=== PATIENT | male | born 1970 ===

== ENCOUNTER 2020-11-05 10:08 | Outpatient (REF) | payer MEDICAID, SELFPAY ==
[2020-11-05 11:34] LABS: MANUAL DIFF FLAG NO
[2020-11-05 11:52] LABS: Basophils Percent Auto 0.2 % (0-2); Eosinophils Absolute Auto 0.1 X10*3/uL (0.0-0.4); Eosinophils Percent Auto 1.2 % (0-4); Hematocrit 40.6 % (42-52); Hemoglobin 12.7 g/dl (14.0-18.0); Imm Gran Abs Auto 0.01 X10*3/uL (0.00-0.03); Imm Gran Pct Auto 0.2 % (0.0-0.4); Lymphocytes Absolute Auto 1.5 X10*3/uL (1.2-4.9); Lymphocytes Percent Auto 25.8 % (20-40); Mean Corpuscular HGB Conc 31.3 g/dl (31.0-36.0); Mean Corpuscular Hemoglobin 26.2 pg (27.0-33.0); Mean Corpuscular Volume 83.9 fL (80-98); Mean Platelet Volume 11.8 fL (9.4-12.4); Monocytes Absolute Auto 0.6 X10*3/uL (0.1-1.2); Monocytes Percent Auto 10.1 % (2-11); Neutrophils Absolute Auto 3.5 X10*3/uL (2.0-8.3); Neutrophils Percent Auto 62.5 % (45-73); Platelet Count 177 X10*3/uL (160-400); Red Blood Count 4.84 X10*6/uL (4.60-5.80); Red Cell Distribution Width 14.4 % (11.0-16.0); White Blood Count 5.6 X10*3/uL (4.8-10.8)
[2020-11-05 12:19] LABS: Alanine Aminotransferase 18 U/L (0-40); Albumin Level 4.4 g/dL (3.5-5.0); Alkaline Phosphatase 95 U/L (39-117); Anion Gap 13 (12-20); Aspartate Amino Transferase 16 U/L (5-37); Bilirubin Total 0.5 mg/dL (0.0-1.0); Blood Urea Nitrogen 9 mg/dL (9-16); Calcium 8.5 mg/dL (8.4-10.2); Carbon Dioxide 29 mmol/L (22-29); Chloride 104 mmol/L (96-108); Cholesterol 182 mg/dL; Estimated Glomerular Filt Rate > 60; Glucose Random 104 mg/dL (60-115); HDL Cholesterol 36 mg/dL; LDL Cholesterol Calculated 117 mg/dl; Potassium 4.5 mmol/l (3.3-5.1); Sodium 141 mmol/L (135-145); Total Protein 7.1 g/dL (6.5-8.0); Triglycerides 148 mg/dL
[2020-11-05 12:24] LABS: Estimated Average Glucose 120 mg/dL; Hemoglobin A1c % 5.8 %
== END 2020-11-05 10:09 | disposition home or self-care (01) ==
LOC: HO.LAB 10:08
PROVIDERS: PCP Internal Medicine; Visit Provider Internal Medicine
DX: Z00.00 Encounter for general adult medical examination without abnormal findings (principal); I10 Essential (primary) hypertension; E78.2 Mixed hyperlipidemia; G40.89 Other seizures; J45.909 Unspecified asthma, uncomplicated
CPT/HCPCS: 36415; 80053; 80061; 83036; 85025

== ENCOUNTER 2021-10-17 13:44 | Outpatient (REF) | payer MEDICAID, SELFPAY ==
--- NOTE | 2021-10-19 14:19 | MHC.AU.ANO ---
Adult Audiological Evaluation Date of Visit: 10/17/21 Reason for Appointment: Patient has been experiencing increased hearing difficulty. He has been placing the volume on the television at a louder volume than others around him can tolerate. He finds himself asking for repetition more frequently. He also has started to experience constant tinnitus, which he describes as a buzzing sound. Ear History: Recent Ear Drainage: None Reported Recent Ear Pain: None Reported Family History of Hearing Loss?: Recent Ear Infections: None Reported Bothersome Tinnitus/Ringing/Noises in Ears: Both Ears Medical History: Medical History: History of Pulmonary Embolism (on anticoagulants), Seizure Disorder, Hypertension Otoscopy: Right Ear: Unremarkable Left Ear: Unremarkable Tympanometry: Tympanometry performed due to: To assess integrity of the middle ear system Right Ear: Normal Middle Ear System (Type A) Left Ear: Reduced Middle Ear Compliance (Type As) Hearing Evaluation: Transducer(s) Used: Insert Earphones Method: Conventional Audiometry Stimuli Used: Pure Tones Right Ear: Description of Hearing: Mild to moderate/moderately-severe sensorineural hearing loss Left Ear: Description of Hearing: Mild to moderate/moderately-severe sensorineural hearing loss Speech Recognition Threshold (SRT): Method Used: Recorded Lists Stimuli Used: Swiss Trisyllable Words (Sign Shop Supervisor was not needed for today's appointment, as patient speaks Malay, but testing performed in Swiss as it is patient's primary language) Right Ear: 50 dBHL Left Ear: 50 dBHL Word Discrimination: Method: Recorded Lists Word Lists Used: Lista Bisil?bica (Swiss) Right Ear: 100% at 80 dBHL Left Ear: 92% at 80 dBHL Recommendations: Audiological re-evaluation in one year. Trial with amplification is recommended. See Hearing Aid Evaluation report for more information. Diagnosis: Primary Diagnosis: H90.3 Bilateral Sensorineural Hearing Loss Secondary Diagnosis: H93.13 Tinnitus, Bilateral Signature: Provider: Valerie Ledbetter, [facility]
--- NOTE | 2021-10-19 14:21 | MHC.AU.MED ---
Medical Clearance for Hearing Instrumentation Date: 10/19/21 Patient Name: Reynaldo Frey Date of : 1970 Referring Provider: Gretchen Schwab MD We have seen your patient on 10/17/21 and have determined that they are a candidate for amplification (See accompanying report). Specifically, they would benefit from: Hearing aid use in both ears There is a statute that addresses Medical Evaluation Requirements prior to fitting a patient with a hearing aid. According to [place] statute 265 CMR:6.03(1), (a) General. Except as provided in 265 CMR 6.03(1)(b), a hearing therapy teacher shall not sell a hearing aid unless the prospective user has presented to the hearing therapy teacher a written statement signed by a licensed physician that states that the patient's hearing loss has been medically evaluated and the patient may be considered a candidate for a hearing aid. The medical evaluation must have taken place within the preceding six months. Please note: Due to the [place] Statute referenced above, we cannot accept a signature other than that of a licensed physician. IN HOME TUTOR and PA signatures cannot be accepted. I am in agreement with the above recommendation. There is no medical contraindication for hearing instrumentation. Physician Signature Date Physician Name (Printed)
--- NOTE | 2021-10-19 14:22 | MHC.AU.HAS ---
Hearing Aid Evaluation Date of Visit: 10/17/21 Historical Information: Description of Hearing: Mild to moderate/moderately-severe sensorineural hearing loss Summary: Patient was seen for audiological evaluation (see separate report for details). Patient has not previously worn amplification. Hearing aid options were discussed. Hearing Aid Prescription: Based on the individual?s shared listening needs, communication environments, dexterity, desire for connectivity, and personal preferences, the following prescription for amplification has been made: Right ear: Communications Director: Phonak Model: Audeo P70-R Battery Size: Rechargeable Color: Silver Business Analyst Sales Operations: 0M Left ear: Communications Director: Phonak Model: Audeo P70-R Battery Size: Rechargeable Color: Silver Business Analyst Sales Operations: 0M Action Taken/Action Needed: Medical Clearance to be requested from PCP/ENT Hearing Instrument Fitting to be scheduled when materials arrive Primary Diagnosis: H90.3 Bilateral Sensorineural Hearing Loss Secondary Diagnosis: H93.13 Tinnitus, Bilateral Signature: Provider: Valerie Ledbetter, [facility]
--- NOTE | 2021-10-19 14:30 | MHC.AU.MED ---
Medical Clearance for Hearing Instrumentation Date: 10/19/21 Patient Name: Reynaldo Frey Date of : 1970 Referring Provider: Dr. Campbell We have seen your patient on 10/17/21 and have determined that they are a candidate for amplification (See accompanying report). Specifically, they would benefit from: Hearing aid use in both ears There is a statute that addresses Medical Evaluation Requirements prior to fitting a patient with a hearing aid. According to [place] statute [facility] CMR:6.03(1), (a) General. Except as provided in 265 CMR 6.03(1)(b), a hearing healthcare practitioner shall not sell a hearing aid unless the prospective user has presented to the hearing healthcare practitioner a written statement signed by a licensed physician that states that the patient's hearing loss has been medically evaluated and the patient may be considered a candidate for a hearing aid. The medical evaluation must have taken place within the preceding six months. Please note: Due to the [place] Statute referenced above, we cannot accept a signature other than that of a licensed physician. SLURRY MIXER and PA signatures cannot be accepted. I am in agreement with the above recommendation. There is no medical contraindication for hearing instrumentation. Physician Signature Date Physician Name (Printed)
== END 2021-10-17 13:45 | disposition home or self-care (01) ==
LOC: HO.SH 13:44
PROVIDERS: Visit Provider Internal Medicine
DX: Z46.1 Encounter for fitting and adjustment of hearing aid (principal); H90.3 Sensorineural hearing loss, bilateral; H93.13 Tinnitus, bilateral
CPT/HCPCS: 92557; 92567; 92591

== ENCOUNTER 2021-11-02 09:09 | Outpatient (REF) | payer MEDICAID, SELFPAY ==
--- NOTE | ~2021-11-02 | US_ITS ---
EXAMINATION: US ABDOMEN COMPLETE CLINICAL INFORMATION: Right upper quadrant pain. COMPARISON: CT abdomen and pelvis 03/28/2019. Ultrasound abdomen complete 08/30/2016 and 02/16/2014. TECHNIQUE: Real-time imaging of the abdominal viscera. FINDINGS: PANCREAS: Visualized portions unremarkable. ABDOMINAL AORTA: Visualized portions unremarkable. INFERIOR VENA CAVA: Visualized portions unremarkable. LIVER: Unremarkable. GALLBLADDER: Unremarkable. COMMON BILE DUCT: Normal in caliber measuring 0.2 cm in diameter. RIGHT KIDNEY: 11.3 cm. Unremarkable. LEFT KIDNEY: 11.0 cm. Small left peripelvic cysts. No nephrolithiasis. SPLEEN: 8.9 cm. Unremarkable. FREE FLUID: None. US/US abdomen complete IMPRESSION: 1. No significant right upper quadrant abnormality. 2. Small left peripelvic renal cysts demonstrate similar appearance to the previous CT scan.
== END 2021-11-02 09:10 | disposition home or self-care (01) ==
LOC: HO.US 09:09
PROVIDERS: PCP Internal Medicine; Visit Provider Internal Medicine
DX: R10.11 Right upper quadrant pain (principal)
CPT/HCPCS: 76700

== ENCOUNTER 2021-11-17 10:35 | Outpatient (REF) | payer MEDICAID, SELFPAY ==
--- NOTE | 2021-11-17 15:15 | MHC.AU.HFA ---
Hearing Instrument Fitting- Adult- Binaural Date of Visit: 11/17/21 Hearing Instruments Dispensed: Right Ear: Audit Practice Intern: Phonak Model: Audeo P70-R Serial Number: [id number] Repair Warranty: 02/06/2025 Loss and Damage Warranty: 02/06/2025 Service Plan: 11/17/2022 Battery Size: Rechargeable Color: Silver Prevention Specialist: 0M Type of Dome: Small Vented Type of Wax Guard: CeruShield Left Ear: Audit Practice Intern: Phonak Model: Audeo P70-R Serial Number: [id number] Repair Warranty: 02/06/2025 Loss and Damage Warranty: 02/06/2025 Service Plan: 11/17/2022 Battery Size: Rechargeable Color: Silver Prevention Specialist: 0M Type of Dome: Small Vented Type of Wax Guard: CeruShield Summary of Fitting: Feedback appraisal manager run. Verifit performed and levels adjusted to better reach targets. Patient initially felt the sound was too loud. Lowered target gain until patient felt it was comfortable- at 80%. Patient was pleased with the sound of the hearing aids. Hearing aid care and use were discussed and demonstrated. He did not want the hearing aids paired to his phone at this time. Recommendations: Recommendations: A hearing instrument follow-up was scheduled. Signature: Provider: Valerie Ledbetter CCC-A
== END 2021-11-17 10:36 | disposition home or self-care (01) ==
LOC: HO.HAP 10:35
PROVIDERS: Visit Provider Internal Medicine
DX: Z46.1 Encounter for fitting and adjustment of hearing aid (principal); H90.3 Sensorineural hearing loss, bilateral; H93.13 Tinnitus, bilateral
CPT/HCPCS: V5011; V5020; V5160; V5261

== ENCOUNTER 2022-01-05 08:32 | Outpatient (REF) | payer MEDICAID, SELFPAY ==
--- NOTE | ~2022-01-05 | CT_ITS ---
EXAMINATION: CT ABDOMEN AND PELVIS WITH CONTRAST CLINICAL INFORMATION: Right upper quadrant pain COMPARISON: CT abdomen pelvis 03/28/2019 TECHNIQUE: Multidetector volumetric images were obtained from the superior aspect of the liver through the pubic symphysis following administration 85 mL of Omnipaque 350 intravenous contrast. Sagittal and coronal reformatted images were obtained on the technologist's workstation. Oral contrast: No This CT examination was performed using dose optimization techniques as appropriate, variously including the following: *Automated exposure control *Adjustment of mA and/or kV according to patient size (this includes techniques or standardized protocols for targeted exams where dose is matched to indication/reason for exam; i.e. extremities or head) *Use of iterative reconstruction technique DLP: 475 mGy-cm FINDINGS: LUNG BASES: Unremarkable. ABDOMINAL AND PELVIC WALL: Small fat-containing umbilical hernia. LIVER AND BILIARY TREE: Unremarkable. GALLBLADDER: Unremarkable. PANCREAS: Unremarkable. SPLEEN: Unremarkable. ADRENAL GLANDS: Unremarkable. KIDNEYS AND URETERS: Benign-appearing left peripelvic renal cysts, no imaging follow-up recommended. GASTROINTESTINAL TRACT: Small hiatal hernia. Colonic diverticulosis without evidence of diverticulitis. Normal appendix. VASCULAR: Unremarkable. LYMPH NODES/PERITONEUM: No lymphadenopathy. FREE FLUID: None. BLADDER: Unremarkable. PELVIC VISCERA: Unremarkable. OSSEOUS STRUCTURES: Stable sclerotic lesions in the right femoral head which may reflect bone islands. CT/CT abdomen pelvis w con IMPRESSION: No acute findings to plain symptoms of abdominal pain. Colonic diverticulosis without evidence of diverticulitis.
[2022-01-05 09:44] LABS: Anion Gap 14 (12-20); Blood Urea Nitrogen 16 mg/dL (9-16); Calcium 10.1 mg/dL (8.4-10.2); Carbon Dioxide 30 mmol/L (22-29); Chloride 103 mmol/L (96-108); Estimated Glomerular Filt Rate > 60; Glucose Random 109 mg/dL (60-115); Lipase 28 U/L (8-78); Potassium 4.8 mmol/L (3.3-5.1); Sodium 142 mmol/L (135-145)
[2022-01-05] MEDS: iohexoL 350 MG/ML 100 ML INFUS..BTL 85 ML IV (11:56)
== END 2022-01-05 08:33 | disposition home or self-care (01) ==
LOC: HO.CT 08:32
PROVIDERS: PCP Internal Medicine; Visit Provider Internal Medicine
DX: R10.11 Right upper quadrant pain (principal); K42.9 Umbilical hernia without obstruction or gangrene
CPT/HCPCS: 36415; 74177; 80048; 83690; Q9967

== ENCOUNTER → 2022-01-20 09:40 | Outpatient (BNVA) | payer MEDICAID, SELFPAY | PROVIDERS: PCP Internal Medicine; Visit Provider Surgery | DX: K44.9 Diaphragmatic hernia without obstruction or gangrene (principal) | CPT/HCPCS: 99212 ==

== ENCOUNTER → 2022-02-10 08:56 | Outpatient (BNVA) | payer MEDICAID, SELFPAY | PROVIDERS: PCP Internal Medicine; Visit Provider Surgery | DX: K44.9 Diaphragmatic hernia without obstruction or gangrene (principal) | CPT/HCPCS: 99202 ==

== ENCOUNTER 2022-04-13 08:34 | Outpatient (REF) | payer MEDICAID, SELFPAY ==
--- NOTE | ~2022-04-13 | XR_ITS ---
EXAMINATION: XR FOOT, RIGHT XR FOOT, LEFT CLINICAL INFORMATION: Pain COMPARISON: None TECHNIQUE: 3 views of the right foot 3 views of the left foot FINDINGS: RIGHT: No acute visible fracture or dislocation. Mild multi joint degenerative changes. Plantar calcaneal heel spur. Joint spaces and alignment are maintained. Soft tissues are unremarkable. LEFT: No acute visible fracture or dislocation. Mild multi joint degenerative changes. Small plantar calcaneal heel spur. Joint spaces and alignment are maintained. Soft tissues are unremarkable. XR/XR foot LT min 3V IMPRESSION: 1. No acute visible fracture or dislocation. 2. Bilateral mild multi joint degenerative changes with bilateral plantar calcaneal heel spurs.
--- NOTE | ~2022-04-13 | XR_ITS ---
EXAMINATION: XR FOOT, RIGHT XR FOOT, LEFT CLINICAL INFORMATION: Pain COMPARISON: None TECHNIQUE: 3 views of the right foot 3 views of the left foot FINDINGS: RIGHT: No acute visible fracture or dislocation. Mild multi joint degenerative changes. Plantar calcaneal heel spur. Joint spaces and alignment are maintained. Soft tissues are unremarkable. LEFT: No acute visible fracture or dislocation. Mild multi joint degenerative changes. Small plantar calcaneal heel spur. Joint spaces and alignment are maintained. Soft tissues are unremarkable. XR/XR foot RT min 3V IMPRESSION: 1. No acute visible fracture or dislocation. 2. Bilateral mild multi joint degenerative changes with bilateral plantar calcaneal heel spurs.
== END 2022-04-13 08:35 | disposition home or self-care (01) ==
LOC: HO.XRAY 08:34
PROVIDERS: Absent Provider Internal Medicine; PCP Internal Medicine; Visit Provider Emergency Medicine
DX: M79.671 Pain in right foot (principal); M79.672 Pain in left foot
CPT/HCPCS: 73630

== ENCOUNTER → 2022-07-19 14:12 | Outpatient (BNVA) | payer MEDICAID, SELFPAY | PROVIDERS: PCP Internal Medicine; Visit Provider Urology | DX: N40.1 Benign prostatic hyperplasia with lower urinary tract symptoms (principal); N13.8 Other obstructive and reflux uropathy | CPT/HCPCS: 51798; 99202 ==

== ENCOUNTER 2022-09-18 18:56 | Emergency (ER) | payer MEDICAID, SELFPAY ==
[2022-09-18 19:23] VITALS: BP 139/79; PULSE 96; RESP 18; TEMP 36.7; O2SAT 98; BMI 34.9
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
== END 2022-09-18 20:34 | disposition left against medical advice (07) ==
PROVIDERS: Emergency Provider Emergency Medicine
DX: R10.9 Unspecified abdominal pain (principal); I10 Essential (primary) hypertension; E78.5 Hyperlipidemia, unspecified; Z86.711 Personal history of pulmonary embolism; Z79.01 Long term (current) use of anticoagulants; Z79.02 Long term (current) use of antithrombotics/antiplatelets; Z79.899 Other long term (current) drug therapy
CPT/HCPCS: 99281

== ENCOUNTER 2022-12-29 08:24 | Day surgery (SDC) | payer MEDICAID, SELFPAY ==
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
[2022-12-29 09:19] VITALS: BMI 35.9
[2022-12-29] MEDS: Lactated Ringers 1,000 ML 100 ML IVCONT (09:23)
[2022-12-29 09:39] VITALS: BP 152/80; PULSE 82; RESP 18; TEMP 36.7; O2SAT 98
--- NOTE | 2022-12-29 09:59 | PC.NURSE ---
IV attempt by author. Insertion by jack liu rn
--- NOTE | 2022-12-29 10:44 | MHC.SHP ---
Pre-Procedural Eval Section A Date of Service: 12/29/22 Section B Chief Complaint: Diverticulitis of large intestine without perforat Details of Present Illness: see H*P no changes Relevant Family History (Specify if Yes): No Relevant Social History: None Present Medications: see Short Stay Collaborative assessment Medical History: No relevant PMH History of Previous Operations: No relevant previous surgery Allergies: Allergies Allergy/AdvReac Type Severity Reaction Status Date / Time peanut [PEANUT] Allergy Mild HIVES Verified 09/18/22 19:30 penicillin V Allergy Unknown rash Verified 09/18/22 19:30 Penicillins Allergy Unknown HIVES Verified 09/18/22 19:30 FRUIT Allergy Severe ANAPHYLAXIS Uncoded 09/18/22 19:30 Review of Systems Sugical H&P ROS: Negative: Constitution, Cardiovascular, Respiratory, Neurological, Psychiatric, Hem-Onc, Allergic/Immunologic, Gastrointestinal, Genitourinary, Musculoskeletal, Integumentary, Endocrine and Eyes/Ears/Nose/Throat Exam Surgical H&P Exam: Normal: HEENT, Normal: Heart, Normal: Lungs, Normal: Extremities, Normal: Abdomen, Normal: Skin and Normal: Neurological Plan Diagnosis/Plan: Unchanged I have reviewed the history and physical and performed a pertinent physical examination on my patient. No changes have occurred unless specified. Time Spent With Patient Time: Total time managing care of this patient today ____ minutes.
[2022-12-29 11:14] VITALS: BP 117/62; PULSE 85; RESP 20; TEMP 36.7; O2SAT 96
--- NOTE | 2022-12-29 11:18 | P.BOP_ITS ---
Brief Operative Note Date of Service: 12/29/22 Pre-op diagnosis: diverticulitis Post-op diagnosis: same Procedure: colonosocpy Surgeon: Raphael Powell Anesthesia: MAC Was an Android Platform Developer used for this Procedure?: No Estimated blood loss (mL): 0 Pathology: none sent Condition: stable Disposition: PACU
[2022-12-29 11:29] VITALS: BP 136/81; PULSE 80; RESP 18; TEMP 36.9; O2SAT 98
--- NOTE | 2022-12-29 12:07 | OP_ITS ---
SURGEON: Raphael Powell MD INDICATIONS: Diverticulitis. PREOPERATIVE DIAGNOSIS: POSTOPERATIVE DIAGNOSIS: PROCEDURE PERFORMED: Colonoscopy to the terminal ileum. ESTIMATED BLOOD LOSS: COMPLICATIONS: ANESTHESIA: Monitored anesthesia care. ASSISTANTS: SPECIMENS: DESCRIPTION OF PROCEDURE: A history and physical was performed. The procedure was performed on 12/29/2022. Risks and benefits of the procedure were explained to the patient, and informed consent was obtained. The patient was placed in the left lateral decubitus position. A digital rectal exam was performed and was found to be normal. The Olympus pediatric video colonoscope was introduced into the rectum and advanced to the cecum with difficulty. The cecum was identified by transillumination, palpation, and identification of the ileocecal valve. Examination was performed. The scope was removed. He tolerated the procedure well and was returned to the recovery area in stable condition. FINDINGS: The terminal ileum was examined and appeared normal. The visualized colonic mucosa was normal. The quality of the prep was good. No polyps were identified. There was moderate diverticulosis in the sigmoid, extending from 20 cm to about 40 cm. There was no evidence of diverticulitis. There was no luminal narrowing. Retroflexed examination showed some small internal hemorrhoids. IMPRESSION: Diverticulosis. RECOMMENDATION: 1. Follow up as needed. 2. Repeat colonoscopy is recommended in 10 years for average risk individuals. MD BHUPINDER Jones/NOBLE / [id number]
== END 2022-12-29 12:43 | disposition home or self-care (01) ==
PROVIDERS: Visit Provider Internal Medicine Gastroenterology
PROC: 0DJD8ZZ Inspection of Lower Intestinal Tract, Via Natural or Artificial Opening Endoscopic (ICD-10-PCS; CPT 45378; principal; 2022-12-29 10:20)
DX: K57.30 Diverticulosis of large intestine without perforation or abscess without bleeding (principal); R14.0 Abdominal distension (gaseous); K64.8 Other hemorrhoids; K92.89 Other specified diseases of the digestive system; G40.909 Epilepsy, unspecified, not intractable, without status epilepticus; M81.0 Age-related osteoporosis without current pathological fracture; I10 Essential (primary) hypertension; E78.00 Pure hypercholesterolemia, unspecified; J45.909 Unspecified asthma, uncomplicated; F43.10 Post-traumatic stress disorder, unspecified; Z86.718 Personal history of other venous thrombosis and embolism; Z79.01 Long term (current) use of anticoagulants; Z79.899 Other long term (current) drug therapy; Z87.828 Personal history of other (healed) physical injury and trauma; Z98.890 Other specified postprocedural states; Z88.0 Allergy status to penicillin
CPT/HCPCS: 45378

== ENCOUNTER → 2023-01-12 15:08 | Outpatient (BNVA) | payer MEDICAID, SELFPAY | PROVIDERS: Visit Provider Urology | DX: N40.1 Benign prostatic hyperplasia with lower urinary tract symptoms (principal); N13.8 Other obstructive and reflux uropathy; Z79.01 Long term (current) use of anticoagulants | CPT/HCPCS: 51798; 99212 ==

== ENCOUNTER 2023-04-27 09:22 | Outpatient (REF) | payer MEDICAID, SELFPAY ==
[2023-04-27 11:28] LABS: Anion Gap 13 (12-20); Blood Urea Nitrogen 14 mg/dL (9-16); Calcium 9.7 mg/dL (8.4-10.2); Carbon Dioxide 28 mmol/L (22-29); Chloride 101 mmol/L (96-108); Estimated Glomerular Filt Rate > 60; Glucose Random 127 mg/dL (60-115); Potassium 3.4 mmol/L (3.3-5.1); Sodium 139 mmol/L (135-145)
== END 2023-04-27 09:23 | disposition home or self-care (01) ==
LOC: HO.LAB 09:22
PROVIDERS: PCP Registered Nurse; Visit Provider Registered Nurse
DX: R10.9 Unspecified abdominal pain (principal)
CPT/HCPCS: 36415; 80048

== ENCOUNTER 2023-05-17 06:10 | Outpatient (REF) | payer MEDICAID, SELFPAY ==
--- NOTE | ~2023-05-17 | CT_ITS ---
EXAMINATION: CT ABDOMEN AND PELVIS WITH CONTRAST CLINICAL INFORMATION: Right lower quadrant abdominal pain. COMPARISON: None available. TECHNIQUE: Multidetector volumetric images were obtained from the superior aspect of the liver through the pubic symphysis following administration 85 mL of Omnipaque 350 intravenous contrast. Sagittal and coronal reformatted images were obtained on the technologist's workstation. Oral contrast: No This CT examination was performed using dose optimization techniques as appropriate, variously including the following: *Automated exposure control *Adjustment of mA and/or kV according to patient size (this includes techniques or standardized protocols for targeted exams where dose is matched to indication/reason for exam; i.e. extremities or head) *Use of iterative reconstruction technique DLP: 522 mGy-cm. FINDINGS: LUNG BASES: The visualized lung bases are unremarkable. LIVER, GALLBLADDER, AND BILIARY TREE: The liver is normal in size, shape, and attenuation. There are punctate hypodensities in the right hepatic lobe, probable tiny cyst. The gallbladder is unremarkable with no evidence of radiopaque gallstones, gallbladder wall thickening, or obvious pericholecystic inflammatory changes. PANCREAS: Unremarkable. SPLEEN: Unremarkable. ADRENAL GLANDS: Unremarkable. KIDNEYS AND URETERS: The kidneys are normal in size, shape, and attenuation. No hydronephrosis, hydroureter, or calculi seen. No perinephric stranding. BLADDER: Unremarkable. GASTROINTESTINAL TRACT: There is scattered stool, oral contrast in the colon without distention. Few scattered diverticuli are seen in the sigmoid and descending colon without diverticulitis. The small bowel loops are normal caliber. The appendix is normal caliber. The stomach is nondistended and unremarkable. ABDOMINAL WALL: No significant hernia is appreciated. There is a linear scar in the right para midline abdomen, axial image 62/3, not seen previously. LYMPH NODES: Normal. VASCULAR: Unremarkable. PELVIC VISCERA: Unremarkable. OSSEOUS STRUCTURES: Mild degenerative disc changes L5-S1 disc levels with ventral and posterior spondylosis. No aggressive lytic or sclerotic process seen. CT/CT abdomen pelvis w IV con IMPRESSION: 1. No acute intra-abdominal process seen. 2. Scattered sigmoid and descending colon diverticulosis without diverticulitis. Normal appendix. 3. No radiopaque urolith or hydroureteronephrosis. Fleischner guidelines were followed.
[2023-05-17] MEDS: iohexoL 350 MG/ML 100 ML INFUS..BTL 85 ML IV (09:00)
[2023-05-17] MEDS: Barium Sulfate Oral (Vanilla) 450 ML ORAL.SUSP 900 ML PO (09:04)
== END 2023-05-17 06:11 | disposition home or self-care (01) ==
LOC: HO.CT 06:10
PROVIDERS: PCP Registered Nurse; Visit Provider Registered Nurse
DX: R10.31 Right lower quadrant pain (principal)
CPT/HCPCS: 74177; Q9967

== ENCOUNTER 2023-05-18 14:05 | Outpatient (REF) | payer MEDICAID, SELFPAY ==
[2023-05-18 17:15] LABS: Prostate Specific Antigen 0.76 ng/mL (<0.05-4.0)
== END 2023-05-18 14:06 | disposition home or self-care (01) ==
LOC: HO.HHCL 14:05
PROVIDERS: Visit Provider Registered Nurse
DX: Z12.5 Encounter for screening for malignant neoplasm of prostate (principal); N40.1 Benign prostatic hyperplasia with lower urinary tract symptoms; R39.14 Feeling of incomplete bladder emptying
CPT/HCPCS: 36415; 84153

== ENCOUNTER 2023-06-03 11:32 | Emergency (ER) | payer MEDICAID, SELFPAY ==
--- NOTE | ~2023-06-03 | CT_ITS ---
EXAMINATION: CT ANGIOGRAM OF THE CHEST WITH AND WITHOUT CONTRAST (CT PULMONARY ANGIOGRAM FOR PE) CLINICAL INFORMATION: Reason for Exam Pleuritic chest pain x3 days H/O PE, on Eliquis COMPARISON: None available. TECHNIQUE: Prior to contrast administration, noncontrast localization images were obtained. Subsequently, multidetector volumetric imaging was performed from the thoracic inlet to below the diaphragms following the administration of 80 mL Omnipaque 350 intravenous contrast. No contrast reaction reported Sagittal, coronal, and MIP oblique sagittal reformatted images were obtained on the CT workstation, uploaded to PACS, and reviewed. This CT examination was performed using dose optimization techniques as appropriate, variously including the following: *Automated exposure control *Adjustment of mA and/or kV according to patient size (this includes techniques or standardized protocols for targeted exams where dose is matched to indication/reason for exam; i.e. extremities or head) *Use of iterative reconstruction technique Total exam dose-length product 355 mGy-cm FINDINGS: QUALITY OF STUDY/CONTRAST BOLUS: Satisfactory. PULMONARY ARTERIES: No pulmonary emboli. THORACIC AORTA: No aneurysm. LUNG: The lungs are well-expanded and clear of acute pneumonic process. No pulmonary nodules, mass or consolidation seen. No groundglass density noted. PLEURA: No pleural effusion or pneumothorax. MEDIASTINUM: The thyroid lobes are symmetrical and normal. The central trachea and the bronchi widely patent. Heart size and the great vessels are normal caliber. No pericardial effusion seen. No evidence of septal bowing or right heart strain. CORONARY ARTERY CALCIFICATION: None visualized on this study. CHEST WALL/AXILLA: No axillary or internal mammary lymphadenopathy. OSSEOUS STRUCTURES: No aggressive lytic or sclerotic process seen. UPPER ABDOMEN: Scattered colonic diverticuli. Liver, spleen, gallbladder and adrenal glands are unremarkable. No reflux of contrast into the hepatic veins to suggest elevated right heart pressures. CT/CT angio chest PE protocol IMPRESSION: No evidence of PE. No evidence of aortic aneurysm or dissection. Clear lungs. VTE: negative
--- NOTE | ~2023-06-03 | XR_ITS ---
EXAMINATION: XR CHEST CLINICAL INFORMATION: Chest pain COMPARISON: Previous chest x-ray from 2018 TECHNIQUE: Frontal view of the chest was obtained. FINDINGS: No significant abnormality is noted involving the heart, lungs, mediastinum, bony thorax or soft tissues. Mild degenerative changes of the spine. XR/XR chest 1V IMPRESSION: Unremarkable examination.
--- NOTE | 2023-06-03 11:34 | ECG_ITS ---
Test Reason : Chest Pain Blood Pressure : / mmHG Vent. Rate : 081 BPM Atrial Rate : 081 BPM P-R Int : 180 ms QRS Dur : 090 ms QT Int : 354 ms P-R-T Axes : 038 014 018 degrees QTc Int : 411 ms Normal sinus rhythm Normal ECG When compared to the previous EKG of No significant changes seen Referred By: Alex Porter Electronically Signed By:GUILLERMO DALLAS MD
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
[2023-06-03 11:52] LABS: MANUAL DIFF FLAG NO
[2023-06-03 11:54] LABS: Basophils Percent Auto 0.3 % (0-2); Eosinophils Absolute Auto 0.1 X10*3/uL (0.0-0.4); Eosinophils Percent Auto 1.8 % (0-4); Hemoglobin 12.3 g/dl (14.0-18.0); Imm Gran Abs Auto 0.01 X10*3/uL (0.00-0.03); Imm Gran Pct Auto 0.2 % (0.0-0.4); Lymphocytes Absolute Auto 2.1 X10*3/uL (1.2-4.9); Lymphocytes Percent Auto 32.5 % (20-40); Mean Corpuscular HGB Conc 31.5 g/dl (31.0-36.0); Mean Corpuscular Hemoglobin 25.8 pg (27.0-33.0); Mean Corpuscular Volume 81.9 fL (80.0-98.0); Mean Platelet Volume 11.2 fL (9.4-12.4); Monocytes Absolute Auto 0.5 X10*3/uL (0.1-1.2); Monocytes Percent Auto 8.2 % (2-11); Neutrophils Absolute Auto 3.7 x10*3/uL (2.0-8.3); Platelet Count 230 X10*3/uL (160-400); Red Blood Count 4.76 X10*6/uL (4.60-5.80); Red Cell Distribution Width 13.7 % (11.0-16.0); White Blood Count 6.5 X10*3/uL (4.8-10.8)
[2023-06-03 12:01] VITALS: BP 116/70; PULSE 73; RESP 18; TEMP 36.7; O2SAT 97; BMI 32.9
[2023-06-03 12:01] LABS: INTERNATIONAL NORM RATIO 1.2 (0.9-1.1)
[2023-06-03 12:04] LABS: Partial Thromboplastin Time 44.1 SEC (26.0-36.4)
[2023-06-03 12:07] LABS: D Dimer High Sensitivity < 150 NG/ML
[2023-06-03 12:20] LABS: Alanine Aminotransferase 30 U/L (0-40); Albumin Level 4.3 g/dL (3.5-5.0); Alkaline Phosphatase 96 U/L (39-117); Anion Gap 13 (12-20); Aspartate Amino Transferase 20 U/L (5-37); Bilirubin Total 0.5 mg/dL (0.0-1.0); Blood Urea Nitrogen 10 mg/dL (9-16); Calcium 9.8 mg/dL (8.4-10.2); Carbon Dioxide 29 mmol/L (22-29); Chloride 103 mmol/L (96-108); Creatinine Clr Calc Pharmacy 122.2; Estimated Glomerular Filt Rate > 60; Glucose Random 103 mg/dL (60-115); Potassium 3.9 mmol/L (3.3-5.1); Sodium 141 mmol/L (135-145); Total Protein 7.5 g/dL (6.5-8.0)
[2023-06-03 12:32] VITALS: BP 122/74; PULSE 76; RESP 18; TEMP 37.1; O2SAT 96
[2023-06-03 12:33] LABS: B Type Natriuretic Peptide 14 pg/mL (<100)
--- NOTE | 2023-06-03 12:39 | PC.NURSE ---
Alert and oriented, reports left sided chest pain that extends to left side and shoulder. States pain sob, and headache started 3 days ago. Denies sick contact, states hx of colon surgery a few months ago. nsr on monitor, vss.
[2023-06-03 12:56] LABS: Troponin-I High Sensitivity < 2.7 ng/L (<3.5-35.0)
[2023-06-03] MEDS: 0.9 % Sodium Chloride 1,000 ML 999 ML IV (14:23)
[2023-06-03] MEDS: Morphine Sulfate 4 MG/ML CARTRIDGE IVPUSH ×2 (14:26→16:18)
[2023-06-03 14:31] VITALS: BP 133/76; PULSE 71; RESP 17; O2SAT 98
[2023-06-03] MEDS: iohexoL 350 MG/ML 100 ML INFUS..BTL 65 ML IV (15:12)
--- NOTE | 2023-06-03 17:12 | PC.NURSE ---
Discharge instructions reviewed with patient who verbalized understanding, patient reports pain is much improved.
== END 2023-06-03 17:13 | disposition home or self-care (01) ==
PROVIDERS: Physician Assistant; Emergency Provider Emergency Medicine Emergency Medical Services; PCP Registered Nurse
DX: R07.89 Other chest pain (principal); R07.81 Pleurodynia; R06.02 Shortness of breath; R51.9 Headache, unspecified; M25.512 Pain in left shoulder; Z79.899 Other long term (current) drug therapy
CPT/HCPCS: 36415; 71045; 71275; 80053; 83880; 84484; 85025; 85379; 85610; 85730; 93005; 96361; 96374; 96376; 99284; 99285; J2270; Q9967

== ENCOUNTER → 2023-06-03 11:34 | Outpatient (BNV) | payer MEDICAID, SELFPAY | PROVIDERS: Emergency Provider Emergency Medicine Emergency Medical Services; PCP Registered Nurse; Visit Provider Internal Medicine Cardiovascular Disease | DX: R07.9 Chest pain, unspecified (principal) | CPT/HCPCS: 93010 ==

== ENCOUNTER 2023-07-06 10:54 | Outpatient (REF) | payer MEDICAID, SELFPAY ==
--- NOTE | ~2023-07-06 | XR_ITS ---
EXAMINATION: XR SHOULDER, LEFT CLINICAL INFORMATION: Acute pain left shoulder COMPARISON: Left clavicle 01/14/2015 TECHNIQUE: AP external rotation, Grashey, scapular Y, and axillary views of the left shoulder. FINDINGS: The bones are intact. No fracture. Glenohumeral and acromioclavicular alignment is anatomic with normal glenohumeral joint space. Mild degenerative change of the acromioclavicular joint. No abnormal soft tissue calcifications. XR/XR shoulder LT min 2V IMPRESSION: 1. No acute bony abnormality. 2. Mild degenerative change of the acromioclavicular joint.
== END 2023-07-06 10:55 | disposition home or self-care (01) ==
LOC: HO.XRAY 10:54
PROVIDERS: Visit Provider Internal Medicine
DX: M25.512 Pain in left shoulder (principal)
CPT/HCPCS: 73030

== ENCOUNTER 2023-07-18 13:36 | Outpatient (AMB) | payer MEDICAID, SELFPAY ==
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
== END 2023-07-18 14:43 | disposition home or self-care (01) ==
PROVIDERS: PCP Registered Nurse; Visit Provider Urology
DX: N40.1 Benign prostatic hyperplasia with lower urinary tract symptoms (principal); N13.8 Other obstructive and reflux uropathy; N52.9 Male erectile dysfunction, unspecified; Z13.9 Encounter for screening, unspecified
CPT/HCPCS: 99214

== ENCOUNTER → 2023-07-18 13:36 | Outpatient (BNVA) | payer MEDICAID, SELFPAY | PROVIDERS: Visit Provider Urology | DX: N40.1 Benign prostatic hyperplasia with lower urinary tract symptoms (principal); N13.8 Other obstructive and reflux uropathy; N52.9 Male erectile dysfunction, unspecified | CPT/HCPCS: 51798; 81003; 99212 ==

== ENCOUNTER 2023-09-11 14:58 | Outpatient (AMB) | payer MEDICAID, SELFPAY ==
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
== END 2023-09-11 15:24 | disposition home or self-care (01) ==
LOC: HO.HUSH 14:58
PROVIDERS: PCP Registered Nurse; Visit Provider Urology
DX: N40.1 Benign prostatic hyperplasia with lower urinary tract symptoms (principal); N13.8 Other obstructive and reflux uropathy; N52.03 Combined arterial insufficiency and corporo-venous occlusive erectile dysfunction
CPT/HCPCS: 99213

== ENCOUNTER → 2023-09-11 14:58 | Outpatient (BNVA) | payer MEDICAID, SELFPAY | PROVIDERS: PCP Registered Nurse; Visit Provider Urology ==

== ENCOUNTER 2023-10-03 13:07 | Outpatient (AMB) | payer MEDICAID, SELFPAY ==
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
== END 2023-10-03 13:39 | disposition home or self-care (01) ==
PROVIDERS: PCP Registered Nurse; Visit Provider Orthopaedic Surgery
DX: M25.512 Pain in left shoulder (principal)
CPT/HCPCS: 99202

== ENCOUNTER → 2023-10-03 13:07 | Outpatient (BNVA) | payer MEDICAID, SELFPAY | PROVIDERS: PCP Registered Nurse; Visit Provider Orthopaedic Surgery | DX: M25.512 Pain in left shoulder (principal) | CPT/HCPCS: 99202 ==

== ENCOUNTER 2023-11-15 10:07 | Outpatient (REF) | payer MEDICAID, SELFPAY ==
[2023-11-16 09:39] LABS: Adenovirus F 40/41 Not Detected (Not Detect.); Astrovirus Not Detected (Not Detect.); Campylobacter Not Detected (Not Detect.); Cryptosporidium Not Detected (Not Detect.); Cyclospora cayetanensis Not Detected (Not Detect.); E. coli EAEC Not Detected (Not Detect.); E. coli EPEC Not Detected (Not Detect.); E. coli ETEC Not Detected (Not Detect.); E. coli STEC Not Detected (Not Detect.); Entamoeba histolytica Not Detected (Not Detect.); Giardia lamblia Not Detected (Not Detect.); Norovirus GI/GII Not Detected (Not Detect.); Plesiomonas shigelloides Not Detected (Not Detect.); Rotavirus A Not Detected (Not Detect.); Salmonella Not Detected (Not Detect.); Sapovirus Not Detected (Not Detect.); Shigella sp./EIEC Not Detected (Not Detect.); Vibrio Not Detected (Not Detect.); Vibrio Cholerae Not Detected (Not Detect.); Yersinia enterocolitica Not Detected (Not Detect.)
== END 2023-11-15 10:08 | disposition home or self-care (01) ==
LOC: HO.HHCLNP 10:07
PROVIDERS: Visit Provider Emergency Medicine
DX: R19.5 Other fecal abnormalities (principal)
CPT/HCPCS: 82274; 87338; 87507

== ENCOUNTER 2023-11-19 16:43 | Outpatient (REF) | payer MEDICAID, SELFPAY ==
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
== END 2023-11-19 16:44 | disposition home or self-care (01) ==
LOC: HO.XRAY 16:43
PROVIDERS: Visit Provider Internal Medicine
DX: Z13.89 Encounter for screening for other disorder (principal)

== ENCOUNTER 2023-11-22 10:28 | Outpatient (REF) | payer MEDICAID, SELFPAY ==
[2023-11-22 15:01] LABS: OBS Int Ctl Valid YES; OBS1 NEGATIVE (NEGATIVE)
[2023-11-22 15:02] LABS: OBS Lot 50322
== END 2023-11-22 10:29 | disposition home or self-care (01) ==
LOC: HO.HHCL 10:28
PROVIDERS: Visit Provider Emergency Medicine
DX: R19.5 Other fecal abnormalities (principal)
CPT/HCPCS: 82272

== ENCOUNTER 2023-11-26 19:09 | Outpatient (REF) | payer MEDICAID, SELFPAY ==
--- NOTE | ~2023-11-26 | MR_ITS ---
EXAMINATION: MR SHOULDER WITHOUT CONTRAST, LEFT CLINICAL INFORMATION: Left shoulder pain with limited range of motion. COMPARISON: Left shoulder radiographs dated 07/06/2023. TECHNIQUE: MRI of the shoulder without contrast was performed on a high-field scanner. FINDINGS: ROTATOR CUFF: Mild supraspinatus tendinosis. Moderate subscapularis tendinosis with articular surface partial tearing measuring up to 2.9 cm in ML dimension. No muscle atrophy or fatty infiltration. BICEPS: Trace fluid within the proximal long head biceps tendon sheath, consistent with minimal tenosynovitis. No transverse tendon tear or tendon retraction. 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 The undersurface of the acromion is curved with no subacromial spur. Mild acromioclavicular osteoarthritis. LABRUM/CAPSULE: No displaced labral tear. Intact joint capsule. GLENOHUMERAL JOINT/MARROW: Inferior glenoid full-thickness articular cartilage fissuring with underlying subchondral cystic change. Tiny marginal osteophytes. MR/MR shoulder LT wo con IMPRESSION: 1. Moderate subscapularis tendinosis with articular surface partial tearing measuring 2.9 cm in ML dimension. Mild supraspinatus tendinosis. 2. Minimal proximal long head biceps tenosynovitis without a measurable tendon tear. 3. 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 Mild acromioclavicular osteoarthritis. 4. Mild glenohumeral osteoarthritis.
== END 2023-11-26 19:10 | disposition home or self-care (01) ==
LOC: HO.MRI 19:09
PROVIDERS: PCP Registered Nurse; Visit Provider Orthopaedic Surgery
DX: M25.512 Pain in left shoulder (principal)
CPT/HCPCS: 73221

== ENCOUNTER 2023-12-05 14:29 | Outpatient (AMB) | payer MEDICAID, SELFPAY ==
[2023-12-05 14:41] VITALS: BMI 32.9
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
== END 2023-12-05 15:18 | disposition home or self-care (01) ==
PROVIDERS: PCP Registered Nurse; Visit Provider Orthopaedic Surgery
DX: M54.2 Cervicalgia (principal); M25.512 Pain in left shoulder
CPT/HCPCS: 99213

== ENCOUNTER → 2023-12-05 14:29 | Outpatient (BNVA) | payer MEDICAID, SELFPAY | PROVIDERS: PCP Registered Nurse; Visit Provider Orthopaedic Surgery | DX: M54.2 Cervicalgia (principal); M25.512 Pain in left shoulder | CPT/HCPCS: 99212 ==

== ENCOUNTER 2023-12-17 19:05 | Outpatient (REF) | payer MEDICAID, SELFPAY ==
--- NOTE | ~2023-12-17 | MR_ITS ---
EXAMINATION: MR CERVICAL SPINE WITHOUT CONTRAST CLINICAL INFORMATION: Cervicalgia. COMPARISON: Cervical radiographs 01/14/2015. TECHNIQUE: MRI of the cervical spine was obtained using routine sequences without contrast. FINDINGS: Straightening with slight reversal of normal cervical lordosis. No significant spondylolisthesis. Multilevel chronic degenerative endplate height loss with multilevel mixed Modic type I and II degenerative endplate changes. The cervical spinal cord is normal in signal. C2-C3: No significant spinal canal or neural foraminal stenosis. C3-C4: Disc osteophyte complex indents the ventral thecal sac with mild spinal canal stenosis. Uncovertebral spurring with mild narrowing of the neural foramen. C4-C5: Disc osteophyte complex indents the ventral thecal sac with iteq-zj-jxasvnlg canal stenosis. Uncovertebral and facet arthropathy with sdey-vx-milvbczg narrowing of the neural foramen. C5-C6: Eccentric right disc osteophyte complex with moderate canal stenosis and asymmetric narrowing of the right ventral thecal sac. There is severe right and moderate left neural foraminal stenosis. C6-C7: Disc osteophyte complex with jvte-xx-bgiyavqt spinal canal stenosis. Uncovertebral and facet arthropathy with virenluv-zo-sllito narrowing of the bilateral neural foramen. C7-T1: Disc osteophyte complex without significant spinal canal stenosis. Uncovertebral and facet arthropathy with severe left and moderate right neural foraminal stenosis. MR/MR cervical spine wo con IMPRESSION: Multilevel degenerative changes of the cervical spine with up to moderate spinal canal stenosis at C5-C6. Multilevel severe neural foraminal stenoses as described above.
== END 2023-12-17 19:06 | disposition home or self-care (01) ==
LOC: HO.MRI 19:05
PROVIDERS: PCP Registered Nurse; Visit Provider Orthopaedic Surgery
DX: M54.2 Cervicalgia (principal)
CPT/HCPCS: 72141

== ENCOUNTER 2024-01-01 13:00 | Outpatient (AMB) | payer MEDICAID, SELFPAY ==
[2024-01-01 13:08] VITALS: BMI 32.9
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
== END 2024-01-01 13:37 | disposition home or self-care (01) ==
PROVIDERS: PCP Registered Nurse; Visit Provider Orthopaedic Surgery
DX: M48.02 Spinal stenosis, cervical region (principal)
CPT/HCPCS: 99213

== ENCOUNTER → 2024-01-01 13:00 | Outpatient (BNVA) | payer MEDICAID, SELFPAY | PROVIDERS: PCP Registered Nurse; Visit Provider Orthopaedic Surgery | DX: M48.02 Spinal stenosis, cervical region (principal) | CPT/HCPCS: 99212 ==

== ENCOUNTER 2024-01-10 12:41 | Outpatient (AMB) | payer MEDICAID, SELFPAY ==
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
== END 2024-01-10 13:27 | disposition home or self-care (01) ==
PROVIDERS: PCP Registered Nurse; Referring Provider Orthopaedic Surgery; Visit Provider Physician Assistant
DX: M48.02 Spinal stenosis, cervical region (principal)
CPT/HCPCS: 99204

== ENCOUNTER → 2024-01-10 12:41 | Outpatient (BNVA) | payer MEDICAID, SELFPAY | PROVIDERS: PCP Registered Nurse; Visit Provider Physician Assistant | DX: M48.02 Spinal stenosis, cervical region (principal) | CPT/HCPCS: 99212 ==

== ENCOUNTER 2024-01-22 08:34 | Outpatient (REF) | payer MEDICAID, SELFPAY ==
--- NOTE | ~2024-01-22 | CT_ITS ---
EXAMINATION: CT CERVICAL SPINE WITHOUT CONTRAST CLINICAL INFORMATION: Cervical spinal stenosis. COMPARISON: Cervical spine MRI from 12/17/2023. TECHNIQUE: Multidetector helical imaging of the cervical spine was obtained without intravenous contrast. Multiple axial reformats and coronal/sagittal reconstructions were created the technologist workstation for review. This CT examination was performed using dose optimization techniques as appropriate, variously including the following: *Automated exposure control. *Adjustment of mA and/or kV according to patient size (this includes techniques or standardized protocols for targeted exams where dose is matched to indication/reason for exam; i.e. extremities or head). *Use of iterative reconstruction technique. DLP: 500 mGy-cm FINDINGS: The atlantooccipital and atlantoaxial articulations remain well aligned. Mild reversal the normal cervical lordosis centered on C4. Otherwise, there is anatomic alignment of the vertebral bodies and posterior elements. No evidence of acute fracture or subluxation. The vertebral body heights are maintained. Advanced degenerative disc disease from C4-T1. Moderate degenerative disc disease from C2-C4. There is no prevertebral soft tissue swelling. The thyroid gland and remaining cervical soft tissues are within normal limits. The lung apices demonstrate no abnormalities. SPINAL LEVELS: C2-C3: Mild disc-osteophyte complex. There is mild right and no left uncovertebral joint arthropathy. There is no facet joint arthropathy. There is no neural foraminal stenosis. There is no demonstrated spinal canal stenosis. C3-C4: Moderate disc-osteophyte complex. There is moderate right and mild left uncovertebral joint arthropathy. There is mild bilateral facet joint arthropathy. There is mild right and no left neural foraminal stenosis. There appears to be minimal narrowing of the spinal canal. C4-C5: Moderate disc-osteophyte complex. There is moderate bilateral uncovertebral joint arthropathy. There is mild to moderate bilateral facet joint arthropathy. There is moderate right worse than left neural foraminal stenosis. There appears to be mild spinal canal stenosis. C5-C6: Moderate disc-osteophyte complex. There is severe right and moderate to severe left uncovertebral joint arthropathy. There is mild to moderate bilateral facet joint arthropathy. There is severe right and moderate left neural foraminal stenosis. There appears to mild to moderate spinal canal stenosis. C6-C7: Mild disc-osteophyte complex. There is moderate to severe bilateral uncovertebral joint arthropathy. There is moderate bilateral facet joint arthropathy. There is severe left worse than right neural foraminal stenosis. There appears to be minimal narrowing of the spinal canal. C7-T1: Mild disc-osteophyte complex. There is severe left and moderate right uncovertebral joint arthropathy. There is moderate bilateral facet joint arthropathy. There is severe left and moderate right neural foraminal stenosis. There is no demonstrated spinal canal stenosis. CT/CT cervical spine wo IV con IMPRESSION: 1. No evidence of acute fracture or traumatic subluxation of the cervical spine. 2. 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 Most notably on this limited exam without intrathecal contrast, there appears to be mild to moderate spinal canal stenoses from C4-C7. Moderate to severe neural foraminal stenoses from C4-T1.
== END 2024-01-22 08:35 | disposition home or self-care (01) ==
LOC: HO.CT 08:34
PROVIDERS: PCP Registered Nurse; Visit Provider Physician Assistant
DX: M48.02 Spinal stenosis, cervical region (principal)
CPT/HCPCS: 72125

== ENCOUNTER 2024-02-08 11:32 | Outpatient (AMB) | payer MEDICAID, SELFPAY ==
--- NOTE | 2024-02-08 11:49 | A.SPINEOV_ITS ---
Intake Visit Reasons: Discuss CT Intake Note: Mr. Abrams is here today to Discuss CT/C Clinical Documentation Nurse Required: Yes Clinical Documentation Nurse Name: Tablet Allergies peanut [PEANUT] Allergy (Mild, Verified 02/08/24 11:50) HIVES penicillin V Allergy (Unknown, Verified 02/08/24 11:50) rash Penicillins Allergy (Unknown, Verified 02/08/24 11:50) HIVES FRUIT Allergy (Severe, Uncoded 09/11/23 15:03) ANAPHYLAXIS Assessment & Plan Assessment & Plan (1) Cervical stenosis of spinal canal: Code(s): M48.02 - Spinal stenosis, cervical region Category: Medical Plan Mr Jose Alberto Frey is following up in the office today. We had discussed his neck pain issues he has been having for years. He has been through numerous rounds of conservative treatment he had multilevel degenerative disc disease and it looked like things were particularly bad at C5-6. I obtained a CT scan because I was suspicious he may have auto fuse this area already. He reports that he still continues to have the neck pain on and off. He takes gabapentin help with it. He can not take anti-inflammatories because of the fact that he is on Eliquis for history of pulmonary emboli. The CT scan done at [facility] was reviewed again with the MRI with the help with the clipper and turner and this shows multilevel degenerative disc disease throughout the whole cervical spine. There is not 1 particular area seen on the CT which is worse than another with the exception of C5-6 on the right where there is a large disc osteophyte compressing the right C6 nerve root. He does have a component of arm pain but really the neck pain is the reason he is here. 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 We talked about the fact that radiculopathy can be a symptom of degenerative disc disease and if his arm pain gets significantly worse that I think C5-6 could be a target. He is going to monitor things and continue taking his gabapentin and let us know if things change down the road. Total amount of time spent in this visit was 20 minutes in discussion of symptoms, cervical CT and MRI imaging results and subsequent plan of care Abrahan Aguilar MD,PhD [facility]
== END 2024-02-08 12:48 | disposition home or self-care (01) ==
PROVIDERS: PCP Registered Nurse; Visit Provider Physician Assistant
DX: M48.02 Spinal stenosis, cervical region (principal)
CPT/HCPCS: 99213

== ENCOUNTER → 2024-02-08 11:32 | Outpatient (BNVA) | payer MEDICAID, SELFPAY | PROVIDERS: PCP Registered Nurse; Visit Provider Physician Assistant | DX: M48.02 Spinal stenosis, cervical region (principal) | CPT/HCPCS: 99212 ==

== ENCOUNTER 2024-02-18 08:04 | Outpatient (AMB) | payer MEDICAID, SELFPAY ==
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
[2024-02-18 08:42] VITALS: BP 115/60; PULSE 66; O2SAT 97; BMI 37.4
== END 2024-02-18 09:05 | disposition home or self-care (01) ==
PROVIDERS: PCP Nurse Practitioner Family; Visit Provider Nurse Practitioner Family
DX: Z86.69 Personal history of other diseases of the nervous system and sense organs (principal); R06.83 Snoring; R40.0 Somnolence
CPT/HCPCS: 99203

== ENCOUNTER → 2024-02-18 08:04 | Outpatient (BNVA) | payer MEDICAID, SELFPAY | PROVIDERS: PCP Nurse Practitioner Family; Visit Provider Nurse Practitioner Family | DX: R40.0 Somnolence (principal); R06.83 Snoring; Z86.69 Personal history of other diseases of the nervous system and sense organs | CPT/HCPCS: 99212 ==

== ENCOUNTER 2024-03-20 13:14 | Outpatient (AMB) | payer MEDICAID, SELFPAY ==
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
[2024-03-20 13:25] VITALS: BP 116/72; PULSE 75; O2SAT 97; BMI 32.9
== END 2024-03-20 14:28 | disposition home or self-care (01) ==
PROVIDERS: PCP Registered Nurse; Visit Provider Nurse Practitioner Family
DX: Z12.11 Encounter for screening for malignant neoplasm of colon (principal); K92.1 Melena; K62.5 Hemorrhage of anus and rectum; Z01.818 Encounter for other preprocedural examination
CPT/HCPCS: 99203

== ENCOUNTER → 2024-03-20 13:14 | Outpatient (BNVA) | payer MEDICAID, SELFPAY | PROVIDERS: PCP Registered Nurse; Visit Provider Nurse Practitioner Family | DX: K92.1 Melena (principal); Z12.11 Encounter for screening for malignant neoplasm of colon | CPT/HCPCS: 99202; 99212 ==

== ENCOUNTER 2024-04-10 19:39 | Emergency (ER) | payer MEDICAID, SELFPAY ==
[2024-04-10 19:47] VITALS: BP 131/73; PULSE 84; RESP 18; TEMP 37.1; O2SAT 98; BMI 36.6
--- NOTE | 2024-04-10 19:57 | ECG_ITS ---
Test Reason : DIZZINESS Blood Pressure : / mmHG Vent. Rate : 073 BPM Atrial Rate : 073 BPM P-R Int : 176 ms QRS Dur : 092 ms QT Int : 392 ms P-R-T Axes : 035 011 015 degrees QTc Int : 431 ms Normal sinus rhythm Normal ECG When compared with ECG of 03-JUN-2023 11:38, No significant change was found Referred By: Generic ED Physician Electronically Signed By:Sebastian Cabrera
[2024-04-10 20:25] LABS: MANUAL DIFF FLAG NO
[2024-04-10 20:26] LABS: Basophils Percent Auto 0.3 % (0-2); Eosinophils Absolute Auto 0.1 X10*3/uL (0.0-0.4); Eosinophils Percent Auto 1.3 % (0-4); Hemoglobin 12.3 g/dl (14.0-18.0); Imm Gran Abs Auto 0.02 X10*3/uL (0.00-0.03); Imm Gran Pct Auto 0.2 % (0.0-0.4); Lymphocytes Absolute Auto 3.1 X10*3/uL (1.2-4.9); Lymphocytes Percent Auto 28.8 % (20-40); Mean Corpuscular HGB Conc 33.2 g/dl (31.0-36.0); Mean Corpuscular Hemoglobin 26.1 pg (27.0-33.0); Mean Corpuscular Volume 78.6 fL (80.0-98.0); Mean Platelet Volume 11.1 fL (9.4-12.4); Monocytes Absolute Auto 0.8 X10*3/uL (0.1-1.2); Monocytes Percent Auto 7.9 % (2-11); Neutrophils Absolute Auto 6.6 x10*3/uL (2.0-8.3); Neutrophils Percent Auto 61.5 % (45-73); Platelet Count 232 X10*3/uL (160-400); Red Blood Count 4.71 X10*6/uL (4.60-5.80); White Blood Count 10.7 X10*3/uL (4.8-10.8)
[2024-04-10 20:37] LABS: Anion Gap 12 (12-20); Blood Urea Nitrogen 12 mg/dL (9-16); Calcium 9.7 mg/dL (8.4-10.2); Carbon Dioxide 27 mmol/L (22-29); Chloride 105 mmol/L (96-108); Creatinine Clr Calc Pharmacy 77.5; Estimated Glomerular Filt Rate > 60; Glucose Random 122 mg/dL (60-115); Potassium 3.3 mmol/L (3.3-5.1); Sodium 141 mmol/L (135-145)
[2024-04-10 22:28] VITALS: BP 112/71; PULSE 71; RESP 20; TEMP 36.6; O2SAT 99
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
[2024-04-10] MEDS: oxyCODONE HCl Immed Release 5 MG TABLET 10 MG PO (23:41)
[2024-04-11 00:30] VITALS: BP 120/64; PULSE 72; RESP 18; TEMP 36.8; O2SAT 99
[2024-04-11 00:36] VITALS: BP 120/64; PULSE 72; RESP 18; TEMP 36.8; O2SAT 99
== END 2024-04-10 23:44 | disposition home or self-care (01) ==
PROVIDERS: Emergency Provider Internal Medicine; PCP Nurse Practitioner Family
DX: M47.812 Spondylosis without myelopathy or radiculopathy, cervical region (principal); R42 Dizziness and giddiness
CPT/HCPCS: 36415; 80048; 85025; 93005; 99283; 99285

== ENCOUNTER → 2024-04-10 19:57 | Outpatient (BNV) | payer MEDICAID, SELFPAY | PROVIDERS: Emergency Provider Internal Medicine; PCP Nurse Practitioner Family; Visit Provider Internal Medicine Cardiovascular Disease | DX: R42 Dizziness and giddiness (principal) | CPT/HCPCS: 93010 ==

== ENCOUNTER 2024-04-14 10:31 | Outpatient (AMB) | payer MEDICAID, SELFPAY ==
--- NOTE | 2024-04-14 10:47 | A.SPINEOV_ITS ---
Intake Visit Reasons: Neck Pain Intake Note: Mr. Jose Alberto Frey is here today c/o severe neck pain. Nuclear Officer Required: Yes Nuclear Officer Name: Tablet Allergies peanut [PEANUT] Allergy (Mild, Verified 04/10/24 19:49) HIVES penicillin V Allergy (Unknown, Verified 04/10/24 19:49) rash Penicillins Allergy (Unknown, Verified 04/10/24 19:49) HIVES FRUIT Allergy (Severe, Uncoded 09/11/23 15:03) ANAPHYLAXIS Assessment & Plan Assessment & Plan (1) Cervicalgia: Code(s): M54.2 - Cervicalgia Category: Medical Plan Reynaldo is a pleasant 54-year-old male who comes in today with a chief complaint of continued neck pain. He reports being started on gabapentin in the past for pain control, and feels this was effective at controlling his pain during the day. Unfortunately he continues to have nocturnal symptoms, and is now stating that he is having some reactions with the medication. It seems that Sandra De Jesus, a nurse practioner has been prescribing this for him. He was encouraged to follow up with her regarding the reactions to this medication. In addition to this, we discussed the previous conversation he had had with MERT Mott in our clinic. His complaint continues to be neck pain which is intermittently well controlled with medication. He denies any new radicular symptoms, and reports no numbness/tingling/weakness. MRI completed in November of this year shows moderate C5-6 right-sided foraminal stenosis due to osteophyte growth over this area. CT scan cervical spine shows diffuse spondylosis, and notable uncovertebral joint arthropathy from C5-7 largely due to the degenerative disc disease seen these levels. As MERT Mott had previously recommended I encouraged him to see conservative treatments for his neck pain as there is not an obvious surgical site that we could target which would relieve this pain. He has no signfiicant R sided radiculopathy so targeting C5-6 would likely not provide the desired results. His pain is likely due to the degeneration in his cervical spine as a result of years of wear and tear on his body. During clinic today we were working with our colleagues in pain management, therefore I was able to have the patient scheduled to see Dr. Pérez next week on Sunday04/23/24 to discuss pain c ontrol options/conservative interventions. The patient understands and agrees to this. Logan Aguilar MD,PhD [facility] Coding Level of Care Code Est Pt Level 3 (83494) Diagnoses Cervicalgia M54.2
== END 2024-04-14 11:50 | disposition home or self-care (01) ==
PROVIDERS: PCP Nurse Practitioner Family; Visit Provider Physician Assistant
DX: M54.2 Cervicalgia (principal)
CPT/HCPCS: 99213

== ENCOUNTER → 2024-04-14 10:31 | Outpatient (BNVA) | payer MEDICAID, SELFPAY | PROVIDERS: PCP Nurse Practitioner Family; Visit Provider Physician Assistant | DX: M48.02 Spinal stenosis, cervical region (principal); M47.812 Spondylosis without myelopathy or radiculopathy, cervical region; M50.320 Other cervical disc degeneration, mid-cervical region, unspecified level | CPT/HCPCS: 99212 ==

== ENCOUNTER 2024-04-23 08:53 | Outpatient (AMB) | payer MEDICAID, SELFPAY ==
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
[2024-04-23 09:08] VITALS: BP 126/60; PULSE 76; RESP 14; O2SAT 98; BMI 36.6
== END 2024-04-23 09:24 | disposition home or self-care (01) ==
PROVIDERS: PCP Nurse Practitioner Family; Referring Provider Nurse Practitioner Family; Visit Provider Internal Medicine
DX: M79.2 Neuralgia and neuritis, unspecified (principal)
CPT/HCPCS: 99204

== ENCOUNTER → 2024-04-23 08:53 | Outpatient (BNVA) | payer MEDICAID, SELFPAY | PROVIDERS: PCP Nurse Practitioner Family; Visit Provider Internal Medicine | DX: M79.2 Neuralgia and neuritis, unspecified (principal) | CPT/HCPCS: 99202 ==

== ENCOUNTER 2024-05-01 10:27 | Outpatient (AMB) | payer MEDICAID, SELFPAY ==
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
== END 2024-05-01 10:41 | disposition home or self-care (01) ==
PROVIDERS: PCP Registered Nurse; Visit Provider Orthopaedic Surgery
DX: M25.511 Pain in right shoulder (principal); M25.512 Pain in left shoulder
CPT/HCPCS: 99213

== ENCOUNTER → 2024-05-01 10:27 | Outpatient (BNVA) | payer MEDICAID, SELFPAY | PROVIDERS: PCP Registered Nurse; Visit Provider Orthopaedic Surgery | DX: M25.511 Pain in right shoulder (principal); M25.512 Pain in left shoulder | CPT/HCPCS: 99212 ==

== ENCOUNTER 2024-05-29 06:09 | Outpatient (REF) | payer MEDICAID, SELFPAY ==
--- NOTE | ~2024-05-29 | FL_ITS ---
EXAMINATION: XR FLUOROSCOPY WITH IMAGES CLINICAL INFORMATION: Neuralgia and neuritis, unspecified COMPARISON: MR cervical 12/17/2023. CT cervical 01/22/2024. TECHNIQUE: Fluoroscopy provided to: Dr. Pérez Fluoroscopy time: 0.3 minutes DAP: [id number] mGycm2 Images: 3 FINDINGS: PA and lateral coned-down images of the cervical spine during neurostimulator placement. Refer to full operative report for details. FL/FL guidance in treatment room IMPRESSION: Fluoroscopic guidance. Please refer to the full operative report for details. Electronically signed by: Esequiel Harris MD 07/25/2024 03:22 PM EDT
== END 2024-05-29 06:10 | disposition home or self-care (01) ==
LOC: CF 06:09
PROVIDERS: Visit Provider Internal Medicine
DX: M79.2 Neuralgia and neuritis, unspecified (principal); M54.2 Cervicalgia
CPT/HCPCS: 64555; C1778

== ENCOUNTER 2024-05-29 07:52 | Outpatient (AMB) | payer MEDICAID, SELFPAY ==
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
[2024-05-29 10:01] VITALS: BP 124/68; RESP 17; O2SAT 99
[2024-05-29 10:02] VITALS: BP 140/71; PULSE 66; RESP 18; O2SAT 98
== END 2024-05-29 09:49 | disposition home or self-care (01) ==
LOC: HO.PMCPRC 07:52
PROVIDERS: PCP Registered Nurse; Visit Provider Internal Medicine
DX: M54.2 Cervicalgia (principal); M79.2 Neuralgia and neuritis, unspecified
CPT/HCPCS: 64555

== ENCOUNTER 2024-06-06 08:56 | Outpatient (AMB) | payer MEDICAID, SELFPAY ==
[2024-06-06 09:06] VITALS: BP 131/63; PULSE 71; RESP 14; O2SAT 98; BMI 36.6
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
== END 2024-06-06 09:33 | disposition home or self-care (01) ==
PROVIDERS: PCP Registered Nurse; Visit Provider Internal Medicine
DX: M79.2 Neuralgia and neuritis, unspecified (principal); M54.2 Cervicalgia
CPT/HCPCS: 99024

== ENCOUNTER → 2024-06-06 08:56 | Outpatient (BNVA) | payer MEDICAID, SELFPAY | PROVIDERS: PCP Registered Nurse; Visit Provider Internal Medicine | DX: M79.2 Neuralgia and neuritis, unspecified (principal); M54.2 Cervicalgia; Z96.82 Presence of neurostimulator | CPT/HCPCS: 99212 ==

== ENCOUNTER → 2024-06-10 12:50 | Outpatient (BNVA) | payer MEDICAID, SELFPAY | PROVIDERS: PCP Registered Nurse; Visit Provider Internal Medicine ==

== ENCOUNTER 2024-07-28 08:44 | Outpatient (REF) | payer MEDICAID, SELFPAY ==
--- NOTE | ~2024-07-28 | XR_ITS ---
EXAMINATION: XR LUMBAR SPINE XR BILATERAL HANDS XR BILATERAL KNEES CLINICAL INFORMATION: Atraumatic pain across lower lumbar area, bilateral hand joint pain in the joint pain, right-sided back pain. COMPARISON: None available. TECHNIQUE: 4 views right knee, 4 views left knee, 3 views lumbar spine, 3 views of each hand. RIGHT KNEE: No significant joint effusion.. Small calcifications seen along the medial aspect of the patellofemoral joint on the sunrise view, possibly representing loose bodies. Minimal narrowing of the medial compartment. LEFT KNEE: Small joint effusion. Mild narrowing of the medial compartment. Tiny medial marginal and patellar osteophytes. LUMBAR SPINE: Minimal levoscoliosis of the lumbar spine. Facet arthritis lower lumbar spine. Moderate multilevel lumbar spondylosis with loss of disc space height at L5-S1 grade 1 anterolisthesis of L5 on S1. RIGHT HAND: Bone mineralization is normal. Minimal degenerative changes IP joints. Ulnar minus variance. Minimal narrowing of the radiocarpal space. Mild degenerative changes in the first carpometacarpal joint with joint space narrowing and hypertrophic change. LEFT HAND: Ulnar minus variance. Minimal narrowing of the radiocarpal space. Mild degenerative changes in the first carpometacarpal joint with joint space and hypertrophic change. Minimal degenerative changes are seen in MCP and IP joints, particularly notable in the second metacarpophalangeal joint as well as the fourth digit PIP and DIP joints. There is deformity of the left fourth digit distal tuft, possibly related to trauma of indeterminate age. Tiny ossific/ossific densities in the soft tissues adjacent to the fourth digit distal tuft. Correlation with the clinical exam and history is recommended to determine further management. XR/XR knee RT 4V IMPRESSION: 1. Mild degenerative changes in the bilateral knees. 2. Moderate multilevel lumbar spondylosis with loss of disc space height at L5-S1 grade 1 anterolisthesis of L5 on S1. 3. Mild degenerative changes bilateral first carpometacarpal joints. 4. Deformity of the left fourth digit distal tuft, possibly related to trauma of indeterminate age. Tiny ossific/ossific densities in the soft tissues adjacent to the fourth digit distal tuft. Correlation with the clinical exam and history is recommended to determine further management. Electronically signed by: Tiff Crabtree MD 08/13/2024 08:26 AM EDT
--- NOTE | ~2024-07-28 | XR_ITS ---
EXAMINATION: XR LUMBAR SPINE XR BILATERAL HANDS XR BILATERAL KNEES CLINICAL INFORMATION: Atraumatic pain across lower lumbar area, bilateral hand joint pain in the joint pain, right-sided back pain. COMPARISON: None available. TECHNIQUE: 4 views right knee, 4 views left knee, 3 views lumbar spine, 3 views of each hand. RIGHT KNEE: No significant joint effusion.. Small calcifications seen along the medial aspect of the patellofemoral joint on the sunrise view, possibly representing loose bodies. Minimal narrowing of the medial compartment. LEFT KNEE: Small joint effusion. Mild narrowing of the medial compartment. Tiny medial marginal and patellar osteophytes. LUMBAR SPINE: Minimal levoscoliosis of the lumbar spine. Facet arthritis lower lumbar spine. Moderate multilevel lumbar spondylosis with loss of disc space height at L5-S1 grade 1 anterolisthesis of L5 on S1. RIGHT HAND: Bone mineralization is normal. Minimal degenerative changes IP joints. Ulnar minus variance. Minimal narrowing of the radiocarpal space. Mild degenerative changes in the first carpometacarpal joint with joint space narrowing and hypertrophic change. LEFT HAND: Ulnar minus variance. Minimal narrowing of the radiocarpal space. Mild degenerative changes in the first carpometacarpal joint with joint space and hypertrophic change. Minimal degenerative changes are seen in MCP and IP joints, particularly notable in the second metacarpophalangeal joint as well as the fourth digit PIP and DIP joints. There is deformity of the left fourth digit distal tuft, possibly related to trauma of indeterminate age. Tiny ossific/ossific densities in the soft tissues adjacent to the fourth digit distal tuft. Correlation with the clinical exam and history is recommended to determine further management. XR/XR hand RT min 3V IMPRESSION: 1. Mild degenerative changes in the bilateral knees. 2. Moderate multilevel lumbar spondylosis with loss of disc space height at L5-S1 grade 1 anterolisthesis of L5 on S1. 3. Mild degenerative changes bilateral first carpometacarpal joints. 4. Deformity of the left fourth digit distal tuft, possibly related to trauma of indeterminate age. Tiny ossific/ossific densities in the soft tissues adjacent to the fourth digit distal tuft. Correlation with the clinical exam and history is recommended to determine further management. Electronically signed by: Tiff Crabtree MD 08/13/2024 08:26 AM EDT
== END 2024-07-28 08:45 | disposition home or self-care (01) ==
LOC: HO.XRAY 08:44
PROVIDERS: PCP Family Medicine; Visit Provider Family Medicine
DX: M25.50 Pain in unspecified joint (principal)
CPT/HCPCS: 73130; 73564

== ENCOUNTER 2024-07-28 10:13 | Outpatient (REF) | payer MEDICAID, SELFPAY ==
[2024-07-28 11:32] LABS: Hemoglobin 11.8 g/dl (14.0-18.0); Mean Corpuscular HGB Conc 31.9 g/dl (31.0-36.0); Mean Corpuscular Hemoglobin 25.8 pg (27.0-33.0); Mean Corpuscular Volume 80.8 fL (80.0-98.0); Mean Platelet Volume 11.3 fL (9.4-12.4); Platelet Count 240 X10*3/uL (160-400); Red Blood Count 4.58 X10*6/uL (4.60-5.80); Red Cell Distribution Width 15.2 % (11.0-16.0); White Blood Count 6.1 X10*3/uL (4.8-10.8)
[2024-07-28 11:50] LABS: Estimated Average Glucose 134 mg/dL; Hemoglobin A1C 135.6093 umol/L; Hemoglobin A1c % 6.3 % (<6.0); Total Hemoglobin (HGBA1C) 2972.7879 umol/L
[2024-07-28 11:51] LABS: Alanine Aminotransferase 28 U/L (0-40); Albumin Level 4.3 g/dL (3.5-5.0); Alkaline Phosphatase 100 U/L (39-117); Anion Gap 12 (12-20); Aspartate Amino Transferase 19 U/L (5-37); Bilirubin Direct 0.2 mg/dL (0.0-0.5); Bilirubin Total 0.4 mg/dL (0.0-1.0); Blood Urea Nitrogen 10 mg/dL (9-16); Calcium 9.8 mg/dL (8.4-10.2); Carbon Dioxide 29 mmol/L (22-29); Chloride 105 mmol/L (96-108); Cholesterol 127 mg/dL (<200); Estimated Glomerular Filt Rate > 60; Glucose Random 115 mg/dL (60-115); HDL Cholesterol 37 mg/dL (>40); Iron 54 mcg/dL (45-160); LDL Cholesterol Calculated 67 mg/dL (<100); Percent Iron Saturation 20 % (15-50); Sodium 142 mmol/L (135-145); Total Iron Binding Capacity 270 mcg/dL (228-428); Total Protein 7.5 g/dL (6.5-8.0); Triglycerides 116 mg/dL (<150); Unsaturated Iron Binding 216 ug/dL
[2024-07-28 11:54] LABS: Creatinine Urine 102.76 mg/dL; Microalbumin Urine < 5.0 mg/L
[2024-07-28 12:08] LABS: Hepatitis A Antibody IgG REACTIVE (Nonreactive); ~Hepatitis A Antibody IgG 11.72 S/CO (0.00-0.99)
[2024-07-28 12:13] LABS: HBS Num1 4.98 mIU/mL (0-7.99); HBsAGNum1 0.36 S/CO (0.00-0.99); HIV AB/AG Nonreactive (Nonreactive); HIV Num 1 0.07 S/CO (0.00-0.99); Hepatitis B Core Antibody Nonreactive (Nonreactive); Hepatitis B Surface Antigen Negative (Negative); ~HepC Num1 0.13 S/CO (0.00-0.79); ~Hepatitis B Surface Antibody NONREACTIVE (Nonreactive); ~Hepatitis C Antibody Nonreactive (Nonreactive)
[2024-07-28 12:15] LABS: Ferritin 108 ng/mL (20-250); Free T4 (Free Thyroxine) 0.78 ng/dL (0.71-1.85); Thyroid Stimulating Hormone 0.89 uIU/mL (0.32-4.0); Vitamin D 25-OH Total 43.3 ng/mL (>30)
[2024-07-28 12:28] LABS: Rheumatoid Factor < 13.0 IU/mL (<15.0)
[2024-07-28 12:32] LABS: Folate 9.3 ng/mL (> or = 4.0); Vitamin B12 463 pg/mL (200-900)
[2024-07-29 13:33] LABS: RPR Rapid Plasma Reagin NON-REACTIVE (NON-REACTIVE)
[2024-07-29 19:33] LABS: Lyme Abs Screen <0.90 index
[2024-07-30 11:14] LABS: Anti Nuclear Antibody Screen NEGATIVE (NEGATIVE)
== END 2024-07-28 10:14 | disposition home or self-care (01) ==
LOC: HO.HHCL 10:13
PROVIDERS: Visit Provider Family Medicine
DX: Z00.00 Encounter for general adult medical examination without abnormal findings (principal); I10 Essential (primary) hypertension; E78.49 Other hyperlipidemia; R73.03 Prediabetes; F33.9 Major depressive disorder, recurrent, unspecified; G40.909 Epilepsy, unspecified, not intractable, without status epilepticus; D68.9 Coagulation defect, unspecified; M25.50 Pain in unspecified joint; R10.9 Unspecified abdominal pain; G89.29 Other chronic pain; G47.33 Obstructive sleep apnea (adult) (pediatric); Z68.36 Body mass index [BMI] 36.0-36.9, adult
CPT/HCPCS: 36415; 80048; 80061; 80076; 82043; 82306; 82570; 82607; 82728; 82746; 83036; 83540; 84439; 84443; 85027; 86038; 86431; 86592; 86617; 86618; 86704; 86706; 86708; 86803; 87340; 87389

== ENCOUNTER → 2024-07-29 15:52 | Outpatient (REF) | payer MEDICAID, SELFPAY | LOC: HO.SL 15:52 | PROVIDERS: PCP Family Medicine; Visit Provider Family Medicine | DX: G47.33 Obstructive sleep apnea (adult) (pediatric) (principal); Z86.69 Personal history of other diseases of the nervous system and sense organs; R06.83 Snoring; R40.0 Somnolence | CPT/HCPCS: 95806 ==

== ENCOUNTER → 2024-07-29 16:06 | Outpatient (BNV) | payer MEDICAID, SELFPAY | PROVIDERS: PCP Family Medicine; Visit Provider Internal Medicine | DX: G47.33 Obstructive sleep apnea (adult) (pediatric) (principal) | CPT/HCPCS: 95806 ==

== ENCOUNTER 2024-08-08 08:57 | Outpatient (REF) | payer MEDICAID, SELFPAY ==
--- NOTE | ~2024-08-08 | XR_ITS ---
EXAMINATION: XR LUMBAR SPINE XR BILATERAL HANDS XR BILATERAL KNEES CLINICAL INFORMATION: Atraumatic pain across lower lumbar area, bilateral hand joint pain in the joint pain, right-sided back pain. COMPARISON: None available. TECHNIQUE: 4 views right knee, 4 views left knee, 3 views lumbar spine, 3 views of each hand. RIGHT KNEE: No significant joint effusion.. Small calcifications seen along the medial aspect of the patellofemoral joint on the sunrise view, possibly representing loose bodies. Minimal narrowing of the medial compartment. LEFT KNEE: Small joint effusion. Mild narrowing of the medial compartment. Tiny medial marginal and patellar osteophytes. LUMBAR SPINE: Minimal levoscoliosis of the lumbar spine. Facet arthritis lower lumbar spine. Moderate multilevel lumbar spondylosis with loss of disc space height at L5-S1 grade 1 anterolisthesis of L5 on S1. RIGHT HAND: Bone mineralization is normal. Minimal degenerative changes IP joints. Ulnar minus variance. Minimal narrowing of the radiocarpal space. Mild degenerative changes in the first carpometacarpal joint with joint space narrowing and hypertrophic change. LEFT HAND: Ulnar minus variance. Minimal narrowing of the radiocarpal space. Mild degenerative changes in the first carpometacarpal joint with joint space and hypertrophic change. Minimal degenerative changes are seen in MCP and IP joints, particularly notable in the second metacarpophalangeal joint as well as the fourth digit PIP and DIP joints. There is deformity of the left fourth digit distal tuft, possibly related to trauma of indeterminate age. Tiny ossific/ossific densities in the soft tissues adjacent to the fourth digit distal tuft. Correlation with the clinical exam and history is recommended to determine further management. XR/XR lumbar spine 2-3V IMPRESSION: 1. Mild degenerative changes in the bilateral knees. 2. Moderate multilevel lumbar spondylosis with loss of disc space height at L5-S1 grade 1 anterolisthesis of L5 on S1. 3. Mild degenerative changes bilateral first carpometacarpal joints. 4. Deformity of the left fourth digit distal tuft, possibly related to trauma of indeterminate age. Tiny ossific/ossific densities in the soft tissues adjacent to the fourth digit distal tuft. Correlation with the clinical exam and history is recommended to determine further management. Electronically signed by: Tiff Crabtree MD 08/13/2024 08:26 AM EDT
== END 2024-08-08 08:58 | disposition home or self-care (01) ==
LOC: HO.XRAY 08:57
PROVIDERS: PCP General Practice; Visit Provider Emergency Medicine
DX: M54.50 Low back pain, unspecified (principal)
CPT/HCPCS: 72100

== ENCOUNTER 2024-09-01 11:09 | Outpatient (AMB) | payer MEDICAID, SELFPAY ==
[2024-09-01 11:34] VITALS: BP 126/80; PULSE 76; RESP 15; O2SAT 97; BMI 36.6
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
== END 2024-09-01 12:22 | disposition home or self-care (01) ==
PROVIDERS: PCP General Practice; Visit Provider Internal Medicine
DX: M48.02 Spinal stenosis, cervical region (principal); M54.2 Cervicalgia
CPT/HCPCS: 99213

== ENCOUNTER → 2024-09-01 11:09 | Outpatient (BNVA) | payer MEDICAID, SELFPAY | PROVIDERS: PCP General Practice; Visit Provider Internal Medicine | DX: M54.50 Low back pain, unspecified (principal); M48.02 Spinal stenosis, cervical region | CPT/HCPCS: 99212 ==

== ENCOUNTER 2024-10-14 11:03 | Outpatient (AMB) | payer MEDICAID, SELFPAY ==
[2024-10-14 11:09] VITALS: BMI 36.6
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
== END 2024-10-14 11:35 | disposition home or self-care (01) ==
PROVIDERS: PCP General Practice; Visit Provider Orthopaedic Surgery
DX: M54.50 Low back pain, unspecified (principal); M79.604 Pain in right leg; M79.605 Pain in left leg
CPT/HCPCS: 99213

== ENCOUNTER → 2024-10-14 11:03 | Outpatient (BNVA) | payer MEDICAID, SELFPAY | PROVIDERS: PCP General Practice; Visit Provider Orthopaedic Surgery | DX: M54.50 Low back pain, unspecified (principal); M79.604 Pain in right leg; M79.605 Pain in left leg | CPT/HCPCS: 99212 ==

== ENCOUNTER → 2024-10-17 18:48 | Outpatient (BNV) | payer MEDICAID, SELFPAY | PROVIDERS: PCP Family Medicine; Visit Provider Radiology Diagnostic Radiology | DX: M47.896 Other spondylosis, lumbar region (principal); M99.63 Osseous and subluxation stenosis of intervertebral foramina of lumbar region | CPT/HCPCS: 72148 ==

== ENCOUNTER 2024-10-17 18:51 | Outpatient (REF) | payer MEDICAID, SELFPAY | END 2024-10-17 18:52 | disposition home or self-care (01) | LOC: HO.MRI 18:51 | PROVIDERS: PCP Family Medicine; Visit Provider Orthopaedic Surgery | DX: M54.50 Low back pain, unspecified (principal); M79.604 Pain in right leg; M79.605 Pain in left leg | CPT/HCPCS: 72148 ==

== ENCOUNTER 2024-11-12 10:37 | Outpatient (AMB) | payer MEDICAID, SELFPAY ==
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
[2024-11-12 10:43] VITALS: BMI 36.6
--- OUTSIDE RECORDS SUMMARY | 2024-11-12 11:50 | XMS_ITS ---
Author Organization [facility] Address [address] [place] [address] Care Team Providers Care Flame Gouger Name Role Phone Fátima Bridges N.P Primary Care Provider Unavail Raphael Heath Jr Unavailable REASON FOR VISIT Pt no show Encounters Encounter Location Date Provider Diagnosis [facility] [address] [place] [address] 07/21/2024 Raphael Powell Jr PLAN OF TREATMENT Next Appt Details Provider Name:Raphael yi Jr, 05/13/2025 10:40:00 AM, [address], [address], [place], [address],
--- OUTSIDE RECORDS SUMMARY | 2024-11-12 11:50 | XMS_ITS ---
Author Organization [facility] Address [address] [place] [address] Care Team Providers Care Judicial Administrative Assistant Name Role Phone Fátima Bridges N.P Primary Care Provider Unavail able Raphael Powell Jr Unavailable [phone] ALLERGIES Allergen (clinical drug ingredient) Drug/Non Drug Allergy documented on EMR Reaction Allergy Type Onset Date Status Penicillin Unknown Drug Allergy Active REASON FOR VISIT Patient presents today for diverticulitis MEDICATIONS Medication SIG (Take, Route, Frequency, Duration) Notes Start Date End Date Status Eliquis 5 MG 1 tablet Orally Twice a day for 30 day(s) Active Fenofibrate 54 MG 1 tablet with food Orally Once a day Active Fish Oil 1000 MG 1 capsule Orally Once a day Active Atorvastatin Calcium 40 MG 1 tablet Oral ly Once a day Active cloNIDine HCl 0.2 MG 1 tablet Orally Once a day Active traMADol HCl 50 MG TAKE 1 TABLET BY MOUTH EVERY 6 HOURS NEEDED FOR SEVERE PAIN Oral for 8 M5090,Unavail able Active Losartan Potassium 50 MG 1 tablet Orally Once a day Active Meloxicam 7.5 MG 1 tablet Orally Once a day Active MiraLax (colon prep) 17 GM/SCOOP mixed with Gatorade or Crystal Light Orally begin at 5:00 p.m. the day before the procedure for 1 day 11/22/2022 Active Omeprazole 20 MG 1 capsule 1/2 to 1 hour before morning meal Orally Once a day for 30 day(s) 11/12/2024 Active QUEtiapine Fumarate 100 MG 1 tablet Oral ly Once a day Active Sertraline HCl 100 MG 1 tablet Orally Once a day Active hydroCHLOROthiazide 12.5 MG 1 capsule in the morning Orally Once a day Active OXcarbazepine 300 MG 1 tablet Orally Twice a day Active SOCIAL HISTORY Tobacco Use: Social History Observation Description Date Details (start date - stop date) Never Smoker NA - NA Sex Assigned At : Social History Observation Description Sex Assigned At Unknown Tobacco Use/Smoking Question Answer Notes Patient is a nonsmoker Alcohol Screen Question Answer Notes Did you have a drink containing alcohol in the p ast year? No Points 0 Interpretation Negative VITAL SIGNS BMI 37.29 kg/m2 11/12/2024 Blood pressure systolic 000 mm Hg 11/12/19 25 Blood pressure diastolic 00 mm Hg 025 Height 65 in 11/12/2024 Temperature 98.7 degrees Fahrenheit 11/12/19 25 Weight 224 lb 2 oz lbs 11/12/2024 Encounters Encounter Location Date Provider Diagnosis [facility] [address] [place] [address] 11/12/2024 Raphael Powell Jr Generalized abdominal pain R10.84 ASSESSMENTS Encounter Date Diagnosis Assessment Notes Treatment Notes Treatment Clinical Notes 11/12/2024 Generalized abdominal pain (ICD-10 - R10.84) PLAN OF TREATMENT Medication Medication Name Sig Start Date Stop Date Notes Omeprazole 20 MG 1 capsule 1/2 to 1 h our before morning meal Orally Once a day for 30 day(s) 11/12/2024 Pending Test Test Name Order Date BUN 11/12/2024 CREATININE 11/12/2024 LIVER PROFILE 11/12/2024 LIPASE 11/12/2024 CBC w/o DIFF 11/12/2024 CT ABD & PELVIS WITH CONTRAST 11/12/2024 Next Appt Details Provider Name:Raphael yi Jr, 05/13/2025 10:40:00 AM, [address], [address], [place], [address],
--- OUTSIDE RECORDS SUMMARY | 2024-11-12 11:51 | XMS_ITS ---
Author Organization [facility] Address [address] [place] [address] Care Team Providers Care Counter Installer Name Role Phone Fátima Bridges N.P Primary Care Provider Unavail lety Powell Jr, Raphael Unavailable [phone] REASON FOR VISIT Patient presents today for diverticulitis Encounters Encounter Location Date Provider Diagnosis [facility] [address] [place] [address] 07/21/2024 Raphael Powell Jr PLAN OF TREATMENT Next Appt Details Provider Name:Raphael yi Jr, 05/13/2025 10:40:00 AM, [address], [address], [place], [address],
--- OUTSIDE RECORDS SUMMARY | 2024-11-12 11:51 | XMS_ITS | Encounter Summary ---
Author Organization [employer] Address [address] [place] [address] Care Team Providers Care Anesthesiologist Attending Name Role Phone Milana Mata DO Primary Care Provider + [phone] Reason for Visit * Reason Comments Med Refill Encounter Details Date Type Department Care Team ([facility] st Contact Info) Description 11/11/2024 Refill [facility] [address] [place], [place] [id number] Milana Mtaa DO [address] [place] [address] Cervical neck pain with evidence of disc disease Social History Tobacco Use Types Packs/Day Years Used Date Smoking Tobacco: Never Passive Smoke Exposure: Never Smokeless Tobacco: Never Alcohol Use Standard Drinks/Week Comments Not Currently 0 (1 standard drink = 0.6 oz pur e alcohol) Depression Answer Date Recorded Patient Health Questionnaire-9 Score 8 11/15/2023 Patient Health Questionnaire-9 Score 8 11/15/2023 Last PHQ-9: Questionnaire Data Not on file 0 11/15/2023 Housing Stability Answer Date Recorded What is your housing situation today? I have [facility] [place] 04/18/[address] you li ve. Do you have problems with any of the following? None of the above 04/18/2024 Food Insecurity Answer Date Recorded Within the past 12 months, y ou worried that your food would run out before you got money to buy more: Never True 04/18/2024 Within the past 12 months,th e food you bought just didn't last and you didn't have enough money to get more: Never True Transportation Answer Date Recorded In the past 12 months, has l ack of transportation kept you from medical appts, meetings, work or from getting things needed for daily living? No 04/25/2024 Utilities Answer Date Recorded In the past 12 months, has t he electric, gas, oil or water company threatened to shut off services in your home? No 04/25/2024 Depression Answer Date Recorded Patient Health Questionnaire-2 Score 2 11/15/2023 Internet Access Answer Date Recorded Internet Access Q1 Yes 06/23/2024 Internet Access Q2 Not on file 06/23/2024 Sex and Gender Information Value Date Recorded Sex Assigned at Male 08/21/2022 10:16 AM EDT Legal Sex Male 10:16 AM EDT Gender Identity Male 08/21/2022 10:16 AM EDT Sexual Orientation Choose not to disclose 2021 10:16 AM EDT documented as of this encounter Plan of Treatment Not on file documented as of this encounter Visit Diagnoses Diagnosis Cervical neck pain with evidence of disc disease Other and unspecified disc disorder of cervical region documented in this encounter Additional Health Concerns Assessment Noted Time PHQ-9 Depression Total Score: 8 11/15/19 9:20 AM EST documented as of this encounter Care Teams Anesthesiologist Attending Relationship Specialty Start Date End Date Milana Mata DO [address] [place] [id number] PCP - General Family Medicine 07/02/24 documented as of this encounter
--- OUTSIDE RECORDS SUMMARY | 2024-11-12 11:51 | XMS_ITS | Encounter Summary ---
Author Organization [employer] Address [address] [place] [address] Care Team Providers Care Blood Donor Recruiter Supervisor Name Role Phone Sandra DeJ esus Primary Care Provider + Jimi, Daniel العراقي Primary Care Provider [phone] Milana Mata DO Primary Care Provider + Reason for Visit * Reason Comments Med Refill Encounter Details Date Type Department Care Team ([facility] st Contact Info) Description 08/01/2023 Refill [facility] [address] [place] [address] Ryan Nation MD [address] [place] [address] Social History Tobacco Use Types Packs/Day Years Used Date Smoking Tobacco: Never Passive Smoke Exposure: Never Smokeless Tobacco: Never Alcohol Use Standard Drinks/Week Comments Never 0 (1 standard drink = 0.6 oz pur e alcohol) Depression Answer Date Recorded Patient Health Questionnaire-9 Score 12 03/02/2023 Housing Stability Answer Date Recorded What is your housing situation today? I have [facility] 07/30/[address] you li ve. Do you have problems with any of the following? None of the above 07/30/2023 Food Insecurity Answer Date Recorded Within the past 12 months, y ou worried that your food would run out before you got money to buy more: Never True 07/30/2023 Within the past 12 months,th e food you bought just didn't last and you didn't have enough money to get more: Never True 06/2023 Transportation Answer Date Recorded In the past 12 months, has l ack of transportation kept you from medical appts, meetings, work or from getting things needed for daily living? No 07/30/2023 Utilities Answer Date Recorded In the past 12 months, has t he electric, gas, oil or water company threatened to shut off services in your home? No 07/30/2023 Depression Answer Date Recorded Patient Health Questionnaire-2 Score 2 03/02/2023 Sex and Gender Information Value Date Recorded Sex Assigned at Male 08/21/2022 10:16 AM EDT Legal Sex Male 10:16 AM EDT Gender Identity Male 08/21/2022 10:16 AM EDT Sexual Orientation Choose not to disclose 2021 10:16 AM EDT documented as of this encounter Miscellaneous Notes * Telephone Encounter - Sandra De Jesus CNP - 08/01/2023 4:20 PM EDT On eliquis, should take tylenol vs nsaids documented in this encounter Plan of Treatment Not on file documented as of this encounter Visit Diagnoses Not on filedocumented in this encounter Additional Health Concerns Assessment Noted Time PHQ-9 Depression Total Score: 12 023 2:23 PM EDT documented as of this encounter Care Teams Blood Donor Recruiter Supervisor Relationship Specialty Start Date End Date Sandra De Jesus FNP [address] [place] [address] PCP - General Family Medicine 07/06/23 06/23/24 Daniel Krause MD [address] [place] [address] PCP - General Internal Medicine 06/24/24 07/01/24 Milana Mata DO [address] [place] [id number] PCP - General Family Medicine 07/02/24 documented as of this encounter
--- OUTSIDE RECORDS SUMMARY | 2024-11-12 11:51 | XMS_ITS | Encounter Summary ---
Author Organization [employer] Address [address] [facility] [address] [place] [address] Care Team Providers Care Sweeper Operator Highways Name Role Phone Sandra De Jesus Primary Care Provider [phone] Name, Daniel العراقي Primary Care Provider [phone] Milana Mata DO Primary Care Provider + [phone] Encounter Details Date Type Department Care Team (Late st Contact Info) Description 02/05/2024 Telephone [facility] MEDICINE [address] [place] [address] Sandra De Jesus FNP [address] [place] [address] Social History Tobacco Use Types Packs/Day Years [...] your housing situation today? I have [place] alsotn 08/21/[address] you li ve. Do you have problems with any of the following? None of the above 08/21/2023 Food Insecurity Answer Date Recorded Within the past 12 months, y ou worried that your food would run out before you got money to buy more: Never True 08/21/2023 Within the past 12 months,th e food you bought just didn't last and you didn't have enough money to get more: Never True Transportation Answer Date Recorded In the past 12 months, has l ack of transportation kept you from medical appts, meetings, work or from getting things needed for daily living? No 08/21/2023 Utilities Answer Date Recorded In the past 12 months, has t he electric, gas, oil or water company threatened to shut off services in your home? No 08/21/2023 Depression Answer Date Recorded Patient Health Questionnaire-2 Score 2 11/15/2023 Sex and Gender Information Value Date Recorded [...] documented as of this encounter Care Teams Sweeper Operator Highways Relationship Specialty Start Date End Date Sandra De Jesus FNP [address] [place] [address] PCP - General Family Medicine 07/06/23 06/23/24 Daniel Krause MD [address] [place] [address] PCP - General Internal Medicine 06/24/24 07/01/24 Milana Mata DO [address] [place] [address] PCP - General Family Medicine 07/02/24 documented as of this encounter
--- OUTSIDE RECORDS SUMMARY | 2024-11-12 11:51 | XMS_ITS | Encounter Summary ---
Author Organization [employer] Address [address] [facility] 7t [place] [address] Care Team Providers Care Applied Technologist Name Role Phone Sandra De Jesus Primary Care Provider [phone] Name, Daniel العراقي Primary Care Provider [phone] Milana Mata DO Primary Care Provider + [phone] Reason for Visit * Reason Onset Date Comments ER Follow-up 04/14/2024 Encounter Details Date Type Department Care Team ([facility] st Contact Info) Description 04/14/2024 Telephone [facility] MEDICINE [address] [place], [place] [phone] Sandra De Jesus FNP [address] [place], [place] [phone] ER Follow-up Social History Tobacco Use Types Packs/Day Years [...] encounter Miscellaneous Notes * Telephone Encounter - Alexys Orozco RN - 04/14/2024 2:04 PM EDT T/C to pt. For below message. Pt. Schedule for ED follow up on 04/18. CHARMAINE english is in pt.'s chart.Pt. Also advised to go to nearest ED in case of any new or worsening symptoms. [facility] hours are reviewed. * Telephone Encounter - Humberto Arauz - 04/14/2024 1:06 PM EDT Patient calling to report ED visit on : Date: 04/10/24 Hospital: [facility] Seen for: reaction to medication (gabapentin (Neurontin) 100 MG capsule ) - body aches, headaches. Patient advised will forward to team nurse for follow up. Please contact at [phone] Hungarian documented in this encounter Plan of Treatment Not on file documented as of this encounter Visit Diagnoses Not on filedocumented in this encounter Additional Health Concerns Assessment Noted Time PHQ-9 Depression Total Score: 8 11/15/19 24 9:20 AM EST documented as of this encounter Care Teams Applied Technologist Relationship Specialty Start Date End Date Sandra De Jesus FNP [address] [place] [address] PCP - General Family Medicine 07/06/23 06/23/24 Name, MD Daniel [address] [place] [address] PCP - General Internal Medicine 06/24/24 07/01/24 Milana Mata DO [address] [place] [address] PCP - General Family Medicine 07/02/24 documented as of this encounter
--- OUTSIDE RECORDS SUMMARY | 2024-11-12 11:51 | XMS_ITS | Encounter Summary ---
Author Organization [employer] Address [address] [facility] [address] [facility] [address] [place] [address] Care Team Providers Care Meat Lugger Name Role Phone Sandra De Jesus Primary Care Provider + Name, Daniel العراقي Primary Care Provider [phone] Milana Mata DO Primary Care Provider [phone] Encounter Details Date Type Department Care Team (Late st Contact Info) Description 05/23/2024 Orders Only [facility] [address] [place] [address] Sandra De Jesus FNP [address] [place] [address] Cervical neck pain with evidence of disc disease (Primary Dx) Social History Tobacco Use Types Packs/Day Years [...] Cervical neck pain with evidence of disc disease- Primary Other and unspecified disc disorder of cervical region documented in this encounter Additional Health Concerns Assessment Noted Time PHQ-9 Depression Total Score: 8 11/15/19 9:20 AM EST documented as of this encounter Care Teams Meat Lugger Relationship Specialty Start Date End Date Sandra De Jesus FNP [address] [place] [address] PCP - General Family Medicine 07/06/23 06/23/24 [place] [address] PCP - General Internal Medicine 06/24/24 07/01/24 Milana Mata DO [address] [place] [address] PCP - General Family Medicine 07/02/24 documented as of this encounter
--- OUTSIDE RECORDS SUMMARY | 2024-11-12 11:51 | XMS_ITS | Encounter Summary ---
Author Organization [employer] Address [address] [facility] [address] [place] [address] Care Team Providers Care Fashion Buying Internship Name Role Phone Sandra De Jesus Primary Care Provider + Name, Daniel العراقي Primary Care Provider [phone] Milana Mata DO Primary Care Provider [phone] Reason for Visit * Reason Comments Med Refill Encounter Details Date Type Department Care Team ([facility] st Contact Info) Description 10/21/2023 Refill [facility] MEDICINE [address] [place], [place] [phone] Sandra De Jesus FNP [address] [place], [place] [phone] Social History Tobacco Use Types Packs/Day Years Used Date Smoking Tobacco: Never Passive Smoke Exposure: Never Smokeless Tobacco: Never Alcohol Use Standard Drinks/Week Comments Not Currently 0 (1 standard drink = 0.6 oz pur e alcohol) Depression Answer Date Recorded Patient Health Questionnaire-9 Score 12 03/02/2023 Housing Stability Answer Date Recorded What is your housing situation today? I have [place]ston 08/21/[address] you li [...] documented as of this encounter Care Teams Fashion Buying Internship Relationship Specialty Start Date End Date Sandra De Jesus FNP [address] [place] [address] PCP - General Family Medicine 07/06/23 06/23/24 Daniel Krause MD [address] [place] [address] PCP - General Internal Medicine 06/24/24 07/01/24 Milana Mata DO [address] [place] [address] PCP - General Family Medicine 07/02/24 documented as of this encounter
--- OUTSIDE RECORDS SUMMARY | 2024-11-12 11:51 | XMS_ITS | Encounter Summary ---
Author Organization [employer] Address [address] [facility] [address] [place] [address] Care Team Providers Care Planer Stone Name Role Phone AdolfoMilana Primary Care Provider [phone] Encounter Details Date Type Department Care Team ([facility] st Contact Info) Description 10/17/2024 Orders Only [place] [facility] External Provider, [facility] Social History Tobacco Use Types Packs/Day Years [...] on file documented as of this encounter Procedures Procedure Name Priority Date/Time Associated Diagnosis Comments MR LUMBAR SPINE WO CONTRAST Routine 10/17/2024 7:10 PM EST documented in this encounter Results * MR Lumbar Spine w/o Contrast (10/17/2024 7:10 PM EST) Anatomical Region Laterality Modality Spine, L-spine Magnetic Resonan ce 10/17/2024 7:10 PM EST Narrative 10/28/2024 3:13 PM EST ? [facility] ?[address] ?[place] [address] ? Magnetic Resonance Report ? Signed ? Patient: Reynaldo Osuna ?MR#: [id number] ?? [id number] ? : 1970 ?Acct:[id number] ? Age/Sex: 54 / M ?ADM Date: 10/17/24 ? Loc: HO.MRI ? Attending Dr: Vladimir Tao MD ? Ordering Physician: Vladimir Tao MD ?? Date of Service: 10/17/24 ?? Procedure(s): MR lumbar spine wo con ?? Accession Number(s): [id number] ? cc: Milana Mata DO; Vladimir aTo MD ? EXAMINATION: ?? MR LUMBAR SPINE WITHOUT CONTRAST ? CLINICAL INFORMATION: ?? Low back pain, unspecified. ? COMPARISON: ?? No prior MRI. ?? Correlated to x-ray dated August 08, 2024. ? TECHNIQUE: ?? MRI of the lumbar spine was obtained using routine sequences without ?? contrast. ? FINDINGS: ?? Submitted for interpretation on October 28, 2024. ? Last rib-bearing vertebra labeled T12. ?? No bone marrow STIR signal abnormality. ?? Multilevel disc desiccation, L1-2 to L5-S1. ?? Subtle grade 1 retrolisthesis L2-3 and L4-5. ?? Conus medullaris ends at pedicle of L1 with normal signal. ? T12-L1: ?? No disc herniation. No neuroforamina stenosis. ? L1-2: ?? No disc herniation. No neuroforamina stenosis. ? L2-3: ?? Broad-based disc bulging. Facet joint hypertrophy. Bilateral ?? neuroforamina narrowing on a degenerative basis. No central spinal ?? canal stenosis. ? L3-4: ?? Broad-based disc bulging. Bilateral facet joint hypertrophy. Bilateral ?? neuroforamina narrowing. No central spinal canal stenosis. ? L4-5: ?? Broad-based disc bulging. Facet joint and ligamentum flavum ?? hypertrophy. Bilateral neuroforamina stenosis encroaching the exiting ?? nerve roots. No gross central spinal canal stenosis. ? L5-S1: ?? Broad-based disc bulging. Bilateral neuroforamina stenosis left greater ?? than the right likely encroaching the left L5 and S1 nerve roots. Facet ?? joint hypertrophy bilaterally. ? No prevertebral compartment hematoma, mass or fluid collection. ?? Probable parapelvic cyst, left kidney. ? MR/MR lumbar spine wo con ?? IMPRESSION: ?? Multilevel lumbar spondylosis resulting in bilateral neuroforamina ?? stenosis L4-5 and L5-S1 encroaching the exiting nerve roots. ? Electronically signed by: ??Saurabh Dejesus MD ??10/28/2024 03:10 PM ?? EST RP ? Dictated By: ?Saurabh Pena MD ? Signed By: ?<Electronically signed by Saurabh Jiménez MD in OV> ? 10/28/24 1510 ? DD/ ? TD/TT: 10/17/24 1935 ? Ice Cream Freezer Assistant: ? Procedure Note Sheldon Sellers - 10/28/[address] [address] Magnetic Resonance Report Signed Patient: Patrick Osuna#: [id number] : 1970Acct:[id number] Age/Sex: 54 / MADM Date: 10/17/24 Loc: HO.MRI Attending Dr: Vladimir Tao MD Ordering Physician: Vladimir Tao MD Date of Service: 10/17/24 Procedure(s): MR lumbar spine wo con Accession Number(s): [id number] cc: Milana Mata DO; Vladimir Tao MD EXAMINATION: MR LUMBAR SPINE WITHOUT CONTRAST CLINICAL INFORMATION: Low back pain, unspecified. COMPARISON: No prior MRI. Correlated to x-ray dated August 08, 2024. TECHNIQUE: MRI of the lumbar spine was obtained using routine sequences without contrast. FINDINGS: Submitted for interpretation on October 28, 2024. Last rib-bearing vertebra labeled T12. No bone marrow STIR signal abnormality. Multilevel disc desiccation, L1-2 to L5-S1. Subtle grade 1 retrolisthesis L2-3 and L4-5. Conus medullaris ends at pedicle of L1 with normal signal. T12-L1: No disc herniation. No neuroforamina stenosis. L1-2: No disc herniation. No neuroforamina stenosis. L2-3: Broad-based disc bulging. Facet joint hypertrophy. Bilateral neuroforamina narrowing on a degenerative basis. No central spinal canal stenosis. L3-4: Broad-based disc bulging. Bilateral facet joint hypertrophy. Bilateral neuroforamina narrowing. No central spinal canal stenosis. L4-5: Broad-based disc bulging. Facet joint and ligamentum flavum hypertrophy. Bilateral neuroforamina stenosis encroaching the exiting nerve roots. No gross central spinal canal stenosis. L5-S1: Broad-based disc bulging. Bilateral neuroforamina stenosis left greater than the right likely encroaching the left L5 and S1 nerve roots. Facet joint hypertrophy bilaterally. No prevertebral compartment hematoma, mass or fluid collection. Probable parapelvic cyst, left kidney. MR/MR lumbar spine wo con IMPRESSION: Multilevel lumbar spondylosis resulting in bilateral neuroforamina stenosis L4-5 and L5-S1 encroaching the exiting nerve roots. Electronically signed by: Saurabh Dejesus MD 10/28/2024 03:10 PM EST RP Dictated By: Saurabh Pena MD Signed By: <Electronically signed by Saurabh Jiménez MDin OV> 10/28/24 1510 DD/ TD/TT: 10/17/241934 Ice Cream Freezer Assistant: [facility] External Provider IMG MRI PROCEDURES Final Result documented in this encounter Visit Diagnoses Not on filedocumented in this encounter Additional Health Concerns Assessment Noted Time PHQ-9 Depression Total Score: 8 11/15/19 24 9:20 AM EST documented as of this encounter Care Teams Planer Stone Relationship Specialty Start Date End Date Milana Mata DO [address] [place] [address] PCP - General Family Medicine 07/02/24 documented as of this encounter
--- OUTSIDE RECORDS SUMMARY | 2024-11-12 11:51 | XMS_ITS | Clinical Summary ---
Author Organization [employer] Address [address] [place] [address] Care Team Providers Care Cigarette Book Maker Name Role Phone AdolfoMilana Primary Care Provider Allergies Active Allergy Reactions Criticality Noted Date Comments [place]-Containing Products Anaphylaxis High 04/20/2023 Fruit Extracts 10/10/2023 Pt states he is allergic to any fruit that has seeds Penicillins Rash High 10/12/2010 Baxter Oil 08/21/2024 Medications cloNIDine (Catapres) 0.2 MG tablet Take 1 tablet by mouth. 07/27/20 15 Active OXcarbazepine (Trileptal) 300 MG tablet Take 1 tablet by mouth in the morning and at bedtime. 08/26/20 12 Active QUEtiapine (SEROquel) 50 MG tablet Take 1 tablet by mouth 1 (one) time each day. Active sertraline (Zoloft) 50 MG tablet Take 1 tablet by mouth in the morning. Active albuterol 108 (90 Base) MCG/ACT inhaler Inhale 2 puffs every 4 (four) hours if needed for shortness of breath or wheezing. 18 g 1 08/22/20 23 Active alfuzosin ER (Uroxatral) 10 MG 24 hr tablet Take 10 mg by mouth at bedtime. 09/11/20 23 Active EPINEPHrine (Epipen) 0.3 MG/0.3ML injection syringe Inject 0.3 mg into the shoulder, thigh, or buttocks. 2 each 1 10/09/20 23 Active amLODIPine (Norvasc) 5 MG tablet TAKE 1 TABLET BY MOUTH EVERY MORNING 90 tablet 5 12/11/19 24 Active hydrocortisone (Anusol-HC) 25 MG suppository Insert 25 mg into the rectum in the morning. 12/26/19 24 Active cholecalciferol (Vitamin D-3) 50 MCG (1999 UT) tabletIndications :Anxiety state TAKE 1 TABLET BY MOUTH EVERY MORNING 90 tablet 3 12/31/19 24 Active losartan-hydroCHL OROthiazide (Hyzaar) 100-25 MG tablet TAKE 1 TABLET BY MOUTH EVERY MORNING 90 tablet 3 12/31/19 24 Active gabapentin (Neurontin) 100 MG capsule Take 1 capsule (100 mg) by mouth every 8 (eight) hours. 90 capsule 11 01/02/20 24 2024 Active fluticasone (Flonase) 50 MCG/ACT nasal sprayIndications: Allergic rhinitis due to other allergic trigger, unspecified seasonality INSTILL 2 SPRAYS IN EACH NOSTRIL ONCE DAILY NEEDED 48 g 1 04/01/20 24 Active omeprazole (PriLOSEC) [address] capsuleIndication s:Gastroesophagea l reflux disease, unspecified whether esophagitis present Take 1 capsule (20 mg) by mouth before breakfast and before evening meal. 180 capsule 3 07/24/20 24 2024 Active polycarbophil (FiberCon) 625 MG tablet Take 1 tablet (625 mg) by mouth 2 times daily. 180 tablet 3 07/24/20 24 2024 Active Saccharomyces boulardii (probiotic) 250 MG capsule Take 1 capsule (250 mg) by mouth Once per day. 90 capsule 3 07/24/20 24 2024 Active baclofen (Lioresal) 10 MG tablet Take 1 tablet (10 mg) by mouth 2 times daily. 60 tablet 08/11/20 24 Active rosuvastatin (Crestor) 40 MG tabletIndications :Hyperlipidemia, unspecified hyperlipidemia type TAKE 1 TABLET BY MOUTH AT BEDTIME 90 tablet 09/05/20 24 Active cetirizine (ZyrTEC) 10 MG tabletIndications :Allergic rhinitis, unspecified seasonality, unspecified trigger TAKE 1 TABLET BY MOUTH ONCE DAILY 90 tablet 1 09/24/20 24 Active apixaban (Eliquis) 5 MG tablet TAKE 1 TABLET BY MOUTH TWICE DAILY IN THE MORNING AND IN THE EVENING 60 tablet 5 09/25/20 24 Active traMADol (Ultram) 50 MG tabletIndications :Cervical neck pain with evidence of disc disease Take 1 tablet (50 mg) by mouth every 6 (six) hours if needed for severe pain for up to 7 days. 28 tablet 11/11/19 25 2024 Active traMADol (Ultram) 50 MG tabletIndications :Cervical neck pain with evidence of disc disease TAKE 1 TABLET BY MOUTH EVERY 6 HOURS NEEDED FOR SEVERE PAIN FOR UP TO 8 DAYS 30 tablet 10/07/20 24 2024 Discontinued(R eorder (will not trigger notification to Pharmacy)) Active Problems Problem Noted Date Diagnosed Date Acute bilateral low back pain without sciatica 1 Clotting disorder 07/24/2024 History of pulmonary embolism 07/24/2024 Degenerative disc disease, cervical 07/24/2024 Cervical spinal stenosis 07/24/2024 Chronic pain of both shoulders 07/24/2024 Erectile dysfunction 07/24/2024 Obstructive sleep apnea 07/24/2024 Chronic neck pain 04/18/2024 Assessment & Plan (04/18/2024 12:13 PM EDT): -reviewed results of CT from 02/08 as noted above with patient -considered neurosurgery referral however, he has already been seen by the team and is not a surgical candidate at this time -encouraged to meet with pain management as scheduled and -follow-up with neurosurgery afterwards -encouraged non-pharm interventions with ice, rest, gentle stretching and healthy diet -follow-up with PCP after conferring with both pain management and neurosurgery BMI 36.0-36.9,adult 04/19/2023 Anemia 03/01/2023 Assessment & Plan (03/02/2023 3:40 PM EDT): H&H trending upward over last 5 months. CBC ordered to monitor. Also doing an anemia workup to diagnose type. Ref Range & Units 5 mo ago WBC 4.00 - 11.00 K/uL 9.28 RBC 4.23 - 5.82 M/uL 4.07??Low?? HGB 13.4 - 17.5 g/dL 10.8??Low?? HCT 37.0 - 51.0 % 33.5??Low?? Ref Range & Units 2 wk ago WBC 4.00 - 11.00 K/uL 14.96??High?? RBC 4.23 - 5.82 M/uL 4.25 HGB 13.4 - 17.5 g/dL 11.1??Low?? HCT 37.0 - 51.0 % 34.5??Low?? S/P laparoscopic-assisted sigmoidectomy 02/21/20 Assessment & Plan (03/02/2023 2:45 PM EDT): Scars appear to be healing well. Patients pain is managed. Diverticulosis 02/13/2023 Benign prostatic hyperplasia 09/20/2022 Assessment & Plan (05/18/2023 1:50 PM EDT): Patient reports an increase in symptoms. PSA ordered Increasing tamsulosin from 0.4 mg daily to 0.8 mg daily. Patient to follow up in one months. Possibly start finasteride or referral to urology. Chronic gastroesophageal reflux disease 09/20/20 Overview (03/01/2023): Last Assessment & Plan: Asymptomatic. Osteoarthritis of foot joint 04/20/2022 Hyperlipidemia 11/03/2013 Overview (03/01/2023): Last Assessment & Plan: Continue rosuvastatin. Essential hypertension 07/29/2013 Overview (03/01/2023): Last Assessment & Plan: Hydrochlorothiazide on hold as patient is receiving IV fluids with only clear liquid intake. Blood pressures well controlled with losartan, clonidine and amlodipine. Assessment & Plan (04/20/2023 5:31 PM EDT): BP 110/86, home readings are acceptable, I will not change his medications today. He is to continue monitoring his BP Counseled low-salt diet, advised increase in exercise to 30 min/ day most days, weight loss if applicable. Call clinic for high BP >170/90 or low <90/60. Prediabetes 08/21/2012 Allergic rhinitis 10/22/1959 Anxiety 10/22/1959 Mild intermittent asthma 10/22/1959 Major depression, recurrent, chronic 10/22/1959 Seizure disorder 10/22/1959 Resolved Problems Problem Noted Date Diagnosed Date Resolved Date Routine adult health maintenance 04/20/2023 07/24/2024 Assessment & Plan (04/20/2023 5:25 PM EDT): PHQ: 12 Substance use: Denies ever using tobacco. Denies drug use. Social drinker Lipids: labs ordered Colonoscopy: 12/18/18, no mention of when to repeat, mild sigmoid diverticulosis, no polyps identified; but there was some liquid stool making it difficult to see if there were small polyps. 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 not wear glasses. Dental home: upcoming appointment next month at [facility]. Allergies 04/20/2023 07/24/2024 Assessment & Plan (04/20/2023 5:34 PM EDT): Patients listed allergy is penicillin. When I asked him today if he had any other allergies he reported multiple allergies including fruit and nuts, corn on the cob but not the corn (he can eat corn just no on the cob or he goes into anaphylaxis and needs to use his epipen). I felt it was prudent to send him to an building code administrator to get a comprehensive and accurate list of exactly what he is and is not allergic to. He reports having multiple non- epipens at home. Hospital discharge follow-up 03/02/2023 07/24/2024 Assessment & Plan (03/02/2023 2:45 PM EDT): Patient states that he woke up in perfuse sweets twice since the surgery. He checked his temperature and said it was normal but I believe this warrants a new cbc to RO infection. F/up with GI on the . Ed precautions advised. Abdominal pain 03/01/2023 07/24/2024 Assessment & Plan (05/18/2023 2:02 PM EDT): Patient had elective sigmoidectomy on 02/13/23, after recurrent bouts of diverticulitis. States feels better now since last visit. Denies abdominal symptoms today. Appears he is healing well. He had the abdominal/pelvis CT I ordered done yesterday but it has not been read yet. Has current referral to GI Assessment & Plan (04/30/2023 9:13 AM EDT): Patient states the abdominal pain is residual from his surgery. DDx: possible abscess or other post-surgical complication, with appendicitis possible but less likely. Ordered stat CT Gas bloat syndrome 03/01/2023 Assessment & Plan (03/02/2023 3:45 PM EDT): Simethicone (Gas-x) 80 mg for 5 days. His GI F/up is in 5 days. I told him to address the issue with GI during his F/up with them. Diverticulitis of large intestine 09/20/2022 07/24/2024 Diverticulitis of large inte winnie with abscess 09/20/2022 07/24/2024 Overview (03/01/2023): Last Assessment & Plan: Patient presented with abdominal pain of 3 weeks duration. History of 3 episodes of diverticulitis in the past. CT abdomen suggestive of sigmoid diverticulitis with 16mm the pericolonic phlegmon/developing abscess. No pneumoperitoneum. ?? Patient admitted on ceftriaxone and metronidazole day #3. Patient continues to be febrile with T-max of 38.1 overnight. Contacted surgery and patient seen by Dr. Pollock. Consult is appreciated. Some concern for development of phlegmon however patient has had interval improvement in his pain and resolution of his leukocytosis. - As per surgery will monitor overnight to see if patient is defervesces. If recurrent fevers may need repeat CT. -We will follow with surgery. -Continue ceftriaxone and metronidazole. -Continue clear liquid diet. - Continue gentle IV fluids and opiates for pain control. ?? Epilepsy 09/20/2022 07/24/2024 Overview (03/01/2023): Last Assessment & Plan: Seizure-free regimen of Trileptal. Calcaneal spur of both feet 04/20/2022 07/24/2024 Low back pain 05/14/2012 07/24/2024 Hypercoagulable state 10/22/19592023 Hypertriglyceridemia 10/22/1960 024 Encounters Date Type Department Care Team Description 11/11/2024 Refill [facility] [address] [place] [address] Milana Mata, Cervical neck pain with evidence of disc disease 11/11/2024 Refill [facility] [address] [place] [address] Milana Mata, Cervical neck pain with evidence of disc disease 10/17/2024 Orders Only [facility] External Provider, [facility] 10/06/2024 Refill [facility] [address] [place] [address] Milana Mata, Cervical neck pain with evidence of disc disease 09/26/2024 2:30 PM EST Office Visit [facility] [address] [place] [address] Jerry Steinberg DDEstela 09/25/2024 Refill [facility] [address] [place] [address] Sandra De Jesus FNP 09/24/2024 Refill [facility] [address] [place] [phone] Sandra De Jesus FNP Allergic rhinitis, unspecified seasonality, unspecified trigger 09/11/2024 Refill [facility] [address] [place] [address] Milana Mata DO Cervical neck pain with evidence of disc disease 09/05/2024 Refill [facility] [address] [place] [address] Name, MD Daniel Hyperlipidemia, unspecified hyperlipidemia type 09/04/2024 Refill [facility] [address] [place] [address] Sandra De Jesus FNP Allergic rhinitis due to other allergic trigger, unspecified seasonality 09/02/2024 Orders Only [facility] [address] [place] [phone] Milana Mata DO Chronic pain of both knees (Primary Dx); Pain in both hands 09/01/2024 Telephone [facility] [address] [place] [address] Norma Cleary, RN Results 08/21/2024 11:30 AM EDT Office Visit [facility] [address] [place] [address] Nora West, DDS Symptomatic periapical periodontitis (Primary Dx) 08/21/2024 Telephone [facility] [address] [place] [phone] Milana Mata DO Nurse Triage 08/18/2024 Refill [facility] [address] [place], [place] [phone] Milana Mata DO Cervical neck pain with evidence of disc disease 08/13/2024 Telephone [facility] [address], [place] [phone] Justyn Mondragon MD from Last 3 Months Immunizations Name Administration Dates Next Due Hep B, adult 12/05/2011,05/30/2011,01/17/2011 Influenza Injectable Quadriv alant Preservative Free IIV4 MDCK 09/29/2022 Influenza injectable quadriv alent preservative free 10/10/2023 Influenza, IIV3, injectable 09/05/2022, 8 Influenza, Split (incl. josue fied surface antigen) 07/29/2013 Influenza, seasonal, injecta ble, preservative free 07/24/2024 Moderna Covid-19 Vaccine 12+ 10/11/2021,02/03/20 21,01/02/2021 Pfizer Covid-19 Vaccine 12+ 07/24/2024 Pneumococcal Conjugate PCV 20 10/10/2023 Tdap 12/01/2022,09/09/2012,01/06/2011 Zoster, Recombinant 12/01/2022,09/29/2022 Family History Medical History Relation Name Comments Clotting disorder Brother Diabetes Brother Hypertension Brother Stroke Brother Clotting disorder Father Diabetes Father Heart disease Father Hypertension Father Stroke Father Throat cancer Father Arthritis Mother Diabetes Mother Hypertension Mother Colon cancer Mother's Brother Colon cancer Mother's Sister Breast cancer Sister Clotting disorder Sister Relation Name Status Comments Brother Father Mother Alive Mother's Brother Mother's Sister Sister Social History Tobacco Use Types Packs/Day Years Used Date Smoking Tobacco: Never Passive Smoke Exposure: Never Smokeless Tobacco: Never Tobacco Cessation:Counseling Given: Not Answered Alcohol Use Standard Drinks/Week Comments Not Currently [...] not to disclose 2021 10:16 AM EDT Last Filed Vital Signs Vital Sign Reading Time Taken Comments Blood Pressure 124/84 08/11/2024 1:15 PM EDT Pulse 112 08/11/2024 1:15 PM EDT Temperature 36.8 ??C (98.3 ??F) 08/11/2024 1:15 PM ED T Respiratory Rate 20 08/11/2024 1:15 PM EDT Oxygen Saturation 97% 08/11/2024 1:15 PM EDT Inhaled Oxygen Concentration - - Weight 100 kg (221 lb) 08/11/2024 1:15 PM EDT Height 165.1 cm (5' 5 ) 08/11/2024 1:15 PM EDT Body Mass Index 36.78 08/11/2024 1:15 PM EDT Plan of Treatment Health Maintenance Due Date Last Done Comments CT Colonography 1969 Dental Oral Exam 1969 Dental Prophylaxis 1969 Dental X-Ray: Full Mouth 1969 FIT DNA/Cologuard 1969 Sigmoidoscopy 1969 Alcohol/Substance Use Screening 1981 Depression Screening 11/15/2024 11/15/2023, 11/15/19 24 FIT 11/15/2024 11/15/2023 FOBT 11/15/2024 11/15/2023 SDOH Screening 04/25/2025 04/25/2024 Diabetes: Hemoglobin A1C 07/28/2025 024, 04/18/2024, 04/20/2023, Additional history exists Dental X-Ray: Bitewings 08/22/2025 08/21/2024 Tobacco Screening 09/26/2025 09/26/2024 Colonoscopy 04/19/2028 04/19/2023 Colorectal Cancer Screening 04/19/2028 Lipid Panel 07/28/2029 07/28/2024, 03/24, 08/30/2022, Additional history exists DTaP/Tdap/Td Vaccines (4 - Td or Tdap) 12/01/2032 12/01/2022, 09/09/2012, 01/06/2011 RSV Patients and Patients Aged 60 years or older (1 - 1-dose 75+ series) 02/05/2044 Hepatitis B Vaccines Completed 12/05/2011, 05/30/2011, 01/17/2011 Zoster Vaccines Completed 12/01/2022, 09/29/2022 Pneumococcal Vaccine: Pediatrics (0 to 5 Years) and At-Risk Patients (6 to 64 Years) Completed 10/10/2023 COVID-19 Vaccine Completed 07/24/2024, , 02/02/2021, Additional history exists Influenza Vaccine Completed 07/24/2024, , 09/29/2022, Additional history exists HIV Screening Completed 07/28/2024, 09/20/2021 Hepatitis C Screening Completed 07/28/2024, 023 HIB Vaccines Aged Out No longer eligi ble based on patient's age to complete this topic HPV Vaccines Aged Out No longer eligi ble based on patient's age to complete this topic Hepatitis A Vaccines Aged Out No long er eligible based on patient's age to complete this topic IPV Vaccines Aged Out No longer eligi ble based on patient's age to complete this topic Meningococcal Vaccine Aged Out No gareth elsa eligible based on patient's age to complete this topic RSV under 20 months Aged Out No longe r eligible based on patient's age to complete this topic Rotavirus Vaccines Aged Out No longer eligible based on patient's age to complete this topic Procedures Procedure Name Priority Date/Time Associated Diagnosis Comments MR LUMBAR SPINE WO CONTRAST Routine 10/17/2024 7:10 PM EST NO CHARGE VISIT Routine 09/26/2024 2:30 PM EST ADJUNCTIVE GENERAL SERVICES - PROFESSIONAL VISITS - CASE PRESENTATION, SUBSEQUENT TO DETAILED AND EXTENSIVE TREATMENT PLANNING Routine 08/21/2024 11:30 AM EDT Symptomatic periapical periodontitis BITEWING - SINGLE RADIOGRAPHIC IMAGE Routine 08/21/2024 11:30 AM EDT Symptomatic periapical periodontitis INTRAORAL - PERIAPICAL IMAGE - CONVERSION Routine 08/21/2024 11:30 AM EDT Symptomatic periapical periodontitis ADJUNCTIVE GENERAL SERVICES - UNCLASSIFIED TREATMENT - PALLIATIVE TREATMENT OF DENTAL PAIN - PER VISIT Routine 08/21/2024 11:30 AM EDT Symptomatic periapical periodontitis 30 EXTRACTION Routine 08/21/2024 12:00 AM EDT HEPATITIS C AB W/REFL TO HCV RNA, QN, PCR Routine 07/28/2024 10:21 AM EDT Routine history and physical examination of adult Essential hypertension Other hyperlipidemia Prediabetes Major depression, recurrent, chronic (CMS/HCC) Seizure disorder (CMS/HCC) Clotting disorder (CMS/HCC) Polyarthralgia Chronic abdominal pain Obstructive sleep apnea BMI 36.0-36.9,adult Encounter for immunization HIV 1/2 ANTIGEN/ANTIBODY, FOURTH GENERATION W/RFL Routine 07/28/2024 10:21 AM EDT Routine history and physical examination of adult Essential hypertension Other hyperlipidemia Prediabetes Major depression, recurrent, chronic (CMS/HCC) Seizure disorder (CMS/HCC) Clotting disorder (CMS/HCC) Polyarthralgia Chronic abdominal pain Obstructive sleep apnea BMI 36.0-36.9,adult Encounter for immunization HEMOGLOBIN A1C Routine 07/28/2024 10:21 AM EDT Routine history and physical examination of adult Essential hypertension Other hyperlipidemia Prediabetes Major depression, recurrent, chronic (CMS/HCC) Seizure disorder (CMS/HCC) Clotting disorder (CMS/HCC) Polyarthralgia Chronic abdominal pain Obstructive sleep apnea BMI 36.0-36.9,adult Encounter for immunization LIPID PANEL, STANDARD Routine 07/28/2024 10:21 AM EDT Routine history and physical examination of adult Essential hypertension Other hyperlipidemia Prediabetes Major depression, recurrent, chronic (CMS/HCC) Seizure disorder (CMS/HCC) Clotting disorder (CMS/HCC) Polyarthralgia Chronic abdominal pain Obstructive sleep apnea BMI 36.0-36.9,adult Encounter for immunization FECAL GLOBIN BY IMMUNOCHEMISTRY Routine 11/15/2023 9:03 AM EST Dark stools HM COLONOSCOPY Routine 04/19/2023 2:32 PM EDT from Last 3 Months or Most Recently Relevant to Health Maintenance Results * MR Lumbar Spine w/o Contrast (10/17/2024 7:10 PM EST) Anatomical Region Laterality Modality Spine, L-spine Magnetic Resonan ce 10/17/2024 7:10 PM EST Narrative 10/28/2024 3:13 PM EST ? [facility] ?[address] ?[place] [address] ? Magnetic Resonance Report ? Signed ? Patient: Jose Alberto Frey,Reynaldo ?MR#: [id number] ?? [id number] ? : 1970 ?Acct:[id number] ? Age/Sex: 54 / M ?ADM Date: 10/17/24 ? Loc: HO.MRI ? Attending Dr: Vladimir Tao MD ? Ordering Physician: Vladimir Tao MD ?? Date of Service: 10/17/24 ?? Procedure(s): MR lumbar spine wo con ?? Accession Number(s): [id number] ? cc: Milana Mata DO; Vladimir Tao MD ? EXAMINATION: ?? MR LUMBAR SPINE [...] by Saurabh Jiménez MD in OV> ? 10/28/240 ? DD/ 1910 ? TD/TT: 10/17/24 193 ? 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 Procedure Note Verito, Image - 10/28/2024 [place] [id number] Magnetic Resonance Report Signed Patient: Patrick Osuna#: [id number] : 1970Acct:[id number] Age/Sex: 54 / MADM Date: 10/17/24 Loc: HO.MRI Attending Dr: Vladimir Tao MD Ordering Physician: Vladimir Tao MD Date of Service: 10/17/24 Procedure(s): MR lumbar spine wo con Accession Number(s): [id number] cc: Milana Mata DO; Vladimir Tao MD [...] by: Saurabh Dejesus MD 10/28/2024 03:10 PM [facility] Dictated By: Saurabh Pena MD Signed By: <Electronically signed by Saurabh Jiménez MDin OV> 10/28/24 1510 DD/ 1910 TD/TT: 10/17/24 193 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 Blood Venous blood specimen / Unknown 07/28/2024 10:21 AM EDT 07/28/2024 11:15 AM EDT Milana Mata DO LAB BLOOD ORDERABLES Final R esult [facility] [address] [place] [phone] * HIV-1/2 Antigen and Antibodies, Fourth Generation, with Reflexes (07/28/2024 10:21 AM EDT) HIV AB/AG Nonreactive Nonreactive [facility] Comment:HIV-1 p24 Ag and/or HIV-1/HIV-2 Ab not detected.A test result that is nonreactive does not exclude thepossibility of exposure to or infection with HIV-1 and/orHIV-2. Nonreactive results in this assay for individualswith prior exposure to HIV-1 and/or HIV-2 may be due toantigen and antibody levels that are below the limit ofdetection of this assay.The [employer] HIV Ag/Ab Combo assay result andsupplemental assay results should be interpreted inconjunction with the patient's clinical presentation,history and other laboratory results. If the results areinconsistent with clinical evidence, additional testing issuggested to confirm the result. Blood Venous blood specimen / Unknown 07/28/2024 10:21 AM EDT 07/28/2024 11:15 AM EDT us Milana Mata DO LAB BLOOD ORDERABLES Final R esult [facility] [address] [place] [phone] * (ABNORMAL) Hemoglobin A1c (07/28/2024 10:21 AM EDT) Hemoglobin A1c 6.3(H) <6.0 % [facility] Comment:Hemoglobin A1C Refer ence Range Adults: 4.8 - 6.0 % Non diabetic: < 6.0 % Goal: < 7.0 %Additional Action Suggested: > 8.0 %Note: Hemoglobin A1c results are invalid for patients with abnormal amounts of HbF. Blood transfusions may impact the HbA1c concentration in the patient sample. Estimated Average Glucose 134 mg/dL [facility] Comment:eAG = Estimated ave rage glucose which is %A1C expressed asaverage glucose, using the formula of the J5F-NufvgebVutjisn Glucose study (ADAG), Diabetes Care, Vol.31,#8,May. 2007 Blood Venous blood specimen / Unknown 07/28/2024 10:21 AM EDT 07/28/2024 11:15 AM EDT Milana Mata DO LAB BLOOD ORDERABLES Final R esult Performing Organization Address [facility] Co de Phone Number [facility] [address] [place] [phone] * (ABNORMAL) Lipid Panel, Standard (07/28/2024 10:21 AM EDT) Triglycerides 116 <150 mg/dL [facility] Comment:Desirable Triglyceri de: less than 150 mg/dLBorderline High Triglyceride 150-199 mg/dLHigh Triglyceride: 200-499 mg/dLVery High Triglyceride: greater than or equal to 5OO mg/dL Cholesterol 127 <200 mg/dL [facility] Comment:Desirable Cholestero l: less than 200 mg/dLBorderline High Cholesterol: 200-239 mg/dLHigh Cholesterol: greater than 239 mg/dL LDL Cholesterol Calculated 67 <100 mg/dL [facility] Comment:Desirable LDL: less than 100 mg/dLNear Optimal/Above Optimal LDL: 110- 129 mg/dLBorderline High LDL: 130-159 mg/dLHigh LDL: 160-189 mg/dLVery High LDL: greater than or equal to 190 mg/dL HDL Cholesterol 37(L) >40 mg/dL [facility] Comment:Desirable HDL: great er than 40 mg/dL Note: This HDL assay may give artificially low results in patients with liver disease. Blood Venous blood specimen / Unknown 07/28/2024 10:21 AM EDT 07/28/2024 10:55 AM EDT Milana Mata DO LAB BLOOD ORDERABLES Final R esult Performing Organization Address City/[facility]/ZIP Co de Phone Number [facility] [address] [place] [address] [phone] * (ABNORMAL) Fecal Globin by Immunochemistry (11/15/2023 9:03 AM EST) Fecal Globin By Immunochemistry SEE NOTE(A) [facility] Comment:FECAL GLOBIN BY IMMU NOCHEMISTRY Micro Number: [id number] Test Status: Final Specimen Source: Not given Specimen Quality: Adequate Fecal Globin: DetectedTHIS TEST WAS PERFORMED AT:[facility] [place] [id number] VILLALPANDO MD Stool Rectal contents / Unknown 11/15/2023 9:03 AM EST 11/15/2023 12:27 PM EST Fátima Bridges HOME HEALTH BILLING SPECIALIST LAB BODY FLUIDS AND STOOLS ORD ERABLES Final Result [facility] [address] [place] [address] [phone] * Colonoscopy (04/19/2023 2:32 PM EDT) Colonoscopy Normal Normal Comment:Repeat in 5 years Historical Provider HEALTH MAINTENANCE Final Result from Last 3 Months or Most Recently Relevant to Health Maintenance Insurance [facility] STAND ADULT Care Teams Cigarette Book Maker Relationship Specialty Start Date End Date Milana Mata DO [address] [place] [id number] PCP - General Family Medicine 07/02/24
--- OUTSIDE RECORDS SUMMARY | 2024-11-12 11:51 | XMS_ITS | Encounter Summary ---
Author Organization [employer] Address [address] [facility] 7t [place] [address] Care Team Providers Care Farm Management Teacher Name Role Phone AdolfoMilana Primary Care Provider + [phone] Reason for Visit * Reason Comments Med Refill Encounter Details Date Type Department Care Team ([facility] st Contact Info) Description 09/04/2024 Refill [facility] [address] [place], [place] [phone] Sandra De Jesus FNP [address] [place] [address] Allergic rhinitis due to other allergic trigger, unspecified seasonality Social History Tobacco Use Types Packs/Day Years [...] as of this encounter Visit Diagnoses Diagnosis Allergic rhinitis due to other allergic trigger, unspecified seasonality documented in this encounter Additional Health Concerns Assessment Noted Time PHQ-9 Depression Total Score: 8 11/15/19 24 9:20 AM EST documented as of this encounter Care Teams Farm Management Teacher Relationship Specialty Start Date End Date Milana Mata DO [address] [place] [address] PCP - General Family Medicine 07/02/24 documented as of this encounter
--- OUTSIDE RECORDS SUMMARY | 2024-11-12 11:51 | XMS_ITS | Encounter Summary ---
Author Organization [employer] Address [address] [place] [address] 7t [place] [address] Care Team Providers Care Pediatrics Hospitalist Name Role Phone Jose M Campbell VERNOICA Primary Care Provider Unavail Sandra MercadoP Primary Care Provider [phone] NameDaniel MD Primary Care Provider [phone] Milana Mata DO Primary Care Provider + [phone] Reason for Visit * Reason Comments Med Refill Encounter Details Date Type Department Care Team (Late st Contact Info) Description 07/04/2023 Refill [facility] [address] [place], [place] [phone] Name, MD Daniel [address] [place] [address] Social History Tobacco Use Types Packs/Day Years Used Date Smoking Tobacco: Never Passive Smoke Exposure: Never Smokeless Tobacco: Never Alcohol Use Standard Drinks/Week Comments Never 0 (1 standard drink = 0.6 oz pur e alcohol) Depression Answer Date Recorded Patient Health Questionnaire-9 Score 12 03/02/2023 Depression Answer Date Recorded Patient Health Questionnaire-2 [...] documented as of this encounter Care Teams Pediatrics Hospitalist Relationship Specialty Start Date End Date Campbell Salguero AGNP PCP - General Family Medicine 09/25/22 07/05/23 Sandra De Jesus FNP [address] [place] [address] PCP - General Family Medicine 07/06/23 06/23/24 Daniel Krause MD [address] [place] [address] PCP - General Internal Medicine 06/24/24 07/01/24 Milana Mata DO [address] [place] [address] PCP - General Family Medicine 07/02/24 documented as of this encounter
--- OUTSIDE RECORDS SUMMARY | 2024-11-12 11:51 | XMS_ITS | Encounter Summary ---
Author Organization [employer] Address [address] [facility] [address] 7t [place] [address] Care Team Providers Care Psychotherapist Social Worker Name Role Phone Sandra De Jesus Primary Care Provider + Name, Daniel العراقي Primary Care Provider [phone] Milana Mata DO Primary Care Provider [phone] Encounter Details Date Type Department Care Team (Late st Contact Info) Description 09/03/2023 Abstract [facility] [address] [place] [address] Iram Resendiz Social History Tobacco Use Types Packs/Day Years [...] documented as of this encounter Care Teams Psychotherapist Social Worker Relationship Specialty Start Date End Date Sandra De Jesus FNP [address] [place] [address] PCP - General Family Medicine 07/06/23 06/23/24 Daniel Krause MD [address] [place] [address] PCP - General Internal Medicine 06/24/24 07/01/24 Milana Mata DO [address] [place] [address] PCP - General Family Medicine 07/02/24 documented as of this encounter
--- OUTSIDE RECORDS SUMMARY | 2024-11-12 11:51 | XMS_ITS | Encounter Summary ---
Author Organization [employer] Address [address] [facility] 7t [place] [address] Care Team Providers Care Medical Assistant Secretary Name Role Phone Milana Mata DO Primary Care Provider Reason for Visit * Reason Onset Date Comments refill 11/11/2024 Med Refill 11/11/2024 Encounter Details Date Type Department Care Team (Late st Contact Info) Description 11/11/2024 Refill [facility] [address] [place] [address] Milana Mata DO [address] [place] [address] Cervical neck pain with evidence of disc [...] as of this encounter Miscellaneous Notes * Addendum Note - Pauline Mcfarland RN - 11/11/2024 11:46 AM ESTAddended by: PAULINE MCFARLAND on: 11/11/2024 11:46 AM Modules accepted: Orders * Telephone Encounter - Rosalinda Weller - 11/11/2024 11:34 AM EST Pt walked in requesting refill for Tramadol 50 mg documented in this encounter Plan of Treatment Not on file documented as of this encounter Visit Diagnoses Diagnosis Cervical neck pain with evidence of disc disease Other and unspecified disc disorder of cervical region documented in this encounter Additional Health Concerns Assessment Noted Time PHQ-9 Depression Total Score: 8 11/15/19 9:20 AM EST documented as of this encounter Care Teams Medical Assistant Secretary Relationship Specialty Start Date End Date Milana Mata DO [address] [place] [address] PCP - General Family Medicine 07/02/24 documented as of this encounter
--- OUTSIDE RECORDS SUMMARY | 2024-11-12 11:51 | XMS_ITS | Encounter Summary ---
Author Organization [employer] Address [address] [facility] 7t [place] [address] Care Team Providers Care Charter Bus Driver Name Role Phone Sandra De Jesus Primary Care Provider [phone] Jimi, Daniel العراقي Primary Care Provider [phone] Milana Mata DO Primary Care Provider + [phone] Reason for Visit * Reason Onset Date Comments [employer] Reevaluation 05/06/2024 Encounter Details Date Type Department Care Team (Late st Contact Info) Description 05/06/2024 Telephone [facility] MEDICINE [address] [place], [place] [phone] Sandra De Jesus FNP [address] [place], [place] [phone] [employer] Reevaluation Social History Tobacco Use Types Packs/Day Years [...] Telephone Encounter - Alexys Orozco RN - 05/13/2024 9:28 AM EDT Return call from Jamal[place], explain that client want to re-start foster care program, Isidra advised to fax form to [facility], provider will review it and will contact agency if needed anything. Isidra verbally greed and understood. * Telephone Encounter - Alexys Orozco RN - 05/13/2024 9:09 AM EDT T/C x 2 am to [phone] for isidra for below message, No answer. Janitor sent message to call back on [phone]. T/C to lissett to inform that [facility] is trying to call [employer] company for below message , but not able to contact them. LVM to call back on [phone]. Lissett states she is going to call them, Lissett also informed if [employer] company / [employer] is missing any sign please fax documents on [phone] to get sign from PCP. Lissett states she is going to call to company. * Telephone Encounter - Lorena Waldrop - 05/12/2024 4:06 PM EDT Tc from pt spouse regarding message below. * Telephone Encounter - Alexys Orozco RN - 05/12/2024 10:05 AM EDT T/C to [phone] for isidra for below message, No answer. Janitor sent message to call back on [phone]. * Telephone Encounter - Humberto Arauz - 05/12/2024 9:52 AM EDT Tc from [facility] requesting a status on PCP order form. Please see notes. Please contact at [phone] ( ask for isidra ) * Telephone Encounter - Brenda Gifford - 05/09/2024 12:35 PM EDT Tc from pt and Lissett requesting a call back in regards below message. Please contact at [phone] * Telephone Encounter - Alexys Orozco RN - 05/06/2024 4:21 PM EDT T/C to pt. For below message, pt. States his [employer] company called him and states PCP discontinue the service for [employer]WORKING [employer] services, pt. States he is having upcoming surgery and needs [employer] services. RN cannotsee any notes that says to discontinue service. RN will send this message to PCP for review. Pleasereview and advise. * Telephone Encounter - Angelique Madrid - 05/06/2024 12:42 PM EDT Tc from [facility] calling to inform pt was seen with pcp on 05/02/24 and an order for [facility] for pt to continue with services . States they called facility and was inform services was discontinued by pcp . Please call to clarify . documented in this encounter Plan of Treatment Not on file documented as of this encounter Visit Diagnoses Not on filedocumented in this encounter Additional Health Concerns Assessment Noted Time PHQ-9 Depression Total Score: 8 11/15/19 24 9:20 AM EST documented as of this encounter Care Teams Charter Bus Driver Relationship Specialty Start Date End Date Sandra De Jesus FNP [address] [place] [address] PCP - General Family Medicine 07/06/23 06/23/24 Name, MD Daniel [address] [place] [address] PCP - General Internal Medicine 06/24/24 07/01/24 Milana Mata DO [address] [place] [address] PCP - General Family Medicine 07/02/24 documented as of this encounter
--- OUTSIDE RECORDS SUMMARY | 2024-11-12 11:51 | XMS_ITS | Encounter Summary ---
Author Organization [employer] Address [address] [facility] 7t [place] [address] Care Team Providers Care Livestock Nutrition Territory Manager Name Role Phone Sandra De Jesus Primary Care Provider + Jimi, Daniel العراقي Primary Care Provider [phone] Milana Mata DO Primary Care Provider [phone] Reason for Visit * Reason Comments Med Refill Encounter Details Date Type Department Care Team (Late st Contact Info) Description 09/30/2023 Refill [facility] [address] [place] [address] Campbell Salguero AGNP Social History Tobacco Use Types Packs/Day Years [...] documented as of this encounter Care Teams Livestock Nutrition Territory Manager Relationship Specialty Start Date End Date Sandra De Jesus FNP [address] [place] [address] PCP - General Family Medicine 07/06/23 06/23/24 Daniel Krause MD [address] [place] [address] PCP - General Internal Medicine 06/24/24 07/01/24 Milana Mata DO [address] [place] [address] PCP - General Family Medicine 07/02/24 documented as of this encounter
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
--- OUTSIDE RECORDS SUMMARY | 2024-11-12 11:52 | XMS_ITS | Encounter Summary ---
Author Organization [employer] Address [address] [facility] 7t [place] [address] Care Team Providers Care Top Inventory Control Executive Name Role Phone Salguero Campbell VERONICA Primary Care Provider Unavail Sandra Mercado Primary Care Provider + Daniel Krause MD Primary Care Provider [phone] Milana Mata DO Primary Care Provider +[phone] Reason for Visit * Reason Comments Med Refill Encounter Details Date Type Department Care Team ([facility] st Contact Info) Description 04/05/2023 Refill [facility] [address] [place], [place] [phone] Evie Francisco MD [address] [place] [address] Allergic rhinitis, unspecified seasonality, unspecified trigger Social History Tobacco Use Types Packs/Day Years [...] not to disclose 2021 10:16 AM EDT COVID-19 Exposure Response Date Recorded In the last 10 days, have yo u been in contact with someone who was confirmed or suspected to have Coronavirus/COVID-19? No / Unsure 04/04/2023 8:41 AM EDT documented as of this encounter Plan of Treatment Not on file documented as of this encounter Visit Diagnoses Diagnosis Allergic rhinitis, unspecified seasonality, unspecified trigger documented in this encounter Additional Health Concerns Assessment Noted Time PHQ-9 Depression Total Score: 12 023 2:23 PM EDT documented as of this encounter Care Teams Top Inventory Control Executive Relationship Specialty Start Date End Date Campbell Salguero AGNP PCP - General Family Medicine 09/25/22 07/05/23 Sandra De Jesus FNP [address] [place] [address] PCP - General Family Medicine 07/06/23 06/23/24 Daniel Krause MD [address] [place] [address] PCP - General Internal Medicine 06/24/24 07/01/24 Milana Mata DO [address] [place] [address] PCP - General Family Medicine 07/02/24 documented as of this encounter
--- OUTSIDE RECORDS SUMMARY | 2024-11-12 11:52 | XMS_ITS | Encounter Summary ---
Author Organization [employer] Address [address] [facility] 7t [place] [address] Care Team Providers Care Replenishment Merchandising Associate Name Role Phone Campbell Salguero Primary Care Provider Unavail Sandra Mercado Primary Care Provider + Daniel Krause MD Primary Care Provider [phone] Milana Mata DO Primary Care Provider +[phone] Encounter Details Date Type Department Care Team (Late st Contact Info) Description 04/25/2023 Telephone [facility] MEDICINE [address] [place] [address] Earlene Lange LPN Social History Tobacco Use Types Packs/Day Years [...] suspected to have Coronavirus/COVID-19? No / Unsure 04/20/2023 8:57 AM EDT documented as of this encounter Plan of Treatment Not on file documented as of this encounter Visit Diagnoses Not on filedocumented in this encounter Additional Health Concerns Assessment Noted Time PHQ-9 Depression Total Score: 12 023 2:23 PM EDT documented as of this encounter Care Teams Replenishment Merchandising Associate Relationship Specialty Start Date End Date Campbell Salguero AGNP PCP - General Family Medicine 09/25/22 07/05/23 Sandra De Jesus FNP [address] [place] [address] PCP - General Family Medicine 07/06/23 06/23/24 Daniel Krause MD [address] [place] [address] PCP - General Internal Medicine 06/24/24 07/01/24 Milana Mata DO [address] [place] [address] PCP - General Family Medicine 07/02/24 documented as of this encounter
--- OUTSIDE RECORDS SUMMARY | 2024-11-12 11:52 | XMS_ITS | Encounter Summary ---
Author Organization [employer] Address [address] [facility] 7t [place] [address] Care Team Providers Care Him Manager Name Role Phone Campbell Salguero Primary Care Provider Unavail Sandra Mercado Primary Care Provider + NameDaniel MD Primary Care Provider [phone] Milana Mata DO Primary Care Provider [phone] Reason for Visit * Reason Onset Date Comments Nurse Triage 05/28/2023 Encounter Details Date Type Department Care Team (Late st Contact Info) Description 05/28/2023 Telephone [facility] [address] [place] [address] Campbell Salguero AGNP Nurse Triage Social History Tobacco Use Types Packs/Day Years [...] encounter Miscellaneous Notes * Telephone Encounter - Yasmine Esparza RN - 05/30/2023 9:23 AM EDT Call to Pt with [employer] Lead [place] [id number] Pt is given message from EVIN Salguero, reduce tamulosin to 0.4mg daily or only one capsule daily. A referral has been given for urology . Pt verbalized under standing no further questions. Protocol Used: Information Only Call - No Triage (Adult) Protocol-Based Disposition: Home Care Positive Triage Question: * Information only question and nurse able to answer * All higher-acuity triage questions were negative Care Advice Discussed: * Reasons To Call Back - New symptoms develop - You become worse * Telephone Encounter - GLENYS Landry - 05/30/2023 8:52 AM EDT Please contact patient and inform them to reduce their tamsulosin use back to the previous 0.4 mg dose. Also inform them that I will be placing a referral to urology. * Telephone Encounter - Yasmine Esparza RN - 05/28/2023 10:33 AM EDT Triage call Pt gives permission for WALLPAPER INSTALLER, Lissett, to speak for Pt. PT was seen in office 05/18/23 and medication dosage changed. Tamulosin 0.4mg was increased to 0.8mg. Pt reports a feeling of spasm with urination and having difficulty with ejaculation . Advised will send to PCP and nursing team forfollow up and Pt agreed with this disposition. Protocol Used: Medication Question Call (Adult) Protocol-Based Disposition: Callback or Video Visit by PCP Today Video visit not offered Positive Triage Question: * Caller has NON-URGENT medicine question about med that PCP or specialist prescribed and triager unable to answer question * All higher-acuity triage questions were negative Care Advice Discussed: * Reasons To Call Back - You have any more questions - You become worse * Telephone Encounter - Bharti Franks - 05/28/2023 10:13 AM EDT Symptom: Medication Reaction Outcome: Schedule an urgent appointment (within 1 hour) or talk to a nurse or provider soon Reason: tingling sensation in lower abdomin, side effects The caller accepted this outcome Please contact lissett at [phone] documented in this encounter Plan of Treatment Not on file documented as of this encounter Visit Diagnoses Diagnosis Benign prostatic hyperplasia with incomplete bladder emptying- Primary documented in this encounter Additional Health Concerns Assessment Noted Time PHQ-9 Depression Total Score: 12 023 2:23 PM EDT documented as of this encounter Care Teams Him Manager Relationship Specialty Start Date End Date Campbell Salguero AGNP PCP - General Family Medicine 09/25/22 07/05/23 Sandra De Jesus FNP [address] [place] [address] PCP - General Family Medicine 07/06/23 06/23/24 Name, MD Daniel [address] [place] [address] PCP - General Internal Medicine 06/24/24 07/01/24 Milana Mata DO [address] [place] [address] PCP - General Family Medicine 07/02/24 documented as of this encounter
== END 2024-11-12 11:07 | disposition home or self-care (01) ==
LOC: HO.HOS 10:37
PROVIDERS: PCP Family Medicine; Visit Provider Orthopaedic Surgery
DX: M54.50 Low back pain, unspecified (principal); M79.604 Pain in right leg; M79.605 Pain in left leg
CPT/HCPCS: 99213

== ENCOUNTER → 2024-11-12 10:37 | Outpatient (BNVA) | payer MEDICAID, SELFPAY | PROVIDERS: PCP Family Medicine; Visit Provider Orthopaedic Surgery | DX: M54.50 Low back pain, unspecified (principal); M79.604 Pain in right leg; M79.605 Pain in left leg | CPT/HCPCS: 99212 ==

== ENCOUNTER 2024-11-19 09:54 | Outpatient (AMB) | payer MEDICAID, SELFPAY ==
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
[2024-11-19 09:56] VITALS: BP 134/72; PULSE 95; RESP 16; O2SAT 95; BMI 37.1
--- OUTSIDE RECORDS SUMMARY | 2024-11-19 11:40 | XMS_ITS ---
Author Organization [facility] Address [address] [place] [address] Care Team Providers Care Cnc Machine Setter Name Role Phone Milana Mata M.D. Primary Care Provider Fabiola vailable Raphael Powell Jr Unavailable REASON FOR VISIT Pt no show Encounters Encounter Location Date Provider Diagnosis [facility] [address] [place] [address] 07/21/2024 Raphael Powell Jr PLAN OF TREATMENT Next Appt Details Provider Name:Raphael yi Jr, 05/13/2025 10:40:00 AM, [address], [address], [place], [address],
--- OUTSIDE RECORDS SUMMARY | 2024-11-19 11:40 | XMS_ITS | Encounter Summary ---
Author Organization [employer] Address [address] [facility] 7t [place] [address] Care Team Providers Care Bureau Director Name Role Phone VinMilana dwyer Primary Care Provider [phone] Reason for Visit * Reason Onset Date Comments Recall Appt. 11/17/2024 Encounter Details Date Type Department Care Team ([facility] st Contact Info) Description 11/17/2024 Telephone [facility] [address] [place], [place] [phone] Hortencia Blackmon MA Recall Appt. Social History Tobacco Use Types Packs/Day Years [...] encounter Miscellaneous Notes * Telephone Encounter - Hortencia Blackmon MA - 11/17/2024 3:31 PM EST Spoke with patient schedule [facility] 12/31/24 at 10:45am. Mailed appt. Letter. documented in this encounter Plan of Treatment Upcoming Encounters Date Type Department Care Team (Late st Contact Info) Description 12/31/2024 10:45 AM EDT Office Visit [facility] [address] [place] [address] Milana Mata DO [address] [place] [address] documented as of this encounter Visit Diagnoses Not on filedocumented in this encounter Additional Health Concerns Assessment Noted Time PHQ-9 Depression Total Score: 8 11/15/19 9:20 AM EST documented as of this encounter Care Teams Bureau Director Relationship Specialty Start Date End Date Milana Mata DO [address] [place] [address] PCP - General Family Medicine 07/02/24 documented as of this encounter
--- OUTSIDE RECORDS SUMMARY | 2024-11-19 11:40 | XMS_ITS | Encounter Summary ---
Author Organization [employer] Address [address] [facility] 7t [place] [address] Care Team Providers Care Landfill Attendant Name Role Phone Sandra De Jesus Primary Care Provider [phone] Jimi, Daniel العراقي Primary Care Provider [phone] Milana Mata DO Primary Care Provider + [phone] Reason for Visit * Reason Onset Date Comments [employer]IST Reevaluation 05/06/2024 Encounter Details Date Type Department Care Team (Late st Contact Info) Description 05/06/2024 Telephone [facility] [address] [place], [place] [phone] Sandra De Jesus FNP [address] [place], [place] [phone] BIO[employer]YIST Reevaluation Social History Tobacco Use Types Packs/Day [...] 05/13/2024 9:28 AM EDT Return call from [employer], explain that client want to re-start foster care program, Isidra advised to fax form to [facility], provider will review it and will contact agency if needed anything. Isidra verbally greed and understood. * Telephone Encounter - Alexys Orozco RN - 05/13/2024 9:09 AM EDT T/C x 2 am to [phone] for isidra for below message, No answer. Drip Pumper sent message to call back on [phone]. T/C to lissett to inform that [facility] is trying to call [employer] / [employer] company for below message , but not able to contact them. LVM to call back on [phone]. Lissett states she is going to call them, Lissett also informed if [employer] company / [employer] is missing any sign please fax documents on [phone] to get sign from PCP. Lissett states she is going to call to company. * Telephone Encounter - Lorena Waldrop - 05/12/2024 4:06 PM EDT Tc from pt spouse regarding message below. * Telephone Encounter - Alexys Orozco RN - 05/12/2024 10:05 AM EDT T/C to [phone] for isidra for below message, No answer. Drip Pumper sent message to call back on [phone]. * Telephone Encounter - Humberto Arauz - 05/12/2024 9:52 AM EDT Tc from [facility] requesting a status on PCP order form. Please see notes. Please contact at [phone] ( ask for isidra ) * Telephone Encounter - Brenda Gifford - 05/09/2024 12:35 PM EDT Tc from pt and Lissett requesting a call back in regards below message. Please contact at [phone] * Telephone Encounter - Alexys Orozco RN - 05/06/2024 4:21 PM EDT T/C to pt. For below message, pt. States his [employer]IO[employer]SAYIST company called him and states PCP discontinue the service for BIOASSAYIST services, pt. States he is having upcoming surgery and needs BIOASSAYIST services. RN cannotsee any notes that says [...] Description 12/31/2024 10:45 AM EDT Office Visit [facility] [address] [place] [address] Milana Mata DO [address] [place] [address] documented as of this encounter Visit Diagnoses Not on filedocumented in this encounter Additional Health Concerns Assessment Noted Time PHQ-9 Depression Total Score: 8 11/15/19 24 9:20 AM EST documented as of this encounter Care Teams Landfill Attendant Relationship Specialty Start Date End Date Sandra De Jesus FNP [address] [place] [address] PCP - General Family Medicine 07/06/23 06/23/24 Name, MD Daniel [address] [place] [address] PCP - General Internal Medicine 06/24/24 07/01/24 Milana Mata DO [address] [place] [address] PCP - General Family Medicine 07/02/24 documented as of this encounter
--- OUTSIDE RECORDS SUMMARY | 2024-11-19 11:40 | XMS_ITS | Encounter Summary ---
Author Organization [employer] Address [address] [facility] [address] [facility] [address] 7t [place] [address] Care Team Providers Care Research Aide Name Role Phone Milana Mata DO Primary Care Provider + [phone] Reason for Visit * Reason Comments Med Refill Encounter Details Date Type Department Care Team ([facility] st Contact Info) Description 11/11/2024 Refill [facility] [address] [place], [place] [phone] Milana Mata DO [address] [facility] [place] [address] Cervical neck pain with evidence of disc [...] as of this encounter Plan of Treatment Upcoming Encounters Date Type Department Care Team (Late st Contact Info) Description 12/31/2024 10:45 AM EDT Office Visit [facility]INE [address] [place] [address] Milana Mata DO [address] [place] [address] documented as of this encounter Visit Diagnoses Diagnosis Cervical neck pain with evidence of disc disease Other and unspecified disc disorder of cervical region documented in this encounter Additional Health Concerns Assessment Noted Time PHQ-9 Depression Total Score: 8 11/15/19 24 9:20 AM EST documented as of this encounter Care Teams Research Aide Relationship Specialty Start Date End Date Milana Mata DO [address] [place] [address] PCP - General Family Medicine 07/02/24 documented as of this encounter
--- OUTSIDE RECORDS SUMMARY | 2024-11-19 11:40 | XMS_ITS ---
Author Organization [facility] Address [address] [place] [address] Care Team Providers Care Assistant District Attorney Name Role Phone Milana Mata M.D. Primary Care Provider Raphael Cortes Jr Unavailable ALLERGIES Allergen (clinical drug ingredient) [...] 11/12/2024 Encounters Encounter Location Date Provider Diagnosis [facility] [address] [place] [address] 11/12/2024 Raphael Powell Jr Generalized abdominal pain [...] Name:Raphael yi Jr, 05/13/2025 10:40:00 AM, [address], [address], [place], [address],
--- OUTSIDE RECORDS SUMMARY | 2024-11-19 11:40 | XMS_ITS | Encounter Summary ---
Author Organization [employer] Address [address] [facility] 7t [place] [address] Care Team Providers Care Reading Interventionist Name Role Phone Sandra De Jesus Primary Care Provider [phone] Name, Daniel العراقي Primary Care Provider [phone] Milana Mata DO Primary Care Provider + [phone] Reason for Visit * Reason Onset Date Comments ER Follow-up 04/14/2024 Encounter Details Date Type Department Care Team ([facility] st Contact Info) Description 04/14/2024 Telephone [facility] [address] [place], [place] [phone] Sandra De Jesus FNP [address] [place], [place] [phone] ER Follow-up Social History Tobacco Use Types [...] Miscellaneous Notes * Telephone Encounter - Alexys Orzoco RN - 04/14/2024 2:04 PM EDT T/C to pt. For below message. Pt. Schedule for ED follow up on 04/18. CHARMAINE english is in pt.'s chart.Pt. Also advised to go to nearest ED in case of any new or worsening symptoms. [facility] hours are reviewed. * Telephone Encounter - Humberto Arauz - 04/14/2024 1:06 PM EDT Patient calling to report ED visit on : Date: 04/10/24 Hospital: [facility] Seen for: reaction to medication (gabapentin (Neurontin) 100 MG capsule ) - body aches, headaches. Patient advised will forward to team nurse for follow up. Please contact at [phone] Danish documented in this encounter Plan of Treatment Upcoming Encounters Date Type Department Care Team (Late st Contact Info) Description 12/31/2024 10:45 AM EDT Office Visit [facility] [address] [place] [address] Milana Mata DO [address] [place] [address] documented as of this encounter Visit Diagnoses Not on filedocumented in this encounter Additional Health Concerns Assessment Noted Time PHQ-9 Depression Total Score: 8 11/15/19 9:20 AM EST documented as of this encounter Care Teams Reading Interventionist Relationship Specialty Start Date End Date Sandra De Jesus FNP [address] [place] [address] PCP - General Family Medicine 07/06/23 06/23/24 Name, MD [place] [address] PCP - General Internal Medicine 06/24/24 07/01/24 Mil[place] [address] PCP - General Family Medicine 07/02/24 documented as of this encounter
--- OUTSIDE RECORDS SUMMARY | 2024-11-19 11:40 | XMS_ITS | Encounter Summary ---
Author Organization [employer] Address [address] [facility] 7[address] [place] [address] Care Team Providers Care Mainframe Systems Programmer Name Role Phone Sandra De Jesus Primary Care Provider + Name, Daniel العراقي Primary Care Provider [phone] Milana Mata DO Primary Care Provider [phone] Encounter Details Date Type Department Care Team (Late st Contact Info) Description 09/03/2023 Abstract [facility] [address] [place] [address] Iram Resendiz Social History Tobacco Use Types [...] Description 12/31/2024 10:45 AM EDT Office Visit [facility] [address] [place] [address] Milana Mata DO [address] [place] [address] documented as of this encounter Visit Diagnoses Not on filedocumented in this encounter Additional Health Concerns Assessment Noted Time PHQ-9 Depression Total Score: 12 023 2:23 PM EDT documented as of this encounter Care Teams Mainframe Systems Programmer Relationship Specialty Start Date End Date Sandra De Jesus FNP [address] [place] [address] PCP - General Family Medicine 07/06/23 06/23/24 NameDaniel MD [address] [place] [address] PCP - General Internal Medicine 06/24/24 07/01/24 Milana Mata DO [address] [place] [id number] PCP - General Family Medicine 07/02/24 documented as of this encounter
--- OUTSIDE RECORDS SUMMARY | 2024-11-19 11:40 | XMS_ITS | Encounter Summary ---
Author Organization [employer] Address [address] [facility] [address] 7[address] [place] [address] Care Team Providers Care Alley Cleaner Name Role Phone AdolfoMilana Primary Care Provider [phone] Encounter Details Date Type Department Care Team ([facility] st Contact Info) Description 10/17/2024 Orders Only [facility] External Provider, [facility] Social History Tobacco Use Types Packs/Day Years [...] Description 12/31/2024 10:45 AM EDT Office Visit [facility] MEDICINE 230 [facility] [address] Milana Mata DO [address] [place] [address] documented as of this encounter Procedures Procedure Name Priority Date/Time Associated Diagnosis Comments MR LUMBAR SPINE WO CONTRAST Routine 10/17/2024 7:10 PM EST documented in this encounter Results * MR Lumbar Spine w/o Contrast (10/17/2024 7:10 PM EST) Anatomical Region Laterality Modality Spine, L-spine Magnetic Resonan ce 10/17/2024 7:10 PM EST Narrative 10/28/2024 3:13 PM EST ? [facility] ?[address] ?[place] [address] ? Magnetic Resonance Report ? Signed ? Patient: Jose Alberto Frey,Reynaldo ?MR#: [id number] ?? [id number] ? : 1970 ?Acct:[id number] ? Age/Sex: 54 / M ?ADM Date: 12/27/24 ? Loc: HO.MRI ? Attending Dorothy Tao MD ? Ordering Physician: Vladimir Tao MD ?? Date of Service: 10/17/24 ?? Procedure(s): MR lumbar spine wo con ?? Accession Number(s): [id number] ? cc: Milana Mata DO; Vladimir Tao [...] in OV> ? 10/28/24 1510 ? DD/ 09 ? TD/TT: 10/17/24 1935 ? Electron Beam Welding Machine Operator: ? Procedure Note Donotuseinterpreter, Image - 10/28/[address] [address] Magnetic Resonance Report Signed Patient: Patrick Osuna#: [id number] : 1970Acct:[id number] Age/Sex: 54 / MADM Date: 10/17/24 Loc: HO.MRI Attending Dr: Vladimir Tao MD Ordering Physician: Vladimir Tao MD Date of Service: 10/17/24 Procedure(s): MR lumbar spine wo con Accession Number(s): [id number] cc: Milana Mata DO; Vladimir Tao MD [...] Jiménez MDin OV> 10/28/24 1510 DD/ TD/TT: 10/17/24 193 Electron Beam Welding Machine Operator: [facility] External Provider IMG MRI PROCEDURES Final Result documented in this encounter Visit Diagnoses Not on filedocumented in this encounter Additional Health Concerns Assessment Noted Time PHQ-9 Depression Total Score: 8 11/15/19 24 9:20 AM EST documented as of this encounter Care Teams Alley Cleaner Relationship Specialty Start Date End Date Milana Mata DO 230 [place] [address] PCP - General Family Medicine 07/02/24 documented as of this encounter
--- OUTSIDE RECORDS SUMMARY | 2024-11-19 11:40 | XMS_ITS | Encounter Summary ---
Author Organization [employer] Address 75 [facility] 7t [place] [address] Care Team Providers Care Embedded Nurse Name Role Phone Milana Mata DO Primary Care Provider Reason for Visit * Reason Onset Date Comments refill 11/11/2024 Med Refill 11/11/2024 Encounter Details Date Type Department Care Team (Late st Contact Info) Description 11/11/2024 Refill [facility] MEDICINE [address] [place] [address] Milana Mata DO 230 [place] [address] Cervical neck pain with evidence of disc [...] Description 12/31/2024 10:45 AM EDT Office Visit [facility] MEDICINE [address] [place] [address] Milana Mata DO 230 [place] [address] documented as of this encounter Visit Diagnoses Diagnosis Cervical neck pain with evidence of disc disease Other and unspecified disc disorder of cervical region documented in this encounter Additional Health Concerns Assessment Noted Time PHQ-9 Depression Total Score: 8 11/15/19 24 9:20 AM EST documented as of this encounter Care Teams Embedded Nurse Relationship Specialty Start Date End Date Milana Mata DO [address] [place] [address] PCP - General Family Medicine 07/02/24 documented as of this encounter
--- OUTSIDE RECORDS SUMMARY | 2024-11-19 11:40 | XMS_ITS | Encounter Summary ---
Author Organization [employer] Address [address] [facility] [address] 7t [place] [address] Care Team Providers Care Manager Of Manufacturing Name Role Phone Sandra De Jesus Primary Care Provider + Name, aDniel العراقي Primary Care Provider [phone] Milana Mata DO Primary Care Provider [phone] Encounter Details Date Type Department Care Team (Late st Contact Info) Description 05/23/2024 Orders Only [facility] [address] [place] [address] Sandra De Jesus FNP [address] [place] [address] Cervical neck pain with evidence of disc [...] Description 12/31/2024 10:45 AM EDT Office Visit [facility] MED[facility] [address] [place] [address] Milana Mata DO [address] [place] [address] documented as of this encounter Visit Diagnoses Diagnosis Cervical neck pain with evidence of disc disease- Primary Other and unspecified disc disorder of cervical region documented in this encounter Additional Health Concerns Assessment Noted Time PHQ-9 Depression Total Score: 8 11/15/19 9:20 AM EST documented as of this encounter Care Teams Manager Of Manufacturing Relationship Specialty Start Date End Date Sandra De Jesus FNP [address] [place] [address] PCP - General Family Medicine 07/06/23 06/23/24 Daniel Krause MD [address] [place] [address] PCP - General Internal Medicine 06/24/24 07/01/24 Milana Mata DO [address] [place] [address], [place] [address] PCP - General Family Medicine 07/02/24 documented as of this encounter
--- OUTSIDE RECORDS SUMMARY | 2024-11-19 11:40 | XMS_ITS | Clinical Summary ---
Author Organization [employer] Address 75 [facility] 7t [place] [address] Care Team Providers Care Storage Consultant Name Role Phone AdolfoMilana Primary Care Provider Allergies Active Allergy Reactions Criticality Noted Date Comments [place]-Containing Products Anaphylaxis High 04/20/2023 Fruit Extracts 10/10/2023 Pt states he is allergic to any fruit that has seeds Penicillins Rash High 10/12/2010 [place] Oil 08/21/2024 Medications cloNIDine (Catapres) 0.2 MG [...] eorder (will not trigger notification to Pharmacy)) traMADol (Ultram) 50 MG tabletIndications :Cervical neck pain with evidence of disc disease Take 1 tablet (50 mg) by mouth every 6 (six) hours if needed for severe pain for up to 7 days. 28 tablet 11/11/19 25 2024 Active Problems Problem Noted Date Diagnosed Date [...] there were small polyps. 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 Does not wear glasses. Dental home: upcoming appointment next month at [facility]. Allergies 04/20/2023 07/24/2024 Assessment & Plan (04/20/2023 [...] was prudent to send him to an pets and pet supplies salesperson to get a comprehensive and accurate list [...] Encounters Date Type Department Care Team Description 11/17/2024 Telephone [facility] MEDICINE [address] [place] [address] Hortencia Blackmon [place] Recall Appt. 11/17/2024 Travel 11/11/2024 Refill [facility] [address] [place] [address] Milana Mata, Cervical neck pain with evidence of disc disease 11/11/2024 Refill [facility] [address] [place] [address] Milana Mata, Cervical neck pain with evidence of disc disease 10/17/2024 Orders Only [facility] External Provider, [facility] 10/06/2024 Refill [facility] 505 [place] [address] Milana Mata, Cervical neck pain with evidence of disc disease 09/26/2024 2:30 PM EST Office Visit [facility] [address] [place] [address] Jerry Steinberg DDS 09/25/2024 Refill [facility] [address] [place] [address] Sandra De Jesus FNP 09/24/2024 Refill [facility] [address] [place] [address] Sandra De Jesus FNP Allergic rhinitis, unspecified seasonality, unspecified trigger 09/11/2024 Refill [facility] [address] [place] [address] Milana Mata, DO Cervical neck pain with evidence of disc disease 09/05/2024 Refill [facility] [address] [place] [address] Name, MD Daniel Hyperlipidemia, unspecified hyperlipidemia type 09/04/2024 Refill [facility] [address] [place] [address] Sandra De Jesus, JASPREET Allergic rhinitis due to other allergic trigger, unspecified seasonality 09/02/2024 Orders Only [facility] [address] [place] [address] Milana Mata DO Chronic pain of both knees (Primary Dx); Pain in both hands 09/01/2024 Telephone [facility] [address] [place] [address] Norma Cleary, RN Results 08/21/2024 11:30 AM EDT Office Visit [facility] [address] [place] [address] Nora West DDS Symptomatic periapical periodontitis (Primary Dx) 08/21/2024 Telephone [facility] [address] [place] [address] Milana Mata DO Nurse Triage from Last 3 Months Immunizations Name Administration [...] 08/11/2024 1:15 PM EDT Plan of Treatment Upcoming Encounters Date Type Department Care Team (Late st Contact Info) Description 12/31/2024 10:45 AM EDT Office Visit [facility] MEDICINE [address] [place] [address] Milana Mata DO [address] [place] [address] Health Maintenance Due Date Last Done Comments [...] 5 Years) and At-Risk Patients (6 to 49) Years) Completed 10/10/2023 COVID-19 Vaccine Completed 07/24/2024, [...] EST Narrative 10/28/2024 3:13 PM EST ? [facility] ?[address] ?[place] [address] ? Magnetic Resonance Report ? Signed ? Patient: Jose Alberto Frey,Reynaldo ?MR#: [id number] ?? [id number] ? : 1970 ?Acct:[id number] ? Age/Sex: 54 / M ?ADM Date: 10/17/24 ? Loc: HO.MRI ? Attending Dr: Vladimir Tao MD ? Ordering Physician: Vladimir Tao MD ?? Date of Service: 10/17/24 ?? Procedure(s): MR lumbar spine wo con ?? Accession Number(s): [id number] ? cc: Milana Mata DO; Vladimir Tao [...] in OV> ? 10/28/24 1510 ? DD/ 1910 ? TD/TT: 10/17/241934 ? Enrober: ? Procedure Note Verito, Image - 10/28/2024 [place] [address] Magnetic Resonance Report Signed Patient: Patrick Osuna#: [id number] : 1970Acct:[id number] Age/Sex: 54 / MADM Date: 10/17/24 Loc: HO.MRI Attending Dr: Vladimir Tao MD Ordering Physician: Vladimir Tao MD Date of Service: 10/17/24 Procedure(s): MR lumbar spine wo con Accession Number(s): [id number] cc: Milana Mata DO; Vladimir Tao MD [...] by: Saurabh Dejesus MD 10/28/2024 03:10 PM [facility] Dictated By: Saurabh Pena MD Signed By: <Electronically signed by Saurabh Jiménez MDin OV> 10/28/24 1510 DD/ 09 TD/TT: 10/17/241934 Enrober: [facility] External Provider IMG MRI PROCEDURES Final Result * Hepatitis C Antibody with Reflex to HCV, RNA, Quantitative, Real-Time PCR (07/28/2024 10:21 AM EDT) Hepatitis C Antibody Nonreactive Nonreactive [facility] Comment:Antibodies to HCV no t detected; does not exclude early acuteHCV infection. Blood Venous blood specimen / Unknown 07/28/2024 10:21 AM EDT 07/28/2024 11:15 AM EDT Milana Mata DO LAB BLOOD ORDERABLES Final R esult [facility] [address] [place] [address] [phone] * HIV-1/2 Antigen and Antibodies, Fourth Generation, with Reflexes (07/28/2024 10:21 AM EDT) HIV AB/AG Nonreactive Nonreactive [facility] Comment:HIV-1 p24 Ag and/or HIV-1/HIV-2 Ab not detected.A test result that is nonreactive does not exclude thepossibility of exposure to or infection with HIV-1 and/orHIV-2. Nonreactive results in this assay for individualswith prior exposure to HIV-1 and/or HIV-2 may be due toantigen and antibody levels that are below the limit ofdetection of this assay.The [employer] HIV Ag/Ab Combo assay result andsupplemental assay results should be interpreted inconjunction with the patient's clinical presentation,history and other laboratory results. If the results areinconsistent with clinical evidence, additional testing issuggested to confirm the result. Blood Venous blood specimen / Unknown 07/28/2024 10:21 AM EDT 07/28/2024 11:15 AM EDT Milana Mata DO LAB BLOOD ORDERABLES Final R esult Performing Organization Address [facility]/ZIP Co de Phone Number [facility] [address] [place] [phone] [phone] * (ABNORMAL) Hemoglobin A1c (07/28/2024 10:21 AM EDT) Hemoglobin A1c 6.3(H) <6.0 % [facility] Comment:Hemoglobin A1C Refer ence Range Adults: 4.8 - 6.0 % Non diabetic: < 6.0 % Goal: < 7.0 %Additional Action Suggested: > 8.0 %Note: Hemoglobin A1c results are invalid for patients with abnormal amounts of HbF. Blood transfusions may impact the HbA1c concentration in the patient sample. Estimated Average Glucose 134 mg/dL [facility] Comment:eAG = Estimated ave rage glucose which is %A1C expressed asaverage glucose, using the formula of the O7D-WcmkydrXgkxnnu Glucose study (ADAG), Diabetes Care, Vol.31,#8,May. 2007 Blood Venous blood specimen / Unknown 07/28/2024 10:21 AM EDT 07/28/2024 11:15 AM EDT Milana Mata DO LAB BLOOD ORDERABLES Final R esult Performing Organization Address [facility] Co de Phone Number [facility] [address] [place] [phone] * (ABNORMAL) Lipid Panel, Standard (07/28/2024 10:21 AM EDT) Triglycerides 116 <150 mg/dL [facility] Comment:Desirable Triglyceri de: less than 150 mg/dLBorderline High Triglyceride 150-199 mg/dLHigh Triglyceride: 200-499 mg/dLVery High Triglyceride: greater than or equal to 5OO mg/dL Cholesterol 127 <200 mg/dL [facility] Comment:Desirable Cholestero l: less than 200 mg/dLBorderline High Cholesterol: 200-239 mg/dLHigh Cholesterol: greater than 239 mg/dL LDL Cholesterol Calculated 67 <100 mg/dL [facility] Comment:Desirable LDL: less than 100 mg/dLNear Optimal/Above Optimal LDL: 110- 129 mg/dLBorderline High LDL: 130-159 mg/dLHigh LDL: 160-189 mg/dLVery High LDL: greater than or equal to 190 mg/dL HDL Cholesterol 37(L) >40 mg/dL [facility] Comment:Desirable HDL: great er than 40 mg/dL Note: This HDL assay may give artificially low results in patients with liver disease. Blood Venous blood specimen / Unknown 07/28/2024 10:21 AM EDT 07/28/2024 10:55 AM EDT Milana Mata DO LAB BLOOD ORDERABLES Final R esult Performing Organization Address City/[facility] Co de Phone Number [facility] [address] [place] [address] [phone] * (ABNORMAL) Fecal Globin by Immunochemistry (11/15/2023 9:03 AM EST) Fecal Globin By Immunochemistry SEE NOTE(A) [facility] Comment:FECAL GLOBIN BY IMMU NOCHEMISTRY Micro Number: [id number] Test Status: Final Specimen Source: Not given Specimen Quality: Adequate Fecal Globin: DetectedTHIS TEST WAS PERFORMED AT:[id number] [place] [id number] VILLALPANDO MD Stool Rectal contents / Unknown 11/15/2023 9:03 AM EST 11/15/2023 12:27 PM EST Fátima Bridges ADMIN SECRETARY LAB BODY FLUIDS AND STOOLS ORD ERABLES Final Result [facility] [address] [place] [phone] * Hm Colonoscopy (04/19/2023 2:32 PM EDT) Colonoscopy Normal Normal Comment:Repeat in 5 years Historical Provider HEALTH MAINTENANCE Final Result from Last 3 Months or Most Recently Relevant to Health Maintenance Insurance [facility] C[place] AD[place] Care Teams Storage Consultant Relationship Specialty Start Date End Date Milana Mata DO [address] [place] [id number] PCP - General Family Medicine 07/02/24
--- OUTSIDE RECORDS SUMMARY | 2024-11-19 11:40 | XMS_ITS | Encounter Summary ---
Author Organization [employer] Address [address] [facility] 7t [place] [address] Care Team Providers Care Regional Loss Prevention Manager Name Role Phone Sandra De Jesus Primary Care Provider + Jimi, Daniel العراقي Primary Care Provider [phone] Milana Mata DO Primary Care Provider [phone] Reason for Visit * Reason Comments Med Refill Encounter Details Date Type Department Care Team (Late st Contact Info) Description 09/30/2023 Refill [facility] MEDICINE [address] [place] [address] Campbell Salguero AGNP Social History Tobacco Use [...] Description 12/31/2024 10:45 AM EDT Office Visit [facility] MEDICINE 230 [place] [address] Milana Mata DO [address] [place] [address] documented as of this encounter Visit Diagnoses Not on filedocumented in this encounter Additional Health Concerns Assessment Noted Time PHQ-9 Depression Total Score: 12 023 2:23 PM EDT documented as of this encounter Care Teams Regional Loss Prevention Manager Relationship Specialty Start Date End Date Sandra De Jesus FNP [address] [place] [address] PCP - General Family Medicine 07/06/23 06/23/24 Name, MD Daniel [address] [place] [address] PCP - General Internal Medicine 06/24/24 07/01/24 Milana Mata DO [address] [place] [phone] PCP - General Family Medicine 07/02/24 documented as of this encounter
--- OUTSIDE RECORDS SUMMARY | 2024-11-19 11:40 | XMS_ITS | Encounter Summary ---
Author Organization [email or web address] Address 75 [facility] 7t [place] [address] Care Team Providers Care Schedule Announcer Name Role Phone Sandra De Jesus Primary Care Provider [phone] Name, Daniel العراقي Primary Care Provider [phone] Milana Mata DO Primary Care Provider + [phone] Encounter Details Date Type Department Care Team (Late st Contact Info) Description 02/05/2024 Telephone [facility] MEDICINE [address] [place] [address] Sandra De Jesus FNP [address] [place] [address] Social History Tobacco Use Types Packs/Day Years [...] your housing situation today? I have [place] laston 08/21/[address] you li [...] Description 12/31/2024 10:45 AM EDT Office Visit [facility] MEDICINE [address] [place] [address] Milana Mata DO [address] [place] [address] documented as of this encounter Visit Diagnoses Not on filedocumented in this encounter Additional Health Concerns Assessment Noted Time PHQ-9 Depression Total Score: 8 11/15/19 24 9:20 AM EST documented as of this encounter Care Teams Schedule Announcer Relationship Specialty Start Date End Date Sandra De Jesus FNP [address] [place] [address] PCP - General Family Medicine 07/06/23 06/23/24 Daniel Krause MD [address] [place] [address] PCP - General Internal Medicine 06/24/24 07/01/24 Milana Mata DO [address] [place] [address] PCP - General Family Medicine 07/02/24 documented as of this encounter
--- OUTSIDE RECORDS SUMMARY | 2024-11-19 11:40 | XMS_ITS | Encounter Summary ---
Author Organization [employer] Address 75 [facility] 7t [place] [address] Care Team Providers Care Mortgage Underwriter Name Role Phone Milana Mata Primary Care Provider Encounter Details Date Type Department Care Team (Latest Contact Info) Description 11/17/2024 Travel Social History Tobacco Use Types Packs/Day Years [...] Description 12/31/2024 10:45 AM EDT Office Visit [facility] MEDICINE [address] [place] [address] Milana Mata DO [address] [place] [address] documented as of this encounter Visit Diagnoses Not on filedocumented in this encounter Additional Health Concerns Assessment Noted Time PHQ-9 Depression Total Score: 8 11/15/19 24 9:20 AM EST documented as of this encounter Care Teams Mortgage Underwriter Relationship Specialty Start Date End Date Milana Mata DO [address] [place] [address] PCP - General Family Medicine 07/02/24 documented as of this encounter
--- OUTSIDE RECORDS SUMMARY | 2024-11-19 11:41 | XMS_ITS | Encounter Summary ---
Author Organization [employer] Address 75 [facility] 7t [place] [address] Care Team Providers Care Insurance And Financial Services Agent Name Role Phone Campbell aSlguero Primary Care Provider Unavail Sandra Mercado Primary Care Provider + Daniel Krause MD Primary Care Provider [phone] Milana Mata DO Primary Care Provider [phone] Encounter Details Date Type Department Care Team ([facility] Contact Info) Description 04/25/2023 Telephone [facility] MEDICINE [address] [place] [address] Earlene Lange LPN Social History Tobacco Use [...] Upcoming Encounters Date Type Department Care Team ([facility] Contact Info) Description 12/31/2024 10:45 AM EDT Office Visit [facility] MEDICINE [address] [place] [address] Milana Mata DO [address] [place] [address] documented as of this encounter Visit Diagnoses Not on filedocumented in this encounter Additional Health Concerns Assessment Noted Time PHQ-9 Depression Total Score: 12 023 2:23 PM EDT documented as of this encounter Care Teams Insurance And Financial Services Agent Relationship Specialty Start Date End Date Campbell Salguero AGNP PCP - General Family Medicine 09/25/22 07/05/23 Sandra [place] [address] PCP - General Family Medicine 07/06/23 06/23/24 [place] [address] PCP - General Internal Medicine 06/24/24 07/01/24 Milana Mata DO [address] [place] [address] PCP - General Family Medicine 07/02/24 documented as of this encounter
--- OUTSIDE RECORDS SUMMARY | 2024-11-19 11:41 | XMS_ITS | Encounter Summary ---
Author Organization [employer] [facility] Address [address] [place] [address] 7t [place] [address] Care Team Providers Care Volleyball Coach Name Role Phone Jose M Campbell VERONICA Primary Care Provider Unavail Sandra MercadoP Primary Care Provider [phone] NameDaniel MD Primary Care Provider [phone] Milana Mata DO Primary Care Provider + [phone] Reason for Visit * Reason Comments Med Refill Encounter Details Date Type Department Care Team (Late Contact Info) Description 07/04/2023 Refill [facility] MEDICINE [address] [place] [address] Name, MD Daniel [address] [place] [address] Social History Tobacco Use Types Packs/Day Years [...] Encounters Date Type Department Care Team (Late Contact Info) Description 12/31/2024 10:45 AM EDT Office Visit [facility] MEDICINE [address] [place] [address] Milana Mata DO [address] [place] [address] documented as of this encounter Visit Diagnoses Not on filedocumented in this encounter Additional Health Concerns Assessment Noted Time PHQ-9 Depression Total Score: 12 023 2:23 PM EDT documented as of this encounter Care Teams Volleyball Coach Relationship Specialty Start Date End Date Campbell Salguero AGNP PCP - General Family Medicine 09/25/22 07/05/23 Sandra De Jesus FNP [address] [place] [address] PCP - General Family Medicine 07/06/23 06/23/24 Name, MD Daniel [address] [place] [address] PCP - General Internal Medicine 06/24/24 07/01/24 Milana Mata DO [address] [place] [address] PCP - General Family Medicine 07/02/24 documented as of this encounter
--- OUTSIDE RECORDS SUMMARY | 2024-11-19 11:41 | XMS_ITS | Encounter Summary ---
Author Organization [employer] Address 75 [facility] 7t [place] [address] Care Team Providers Care Supervisor Finishing Department Name Role Phone Salguero Campbell VERONICA Primary Care Provider Unavail Sandra Mercado Primary Care Provider + Daniel Krause MD Primary Care Provider [phone] Milana Mata DO Primary Care Provider [phone] Reason for Visit * Reason Comments Med Refill Encounter Details Date Type Department Care Team ([facility] st Contact Info) Description 04/05/2023 Refill [facility] [address] [place], [place] [phone] Evie Francisco MD [address] [place] [address] Allergic rhinitis, unspecified seasonality, unspecified trigger Social [...] Description 12/31/2024 10:45 AM EDT Office Visit [facility] [address] [facility] [place] [address] Milana Mata DO [address] [place] [address] documented as of this encounter Visit Diagnoses Diagnosis Allergic rhinitis, unspecified seasonality, unspecified trigger documented in this encounter Additional Health Concerns Assessment Noted Time PHQ-9 Depression Total Score: 12 023 2:23 PM EDT documented as of this encounter Care Teams Supervisor Finishing Department Relationship Specialty Start Date End Date Campbell Salguero AGNP PCP - General Family Medicine 09/25/22 07/05/23 [place] [address] PCP - General Family Medicine 07/06/23 06/23/24 Jimi, [place] [address] PCP - General Internal Medicine 06/24/24 07/01/24 [place] [address] PCP - General Family Medicine 07/02/24 documented as of this encounter
--- OUTSIDE RECORDS SUMMARY | 2024-11-19 11:41 | XMS_ITS ---
Author Organization [facility] Address [address] [place] [address] Care Team Providers Care Children'S Choir Director Name Role Phone Milana Mata M.D. Primary Care Provider Fabiola vailable Raphael Powell Jr Unavailable [phone] REASON FOR VISIT Patient presents today for diverticulitis Encounters Encounter Location Date Provider Diagnosis [facility] [address] [place] [address] 07/21/2024 Raphael Powell Jr PLAN OF TREATMENT Next Appt Details Provider Name:Raphael yi Jr, 05/13/2025 10:40:00 AM, [address], [address], [place], [address],
--- OUTSIDE RECORDS SUMMARY | 2024-11-19 11:41 | XMS_ITS | Encounter Summary ---
Author Organization [employer] Address 75 [facility] 7t [place] [address] Care Team Providers Care Lead Care Manager Name Role Phone AdolfoMilana Primary Care Provider + [phone] Reason for Visit * Reason Comments Med Refill Encounter Details Date Type Department Care Team ([facility] st Contact Info) Description 09/04/2024 Refill [facility] [address] [place], [place] [phone] Sandra De Jesus FNP [address] [place] [address] Allergic rhinitis due to other allergic trigger, [...] Description 12/31/2024 10:45 AM EDT Office Visit [facility] [address] [place] [address] Milana Mata DO [address] [place] [address] documented as of this encounter Visit Diagnoses Diagnosis Allergic rhinitis due to other allergic trigger, unspecified seasonality documented in this encounter Additional Health Concerns Assessment Noted Time PHQ-9 Depression Total Score: 8 11/15/19 24 9:20 AM EST documented as of this encounter Care Teams Lead Care Manager Relationship Specialty Start Date End Date Milana Mata DO 230 [place] [address] PCP - General Family Medicine 07/02/24 documented as of this encounter
--- OUTSIDE RECORDS SUMMARY | 2024-11-19 11:41 | XMS_ITS | Encounter Summary ---
Author Organization [employer] Address [address] [facility] 7t [place] [address] Care Team Providers Care Mortgage Manager Name Role Phone Campbell Salguero Primary Care Provider Unavail Sandra Mercado Primary Care Provider + NameDaniel MD Primary Care Provider [phone] Milana Mata DO Primary Care Provider + [phone] Reason for Visit * Reason Onset Date Comments Nurse Triage 05/28/2023 Encounter Details Date Type Department Care Team (Late st Contact Info) Description 05/28/2023 Telephone [facility] [address] [place] [address] Campbell Salguero AGNP Nurse Triage Social History [...] 9:23 AM EDT Call to Pt with [place] Supervisor [place] [id number] Pt is given message from EVIN Salguero, [...] EDT Triage call Pt gives permission for ASPHALT TAMPING MACHINE OPERATOR, Lissett, to speak for Pt. PT was [...] accepted this outcome Please contact lissett at [phone] documented in this encounter Plan of Treatment Upcoming Encounters Date Type Department Care Team (Late st Contact Info) Description 12/31/2024 10:45 AM EDT Office Visit [facility] [address] [place] [address] Milana Mata DO [address] [place] [address] documented as of this encounter Visit Diagnoses Diagnosis Benign prostatic hyperplasia with incomplete bladder emptying- Primary documented in this encounter Additional Health Concerns Assessment Noted Time PHQ-9 Depression Total Score: 12 023 2:23 PM EDT documented as of this encounter Care Teams Mortgage Manager Relationship Specialty Start Date End Date Campbell Salguero AGNP PCP - General Family Medicine 09/25/22 07/05/23 Sandra De Jesus FNP [address] [place] [address] PCP - General Family Medicine 07/06/23 06/23/24 Daniel Krause MD [address] [place] [address] PCP - General Internal Medicine 06/24/24 07/01/24 Milana Mata DO [address] [place] [address] PCP - General Family Medicine 07/02/24 documented as of this encounter
--- OUTSIDE RECORDS SUMMARY | 2024-11-19 11:41 | XMS_ITS | Encounter Summary ---
Author Organization [employer] Address [address] [facility] 7t [place] [address] Care Team Providers Care Math Specialist Name Role Phone Sandra De Jesus Primary Care Provider +[phone] Name, Daniel العراقي Primary Care Provider [phone] Milana Mata DO Primary Care Provider + [phone] Reason for Visit * Reason Comments Med Refill Encounter Details Date Type Department Care Team ([facility] st Contact Info) Description 10/21/2023 Refill [facility] [address] [place], [place] [phone] Sandra De Jesus FNP [address] [place], [place] [phone] Social History Tobacco Use Types Packs/Day Years [...] Description 12/31/2024 10:45 AM EDT Office Visit [facility] [address] [place] [address] Milana Mata DO [address] [place] [address] documented as of this encounter Visit Diagnoses Not on filedocumented in this encounter Additional Health Concerns Assessment Noted Time PHQ-9 Depression Total Score: 12 023 2:23 PM EDT documented as of this encounter Care Teams Math Specialist Relationship Specialty Start Date End Date Sandra De Jesus FNP [address] [place] [address] PCP - General Family Medicine 07/06/23 06/23/24 Daniel Krause MD [address] [place] [address] PCP - General Internal Medicine 06/24/24 07/01/24 Milana Mata DO [address] [place] [address] PCP - General Family Medicine 07/02/24 documented as of this encounter
--- OUTSIDE RECORDS SUMMARY | 2024-11-19 11:41 | XMS_ITS | Patient Health Record ---
Author Organization [facility] Address [address] [place] [address] Care Team Providers Care Fuel Distribution System Operator Name Role Phone Milana Mata M.D. Primary Care Provider Raphael Cortes Jr Unavailable ALLERGIES Allergen (clinical drug ingredient) Drug/Non Drug Allergy documented on EMR Reaction Allergy Type Onset Date Status Penicillin Unknown Drug Allergy Active REASON FOR REFERRAL Referring Provider First Name Fátima Referring Provider Last Name Yuliana Referred Organization [facility] Referred Provider Raphael Powell Jr Referred Address [address] [facility],[address],[place], [place],[address],[place] Referred Provider Specialty Gastroentero logy General Notes Kathreine Kraus 024 07:59:40 AM EDT > requested a [facility] referral from [facility] for office visit with Dr. Powell on [phone] screening colon Referral Priority Routine MEDICATIONS Medication [...] Problem Hypertension, unspecified type (I10) Active confirmed 15604257 Problem Acute diverticulitis (K57.92) Active confirmed 594880525 Problem Family history of colon cancer (Z80.0) Active confirmed 058250544 Problem Diverticulitis (K57.92) Active confirmed 594509865 Problem Diverticulitis of large intestine without perforation or abscess without bleeding (K57.32) Active confirmed 3356099 Problem Gas bloat syndrome (K92.89) Active confirmed 412627033 VITAL SIGNS Temperature 98.7 degrees Fahrenheit 11/12/2024 Blood pressure diastolic 00 mm Hg 11/12/2024 Height 65 in 11/12/2024 Blood pressure systolic 000 mm Hg 11/12/2024 Weight 224 lb 2 oz lbs 11/12/2024 BMI 37.29 kg/m2 11/12/2024 Encounters Encounter Location Date Provider Diagnosis [facility] [address] [place] [address] 04/14/2024 Raphael Powell Jr [facility] [address] [place] [address] 07/21/2024 Raphael Powell Jr [facility] [address] [place] [address] 11/12/2024 Raphael Powell Jr Generalized abdominal pain R10.84 [facility] [address] [place] [address] 04/11/2024 Raphael Powell Jr [facility] [address] [place] [address] 07/21/2024 Raphael Powell Jr ASSESSMENTS Encounter Date [...] Name:Raphael yi Jr, 05/13/2025 10:40:00 AM, [address] [facility], [address], [place], [address], Insurance Providers Payer Name Payer Address Payer Phone Subscriber Number Group Number Insured Name Patient Relationship to Insured Coverage Start Date Coverage End Date MED[place] [address] [place] [id number] ORAL SOARES Self - patient is the [...]
--- OUTSIDE RECORDS SUMMARY | 2024-11-19 11:41 | XMS_ITS | Encounter Summary ---
Author Organization [employer] Address [address] [facility] 7t [place] [address] Care Team Providers Care Clerical Adjudicator Name Role Phone Sandra De Jesus Primary Care Provider + Jimi, Daniel العراقي Primary Care Provider [phone] Milana Mata DO Primary Care Provider + Reason for Visit * Reason Comments Med Refill Encounter Details Date Type Department Care Team ([facility] st Contact Info) Description 08/01/2023 Refill [facility] [address] [place] [address] Ryan Nation MD [address] [place] [address] Social History Tobacco Use Types Packs/Day Years [...] Visit [facility] [address] [place], [place] [phone] Milana Mata DO [address] [place] [address] documented as of this encounter Visit Diagnoses Not on filedocumented in this encounter Additional Health Concerns Assessment Noted Time PHQ-9 Depression Total Score: 12 023 2:23 PM EDT documented as of this encounter Care Teams Clerical Adjudicator Relationship Specialty Start Date End Date Sandra De Jesus FNP [address] [place], [place] [phone] PCP - General Family Medicine 07/06/23 06/23/24 Daniel Krause MD [address] [place] [phone] PCP - General Internal Medicine 06/24/24 07/01/24 Milana Mata DO [address] [place] [address] PCP - General Family Medicine 07/02/24 documented as of this encounter
== END 2024-11-19 10:32 | disposition home or self-care (01) ==
PROVIDERS: PCP Family Medicine; Referring Provider Orthopaedic Surgery; Visit Provider Internal Medicine
DX: M54.16 Radiculopathy, lumbar region (principal); M54.51 Vertebrogenic low back pain
CPT/HCPCS: 99213

== ENCOUNTER → 2024-11-19 09:54 | Outpatient (BNVA) | payer MEDICAID, SELFPAY | PROVIDERS: PCP Family Medicine; Referring Provider Orthopaedic Surgery; Visit Provider Internal Medicine | DX: M54.16 Radiculopathy, lumbar region (principal); M54.51 Vertebrogenic low back pain | CPT/HCPCS: 99212 ==

== ENCOUNTER 2024-12-04 07:36 | Outpatient (REF) | payer MEDICAID, SELFPAY ==
--- OUTSIDE RECORDS SUMMARY | 2024-12-04 07:37 | XMS_ITS | Encounter Summary ---
Author Organization [employer] Address [address] [facility] 7t [place] [address] Care Team Providers Care Hand Fretted Instrument Maker Name Role Phone Sandra De Jesus Primary Care Provider [phone] Jimi, Daniel العراقي Primary Care Provider [phone] Milana Mata DO Primary Care Provider + [phone] Reason for Visit * Reason Onset Date Comments WELDER FABRICATOR Reevaluation 05/06/2024 Encounter Details Date Type Department Care Team (Late st Contact Info) Description 05/06/2024 Telephone [facility] MEDICINE [address] [place], [place] [phone] Sandra De Jesus FNP [address] [place], [place] [phone] WELDER FABRICATOR Reevaluation Social History Tobacco Use Types Packs/Day [...] 05/13/2024 9:28 AM EDT Return call from [employer], explain that client want to re-start foster care program, Isidra advised to fax form to [facility], provider will review it and will contact agency if needed anything. Isidra verbally greed and understood. * Telephone Encounter - Alexys Orozco RN - 05/13/2024 9:09 AM EDT T/C x 2 am to [phone] for isidra for below message, No answer. Teletype Operator sent message to call back on [phone]. T/C to lissett to inform that [facility] is trying to call [employer] / [employer]ELDER [employer]ABRIC[employer] company for below message , but not able to contact them. LVM to call back on [phone]. Lissett states she is going to call them, Lissett also informed if WELDER FABRICATOR company / [employer] is missing any sign please fax documents on [phone] to get sign from PCP. Lissett states she is going to call to company. * Telephone Encounter - Lorena Waldrop - 05/12/2024 4:06 PM EDT Tc from pt spouse regarding message below. * Telephone Encounter - Alexys Orozco RN - 05/12/2024 10:05 AM EDT T/C to [phone] for isidra for below message, No answer. Teletype Operator sent message to call back on [phone]. * Telephone Encounter - Humberto Arauz - 05/12/2024 9:52 AM EDT Tc from [facility] requesting a status on PCP order form. Please see notes. Please contact at [phone] ( ask for isidra ) * Telephone Encounter - Brenda Gifford - 05/09/2024 12:35 PM EDT Tc from pt and Lissett requesting a call back in regards below message. Please contact at [phone] * Telephone Encounter - Alexys Orozco RN - 05/06/2024 4:21 PM EDT T/C to pt. For below message, pt. States his WELDER FABRICATOR company called him and states PCP discontinue the service for WELDER FABRICATOR services, pt. States he is having upcoming surgery and needs WELDER FABRICATOR services. RN cannotsee any notes that says [...] Description 12/31/2024 10:45 AM EDT Office Visit [facility] MEDICINE [address] [place] [address] Milana Mata DO [address] [place] [address] documented as of this encounter Visit Diagnoses Not on filedocumented in this encounter Additional Health Concerns Assessment Noted Time PHQ-9 Depression Total Score: 8 11/15/19 24 9:20 AM EST documented as of this encounter Care Teams Hand Fretted Instrument Maker Relationship Specialty Start Date End Date Sandra De Jesus FNP [address] [place] [address] PCP - General Family Medicine 07/06/23 06/23/24 Name, MD Daniel [address] [place] [address] PCP - General Internal Medicine 06/24/24 07/01/24 Milana Mata DO [address] [place] [address] PCP - General Family Medicine 07/02/24 documented as of this encounter
--- OUTSIDE RECORDS SUMMARY | 2024-12-04 07:37 | XMS_ITS | Encounter Summary ---
Author Organization [employer] Address 75 [facility] 7t [place] [address] Care Team Providers Care Funeral Car Chauffeur Name Role Phone VinMilana dwyer Primary Care Provider [phone] Reason for Visit * Reason Onset Date Comments Recall Appt. 11/17/2024 Encounter Details Date Type Department Care Team ([facility] st Contact Info) Description 11/17/[address] [facility] MEDICINE [address] [place], [place] [phone] Hortencia Blackmon [place] Recall Appt. Social History [...] Description 12/31/2024 10:45 AM EDT Office Visit [facility] [address] [place] [address] Milana Mata DO [address] [place] [address] documented as of this encounter Visit Diagnoses Not on filedocumented in this encounter Additional Health Concerns Assessment Noted Time PHQ-9 Depression Total Score: 8 11/15/19 9:20 AM EST documented as of this encounter Care Teams Funeral Car Chauffeur Relationship Specialty Start Date End Date Milana Mata DO [address] [place] [address] PCP - General Family Medicine 07/02/24 documented as of this encounter
--- OUTSIDE RECORDS SUMMARY | 2024-12-04 07:37 | XMS_ITS | Encounter Summary ---
Author Organization [employer] Address 75 [facility] 7t [place] [address] Care Team Providers Care Advertising Assistant Name Role Phone Sandra De Jesus Primary Care Provider [phone] Name, Daniel العراقي Primary Care Provider [phone] Milana Mata DO Primary Care Provider + [phone] Encounter Details Date Type Department Care Team (Late st Contact Info) Description 02/05/2024 Telephone [facility] [address] [place] [address] Sandra De Jesus FNP [address] [place] [address] Social History Tobacco Use Types Packs/Day Years [...] Description 12/31/2024 10:45 AM EDT Office Visit [facility] [address] [place] [address] Milana Mata DO [address] [place] [address] documented as of this encounter Visit Diagnoses Not on filedocumented in this encounter Additional Health Concerns Assessment Noted Time PHQ-9 Depression Total Score: 8 11/15/19 24 9:20 AM EST documented as of this encounter Care Teams Advertising Assistant Relationship Specialty Start Date End Date Sandra De Jesus FNP [address] [place] [address] PCP - General Family Medicine 07/06/23 06/23/24 Daniel Krause MD [address] [place] [address] PCP - General Internal Medicine 06/24/24 07/01/24 Milana Mata DO [address] [place] [address] PCP - General Family Medicine 07/02/24 documented as of this encounter
--- OUTSIDE RECORDS SUMMARY | 2024-12-04 07:37 | XMS_ITS | Encounter Summary ---
Author Organization [employer] Address 75 [facility] 7t [place] [address] Care Team Providers Care Call Or Contact Centre Coach Name Role Phone Milana Mata DO Primary Care Provider + [phone] Encounter Details Date Type Department Care Team ([facility] st Contact Info) Description 12/02/2024 Refill [facility] [address] [place] [address] Milana Mata DO [address] [place], [place] [phone] Hyperlipidemia, unspecified hyperlipidemia type Social History Tobacco Use Types Packs/Day Years [...] Description 12/31/2024 10:45 AM EDT Office Visit [facility] MEDICINE [address] [place] [address] Milana Mata DO [address] [place] [address] documented as of this encounter Visit Diagnoses Diagnosis Hyperlipidemia, unspecified hyperlipidemia type documented in this encounter Additional Health Concerns Assessment Noted Time PHQ-9 Depression Total Score: 8 11/15/19 24 9:20 AM EST documented as of this encounter Care Teams Call Or Contact Centre Coach Relationship Specialty Start Date End Date Milana Mata DO [address] [place] [address] PCP - General Family Medicine 07/02/24 documented as of this encounter
--- OUTSIDE RECORDS SUMMARY | 2024-12-04 07:37 | XMS_ITS | Encounter Summary ---
Author Organization [employer] Address 75 [facility] 7t [place] [address] Care Team Providers Care High School Math Teacher Name Role Phone Milana Mata Primary Care [...] Description 12/31/2024 10:45 AM EDT Office Visit [facility] MED[facility] [address] [place] [address] Milana Mata DO [address] [place] [address] documented as of this encounter Visit Diagnoses Not on filedocumented in this encounter Additional Health Concerns Assessment Noted Time PHQ-9 Depression Total Score: 8 11/15/19 24 9:20 AM EST documented as of this encounter Care Teams High School Math Teacher Relationship Specialty Start Date End Date Milana Mata DO [address] [place] [address] PCP - General Family Medicine 07/02/24 documented as of this encounter
--- OUTSIDE RECORDS SUMMARY | 2024-12-04 07:38 | XMS_ITS | Encounter Summary ---
Author Organization [employer] Address [address] [facility] [address] 7t [place] [address] Care Team Providers Care Petroleum Analyst Name Role Phone Sandra De Jesus Primary Care Provider + Name, Daniel العراقي Primary Care Provider [phone] Milana Mata DO Primary Care Provider [phone] Encounter Details Date Type Department Care Team (Late st Contact Info) Description 05/23/2024 Orders Only [facility] MED & PEDS [address] [place] [address] Sandra De Jesus FNP [address] [place] [address] Cervical neck pain with evidence of disc [...] Office Visit [facility] MEDICINE [address] [place] [address] Milana Mata DO [address] [place] [address] documented as of this encounter Visit Diagnoses Diagnosis Cervical neck pain with evidence of disc disease- Primary Other and unspecified disc disorder of cervical region documented in this encounter Additional Health Concerns Assessment Noted Time PHQ-9 Depression Total Score: 8 11/15/19 9:20 AM EST documented as of this encounter Care Teams Petroleum Analyst Relationship Specialty Start Date End Date Sandra De Jesus FNP [address] [place] [address] PCP - General Family Medicine 07/06/23 06/23/24 Daniel Krause MD [address] [place] [address] PCP - General Internal Medicine 06/24/24 07/01/24 Milana Mata DO [address] [place] [address], [place] [address] PCP - General Family Medicine 07/02/24 documented as of this encounter
--- OUTSIDE RECORDS SUMMARY | 2024-12-04 07:38 | XMS_ITS | Clinical Summary ---
Author Organization [employer] Address [address] [facility] 7t [place] [address] Care Team Providers Care Senior Financial Reporting Analyst Name Role Phone AdolfoMilana Primary Care Provider Allergies Active Allergy Reactions Criticality Noted Date Comments [place]-Containing Products Anaphylaxis High 04/20/2023 Fruit Extracts 10/10/2023 Pt states he is allergic to any fruit that has seeds Penicillins Rash High 10/12/2010 [place] Oil 08/21/2024 Medications cloNIDine (Catapres) 0.2 MG [...] times daily. 60 tablet 08/11/20 24 Active cetirizine (ZyrTEC) 10 MG tabletIndications :Allergic rhinitis, unspecified seasonality, unspecified trigger TAKE 1 TABLET BY MOUTH ONCE DAILY 90 tablet 1 09/24/20 24 Active apixaban (Eliquis) 5 MG tablet TAKE 1 TABLET BY MOUTH TWICE DAILY IN THE MORNING AND IN THE EVENING 60 tablet 5 09/25/20 24 Active rosuvastatin (Crestor) 40 MG tabletIndications :Hyperlipidemia, unspecified hyperlipidemia type TAKE 1 TABLET BY MOUTH AT BEDTIME 90 tablet 12/03/19 25 Active rosuvastatin (Crestor) 40 MG tabletIndications :Hyperlipidemia, unspecified hyperlipidemia type Take 1 tablet (40 mg) by mouth at bedtime. 90 tablet 12/03/19 25 Active rosuvastatin (Crestor) 40 MG tabletIndications :Hyperlipidemia, unspecified hyperlipidemia type TAKE 1 TABLET BY MOUTH AT BEDTIME 90 tablet 09/05/20 24 2024 Discontinued(R eorder (will not trigger [...] to urology. Chronic gastroesophageal reflux disease 09/20/20 22 Overview (03/01/2023): Last Assessment & Plan: Asymptomatic. [...] there were small polyps. [place] exam[place] cocoa bean [place] [facility] [place]. [place] [facility] [place] Allergies 04/20/2023 07/24/2024 Assessment & Plan (04/20/2023 [...] was prudent to send him to an log washer to get a comprehensive and accurate list [...] Encounters Date Type Department Care Team Description 12/02/2024 Refill [facility] MEDICINE [address] [place] [address] Milana Mata, DO Hyperlipidemia, unspecified hyperlipidemia type 12/01/2024 Refill [facility] MEDICINE [address] [place] [address] Milana Mata, Hyperlipidemia, unspecified hyperlipidemia type 11/17/2024 Telephone [facility] MEDICINE [address] [place] [address] Hortencia Blackmon [place] Recall Appt. 11/17/2024 Travel 11/11/2024 Refill [facility] MEDICINE [address] [place] [address] Milana Mata, DO Cervical neck pain with evidence of disc disease 11/11/2024 Refill [facility]ED[facility] [address] [place] [address] Milana Mtaa, DO Cervical neck pain with evidence of disc disease 10/17/2024 Orders Only [facility] External Provider, [facility] 10/06/2024 Refill [facility]EDS [address] [place] [address] Milana Mata, DO Cervical neck pain with evidence of disc disease 09/26/2024 2:30 PM EST Office Visit [facility] ADULT DENTAL [address] [place] [address] Jerry Steinberg DDS 09/25/2024 Refill [facility] [address] [place] [address] Sandra De Jesus FNP 09/24/2024 Refill [facility] [address] [place] [address] Sandra De Jesus FNP Allergic rhinitis, unspecified seasonality, unspecified trigger 09/11/2024 Refill [facility] MED & PEDS [address] [place] [address] Milana Mata DO Cervical neck pain with evidence of disc disease 09/05/2024 Refill [facility] MEDICINE [address] [place] [address] Name, MD Daniel Hyperlipidemia, unspecified hyperlipidemia type 09/04/2024 Refill [facility] [address] [place] [address] Sandra De Jesus, COMMUTATOR V RING ASSEMBLER Allergic rhinitis due to other allergic trigger, unspecified seasonality from Last 3 Months Immunizations Name Administration [...] 12/31/2024 10:45 AM EDT Office Visit [facility] MEDICINE [address] [place] [address] Milana Mata DO [address] [place] [address] Health Maintenance Due Date Last Done Comments [...] Zoster Vaccines Completed 12/01/2022, 09/29/2022 Pneumococcal Vaccine: 50+ Years Completed 10/10/2023 COVID-19 Vaccine Completed 07/24/2024, , [...] CHARGE VISIT Routine 09/26/2024 2:30 PM EST BITEWING - SINGLE RADIOGRAPHIC IMAGE Routine 08/21/2024 11:30 AM EDT Symptomatic periapical periodontitis HEPATITIS C AB W/REFL TO HCV RNA, [...] EST Narrative 10/28/2024 3:13 PM EST ? [facility] ?[address] [facility] [address] ?[place] [address] ? Magnetic Resonance Report ? Signed ? Patient: Jose Alberto Frey,Reynaldo ?MR#: [id number] ?? [id number] ? : 1970 ?Acct:[id number] ? Age/Sex: 54 / M ?ADM Date: 12/27/24 ? Loc: HO.MRI ? Attending Dr: Vladimir Tao MD ? Ordering Physician: Vladimir Tao MD ?? Date of Service: 10/17/24 ?? Procedure(s): MR lumbar spine wo con ?? Accession Number(s): [id number] ? cc: Milana Mata DO; Vladimir Tao [...] by Saurabh Jiménez MD in OV> ? 10/28/241509 ? DD/ 09 ? TD/TT: 10/17/241934 ? Assistant Women'S Rowing Coach: ? Procedure Note Donotuseinterpreter, Image - 10/28/2024 [place] [address] Magnetic Resonance Report Signed Patient: Patrick Osuna#: [id number] : 1970Acct:[id number] Age/Sex: 54 / MADM Date: 10/17/24 Loc: HO.MRI Attending Dr: Vladimir Tao MD Ordering Physician: Vladimir Tao MD Date of Service: 10/17/24 Procedure(s): MR lumbar spine wo con Accession Number(s): [id number] cc: Milana Mata DO; Vladimir Tao MD [...] Saurabh Dejesus MD 10/28/2024 03:10 PM EST Dictated By: Saurabh Pena MD Signed By: <Electronically signed by Saurabh Jiménez MDin OV> 10/28/24 1510 DD/ 09 TD/TT: 10/17/241934 Assistant Women'S Rowing Coach: [facility] External Provider IMG MRI PROCEDURES Final Result * Hepatitis C Antibody with Reflex to HCV, RNA, Quantitative, Real-Time PCR (07/28/2024 10:21 AM EDT) Hepatitis C Antibody Nonreactive Nonreactive [facility] Comment:Antibodies to HCV no t detected; does not exclude early acuteHCV infection. Blood Venous blood specimen / Unknown 07/28/2024 10:21 AM EDT 07/28/2024 11:15 AM EDT Milana Mata DO LAB BLOOD ORDERABLES Final R esult [facility] [address] [place] [address] [phone] * HIV-1/2 Antigen and Antibodies, Fourth Generation, with Reflexes (07/28/2024 10:21 AM EDT) HIV AB/AG Nonreactive Nonreactive [facility] Comment:HIV-1 p24 Ag and/or HIV-1/HIV-2 Ab not detected.A test result that is nonreactive does not exclude thepossibility of exposure to or infection with HIV-1 and/orHIV-2. Nonreactive results in this assay for individualswith prior exposure to HIV-1 and/or HIV-2 may be due toantigen and antibody levels that are below the limit ofdetection of this assay.The [employer] HIV Ag/Ab Combo assay result andsupplemental assay results should be interpreted inconjunction with the patient's clinical presentation,history and other laboratory results. If the results areinconsistent with clinical evidence, additional testing issuggested to confirm the result. Blood Venous blood specimen / Unknown 07/28/2024 10:21 AM EDT 07/28/2024 11:15 AM EDT Milana Mata DO LAB BLOOD ORDERABLES Final R esult Performing Organization Address City/[facility] Co de Phone Number [facility] [address] [place] [phone] * (ABNORMAL) Hemoglobin A1c (07/28/2024 10:21 AM EDT) Hemoglobin A1c 6.3(H) <6.0 % [facility] Comment:Hemoglobin A1C Refer ence Range Adults: 4.8 - 6.0 % Non diabetic: < 6.0 % Goal: < 7.0 %Additional Action Suggested: > 8.0 %Note: Hemoglobin A1c results are invalid for patients with abnormal amounts of HbF. Blood transfusions may impact the HbA1c concentration in the patient sample. Estimated Average Glucose 134 mg/dL [facility] Comment:eAG = Estimated ave rage glucose which is %A1C expressed asaverage glucose, using the formula of the N3S-TulzsmqDbfopcs Glucose study (ADAG), Diabetes Care, Vol.31,#8,May. 2007 Blood Venous blood specimen / Unknown 07/28/2024 10:21 AM EDT 07/28/2024 11:15 AM EDT Milana Mata DO LAB BLOOD ORDERABLES Final R esult Performing Organization Address City/[facility] Co de Phone Number [facility] [address] [place] [address] [phone] * (ABNORMAL) Lipid Panel, Standard (07/28/2024 10:21 AM EDT) Triglycerides 116 <150 mg/dL [facility] Comment:Desirable Triglyceri de: less than 150 mg/dLBorderline High Triglyceride 150-199 mg/dLHigh Triglyceride: 200-499 mg/dLVery High Triglyceride: greater than or equal to 5OO mg/dL Cholesterol 127 <200 mg/dL [facility] Comment:Desirable Cholestero l: less than 200 mg/dLBorderline High Cholesterol: 200-239 mg/dLHigh Cholesterol: greater than 239 mg/dL LDL Cholesterol Calculated 67 <100 mg/dL [facility] Comment:Desirable LDL: less than 100 mg/dLNear Optimal/Above Optimal LDL: 110- 129 mg/dLBorderline High LDL: 130-159 mg/dLHigh LDL: 160-189 mg/dLVery High LDL: greater than or equal to 190 mg/dL HDL Cholesterol 37(L) >40 mg/dL [facility] Comment:Desirable HDL: great er than 40 mg/dL Note: This HDL assay may give artificially low results in patients with liver disease. Blood Venous blood specimen / Unknown 07/28/2024 10:21 AM EDT 07/28/2024 10:55 AM EDT Milana Mata DO LAB BLOOD ORDERABLES Final R esult [facility] [address] [place] [address] [phone] * (ABNORMAL) Fecal Globin by Immunochemistry (11/15/2023 9:03 AM EST) Fecal Globin By Immunochemistry SEE NOTE(A) [facility] Comment:FECAL GLOBIN BY IMMU NOCHEMISTRY Micro Number: [id number] Test Status: Final Specimen Source: Not given Specimen Quality: Adequate Fecal Globin: DetectedTHIS TEST WAS PERFORMED AT:[employer] [place] [phone] VILLALPANDO MD Stool Rectal contents / Unknown 11/15/2023 9:03 AM EST 11/15/2023 12:27 PM EST Fátima Bridges COMMUTATOR V RING ASSEMBLER LAB BODY FLUIDS AND STOOLS ORD ERABLES Final Result [facility] [address] [place] [phone] [phone] * Colonoscopy (04/19/2023 2:32 PM EDT) Colonoscopy Normal Normal Comment:Repeat in 5 years Historical Provider HEALTH MAINTENANCE Final Result from Last 3 Months or Most Recently Relevant to Health Maintenance Insurance [facility] AD[facility] Care Teams Senior Financial Reporting Analyst Relationship Specialty Start Date End Date Milana Mata DO [address] [place] [phone] PCP - General Family Medicine 07/02/24
--- OUTSIDE RECORDS SUMMARY | 2024-12-04 07:38 | XMS_ITS | Encounter Summary ---
Author Organization [employer] Address [address] [facility] 7t [place] [address] Care Team Providers Care Forgeman Helper Name Role Phone Milana Mata DO Primary Care Provider + [phone] Reason for Visit * Reason Comments Med Refill Encounter Details Date Type Department Care Team ([facility] st Contact Info) Description 12/01/2024 Refill [facility] [address] [place] [address] Milana Mata DO [address] [place] [address] Hyperlipidemia, unspecified hyperlipidemia type Social History Tobacco [...] 10:45 AM EDT Office Visit [facility] MED[facility] [address] [place] [address] Milana Mata DO [address] [place] [address] documented as of this encounter Visit Diagnoses Diagnosis Hyperlipidemia, unspecified hyperlipidemia type documented in this encounter Additional Health Concerns Assessment Noted Time PHQ-9 Depression Total Score: 8 11/15/19 24 9:20 AM EST documented as of this encounter Care Teams Forgeman Helper Relationship Specialty Start Date End Date Milana Mata DO [address] [place] [address] PCP - General Family Medicine 07/02/24 documented as of this encounter
--- OUTSIDE RECORDS SUMMARY | 2024-12-04 07:38 | XMS_ITS | Encounter Summary ---
Author Organization [email or web address] [facility] Address [address] [place] [address] 7t [place] [address] Care Team Providers Care Industrial Diamond Polisher Name Role Phone Jose M Campbell VERONICA Primary Care Provider Unavail Sandra MercadoP Primary Care Provider [phone] NameDaniel MD Primary Care Provider [phone] Milana aMta DO Primary Care Provider + [phone] Reason for Visit * Reason Comments Med Refill Encounter Details Date Type Department Care Team (Late Contact Info) Description 07/04/2023 Refill [facility] MEDICINE [address] [place] [address] Name, MD Daniel [address] [place] [address] Social History Tobacco Use Types Packs/Day Years [...] Visit [facility] MEDICINE [address] [place] [address] Milana Mata DO [address] [place] [address] documented as of this encounter Visit Diagnoses Not on filedocumented in this encounter Additional Health Concerns Assessment Noted Time PHQ-9 Depression Total Score: 12 023 2:23 PM EDT documented as of this encounter Care Teams Industrial Diamond Polisher Relationship Specialty Start Date End Date Campbell Salguero AGNP PCP - General Family Medicine 09/25/22 07/05/23 Sandra De Jesus FNP [address] [place] [address] PCP - General Family Medicine 07/06/23 06/23/24 Name, MD Daniel [address] [place] [address] PCP - General Internal Medicine 06/24/24 07/01/24 Milana Mata DO [address] [place] [address] PCP - General Family Medicine 07/02/24 documented as of this encounter
--- OUTSIDE RECORDS SUMMARY | 2024-12-04 07:38 | XMS_ITS | Encounter Summary ---
Author Organization [employer] Address [address] 7t [place] [address] Care Team Providers Care Manager Budget Name Role Phone Sandra De Jesus Primary Care Provider + Name, Daniel العراقي Primary Care Provider [phone] Milana Mata DO Primary Care Provider [phone] Encounter Details Date Type Department Care Team (Late st Contact Info) Description 09/03/2023 Abstract [facility] MEDICINE [address] [place], [place] [phone] Iram Resendiz Social History Tobacco Use Types [...] Description 12/31/2024 10:45 AM EDT Office Visit [facility] MEDICINE [address] [place] [address] Milana Mata DO [address] [place] [address] documented as of this encounter Visit Diagnoses Not on filedocumented in this encounter Additional Health Concerns Assessment Noted Time PHQ-9 Depression Total Score: 12 023 2:23 PM EDT documented as of this encounter Care Teams Manager Budget Relationship Specialty Start Date End Date Sandra De Jesus FNP [address] [place] [address] PCP - General Family Medicine 07/06/23 06/23/24 NameDaniel MD [address] [place] [phone] PCP - General Internal Medicine 06/24/24 07/01/24 Milana Mata DO [address] [place] [phone] PCP - General Family Medicine 07/02/24 documented as of this encounter
--- OUTSIDE RECORDS SUMMARY | 2024-12-04 07:38 | XMS_ITS | Encounter Summary ---
Author Organization [employer] Address [address] [facility] 7t [place] [address] Care Team Providers Care Color Laboratory Technician Name Role Phone Sandra De Jesus Primary Care Provider + Jimi, Daniel العراقي Primary Care Provider [phone] Milana Mata DO Primary Care Provider + Reason for Visit * Reason Comments Med Refill Encounter Details Date Type Department Care Team (Late st Contact Info) Description 09/30/[address] [facility] MEDICINE [address] [place] [address] Campbell Salguero AGNP Social History Tobacco Use [...] 12/31/2024 10:45 AM EDT Office Visit [facility] MEDICINE [address] [place] [address] Milana Maat DO [address] [place] [address] documented as of this encounter Visit Diagnoses Not on filedocumented in this encounter Additional Health Concerns Assessment Noted Time PHQ-9 Depression Total Score: 12 023 2:23 PM EDT documented as of this encounter Care Teams Color Laboratory Technician Relationship Specialty Start Date End Date Sandra De Jesus FNP [address] [place] [address] PCP - General Family Medicine 07/06/23 06/23/24 Name, MD Daniel [address] [place] [address] PCP - General Internal Medicine 06/24/24 07/01/24 Milana Mata DO [address] [place] [address] PCP - General Family Medicine 07/02/24 documented as of this encounter
--- OUTSIDE RECORDS SUMMARY | 2024-12-04 07:38 | XMS_ITS ---
Author Organization [facility] Address [address] [place] [address] Care Team Providers Care Registered Dental Assistant Rda Name Role Phone Milana Mata M.D. Primary Care Provider Fabiola vailable Raphael Powell Jr Unavailable REASON FOR VISIT Patient presents today for diverticulitis Encounters Encounter Location Date Provider Diagnosis [facility] [address] [place] [address] 07/21/2024 Raphael Powell Jr PLAN OF TREATMENT Next Appt Details Provider Name:Raphael yi Jr, 05/13/2025 10:40:00 AM, [address], [address], [place], [address],
--- OUTSIDE RECORDS SUMMARY | 2024-12-04 07:38 | XMS_ITS | Encounter Summary ---
Author Organization [employer] Address [address] [facility] 7t [place] [address] Care Team Providers Care Vehicle Refinisher Name Role Phone Salguero Campbell VERONICA Primary Care Provider Unavail Sandra Mercado Primary Care Provider + Daniel Krause MD Primary Care Provider [phone] Milana Mata DO Primary Care Provider [phone] Reason for Visit * Reason Comments Med Refill Encounter Details Date Type Department Care Team ([facility] st Contact Info) Description 04/05/2023 Refill [facility] MED & PEDS [address] [place], [place] [phone] Evie Francisco MD [address] [place] [address] Allergic rhinitis, unspecified seasonality, unspecified trigger Social [...] Description 12/31/2024 10:45 AM EDT Office Visit [facility] [address] [facility] [place] [address] Milana Mata DO [address] [place] [address] documented as of this encounter Visit Diagnoses Diagnosis Allergic rhinitis, unspecified seasonality, unspecified trigger documented in this encounter Additional Health Concerns Assessment Noted Time PHQ-9 Depression Total Score: 12 023 2:23 PM EDT documented as of this encounter Care Teams Vehicle Refinisher Relationship Specialty Start Date End Date Campbell Salguero AGNP PCP - General Family Medicine 09/25/22 07/05/23 [place] [address] PCP - General Family Medicine 07/06/23 06/23/24 Jimi, [place] [address] PCP - General Internal Medicine 06/24/24 07/01/24 [place] [address] PCP - General Family Medicine 07/02/24 documented as of this encounter
--- OUTSIDE RECORDS SUMMARY | 2024-12-04 07:38 | XMS_ITS | Encounter Summary ---
Author Organization [employer] Address [address] [facility] 7t [place] [address] Care Team Providers Care Allergy Specialist Name Role Phone Milana Mata DO Primary Care Provider Reason for Visit * Reason Onset Date Comments refill 11/11/2024 Med Refill 11/11/2024 Encounter Details Date Type Department Care Team (Late st Contact Info) Description 11/11/2024 Refill [facility] MEDICINE [address] [place] [address] Milana Mata DO [address] [place] [address] Cervical neck pain with evidence of disc [...] Office Visit [facility] MEDICINE [address] [place] [address] Milana Mata DO [address] [place] [address] documented as of this encounter Visit Diagnoses Diagnosis Cervical neck pain with evidence of disc disease Other and unspecified disc disorder of cervical region documented in this encounter Additional Health Concerns Assessment Noted Time PHQ-9 Depression Total Score: 8 11/15/19 24 9:20 AM EST documented as of this encounter Care Teams Allergy Specialist Relationship Specialty Start Date End Date Milana Mata DO [address] [place] [address] PCP - General Family Medicine 07/02/24 documented as of this encounter
--- OUTSIDE RECORDS SUMMARY | 2024-12-04 07:38 | XMS_ITS ---
Author Organization [facility] Address [address] [place] [address] Care Team Providers Care Pathology Secretary/Transcriptionist Name Role Phone Milana Mata M.D. Primary Care Provider Fabiola vailable Raphael Powell Jr Unavailable REASON FOR VISIT Pt no show Encounters Encounter Location Date Provider Diagnosis [facility] [address] [place] [address] 07/21/2024 Raphael Powell Jr PLAN OF TREATMENT Next Appt Details Provider Name:Raphael yi Jr, 05/13/2025 10:40:00 AM, [address], [address], [place], [address],
--- OUTSIDE RECORDS SUMMARY | 2024-12-04 07:38 | XMS_ITS | Encounter Summary ---
Author Organization [employer] Address [address] [facility] 7t [place] [address] Care Team Providers Care Inventory And Pricing Associate Name Role Phone Sandra De Jesus Primary Care Provider + Jimi, Daniel العراقي Primary Care Provider [phone] Milana Mata DO Primary Care Provider [phone] Reason for Visit * Reason Comments Med Refill Encounter Details Date Type Department Care Team ([facility] st Contact Info) Description 08/01/2023 Refill [facility] 230 [place] [address] Ryan Nation MD [address] [place] [address] Social History Tobacco Use Types Packs/Day Years [...] Description 12/31/2024 10:45 AM EDT Office Visit [facility] MEDICINE [address] [place], [place] [phone] Milana Mata DO [address] [place] [address] documented as of this encounter Visit Diagnoses Not on filedocumented in this encounter Additional Health Concerns Assessment Noted Time PHQ-9 Depression Total Score: 12 023 2:23 PM EDT documented as of this encounter Care Teams Inventory And Pricing Associate Relationship Specialty Start Date End Date Sandra De Jesus FNP [address] [place], [place] [phone] PCP - General Family Medicine 07/06/23 06/23/24 Daniel Krause MD [address] [place] [phone] PCP - General Internal Medicine 06/24/24 07/01/24 Milana Mata DO [address] [place] [address] PCP - General Family Medicine 07/02/24 documented as of this encounter
--- OUTSIDE RECORDS SUMMARY | 2024-12-04 07:38 | XMS_ITS | Encounter Summary ---
Author Organization [email or web address] Address [address] [facility] 7t [place] [address] Care Team Providers Care Drier Tender Name Role Phone Campbell Salguero Primary Care Provider Unavail Sandra Mercado Primary Care Provider + NameDaniel MD Primary Care Provider [phone] Milana Mata DO Primary Care Provider [phone] Reason for Visit * Reason Onset Date Comments Nurse Triage 05/28/2023 Encounter Details Date Type Department Care Team (Late st Contact Info) Description 05/28/2023 Telephone [facility] [address] [place] [address] Campbell Salguero AGNP Nurse Triage Social History [...] 9:23 AM EDT Call to Pt with [place] Infection Control Rn ID [id number] Pt is given message from EVIN Salguero, [...] EDT Triage call Pt gives permission for CARAMEL CANDY MAKER, Lissett, to speak for Pt. PT was [...] accepted this outcome Please contact lissett at [phone] documented in this encounter Plan of Treatment Upcoming Encounters Date Type Department Care Team (Late st Contact Info) Description 12/31/2024 10:45 AM EDT Office Visit [facility] [address] [place] [address] Milana Mata DO [address] [place] [address] documented as of this encounter Visit Diagnoses Diagnosis Benign prostatic hyperplasia with incomplete bladder emptying- Primary documented in this encounter Additional Health Concerns Assessment Noted Time PHQ-9 Depression Total Score: 12 023 2:23 PM EDT documented as of this encounter Care Teams Drier Tender Relationship Specialty Start Date End Date Campbell Salguero AGNP PCP - General Family Medicine 09/25/22 07/05/23 Sandra De Jesus FNP [address] [place] [address] PCP - General Family Medicine 07/06/23 06/23/24 Daniel Krause MD [address] [place] [address] PCP - General Internal Medicine 06/24/24 07/01/24 Milana Mata DO [address] [place] [address] PCP - General Family Medicine 07/02/24 documented as of this encounter
--- OUTSIDE RECORDS SUMMARY | 2024-12-04 07:38 | XMS_ITS | Encounter Summary ---
Author Organization [employer] Address [address] [facility] 7t [place] [address] Care Team Providers Care Skinner Pelts Name Role Phone Sandra De Jesus Primary Care Provider + Name, Daniel العراقي Primary Care Provider [phone] Milana Mata DO Primary Care Provider + [phone] Reason for Visit * Reason Comments Med Refill Encounter Details Date Type Department Care Team ([facility] st Contact Info) Description 10/21/2023 Refill [facility] [address] [place], [place] [phone] Sandra De Jesus FNP [address] [place], [place] [phone] Social History Tobacco Use Types Packs/Day Years [...] Description 12/31/2024 10:45 AM EDT Office Visit [facility] [address] [place] [address] Milana Mata DO [address] [place] [address] documented as of this encounter Visit Diagnoses Not on filedocumented in this encounter Additional Health Concerns Assessment Noted Time PHQ-9 Depression Total Score: 12 023 2:23 PM EDT documented as of this encounter Care Teams Skinner Pelts Relationship Specialty Start Date End Date Sandra De Jesus FNP [address] [place] [address] PCP - General Family Medicine 07/06/23 06/23/24 Daniel Krause MD [address] [place] [address] PCP - General Internal Medicine 06/24/24 07/01/24 Milana Mata DO [address] [place] [address] PCP - General Family Medicine 07/02/24 documented as of this encounter
--- OUTSIDE RECORDS SUMMARY | 2024-12-04 07:38 | XMS_ITS ---
Author Organization [facility] Address [address] [place] [address] Care Team Providers Care Guide Travel Name Role Phone Milana Mata M.D. Primary [...] 11/12/2024 Encounters Encounter Location Date Provider Diagnosis [facility] [address] [place] [address] 11/12/2024 Raphael Powell Jr Generalized abdominal pain [...] Name:Raphael yi Jr, 05/13/2025 10:40:00 AM, [address], [address], [place], [address],
--- OUTSIDE RECORDS SUMMARY | 2024-12-04 07:38 | XMS_ITS | Encounter Summary ---
Author Organization [employer] Address [address] [facility] 7t [place] [address] Care Team Providers Care Water Registrar Name Role Phone Campbell Salguero Primary Care Provider Unavail Sandra Mercado Primary Care Provider + Daniel Krause MD Primary Care Provider [phone] Milana Mata DO Primary Care Provider [phone] Encounter Details Date Type Department Care Team ([facility] Contact Info) Description 04/25/2023 Telephone [facility] [address] [place] [address] Earlene Lange LPN Social History Tobacco Use [...] Upcoming Encounters Date Type Department Care Team ([facility] Contact Info) Description 12/31/2024 10:45 AM EDT Office Visit [facility] [address] [place] [address] Milana Mata DO [address] [place] [address] documented as of this encounter Visit Diagnoses Not on filedocumented in this encounter Additional Health Concerns Assessment Noted Time PHQ-9 Depression Total Score: 12 023 2:23 PM EDT documented as of this encounter Care Teams Water Registrar Relationship Specialty Start Date End Date Campbell Salguero AGNP PCP - General Family Medicine 09/25/22 07/05/23 [place] [address] PCP - General Family Medicine 07/06/23 06/23/24 [place] [address] PCP - General Internal Medicine 06/24/24 07/01/24 Milana Mata DO [address] [place] [address] PCP - General Family Medicine 07/02/24 documented as of this encounter
--- OUTSIDE RECORDS SUMMARY | 2024-12-04 07:38 | XMS_ITS | Patient Health Record ---
Author Organization [facility] Address [address] [place] [address] Care Team Providers Care Potato Bucker Name Role Phone Milana Mata M.D. Primary Care Provider Raphale Cortes Jr Unavailable [phone] ALLERGIES Allergen (clinical drug ingredient) Drug/Non Drug Allergy documented on EMR Reaction Allergy Type Onset Date Status Penicillin Unknown Drug Allergy Active REASON FOR REFERRAL Referring Provider First Name Fátima Referring Provider Last Name Yuliana Referred Organization [facility] Referred Provider Raphael Powell Jr Referred Address [address] [facility],[address],[place], [place],[address],[place] Referred Provider Specialty Gastroentero logy General Notes Katherine Kraus 024 07:59:40 AM EDT > requested a [facility] referral from [facility] for office visit with Dr. Powell on [phone] screening colon Referral Priority Routine MEDICATIONS Medication [...] Problem Hypertension, unspecified type (I10) Active confirmed 16674845 Problem Acute diverticulitis (K57.92) Active confirmed 028012816 Problem Family history of colon cancer (Z80.0) Active confirmed 602784769 Problem Diverticulitis (K57.92) Active confirmed 383510646 Problem Diverticulitis of large intestine without perforation or abscess without bleeding (K57.32) Active confirmed 4966839 Problem Gas bloat syndrome (K92.89) Active confirmed 185320674 VITAL SIGNS Temperature 98.7 degrees Fahrenheit 11/12/2024 Blood pressure diastolic 00 mm Hg 11/12/2024 Height 65 in 11/12/2024 Blood pressure systolic 000 mm Hg 11/12/2024 Weight 224 lb 2 oz lbs 11/12/2024 BMI 37.29 kg/m2 11/12/2024 Encounters Encounter Location Date Provider Diagnosis [facility] [address] [place] [address] 04/14/2024 Raphael Powell Jr [facility] [address] [place] [phone] 07/21/2024 Raphael Powell Jr [facility] [address] [place] [address] 11/12/2024 Raphael Powell Jr Generalized abdominal pain R10.84 [facility] [address] [place] [address] 04/11/2024 Raphael Powell Jr [facility] [address] [place] [address] 07/21/2024 Raphael Powell Jr ASSESSMENTS Encounter Date [...] Name:Raphael yi Jr, 05/13/2025 10:40:00 AM, [address] [facility], [address], [place], [address], Insurance Providers Payer Name Payer Address Payer Phone Subscriber Number Group Number Insured Name Patient Relationship to Insured Coverage Start Date Coverage End Date [place] [id number] [address] [place] [id number] ORAL SOARES Self - patient is the [...]
--- OUTSIDE RECORDS SUMMARY | 2024-12-04 07:38 | XMS_ITS | Encounter Summary ---
Author Organization [employer] Address [address] 7t [place] [address] Care Team Providers Care Cover Assembler Name Role Phone Milana Mata DO Primary Care Provider + [phone] Reason for Visit * Reason Comments Med Refill Encounter Details Date Type Department Care Team ([facility] st Contact Info) Description 11/11/2024 Refill [facility] [address] [place], [place] [phone] Milana Mata DO [address] [facility] [place] [address] Cervical neck pain with evidence of disc [...] Description 12/31/2024 10:45 AM EDT Office Visit [facility] [address] [place] [address] Milana Mata DO [address] [place] [address] documented as of this encounter Visit Diagnoses Diagnosis Cervical neck pain with evidence of disc disease Other and unspecified disc disorder of cervical region documented in this encounter Additional Health Concerns Assessment Noted Time PHQ-9 Depression Total Score: 8 11/15/19 24 9:20 AM EST documented as of this encounter Care Teams Cover Assembler Relationship Specialty Start Date End Date Milana Mata DO [address] [place] [address] PCP - General Family Medicine 07/02/24 documented as of this encounter
--- OUTSIDE RECORDS SUMMARY | 2024-12-04 07:38 | XMS_ITS | Encounter Summary ---
Author Organization [employer] Address [address] [facility] 7t [place] [address] Care Team Providers Care Environmental Scientist Name Role Phone AdolfoMilana Primary Care Provider + [phone] Reason for Visit * Reason Comments Med Refill Encounter Details Date Type Department Care Team ([facility] st Contact Info) Description 09/04/2024 Refill [facility] [address] [place], [place] [phone] Sandra De Jesus FNP [address] [place] [address] Allergic rhinitis due to other allergic trigger, [...] Description 12/31/2024 10:45 AM EDT Office Visit [facility] [address] [place] [address] Milana Mata DO [address] [place] [address] documented as of this encounter Visit Diagnoses Diagnosis Allergic rhinitis due to other allergic trigger, unspecified seasonality documented in this encounter Additional Health Concerns Assessment Noted Time PHQ-9 Depression Total Score: 8 11/15/19 24 9:20 AM EST documented as of this encounter Care Teams Environmental Scientist Relationship Specialty Start Date End Date Milana Mata DO [address] [place] [address] PCP - General Family Medicine 07/02/24 documented as of this encounter
== END 2024-12-04 07:37 | disposition home or self-care (01) ==
LOC: CF 07:36
PROVIDERS: Visit Provider Internal Medicine
DX: Z13.89 Encounter for screening for other disorder (principal)

== ENCOUNTER 2024-12-18 21:51 | Emergency (ER) | payer MEDICAID, SELFPAY ==
--- NOTE | ~2024-12-18 | US_ITS ---
CLINICAL HISTORY: pain, GB, CBD US abdomen limited Comparison: None Findings: The common duct is 3 mm in diameter. The gallbladder is normal. There is positive sonographic Nuno sign, nonspecific considering negative appearance of the gallbladder. Nonspecific pericholecystic fluid. IMPRESSION: No cholelithiasis or evidence of cholecystitis. Nonspecific pericholecystic fluid. This document has been electronically signed by: Onofre Ross MD on 12/19/2024 02:48:26
[2024-12-18 21:55] VITALS: BP 133/76; PULSE 93; RESP 17; TEMP 36.7; O2SAT 97; BMI 36.7
[2024-12-18 22:13] LABS: MANUAL DIFF FLAG NO
[2024-12-18 22:14] LABS: Basophils Percent Auto 0.3 % (0-2); Eosinophils Absolute Auto 0.1 X10*3/uL (0.0-0.4); Eosinophils Percent Auto 1.1 % (0-4); Hematocrit 38.1 % (42.0-52.0); Hemoglobin 12.5 g/dl (14.0-18.0); Imm Gran Abs Auto 0.02 X10*3/uL (0.00-0.03); Imm Gran Pct Auto 0.2 % (0.0-0.4); Lymphocytes Absolute Auto 2.9 X10*3/uL (1.2-4.9); Lymphocytes Percent Auto 28.8 % (20-40); Mean Corpuscular HGB Conc 32.8 g/dl (31.0-36.0); Mean Corpuscular Hemoglobin 25.8 pg (27.0-33.0); Mean Corpuscular Volume 78.6 fL (80.0-98.0); Mean Platelet Volume 10.8 fL (9.4-12.4); Monocytes Absolute Auto 0.7 X10*3/uL (0.1-1.2); Monocytes Percent Auto 7.3 % (2-11); Neutrophils Absolute Auto 6.3 x10*3/uL (2.0-8.3); Neutrophils Percent Auto 62.3 % (45-73); Platelet Count 239 X10*3/uL (160-400); Red Blood Count 4.85 X10*6/uL (4.60-5.80); Red Cell Distribution Width 14.9 % (11.0-16.0); White Blood Count 10.1 X10*3/uL (4.8-10.8)
[2024-12-18 22:25] LABS: Anion Gap 14 (12-20); Blood Urea Nitrogen 12 mg/dL (9-16); Calcium 9.8 mg/dL (8.4-10.2); Carbon Dioxide 27 mmol/L (22-29); Chloride 103 mmol/L (96-108); Creatinine Clr Calc Pharmacy 114.9; Estimated Glomerular Filt Rate > 60; Glucose Random 110 mg/dL (60-115); Lipase 17 U/L (8-78); Potassium 3.7 mmol/L (3.3-5.1); Sodium 140 mmol/L (135-145)
[2024-12-19] MEDS: Morphine Sulfate 4 MG/ML CARTRIDGE IVPUSH (01:40)
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
[2024-12-19] MEDS: Sucralfate Oral Suspension 1 GM/10 ML ORAL.SUSP PO (04:30)
[2024-12-19 04:31] VITALS: BP 127/77; PULSE 80; RESP 16; TEMP 36.3; O2SAT 95
[2024-12-19 04:35] LABS: Alanine Aminotransferase 24 U/L (0-40); Albumin Level 4.5 g/dL (3.5-5.0); Alkaline Phosphatase 102 U/L (39-117); Aspartate Amino Transferase 24 U/L (5-37); Bilirubin Direct 0.2 mg/dL (0.0-0.5); Bilirubin Total 0.6 mg/dL (0.0-1.0); Total Protein 8.3 g/dL (6.5-8.0)
--- NOTE | 2024-12-19 05:18 | PC.NURSE ---
iv removed at discharge pt verbalized understanding of discharge plan pt ambulatory at discharge
[2024-12-19 05:20] VITALS: BP 127/77; PULSE 80; RESP 16; TEMP 36.3; O2SAT 95
== END 2024-12-19 05:21 | disposition home or self-care (01) ==
PROVIDERS: Physician Assistant Medical; Emergency Provider Emergency Medicine
DX: K21.9 Gastro-esophageal reflux disease without esophagitis (principal); R10.2 Pelvic and perineal pain; I10 Essential (primary) hypertension; Z79.899 Other long term (current) drug therapy
CPT/HCPCS: 36415; 76705; 80048; 80076; 83690; 85025; 96374; 99284; J2270

== ENCOUNTER → 2024-12-19 01:04 | Outpatient (BNV) | payer MEDICAID, SELFPAY | PROVIDERS: Emergency Provider Emergency Medicine; Visit Provider Radiology Diagnostic Radiology | DX: K82.8 Other specified diseases of gallbladder (principal) | CPT/HCPCS: 76705 ==

== ENCOUNTER 2024-12-31 12:20 | Outpatient (REF) | payer MEDICAID, SELFPAY ==
[2024-12-31 14:10] LABS: Estimated Average Glucose 140 mg/dL; Hemoglobin A1c % 6.5 % (<6.0)
--- OUTSIDE RECORDS SUMMARY | 2024-12-31 14:23 | XMS_ITS | Encounter Summary ---
Author Organization [employer] Address [address] [facility] 7t [place] [address] Care Team Providers Care Speech Writer Name Role Phone Sandra De Jesus Primary Care Provider [phone] Jimi, Daniel العراقي Primary Care Provider [phone] Milana Mata DO Primary Care Provider + [phone] Reason for Visit * Reason Onset Date Comments EEG TECHNICIAN Reevaluation 05/06/2024 Encounter Details Date Type Department Care Team (Late st Contact Info) Description 05/06/[address] [facility] MEDICINE [address] [place], [place] [phone] Sandra De Jesus FNP [address], [place] [phone] EEG TECHNICIAN Reevaluation Social History Tobacco Use Types Packs/Day [...] 05/13/2024 9:28 AM EDT Return call from [email or web address], explain that client want to re-start foster care program, Isidra advised to fax form to [facility], provider will review it and will contact agency if needed anything. Isidra verbally greed and understood. * Telephone Encounter - Alexys Orozco RN - 05/13/2024 9:09 AM EDT T/C x 2 am to [phone] for isidra for below message, No answer. District Attorney sent message to call back on [phone]. T/C to lissett to inform that [facility] is trying to call [employer] / EEG TECHNICIAN company for below message , but not able to contact them. LVM to call back on [phone]. Lissett states she is going to call them, Lissett also informed if EEG TECHNICIAN company / [employer] is missing any sign please fax documents on [phone] to get sign from PCP. Lissett states she is going to call to company. * Telephone Encounter - Lorena Waldrop - 05/12/2024 4:06 PM EDT Tc from pt spouse regarding message below. * Telephone Encounter - Alexys Orozco RN - 05/12/2024 10:05 AM EDT T/C to [phone] for isidra for below message, No answer. District Attorney sent message to call back on [phone]. * Telephone Encounter - Humberto Arauz - 05/12/2024 9:52 AM EDT Tc from [facility] requesting a status on PCP order form. Please see notes. Please contact at [phone] ( ask for siidra ) * Telephone Encounter - Brenda Gifford - 05/09/2024 12:35 PM EDT Tc from pt and Lissett requesting a call back in regards below message. Please contact at [phone] * Telephone Encounter - Alexys Orozco RN - 05/06/2024 4:21 PM EDT T/C to pt. For below message, pt. States his EEG TECHNICIAN company called him and states PCP discontinue the service for EEG TECHNICIAN services, pt. States he is having upcoming surgery and needs EEG TECHNICIAN services. RN cannotsee any notes that says [...] documented as of this encounter Care Teams Speech Writer Relationship Specialty Start Date End Date Sandra De Jesus FNP [address] [place] [address] PCP - General Family Medicine 07/06/23 06/23/24 Name, MD Daniel [address] [place] [address] PCP - General Internal Medicine 06/24/24 07/01/24 Milana Mata DO [address] [place] [address] PCP - General Family Medicine 07/02/24 documented as of this encounter
--- OUTSIDE RECORDS SUMMARY | 2024-12-31 14:23 | XMS_ITS | Encounter Summary ---
Author Organization [employer] Address [address] [facility] 7t [place] [address] Care Team Providers Care Talent Associate Name Role Phone Milana Mata DO Primary Care Provider + [phone] Encounter Details Date Type Department Care Team ([facility] st Contact Info) Description 12/02/2024 Refill [facility] MEDICINE [address] [place] [address] Milana Mata DO [address] [place], [place] [phone] Hyperlipidemia, unspecified hyperlipidemia type Social History Tobacco [...] documented as of this encounter Care Teams Talent Associate Relationship Specialty Start Date End Date Milana Mata DO [address] [place] [address] PCP - General Family Medicine 07/02/24 documented as of this encounter
--- OUTSIDE RECORDS SUMMARY | 2024-12-31 14:23 | XMS_ITS | Encounter Summary ---
Author Organization [employer] Address [address] 7t [place] [address] Care Team Providers Care Sales And Marketing Agent Name Role Phone Sandra De Jesus Primary Care Provider + Name, Daniel العراقي Primary Care Provider [phone] Milana Mata DO Primary Care Provider [phone] Encounter Details Date Type Department Care Team (Late st Contact Info) Description 05/23/2024 Orders Only [facility] MED & PEDS [address] [place] [address] Sandra De Jesus FNP [address] [place] [address] Cervical neck pain with evidence of disc [...] documented as of this encounter Care Teams Sales And Marketing Agent Relationship Specialty Start Date End Date Sandra De Jesus FNP [address] [place] [address] PCP - General Family Medicine 07/06/23 06/23/24 [place] [address] PCP - General Internal Medicine 06/24/24 07/01/24 Milana Mata DO [address] [place] [address] PCP - General Family Medicine 07/02/24 documented as of this encounter
--- OUTSIDE RECORDS SUMMARY | 2024-12-31 14:23 | XMS_ITS | Encounter Summary ---
Author Organization [employer] Address [address] [facility] 7t [place] [address] Care Team Providers Care Certified Pesticide Applicator Name Role Phone Sandra De Jesus Primary Care Provider +[phone] Name, Daniel العراقي Primary Care Provider [phone] Milana Mata DO Primary Care Provider + [phone] Encounter Details Date Type Department Care Team (Late st Contact Info) Description 02/05/[address] [facility] MEDICINE [address] [place] [address] Sandra De Jesus FNP [address] [place] [address] Social History Tobacco Use Types Packs/Day Years [...] documented as of this encounter Care Teams Certified Pesticide Applicator Relationship Specialty Start Date End Date Sandra De Jesus FNP [address] [place] [address] PCP - General Family Medicine 07/06/23 06/23/24 Daniel Krause MD [address] [place] [address] PCP - General Internal Medicine 06/24/24 07/01/24 Milana Mata DO [address] [place] [address] PCP - General Family Medicine 07/02/24 documented as of this encounter
--- OUTSIDE RECORDS SUMMARY | 2024-12-31 14:24 | XMS_ITS | Encounter Summary ---
Author Organization [employer] Address [address] [facility] 7t [place] [address] Care Team Providers Care Base Loader Name Role Phone Campbell Salguero Primary Care Provider Unavail Sandra Mercado Primary Care Provider + NameDaniel MD Primary Care Provider [phone] Milana Mata DO Primary Care Provider [phone] Reason for Visit * Reason Onset Date Comments Nurse Triage 05/28/2023 Encounter Details Date Type Department Care Team (Late st Contact Info) Description 05/28/2023 Telephone [facility] MEDICINE [address] [place] [address] Campbell Salguero AGNP Nurse Triage Social History [...] 9:23 AM EDT Call to Pt with [place] [employer] [place] [id number] Pt is given message from EVIN Salguero, [...] EDT Triage call Pt gives permission for DOPE SPRAYER, Lissett, to speak for Pt. PT was [...] accepted this outcome Please contact lissett at [phone] documented in this encounter Plan of Treatment Not on file documented as of this encounter Visit Diagnoses Diagnosis Benign prostatic hyperplasia with incomplete bladder emptying- Primary documented in this encounter Additional Health Concerns Assessment Noted Time PHQ-9 Depression Total Score: 12 023 2:23 PM EDT documented as of this encounter Care Teams Base Loader Relationship Specialty Start Date End Date Campbell Salguero AGNP PCP - General Family Medicine 09/25/22 07/05/23 Sandra De Jesus FNP [address] [place] [address] PCP - General Family Medicine 07/06/23 06/23/24 Name, MD Daniel [address] [place] [address] PCP - General Internal Medicine 06/24/24 07/01/24 Milana Mata DO [address] [place] [address] PCP - General Family Medicine 07/02/24 documented as of this encounter
--- OUTSIDE RECORDS SUMMARY | 2024-12-31 14:24 | XMS_ITS ---
Author Organization [facility] Address [address] [place] [address] Care Team Providers Care Bottom Hoop Driver Name Role Phone Adolfo Vivar, Milana Primary Care Provider Fabiola vailaRaphael Esparza Jr Unavailable REASON FOR VISIT Patient presents today for diverticulitis Encounters Encounter Location Date Provider Diagnosis [facility] [address] [place] [address] 07/21/2024 Raphael Powell Jr Plan Of Treatment Next Appt Details Provider Name:Raphael yi Jr, 05/13/2025 10:40:00 AM, [address], [address], [place], [address], Progress Notes * ORAL SOARESDOB:1970 (54 yo M)Acc No.[id number]:07/21/2024 Progress Notes Patient:?ORAL SOARES Provider:?Raphael Powell MD :1970???Age:54 Y???Sex:Male Gagan e:07/21/2024 Address:[address] [place] [address], [place], [place] Pcp:Milana Mata M.D. Subjective: * Chief Complaints: * ???1. Patient presents today for diverticulitis. * Medical History:? Objective: * Vitals:? Assessment: Plan: * Treatment: * * The named appointment provid er may or may not be the originator of this progress note, and it is not deemed complete until electronically signed by the appointment provider. Sign off status: Pending * Provider:?Raphael Powell MD Date:?0 07/21/2024 Generated for Phil walter/Filippo/Paolo on:?12/31/2024 02:24 PM EDT
--- OUTSIDE RECORDS SUMMARY | 2024-12-31 14:24 | XMS_ITS | Encounter Summary ---
Author Organization [employer] Address [address] [facility] 7t [place] [address] Care Team Providers Care Fruit Thinner Machine Operator Name Role Phone AdolfoMilana Primary Care Provider + [phone] Reason for Visit * Reason Comments Med Refill Encounter Details Date Type Department Care Team ([facility] st Contact Info) Description 12/24/2024 Refill [facility] MED[facility]INE [address] [place] [address] Sandra De Jesus FNP [address] [place] [address] Anxiety state Social History Tobacco Use Types Packs/Day Years [...] as of this encounter Visit Diagnoses Diagnosis Anxiety state Anxiety state, unspecified documented in this encounter Additional Health Concerns Assessment Noted Time PHQ-9 Depression Total Score: 8 11/15/19 9:20 AM EST documented as of this encounter Care Teams Fruit Thinner Machine Operator Relationship Specialty Start Date End Date Milana Mata DO [address] [place] [address] PCP - General Family Medicine 07/02/24 documented as of this encounter
--- OUTSIDE RECORDS SUMMARY | 2024-12-31 14:24 | XMS_ITS | Encounter Summary ---
Author Organization [employer] Address [address] [facility] 7t [place] [address] Care Team Providers Care First Line Production Supervisor Name Role Phone Sandra De Jesus Primary Care Provider + Jimi, Daniel العراقي Primary Care Provider [phone] Milana Mata DO Primary Care Provider [phone] Reason for Visit * Reason Comments Med Refill Encounter Details Date Type Department Care Team (Late st Contact Info) Description 09/30/2023 Refill [facility] MEDICINE [address] [place] [address] Campbell Salguero AGNP Social History Tobacco Use [...] documented as of this encounter Care Teams First Line Production Supervisor Relationship Specialty Start Date End Date Sandra De Jesus FNP [address] [place] [address] PCP - General Family Medicine 07/06/23 06/23/24 Daniel Krause MD [address] [place] [address] PCP - General Internal Medicine 06/24/24 07/01/24 Milana Mata DO [address] [place] [address] PCP - General Family Medicine 07/02/24 documented as of this encounter
--- OUTSIDE RECORDS SUMMARY | 2024-12-31 14:24 | XMS_ITS ---
Author Organization [facility] Address [address] [place] [address] Care Team Providers Care Plant Guide Name Role Phone Milana Mata M.D. Primary Care Provider Fabiola vailaRaphael Esparza Jr Unavailable [phone] REASON FOR VISIT Pt no show Encounters Encounter Location Date Provider Diagnosis [facility] [address] [place] [address] 07/21/2024 Raphael Powell Jr Plan Of Treatment Next Appt Details Provider Name:Raphael yi Jr, 05/13/2025 10:40:00 AM, [address], [address], [place], [address], Progress Notes * ORAL SOARESDOB:1970 (54 yo M)Acc No.[id number]:07/21/2024 Patient:?ORAL SOARES :1970???Age:54 Y???Sex:Male Address:[address] [place] [address], [place], [address] * true * Date:? Generated for Print[employer] jose angel/Filippo/eTransmitting on:?12/31/2024 08:47 AM EDT
--- OUTSIDE RECORDS SUMMARY | 2024-12-31 14:24 | XMS_ITS | Encounter Summary ---
Author Organization [employer] Address [address] [facility] [address] 7[address] [place] [address] Care Team Providers Care Manager Applied Name Role Phone Sandra De Jesus Primary Care Provider + Name, Daniel العراقي Primary Care Provider [phone] Milana Mata DO Primary Care Provider [phone] Encounter Details Date Type Department Care Team (Late st Contact Info) Description 09/03/2023 Abstract [facility] MEDICINE [address] [place] [address] Iram Resendiz Social History Tobacco Use Types [...] as of this encounter Care Teams Manager Applied Relationship Specialty Start Date End Date Sandra De Jesus FNP [address] [place] [address] PCP - General Family Medicine 07/06/23 06/23/24 Daniel Krause MD [address] [place] [address] PCP - General Internal Medicine 06/24/24 07/01/24 Milana Mata DO [address] [place] [address] PCP - General Family Medicine 07/02/24 documented as of this encounter
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
--- OUTSIDE RECORDS SUMMARY | 2024-12-31 14:24 | XMS_ITS | Encounter Summary ---
Author Organization [employer] Address [address] [facility] 7t [place] [address] Care Team Providers Care Senior It Recruiter Name Role Phone Campbell Salguero Primary Care Provider Unavail Sandra Mercado Primary Care Provider + Daniel Krause MD Primary Care Provider [phone] Milana Mata DO Primary Care Provider +[phone] Encounter Details Date Type Department Care Team (Late st Contact Info) Description 04/25/2023 Telephone [facility] MEDICINE [address] [place] [address] Earlene Lange LPN Social History Tobacco Use [...] documented as of this encounter Care Teams Senior It Recruiter Relationship Specialty Start Date End Date Campbell Salguero AGNP PCP - General Family Medicine 09/25/22 07/05/23 Sandra De Jesus FNP [address] [place] [address] PCP - General Family Medicine 07/06/23 06/23/24 Daniel Krause MD [address] [place] [address] PCP - General Internal Medicine 06/24/24 07/01/24 Milana Mata DO [address] [place] [address] PCP - General Family Medicine 07/02/24 documented as of this encounter
--- OUTSIDE RECORDS SUMMARY | 2024-12-31 14:24 | XMS_ITS | Encounter Summary ---
Author Organization [employer] Address [address] [facility] 7t [place] [address] Care Team Providers Care Technologies Division Chair Name Role Phone Sandra De Jesus Primary Care Provider + Jimi, Daniel العراقي Primary Care Provider [phone] Milana Mata DO Primary Care Provider [phone] Reason for Visit * Reason Comments Med Refill Encounter Details Date Type Department Care Team ([facility] st Contact Info) Description 08/01/2023 Refill [facility] [address] [place] [address] Ryan Nation MD [address] [place] [address] Social History Tobacco Use Types Packs/Day Years [...] documented as of this encounter Care Teams Technologies Division Chair Relationship Specialty Start Date End Date Sandra De Jesus FNP [address] [place] [address] PCP - General Family Medicine 07/06/23 06/23/24 Daniel Krause MD [address] [place] [address] PCP - General Internal Medicine 06/24/24 07/01/24 Milana Mata DO [address] [place] [address] PCP - General Family Medicine 07/02/24 documented as of this encounter
--- OUTSIDE RECORDS SUMMARY | 2024-12-31 14:24 | XMS_ITS | Encounter Summary ---
Author Organization [employer] Address [address] [facility] 7t [place] [address] Care Team Providers Care Supplier Engineer Name Role Phone Milana Mata DO Primary Care Provider + [phone] Reason for Visit * Reason Comments Med Refill Encounter Details Date Type Department Care Team ([facility] st Contact Info) Description 12/10/2024 Refill [facility] [address] [place] [address] Milana Mata DO [address] [place] [address] Cervical neck pain with evidence of disc [...] documented as of this encounter Care Teams Supplier Engineer Relationship Specialty Start Date End Date Milana Mata DO [address] [place] [address] PCP - General Family Medicine 07/02/24 documented as of this encounter
--- OUTSIDE RECORDS SUMMARY | 2024-12-31 14:24 | XMS_ITS | Encounter Summary ---
Author Organization [employer] Address [address] [facility] 7t [place] [address] Care Team Providers Care Restrictive Preparation Operator Name Role Phone Milana Mata Primary Care Provider [phone] Encounter Details Date Type Department Care Team (Latest Contact Info) Description 12/31/2024 Travel Social History Tobacco Use Types Packs/Day Years Used Date Smoking Tobacco: Never Passive Smoke Exposure: Never Smokeless Tobacco: Never Alcohol Use Standard Drinks/Week Comments Not Currently 0 (1 standard drink = 0.6 oz pur e alcohol) Depression Answer Date Recorded Patient Health Questionnaire-9 Score 0 12/31/2024 Patient Health Questionnaire-9 Score 0 12/31/2024 Last PHQ-9: Questionnaire Data Not on file 0 12/31/2024 Housing Stability Answer Date Recorded What is [...] Answer Date Recorded Patient Health Questionnaire-2 Score 0 12/31/2024 Internet Access Answer Date Recorded Internet Access [...] Assessment Noted Time PHQ-9 Depression Total Score: 0 01/01/20 25 10:51 AM EDT documented as of this encounter Care Teams Restrictive Preparation Operator Relationship Specialty Start Date End Date Milana Mata DO [address] [place] [address] PCP - General Family Medicine 07/02/24 documented as of this encounter
--- OUTSIDE RECORDS SUMMARY | 2024-12-31 14:24 | XMS_ITS | Encounter Summary ---
Author Organization [employer] Address [address] [place] [address] 7t [place] [address] Care Team Providers Care Pomology Teacher Name Role Phone Jose M Campbell VERONICA Primary Care Provider Unavail Sandra MercadoP Primary Care Provider [phone] NameDaniel MD Primary Care Provider [phone] Milana Mata DO Primary Care Provider + [phone] Reason for Visit * Reason Comments Med Refill Encounter Details Date Type Department Care Team (Late st Contact Info) Description 07/04/2023 Refill [facility] [address] [place], [place] [phone] Name, MD Daniel [address] [place] [address] Social History Tobacco Use Types Packs/Day Years [...] documented as of this encounter Care Teams Pomology Teacher Relationship Specialty Start Date End Date Campbell Salguero AGNP PCP - General Family Medicine 09/25/22 07/05/23 Sandra De Jesus FNP [address] [place] [address] PCP - General Family Medicine 07/06/23 06/23/24 Daniel Krause MD [address] [place] [address] PCP - General Internal Medicine 06/24/24 07/01/24 Milana Mata DO [address] [place] [address] PCP - General Family Medicine 07/02/24 documented as of this encounter
--- OUTSIDE RECORDS SUMMARY | 2024-12-31 14:24 | XMS_ITS | Encounter Summary ---
Author Organization [employer] Address [address] [facility] 7t [place] [address] Care Team Providers Care Snow Maker Name Role Phone AdolfoMilana Primary Care Provider + [phone] Reason for Visit * Reason Comments Med Refill Encounter Details Date Type Department Care Team ([facility] st Contact Info) Description 09/04/2024 Refill [facility] [address] [place], [place] [phone] Sandra De Jesus FNP [address] [place] [address] Allergic rhinitis due to other allergic trigger, [...] documented as of this encounter Care Teams Snow Maker Relationship Specialty Start Date End Date Milana Mata DO [address] [place] [address] PCP - General Family Medicine 07/02/24 documented as of this encounter
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
--- OUTSIDE RECORDS SUMMARY | 2024-12-31 14:24 | XMS_ITS | Encounter Summary ---
Author Organization [employer] Address [address] [facility] 7t [place] [address] Care Team Providers Care Intermediate Teacher Name Role Phone Sandra De Jesus Primary Care Provider + Name, Daniel العراقي Primary Care Provider [phone] Milana Mata DO Primary Care Provider + [phone] Reason for Visit * Reason Comments Med Refill Encounter Details Date Type Department Care Team ([facility] st Contact Info) Description 10/21/2023 Refill [facility] [address] [place], [place] [phone] Sandra De Jesus FNP [address] [place], [place] [phone] Social History Tobacco Use Types Packs/Day Years [...] documented as of this encounter Care Teams Intermediate Teacher Relationship Specialty Start Date End Date Sandra De Jesus FNP [address] [place] [address] PCP - General Family Medicine 07/06/23 06/23/24 Daniel Krause MD [address] [place] [address] PCP - General Internal Medicine 06/24/24 07/01/24 Milana Mata DO [address] [place] [address] PCP - General Family Medicine 07/02/24 documented as of this encounter
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
--- OUTSIDE RECORDS SUMMARY | 2024-12-31 14:24 | XMS_ITS | Encounter Summary ---
Author Organization [employer] Address [address] [facility] 7t [place] [address] Care Team Providers Care Storage Consultant Name Role Phone Milana Mata DO Primary Care Provider + [phone] Reason for Visit * Reason Comments Med Refill Encounter Details Date Type Department Care Team ([facility] st Contact Info) Description 12/01/2024 Refill [facility] [address] [place] [address] Milana Mata DO [address] [place] [address] Hyperlipidemia, unspecified hyperlipidemia type Social History Tobacco [...] documented as of this encounter Care Teams Storage Consultant Relationship Specialty Start Date End Date Milana Mata DO [address] [place] [address] PCP - General Family Medicine 07/02/24 documented as of this encounter
--- OUTSIDE RECORDS SUMMARY | 2024-12-31 14:24 | XMS_ITS | Encounter Summary ---
Author Organization [employer] Address [address] [facility] 7t [place] [address] Care Team Providers Care Fish Roe Processor Name Role Phone Salguero Campbell VERONICA Primary Care Provider Unavail Sandra Mercado Primary Care Provider + Daniel Krause MD Primary Care Provider [phone] Milana Mata DO Primary Care Provider [phone] Reason for Visit * Reason Comments Med Refill Encounter Details Date Type Department Care Team ([facility] st Contact Info) Description 04/05/2023 Refill [facility] [address] [place], [place] [phone] Evie Francisco MD [address] [place] [address] Allergic rhinitis, unspecified seasonality, unspecified trigger Social [...] documented as of this encounter Care Teams Fish Roe Processor Relationship Specialty Start Date End Date Campbell Salguero AGNP PCP - General Family Medicine 09/25/22 07/05/23 Sandra De Jesus FNP [address] [place] [address] PCP - General Family Medicine 07/06/23 06/23/24 Daniel Krause MD [address] [place] [address] PCP - General Internal Medicine 06/24/24 07/01/24 Milana Mata DO [address] [place] [address] PCP - General Family Medicine 07/02/24 documented as of this encounter
--- OUTSIDE RECORDS SUMMARY | 2024-12-31 14:24 | XMS_ITS | Clinical Summary ---
Author Organization [employer] Address [address] [facility] [address] [place] [address] Care Team Providers Care Trench Pipe Layer Helper Name Role Phone AdolfoMilana Primary Care Provider [phone] Allergies Active Allergy Reactions Criticality Noted Date Comments Pablo-Containing Products Anaphylaxis High 04/20/2023 Fruit Extracts 10/10/2023 Pt states he is allergic to any fruit that has seeds Penicillins Rash High 10/12/2010 [place] Oil 08/21/2024 Medications OXcarbazepine (Trileptal) 300 MG tablet Take 1 tablet by mouth in the morning and at bedtime. 012 Active QUEtiapine (SEROquel) 50 MG tablet Take 1 tablet by mouth 1 (one) time each day. Active sertraline (Zoloft) 50 MG tablet Take 1 tablet by mouth in the morning. Active alfuzosin ER (Uroxatral) 10 MG 24 hr tablet Take 10 mg by mouth at bedtime. 023 Active EPINEPHrine (Epipen) 0.3 MG/0.3ML injection syringe Inject 0.3 mg into the shoulder, thigh, or buttocks. 2 each 1 023 Active amLODIPine (Norvasc) 5 MG tablet TAKE 1 TABLET BY MOUTH EVERY MORNING 90 tablet 5 024 Active hydrocortisone (Anusol-HC) 25 MG suppository Insert 25 mg into the rectum in the morning. 024 Active gabapentin (Neurontin) 100 MG capsule Take 1 capsule (100 mg) by mouth every 8 (eight) hours. 90 capsule 11 024 2024 Active omeprazole (PriLOSEC) [address] capsuleIndication s:Gastroesophagea l reflux disease, unspecified whether esophagitis present Take 1 capsule (20 mg) by mouth before breakfast and before evening meal. 180 capsule 3 024 2024 Active polycarbophil (FiberCon) 625 MG tablet Take 1 tablet (625 mg) by mouth 2 times daily. 180 tablet 3 024 2024 Active Saccharomyces boulardii (probiotic) 250 MG capsule Take 1 capsule (250 mg) by mouth Once per day. 90 capsule 3 024 2024 Active apixaban (Eliquis) 5 MG tablet TAKE 1 TABLET BY MOUTH TWICE DAILY IN THE MORNING AND IN THE EVENING 60 tablet 5 024 Active rosuvastatin (Crestor) 40 MG tabletIndications :Hyperlipidemia, unspecified hyperlipidemia type Take 1 tablet (40 mg) by mouth at bedtime. 90 tablet Active losartan-hydroCHL OROthiazide (Hyzaar) 100-25 MG tablet TAKE 1 TABLET BY MOUTH EVERY MORNING 90 tablet 3 Active cholecalciferol VITAMIN D (Vitamin D-3) 50 MCG (1999 UT) tabletIndications :Anxiety state TAKE 1 TABLET BY MOUTH EVERY MORNING 90 tablet 3 Active sucralfate (Carafate) 1 GM/10ML suspension SWISH AND SWALLOW 10 ML FOUR TIMES DAILY NEEDED FOR HEARTBURN USE AFTER FOOD OR DRINK Active cetirizine (ZyrTEC) 10 MG tabletIndications :Seasonal allergic rhinitis, unspecified trigger TAKE 1 TABLET BY MOUTH ONCE DAILY 90 tablet 1 Active baclofen (Lioresal) 10 MG tablet Take 1 tablet (10 mg) by mouth if needed in the morning, at noon, and at bedtime for muscle spasms. 60 tablet 3 025 2025 Active acetaminophen (Tylenol 8 Hour) 650 MG ER tablet Take 1 tablet (650 mg) by mouth every 8 (eight) hours if needed for mild pain. Do not crush, chew, or split. 60 tablet 1 025 2024 Active traMADol (Ultram) 50 MG tabletIndications :Chronic neck and back pain Take 1 tablet (50 mg) by mouth if needed in the morning and at bedtime for severe pain. 56 tablet 025 Active Diclofenac Sodium 1 % gel Apply 2 g topically if needed in the morning, at noon, in the evening, and at bedtime (pain). 150 g 3 025 Active albuterol 108 (90 Base) MCG/ACT inhaler Inhale 2 puffs every 4 (four) hours if needed for shortness of breath or wheezing. 18 g 1 025 Active fluticasone (Flonase) 50 MCG/ACT nasal spray Administer 2 sprays into each nostril Once per day. 48 g 3 025 Active Ketotifen Fumarate (Alaway) 0.035 % solution Administer 1 drop into affected eye(s) if needed in the morning and at bedtime (allergies/it linwood). 10 mL 1 025 Active cloNIDine (Catapres) 0.2 MG tablet Take 1 tablet by mouth. 015 2024 Discontinued albuterol 108 (90 Base) MCG/ACT inhaler Inhale 2 puffs every 4 (four) hours if needed for shortness of breath or wheezing. 18 g 1 023 2024 Discontinued(R eorder (will not trigger notification to Pharmacy)) cholecalciferol (Vitamin D-3) 50 MCG (1999 UT) tabletIndications :Anxiety state TAKE 1 TABLET BY MOUTH EVERY MORNING 90 tablet 3 024 2024 Discontinued losartan-hydroCHL OROthiazide (Hyzaar) 100-25 MG tablet TAKE 1 TABLET BY MOUTH EVERY MORNING 90 tablet 3 024 2024 Discontinued fluticasone (Flonase) 50 MCG/ACT nasal sprayIndications: Allergic rhinitis due to other allergic trigger, unspecified seasonality INSTILL 2 SPRAYS IN EACH NOSTRIL ONCE DAILY NEEDED 48 g 1 024 2024 Discontinued(R eorder (will not trigger notification to Pharmacy)) baclofen (Lioresal) 10 MG tablet Take 1 tablet (10 mg) by mouth 2 times daily. 60 tablet 024 2024 Discontinued(R eorder (will not trigger notification to Pharmacy)) rosuvastatin (Crestor) 40 MG tabletIndications :Hyperlipidemia, unspecified hyperlipidemia type TAKE 1 TABLET BY MOUTH AT BEDTIME 90 tablet 024 2024 Discontinued(R eorder (will not trigger notification to Pharmacy)) cetirizine (ZyrTEC) 10 MG tabletIndications :Allergic rhinitis, unspecified seasonality, unspecified trigger TAKE 1 TABLET BY MOUTH ONCE DAILY 90 tablet 1 024 2024 Discontinued(R eorder (will not trigger notification to Pharmacy)) traMADol (Ultram) 50 MG tabletIndications :Cervical neck pain with evidence of disc disease Take 1 tablet (50 mg) by mouth every 6 (six) hours if needed for severe pain for up to 7 days. 28 tablet 025 2024 Discontinued rosuvastatin (Crestor) 40 MG tabletIndications :Hyperlipidemia, unspecified hyperlipidemia type TAKE 1 TABLET BY MOUTH AT BEDTIME 90 tablet 025 2024 Discontinued(M ed list cleanup (will not trigger notification to Pharmacy)) traMADol (Ultram) 50 MG tabletIndications :Cervical neck pain with evidence of disc disease TAKE 1 TABLET BY MOUTH EVERY 6 HOURS NEEDED FOR SEVERE PAIN FOR UP TO 7 DAYS 28 tablet 025 2024 Discontinued(R eorder (will not trigger notification [...] there were small polyps. Eye exam: Saw assistant art director 8 months ago, [facility]. Does not wear glasses. Dental home: upcoming appointment next month at [facility]. Allergies 04/20/2023 07/24/2024 Assessment & Plan (04/20/2023 [...] was prudent to send him to an public health policy analyst to get a comprehensive and accurate list [...] Encounters Date Type Department Care Team Description 12/31/2024 10:45 AM EDT Office Visit [facility] [address] [place] [address] Milana Mata DO Essential hypertension (Primary Dx); Other hyperlipidemia; Prediabetes; Major depression, recurrent, chronic (CMS/HCC); Seizure disorder (CMS/HCC); Clotting disorder (CMS/HCC); Polyarthralgia; Chronic abdominal pain; Obstructive sleep apnea; Seasonal allergic rhinitis, unspecified trigger; Chronic neck and back pain; Healthcare maintenance 12/31/2024 Travel 12/24/2024 Refill [facility] [address] [place], [place] [phone] Sandra De Jesus FNP Anxiety state 12/10/2024 Refill [facility] [address] [place] [address] Milana Mata DO Cervical neck pain with evidence of disc disease 12/02/2024 Refill [facility] [address] [place], [place] [phone] Milana Mata DO Hyperlipidemia, unspecified hyperlipidemia type 12/01/2024 Refill [facility] [address] [place] [address] Milana Mata DO Hyperlipidemia, unspecified hyperlipidemia type 11/17/2024 Telephone [facility] [address] [place] [address] Lorri HortenciaGERALD carbajal Recall Appt. 11/17/2024 Travel 11/11/2024 Refill [facility] [address] [place] [address] Milana Mata DO Cervical neck pain with evidence of disc disease 11/11/2024 Refill [facility] [address] [place], [place] [phone] Milana Mata DO Cervical neck pain with evidence of disc disease 10/17/2024 Orders Only [facility] External Provider, [facility] 10/06/2024 Refill [facility] [address] [place], [place] [phone] Milana Mata DO Cervical neck pain with evidence of disc disease from Last 3 Months Immunizations Name Administration Dates Next Due Hep B, adult 12/31/2024, 2,05/30/2011,2010 Influenza Injectable Quadriv alant Preservative Free IIV4 [...] Mass Index 38.27 12/31/2024 10:48 AM EDT Plan of Treatment Health Maintenance Due Date Last Done Comments CT Colonography 1969 Dental Oral Exam 1969 Dental Prophylaxis 1969 Dental X-Ray: Full Mouth 1969 FIT DNA/Cologuard 1969 Sigmoidoscopy 1969 FIT 11/15/2024 11/15/2023 FOBT 11/15/2024 11/15/2023 SDOH Screening 04/25/2025 04/25/2024 Dental X-Ray: Bitewings 08/22/2025 08/21/2024 Alcohol/Substance Use Screening 12/31/2025 12/31/2024 Depression Screening 12/31/2025 12/31/2024, 01/01/20 Diabetes: Hemoglobin A1C 12/31/2025 025, 07/28/2024, 04/18/2024, Additional history exists Tobacco Screening 12/31/2025 12/31/2024 Colonoscopy 04/19/2028 04/19/2023 Colorectal Cancer Screening 04/19/2028 Lipid Panel 07/28/2029 07/28/2024, 06/3 , 08/30/2022, Additional history exists DTaP/Tdap/Td Vaccines (4 - Td or Tdap) 12/01/2032 12/01/2022, 09/09/2012, 01/06/2011 RSV Patients and Patients Aged 60 years or older (1 - 1-dose 75+ series) 02/05/2044 Zoster Vaccines Completed 12/01/2022, 09/29/2022 Pneumococcal Vaccine: 50+ Years Completed 10/10/2023 COVID-19 Vaccine Completed 07/24/2024, , 02/02/2021, Additional history exists Influenza Vaccine Completed 07/24/2024, , 09/29/2022, Additional history exists HIV Screening Completed 07/28/2024, 09/20/2021 Hepatitis C Screening Completed 07/28/2024, 023 Hepatitis B Vaccines Completed 12/31/2024, 12/05/2011, 05/30/2011, Additional history exists HIB Vaccines Aged Out No longer eligi [...] A1C Routine 12/31/2024 12:22 PM EDT Prediabetes MR LUMBAR SPINE WO CONTRAST Routine 10/17/2024 7:10 PM EST BITEWING - SINGLE RADIOGRAPHIC IMAGE [...] Recently Relevant to Health Maintenance Results * (ABNORMAL) Hemoglobin A1c (12/31/2024 12:22 PM EDT) Hemoglobin A1c 6.5(H) <6.0 % [facility] Comment:Hemoglobin A1C Refer ence Range Adults: 4.8 - 6.0 % Non diabetic: < 6.0 % Goal: < 7.0 %Additional Action Suggested: > 8.0 %Note: Hemoglobin A1c results are invalid for patients with abnormal amounts of HbF. Blood transfusions may impact the HbA1c concentration in the patient sample. Estimated Average Glucose 140 mg/dL [facility] Comment:eAG = Estimated ave rage glucose which is %A1C expressed asaverage glucose, using the formula of the J8M-UujkdbzIktzmso Glucose study (ADAG), Diabetes Care, Vol.31,#8,May. 2007 Blood Venous blood specimen / Unknown 12/31/2024 12:22 PM EDT 12/31/2024 1:49 PM EDT us Milana Mata DO LAB BLOOD ORDERABLES Final R esult [facility] [address] [place] [address] [phone] * MR Lumbar Spine w/o Contrast (10/17/2024 7:10 PM EST) Anatomical Region Laterality Modality Spine, L-spine Magnetic Resonan ce 10/17/2024 7:10 PM EST Narrative 10/28/2024 3:13 PM EST ? [facility] ?[address] ?[place] [address] ? Magnetic Resonance Report ? Signed ? Patient: Jose Alberto Frey,Reynaldo ?MR#: [id number] ?? [id number] ? : 1970 ?Acct:[id number] ? Age/Sex: 54 / M ?ADM Date: 10/17/24 ? Loc: HO.MRI ? Attending Dr: Vladimir Tao MD ? Ordering Physician: Vladimir Tao MD ?? Date of Service: 10/17/24 ?? Procedure(s): MR lumbar spine wo con ?? Accession Number(s): [id number] ? cc: Milana Mata DO; Vladimir Tao [...] Dejesus MD ??10/28/2024 03:10 PM ?? EST ? Dictated By: ?Saurabh Pean MD ? Signed By: ?<Electronically signed by Saurabh Jiménez MD in OV> ? 10/28/24 1510 ? DD/ 1910 ? TD/TT: 10/17/24 1935 ? Campground Cleaning Attendant: ? Procedure Note Sheldon Sellers - 10/28/2024 [place] [phone] Magnetic Resonance Report Signed Patient: Patrick Osuna#: [id number] : 1970Acct:[id number] Age/Sex: 54 / MADM Date: 10/17/24 Loc: HO.MRI Attending Dr: Vladimir Tao MD Ordering Physician: Vladimir Tao MD Date of Service: 10/17/24 Procedure(s): MR lumbar spine wo con Accession Number(s): [id number] cc: Milana Mata DO; Vladimir Tao MD [...] by: Saurabh Dejesus MD 10/28/2024 03:10 PM [facility] Dictated By: Saurabh Pena MD Signed By: <Electronically signed by Saurabh Jiménez MDin OV> 10/28/24 1510 DD/ 09 TD/TT: 10/17/241934 Campground Cleaning Attendant: [facility] External Provider IM MRI PROCEDURES Final Result * Hepatitis C Antibody with Reflex to HCV, RNA, Quantitative, Real-Time PCR (07/28/2024 10:21 AM EDT) Hepatitis C Antibody Nonreactive Nonreactive [facility] Comment:Antibodies to HCV no t detected; does not exclude early acuteHCV infection. Blood Venous blood specimen / Unknown 07/28/2024 10:21 AM EDT 07/28/2024 11:15 AM EDT Milana Mata DO LAB BLOOD ORDERABLES Final R esult Performing Organization Address City/[facility]/ZIP Co de Phone Number [facility] [address] [place] [phone] * HIV-1/2 Antigen and Antibodies, Fourth Generation, with Reflexes (07/28/2024 10:21 AM EDT) HIV AB/AG Nonreactive Nonreactive [facility] Comment:HIV-1 p24 Ag and/or HIV-1/HIV-2 Ab not detected.A test result that is nonreactive does not exclude thepossibility of exposure to or infection with HIV-1 and/orHIV-2. Nonreactive results in this assay for individualswith prior exposure to HIV-1 and/or HIV-2 may be due toantigen and antibody levels that are below the limit ofdetection of this assay.The artandseek HIV Ag/Ab Combo assay result andsupplemental assay results should be interpreted inconjunction with the patient's clinical presentation,history and other laboratory results. If the results areinconsistent with clinical evidence, additional testing issuggested to confirm the result. Blood Venous blood specimen / Unknown 07/28/2024 10:21 AM EDT 07/28/2024 11:15 AM EDT Milana Mata LAB BLOOD ORDERABLES Final R esult Performing Organization Address City/[facility]/ZIP Co de Phone Number [facility] [address] [place] [address] [phone] * (ABNORMAL) Lipid Panel, Standard (07/28/2024 10:21 AM EDT) Triglycerides 116 <150 mg/dL [facility] Comment:Desirable Triglyceri de: less than 150 mg/dLBorderline High Triglyceride 150-199 mg/dLHigh Triglyceride: 200-499 mg/dLVery High Triglyceride: greater than or equal to 5OO mg/dL Cholesterol 127 <200 mg/dL [facility] Comment:Desirable Cholestero l: less than 200 mg/dLBorderline High Cholesterol: 200-239 mg/dLHigh Cholesterol: greater than 239 mg/dL LDL Cholesterol Calculated 67 <100 mg/dL [facility] Comment:Desirable LDL: less than 100 mg/dLNear Optimal/Above Optimal LDL: 110- 129 mg/dLBorderline High LDL: 130-159 mg/dLHigh LDL: 160-189 mg/dLVery High LDL: greater than or equal to 190 mg/dL HDL Cholesterol 37(L) >40 mg/dL [facility] Comment:Desirable HDL: great er than 40 mg/dL Note: This HDL assay may give artificially low results in patients with liver disease. Blood Venous blood specimen / Unknown 07/28/2024 10:21 AM EDT 07/28/2024 10:55 AM EDT us Milana Mata DO LAB BLOOD ORDERABLES Final R esult Performing Organization Address [facility] Co de Phone Number [facility] [address] [place] [phone] * (ABNORMAL) Fecal Globin by Immunochemistry (11/15/2023 9:03 AM EST) Fecal Globin By Immunochemistry SEE NOTE(A) [facility] Comment:FECAL GLOBIN BY IMMU NOCHEMISTRY Micro Number: [id number] Test Status: Final Specimen Source: Not given Specimen Quality: Adequate Fecal Globin: DetectedTHIS TEST WAS PERFORMED AT:[employer] [address] [phone] VILLALPANDO MD Stool Rectal contents / Unknown 11/15/2023 9:03 AM EST 11/15/2023 12:27 PM EST us Fátima Bridges WINDOWS LAPTOP TECHNICIAN LAB BODY FLUIDS AND STOOLS ORD ERABLES Final Result Performing Organization Address City/[facility] Co de Phone Number [facility] [address] [place] [address] [phone] * Colonoscopy (04/19/2023 2:32 PM EDT) Colonoscopy Normal Normal Comment:Repeat in 5 years us Historical Provider MD HEALTH MAINTENANCE Final Result from Last 3 Months or Most Recently Relevant to Health Maintenance Insurance [place] [facility] [facility] [place]ICAID STAND [place] [id number] Care Teams Trench Pipe Layer Helper Relationship Specialty Start Date End Date Milana Mata DO [address] [facility] [place] [address] PCP - General Family Medicine 07/02/24
== END 2024-12-31 12:21 | disposition home or self-care (01) ==
LOC: HO.HHCL 12:20
PROVIDERS: Visit Provider Family Medicine
DX: R73.03 Prediabetes (principal)
CPT/HCPCS: 36415; 83036

== ENCOUNTER 2025-01-02 11:11 | Outpatient (REF) | payer MEDICAID, SELFPAY ==
--- OUTSIDE RECORDS SUMMARY | 2025-01-02 12:56 | XMS_ITS | Encounter Summary ---
Author Organization [employer] Address [address] [facility] [address] [place] [address] Care Team Providers Care Is Support Analyst Name Role Phone Sandra D eJesus Primary Care Provider [phone] Name, Daniel العراقي Primary Care Provider [phone] Milana Mata DO Primary Care Provider [phone] Encounter Details Date Type Department Care Team (Late st Contact Info) Description 02/05/2024 Telephone [facility] [address] [place] [address] Sandra De Jesus FNP [address] [place] [address] Social History Tobacco Use Types Packs/Day Years [...] Care Team (Late st Contact Info) Description 01/06/2025 12:00 PM EDT Office Visit [facility] [address] [place] [address] Milana Mata DO [address] [place] [address] documented as of this encounter Visit Diagnoses Not on filedocumented in this encounter Additional Health Concerns Assessment Noted Time PHQ-9 Depression Total Score: 8 11/15/19 24 9:20 AM EST documented as of this encounter Care Teams Is Support Analyst Relationship Specialty Start Date End Date Sandra De Jesus FNP [address] [place] [address] PCP - General Family Medicine 07/06/23 06/23/24 Daniel Krause MD [address] [place] [address] PCP - General Internal Medicine 06/24/24 07/01/24 Milana Mata DO [address] [place] [address] PCP - General Family Medicine 07/02/24 documented as of this encounter
--- OUTSIDE RECORDS SUMMARY | 2025-01-02 12:56 | XMS_ITS | Encounter Summary ---
Author Organization [employer] Address [address] [place] [address] Care Team Providers Care First Press Operator Name Role Phone Sandra De Jesus Primary Care Provider + Name, Daniel العراقي Primary Care Provider [phone] Milana Mata DO Primary Care Provider [phone] Encounter Details Date Type Department Care Team (Late st Contact Info) Description 05/23/2024 Orders Only [facility] [address] [place] [address] Sandra De Jesus FNP [address] [place] [address] Cervical neck pain with evidence of disc [...] Description 01/06/2025 12:00 PM EDT Office Visit [facility] [address] [place] [phone] Milana Mata DO [address] [place] [address] documented as of this encounter Visit Diagnoses Diagnosis Cervical neck pain with evidence of disc disease- Primary Other and unspecified disc disorder of cervical region documented in this encounter Additional Health Concerns Assessment Noted Time PHQ-9 Depression Total Score: 8 11/15/19 9:20 AM EST documented as of this encounter Care Teams First Press Operator Relationship Specialty Start Date End Date Sandra De Jesus FNP [address] [place] [phone] PCP - General Family Medicine 07/06/23 06/23/24 Daniel Krause MD [address] [place] [address] PCP - General Internal Medicine 06/24/24 07/01/24 Milana Mata DO [address] [place] [address], [place] [address] PCP - General Family Medicine 07/02/24 documented as of this encounter
--- OUTSIDE RECORDS SUMMARY | 2025-01-02 12:56 | XMS_ITS | Encounter Summary ---
Author Organization [employer] Address [address] [facility] [address]t [place] [address] Care Team Providers Care Coal Inspector Name Role Phone Sandra De Jesus Primary Care Provider [phone] Jimi, Daniel العراقي Primary Care Provider [phone] Milana Mata DO Primary Care Provider + [phone] Reason for Visit * Reason Onset Date Comments HAND SCREEN PRINTER Reevaluation 05/06/2024 Encounter Details Date Type Department Care Team (Late st Contact Info) Description 05/06/2024 Telephone [facility] [address] [place], [place] [phone] Sandra De Jesus FNP [address], [place] [phone] HAND SCREEN PRINTER Reevaluation Social History Tobacco Use Types Packs/Day [...] 05/13/2024 9:28 AM EDT Return call from [employer], explain that client want to re-start foster care program, Isidra advised to fax form to [facility], provider will review it and will contact agency if needed anything. Isidra verbally greed and understood. * Telephone Encounter - Alexys Orozco RN - 05/13/2024 9:09 AM EDT T/C x 2 am to [phone] for isidra for below message, No answer. [employer] Supervisor sent message to call back on [phone]. T/C to lissett to inform that [facility] is trying to call [employer] / HAND SCREEN PRINTER company for below message , but not able to contact them. LVM to call back on [phone]. Lissett states she is going to call them, Lissett also informed if HAND SCREEN PRINTER company / [employer] is missing any sign please fax documents on [phone] to get sign from PCP. Lissett states she is going to call to company. * Telephone Encounter - Lorena Waldrop - 05/12/2024 4:06 PM EDT Tc from pt spouse regarding message below. * Telephone Encounter - Alexys Orozco RN - 05/12/2024 10:05 AM EDT T/C to [phone] for isidra for below message, No answer. Wastewater Treatment Plant Supervisor sent message to call back on [phone]. * Telephone Encounter - Humberto Arauz - 05/12/2024 9:52 AM EDT Tc from [facility] requesting a status on PCP order form. Please see notes. Please contact at [phone] ( ask for isidra ) * Telephone Encounter - Brenda Gifford - 05/09/2024 12:35 PM EDT Tc from pt and Lissett requesting a call back in regards below message. Please contact at [phone] * Telephone Encounter - Alexys Orozco RN - 05/06/2024 4:21 PM EDT T/C to pt. For below message, pt. States his HAND SCREEN PRINTER company called him and states PCP discontinue the service for HAND SCREEN PRINTER services, pt. States he is having upcoming surgery and needs HAND SCREEN PRINTER services. RN cannotsee any notes that says [...] Description 01/06/2025 12:00 PM EDT Office Visit [facility] [address] [place] [address] Milana Mata DO [address] [place] [address] documented as of this encounter Visit Diagnoses Not on filedocumented in this encounter Additional Health Concerns Assessment Noted Time PHQ-9 Depression Total Score: 8 11/15/19 24 9:20 AM EST documented as of this encounter Care Teams Coal Inspector Relationship Specialty Start Date End Date Sandra De Jesus FNP [address] [place] [address] PCP - General Family Medicine 07/06/23 06/23/24 Name, MD Daniel [address] [place] [address] PCP - General Internal Medicine 06/24/24 07/01/24 Milana Mata DO [address] [place] [address] PCP - General Family Medicine 07/02/24 documented as of this encounter
--- OUTSIDE RECORDS SUMMARY | 2025-01-02 12:56 | XMS_ITS | Encounter Summary ---
Author Organization [employer] Address [address] [facility] 7t [place] [address] Care Team Providers Care Pneumatic Systems Operator Name Role Phone Milana Mata DO Primary Care Provider + [phone] Reason for Visit * Reason Comments Med Refill Encounter Details Date Type Department Care Team ([facility] st Contact Info) Description 12/01/2024 Refill [facility] [address] [place] [address] Milana Mata DO 230 [place] [address] Hyperlipidemia, unspecified hyperlipidemia type Social History Tobacco [...] Description 01/06/2025 12:00 PM EDT Office Visit [facility] [address] [place] [address] Milana Mata DO 230 [place] [address] documented as of this encounter Visit Diagnoses Diagnosis Hyperlipidemia, unspecified hyperlipidemia type documented in this encounter Additional Health Concerns Assessment Noted Time PHQ-9 Depression Total Score: 8 11/15/19 24 9:20 AM EST documented as of this encounter Care Teams Pneumatic Systems Operator Relationship Specialty Start Date End Date Milana Mata DO 230 [place] [address] PCP - General Family Medicine 07/02/24 documented as of this encounter
--- OUTSIDE RECORDS SUMMARY | 2025-01-02 12:56 | XMS_ITS ---
Author Organization [facility] Address [address] [place] [address] Care Team Providers Care Dolphin Trainer Name Role Phone Milana Mata M.D. Primary Care Provider Fabiola vailaRaphael Esparza Jr Unavailable REASON FOR VISIT Pt no show Encounters Encounter Location Date Provider Diagnosis [facility] [address] [place] [address] 07/21/2024 Raphael Powell Jr Plan Of Treatment Next Appt Details Provider Name:Raphael yi Jr, 05/13/2025 10:40:00 AM, [address], [address], [place], [address], Progress Notes * ORAL OSARESDOB:1970 (54 yo M)Acc No.[id number]:07/21/2024 Patient:?ORAL SOARES :1970???Age:54 Y???Sex:Male Address:[address] [place] [address] [address], [place], [address] * true * Date:? Generated for Printi jose angel/Filippo/eTransmitting on:?01/02/2025 12:56 PM EDT
--- OUTSIDE RECORDS SUMMARY | 2025-01-02 12:56 | XMS_ITS | Clinical Summary ---
Author Organization [employer] Address 75 [facility] 7t [place] [address] Care Team Providers Care Sizing Sprayer Name Role Phone AdolfoMilana Primary Care Provider Allergies Active Allergy Reactions Criticality Noted Date Comments Foster-Containing Products Anaphylaxis High 04/20/2023 Fruit Extracts 10/10/2023 Pt states he is allergic to any fruit that has seeds Penicillins Rash High 10/12/2010 [employer] 08/21/2024 Medications OXcarbazepine (Trileptal) 300 MG [...] 8 (eight) hours. 90 capsule 11 024 Active omeprazole (PriLOSEC) [address] capsuleIndication [...] AND IN THE EVENING 60 tablet 5 Active rosuvastatin (Crestor) 40 MG tabletIndications :Hyperlipidemia, unspecified hyperlipidemia type Take 1 tablet (40 mg) by mouth at bedtime. 90 tablet Active losartan-hydroCHL OROthiazide (Hyzaar) 100-25 MG tablet TAKE 1 TABLET BY MOUTH EVERY MORNING 90 tablet 3 Active cholecalciferol VITAMIN D (Vitamin D-3) 50 MCG (1999) tabletIndications :Anxiety state TAKE 1 TABLET BY [...] (allergies/it linwood). 10 mL 1 025 Active lidocaine (Lidoderm) 5 % patch Apply 1-2 patches topically if needed each day for mild pain. Remove & discard patch within 12 hours or as directed by MD. 60 patch 3 025 Active cloNIDine (Catapres) 0.2 MG tablet Take 1 tablet by mouth. 015 2024 Discontinued albuterol 108 (90 Base) MCG/ACT inhaler Inhale 2 puffs every 4 (four) hours if needed for shortness of breath or wheezing. 18 g 1 023 2024 Discontinued(R eorder (will not trigger notification to Pharmacy)) cholecalciferol (Vitamin D-3) 50 MCG (2000 UT) tabletIndications :Anxiety state TAKE 1 TABLET [...] 51.0 % 34.5??Low?? S/P laparoscopic-assisted sigmoidectomy 02/21/20 23 Assessment & Plan (03/02/2023 2:45 PM EDT): [...] there were small polyps. 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 Does not wear glasses. Dental home: upcoming appointment next month at [facility]. Allergies 04/20/2023 07/24/2024 Assessment & Plan (04/20/2023 [...] was prudent to send him to an flanger to get a comprehensive and accurate list [...] Encounters Date Type Department Care Team Description 01/02/2025 Population Health Risk Score [facility] (C3) Department [address] [id number] Provider, Population Health Generic 01/01/2025 Telephone [facility] [address] [place] [address] Cristine Savage RN Results 12/31/2024 10:45 AM EDT Office Visit [facility] [address] [place] [address] Milana Mata DO Essential hypertension (Primary Dx); Other hyperlipidemia; Prediabetes; Major depression, recurrent, chronic (CMS/HCC); Seizure disorder (CMS/HCC); Clotting disorder (CMS/HCC); Polyarthralgia; Chronic abdominal pain; Obstructive sleep apnea; Seasonal allergic rhinitis, unspecified trigger; Chronic neck and back pain; Healthcare maintenance 12/31/2024 Telephone [facility] [address] [place] [address] Milana Mata DO 12/31/2024 Travel 12/24/2024 Refill [facility] [address] [place] [address] Sandra De Jesus FNP Anxiety state 12/10/2024 Refill [facility] [address] [place] [address] Milana Mata DO Cervical neck pain with evidence of disc disease 12/02/2024 Refill [facility] [address] [place] [address] Milana Mata, Hyperlipidemia, unspecified hyperlipidemia type 12/01/2024 Refill [facility] [address] [place] [address] Milana Mata, DO Hyperlipidemia, unspecified hyperlipidemia type 11/17/2024 Telephone [facility] [address] [place] [address] Hortencia Blackmon MA Recall Appt. 11/17/2024 Travel 11/11/2024 Refill [facility] [address] [place] [address] Milana Mata DO Cervical neck pain with evidence of disc disease 11/11/2024 Refill [facility] [address] [place], [place] [phone] Milana Mata DO Cervical neck pain with evidence of disc disease 10/17/2024 Orders Only [facility] External Provider, [facility] 10/06/2024 Refill [facility] [address] [place] [address] Milana Mata DO Cervical neck pain with [...] 12/31/2024 10:48 AM EDT Plan of Treatment Upcoming Encounters Date Type Department Care Team (Late st Contact Info) Description 01/06/2025 12:00 PM EDT Office Visit [facility] [address] [place] [address] Milana Mata DO [address] [place] [address] Health Maintenance Due Date Last Done Comments [...] PM EDT) Hemoglobin A1c 6.5(H) <6.0 % [facility] Comment:Hemoglobin A1C Refer ence Range Adults: 4.8 - 6.0 % Non diabetic: < 6.0 % Goal: < 7.0 %Additional Action Suggested: > 8.0 %Note: Hemoglobin A1c results are invalid for patients with abnormal amounts of HbF. Blood transfusions may impact the HbA1c concentration in the patient sample. Estimated Average Glucose 140 mg/dL [facility] Comment:eAG = Estimated ave rage glucose which is %A1C expressed asaverage glucose, using the formula of the C6H-GacaigbSrfwnzo Glucose study (ADAG), Diabetes Care, Vol.31,#8,May. 2007 Blood Venous blood specimen / Unknown 12/31/2024 12:22 PM EDT 12/31/2024 1:49 PM EDT us Milana Mata DO LAB BLOOD ORDERABLES Final R esult [facility] [address] [place] [address] [phone] * MR Lumbar Spine w/o Contrast (10/17/2024 7:10 PM EST) Anatomical Region Laterality Modality Spine, L-spine Magnetic Resonan ce 10/17/2024 7:10 PM EST Narrative 10/28/2024 3:13 PM EST ? [facility] ?[address] ?[place] [address] ? Magnetic Resonance Report ? Signed ? Patient: Reynaldo Osuna ?MR#: [id number] ?? [id number] ? : 1970 ?Acct:[id number] ? Age/Sex: 54 / M ?ADM Date: 10/17/24 ? Loc: HO.MRI ? Attending Dr: Vladimir Tao MD ? Ordering Physician: Vladimir Tao MD ?? Date of Service: 10/17/24 ?? Procedure(s): MR lumbar spine wo con ?? Accession Number(s): [id number] ? cc: Milana Mata DO; Vladimir Tao [...] ? 10/28/24 1510 ? DD/ ? TD/TT: 10/17/241934 ? Hospice Entrance Attendant: ? Procedure Note Verito, Sheldon - 10/28/[address] [place] [address] Magnetic Resonance Report Signed Patient: Reynaldo OsunaMR#: [id number] : 1970Acct:[id number] Age/Sex: 54 / MADM Date: 10/17/24 Loc: HO.MRI Attending Dr: Vladimir Tao MD Ordering Physician: Vladimir Tao MD Date of Service: 10/17/24 Procedure(s): MR lumbar spine wo con Accession Number(s): [id number] cc: Milana Mata DO; Vladimir Tao MD [...] MD Signed By: <Electronically signed by Saurabh Jmiénez MDin OV> 10/28/24 1510 DD/ 09 TD/TT: 10/17/241934 Hospice Entrance Attendant: [facility] External Provider IMG MRI PROCEDURES Final Result * Hepatitis C Antibody with Reflex to HCV, RNA, Quantitative, Real-Time PCR (07/28/2024 10:21 AM EDT) Hepatitis C Antibody Nonreactive Nonreactive [facility] Comment:Antibodies to HCV no t detected; does not exclude early acuteHCV infection. Blood Venous blood specimen / Unknown 07/28/2024 10:21 AM EDT 07/28/2024 11:15 AM EDT Milana Mata DO LAB BLOOD ORDERABLES Final R esult [facility] [address] [place] [phone] * HIV-1/2 Antigen and Antibodies, Fourth Generation, with Reflexes (07/28/2024 10:21 AM EDT) HIV AB/AG Nonreactive Nonreactive [facility] Comment:HIV-1 p24 Ag and/or HIV-1/HIV-2 Ab not detected.A test result that is nonreactive does not exclude thepossibility of exposure to or infection with HIV-1 and/orHIV-2. Nonreactive results in this assay for individualswith prior exposure to HIV-1 and/or HIV-2 may be due toantigen and antibody levels that are below the limit ofdetection of this assay.The [employer] HIV Ag/Ab Combo assay result andsupplemental assay results should be interpreted inconjunction with the patient's clinical presentation,history and other laboratory results. If the results areinconsistent with clinical evidence, additional testing issuggested to confirm the result. Blood Venous blood specimen / Unknown 07/28/2024 10:21 AM EDT 07/28/2024 11:15 AM EDT Milana Mata LAB BLOOD ORDERABLES Final R esult Performing Organization Address [facility] Co de Phone Number [facility] [address] [place] [phone] [phone] * (ABNORMAL) Lipid Panel, Standard (07/28/2024 10:21 AM EDT) Triglycerides 116 <150 mg/dL [facility] Comment:Desirable Triglyceri de: less than 150 mg/dLBorderline High Triglyceride 150-199 mg/dLHigh Triglyceride: 200-499 mg/dLVery High Triglyceride: greater than or equal to 5OO mg/dL Cholesterol 127 <200 mg/dL [facility] Comment:Desirable Cholestero l: less than 200 mg/dLBorderline High Cholesterol: 200-239 mg/dLHigh Cholesterol: greater than 239 mg/dL LDL Cholesterol Calculated 67 <100 mg/dL [facility] Comment:Desirable LDL: less than 100 mg/dLNear Optimal/Above Optimal LDL: 110- 129 mg/dLBorderline High LDL: 130-159 mg/dLHigh LDL: 160-189 mg/dLVery High LDL: greater than or equal to 190 mg/dL HDL Cholesterol 37(L) >40 mg/dL [facility] Comment:Desirable HDL: great er than 40 mg/dL Note: This HDL assay may give artificially low results in patients with liver disease. Blood Venous blood specimen / Unknown 07/28/2024 10:21 AM EDT 07/28/2024 10:55 AM EDT Milana Mata DO LAB BLOOD ORDERABLES Final R esult Performing Organization Address City/[facility]/ZIP Co de Phone Number [facility] [address] [place] [phone] [phone] * (ABNORMAL) Fecal Globin by Immunochemistry (11/15/2023 9:03 AM EST) Fecal Globin By Immunochemistry SEE NOTE(A) [facility] Comment:FECAL GLOBIN BY IMMU NOCHEMISTRY Micro Number: [id number] Test Status: Final Specimen Source: Not given Specimen Quality: Adequate Fecal Globin: DetectedTHIS TEST WAS PERFORMED AT:[facility] [place] [phone] VILLALPANDO MD Stool Rectal contents / Unknown 11/15/2023 9:03 AM EST 11/15/2023 12:27 PM EST Fátima Bridges INTERIOR SPECIALIST LAB BODY FLUIDS AND STOOLS ORD ERABLES Final Result [facility] [address] [place] [phone] [phone] * Colonoscopy (04/19/2023 2:32 PM EDT) Colonoscopy Normal Normal Comment:Repeat in 5 years Historical Provider HEALTH MAINTENANCE Final Result from Last 3 Months or Most Recently Relevant to Health Maintenance Insurance [facility] C3 DENTAL-[facility] MEDICAID STAND ADULT Care Teams Sizing Sprayer Relationship Specialty Start Date End Date Milana Mata DO [address] [place] [address] PCP - General Family Medicine 07/02/24
--- OUTSIDE RECORDS SUMMARY | 2025-01-02 12:56 | XMS_ITS ---
Author Organization [facility] Address [address] [place] [address] Care Team Providers Care Site Medical Director Name Role Phone Milana Mata M.D. [...] Problem Status W/U Status Risk Notes Problem [id number] Generalized abdominal pain (R10.84) Active confirmed Vital Signs Temperature 98.7 degrees Fahrenheit 11/12/19 25 Blood pressure systolic 000 mm Hg 11/12/19 25 Blood pressure diastolic 00 mm Hg 025 Height 65 in 11/12/2024 Weight 224 lb 2 oz lbs 11/12/2024 BMI 37.29 kg/m2 11/12/2024 Encounters Encounter Location Date Provider Diagnosis [facility] [address] [place] [address] 11/12/2024 Raphael Powell Jr Generalized abdominal pain [...] and we will get his records from [facility] where he had sigmoid resection. Plan [...] 10:40:00 AM, [address], [address], [place], [address], Progress Notes * REYNALDO SOARESDOB:1970 (54 yo M)Acc No.[id number]:11/12/2024 Progress Notes Patient:?REYNALDO SOARES Provider:?Raphael Powlel MD :1970???Age:54 Y???Sex:Male Gagan e:11/12/2024 Address:[address] [place] [address] Pcp:Milana Mata M.D. Subjective: * Chief Complaints: [...] and we will get his records from [facility] where he had sigmoid resection. Plan: [...] MD Date:?0 11/12/2024 Generated for Phil walter/Filippo/eTransmitting on:?01/02/2025 12:56 PM EDT History and Physical Notes * HPI [...]
--- OUTSIDE RECORDS SUMMARY | 2025-01-02 12:56 | XMS_ITS | Encounter Summary ---
Author Organization [employer] Address [address] [facility] [address] 7t [place] [address] Care Team Providers Care Digital Advisor Name Role Phone Sandra De Jesus Primary Care Provider + Name, Daniel العراقي Primary Care Provider [phone] Milana Mata DO Primary Care Provider [phone] Encounter Details Date Type Department Care Team (Late st Contact Info) Description 09/03/2023 Abstract [facility] [address] [place] [address] Iram Resendiz Social History Tobacco Use Types [...] Description 01/06/2025 12:00 PM EDT Office Visit [facility] [address] [place] [address] Milana Mata DO [address] [place] [address] documented as of this encounter Visit Diagnoses Not on filedocumented in this encounter Additional Health Concerns Assessment Noted Time PHQ-9 Depression Total Score: 12 023 2:23 PM EDT documented as of this encounter Care Teams Digital Advisor Relationship Specialty Start Date End Date Sandra De Jesus FNP [address] [place] [address] PCP - General Family Medicine 07/06/23 06/23/24 NameDaniel MD [address] [place] [address] PCP - General Internal Medicine 06/24/24 07/01/24 Milana Mata DO [address] [place], [place] [phone] PCP - General Family Medicine 07/02/24 documented as of this encounter
--- OUTSIDE RECORDS SUMMARY | 2025-01-02 12:56 | XMS_ITS | Encounter Summary ---
Author Organization [employer] Address [address] [facility] 7t [place] [address] Care Team Providers Care Lace Winder Name Role Phone Milana Mata DO Primary Care Provider + [phone] Encounter Details Date Type Department Care Team ([facility] st Contact Info) Description 12/02/2024 Refill [facility] [address] [place] [address] Milana Mata DO [address] [place], [place] [phone] Hyperlipidemia, unspecified hyperlipidemia type Social History Tobacco [...] Description 01/06/2025 12:00 PM EDT Office Visit [facility] [address] [place] [address] Milana Mata DO [address] [place] [address] documented as of this encounter Visit Diagnoses Diagnosis Hyperlipidemia, unspecified hyperlipidemia type documented in this encounter Additional Health Concerns Assessment Noted Time PHQ-9 Depression Total Score: 8 11/15/19 24 9:20 AM EST documented as of this encounter Care Teams Lace Winder Relationship Specialty Start Date End Date Milana Mata DO [address] [place] [address] PCP - General Family Medicine 07/02/24 documented as of this encounter
--- OUTSIDE RECORDS SUMMARY | 2025-01-02 12:56 | XMS_ITS | Encounter Summary ---
Author Organization [employer] Address 75 [facility] 7t [place] [address] Care Team Providers Care Production Checker Name Role Phone Sandra De Jesus Primary Care Provider + Jimi, Daniel العراقي Primary Care Provider [phone] Milana Mata DO Primary Care Provider [phone] Reason for Visit * Reason Comments Med Refill Encounter Details Date Type Department Care Team (Late st Contact Info) Description 09/30/2023 Refill [facility] [address] [place] [address] Campbell Salguero AGNP Social History Tobacco Use [...] Description 01/06/2025 12:00 PM EDT Office Visit [facility] [address] [place] [address] Milana Mata DO [address] [place] [address] documented as of this encounter Visit Diagnoses Not on filedocumented in this encounter Additional Health Concerns Assessment Noted Time PHQ-9 Depression Total Score: 12 023 2:23 PM EDT documented as of this encounter Care Teams Production Checker Relationship Specialty Start Date End Date Sandra De Jesus FNP [address] [place] [address] PCP - General Family Medicine 07/06/23 06/23/24 NameDaniel MD [address] [place] [address] PCP - General Internal Medicine 06/24/24 07/01/24 Milana Mata DO [address] [place] [address] PCP - General Family Medicine 07/02/24 documented as of this encounter
--- OUTSIDE RECORDS SUMMARY | 2025-01-02 12:57 | XMS_ITS | Encounter Summary ---
Author Organization [employer] Address [address] [facility] 7t [place] [address] Care Team Providers Care Certified Wellness Program Manager Name Role Phone AdolfoMilana Primary Care Provider + [phone] Reason for Visit * Reason Comments Med Refill Encounter Details Date Type Department Care Team ([facility] st Contact Info) Description 09/04/2024 Refill [facility] [address] [place], [place] [phone] Sandra De Jesus FNP [address] [place] [address] Allergic rhinitis due to other allergic trigger, [...] Description 01/06/2025 12:00 PM EDT Office Visit [facility] [address] [place] [address] Milana Mata DO [address] [place] [address] documented as of this encounter Visit Diagnoses Diagnosis Allergic rhinitis due to other allergic trigger, unspecified seasonality documented in this encounter Additional Health Concerns Assessment Noted Time PHQ-9 Depression Total Score: 8 11/15/19 24 9:20 AM EST documented as of this encounter Care Teams Certified Wellness Program Manager Relationship Specialty Start Date End Date Milana Mata DO [address] [place] [address] PCP - General Family Medicine 07/02/24 documented as of this encounter
--- OUTSIDE RECORDS SUMMARY | 2025-01-02 12:57 | XMS_ITS | Patient Health Record ---
Author Organization [facility] Address [address] [place] [address] Care Team Providers Care Writer Editor Name Role Phone Milana Mata M.D. Primary Care Provider Raphael Cortes Jr Unavailable Allergies Allergen (clinical drug ingredient) Drug/Non Drug Allergy documented on EMR Reaction Allergy Type Onset Date Status Penicillin Unknown Drug Allergy Active Reason For Referral Referring Provider First Name Fátima Referring Provider Last Name Yuliana Referred Organization [facility] Referred Provider Raphael Powell Jr Referred Address [address],[place], [place],[address],[place] Referred Provider Specialty Gastroentero logy General Notes Katherine Kraus 024 07:59:40 AM EDT > requested a [facility] referral from [facility] for office visit with Dr. Powell on [phone] screening colon Referral Priority Routine Medications Medication [...] Problem Status W/U Status Risk Notes Problem [id number] Diverticulitis o f large intestine without perforation or abscess without bleeding (K57.32) Active confirmed Problem 808709072 Generalized abdominal pain (R10.84) Active confirmed Problem 829802515 Diverticulitis (K57.92) Active confirmed Problem 853452927 Family history o f colon cancer (Z80.0) Active confirmed Problem 895728773 Acute diverticulitis (K57.92) Active confirmed Problem 78410443 Hypertension, unspecified type (I10) Active confirmed Problem 195754611 Gas bloat syndro me (K92.89) Active confirmed Vital Signs Temperature 98.7 degrees Fahrenheit 11/12/2024 Blood pressure diastolic 00 mm Hg 11/12/2024 Height 65 in 11/12/2024 Blood pressure systolic 000 mm Hg 11/12/2024 Weight 224 lb 2 oz lbs 11/12/2024 BMI 37.29 kg/m2 11/12/2024 Encounters Encounter Location Date Provider Diagnosis [facility] [address] [place] [address] 11/12/2024 Raphael Powell Jr Generalized abdominal pain R10.84 [facility] [address] [place] [address] 04/11/2024 Raphael Powell Jr [facility] [address] [place] [address] 07/21/2024 Raphael Powell Jr Assessments Encounter Date [...] and we will get his records from [facility] where he had sigmoid resection. Plan [...] Name:Raphael yi , 05/13/2025 10:40:00 AM, [address] [facility], [address], [place], [address], Insurance Providers Payer Name Payer Address Payer Phone Subscriber Number Group Number Insured Name Patient Relationship to Insured Coverage Start Date Coverage End Date MEDICAID OF [employer] [address] [facility] [id number] ORAL SOARES Self - patient is the [...]
--- OUTSIDE RECORDS SUMMARY | 2025-01-02 12:57 | XMS_ITS ---
Author Organization [facility] Address [address] [place] [address] Care Team Providers Care Dimension Warehouse Supervisor Name Role Phone Adolfo Vivar, Milana Primary Care Provider Fabiola vailaRaphael Esparza Jr Unavailable REASON FOR VISIT Patient presents today for diverticulitis Encounters Encounter Location Date Provider Diagnosis [facility] [address] [place] [address] 07/21/2024 Raphael Powell Jr Plan Of Treatment Next Appt Details Provider Name:Raphael yi Jr, 05/13/2025 10:40:00 AM, [address], [address], [place], [address], Progress Notes * ORAL SOARESDOB:1970 (54 yo M)Acc No.[id number]:07/21/2024 Progress Notes Patient:?ORAL SOARES Provider:?Raphael Powell MD :1970???Age:54 Y???Sex:Male Gagan e:07/21/2024 Address:[address] [place] [address], [place], [place] Pcp:Milana Mata M.D. Subjective: * Chief Complaints: [...] Powell MD Date:?0 07/21/2024 Generated for Phil walter/Filippo/Ygitting on:?01/02/2025 12:57 PM EDT
--- OUTSIDE RECORDS SUMMARY | 2025-01-02 12:57 | XMS_ITS | Encounter Summary ---
Author Organization [employer] Address 75 [facility] 7t [place] [address] Care Team Providers Care Geosciences Associate Professor Name Role Phone Sandra De Jesus Primary Care Provider + Name, Daniel العراقي Primary Care Provider [phone] Milana Mata DO Primary Care Provider + [phone] Reason for Visit * Reason Comments Med Refill Encounter Details Date Type Department Care Team ([facility] st Contact Info) Description 10/21/2023 Refill [facility] [address] [place], [place] [phone] Sandra De Jesus FNP [address] [place], [place] [phone] Social History Tobacco Use Types Packs/Day Years [...] 12:00 PM EDT Office Visit [facility] [address] [place] [address] Milana Mata DO [address] [place] [address] documented as of this encounter Visit Diagnoses Not on filedocumented in this encounter Additional Health Concerns Assessment Noted Time PHQ-9 Depression Total Score: 12 023 2:23 PM EDT documented as of this encounter Care Teams Geosciences Associate Professor Relationship Specialty Start Date End Date Sandra De Jesus FNP [address] [place] [address] PCP - General Family Medicine 07/06/23 06/23/24 Daniel Krause MD [address] [place] [address] PCP - General Internal Medicine 06/24/24 07/01/24 Milana Mata DO [address] [place] [address] PCP - General Family Medicine 07/02/24 documented as of this encounter
--- OUTSIDE RECORDS SUMMARY | 2025-01-02 12:57 | XMS_ITS | Encounter Summary ---
Author Organization [employer] Address 75 [facility] 7t [place] [address] Care Team Providers Care Child Care Centre Director Name Role Phone AdolfoMilana Primary Care Provider + [phone] Reason for Visit * Reason Comments Med Refill Encounter Details Date Type Department Care Team ([facility] st Contact Info) Description 12/24/2024 Refill [facility] 230 [place] [address] Sandra De Jesus FNP 230 [place] [address] Anxiety state Social History Tobacco Use Types [...] Description 01/06/2025 12:00 PM EDT Office Visit [facility] 230 [place] [address] Milana Mata DO 230 [place] [address] documented as of this encounter Visit Diagnoses Diagnosis Anxiety state Anxiety state, unspecified documented in this encounter Additional Health Concerns Assessment Noted Time PHQ-9 Depression Total Score: 8 11/15/19 24 9:20 AM EST documented as of this encounter Care Teams Child Care Centre Director Relationship Specialty Start Date End Date Milana Mata DO 230 [place] [address] PCP - General Family Medicine 07/02/24 documented as of this encounter
--- OUTSIDE RECORDS SUMMARY | 2025-01-02 12:57 | XMS_ITS | Encounter Summary ---
Author Organization [employer] Address 75 [facility] 7t [place] [address] Care Team Providers Care Feed Mixer Name Role Phone Milana Mata DO Primary Care Provider + [phone] Reason for Visit * Reason Comments Med Refill Encounter Details Date Type Department Care Team ([facility] st Contact Info) Description 12/10/2024 Refill [facility] 230 [place] [address] Milana Mata DO 230 [place] [address] Cervical neck pain with evidence of disc [...] Description 01/06/2025 12:00 PM EDT Office Visit [facility] 230 [place] [address] Milana Mata DO 230 [place] [address] documented as of this encounter Visit Diagnoses Diagnosis Cervical neck pain with evidence of disc disease Other and unspecified disc disorder of cervical region documented in this encounter Additional Health Concerns Assessment Noted Time PHQ-9 Depression Total Score: 8 11/15/19 24 9:20 AM EST documented as of this encounter Care Teams Feed Mixer Relationship Specialty Start Date End Date Milana Mata DO [address] [place] [address] PCP - General Family Medicine 07/02/24 documented as of this encounter
--- OUTSIDE RECORDS SUMMARY | 2025-01-02 12:57 | XMS_ITS | Encounter Summary ---
Author Organization [employer] Address 75 [facility] 7t [place] [address] Care Team Providers Care Choir Teacher Name Role Phone Salguero Campbell VERONICA Primary Care Provider Unavail Sandra Mercado Primary Care Provider + Daniel Krause MD Primary Care Provider [phone] Milana Mata DO Primary Care Provider [phone] Reason for Visit * Reason Comments Med Refill Encounter Details Date Type Department Care Team ([facility] st Contact Info) Description 04/05/2023 Refill [facility] [address] [place], [place] [phone] Evie Francisco MD [address] [place] [address] Allergic rhinitis, unspecified seasonality, unspecified trigger Social [...] Description 01/06/2025 12:00 PM EDT Office Visit [facility] [address] [facility] [place] [address] Milana Mata DO 230 [place] [address] documented as of this encounter Visit Diagnoses Diagnosis Allergic rhinitis, unspecified seasonality, unspecified trigger documented in this encounter Additional Health Concerns Assessment Noted Time PHQ-9 Depression Total Score: 12 023 2:23 PM EDT documented as of this encounter Care Teams Choir Teacher Relationship Specialty Start Date End Date Campbell Salguero AGNP PCP - General Family Medicine 09/25/22 07/05/23 [place] [address] PCP - General Family Medicine 07/06/23 06/23/24 Jimi, [place] [address] PCP - General Internal Medicine 06/24/24 07/01/24 [place] [address] PCP - General Family Medicine 07/02/24 documented as of this encounter
--- OUTSIDE RECORDS SUMMARY | 2025-01-02 12:57 | XMS_ITS | Encounter Summary ---
Author Organization [employer] Address 75 [facility] 7t [place] [address] Care Team Providers Care Public Health Sanitarian Technician Name Role Phone Milana Mata Primary Care Provider [phone] Encounter Details Date Type Department Care Team [...] 12:00 PM EDT Office Visit [facility] [address] [place] [address] Milana Mata DO 230 [place] [address] documented as of this encounter Visit Diagnoses Not on filedocumented in this encounter Additional Health Concerns Assessment Noted Time PHQ-9 Depression Total Score: 0 01/01/20 25 10:51 AM EDT documented as of this encounter Care Teams Public Health Sanitarian Technician Relationship Specialty Start Date End Date Milana Mata DO 230 [place] [address] PCP - General Family Medicine 07/02/24 documented as of this encounter
--- OUTSIDE RECORDS SUMMARY | 2025-01-02 12:57 | XMS_ITS | Encounter Summary ---
Author Organization [employer] Address 75 [facility] 7t [place] [address] Care Team Providers Care Filter Washer And Presser Name Role Phone Campbell Salguero Primary Care Provider Unavail Sandra Mercado Primary Care Provider + Daniel Krause MD Primary Care Provider [phone] Milana Mata DO Primary Care Provider [phone] Encounter Details Date Type Department Care Team ([facility] Contact Info) Description 04/25/2023 Telephone [facility] 230 [place] [address] Earlene Lange LPN Social History Tobacco Use [...] Upcoming Encounters Date Type Department Care Team ([facility] Contact Info) Description 01/06/2025 12:00 PM EDT Office Visit [facility] 230 [place] [address] Milana Mata DO 230 [place] [address] documented as of this encounter Visit Diagnoses Not on filedocumented in this encounter Additional Health Concerns Assessment Noted Time PHQ-9 Depression Total Score: 12 023 2:23 PM EDT documented as of this encounter Care Teams Filter Washer And Presser Relationship Specialty Start Date End Date Campbell Salguero AGNP PCP - General Family Medicine 09/25/22 07/05/23 Sandra [place] [address] PCP - General Family Medicine 07/06/23 06/23/24 Daniel Krause MD [address] [place] [address] PCP - General Internal Medicine 06/24/24 07/01/24 Milana Mata DO [address] [place] [address] PCP - General Family Medicine 07/02/24 documented as of this encounter
--- OUTSIDE RECORDS SUMMARY | 2025-01-02 12:57 | XMS_ITS | Encounter Summary ---
Author Organization [employer] Address 75 [facility] 7t [place] [address] Care Team Providers Care Receiving Manager Name Role Phone AdolfoMilana Primary Care Provider + [phone] Reason for Visit * Reason Onset Date Comments Results 01/01/2025 Encounter Details Date Type Department Care Team ([facility] st Contact Info) Description 01/01/2025 Telephone [facility] [address] [place], [place] [phone] Cristine Savage RN [address] [place], [place] [phone] Results Social History Tobacco Use Types Packs/Day Years [...] encounter Miscellaneous Notes * Telephone Encounter - Cristine Savage RN - 01/02/2025 10:15 AM EDT TC returned to pt., informed pt. Bloodwork from 01/01/25 came back showing A1c of 6.5, indicating pt. 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 Pt. Agrees to follow up appt. 01/06/25 at 12pm with PCP to discuss blood sugar testing regimen/ medication as needed. * Telephone Encounter - Maia Forde - 01/02/2025 9:43 AM EDT Tc from pt returning phone call. [place] * Telephone Encounter - Cristine Savage RN - 01/01/2025 4:15 PM EDT TC placed to pt. To advise of bloodwork results from yesterday 12/31/24, no answer, left VM requesting call back to Red Team RN upon receipt of message. Will reattempt tomorrow if no c/b documented in this encounter Plan of Treatment Upcoming Encounters Date Type Department Care Team (Late st Contact Info) Description 01/06/2025 12:00 PM EDT Office Visit [facility] [address] [place] [address] Milana Mata DO 230 [place] [address] documented as of this encounter Visit Diagnoses Not on filedocumented in this encounter Additional Health Concerns Assessment Noted Time PHQ-9 Depression Total Score: 0 01/01/20 25 10:51 AM EDT documented as of this encounter Care Teams Receiving Manager Relationship Specialty Start Date End Date Milana Mata DO 230 [place] [address] PCP - General Family Medicine 07/02/24 documented as of this encounter
--- OUTSIDE RECORDS SUMMARY | 2025-01-02 12:57 | XMS_ITS | Encounter Summary ---
Author Organization [employer] Address [address] [facility] [address] 7t [place] [address] Care Team Providers Care Safety Belt Installer Name Role Phone Milana Mata DO Primary Care Provider [phone] Encounter Details Date Type Department Care Team ([facility] st Contact Info) Description 12/31/2024 Telephone [facility] 230 [place] [address] Milana Mata DO 230 [place] [address] Social History Tobacco Use Types Packs/Day Years [...] encounter Miscellaneous Notes * Telephone Encounter - Milana Mata DO - 12/31/2024 2:47 PM EDT Pt with mild GENE. Please initiate rx for autoCPAP. Thank you. documented in this encounter Plan of Treatment Upcoming Encounters Date Type Department Care Team (Late st Contact Info) Description 01/06/2025 12:00 PM EDT Office Visit [facility] 230 [place] [address] Milana Mata DO 230 [place] [address] documented as of this encounter Visit Diagnoses Not on filedocumented in this encounter Additional Health Concerns Assessment Noted Time PHQ-9 Depression Total Score: 0 01/01/20 25 10:51 AM EDT documented as of this encounter Care Teams Safety Belt Installer Relationship Specialty Start Date End Date Milana Mata DO 230 [place] [address] PCP - General Family Medicine 07/02/24 documented as of this encounter
--- OUTSIDE RECORDS SUMMARY | 2025-01-02 12:57 | XMS_ITS | Encounter Summary ---
Author Organization [employer] Address 75 [facility] 7t [place] [address] Care Team Providers Care Aircraft Maintenance Instructor Name Role Phone Sandra De Jesus Primary Care Provider + Jimi, Daniel العراقي Primary Care Provider [phone] Milana Mata DO Primary Care Provider + Reason for Visit * Reason Comments Med Refill Encounter Details Date Type Department Care Team ([facility] st Contact Info) Description 08/01/2023 Refill [facility] 230 [place] [address] Ryan Nation MD [address] [place] [address] Social History Tobacco Use Types Packs/Day Years [...] 12:00 PM EDT Office Visit [facility] [address] [place], [place] [phone] Milana Mata DO 230 [place] [address] documented as of this encounter Visit Diagnoses Not on filedocumented in this encounter Additional Health Concerns Assessment Noted Time PHQ-9 Depression Total Score: 12 023 2:23 PM EDT documented as of this encounter Care Teams Aircraft Maintenance Instructor Relationship Specialty Start Date End Date Sandra De Jesus FNP [address] [place], [place] [phone] PCP - General Family Medicine 07/06/23 06/23/24 Daniel Krause MD [address] [place] [address] [id number] PCP - General Internal Medicine 06/24/24 07/01/24 Milana Mata DO [address] [place] [address] PCP - General Family Medicine 07/02/24 documented as of this encounter
--- OUTSIDE RECORDS SUMMARY | 2025-01-02 12:57 | XMS_ITS | Encounter Summary ---
Author Organization [facility] Address [address] [place] [address] 7t [place] [address] Care Team Providers Care Integrated Logistics Support Manager Name Role Phone Jose M Campbell VERONICA Primary Care Provider Unavail Sandra MercadoP Primary Care Provider [phone] NameDaniel MD Primary Care Provider [phone] Milana Mata DO Primary Care Provider + [phone] Reason for Visit * Reason Comments Med Refill Encounter Details Date Type Department Care Team (Late Contact Info) Description 07/04/2023 Refill [facility] 230 [place] [address] Name, MD Daniel 230 [place] [address] Social History Tobacco Use Types Packs/Day Years [...] Department Care Team (Late Contact Info) Description 01/06/2025 12:00 PM EDT Office Visit [facility] [address] [place] [address] Mialna Mata DO 230 [place] [address] documented as of this encounter Visit Diagnoses Not on filedocumented in this encounter Additional Health Concerns Assessment Noted Time PHQ-9 Depression Total Score: 12 023 2:23 PM EDT documented as of this encounter Care Teams Integrated Logistics Support Manager Relationship Specialty Start Date End Date Campbell Salguero AGNP PCP - General Family Medicine 09/25/22 07/05/23 Snadra De Jesus FNP 230 [place] [address] PCP - General Family Medicine 07/06/23 06/23/24 Name, MD Daniel [address] [place] [address] PCP - General Internal Medicine 06/24/24 07/01/24 Milana Mata DO [address] [place] [address] PCP - General Family Medicine 07/02/24 documented as of this encounter
--- OUTSIDE RECORDS SUMMARY | 2025-01-02 12:57 | XMS_ITS | Encounter Summary ---
Author Organization [employer] Address 75 [facility] 7t [place] [address] Care Team Providers Care Permit Coordinator Name Role Phone Campbell Salguero Primary Care Provider Unavail Sandra Mercado Primary Care Provider + NameDaniel MD Primary Care Provider [phone] Milana Mata DO Primary Care Provider [phone] Reason for Visit * Reason Onset Date Comments Nurse Triage 05/28/2023 Encounter Details Date Type Department Care Team (Late st Contact Info) Description 05/28/2023 Telephone [facility] 230 [place] [address] Campbell Salguero AGNP Nurse Triage Social History [...] 9:23 AM EDT Call to Pt with [employer] [place] [id number] Pt is given message from EVIN Salguero, [...] EDT Triage call Pt gives permission for MARKETING RESEARCH INTERN, Lissett, to speak for Pt. PT was [...] accepted this outcome Please contact lissett at [phone] documented in this encounter Plan of Treatment Upcoming Encounters Date Type Department Care Team (Late st Contact Info) Description 01/06/2025 12:00 PM EDT Office Visit [facility] [address] [place] [address] Milana Mata DO 230 [place] [address] documented as of this encounter Visit Diagnoses Diagnosis Benign prostatic hyperplasia with incomplete bladder emptying- Primary documented in this encounter Additional Health Concerns Assessment Noted Time PHQ-9 Depression Total Score: 12 023 2:23 PM EDT documented as of this encounter Care Teams Permit Coordinator Relationship Specialty Start Date End Date Campbell Salguero AGNP PCP - General Family Medicine 09/25/22 07/05/23 Sandra De Jesus FNP [address] [place] [address] PCP - General Family Medicine 07/06/23 06/23/24 Daniel Krause MD [address] [place] [address] PCP - General Internal Medicine 06/24/24 07/01/24 Milana Mata DO [address] [place] [address] PCP - General Family Medicine 07/02/24 documented as of this encounter
--- OUTSIDE RECORDS SUMMARY | 2025-01-02 12:57 | XMS_ITS | Encounter Summary ---
Author Organization [employer] Address 75 [facility] 7t [place] [address] Care Team Providers Care Quantitative Research Analyst Name Role Phone Milana Mata DO Primary Care Provider [phone] Encounter Details Date Type Department Care Team ([facility] st Contact Info) Description 12/31/2024 10:45 AM EDT Office Visit [facility] 230 [place], [place] [phone] Milana Mata DO 230 [place], [place] [phone] Essential hypertension (Primary Dx); Other hyperlipidemia; Prediabetes; [...] the past 12 months, has t he [employer], gas, oil or water company threatened to [...] Description 01/06/2025 12:00 PM EDT Office Visit [facility] 230 [place] [address] Milana Mata DO [address] [place], [place] [phone] documented as of this encounter Procedures Procedure Name Priority Date/Time Associated Diagnosis Comments HEMOGLOBIN A1C Routine 12/31/2024 12:22 PM EDT Prediabetes documented in this encounter Results * (ABNORMAL) Hemoglobin A1c (12/31/2024 12:22 PM EDT) Hemoglobin A1c 6.5(H) <6.0 % [facility] Comment:Hemoglobin A1C Refer ence Range Adults: 4.8 - 6.0 % Non diabetic: < 6.0 % Goal: < 7.0 %Additional Action Suggested: > 8.0 %Note: Hemoglobin A1c results are invalid for patients with abnormal amounts of HbF. Blood transfusions may impact the HbA1c concentration in the patient sample. Estimated Average Glucose 140 mg/dL [facility] Comment:eAG = Estimated ave rage glucose which is %A1C expressed asaverage glucose, using the formula of the P0Q-VegaviaVzeqgdv Glucose study (ADAG), Diabetes Care, Vol.31,#8,May. 2007 Blood Venous blood specimen / Unknown 12/31/2024 12:22 PM EDT 12/31/2024 1:49 PM EDT us Milana Mata DO LAB BLOOD ORDERABLES Final R esult [facility] [address] [place] [address] [phone] documented in this encounter Visit Diagnoses [...] documented as of this encounter Care Teams Quantitative Research Analyst Relationship Specialty Start Date End Date Milana Mata DO 230 [place] [address] PCP - General Family Medicine 07/02/24 documented as of this encounter
--- OUTSIDE RECORDS SUMMARY | 2025-01-02 12:57 | XMS_ITS | Encounter Summary ---
Author Organization [employer] Address 75 [facility] 7t [place] [address] Care Team Providers Care Pizza Driver Name Role Phone Adolfo Milana Primary Care Provider [phone] Encounter Details Date Type Department Care Team ([facility] st Contact Info) Description 01/02/2025 Population Health Risk Score [facility] (C3) Department 75 [facility] 7 [place] [phone] Provider, Population Health Generic Social History Tobacco Use Types Packs/Day Years [...] Office Visit [facility] MEDICINE 230 [place] [address] Milana Mata DO [address] [place] [address] documented as of this encounter Visit Diagnoses Not on filedocumented in this encounter Additional Health Concerns Assessment Noted Time PHQ-9 Depression Total Score: 0 01/01/20 25 10:51 AM EDT documented as of this encounter Care Teams Pizza Driver Relationship Specialty Start Date End Date Milana Mata DO [address] [place] [address] PCP - General Family Medicine 07/02/24 documented as of this encounter
[2025-01-02 13:57] LABS: Hematocrit 37.2 % (42.0-52.0); Hemoglobin 12.3 g/dl (14.0-18.0); Mean Corpuscular HGB Conc 33.1 g/dl (31.0-36.0); Mean Corpuscular Hemoglobin 25.9 pg (27.0-33.0); Mean Corpuscular Volume 78.3 fL (80.0-98.0); Mean Platelet Volume 11.6 fL (9.4-12.4); Platelet Count 292 X10*3/uL (160-400); Red Blood Count 4.75 X10*6/uL (4.60-5.80); Red Cell Distribution Width 14.6 % (11.0-16.0); White Blood Count 6.3 X10*3/uL (4.8-10.8)
[2025-01-02 14:29] LABS: Alanine Aminotransferase 20 U/L (0-40); Albumin Level 4.3 g/dL (3.5-5.0); Alkaline Phosphatase 99 U/L (39-117); Aspartate Amino Transferase 24 U/L (5-37); Bilirubin Direct 0.1 mg/dL (0.0-0.5); Bilirubin Total 0.3 mg/dL (0.0-1.0); Blood Urea Nitrogen 13 mg/dL (9-16); Estimated Glomerular Filt Rate > 60; Lipase 20 U/L (8-78); Total Protein 8.1 g/dL (6.5-8.0)
== END 2025-01-02 11:12 | disposition home or self-care (01) ==
LOC: HO.HHCL 11:11
PROVIDERS: Visit Provider Internal Medicine Gastroenterology
DX: R10.84 Generalized abdominal pain (principal)
CPT/HCPCS: 36415; 80076; 82565; 83690; 84520; 85027

== ENCOUNTER 2025-01-06 07:55 | Outpatient (REF) | payer MEDICAID, SELFPAY ==
--- NOTE | ~2025-01-06 | CT_ITS ---
EXAMINATION: CT ABDOMEN PELVIS WITH IV CONTRAST HISTORY: ABD PAIN COMPARISON: Comparison is made with the prior examination dated 05/17/2023. TECHNIQUE: CT scan of the abdomen and pelvis was performed following administration of 85 mL Omnipaque 350 using standard departmental protocol. Coronal and sagittal reformatted images were generated and reviewed. The patient received oral contrast material. This CT exam was performed with one or more of the following dose reduction techniques: automated exposure control, adjustment of the mA and/or kV according to patient size, use of iterative reconstruction technique. DLP: 565 mGy-cm FINDINGS: LOWER CHEST: The visualized lung bases are clear. There is no pleural effusion. CARDIOVASCULATURE: The heart is normal in size. There is no pericardial effusion. LIVER: The liver is normal in size and contour. Again seen are tiny subcentimeter hypodense foci in the liver which likely represent cysts but are too small to accurately characterize. These are unchanged from the prior study. The hepatic and portal veins are patent. GALLBLADDER / BILE DUCTS: The gallbladder is unremarkable. There is no intra or extrahepatic biliary ductal dilatation. SPLEEN: The spleen is normal in size. No focal splenic lesion is identified. PANCREAS: The pancreas is unremarkable in appearance. ADRENAL GLANDS: Within normal limits. KIDNEYS/RETROPERITONEUM: No renal calculi are identified. There is no hydronephrosis. No renal masses are identified. LYMPH NODES: No abdominal or pelvic lymphadenopathy. VASCULATURE: The abdominal aorta is normal in caliber. MESENTERY/PERITONEUM: No free fluid. No masses. There is no free intraperitoneal gas. STOMACH: The stomach is collapsed, limiting evaluation. SMALL BOWEL: The small bowel is normal in caliber. COLON: There are scattered diverticuli of the descending and sigmoid colon, without evidence of diverticulitis. A sigmoid anastomosis is again noted. APPENDIX: Normal. URINARY BLADDER/PELVIC ORGANS: The urinary bladder is collapsed, limiting evaluation. The prostate is normal in size. BONES / SOFT TISSUES: No suspicious bony or soft tissue abnormalities. CT/CT abdomen pelvis w IV con IMPRESSION: No acute abnormality is identified. Incidental findings as discussed above. Electronically signed by: Anil Sanchez MD 01/06/2025 11:34 AM EDT
--- OUTSIDE RECORDS SUMMARY | 2025-01-06 07:59 | XMS_ITS | Encounter Summary ---
Author Organization [employer] Address 75 [facility] 7t [place] [address] Care Team Providers Care Telehealth Nurse Educator Name Role Phone Milana Mata DO Primary Care Provider + [phone] Reason for Visit * Reason Comments Med Refill Encounter Details Date Type Department Care Team ([facility] st Contact Info) Description 12/10/2024 Refill [facility] 230 [place] [address] Milana Mata DO [address] [place] [address] Cervical neck pain with evidence of disc [...] documented as of this encounter Care Teams Telehealth Nurse Educator Relationship Specialty Start Date End Date Milana Mata DO [address] [place] [address] PCP - General Family Medicine 07/02/24 documented as of this encounter
--- OUTSIDE RECORDS SUMMARY | 2025-01-06 07:59 | XMS_ITS | Encounter Summary ---
Author Organization [employer] Address [address] [facility] 7t [place] [address] Care Team Providers Care Museum Archivist Name Role Phone Sandra De Jesus Primary Care Provider [phone] Name, Daniel العراقي Primary Care Provider [phone] Milana Mata DO Primary Care Provider [phone] Reason for Visit * Reason Comments Med Refill Encounter Details Date Type Department Care Team ([facility] st Contact Info) Description 10/21/2023 Refill [facility] MEDICINE 230 [place], [place] [phone] Sandra De Jesus FNP 230 [place], [place] [phone] Social History Tobacco Use Types Packs/Day Years [...] documented as of this encounter Care Teams Museum Archivist Relationship Specialty Start Date End Date Sandra De Jesus FNP [address] [place] [address] PCP - General Family Medicine 07/06/23 06/23/24 Daniel Krause MD [address] [place] [address] PCP - General Internal Medicine 06/24/24 07/01/24 Milana Mata DO [address] [place] [address] PCP - General Family Medicine 07/02/24 documented as of this encounter
--- OUTSIDE RECORDS SUMMARY | 2025-01-06 07:59 | XMS_ITS ---
Author Organization [facility] Address [address] [place] [address] Care Team Providers Care Molding Machine Tender Name Role Phone Milana Mata M.D. Primary Care Provider Fabiola vailaRaphael Esparza Jr Unavailable [phone] REASON FOR VISIT Pt no show Encounters Encounter Location Date Provider Diagnosis [facility] [address] [place] [address] 07/21/2024 Raphael Powell Jr Plan Of Treatment Next Appt Details Provider Name:Raphael yi Jr, 05/13/2025 10:40:00 AM, [address], [address], [place], [address], Progress Notes * ORAL SOARESDOB:1970 (54 yo M)Acc No.[id number]:07/21/2024 Patient:?ORAL SOARES :1970???Age:54 Y???Sex:Male Address:[address] [place] [address] [address], [place], [address] * true * Date:? Generated for Printi jose angel/Filippo/eTransmitting on:?01/06/2025 07:59 AM EDT
--- OUTSIDE RECORDS SUMMARY | 2025-01-06 07:59 | XMS_ITS ---
Author Organization [facility] Address [address] [place] [address] Care Team Providers Care Medical Claims Assistant Name Role Phone Milana Mata M.D. Primary [...] Problem Status W/U Status Risk Notes Problem [id number] Generalized abdominal pain (R10.84) Active confirmed Vital Signs Temperature 98.7 degrees Fahrenheit 11/12/19 25 Blood pressure systolic 000 mm Hg 11/12/19 25 Blood pressure diastolic 00 mm Hg 025 Height 65 in 11/12/2024 Weight 224 lb 2 oz lbs 11/12/2024 BMI 37.29 kg/m2 11/12/2024 Encounters Encounter Location Date Provider Diagnosis [facility] [address] [place] [address] 11/12/2024 Raphael Powell Jr Generalized abdominal pain [...] and we will get his records from [facility] where he had sigmoid resection. Plan [...] 10:40:00 AM, [address], [address], [place], [address], Progress Notes * REYNALDO SOARESDOB:1970 (54 yo M)Acc No.[id number]:11/12/2024 Progress Notes Patient:?REYNALDO SOARES Provider:?Raphael Powell MD :1970???Age:54 Y???Sex:Male Gagan e:11/12/2024 Address:[address] [place] [address], [facility] Pcp:Milana Mata M.D. Subjective: * Chief Complaints: [...] and we will get his records from [facility] where he had sigmoid resection. Plan: [...] MD Date:?0 11/12/2024 Generated for Phil walter/Filippo/eTransmitting on:?01/06/2025 07:59 AM EDT History and Physical Notes * [...]
--- OUTSIDE RECORDS SUMMARY | 2025-01-06 07:59 | XMS_ITS | Clinical Summary ---
Author Organization [employer] Address [address] [facility] 7t [place] [address] Care Team Providers Care Boring Inspector Name Role Phone AdolfoMilana Primary Care Provider Allergies Active Allergy Reactions Criticality Noted Date Comments [place]-Containing Products Anaphylaxis High 04/20/2023 Fruit Extracts 10/10/2023 Pt states he is allergic to any fruit that has seeds Penicillins Rash High 10/12/2010 Cardwell Oil 08/21/2024 Medications OXcarbazepine (Trileptal) 300 MG [...] at bedtime for severe pain. 56 tablet Active Diclofenac Sodium 1 % gel Apply 2 g topically if needed in the morning, at noon, in the evening, and at bedtime (pain). 150 g 3 Active albuterol 108 (90 Base) MCG/ACT inhaler Inhale 2 puffs every 4 (four) hours if needed for shortness of breath or wheezing. 18 g 1 025 Active fluticasone (Flonase) 50 MCG/ACT nasal spray Administer 2 sprays into each nostril Once per day. 48 g 3 Active Ketotifen Fumarate (Alaway) 0.035 % solution Administer 1 drop into affected eye(s) if needed in the morning and at bedtime (allergies/it linwood). 10 mL 1 Active lidocaine (Lidoderm) 5 % patch Apply 1-2 patches topically if needed each day for mild pain. Remove & discard patch within 12 hours or as directed by MD. 60 patch 3 Active FREESTYLE LITE test strip Use to test blood sugar 2 times daily 100 each 11 025 2025 Active Lancets misc Use to test blood sugar 2 times daily 100 each 11 Active Alcohol Swabs 70 % pads Use to test blood sugar 2 times daily 100 each 3 Active Blood Glucose Monitoring Suppl (FreeStyle Sparkill Lite) w/Device kit Use to test blood sugar 2 times daily 1 kit Active Dulaglutide (Trulicity) 0.75 MG/0.5ML solution auto-injector Inject 0.75 mg under the skin 1 (one) time per week. 2 mL 3 025 Active cloNIDine (Catapres) 0.2 MG [...] MOUTH AT BEDTIME 90 tablet 025 2024 Discontinued( ed list cleanup (will not trigger notification [...] there were small polyps. [place] exam[place] fl[place] 8 [place] [facility] [place]. [place] home[place] [facility] [place] Allergies [...] was prudent to send him to an basin cleaner to get a comprehensive and accurate list [...] Encounters Date Type Department Care Team Description 01/05/2025 11:30 AM EDT Office Visit [facility] [address] [place] [address] Milana Mata DO New onset type 2 diabetes mellitus (CMS/HCC) (Primary Dx) 01/05/2025 Travel 01/02/2025 Population Health Risk Score [facility] (C3) Department [address] [place] [phone] Provider, Population Health Generic 01/01/2025 Telephone [facility] [address] [place] [address] Cristine Savage RN Results 12/31/2024 10:45 AM EDT Office Visit [facility] [address] [place] [address] Milana Mata DO Essential hypertension (Primary Dx); Other hyperlipidemia; Prediabetes; Major depression, recurrent, chronic (CMS/HCC); Seizure disorder (CMS/HCC); Clotting disorder (CMS/HCC); Polyarthralgia; Chronic abdominal pain; Obstructive sleep apnea; Seasonal allergic rhinitis, unspecified trigger; Chronic neck and back pain; Healthcare maintenance 12/31/2024 Telephone [facility] [address] [place] [address] Milana Mata DO 12/31/2024 Travel 12/24/2024 Refill [facility] [address] [place] [address] Sandra De Jesus FNP Anxiety state 12/10/2024 Refill [facility] [address] [place] [address] Milana Mata DO Cervical neck pain with evidence of disc disease 12/02/2024 Refill [facility] [address] [place] [address] Milana Mata DO Hyperlipidemia, unspecified hyperlipidemia type 12/01/2024 Refill [facility] [address] [place] [address] Milana Mata DO Hyperlipidemia, unspecified hyperlipidemia type 11/17/2024 Telephone [facility] [address] [place] [address] Hortencia Blackmon MA Recall Appt. 11/17/2024 Travel 11/11/2024 Refill [facility] [address] [place] [address] Milana Mata DO Cervical neck pain with evidence of disc disease 11/11/2024 Refill [facility] [address] [place], [place] [phone] Milana Mata DO Cervical neck pain with evidence of disc disease 10/17/2024 Orders Only [facility] External Provider, [facility] from Last 3 Months Immunizations Name Administration Dates Next Due Hep B, adult 12/31/2024, 2,05/30/2011,2010 Influenza Injectable Quadriv alant Preservative Free IIV4 MDCK 09/29/2022 Influenza injectable quadriv alent preservative free 10/10/2023 Influenza, IIV3, injectable 09/05/2022, 8 Influenza, Split (incl. josue fied surface antigen) 07/29/2013 Influenza, seasonal, injecta ble, preservative free 07/24/2024 Moderna Covid-19 Vaccine 12+ 10/11/2021,02/03/20,01/02/2021 Pfizer Covid-19 Vaccine 12+ 07/24/2024 Pneumococcal Conjugate [...] the past 12 months, has t he [employer], gas, oil or water company threatened to [...] Sign Reading Time Taken Comments Blood Pressure 138/80 01/05/2025 12:22 PM EDT Pulse 94 01/05/2025 12:22 PM EDT Temperature 36.8 ??C (98.3 ??F) 01/05/2025 12:22 PM E DT Respiratory Rate 19 01/05/2025 12:22 PM EDT Oxygen Saturation 98% 01/05/2025 12:22 PM EDT Inhaled Oxygen Concentration - - Weight 102 kg (225 lb 4 oz) 01/05/2025 12:22 PM EDT Height 165.1 cm (5' 5 ) 01/05/2025 12:22 PM EDT Body Mass Index 37.48 01/05/2025 12:22 PM EDT Plan of Treatment Health Maintenance Due Date Last Done Comments CT Colonography 1969 Dental Oral Exam 1969 Dental Prophylaxis 1969 Dental X-Ray: Full Mouth 1969 FIT DNA/Cologuard 1969 Sigmoidoscopy 1969 Diabetes: Foot Exam 1979 FIT 11/15/2024 11/15/2023 FOBT 11/15/2024 11/15/2023 SDOH Screening 04/25/2025 04/25/2024 Diabetes: Hemoglobin A1C 07/08/2025 025, 12/31/2024, 07/28/2024, Additional history exists Diabetes: Urine Protein Screening 07/28/2025 07/28/2024, 09/20/2021 Lipid Panel 07/28/2025 07/28/2024, 03/24, 08/30/2022, Additional history exists Dental X-Ray: Bitewings 08/22/2025 08/21/2024 Eye Exam 11/26/2025 11/26/2023, 02/2024, 11/26/2023, Additional history exists Alcohol/Substance Use Screening 12/31/2025 12/31/2024 Depression Screening 12/31/2025 12/31/2024, 01/01/20 Tobacco Screening 12/31/2025 12/31/2024 Colonoscopy 04/19/2028 04/19/2023 Colorectal Cancer Screening 04/19/2028 DTaP/Tdap/Td Vaccines (4 - Td or Tdap) [...] Procedure Name Priority Date/Time Associated Diagnosis Comments POCT GLYCATED HEMOGLOBIN, TOTAL Routine 01/05/2025 12:26 PM EDT New onset type 2 diabetes mellitus (CMS/HCC) POCT GLUCOSE Routine 01/05/2025 12:25 PM EDT New onset type 2 diabetes mellitus (CMS/HCC) HEMOGLOBIN A1C Routine 12/31/2024 12:22 PM EDT [...] sleep apnea BMI 36.0-36.9,adult Encounter for immunization ALBUMIN, RANDOM URINE W/CREATININE Routine 07/28/2024 10:13 AM EDT Routine history and physical examination [...] Relevant to Health Maintenance Results * (ABNORMAL) POCT HGB A1C (01/05/2025 12:26 PM EDT) Hemoglobin A1C 6.4(A) 4.0 - 6.0 % QC Media Lot # [id number] Lot# Expiration Date Blood 01/05/2025 12:2 6 PM EDT Milana Mata DO POINT OF CARE TEST ENTER/MITZI T ORDERABLES Final Result * POCT Glucose (01/05/2025 12:25 PM EDT) Glucose Blood, POC 124 60 - 200 mg/dL QC [place] Lot # [id number] Lot# Expiration Date 242,069 Blood Capillary blood specimen / Unknown 01/05/2025 12:25 PM EDT Milana Mata DO POINT OF CARE TEST ENTER/MITZI T ORDERABLES Final Result * (ABNORMAL) Hemoglobin A1c (12/31/2024 12:22 PM EDT) Hemoglobin A1c 6.5(H) <6.0 % [facility] Comment:Hemoglobin A1C Refer ence Range Adults: 4.8 - 6.0 % Non diabetic: < 6.0 % Goal: < 7.0 %Additional Action Suggested: > 8.0 %Note: Hemoglobin A1c results are invalid for patients with abnormal amounts of HbF. Blood transfusions may impact the HbA1c concentration in the patient sample. Estimated Average Glucose 140 mg/dL [facility] Comment:eAG = Estimated ave rage glucose which is %A1C expressed asaverage glucose, using the formula of the W8Q-PpljrcbCcuffpv Glucose study (ADAG), Diabetes Care, Vol.31,#8,May. 2007 Blood Venous blood specimen / Unknown 12/31/2024 12:22 PM EDT 12/31/2024 1:49 PM EDT Milana Mata DO LAB BLOOD ORDERABLES Final R esult [facility] [address] [place] [address] [phone] * MR Lumbar Spine w/o Contrast (10/17/2024 7:10 PM EST) Anatomical Region Laterality Modality Spine, L-spine Magnetic Resonan ce 10/17/2024 7:10 PM EST Narrative 10/28/2024 3:13 PM EST ? [facility] ?[address] ?[place] [address] ? Magnetic Resonance Report ? Signed ? Patient: Jose Alberto Frey,Reynaldo ?MR#: [id number] ?? [id number] ? : 1970 ?Acct:[id number] ? Age/Sex: 54 / M ?ADM Date: 12/27/24 ? Loc: HO.MRI ? Attending Dr: Vladimir Tao MD ? Ordering Physician: Vladimir Tao MD ?? Date of Service: 10/17/24 ?? Procedure(s): MR lumbar spine wo con ?? Accession Number(s): [id number] ? cc: Milana Mata DO; Vladimir Tao [...] DD/ 09 ? TD/TT: 10/17/24 1935 ? Safety Director: ? Procedure Note Donotuseinterpreter, Image - 10/28/2024 [place] [id number] Magnetic Resonance Report Signed Patient: Patrick Osuna#: [id number] : 1970Acct:[id number] Age/Sex: 54 / MADM Date: 10/17/24 Loc: HO.MRI Attending Dr: Vladimir Tao MD Ordering Physician: Vladimir Tao MD Date of Service: 10/17/24 Procedure(s): MR lumbar spine wo con Accession Number(s): [id number] cc: Milana Mata DO; Vladimir Tao MD [...] OV> 10/28/24 1510 DD/ 09 TD/TT: 10/17/241934 Safety Director: [facility] External Provider IMG MRI PROCEDURES Final Result * Hepatitis C Antibody with Reflex to HCV, RNA, Quantitative, Real-Time PCR (07/28/2024 10:21 AM EDT) Hepatitis C Antibody Nonreactive Nonreactive [facility] Comment:Antibodies to HCV no t detected; does not exclude early acuteHCV infection. Blood Venous blood specimen / Unknown 07/28/2024 10:21 AM EDT 07/28/2024 11:15 AM EDT Milana Mata DO LAB BLOOD ORDERABLES Final R esult [facility] [place], [place] [phone] * HIV-1/2 Antigen and Antibodies, Fourth [...] below the limit ofdetection of this assay.The [place] HIV Ag/Ab Combo assay result andsupplemental assay results should be interpreted inconjunction with the patient's clinical presentation,history and other laboratory results. If the results areinconsistent with clinical evidence, additional testing issuggested to confirm the result. Blood Venous blood specimen / Unknown 07/28/2024 10:21 AM EDT 07/28/2024 11:15 AM EDT us Milana Mata DO LAB BLOOD ORDERABLES Final R esult [facility] [address] [place] [phone] * (ABNORMAL) Lipid Panel, Standard (07/28/2024 10:21 AM EDT) Triglycerides 116 <150 mg/dL [facility] Comment:Desirable Triglyceri de: less than 150 mg/dLBorderline High Triglyceride 150-199 mg/dLHigh Triglyceride: 200-499 mg/dLVery High Triglyceride: greater than or equal to 5OO mg/dL Cholesterol 127 <200 mg/dL [facility] Comment:Desirable Cholestero l: less than 200 mg/dLBorderline High Cholesterol: 200-239 mg/dLHigh Cholesterol: greater than 239 mg/dL LDL Cholesterol Calculated 67 <100 mg/dL [facility] Comment:Desirable LDL: less than 100 mg/dLNear Optimal/Above Optimal LDL: 110- 129 mg/dLBorderline High LDL: 130-159 mg/dLHigh LDL: 160-189 mg/dLVery High LDL: greater than or equal to 190 mg/dL HDL Cholesterol 37(L) >40 mg/dL [facility] Comment:Desirable HDL: great er than 40 mg/dL Note: This HDL assay may give artificially low results in patients with liver disease. Blood Venous blood specimen / Unknown 07/28/2024 10:21 AM EDT 07/28/2024 10:55 AM EDT us Milana Adolfo DO LAB BLOOD ORDERABLES Final R esult Performing Organization Address [facility]/ZIP Co de Phone Number [facility] [address] [place] [phone] * Albumin, Random Urine W/Creatinine (07/28/2024 10:13 AM EDT) Creatinine, Urine 102.76 mg/dL [facility] Microalbumin Urine <5.0 mg/L [facility] Microalbum Creatinine Ratio Ur TNP <30 ug/mg cr [facility] Comment:Unable to calculate albumin/creatinine ratio due to lowmicroalbumin or creatinine result. Urine (Urine, Random) 07/28/2024 10:13 AM EDT 07/28/2024 10:55 AM EDT us Milana Mata DO LAB URINE ORDERABLES Final R esult Performing Organization Address [facility] Co de Phone Number [facility] [address] [place] [phone] * (ABNORMAL) Fecal Globin by Immunochemistry (11/15/2023 9:03 AM EST) Fecal Globin By Immunochemistry SEE NOTE(A) [facility] Comment:FECAL GLOBIN BY IMMU NOCHEMISTRY Micro Number: [id number] Test Status: Final Specimen Source: Not given Specimen Quality: Adequate Fecal Globin: DetectedTHIS TEST WAS PERFORMED AT:[employer] [place] [phone] VILLALPANDO MD Stool Rectal contents / Unknown 11/15/2023 9:03 AM EST 11/15/2023 12:27 PM EST us Fátima MONGEP LAB BODY FLUIDS AND STOOLS ORD ERABLES Final Result Performing Organization Address [facility] Co de Phone Number [facility] [address] [place] [phone] * Colonoscopy (04/19/2023 2:32 PM EDT) Colonoscopy Normal Normal Comment:Repeat in 5 years us Historical Provider MD HEALTH MAINTENANCE Final Result from Last 3 Months or Most Recently Relevant to Health Maintenance Insurance [facility] MEDICAID STAND ADULT Care Teams Boring Inspector Relationship Specialty Start Date End Date Milana Mata DO [address] [place] [phone] PCP - General Family Medicine 07/02/24
--- OUTSIDE RECORDS SUMMARY | 2025-01-06 07:59 | XMS_ITS | Encounter Summary ---
Author Organization [employer] Address [address] [facility] [facility] [address] 7t [place] [address] Care Team Providers Care Hairspring Truing Inspector Name Role Phone Milana Mata DO Primary Care Provider [phone] Encounter Details Date Type Department Care Team ([facility] st Contact Info) Description 12/31/2024 Telephone [facility] [address] [place] [address] Milana Mata DO [address] [place] [address] Social History Tobacco Use Types Packs/Day Years [...] documented as of this encounter Care Teams Hairspring Truing Inspector Relationship Specialty Start Date End Date Milana Mata DO [address] [place] [address] PCP - General Family Medicine 07/02/24 documented as of this encounter
--- OUTSIDE RECORDS SUMMARY | 2025-01-06 07:59 | XMS_ITS | Encounter Summary ---
Author Organization [employer] Address [address] [facility] [facility] [address] [place] [address] Care Team Providers Care Fish Cake Maker Name Role Phone Sandra De Jesus Primary Care Provider + Name, Daniel العراقي Primary Care Provider [phone] Milana Mata DO Primary Care Provider [phone] Encounter Details Date Type Department Care Team (Late st Contact Info) Description 09/03/2023 Abstract [facility] [address] [place], [place] [phone] Iram Resendiz Social History Tobacco Use Types [...] as of this encounter Care Teams Fish Cake Maker Relationship Specialty Start Date End Date Sandra De Jesus FNP [address] [place] [address] PCP - General Family Medicine 07/06/23 06/23/24 Daniel Krause MD [address] [place] [address] PCP - General Internal Medicine 06/24/24 07/01/24 Milana Mata DO [address] [place] [address] PCP - General Family Medicine 07/02/24 documented as of this encounter
--- OUTSIDE RECORDS SUMMARY | 2025-01-06 07:59 | XMS_ITS | Encounter Summary ---
Author Organization [employer] Address [address] [facility] 7t [place] [address] Care Team Providers Care Dragline Engineer Name Role Phone Sandra De Jesus Primary Care Provider [phone] Name, Daniel العراقي Primary Care Provider [phone] Milana Mata DO Primary Care Provider [phone] Encounter Details Date Type Department Care Team (Late st Contact Info) Description 02/05/2024 Telephone [facility] [address] [place] [address] Sandra De Jesus FNP [address] [place] [address] Social History Tobacco Use Types Packs/Day Years [...] documented as of this encounter Care Teams Dragline Engineer Relationship Specialty Start Date End Date Sandra De Jesus FNP [address] [place] [address] PCP - General Family Medicine 07/06/23 06/23/24 Daniel Krause MD [address] [place] [address] PCP - General Internal Medicine 06/24/24 07/01/24 Milana Mata DO [address] [place] [address] PCP - General Family Medicine 07/02/24 documented as of this encounter
--- OUTSIDE RECORDS SUMMARY | 2025-01-06 07:59 | XMS_ITS | Encounter Summary ---
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 Isidra verbally greed and understood. * Telephone Encounter - Alexys Orozco RN - 05/13/2024 9:09 AM EDT T/C x 2 am to [phone] for isidra for below message, No answer. Facility Administrator sent message to call back on [phone]. T/C to lissett to inform that [facility] is trying to call [employer]LECT[employer]IC IN[employer]UMENT [employer]ES [employer] company for below message , but not able to contact them. LVM to call back on [phone]. Lissett states she is going to call them, Lissett also informed if [employer]LECTRONIC INSTRUMENT TRADES WORK[employer] company / [employer] is missing any sign please fax documents on [phone] to get sign from PCP. Lissett states she is going to call to company. * Telephone Encounter - Lorena Waldrop - 05/12/2024 4:06 PM EDT Tc from pt spouse regarding message below. * Telephone Encounter - Alexys Orozco RN - 05/12/2024 10:05 AM EDT T/C to [phone] for isidra for below message, No answer. Facility Administrator sent message to call back on [phone]. * Telephone Encounter - Humberto Arauz - 05/12/2024 9:52 AM EDT Tc from [facility] requesting a status on PCP order form. Please see notes. Please contact at [phone] ( ask for isidra ) * Telephone Encounter - Brenda Gifford - 05/09/2024 12:35 PM EDT Tc from pt and Liss[employer] requesting a call back in regards below message. Please contact at [phone] * Telephone Encounter - Alexys Orozco RN - 05/06/2024 4:21 PM EDT T/C to pt. For below message, pt. States his [employer]LECTRONIC INSTRUMENT TRADES WORK[employer] company called him and states PCP discontinue the service for ELECTRONIC INSTRUMENT TRADES WORKER services, pt. States he is having upcoming surgery and needs ELECTRONIC INSTRUMENT TRADES WORKER services. RN cannotsee any notes that says [...] documented as of this encounter Care Teams Division Controller Relationship Specialty Start Date End Date Sandra De Jesus FNP [address] [place] [address] PCP - General Family Medicine 07/06/23 06/23/24 Name, MD Daniel [address] [place] [address] PCP - General Internal Medicine 06/24/24 07/01/24 Milana Mata DO [address] [place] [address] PCP - General Family Medicine 07/02/24 documented as of this encounter
--- OUTSIDE RECORDS SUMMARY | 2025-01-06 07:59 | XMS_ITS | Encounter Summary ---
Author Organization [employer] Address [address] [facility] 7t [place] [address] Care Team Providers Care Home Stager Name Role Phone Milana Mata Primary Care Provider [phone] Encounter Details Date Type Department Care Team (Latest Contact Info) Description 01/05/2025 Travel Social History Tobacco Use Types Packs/Day [...] documented as of this encounter Care Teams Home Stager Relationship Specialty Start Date End Date Milana Mata DO [address] [place] [address] PCP - General Family Medicine 07/02/24 documented as of this encounter
--- OUTSIDE RECORDS SUMMARY | 2025-01-06 07:59 | XMS_ITS | Encounter Summary ---
Author Organization [employer] Address [address] [facility] 7t [place] [address] Care Team Providers Care Japanese Professor Name Role Phone Campbell Salguero Primary Care Provider Unavail Sandra Mercado Primary Care Provider + Daniel Krause MD Primary Care Provider [phone] Milana Mata DO Primary Care Provider [phone] Encounter Details Date Type Department Care Team (Late st Contact Info) Description 04/25/2023 Telephone [facility]INE [address] [place] [address] Earlene Lange LPN Social History Tobacco Use [...] documented as of this encounter Care Teams Japanese Professor Relationship Specialty Start Date End Date Campbell Salguero AGNP PCP - General Family Medicine 09/25/22 07/05/23 Sandra De Jesus FNP [address] [place] [address] PCP - General Family Medicine 07/06/23 06/23/24 Daniel Krause MD [address] [place] [address] PCP - General Internal Medicine 06/24/24 07/01/24 Milana Mata DO [address] [place] [address] PCP - General Family Medicine 07/02/24 documented as of this encounter
--- OUTSIDE RECORDS SUMMARY | 2025-01-06 07:59 | XMS_ITS | Encounter Summary ---
Author Organization [employer] Address 75 [facility] 7t [place] [address] Care Team Providers Care Payroll Administrative Assistant Name Role Phone Adolfo Milana Primary Care Provider [phone] Encounter Details Date Type Department Care Team ([facility] st Contact Info) Description 01/02/2025 Population Health Risk Score [facility] (C3) Department [address] [facility] 7 [place] [id number] Provider, Population Health Generic Social History Tobacco [...] documented as of this encounter Care Teams Payroll Administrative Assistant Relationship Specialty Start Date End Date Milana Mata DO [address] [place] [address] PCP - General Family Medicine 07/02/24 documented as of this encounter
--- OUTSIDE RECORDS SUMMARY | 2025-01-06 07:59 | XMS_ITS | Encounter Summary ---
Author Organization [employer] Address 75 [facility] 7t [place] [address] Care Team Providers Care Pellet Machine Operator Name Role Phone Sandra De Jesus Primary Care Provider + Jimi, Daniel العراقي Primary Care Provider [phone] Milana Mata DO Primary Care Provider [phone] Reason for Visit * Reason Comments Med Refill Encounter Details Date Type Department Care Team (Late st Contact Info) Description 09/30/2023 Refill [facility] [address] [place] [address] Campbell Salguero AGNP Social History Tobacco Use [...] documented as of this encounter Care Teams Pellet Machine Operator Relationship Specialty Start Date End Date Sandra De Jesus FNP [address] [place] [address] PCP - General Family Medicine 07/06/23 06/23/24 Daniel Krause MD 230 [place] [address] PCP - General Internal Medicine 06/24/24 07/01/24 Milana Mata DO [address] [place] [address] PCP - General Family Medicine 07/02/24 documented as of this encounter
--- OUTSIDE RECORDS SUMMARY | 2025-01-06 07:59 | XMS_ITS | Encounter Summary ---
Author Organization [employer] Address [address] [place] [address] 7t [place] [address] Care Team Providers Care Biodiesel Plant Operations Engineer Name Role Phone Jose M Campbell VERONICA Primary Care Provider Unavail Sandra MercadoP Primary Care Provider [phone] NameDaniel MD Primary Care Provider [phone] Milana Mata DO Primary Care Provider + [phone] Reason for Visit * Reason Comments Med Refill Encounter Details Date Type Department Care Team (Late st Contact Info) Description 07/04/2023 Refill [facility] 230 [place], [place] [phone] Name, MD Daniel [address] [place] [address] Social History Tobacco Use Types Packs/Day Years [...] documented as of this encounter Care Teams Biodiesel Plant Operations Engineer Relationship Specialty Start Date End Date Campbell Salguero AGNP PCP - General Family Medicine 09/25/22 07/05/23 Sandra De Jesus FNP 230 [place] [address] PCP - General Family Medicine 07/06/23 06/23/24 Daniel Krause MD [address] [place] [address] PCP - General Internal Medicine 06/24/24 07/01/24 Milana Mata DO 230 [place] [address] PCP - General Family Medicine 07/02/24 documented as of this encounter
--- OUTSIDE RECORDS SUMMARY | 2025-01-06 07:59 | XMS_ITS | Encounter Summary ---
Author Organization [employer] Address 75 [facility] 7t [place] [address] Care Team Providers Care Sewing Department Supervisor Name Role Phone Salguero Campbell VERONICA Primary Care Provider Unavail Sandra Mercado Primary Care Provider + Daniel Krause MD Primary Care Provider [phone] Milana Mata DO Primary Care Provider [phone] Reason for Visit * Reason Comments Med Refill Encounter Details Date Type Department Care Team ([facility] st Contact Info) Description 04/05/2023 Refill [facility] [address] [place], [place] [phone] Evie Francisco MD [address] [place] [address] Allergic rhinitis, unspecified seasonality, unspecified trigger Social [...] documented as of this encounter Care Teams Sewing Department Supervisor Relationship Specialty Start Date End Date Campbell Salguero AGNP PCP - General Family Medicine 09/25/22 07/05/23 Sandra De Jesus FNP 230 [place] [address] PCP - General Family Medicine 07/06/23 06/23/24 Daniel Krause MD 230 [place] [address] PCP - General Internal Medicine 06/24/24 07/01/24 Milana Mata DO 230 [place] [address] PCP - General Family Medicine 07/02/24 documented as of this encounter
--- OUTSIDE RECORDS SUMMARY | 2025-01-06 07:59 | XMS_ITS | Encounter Summary ---
Author Organization [employer] Address 75 [facility] 7t [place] [address] Care Team Providers Care House Worker Name Role Phone Sandra De Jesus Primary Care Provider + Jimi, Daniel العراقي Primary Care Provider [phone] Milana Mata DO Primary Care Provider + Reason for Visit * Reason Comments Med Refill Encounter Details Date Type Department Care Team ([facility] st Contact Info) Description 08/01/2023 Refill [facility] 230 [place] [address] Ryan Nation MD [address] [place] [address] Social History Tobacco Use Types Packs/Day Years [...] documented as of this encounter Care Teams House Worker Relationship Specialty Start Date End Date Sandra De Jesus FNP 230 [place] [address] PCP - General Family Medicine 07/06/23 06/23/24 Daniel Krause MD 230 [place] [address] PCP - General Internal Medicine 06/24/24 07/01/24 Milana Mata DO [address] [place] [address] PCP - General Family Medicine 07/02/24 documented as of this encounter
--- OUTSIDE RECORDS SUMMARY | 2025-01-06 07:59 | XMS_ITS | Encounter Summary ---
Author Organization [employer] Address 75 [facility] 7t [place] [address] Care Team Providers Care Media Specialist Name Role Phone Milana Mata DO Primary Care Provider [phone] Encounter Details Date Type Department Care Team ([facility] st Contact Info) Description 01/05/2025 11:30 AM EDT Office Visit [facility] 230 [place], [place] [phone] Milana Mata DO 230 [place], [place] [phone] New onset type 2 diabetes mellitus (CMS/HCC) (Primary Dx) Social History Tobacco Use Types [...] Mass Index 37.48 01/05/2025 12:22 PM EDT documented in this encounter Plan of Treatment Not on file documented as of this encounter Procedures Procedure Name Priority Date/Time Associated Diagnosis Comments POCT GLYCATED HEMOGLOBIN, TOTAL Routine 01/05/2025 12:26 PM EDT New onset type 2 diabetes mellitus (CMS/HCC) POCT GLUCOSE Routine 01/05/2025 12:25 PM EDT New onset type 2 diabetes mellitus (CMS/HCC) documented in this encounter Results * (ABNORMAL) POCT HGB A1C (01/05/2025 12:26 PM EDT) Hemoglobin A1C 6.4(A) 4.0 - 6.0 % QC Media Lot # [id number] Lot# Expiration Date Blood 01/05/2025 12:2 6 PM EDT Milana Mata DO POINT OF CARE TEST ENTER/MITZI T ORDERABLES Final Result * POCT Glucose (01/05/2025 12:25 PM EDT) Glucose Blood, POC 124 60 - 200 mg/dL QC Media Lot # [id number] Lot# Expiration Date Blood Capillary blood specimen / Unknown 01/05/2025 12:25 PM EDT Result [facility] Milana Mata DO POINT OF CARE TEST ENTER/MITZI T ORDERABLES Final Result documented in this encounter Visit Diagnoses Diagnosis New onset type 2 diabetes mellitus (CMS/HCC)- Primary documented in this encounter Additional Health Concerns Assessment Noted Time PHQ-9 Depression Total Score: 0 01/01/20 25 10:51 AM EDT documented as of this encounter Care Teams Media Specialist Relationship Specialty Start Date End Date Milana Mata DO 230 [place] [address] PCP - General Family Medicine 07/02/24 documented as of this encounter
--- OUTSIDE RECORDS SUMMARY | 2025-01-06 07:59 | XMS_ITS | Encounter Summary ---
Author Organization [employer] Address 75 [facility] 7t [place] [address] Care Team Providers Care Head Sugar Reprocess Operator Name Role Phone AdolfoMilana Primary Care Provider + [phone] Reason for Visit * Reason Onset Date Comments Results 01/01/2025 Encounter Details Date Type Department Care Team ([facility] st Contact Info) Description 01/01/2025 Telephone [facility] MED[facility]INE 230 [place], [place] [phone] Cristine Savage RN [address] [place], [place] [phone] Results Social History Tobacco Use Types Packs/Day [...] EDT Tc from pt returning phone call. Kyrgyz * Telephone Encounter - Cristine Savage RN [...] documented as of this encounter Care Teams Head Sugar Reprocess Operator Relationship Specialty Start Date End Date Milana Mata DO 230 [place] [address] PCP - General Family Medicine 07/02/24 documented as of this encounter
--- OUTSIDE RECORDS SUMMARY | 2025-01-06 07:59 | XMS_ITS | Encounter Summary ---
Author Organization [employer] Address 75 [facility] 7t [place] [address] Care Team Providers Care Privacy Attorney Name Role Phone Campbell Salguero Primary Care Provider Unavail Sandra Mrecado Primary Care Provider + NameDaniel MD Primary Care Provider [phone] Milana Mata DO Primary Care Provider + [phone] Reason for Visit * Reason Onset Date Comments Nurse Triage 05/28/2023 Encounter Details Date Type Department Care Team (Late st Contact Info) Description 05/28/2023 Telephone [facility] 230 [place] [address] Campbell Salguero AGNP Nurse Triage Social History [...] 9:23 AM EDT Call to Pt with [employer] Counter Clerk ID [id number] Pt is given message from EVIN Salguero, [...] EDT Triage call Pt gives permission for STRADDLE TRUCK DRIVER, Lissett, to speak for Pt. PT was [...] accepted this outcome Please contact lissett at [phone] documented in this encounter Plan of Treatment Not on file documented as of this encounter Visit Diagnoses Diagnosis Benign prostatic hyperplasia with incomplete bladder emptying- Primary documented in this encounter Additional Health Concerns Assessment Noted Time PHQ-9 Depression Total Score: 12 023 2:23 PM EDT documented as of this encounter Care Teams Privacy Attorney Relationship Specialty Start Date End Date Campbell Salguero AGNP PCP - General Family Medicine 09/25/22 07/05/23 Sandra De Jesus FNP 230 [place] [address] PCP - General Family Medicine 07/06/23 06/23/24 Name, MD Daniel 230 [place] [address] PCP - General Internal Medicine 06/24/24 07/01/24 Milana Mata DO 230 [place] [address] PCP - General Family Medicine 07/02/24 documented as of this encounter
--- OUTSIDE RECORDS SUMMARY | 2025-01-06 07:59 | XMS_ITS | Encounter Summary ---
Author Organization [employer] Address [address] [facility] [address] 7t [place] [address] Care Team Providers Care Pump Machine Operator Name Role Phone Sandra De Jesus Primary Care Provider + Name, Daniel العراقي Primary Care Provider [phone] Milana Mata DO Primary Care Provider [phone] Encounter Details Date Type Department Care Team (Late st Contact Info) Description 05/23/2024 Orders Only [facility]S [address] [place] [address] Sandra De Jesus FNP [address] [place] [address] Cervical neck pain with evidence of disc [...] documented as of this encounter Care Teams Pump Machine Operator Relationship Specialty Start Date End Date Sandra De Jesus FNP 230 [place] [address] PCP - General Family Medicine 07/06/23 06/23/24 [place] [address] PCP - General Internal Medicine 06/24/24 07/01/24 Milana Mata DO 230 [place] [address] PCP - General Family Medicine 07/02/24 documented as of this encounter
--- OUTSIDE RECORDS SUMMARY | 2025-01-06 08:00 | XMS_ITS | Encounter Summary ---
Author Organization [employer] Address 75 [facility] 7t [place] [address] Care Team Providers Care Survey Technician Name Role Phone AdolfoMilana Primary Care Provider + [phone] Reason for Visit * Reason Comments Med Refill Encounter Details Date Type Department Care Team ([facility] st Contact Info) Description 12/24/2024 Refill [facility] MED[facility]INE 230 [place] [address] Sandra De Jesus FNP 230 [place] [address] Anxiety state Social History Tobacco Use Types [...] documented as of this encounter Care Teams Survey Technician Relationship Specialty Start Date End Date Milana Mata DO 230 [place] [address] PCP - General Family Medicine 07/02/24 documented as of this encounter
--- OUTSIDE RECORDS SUMMARY | 2025-01-06 08:00 | XMS_ITS | Encounter Summary ---
Author Organization [employer] Address 75 [facility] 7t [place] [address] Care Team Providers Care Airline Captain Name Role Phone Milana Mata Primary Care Provider [phone] Encounter Details Date Type Department Care Team [...] documented as of this encounter Care Teams Airline Captain Relationship Specialty Start Date End Date Milana Mata DO 230 [place] [address] PCP - General Family Medicine 07/02/24 documented as of this encounter
--- OUTSIDE RECORDS SUMMARY | 2025-01-06 08:00 | XMS_ITS | Encounter Summary ---
Author Organization [employer] Address 75 [facility] 7t [place] [address] Care Team Providers Care Pipe Caulker Name Role Phone Milana Mata DO Primary Care Provider [phone] Encounter Details Date Type Department Care Team ([facility] st Contact Info) Description 12/31/2024 10:45 AM EDT Office Visit [facility]INE 230 [place], [place] [phone] Milana Mata DO [address] [place], [place] [phone] Essential hypertension (Primary Dx); Other hyperlipidemia; Prediabetes; [...] the past 12 months, has t he [employer], gas, oil or water company threatened to [...] PM EDT) Hemoglobin A1c 6.5(H) <6.0 % [facility] Comment:Hemoglobin A1C Refer ence Range Adults: 4.8 - 6.0 % Non diabetic: < 6.0 % Goal: < 7.0 %Additional Action Suggested: > 8.0 %Note: Hemoglobin A1c results are invalid for patients with abnormal amounts of HbF. Blood transfusions may impact the HbA1c concentration in the patient sample. Estimated Average Glucose 140 mg/dL [facility] Comment:eAG = Estimated ave rage glucose which is %A1C expressed asaverage glucose, using the formula of the E0B-VvjzxgdChsuknw Glucose study (ADAG), Diabetes Care, Vol.31,#8,2007 Blood Venous blood specimen / Unknown 12/31/2024 12:22 PM EDT 12/31/2024 1:49 PM EDT Milana Mata DO LAB BLOOD ORDERABLES Final R esult [facility] [address] [place] [address] [phone] documented in this encounter Visit Diagnoses [...] documented as of this encounter Care Teams Pipe Caulker Relationship Specialty Start Date End Date Milana Mata DO [address] [place] [address] PCP - General Family Medicine 07/02/24 documented as of this encounter
--- OUTSIDE RECORDS SUMMARY | 2025-01-06 08:00 | XMS_ITS | Encounter Summary ---
Author Organization [employer] Address 75 [facility] 7t [place] [address] Care Team Providers Care Newspaper Vendor Name Role Phone AdolfoMilana Primary Care Provider + [phone] Reason for Visit * Reason Comments Med Refill Encounter Details Date Type Department Care Team ([facility] st Contact Info) Description 09/04/2024 Refill [facility] 230 [place], [place] [phone] Sandra De Jesus FNP [address] [place] [address] Allergic rhinitis due to other allergic trigger, [...] documented as of this encounter Care Teams Newspaper Vendor Relationship Specialty Start Date End Date Milana Mata DO [address] [place] [address] PCP - General Family Medicine 07/02/24 documented as of this encounter
--- OUTSIDE RECORDS SUMMARY | 2025-01-06 08:00 | XMS_ITS | Patient Health Record ---
Author Organization [facility] Address [address] [place] [address] Care Team Providers Care Cloth Sponger Name Role Phone Milana Mata M.D. Primary Care Provider Raphael Cortes Jr Unavailable Allergies Allergen (clinical drug ingredient) Drug/Non Drug Allergy documented on EMR Reaction Allergy Type Onset Date Status Penicillin Unknown Drug Allergy Active Results Component Value Reference Range Notes Complete Blood Count no Diff (Not yet reviewed by provider) Interpretation: Performing Lab:[facility], [address] [place] [phone] Notes/Report: White Blood Count 6.3 4.8-10.8 X10*3/uL Red Blood Count 4.75 4.60-5.80 X10*6/uL Hemoglobin 12.3 14.0-18.0 g/dl Hematocrit 37.2 42.0-52.0 % Mean Corpuscular Volume 78.3 80.0-98.0 fL Mean Corpuscular Hemoglobin 25.9 27.0-33.0 pg Mean Corpuscular HGB Conc 33.1 31.0-36.0 g/dl Red Cell Distribution Width 14.6 11.0-16.0 % Platelet Count 292 160-400 X10*3/uL Mean Platelet Volume 11.6 9.4-12.4 fL NRBC Pct Auto 0.0 0.0-0.2 /100WBC NRBC Abs Auto 0.000 0.0-0.012 X10*3/uL Liver Panel (Not yet review ed by provider) Interpretation: Performing Lab:[facility], [address] [place] [phone] Notes/Report: Bilirubin Total 0.3 0.0-1.0 mg/dL Bilirubin Direct 0.1 0.0-0.5 mg/dL Aspartate Amino Transferase 24 5-37 U/L Alanine Aminotransferase 20 0-40 U/L Total Protein 8.1 6.5-8.0 g/dL Albumin Level 4.3 3.5-5.0 g/dL Alkaline Phosphatase 99 39-117 U/L Blood Urea Nitrogen (Not yet reviewed by provider) Interpretation: Performing Lab:[address] [phone] Notes/Report: Blood Urea Nitrogen 13 9-16 mg/dL Creatinine (Not yet reviewed by provider) Interpretation: Performing Lab:[address] [phone] Notes/Report: Creatinine 0.78 0.5-1.4 mg/dL Estimated Glomerular Filt Rate > 60 Chronic Kidney Disease: Estimated GFR < 60 mL/min/1.73m2 Severe Kidney Disease: Estimated GFR < 15 mL/min/1.73m2 Lipase (Not yet reviewed by provider) Interpretation: Performing Lab:[address] [address] Notes/Report: Lipase 20 8-78 U/L Reason For Referral Referring Provider First Name Fátima Referring Provider [facility]erred Organization [facility] Referred Provider Raphael Powell Jr Referred Address [address] [place] [phone], Referred Provider Specialty Gastroentero logy General Notes Katherine Kraus 024 07:59:40 AM EDT > requested a [facility] referral from [facility] for office visit with Dr. Powell on [phone] screening colon Referral Priority Routine Medications Medication [...] Problem Status W/U Status Risk Notes Problem 9209738 Diverticulitis o f large intestine without perforation or abscess without bleeding (K57.32) Active confirmed Problem 327592502 Generalized abdominal pain (R10.84) Active confirmed Problem 502740379 Diverticulitis (K57.92) Active confirmed Problem 155748501 Family history o f colon cancer (Z80.0) Active confirmed Problem 705069750 Acute diverticulitis (K57.92) Active confirmed Problem 60007245 Hypertension, unspecified type (I10) Active confirmed Problem 429820917 Gas bloat syndro me (K92.89) Active confirmed Vital Signs Temperature 98.7 degrees Fahrenheit 11/12/2024 Blood pressure diastolic 00 mm Hg 11/12/2024 Height 65 in 11/12/2024 Blood pressure systolic 000 mm Hg 11/12/2024 Weight 224 lb 2 oz lbs 11/12/2024 BMI 37.29 kg/m2 11/12/2024 Encounters Encounter Location Date Provider Diagnosis [facility] [address] [place] [phone] 11/12/2024 Raphael Powell Jr Generalized abdominal pain R10.84 [facility] [address] [place] [phone] 04/11/2024 Raphael Powell Jr [facility] [address] [place] [address] 07/21/2024 Raphael Powell Jr Assessments Encounter Date [...] and we will get his records from [facility] where he had sigmoid resection. Plan Of Treatment Pending Test Test Name Order Date BUN 09/25/2018 BUN 11/12/2024 CREATININE 11/12/2024 CREATININE 09/25/2018 LIVER PROFILE 11/12/2024 LIPASE 11/12/2024 CBC w DIFF 09/25/2018 CBC w/o DIFF 11/12/2024 CT ABD & PELVIS WITH CONTRAST 11/12/2024 Complete Blood Count no Diff 01/02/2025 Liver Panel 01/02/2025 Blood Urea Nitrogen 01/02/2025 Creatinine 01/02/2025 Lipase 01/02/2025 Future Test Test Name Order Date COLONOSCOPY 09/25/2018 COLONOSCOPY 11/22/2022 Next Appt Details Provider Name:Raphael yi Jr, 05/13/2025 10:40:00 AM, [address], [address], [place], [address], Insurance Providers Payer Name Payer Address Payer Phone Subscriber Number Group Number Insured Name Patient Relationship to Insured Coverage Start Date Coverage End Date MEDICA[employer] OF [employer] [address] [place] [phone] [id number] ORAL SOARES Self - patient is the [...]
[2025-01-06] MEDS: Barium Sulfate Oral (Mocha) 450 ML ORAL.SUSP PO ×2 (10:37)
[2025-01-06] MEDS: iohexoL 350 MG/ML 100 ML INFUS..BTL IV (10:38)
== END 2025-01-06 07:56 | disposition home or self-care (01) ==
LOC: HO.CT 07:55
PROVIDERS: PCP Family Medicine; Visit Provider Internal Medicine Gastroenterology
DX: R10.84 Generalized abdominal pain (principal)
CPT/HCPCS: 74177; Q9967

== ENCOUNTER → 2025-01-06 07:57 | Outpatient (BNV) | payer MEDICAID, SELFPAY | PROVIDERS: PCP Family Medicine; Visit Provider Radiology Diagnostic Radiology | DX: R10.9 Unspecified abdominal pain (principal) | CPT/HCPCS: 74177 ==

== ENCOUNTER 2025-02-20 13:35 | Outpatient (REF) | payer MEDICAID, SELFPAY ==
--- OUTSIDE RECORDS SUMMARY | 2025-02-20 13:50 | XMS_ITS | Encounter Summary ---
Author Organization [employer] Address [address] [facility] 7t [place] [address] Care Team Providers Care Pipe Fitter Helper Name Role Phone Sandra De Jesus Primary Care Provider [phone] Jimi, Daniel العراقي Primary Care Provider [phone] Milana Mata DO Primary Care Provider + [phone] Reason for Visit * Reason Onset Date Comments [employer] Reevaluation 05/06/2024 Encounter Details Date Type Department Care Team (Late st Contact Info) Description 05/06/2024 Telephone [facility] MEDICINE [address] [place], [place] [phone] Sandra De Jesus FNP [address] [place], [place] [phone] [employer] Reevaluation Social History Tobacco Use Types Packs/Day [...] 05/13/2024 9:28 AM EDT Return call from [employer], explain that client want to re-start foster care program, Isidra advised to fax form to [facility], provider will review it and will contact agency if needed anything. Isidra verbally greed and understood. * Telephone Encounter - Alexys Orozco RN - 05/13/2024 9:09 AM EDT T/C x 2 am to [phone] for isidra for below message, No answer. Rn Critical Care sent message to call back on [phone]. T/C to lissett to inform that [facility] is trying to call [employer] company for below message , but not able to contact them. LVM to call back on [phone]. Lissett states she is going to call them, Lissett also informed if [employer] company / [employer] is missing any sign please fax documents on [phone] to get sign from PCP. Lissett states she is going to call to company. * Telephone Encounter - Lorena Waldrop - 05/12/2024 4:06 PM EDT Tc from pt spouse regarding message below. * Telephone Encounter - Alexys Orozco RN - 05/12/2024 10:05 AM EDT T/C to [phone] for isidra for below message, No answer. Rn Critical Care sent message to call back on [phone]. * Telephone Encounter - Humberto Arauz - 05/12/2024 9:52 AM EDT Tc from [facility] requesting a status on PCP order form. Please see notes. Please contact at [phone] ( ask for isidra ) * Telephone Encounter - Brenda Gifford - 05/09/2024 12:35 PM EDT Tc from pt and Lissett requesting a call back in regards below message. Please contact at [phone] * Telephone Encounter - Alexys Orozco RN - 05/06/2024 4:21 PM EDT T/C to pt. For below message, pt. States his [employer] company called him and states PCP discontinue the service for TEACHER [employer] services, pt. States he is having upcoming surgery and needs TEACHER [employer] services. RN cannotsee any notes that says [...] Care Team (Late st Contact Info) Description 03/20/2025 10:00 AM EDT Telemedicine [facility] MEDICINE [address] [place] [address] Milana Mata DO [address] [place] [address] documented as of this encounter Visit Diagnoses Not on filedocumented in this encounter Additional Health Concerns Assessment Noted Time PHQ-9 Depression Total Score: 8 11/15/19 24 9:20 AM EST documented as of this encounter Care Teams Pipe Fitter Helper Relationship Specialty Start Date End Date Sandra De Jesus FNP [address] [place] [address] PCP - General Family Medicine 07/06/23 06/23/24 Name, MD Daniel [address] [place] [address] PCP - General Internal Medicine 06/24/24 07/01/24 Milana Mata DO [address] [place] [address] PCP - General Family Medicine 07/02/24 documented as of this encounter
--- OUTSIDE RECORDS SUMMARY | 2025-02-20 13:50 | XMS_ITS | Encounter Summary ---
Author Organization [employer] Address 75 [facility] 7t [place] [address] Care Team Providers Care Neurology Teacher Name Role Phone Sandra De Jesus Primary Care Provider [phone] Name, Daniel العراقي Primary Care Provider [phone] Milana Mata DO Primary Care Provider + [phone] Encounter Details Date Type Department Care Team (Late st Contact Info) Description 02/05/2024 Telephone [facility] MEDICINE [address] [place] [address] Sandra De Jesus FNP [address] [place] [address] Social History Tobacco Use Types Packs/Day Years [...] Info) Description 03/20/2025 10:00 AM EDT Telemedicine [facility] MEDICINE [address] [place] [address] Milana Mata DO 230 [place] [address] documented as of this encounter Visit Diagnoses Not on filedocumented in this encounter Additional Health Concerns Assessment Noted Time PHQ-9 Depression Total Score: 8 11/15/19 24 9:20 AM EST documented as of this encounter Care Teams Neurology Teacher Relationship Specialty Start Date End Date Sandra De Jesus FNP [address] [place] [address] PCP - General Family Medicine 07/06/23 06/23/24 Daniel Krause MD [address] [place] [address] PCP - General Internal Medicine 06/24/24 07/01/24 Milana Mata DO [address] [place] [address] PCP - General Family Medicine 07/02/24 documented as of this encounter
--- OUTSIDE RECORDS SUMMARY | 2025-02-20 13:50 | XMS_ITS ---
Author Organization [facility] Address [address] [place] [address] Care Team Providers Care Pension Examiner Name Role Phone Milana Mata M.D. Primary Care Provider Fabiola vailaRaphael Esparza Jr Unavailable REASON FOR VISIT Pt no show Encounters Encounter Location Date Provider Diagnosis [facility] [address] [place] [address] 07/21/2024 Raphael Powell Jr Plan Of Treatment Next Appt Details Provider Name:Raphael yi Jr, 05/13/2025 10:40:00 AM, [address], [address], [place], [address], Progress Notes * ORLA SOARESDOB:1970 (54 yo M)Acc No.[id number]:07/21/2024 Patient:?ORAL SOARES :1970???Age:54 Y???Sex:Male Address:[address] [place] [address] [address], [place], [address] * true * Date:? Generated for Print[employer] jose angel/Filippo/eTransmitting on:?02/20/2025 12:27 PM EDT
--- OUTSIDE RECORDS SUMMARY | 2025-02-20 13:50 | XMS_ITS | Encounter Summary ---
Author Organization [employer] Address [address] [facility] 7t [place] [address] Care Team Providers Care Mammal Control Agent Name Role Phone Sandra De Jesus Primary Care Provider + Jimi, Daniel العراقي Primary Care Provider [phone] Mialna Mata DO Primary Care Provider + Reason for Visit * Reason Comments Med Refill Encounter Details Date Type Department Care Team (Late st Contact Info) Description 09/30/2023 Refill [facility] MEDICINE [address] [place] [address] Campbell Salguero AGNP Social History Tobacco Use [...] Info) Description 03/20/2025 10:00 AM EDT Telemedicine [facility] MEDICINE 230 [place] [address] Milana Mata DO 230 [place] [address] documented as of this encounter Visit Diagnoses Not on filedocumented in this encounter Additional Health Concerns Assessment Noted Time PHQ-9 Depression Total Score: 12 023 2:23 PM EDT documented as of this encounter Care Teams Mammal Control Agent Relationship Specialty Start Date End Date Sandra De Jesus FNP [address] [place] [address] PCP - General Family Medicine 07/06/23 06/23/24 Name, MD Daniel [address] [place] [address] PCP - General Internal Medicine 06/24/24 07/01/24 Milana Mata DO [address] [place] [address] [phone] PCP - General Family Medicine 07/02/24 documented as of this encounter
--- OUTSIDE RECORDS SUMMARY | 2025-02-20 13:50 | XMS_ITS | Encounter Summary ---
Author Organization [employer] Address 75 [facility] 7t [place] [address] Care Team Providers Care Workday Senior Associate Name Role Phone Sandra De Jesus Primary Care Provider + Name, Daniel العراقي Primary Care Provider [phone] Milana Mata DO Primary Care Provider + [phone] Reason for Visit * Reason Comments Med Refill Encounter Details Date Type Department Care Team ([facility] st Contact Info) Description 10/21/2023 Refill [facility] MEDICINE [address] [place], [place] [phone] Sandra De Jesus FNP [address] [place], [place] [phone] Social History Tobacco Use Types Packs/Day Years [...] Info) Description 03/20/2025 10:00 AM EDT Telemedicine [facility] MEDICINE [address] [place] [address] Milana Mata DO 230 [place] [address] documented as of this encounter Visit Diagnoses Not on filedocumented in this encounter Additional Health Concerns Assessment Noted Time PHQ-9 Depression Total Score: 12 023 2:23 PM EDT documented as of this encounter Care Teams Workday Senior Associate Relationship Specialty Start Date End Date Sandra De Jesus FNP [address] [place] [address] PCP - General Family Medicine 07/06/23 06/23/24 Daniel Krause MD [address] [place] [address] PCP - General Internal Medicine 06/24/24 07/01/24 Milana Mata DO [address] [place] [address] PCP - General Family Medicine 07/02/24 documented as of this encounter
--- OUTSIDE RECORDS SUMMARY | 2025-02-20 13:50 | XMS_ITS | Encounter Summary ---
Author Organization [employer] Address [address] [facility] [address] 7t [place] [address] Care Team Providers Care Head Rigger Name Role Phone Sandra De Jesus Primary Care Provider + Name, Daniel العراقي Primary Care Provider [phone] Milana Mata DO Primary Care Provider [phone] Encounter Details Date Type Department Care Team (Late st Contact Info) Description 05/23/2024 Orders Only [facility]S [address] [place] [address] Sandra De Jesus FNP [address] [place] [address] Cervical neck pain with evidence of disc [...] Info) Description 03/20/2025 10:00 AM EDT Telemedicine [facility] MEDICINE [address] [place] [address] Milana Mata DO 230 [place] [address] documented as of this encounter Visit Diagnoses Diagnosis Cervical neck pain with evidence of disc disease- Primary Other and unspecified disc disorder of cervical region documented in this encounter Additional Health Concerns Assessment Noted Time PHQ-9 Depression Total Score: 8 11/15/19 9:20 AM EST documented as of this encounter Care Teams Head Rigger Relationship Specialty Start Date End Date Sandra De Jesus FNP [address] [place] [address] PCP - General Family Medicine 07/06/23 06/23/24 Daniel Krause MD [address] [place] [address] PCP - General Internal Medicine 06/24/24 07/01/24 Milana Mata DO [address] [place] [address] PCP - General Family Medicine 07/02/24 documented as of this encounter
--- OUTSIDE RECORDS SUMMARY | 2025-02-20 13:50 | XMS_ITS | Encounter Summary ---
Author Organization [employer] Address [address] [facility] 7t [place] [address] Care Team Providers Care Merchandise Coordinator Name Role Phone Sandra De Jesus Primary Care Provider + Jimi, Daniel العراقي Primary Care Provider [phone] Milana Mata DO Primary Care Provider [phone] Reason for Visit * Reason Comments Med Refill Encounter Details Date Type Department Care Team ([facility] st Contact Info) Description 08/01/2023 Refill [facility] [address] [place] [address] Ryan Nation MD [address] [place] [address] Social History Tobacco Use Types Packs/Day Years [...] Info) Description 03/20/2025 10:00 AM EDT Telemedicine [facility] MEDICINE [address] [place], [place] [phone] Milana Mata DO 230 [place] [address] documented as of this encounter Visit Diagnoses Not on filedocumented in this encounter Additional Health Concerns Assessment Noted Time PHQ-9 Depression Total Score: 12 023 2:23 PM EDT documented as of this encounter Care Teams Merchandise Coordinator Relationship Specialty Start Date End Date Sandra De Jesus FNP [address] [place], [place] [phone] PCP - General Family Medicine 07/06/23 06/23/24 Daniel Krause MD [address] [place] [address] [phone] PCP - General Internal Medicine 06/24/24 07/01/24 Milana Mata DO 230 [place] [address] PCP - General Family Medicine 07/02/24 documented as of this encounter
--- OUTSIDE RECORDS SUMMARY | 2025-02-20 13:50 | XMS_ITS | Encounter Summary ---
Author Organization [employer] Address [address] [facility] [address] 7t [place] [address] Care Team Providers Care Cell Biologist Name Role Phone Sandra De Jesus Primary Care Provider + Name, Daniel العراقي Primary Care Provider [phone] Milana Mata DO Primary Care Provider [phone] Encounter Details Date Type Department Care Team (Late st Contact Info) Description 09/03/2023 Abstract [facility]INE [address] [place] [address] Iram Resendiz Social History Tobacco Use Types [...] Info) Description 03/20/2025 10:00 AM EDT Telemedicine [facility] [address] [place] [address] Milana Mata DO 230 [place] [address] documented as of this encounter Visit Diagnoses Not on filedocumented in this encounter Additional Health Concerns Assessment Noted Time PHQ-9 Depression Total Score: 12 023 2:23 PM EDT documented as of this encounter Care Teams Cell Biologist Relationship Specialty Start Date End Date Sandra De Jesus FNP 230 [place] [address] PCP - General Family Medicine 07/06/23 06/23/24 NameDaniel MD [address] [place] [address] PCP - General Internal Medicine 06/24/24 07/01/24 Milana Mata DO 230 [place], [place] [phone] PCP - General Family Medicine 07/02/24 documented as of this encounter
--- OUTSIDE RECORDS SUMMARY | 2025-02-20 13:50 | XMS_ITS | Encounter Summary ---
Author Organization [employer] Address [address] [facility] 7t [place] [address] Care Team Providers Care Natural Resources Manager Name Role Phone AdolfoMilana Primary Care Provider + [phone] Reason for Visit * Reason Comments Med Refill Encounter Details Date Type Department Care Team ([facility] st Contact Info) Description 09/04/2024 Refill [facility] [address] [place], [place] [phone] Sandra De Jesus FNP 230 [place] [address] Allergic rhinitis due to other allergic trigger, [...] Info) Description 03/20/2025 10:00 AM EDT Telemedicine [facility] MEDICINE 230 [place] [address] Milana Mata DO 230 [place] [address] documented as of this encounter Visit Diagnoses Diagnosis Allergic rhinitis due to other allergic trigger, unspecified seasonality documented in this encounter Additional Health Concerns Assessment Noted Time PHQ-9 Depression Total Score: 8 11/15/19 24 9:20 AM EST documented as of this encounter Care Teams Natural Resources Manager Relationship Specialty Start Date End Date Milana Mata DO 230 [place] [address] PCP - General Family Medicine 07/02/24 documented as of this encounter
--- OUTSIDE RECORDS SUMMARY | 2025-02-20 13:50 | XMS_ITS ---
Author Organization [facility] Address [address] [place] [address] Care Team Providers Care Shoe Cementer Name Role Phone Milana Mata M.D. Primary [...] Problem Status W/U Status Risk Notes Problem [id number] Generalized abdominal pain (R10.84) Active confirmed Vital Signs Temperature 98.7 degrees Fahrenheit 11/12/19 25 Blood pressure systolic 000 mm Hg 11/12/19 25 Blood pressure diastolic 00 mm Hg 025 Height 65 in 11/12/2024 Weight 224 lb 2 oz lbs 11/12/2024 BMI 37.29 kg/m2 11/12/2024 Encounters Encounter Location Date Provider Diagnosis [facility] [address] [place] [address] 11/12/2024 Raphael Powell Jr Generalized abdominal pain [...] and we will get his records from [facility] where he had sigmoid resection. Plan [...] 10:40:00 AM, [address], [address], [place], [address], Progress Notes * REYNALDO SOARESDOB:1970 (54 yo M)Acc No.[id number]:11/12/2024 Progress Notes Patient:?REYNALDO SOARES Provider:?Raphael Powell MD :1970???Age:54 Y???Sex:Male Gagan e:11/12/2024 Address:[address] [place] [address], [facility] Pcp:Milana Mata M.D. Subjective: * Chief Complaints: [...] and we will get his records from [facility] where he had sigmoid resection. Plan: [...] MD Date:?0 11/12/2024 Generated for Phil walter/Filippo/eTransmitting on:?02/20/2025 12:27 PM EDT History and Physical Notes * [...]
--- OUTSIDE RECORDS SUMMARY | 2025-02-20 13:51 | XMS_ITS | Encounter Summary ---
Author Organization [employer] Address [address] [place] [address] 7t [place] [address] Care Team Providers Care Maintainer Central Office Name Role Phone Jose M Campbell VERONICA Primary Care Provider Unavail Sandra MercadoP Primary Care Provider [phone] NameDaniel MD Primary Care Provider [phone] Milana Mata DO Primary Care Provider + [phone] Reason for Visit * Reason Comments Med Refill Encounter Details Date Type Department Care Team (Late Contact Info) Description 07/04/2023 Refill [facility] MEDICINE 230 [place] [address] Name, MD Daniel [address] [place] [address] Social History Tobacco Use Types Packs/Day Years [...] Department Care Team (Late Contact Info) Description 03/20/2025 10:00 AM EDT Telemedicine [facility] [address] [place] [address] [place] [address] Milana Mata DO 230 [place] [address] documented as of this encounter Visit Diagnoses Not on filedocumented in this encounter Additional Health Concerns Assessment Noted Time PHQ-9 Depression Total Score: 12 023 2:23 PM EDT documented as of this encounter Care Teams Maintainer Central Office Relationship Specialty Start Date End Date Campbell Salguero AGNP PCP - General Family Medicine 09/25/22 07/05/23 Sandra De Jesus FNP 230 [place] [address] PCP - General Family Medicine 07/06/23 06/23/24 Name, [place] [address] PCP - General Internal Medicine 06/24/24 07/01/24 Milana Mata DO [address] [place] [address] PCP - General Family Medicine 07/02/24 documented as of this encounter
--- OUTSIDE RECORDS SUMMARY | 2025-02-20 13:51 | XMS_ITS | Encounter Summary ---
Author Organization [email or web address] Address [address] [facility] 7t [place] [address] Care Team Providers Care Trim Operator Name Role Phone Campbell Salguero Primary Care Provider Unavail Sandra Mercado Primary Care Provider + Daniel Krause MD Primary Care Provider [phone] Milana Mata DO Primary Care Provider [phone] Encounter Details Date Type Department Care Team ([facility] Contact Info) Description 04/25/2023 Telephone [facility] MEDICINE 230 [place] [address] Earlene Lange LPN Social History Tobacco Use [...] Upcoming Encounters Date Type Department Care Team ([facility] Contact Info) Description 03/20/2025 10:00 AM EDT Telemedicine [facility] MEDICINE 230 [place] [address] Milana Mata DO 230 [place] [address] documented as of this encounter Visit Diagnoses Not on filedocumented in this encounter Additional Health Concerns Assessment Noted Time PHQ-9 Depression Total Score: 12 023 2:23 PM EDT documented as of this encounter Care Teams Trim Operator Relationship Specialty Start Date End Date Campbell Salguero AGNP PCP - General Family Medicine 09/25/22 07/05/23 Sandra [place] [address] PCP - General Family Medicine 07/06/23 06/23/24 Jimi, MD Daniel [address] [place] [address] PCP - General Internal Medicine 06/24/24 07/01/24 Milana Mata DO [address] [place] [address] PCP - General Family Medicine 07/02/24 documented as of this encounter
--- OUTSIDE RECORDS SUMMARY | 2025-02-20 13:51 | XMS_ITS | Clinical Summary ---
Author Organization [employer] Address [address] [facility] [address] [place] [address] Care Team Providers Care Borough Coordinator Name Role Phone AdolfoMilana Primary Care Provider Allergies Active Allergy Reactions Criticality Noted Date Comments [place]-Containing Products Anaphylaxis High 04/20/2023 Fruit Extracts 10/10/2023 Pt states he is allergic to any fruit that has seeds Penicillins Rash High 10/12/2010 [place] Oil 08/21/2024 Medications OXcarbazepine (Trileptal) 300 MG [...] spasms. 60 tablet 3 025 2025 Active Diclofenac Sodium 1 % gel Apply [...] 3 Active Blood Glucose Monitoring Suppl (FreeStyle [place] Lite) w/Device kit Use to test blood sugar 2 times daily 1 kit Active Dulaglutide (Trulicity) 0.75 MG/0.5ML solution auto-injector Inject 0.75 mg under the skin 1 (one) time per week. 2 mL 3 Active traMADol (Ultram) 50 MG tabletIndications :Chronic neck and back pain Take 1 tablet (50 mg) by mouth if needed in the morning and at bedtime for severe pain. 56 tablet Active Polyethyl Glycol-Propyl Glycol (Lubricant Eye Drops) 0.4-0.3 % solutionIndicatio ns:Pruritus of both eyes Administer 1 drop into both eyes if needed in the morning, at noon, and at bedtime (irritation). 5 mL 025 Active acetaminophen (Tylenol 8 Hour) 650 MG ER tablet Take 1 tablet (650 mg) by mouth every 8 (eight) hours if needed for mild pain. Do not crush, chew, or split. 60 tablet 1 025 2024 traMADol (Ultram) 50 MG tabletIndications :Chronic neck and back pain Take 1 tablet (50 mg) by mouth if needed in the morning and at bedtime for severe pain. 56 tablet 025 2024 Discontinued(R eorder (will not [...] there were small polyps. 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 Does not wear glasses. Dental home: upcoming appointment next month at [facility]. Allergies 04/20/2023 07/24/2024 Assessment & Plan (04/20/2023 [...] was prudent to send him to an juvenile court liaison to get a comprehensive and accurate list [...] Encounters Date Type Department Care Team Description 02/20/2025 1:00 PM EDT Office Visit [facility] [address] [place] [address] Pruritus of both eyes (Primary Dx); Palpitations 01/29/2025 Refill [facility] [address] [place] [address] Milana Mata DO Chronic neck and back pain 01/06/2025 Orders Only [facility] External Provider, [facility] 01/05/2025 11:30 AM EDT Office Visit [facility] [address] [place] [address] Milana Mata DO New onset type 2 diabetes mellitus (CMS/HCC) (Primary Dx) 01/05/2025 Travel 01/02/2025 Population Health Risk Score [facility] () [address] [phone] Provider, Population Health Generic 01/01/2025 Telephone [facility] [address] [place] [address] Cristine Savage RN Results 12/31/2024 10:45 AM EDT Office Visit [facility] [address] [place] [address] Milana Mata DO Essential hypertension (Primary Dx); Other hyperlipidemia; Prediabetes; Major depression, recurrent, chronic (CMS/HCC); Seizure disorder (CMS/HCC); Clotting disorder (CMS/HCC); Polyarthralgia; Chronic abdominal pain; Obstructive sleep apnea; Seasonal allergic rhinitis, unspecified trigger; Chronic neck and back pain; Healthcare maintenance 12/31/2024 Telephone [facility] [address] [place] [address] Milana Mata DO Durable Medical Equipment (DME Order: CPAP) 12/31/2024 Travel 12/24/2024 Refill [facility] [address] [place] [phone] Sandra De Jesus FNP Anxiety state 12/10/2024 Refill [facility] [address] [place] [address] Milana aMta DO Cervical neck pain with evidence of disc disease 12/02/2024 Refill [facility] [address] [place] [address] [place] [address] Milana Mata, Hyperlipidemia, unspecified hyperlipidemia type 12/01/2024 Refill [facility] [address] [place] [address] VinbrysonburtMilana, Hyperlipidemia, unspecified hyperlipidemia type from Last 3 Months Immunizations Name Administration [...] Sign Reading Time Taken Comments Blood Pressure 123/85 02/20/2025 12:55 PM EDT Pulse 84 02/20/2025 12:55 PM EDT Temperature 36.8 ??C (98.3 ??F) 02/20/2025 12:55 PM E DT Respiratory Rate 21 02/20/2025 12:55 PM EDT Oxygen Saturation 99% 02/20/2025 12:55 PM EDT Inhaled Oxygen Concentration - - Weight 98.9 kg (218 lb) 02/20/2025 12:55 PM EDT Height 165.1 cm (5' 5 ) 02/20/2025 12:55 PM EDT Body Mass Index 36.28 02/20/2025 12:55 PM EDT Plan of Treatment Upcoming Encounters Date Type Department Care Team (Late st Contact Info) Description 03/20/2025 10:00 AM EDT Telemedicine [facility] [address] [place] [address] AdolfoMilana, [address] [place] [address] Health Maintenance Due Date Last Done Comments CT Colonography 1969 Dental Oral Exam 1969 Dental Prophylaxis 1969 Dental X-Ray: Full Mouth 1969 FIT DNA/Cologuard 1969 Sigmoidoscopy 1969 Diabetes: Foot Exam 1979 FIT 11/15/2024 11/15/2023 FOBT 11/15/2024 11/15/2023 SDOH Screening 04/25/2025 04/25/2024 Diabetes: Hemoglobin A1C 07/08/2025 025, 12/31/2024, 07/28/2024, Additional history exists Diabetes: Urine Protein Screening 07/28/2025 07/28/2024, 09/20/2021 Lipid Panel 07/28/2025 07/28/2024, 06/3 , 08/30/2022, Additional history exists Dental X-Ray: Bitewings [...] Procedure Name Priority Date/Time Associated Diagnosis Comments CT ABDOMEN PELVIS W CONTRAST Routine 01/06/2025 10:04 AM EDT POCT GLYCATED HEMOGLOBIN, TOTAL Routine 01/05/2025 12:26 PM EDT New onset type 2 diabetes mellitus (CMS/HCC) POCT GLUCOSE Routine 01/05/2025 12:25 PM EDT New onset type 2 diabetes mellitus (CMS/HCC) HEMOGLOBIN A1C Routine 12/31/2024 12:22 PM EDT Prediabetes BITEWING - SINGLE RADIOGRAPHIC IMAGE Routine 08/21/2024 [...] Recently Relevant to Health Maintenance Results * CT Abdomen Pelvis w/ Contrast (01/06/2025 10:04 AM EDT) Anatomical Region Laterality Modality Body, Pelvis, Abdomen Computed T omography 01/06/2025 10:0 4 AM EDT Narrative 01/06/2025 11:38 AM EDT ? [facility] ?[address] ?[place] [address] ? CT Scan Report ? Signed ? Patient: Jose Alberto Frey,Reynaldo ?MR#: [id number] ?? [id number] ? : 1970 ?Acct:[id number] ? Age/Sex: 54 / M ?ADM Date: 03/18/25 ? Loc: HO.CT ? Attending Dr: Raphael Powell MD ? Ordering Physician: Raphael Powell MD ?? Date of Service: 01/06/25 ?? Procedure(s): CT abdomen pelvis w IV con ?? Accession Number(s): [id number] ? cc: Raphael Powell MD; Milana Mata DO ? Report Number: ?? [id number]: Total DLP = ??565.00 mGy-cm ?? EXAMINATION: ??CT ABDOMEN PELVIS WITH IV CONTRAST ? HISTORY: ABD PAIN ? COMPARISON: Comparison is made with the prior examination dated ?? 05/17/2023. ? TECHNIQUE: CT scan of the abdomen and pelvis was performed following ?? administration of 85 mL Omnipaque 350 using standard departmental ?? protocol. ?? Coronal and sagittal reformatted images were generated and ?? reviewed. ??The patient received oral contrast material. ? This CT exam was performed with one or more of the following dose ?? reduction techniques: automated exposure control, adjustment of the mA ?? and/or kV according to patient size, use of iterative reconstruction ?? technique. ? DLP: 565 mGy-cm ? FINDINGS: ? LOWER CHEST: The visualized lung bases are clear. There is no pleural ?? effusion. ? CARDIOVASCULATURE: The heart is normal in size. ??There is no ?? pericardial effusion. ? LIVER: ??The liver is normal in size and contour. ??Again seen are tiny ?? subcentimeter hypodense foci in the liver which likely represent cysts ?? but are too small to accurately characterize. These are unchanged from ?? the prior study. ??The hepatic and portal veins are patent. ? GALLBLADDER / BILE DUCTS: ??The gallbladder is unremarkable. There is no ?? intra or extrahepatic biliary ductal dilatation. ? SPLEEN: The spleen is normal in size. No focal splenic lesion is ?? identified. ? PANCREAS: The pancreas is unremarkable in appearance. ? ADRENAL GLANDS: Within normal limits. ? KIDNEYS/RETROPERITONEUM: No renal calculi are identified. There is no ?? hydronephrosis. ??No renal masses are identified. ? LYMPH NODES: ??No abdominal or pelvic lymphadenopathy. ? VASCULATURE: ??The abdominal aorta is normal in caliber. ? MESENTERY/PERITONEUM: No free fluid. No masses. ??There is no free ?? intraperitoneal gas. ? STOMACH: ??The stomach is collapsed, limiting evaluation. ? SMALL BOWEL: ?? The small bowel is normal in caliber. ? COLON: ??There are scattered diverticuli of the descending and sigmoid ?? colon, without evidence of diverticulitis. A sigmoid anastomosis is ?? again noted. ? APPENDIX: ??Normal. ? URINARY BLADDER/PELVIC ORGANS: The urinary bladder is collapsed, ?? limiting evaluation. ??The prostate is normal in size. ? BONES / SOFT TISSUES: ??No suspicious bony or soft tissue abnormalities. ? CT/CT abdomen pelvis w IV con ?? IMPRESSION: ?? No acute abnormality is identified. Incidental findings as discussed ?? above. ? Electronically signed by: ??Anil Sanchez MD ??01/06/2025 11:34 AM EDT ?? RP ? Dictated By: ?Anil Sanchez MD ? Signed By: ?<Electronically signed by Anil Sanchez MD in OV> ?01/06/25 1134 ? DD/ 1004 ? TD/TT: 01/06/25 1035 ? : ? Procedure Note Sheldon Sellers - 01/06/[address] [address] [address] Scan Report Signed Patient: Patrick Osuna#: [id number] : 1970Acct:[id number] Age/Sex: 54 / MADM Date: 01/06/25 Loc: HO.CT Attending Dr: Raphael Powell MD Ordering Physician: Raphael Powell MD Date of Service: 01/06/25 Procedure(s): CT abdomen pelvis w IV con Accession Number(s): [id number] cc: Raphael Powell MD; Milana Mata DO Report Number: [id number]: Total DLP = 565.00 mGy-cm EXAMINATION: CT ABDOMEN PELVIS WITH IV CONTRAST HISTORY: ABD PAIN COMPARISON: Comparison is made with the prior examination dated 05/17/2023. TECHNIQUE: CT scan of the abdomen and pelvis was performed following administration of 85 mL Omnipaque 350 using standard departmental protocol. Coronal and sagittal reformatted images were generated and reviewed. The patient received oral contrast material. This CT exam was performed with one or more of the following dose reduction techniques: automated exposure control, adjustment of the mA and/or kV according to patient size, use of iterative reconstruction technique. DLP: 565 mGy-cm FINDINGS: LOWER CHEST: The visualized lung bases are clear. There is no pleural effusion. CARDIOVASCULATURE: The heart is normal in size. There is no pericardial effusion. LIVER: The liver is normal in size and contour. Again seen are tiny subcentimeter hypodense foci in the liver which likely represent cysts but are too small to accurately characterize. These are unchanged from the prior study. The hepatic and portal veins are patent. GALLBLADDER / BILE DUCTS: The gallbladder is unremarkable. There is no intra or extrahepatic biliary ductal dilatation. SPLEEN: The spleen is normal in size. No focal splenic lesion is identified. PANCREAS: The pancreas is unremarkable in appearance. ADRENAL GLANDS: Within normal limits. KIDNEYS/RETROPERITONEUM: No renal calculi are identified. There is no hydronephrosis. No renal masses are identified. LYMPH NODES: No abdominal or pelvic lymphadenopathy. VASCULATURE: The abdominal aorta is normal in caliber. MESENTERY/PERITONEUM: No free fluid. No masses. There is no free intraperitoneal gas. STOMACH: The stomach is collapsed, limiting evaluation. SMALL BOWEL: The small bowel is normal in caliber. COLON: There are scattered diverticuli of the descending and sigmoid colon, without evidence of diverticulitis. A sigmoid anastomosis is again noted. APPENDIX: Normal. URINARY BLADDER/PELVIC ORGANS: The urinary bladder is collapsed, limiting evaluation. The prostate is normal in size. BONES / SOFT TISSUES: No suspicious bony or soft tissue abnormalities. CT/CT abdomen pelvis w IV con IMPRESSION: No acute abnormality is identified. Incidental findings as discussed above. Electronically signed by: Anil Sanchez MD 01/06/2025 11:34 AM EDT Dictated By: Anil Sanchez MD Signed By: <Electronically signed by Anil Sanchez MD in OV> 01/06/25 1134 DD/ 1004 TD/TT: 01/06/25 1035 : [facility] External Provider IMG CT PROCEDURES Final Result * (ABNORMAL) POCT HGB A1C (01/05/2025 12:26 [...] Media Lot # [id number] Lot# Expiration Date ,785,191 Blood Capillary blood specimen / Unknown 01/05/2025 12:25 PM EDT Milana Maat DO POINT OF CARE TEST ENTER/MITZI T ORDERABLES Final Result * (ABNORMAL) Hemoglobin A1c (12/31/2024 12:22 PM EDT) Hemoglobin A1c 6.5(H) <6.0 % [facility] Comment:Hemoglobin A1C Refer ence Range Adults: 4.8 - 6.0 % Non diabetic: < 6.0 % Goal: < 7.0 %Additional Action Suggested: > 8.0 %Note: Hemoglobin A1c results are invalid for patients with abnormal amounts of HbF. Blood transfusions may impact the HbA1c concentration in the patient sample. Estimated Average Glucose 140 mg/dL [facility] Comment:eAG = Estimated ave rage glucose which is %A1C expressed asaverage glucose, using the formula of the S1Q-NdcwcjcGflwkhg Glucose study (ADAG), Diabetes Care, Vol.31,#8,2007 Blood Venous blood specimen / Unknown 12/31/2024 12:22 PM EDT 12/31/2024 1:49 PM EDT Milana Adolfo DO LAB BLOOD ORDERABLES Final R esult Performing Organization Address [facility]/ZIP Co de Phone Number [facility] [address] [place] [phone] * Hepatitis C Antibody with Reflex to HCV, RNA, Quantitative, Real-Time PCR (07/28/2024 10:21 AM EDT) Hepatitis C Antibody Nonreactive Nonreactive [facility] Comment:Antibodies to HCV no t detected; does not exclude early acuteHCV infection. Blood Venous blood specimen / Unknown 07/28/2024 10:21 AM EDT 07/28/2024 11:15 AM EDT us Milana Adolfo LAB BLOOD ORDERABLES Final R esult Performing Organization Address City/[facility]/ZIP Co de Phone Number [facility] [address] [place] [phone] * HIV-1/2 Antigen and Antibodies, Fourth Generation, with Reflexes (07/28/2024 10:21 AM EDT) HIV AB/AG Nonreactive Nonreactive [facility] Comment:HIV-1 p24 Ag and/or HIV-1/HIV-2 Ab not detected.A test result that is nonreactive does not exclude thepossibility of exposure to or infection with HIV-1 and/orHIV-2. Nonreactive results in this assay for individualswith prior exposure to HIV-1 and/or HIV-2 may be due toantigen and antibody levels that are below the limit ofdetection of this assay.The [employer] HIV Ag/Ab Combo assay result andsupplemental assay results should be interpreted inconjunction with the patient's clinical presentation,history and other laboratory results. If the results areinconsistent with clinical evidence, additional testing issuggested to confirm the result. Blood Venous blood specimen / Unknown 07/28/2024 10:21 AM EDT 07/28/2024 11:15 AM EDT us Milana Mata DO LAB BLOOD ORDERABLES Final R esult [facility] [address] [place] [phone] * (ABNORMAL) Lipid Panel, Standard (07/28/2024 10:21 AM EDT) Triglycerides 116 <150 mg/dL [facility] Comment:Desirable Triglyceri de: less than 150 mg/dLBorderline High Triglyceride 150-199 mg/dLHigh Triglyceride: 200-499 mg/dLVery High Triglyceride: greater than or equal to 5OO mg/dL Cholesterol 127 <200 mg/dL [facility] Comment:Desirable Cholestero l: less than 200 mg/dLBorderline High Cholesterol: 200-239 mg/dLHigh Cholesterol: greater than 239 mg/dL LDL Cholesterol Calculated 67 <100 mg/dL [facility] Comment:Desirable LDL: less than 100 mg/dLNear Optimal/Above Optimal LDL: 110- 129 mg/dLBorderline High LDL: 130-159 mg/dLHigh LDL: 160-189 mg/dLVery High LDL: greater than or equal to 190 mg/dL HDL Cholesterol 37(L) >40 mg/dL [facility] Comment:Desirable HDL: great er than 40 mg/dL Note: This HDL assay may give artificially low results in patients with liver disease. Blood Venous blood specimen / Unknown 07/28/2024 10:21 AM EDT 07/28/2024 10:55 AM EDT Milana Adolfo DO LAB BLOOD ORDERABLES Final R esult Performing Organization Address [facility] Co de Phone Number [facility] [address] [place] [phone] * Albumin, Random Urine W/Creatinine (07/28/2024 10:13 AM EDT) Creatinine, Urine 102.76 mg/dL [facility] Microalbumin Urine <5.0 mg/L [facility] Microalbum Creatinine Ratio Ur TNP <30 ug/mg cr [facility] Comment:Unable to calculate albumin/creatinine ratio due to lowmicroalbumin or creatinine result. Urine (Urine, Random) 07/28/2024 10:13 AM EDT 07/28/2024 10:55 AM EDT Milana Adolfo DO LAB URINE ORDERABLES Final R esult Performing Organization Address [facility] Co de Phone Number [facility] [address] [place] [phone] * (ABNORMAL) Fecal Globin by Immunochemistry (11/15/2023 9:03 AM EST) Fecal Globin By Immunochemistry SEE NOTE(A) [facility] Comment:FECAL GLOBIN BY IMMU NOCHEMISTRY Micro Number: [id number] Test Status: Final Specimen Source: Not given Specimen Quality: Adequate Fecal Globin: DetectedTHIS TEST WAS PERFORMED AT:[employer] [address] [phone] VILLALPANDO MD Stool Rectal contents / Unknown 11/15/2023 9:03 AM EST 11/15/2023 12:27 PM EST Fátima MONGEP LAB BODY FLUIDS AND STOOLS ORD ERABLES Final Result Performing Organization Address [facility] Co de Phone Number [facility] [address] [place] [phone] * Hm Colonoscopy (04/19/2023 2:32 PM EDT) Colonoscopy Normal Normal Comment:Repeat in 5 years us Historical Provider MD HEALTH MAINTENANCE Final Result from Last 3 Months or Most Recently Relevant to Health Maintenance Insurance [facility] C3 DENTAL-[facility] MEDICAID STAND ADULT Care Teams Borough Coordinator Relationship Specialty Start Date End Date Milana Mata DO [address] [place] [address] PCP - General Family Medicine 07/02/24
--- OUTSIDE RECORDS SUMMARY | 2025-02-20 13:51 | XMS_ITS | Encounter Summary ---
Author Organization [employer] Address [address] [place] [address] Care Team Providers Care Highway Maintenance Crew Worker Name Role Phone AdolfoMilana Primary Care Provider [phone] Reason for Visit * Reason Comments Allergies Encounter Details Date Type Department Care Team (Late st Contact Info) Description 02/20/2025 1:00 PM EDT Office Visit [facility] [address] [place], [place] [phone] Pruritus of both eyes (Primary Dx); Palpitations Social History Tobacco Use Types Packs/Day Years [...] Mass Index 36.28 02/20/2025 12:55 PM EDT documented in this encounter Plan of Treatment Upcoming Encounters Date Type Department Care Team (Late st Contact Info) Description 03/20/2025 10:00 AM EDT Telemedicine [facility] [address] [place] [address] Milana Mata DO [address] [place] [address] Scheduled Orders Name Type Priority Associated Diagnoses Orde r Schedule TSH W/Reflex to FT4 Lab Routine Palpitations Expected: 02/20/2025 (Approximate), Expires: 02/20/2026 CBC auto differential Lab Routine Palpitations Expected: 02/20/2025 (Approximate), Expires: 02/20/2026 Basic Metabolic Panel Lab Routine Palpitations Expected: 02/20/2025 (Approximate), Expires: 02/20/2026 documented as of this encounter Visit Diagnoses Diagnosis Pruritus of both eyes- Primary Palpitations documented in this encounter Additional Health Concerns Assessment Noted Time PHQ-9 Depression Total Score: 0 01/01/20 25 10:51 AM EDT documented as of this encounter Care Teams Highway Maintenance Crew Worker Relationship Specialty Start Date End Date Milana Mata DO [address] [place] [address] PCP - General Family Medicine 07/02/24 documented as of this encounter
--- OUTSIDE RECORDS SUMMARY | 2025-02-20 13:51 | XMS_ITS ---
Author Organization [facility] Address [address] [place] [address] Care Team Providers Care Wrapper Stemmer Hand Name Role Phone Milana Mata M.D. Primary Care Provider Fabiola vailable Raphael Powell Jr Unavailable [phone] REASON FOR VISIT Results Encounters Encounter Location Date Provider Diagnosis [facility] [address] [place] [address] 01/06/2025 Raphael Powell Jr Plan Of Treatment Next Appt Details Provider Name:Raphael yi Jr, 05/13/2025 10:40:00 AM, [address], [address], [place], [address], Progress Notes * ORAL SOARESDOB:1970 (54 yo M)Acc No.[id number]:01/06/2025 Patient:?ORAL SOARES :1970???Age:54 Y???Sex:Male Address:[address] [place] [address] [address], [place], [address] * true * Date:? Generated for Printi jose angel/Filippo/eTransmitting on:?02/20/2025 12:27 PM EDT
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
--- OUTSIDE RECORDS SUMMARY | 2025-02-20 13:51 | XMS_ITS | Encounter Summary ---
Author Organization [employer] Address [address] [facility] [address] [place] [address] Care Team Providers Care Tile Power Shear Operator Name Role Phone Campbell Salguero Primary Care Provider Unavail Sandra Mercado Primary Care Provider + NameDaniel MD Primary Care Provider [phone] - Milana Mata DO Primary Care Provider [phone] Reason for Visit * Reason Onset Date Comments Nurse Triage 05/28/2023 Encounter Details Date Type Department Care Team (Late st Contact Info) Description 05/28/2023 Telephone [facility] [address] [place] [address] Campbell Salguero AGNP Nurse Triage Social History [...] 9:23 AM EDT Call to Pt with S[employer]y Burrer Marker [place]le ID [id number] Pt is given message from EVIN Salguero, [...] You become worse * Telephone Encounter - GLNEYS Landry - 05/30/2023 8:52 AM EDT Please contact patient and inform them to reduce their tamsulosin use back to the previous 0.4 mg dose. Also inform them that I will be placing a referral to urology. * Telephone Encounter - Yasmine Esparza RN - 05/28/2023 10:33 AM EDT Triage call Pt gives permission for DRYWALL HANGER FRAMER, Lissett, to speak for Pt. PT was [...] accepted this outcome Please contact lissett at [phone] documented in this encounter Plan of Treatment Upcoming Encounters Date Type Department Care Team (Late st Contact Info) Description 03/20/2025 10:00 AM EDT Telemedicine [facility] [address] [place] [address] Milana Mata DO [address] [place] [address] documented as of this encounter Visit Diagnoses Diagnosis Benign prostatic hyperplasia with incomplete bladder emptying- Primary documented in this encounter Additional Health Concerns Assessment Noted Time PHQ-9 Depression Total Score: 12 023 2:23 PM EDT documented as of this encounter Care Teams Tile Power Shear Operator Relationship Specialty Start Date End Date Campbell Salguero AGNP PCP - General Family Medicine 09/25/22 07/05/23 Sandra De Jesus FNP [address] [place] [address] PCP - General Family Medicine 07/06/23 06/23/24 Daniel Krause MD [address] [place] [address] PCP - General Internal Medicine 06/24/24 07/01/24 Milana Mata DO [address] [place] [address] PCP - General Family Medicine 07/02/24 documented as of this encounter
--- OUTSIDE RECORDS SUMMARY | 2025-02-20 13:51 | XMS_ITS | Encounter Summary ---
Author Organization [employer] Address [address] [facility] [address] [place] [address] Care Team Providers Care Swinging Cut Off Saw Operator Name Role Phone Salguero Campbell VERONICA Primary Care Provider Unavail Sandra Mercado Primary Care Provider + Daniel Krause MD Primary Care Provider [phone] Milana Mata DO Primary Care Provider [phone] Reason for Visit * Reason Comments Med Refill Encounter Details Date Type Department Care Team ([facility] st Contact Info) Description 04/05/2023 Refill [facility] [address] [place], [place] [phone] Evie Francisco MD [address] [place] [address] Allergic rhinitis, unspecified seasonality, unspecified trigger Social [...] Info) Description 03/20/2025 10:00 AM EDT Telemedicine [facility] [address] [facility] [place] [address] Milana Mata DO [address] [place] [address] documented as of this encounter Visit Diagnoses Diagnosis Allergic rhinitis, unspecified seasonality, unspecified trigger documented in this encounter Additional Health Concerns Assessment Noted Time PHQ-9 Depression Total Score: 12 023 2:23 PM EDT documented as of this encounter Care Teams Swinging Cut Off Saw Operator Relationship Specialty Start Date End Date Campbell Salguero AGNP PCP - General Family Medicine 09/25/22 07/05/23 [place] [address] PCP - General Family Medicine 07/06/23 06/23/24 Name, [place] [address] PCP - General Internal Medicine 06/24/24 07/01/24 [place] [address] PCP - General Family Medicine 07/02/24 documented as of this encounter
[2025-02-20 16:09] LABS: MANUAL DIFF FLAG NO
[2025-02-20 16:19] LABS: Basophils Percent Auto 0.4 % (0-2); Eosinophils Absolute Auto 0.3 X10*3/uL (0.0-0.4); Eosinophils Percent Auto 3.5 % (0-4); Hematocrit 38.8 % (42.0-52.0); Hemoglobin 12.2 g/dl (14.0-18.0); Imm Gran Abs Auto 0.02 X10*3/uL (0.00-0.03); Imm Gran Pct Auto 0.3 % (0.0-0.4); Lymphocytes Absolute Auto 2.1 X10*3/uL (1.2-4.9); Lymphocytes Percent Auto 26.8 % (20-40); Mean Corpuscular HGB Conc 31.4 g/dl (31.0-36.0); Mean Corpuscular Hemoglobin 25.7 pg (27.0-33.0); Mean Corpuscular Volume 81.9 fL (80.0-98.0); Mean Platelet Volume 11.7 fL (9.4-12.4); Monocytes Absolute Auto 0.4 X10*3/uL (0.1-1.2); Monocytes Percent Auto 5.4 % (2-11); Neutrophils Percent Auto 63.6 % (45-73); Platelet Count 265 X10*3/uL (160-400); Red Blood Count 4.74 X10*6/uL (4.60-5.80); Red Cell Distribution Width 14.6 % (11.0-16.0); White Blood Count 7.8 X10*3/uL (4.8-10.8)
[2025-02-20 16:39] LABS: Anion Gap 11 (12-20); Blood Urea Nitrogen 14 mg/dL (9-16); Calcium 9.3 mg/dL (8.4-10.2); Carbon Dioxide 30 mmol/L (22-29); Chloride 103 mmol/L (96-108); Estimated Glomerular Filt Rate > 60; Glucose Random 90 mg/dL (60-115); Potassium 3.9 mmol/L (3.3-5.1); Sodium 140 mmol/L (135-145)
== END 2025-02-20 13:36 | disposition home or self-care (01) ==
LOC: HO.HHCL 13:35
PROVIDERS: Visit Provider Nurse Practitioner
DX: R00.2 Palpitations (principal)
CPT/HCPCS: 36415; 80048; 84443; 85025

== ENCOUNTER 2025-02-28 18:09 | Emergency (ER) | payer MEDICAID, SELFPAY ==
--- NOTE | ~2025-02-28 | XR_ITS ---
CLINICAL HISTORY: chest pain 2 view chest x-ray Comparison: CT/REG/SR - CT ANGIO CHEST PE PROTOCOL - 06/03/23 14:51 EDT Findings: No large consolidation. Artifact versus a 8.7 mm nodular density of the right lower lung. Heart size is normal. No acute fracture. IMPRESSION: No consolidation. Questionable nodular density of the right lower lung. Further evaluation by nonemergent CT of the chest can be considered as indicated. This document has been electronically signed by: Berry Castorena MD on 02/28/2025 19:44:27
[2025-02-28 18:14] VITALS: BP 111/71; PULSE 97; RESP 16; TEMP 36.7; O2SAT 98; BMI 35.9
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
--- NOTE | 2025-02-28 18:15 | ECG_ITS ---
Test Reason : abd pain Blood Pressure : */* mmHG Vent. Rate : 96 BPM Atrial Rate : 96 BPM P-R Int : 168 ms QRS Dur : 90 ms QT Int : 362 ms P-R-T Axes : 38 16 20 degrees QTcB Int : 457 ms Normal sinus rhythm Normal ECG When compared with ECG of 10-Apr-2024 20:07, No significant change was found Referred By: Cristy Alamo Electronically Signed By: SEBASTIEN HARDIN
[2025-02-28 18:52] LABS: MANUAL DIFF FLAG NO
[2025-02-28 18:53] LABS: Basophils Percent Auto 0.3 % (0-2); Eosinophils Absolute Auto 0.1 X10*3/uL (0.0-0.4); Eosinophils Percent Auto 1.3 % (0-4); Hematocrit 36.9 % (42.0-52.0); Hemoglobin 12.1 g/dl (14.0-18.0); Imm Gran Abs Auto 0.02 X10*3/uL (0.00-0.03); Imm Gran Pct Auto 0.2 % (0.0-0.4); Lymphocytes Absolute Auto 2.3 X10*3/uL (1.2-4.9); Lymphocytes Percent Auto 23.5 % (20-40); Mean Corpuscular HGB Conc 32.8 g/dl (31.0-36.0); Mean Corpuscular Hemoglobin 26.1 pg (27.0-33.0); Mean Corpuscular Volume 79.7 fL (80.0-98.0); Mean Platelet Volume 11.1 fL (9.4-12.4); Monocytes Absolute Auto 0.6 X10*3/uL (0.1-1.2); Monocytes Percent Auto 6.3 % (2-11); Neutrophils Absolute Auto 6.8 x10*3/uL (2.0-8.3); Neutrophils Percent Auto 68.4 % (45-73); Platelet Count 228 X10*3/uL (160-400); Red Blood Count 4.63 X10*6/uL (4.60-5.80); Red Cell Distribution Width 14.6 % (11.0-16.0); White Blood Count 9.9 X10*3/uL (4.8-10.8)
[2025-02-28 18:58] LABS: INTERNATIONAL NORM RATIO 1.2 (0.9-1.1); Prothrombin Time 13.8 SEC (10.9-12.4)
[2025-02-28 19:15] VITALS: BP 120/74; PULSE 87; RESP 20; TEMP 36.6; O2SAT 97
[2025-02-28 19:15] LABS: Alanine Aminotransferase 20 U/L (0-40); Albumin Level 4.3 g/dL (3.5-5.0); Alkaline Phosphatase 93 U/L (39-117); Anion Gap 15 (12-20); Aspartate Amino Transferase 21 U/L (5-37); Bilirubin Total 0.3 mg/dL (0.0-1.0); Blood Urea Nitrogen 12 mg/dL (9-16); Calcium 9.2 mg/dL (8.4-10.2); Carbon Dioxide 28 mmol/L (22-29); Chloride 104 mmol/L (96-108); Creatinine Clr Calc Pharmacy 113.7; Estimated Glomerular Filt Rate > 60; Glucose Random 97 mg/dL (60-115); Magnesium 1.8 mg/dL (1.6-2.6); Potassium 3.6 mmol/L (3.3-5.1); Sodium 143 mmol/L (135-145); Total Protein 7.5 g/dL (6.5-8.0)
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
[2025-02-28 19:17] LABS: B Type Natriuretic Peptide < 10 pg/mL (<100)
[2025-02-28 19:24] LABS: Troponin-I High Sensitivity < 2.7 ng/L (<3.5-35.0)
[2025-02-28 19:33] LABS: Influenza A PCR NEGATIVE (Negative); Influenza B PCR NEGATIVE (Negative); Resp Syncy Virus RNA Qual PCR NEGATIVE (Negative); SARS COV2 PCR INHOUSE NEGATIVE (Negative)
[2025-02-28 20:21] VITALS: BP 112/63; PULSE 85; RESP 16; TEMP 36.9; O2SAT 99
[2025-02-28 22:42] VITALS: BP 112/63; PULSE 85; RESP 16; TEMP 36.9; O2SAT 99
== END 2025-02-28 22:11 | disposition home or self-care (01) ==
PROVIDERS: Physician Assistant Medical; Emergency Provider Internal Medicine; PCP Family Medicine
DX: R07.89 Other chest pain (principal); R06.02 Shortness of breath; R10.2 Pelvic and perineal pain; Z03.818 Encounter for observation for suspected exposure to other biological agents ruled out; Z79.899 Other long term (current) drug therapy
CPT/HCPCS: 0241U; 71046; 80053; 83735; 83880; 84484; 85025; 85610; 93005; 99283; 99285

== ENCOUNTER → 2025-02-28 18:15 | Outpatient (BNV) | payer MEDICAID, SELFPAY | PROVIDERS: Emergency Provider Internal Medicine; PCP Family Medicine; Visit Provider Internal Medicine | DX: R10.9 Unspecified abdominal pain (principal) | CPT/HCPCS: 93010 ==

== ENCOUNTER → 2025-02-28 18:15 | Outpatient (BNV) | payer MEDICAID, SELFPAY | PROVIDERS: PCP Family Medicine; Visit Provider Nuclear Medicine | DX: R07.9 Chest pain, unspecified (principal) | CPT/HCPCS: 71046 ==

== ENCOUNTER 2025-03-05 13:41 | Outpatient (AMB) | payer MEDICAID, SELFPAY ==
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
[2025-03-05 13:54] VITALS: BP 120/78; PULSE 80; O2SAT 97; BMI 35.1
--- OUTSIDE RECORDS SUMMARY | 2025-03-05 14:16 | XMS_ITS | Encounter Summary ---
Author Organization [employer] Address [address] [place] [address] Care Team Providers Care Tent Finisher Name Role Phone Sandra De Jesus Primary Care Provider + Jimi, Daniel العراقي Primary Care Provider [phone] Milana Mata DO Primary Care Provider [phone] Encounter Details Date Type Department Care Team (Late st Contact Info) Description 09/03/[address] [facility] [address] [place], [place] [phone] Iram Resendiz Social History Tobacco Use Types [...] Info) Description 03/20/2025 10:[address] [facility] [address] [place] [address] Milana Mata DO [address] [place] [address] documented as of this encounter Visit Diagnoses Not on filedocumented in this encounter Additional Health Concerns Assessment Noted Time PHQ-9 Depression Total Score: 12 023 2:23 PM EDT documented as of this encounter Care Teams Tent Finisher Relationship Specialty Start Date End Date Sandra De Jesus FNP [address] [place] [address] PCP - General Family Medicine 07/06/23 06/23/24 NameDaniel MD [address] [place] [id number] PCP - General Internal Medicine 06/24/24 07/01/24 Milana Mata DO [address] [place] [address] [id number] PCP - General Family Medicine 07/02/24 documented as of this encounter
--- OUTSIDE RECORDS SUMMARY | 2025-03-05 14:16 | XMS_ITS | Encounter Summary ---
Author Organization [employer] Address [address] [place] [address] Care Team Providers Care [employer] Social Worker Name Role Phone Sandra De Jesus Primary Care Provider [phone] Name, Daniel العراقي Primary Care Provider [phone] Milana Mata DO Primary Care Provider + [phone] Encounter Details Date Type Department Care Team (Late st Contact Info) Description 02/05/2024 Telephone [facility] [address] [place] [address] Sandra De Jesus FNP [address] [place] [address] Social History Tobacco Use Types Packs/Day Years [...] Info) Description 03/20/2025 10:00 AM EDT Telemedicine [facility] [address] [place] [address] Milana Mata DO [address] [place] [address] documented as of this encounter Visit Diagnoses Not on filedocumented in this encounter Additional Health Concerns Assessment Noted Time PHQ-9 Depression Total Score: 8 11/15/19 24 9:20 AM EST documented as of this encounter Care Teams [employer] Social Worker Relationship Specialty Start Date End Date Sandra De Jesus FNP [address] [place] [address] PCP - General Family Medicine 07/06/23 06/23/24 Daniel Krause MD [address] [place] [address] [id number] PCP - General Internal Medicine 06/24/24 07/01/24 Milana Mata DO [address] [place] [address] [id number] PCP - General Family Medicine 07/02/24 documented as of this encounter
--- OUTSIDE RECORDS SUMMARY | 2025-03-05 14:16 | XMS_ITS | Encounter Summary ---
Author Organization [employer] Address [address] [facility] 7t [place] [address] Care Team Providers Care Plywood Matcher Name Role Phone Sandra De Jesus Primary Care Provider + Daniel Krause MD Primary Care Provider [phone] Milana Mata DO Primary Care Provider [phone] Reason for Visit * Reason Comments Med Refill Encounter Details Date Type Department Care Team (Late st Contact Info) Description 08/01/2023 Refill [facility] [address] [place] [address] Ryan Nation MD [address] [place] [address] Social History Tobacco Use Types Packs/Day Years Used Date Smoking Tobacco: Never Passive Smoke Exposure: Never Smokeless Tobacco: Never Alcohol Use Standard Drinks/Week Comments Never 0 (1 standard drink = 0.6 oz pur e alcohol) Depression Answer Date Recorded Patient Health Questionnaire-9 Score 12 03/02/2023 Housing Stability Answer Date Recorded What is your housing situation today? I have genevadarcie alston 07/30/[address] you [...] 03/20/2025 10:00 AM EDT Telemedicine [facility] [address] [place], [place] [phone] Milana Mata DO [address] [place] [address] documented as of this encounter Visit Diagnoses Not on filedocumented in this encounter Additional Health Concerns Assessment Noted Time PHQ-9 Depression Total Score: 12 023 2:23 PM EDT documented as of this encounter Care Teams Plywood Matcher Relationship Specialty Start Date End Date Sandra De Jesus FNP [address] [place], [place] [phone] PCP - General Family Medicine 07/06/23 06/23/24 Daniel Krause MD [address] [place], [place] [phone] PCP - General Internal Medicine 06/24/24 07/01/24 Milana Mata DO [address] [place] [address] PCP - General Family Medicine 07/02/24 documented as of this encounter
--- OUTSIDE RECORDS SUMMARY | 2025-03-05 14:16 | XMS_ITS | Encounter Summary ---
Author Organization [employer] Address [address] [place] [address] Care Team Providers Care Piecer Name Role Phone GenetMilana dallas Primary Care Provider + [phone] Reason for Visit * Reason Comments Med Refill Encounter Details Date Type Department Care Team ([facility] st Contact Info) Description 09/04/2024 Refill [facility] [address] [place] [address] Sandra De Jesus FNP [address] [place] [address] Allergic rhinitis due to other allergic trigger, [...] Info) Description 03/20/2025 10:00 AM EDT Telemedicine [facility] [address] [place] [address] Milana Mata DO [address] [place] [address] documented as of this encounter Visit Diagnoses Diagnosis Allergic rhinitis due to other allergic trigger, unspecified seasonality documented in this encounter Additional Health Concerns Assessment Noted Time PHQ-9 Depression Total Score: 8 11/15/19 24 9:20 AM EST documented as of this encounter Care Teams Piecer Relationship Specialty Start Date End Date Milana Mata DO [address] [place] [address] PCP - General Family Medicine 07/02/24 documented as of this encounter
--- OUTSIDE RECORDS SUMMARY | 2025-03-05 14:16 | XMS_ITS ---
Author Organization [facility] Address [address] [place] [address] Care Team Providers Care Leather Production Machine Operator Name Role Phone Milana Mata M.D. Primary Care Provider Fabiola vailaRaphael Esparza Jr Unavailable REASON FOR VISIT Pt no show Encounters Encounter Location Date Provider Diagnosis [facility] [address] [place] [address] 07/21/2024 Raphael Powell Jr Plan Of Treatment Next Appt Details Provider Name:Raphael yi Jr, 05/13/2025 10:40:00 AM, [address], [address], [place], [address], Progress Notes * ORAL SOARESDOB:1970 (54 yo M)Acc No.[id number]:07/21/2024 Patient:?ORAL SOARES :1970???Age:54 Y???Sex:Male Address:[address] [place] [address] [address], [place], [address] * true * Date:? Generated for Printi jose angel/Filippo/eTransmitting on:?03/05/2025 02:16 PM EDT
--- OUTSIDE RECORDS SUMMARY | 2025-03-05 14:16 | XMS_ITS | Encounter Summary ---
Author Organization [employer] Address [address] [place] [address] Care Team Providers Care Chemical Research Technician Name Role Phone Sandra De Jesus Primary Care Provider +- Name, Daniel العراقي Primary Care Provider [phone] Milana Mata DO Primary Care Provider [phone] Encounter Details Date Type Department Care Team (Late st Contact Info) Description 05/23/2024 Orders Only [facility] [address] [place] [address] aSndra De Jesus FNP [address] [place] [address] Cervical neck pain with evidence of disc [...] Info) Description 03/20/2025 10:00 AM EDT Telemedicine [facility] [address] [place] [address] Milana Mata DO [address] [place] [address] documented as of this encounter Visit Diagnoses Diagnosis Cervical neck pain with evidence of disc disease- Primary Other and unspecified disc disorder of cervical region documented in this encounter Additional Health Concerns Assessment Noted Time PHQ-9 Depression Total Score: 8 11/15/19 9:20 AM EST documented as of this encounter Care Teams Chemical Research Technician Relationship Specialty Start Date End Date Sandra De Jesus FNP [address] [place] [phone] PCP - General Family Medicine 07/06/23 06/23/24 Daniel Krause MD [address] [place] [id number] PCP - General Internal Medicine 06/24/24 07/01/24 Milana Mata DO [address] [place] [id number] PCP - General Family Medicine 07/02/24 documented as of this encounter
--- OUTSIDE RECORDS SUMMARY | 2025-03-05 14:16 | XMS_ITS | Encounter Summary ---
Author Organization [employer] Address [address] [facility] [address] [place] [address] Care Team Providers Care Rn Rehabilitation Name Role Phone VinMilana dwyer Primary Care Provider + [phone] Encounter Details Date Type Department Care Team ([facility] st Contact Info) Description 02/28/2025 Orders Only GENERIC EXTERNAL DATA DEPARTMENT Provider, Generic External Data Social History Tobacco Use Types Packs/Day Years [...] Info) Description 03/20/2025 10:00 AM EDT Telemedicine [facility] [address] [place], [place] [phone] Milana Mata DO [address] [place] [address] documented as of this encounter Procedures Procedure Name Priority Date/Time Associated Diagnosis Comments XR CHEST 2 VIEWS Routine 02/28/2025 7:44 PM EDT HIGH SENSITIVITY TROPONIN I Routine 02/28/2025 6:47 PM EDT SARS COV2/INFLUENZA A/B AND RSV RNA QL NAAT Routine 02/28/2025 6:47 PM EDT CBC WITH AUTO DIFFERENTIAL Routine 02/28/2025 6:47 PM EDT PROTHROMBIN TIME-INR Routine 02/28/2025 6:47 PM EDT B TYPE NATRIURETIC PEPTIDE (BNP) Routine 02/28/2025 6:47 PM EDT MAGNESIUM Routine 02/28/2025 6:47 PM EDT COMPREHENSIVE METABOLIC PANEL Routine 02/28/2025 6:47 PM EDT documented in this encounter Results * XR Chest 2 Views (02/28/2025 7:44 PM EDT) Anatomical Region Laterality Modality Chest Radiographic Marybel ging 02/28/2025 7:44 PM EDT Narrative 02/28/2025 7:45 PM EDT ? [facility] ?[address] ?[place] [address] ?XRay Report ? Signed ? Patient: Jose Alberto Cedilloron,Reynaldo ?MR#: [id number] ?? [id number] ? : 1970 ?Acct:[id number] ? Age/Sex: 55 / M ?ADM Date: 02/28/25 ? Loc: HO.ED ? Attending Dr: ? Ordering Physician: Cristy Alamo ?? Date of Service: 02/28/25 ?? Procedure(s): XR chest 2V ?? Accession Number(s): [id number] ? cc: Cristy Alamo; Milana Mata DO ? CLINICAL HISTORY: chest pain ? 2 view chest x-ray ? Comparison: CT/REG/SR - CT ANGIO CHEST PE PROTOCOL - 06/03/23 14:51 EDT ? Findings: ?? No large consolidation. Artifact versus a 8.7 mm nodular density of the ?? right lower lung. ?? Heart size is normal. ?? No acute fracture. ? IMPRESSION: ?? No consolidation. Questionable nodular density of the right lower lung. ?? Further evaluation by nonemergent CT of the chest can be considered as ?? indicated. ? This document has been electronically signed by: Berry Castorena MD on ?? 02/28/2025 19:44:27 ? Dictated By: ?Berry Castorena MD ? Signed By: ?<Electronically signed by Berry Castorena MD in OV> ? 02/28/251944 ? DD/ 43 ? TD/TT: 02/28/251943 ? 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 Procedure Note Sheldon Sellers - 02/28/[address] [address] XRay Report Signed Patient: Patrick Osuna#: [id number] : 1970Acct:[id number] Age/Sex: 55 / MADM Date: 02/28/25 Loc: HO.ED Attending Dr: Ordering Physician: Cristy Alamo Date of Service: 02/28/25 Procedure(s): XR chest 2V Accession Number(s): [id number] cc: Cristy Alamo; Milana Mata DO CLINICAL HISTORY: chest pain 2 view chest x-ray Comparison: CT/REG/SR - CT ANGIO CHEST PE PROTOCOL - 06/03/23 14:51 EDT Findings: No large consolidation. Artifact versus a 8.7 mm nodular density of the right lower lung. Heart size is normal. No acute fracture. IMPRESSION: No consolidation. Questionable nodular density of the right lower lung. Further evaluation by nonemergent CT of the chest can be considered as indicated. This document has been electronically signed by: Berry Castorena MD on 02/28/2025 19:44:27 Dictated By: Berry Castorena MD Signed By: <Electronically signed by Berry Castorena MD in OV> 02/28/251944 DD/ 43 TD/TT: 02/28/251943 Real Estate Investor: [facility] External Provider IMG XR PROCEDURES Edited Result - Final * SARS-CoV-2 RNA, Influenza A/B, and RSV RNA, Ql NAAT (02/28/2025 6:47 PM EDT) Influenza A PCR NEGATIVE Negative [facility] Influenza B PCR NEGATIVE Negative [facility] Resp Syncy Virus RNA Qual PCR NEGATIVE Negative [facility] SARS COV2 PCR NEGATIVE Negative [facility] Comment:All test results mus t be correlated with clinical findings.Negative results do not preclude SARS-CoV2, influenza Avirus, influenza B virus and/or RSV infectionand should not be used as the sole basis for treatment orother patient management decisions. Negative results must becombined with clinical observations, patient history, andepidemiological information.This test has not been evaluated for monitoring treatment ofinfection.This test has been authorized by the FDA under an EmergencyUse Authorization (EUA) for use by authorized laboratories.Testing performed on the [employer] GeneXpert utilizingreal-time RT-PCR.All SARS CoV2 and positive influenza A/B results arereported to [facility]. 02/28/2025 6:47 PM EDT 02/28/2025 6:50 PM EDT Generic External Data Provider LAB MICROBIOLOGY - GENERAL ORDERABLES Final Result Performing Organization Address [facility] Co de Phone Number [facility] [address] [place] [phone] * High Sensitivity Troponin I (02/28/2025 6:47 PM EDT) Pathologist [facility] TROPONIN I HIGH SENSITIVITY <2.7 <3.5 - 35.0 ng/L [facility] Comment:The Maier high sens itivity Troponin-I results should beused in conjunction with other diagnostic information suchas ECG, clinical observations and information, and patientsymptoms to aid in the diagnosis of VA. 02/28/2025 6:47 PM EDT 02/28/2025 6:50 PM EDT Generic External Data Provider LAB BLOOD ORDERAB LES Final Result Performing Organization Address [facility] Co de Phone Number [facility] [address] [place] [phone] * B Type Natriuretic Peptide (BNP) (02/28/2025 6:47 PM EDT) [facility] B Type Natriuretic Peptide <10 <100 pg/mL [facility] 02/28/2025 6:47 PM EDT 02/28/2025 6:50 PM EDT Generic External Data Provider LAB BLOOD ORDERAB LES Final Result Performing Organization Address [facility] Co de Phone Number [facility] [address] [place] [phone] * Magnesium (02/28/2025 6:47 PM EDT) Pathologist [facility] Magnesium 1.8 1.6 - 2.6 mg/dL [facility] 02/28/2025 6:47 PM EDT 02/28/2025 6:50 PM EDT us Generic External Data Provider LAB BLOOD ORDERAB LES Final Result [facility] [address] [place] [phone] * Comprehensive Metabolic Panel (02/28/2025 6:47 PM EDT) Sodium 143 135 - 145 mmol/L [facility] Potassium 3.6 3.3 - 5.1 mmol/L [facility] Chloride 104 96 - 108 mmol/L [facility] Carbon Dioxide 28 22 - 29 mmol/L [facility] Anion Gap 15 12 - 20 [facility] Urea Nitrogen (BUN) 12 9 - 16 mg/dL [facility] Creatinine, Serum 0.78 0.5 - 1.4 mg/dL [facility] Creatinine Clr Calc Pharmacy 113.7 [facility] Comment:eGFR (calculated fro m the MDRD study equation) and eCrCl(calculated from the Cockcroft-Gault equation) are based ondifferent parameters and may not yield comparable results.If eCrCl result is absurd, please check patient'sheight/weight. Estimated Glomerular Filt Rate >60 [facility] Comment:Chronic Kidney Disea se: Estimated GFR < 60 mL/min/1.30e2Idqdpl Kidney Disease: Estimated GFR < 15 mL/min/1.73m2 Glucose 97 60 - 115 mg/dL [facility] Calcium 9.2 8.4 - 10.2 mg/dL [facility] Bilirubin, Total 0.3 0.0 - 1.0 mg/dL [facility] Aspartate Amino Transferase 21 5 - 37 U/L [facility] Alanine Aminotransferase 20 0 - 40 U/L [facility] Total Protein 7.5 6.5 - 8.0 g/dL [facility] Albumin Level 4.3 3.5 - 5.0 g/dL [facility] Alkaline Phosphatase 93 39 - 117 U/L [facility] 02/28/2025 6:47 PM EDT 02/28/2025 6:50 PM EDT Generic External Data Provider LAB BLOOD ORDERAB LES Final Result Performing Organization Address [facility] Co de Phone Number [facility] [address] [place] [phone] * (ABNORMAL) Prothrombin Time-INR (02/28/2025 6:47 PM EDT) Prothrombin Time 13.8(H) 10.9 - 12.4 SEC [facility] INTERNATIONAL NORM RATIO 1.2(H) 0.9 - 1.1 [facility] Comment:INTERNATIONAL NORMAL IZED RATIO (INR) REFERENCE RANGES Reference RangeFor patients not on anticoagulant therapy: 0.9 - 1.1INR ranges for oral anticoagulanttherapy:For prevention and treatment of venous thrombosis and pulmonary embolism: 2.0 - 3.0For acute myocardial infarction with aspirin therapy: 2.0 - 3.0For acute myocardial infarction without aspirin therapy: 3.0 - 4.0For patients with mechanical prosthetic heart valves: 2.5 - 3.5 02/28/2025 6:47 PM EDT 02/28/2025 6:50 PM EDT us Generic External Data Provider LAB BLOOD ORDERAB LES Final Result Performing Organization Address [facility] Co de Phone Number [facility] [address] [place] [phone] * (ABNORMAL) CBC auto differential (02/28/2025 6:47 PM EDT) White Blood Count 9.9 4.8 - 10.8 X10*3/uL [facility] Red Blood Count 4.63 4.60 - 5.80 X10*6/uL [facility] Hemoglobin 12.1(L) 14.0 - 18.0 g/dl [facility] Hematocrit 36.9(L) 42.0 - 52.0 % [facility] Mean Corpuscular Volume 79.7(L) 80.0 - 98.0 fL [facility] Mean Corpuscular Hemoglobin 26.1(L) 27.0 - 33.0 pg [facility] Mean Corpuscular HGB Conc 32.8 31.0 - 36.0 g/dl [facility] Red Cell Distribution Width 14.6 11.0 - 16.0 % [facility] Platelet Count 228 160 - 400 X10*3/uL [facility] Mean Platelet Volume 11.1 9.4 - 12.4 fL [facility] Neutrophils Percent Auto 68.4 45 - 73 % [facility] Imm Gran Pct Auto 0.2 0.0 - 0.4 % [facility] Lymphocytes Percent Auto 23.5 20 - 40 % [facility] Monocytes Percent Auto 6.3 2 - 11 % [facility] Eosinophils Percent Auto 1.3 0 - 4 % [facility] Basophils Percent Auto 0.3 0 - 2 % [facility] NRBC Pct Auto 0.0 0.0 - 0.2 /100WBC [facility] Neutrophils Absolute Auto 6.8 2.0 - 8.3 x10*3/uL [facility] Imm Gran Abs Auto 0.02 0.00 - 0.03 X10*3/uL [facility] Lymphocytes Absolute Auto 2.3 1.2 - 4.9 X10*3/uL [facility] Monocytes Absolute Auto 0.6 0.1 - 1.2 X10*3/uL [facility] Eosinophils Absolute Auto 0.1 0.0 - 0.4 X10*3/uL [facility] Basophils Absolute Auto 0.0 0.0 - 0.2 X10*3/uL [facility] NRBC Abs Auto 0.000 0.0 - 0.012 X10*3/uL [facility] 02/28/2025 6:47 PM EDT 02/28/2025 6:50 PM EDT us Generic External Data Provider LAB BLOOD ORDERAB LES Final Result Performing Organization Address [facility]/State/ZIP Co de Phone Number [facility] [address] [place] [phone] documented in this encounter Visit Diagnoses Not on filedocumented in this encounter Additional Health Concerns Assessment Noted Time PHQ-9 Depression Total Score: 0 01/01/20 25 10:51 AM EDT documented as of this encounter Care Teams Rn Rehabilitation Relationship Specialty Start Date End Date Milana Mata DO [address] [place] [phone] PCP - General Family Medicine 07/02/24 documented as of this encounter
--- OUTSIDE RECORDS SUMMARY | 2025-03-05 14:16 | XMS_ITS | Clinical Summary ---
Author Organization [id number] Address [address] [facility] 7[address] [place] [address] Care Team Providers Care Railroad Conductor Name Role Phone VinMilana dwyer Primary Care Provider [phone] Allergies Active Allergy Reactions Criticality Noted Date Comments Jackson-Containing Products Anaphylaxis High 04/20/2023 Fruit Extracts 10/10/2023 Pt states he is allergic to any fruit that has seeds Penicillins Rash High 10/12/2010 Udall Oil 08/21/2024 Medications OXcarbazepine (Trileptal) 300 MG [...] rectum in the morning. 12/26/19 24 Active gabapentin (Neurontin) 100 MG capsule Take 1 capsule (100 mg) by mouth every 8 (eight) hours. 90 capsule 11 01/02/20 24 Active omeprazole (PriLOSEC) [address] [...] 90 capsule 3 07/24/20 24 2024 Active apixaban (Eliquis) 5 MG tablet TAKE 1 TABLET BY MOUTH TWICE DAILY IN THE MORNING AND IN THE EVENING 60 tablet 5 09/25/20 24 Active rosuvastatin (Crestor) 40 MG tabletIndications :Hyperlipidemia, unspecified hyperlipidemia type Take 1 tablet (40 mg) by mouth at bedtime. 90 tablet 12/03/19 25 Active losartan-hydroCHL OROthiazide (Hyzaar) 100-25 MG tablet TAKE 1 TABLET BY MOUTH EVERY MORNING 90 tablet 3 12/25/19 25 Active cholecalciferol VITAMIN D (Vitamin D-3) 50 MCG (1999 UT) tabletIndications :Anxiety state TAKE 1 TABLET BY MOUTH EVERY MORNING 90 tablet 3 12/25/19 25 Active sucralfate (Carafate) 1 GM/10ML suspension SWISH AND SWALLOW 10 ML FOUR TIMES DAILY NEEDED FOR HEARTBURN USE AFTER FOOD OR DRINK Active cetirizine (ZyrTEC) 10 MG tabletIndications :Seasonal allergic rhinitis, unspecified trigger TAKE 1 TABLET BY MOUTH ONCE DAILY 90 tablet 1 01/01/20 25 Active baclofen (Lioresal) 10 MG tablet Take 1 tablet (10 mg) by mouth if needed in the morning, at noon, and at bedtime for muscle spasms. 60 tablet 3 01/01/20 25 2025 Active Diclofenac Sodium 1 % gel Apply 2 g topically if needed in the morning, at noon, in the evening, and at bedtime (pain). 150 g 3 01/01/20 25 Active albuterol 108 (90 Base) MCG/ACT inhaler Inhale 2 puffs every 4 (four) hours if needed for shortness of breath or wheezing. 18 g 1 01/01/20 25 Active fluticasone (Flonase) 50 MCG/ACT nasal spray Administer 2 sprays into each nostril Once per day. 48 g 3 01/01/20 25 Active Ketotifen Fumarate (Alaway) 0.035 % solution Administer 1 drop into affected eye(s) if needed in the morning and at bedtime (allergies/it linwood). 10 mL 1 01/01/20 25 Active lidocaine (Lidoderm) 5 % patch Apply 1-2 patches topically if needed each day for mild pain. Remove & discard patch within 12 hours or as directed by MD. 60 patch 3 01/01/20 25 Active FREESTYLE LITE test strip Use to test blood sugar 2 times daily 100 each 11 01/06/20 25 2025 Active Lancets misc Use to test blood sugar 2 times daily 100 each 11 01/06/20 25 Active Alcohol Swabs 70 % pads Use to test blood sugar 2 times daily 100 each 3 01/06/20 25 Active Blood Glucose Monitoring Suppl (FreeStyle Garden Lite) w/Device kit Use to test blood sugar 2 times daily 1 kit 01/06/20 25 Active Dulaglutide (Trulicity) 0.75 MG/0.5ML solution auto-injector Inject 0.75 mg under the skin 1 (one) time per week. 2 mL 3 01/06/20 25 Active Polyethyl Glycol-Propyl Glycol (Lubricant Eye Drops) 0.4-0.3 % solutionIndicatio ns:Pruritus of both eyes Administer 1 drop into both eyes if needed in the morning, at noon, and at bedtime (irritation). 5 mL 02/21/20 25 Active traMADol (Ultram) 50 MG tabletIndications :Chronic neck and back pain TAKE 1 TABLET BY MOUTH TWICE DAILY IN THE MORNING AND AT BEDTIME NEEDED FOR SEVERE PAIN 56 tablet 03/02/20 25 Active traMADol (Ultram) 50 MG tabletIndications :Chronic neck and back pain Take 1 tablet (50 mg) by mouth if needed in the morning and at bedtime for severe pain. 56 tablet 01/30/20 25 2024 Discontinued Active Problems Problem Noted Date Diagnosed Date Palpitations 02/24/2025 Assessment & Plan (02/24/2025 11:41 AM EDT): 55 frederic old man with hypertension, dyslipidemia presents for second visit for Intermittent palpitations for a few months. No chest pain. -EKG today NSR 66 BPM -referral to cardiology for palpitations -ER precautions discussed Acute bilateral low back pain without sciatica [...] there were small polyps. Eye exam: Saw senior marketing associate 8 months ago, [facility]. Does not wear glasses. Dental home: upcoming appointment next month at [facility]. Allergies 04/20/2023 07/24/2024 Assessment & Plan (04/20/2023 [...] was prudent to send him to an college recruiter to get a comprehensive and accurate list [...] Encounters Date Type Department Care Team Description 03/05/2025 Refill [facility] [address] [place] [address] Sandra De Jesus FNP 02/28/2025 Orders Only GENERIC EXTERNAL DATA DEPARTMENT Provider, Generic External Data 02/27/2025 Refill [facility] [address] [place] [address] Milana Mata DO Chronic neck and back pain 02/24/2025 11:00 AM EDT Office Visit [facility] [address] [place] [phone] Zena Galo MD Palpitations (Primary Dx) 02/20/2025 1:00 PM EDT Office Visit [facility] [address] [address] Pruritus of both eyes (Primary Dx); Palpitations 01/29/2025 Refill [facility] [address] [place] [address] Milana Mata DO Chronic neck and back pain 01/06/2025 Orders Only [facility] External Provider, [facility] 01/05/2025 11:30 AM EDT Office Visit [facility] [address] [place] [phone] Milana Mata DO New onset type 2 diabetes mellitus (CMS/HCC) (Primary Dx) 01/05/2025 Travel 01/02/2025 Population Health Risk Score [facility] () Department [address] [place] [phone] Provider, Population Health Generic 01/01/2025 Telephone [facility] [address] [place] [phone] Cristine Savage, RN Results 12/31/2024 10:45 AM EDT Office Visit [facility] [address] [place] [phone] Milana Mata DO Essential hypertension (Primary Dx); Other hyperlipidemia; Prediabetes; Major depression, recurrent, chronic (CMS/HCC); Seizure disorder (CMS/HCC); Clotting disorder (CMS/HCC); Polyarthralgia; Chronic abdominal pain; Obstructive sleep apnea; Seasonal allergic rhinitis, unspecified trigger; Chronic neck and back pain; Healthcare maintenance 12/31/2024 Telephone [facility] [address] [place] [address] Milana Mata DO Durable Medical Equipment (DME Order: CPAP) 12/31/2024 Travel 12/24/2024 Refill [facility] [address] [place] [address] Sandra De Jesus FNP Anxiety state 12/10/2024 Refill [facility] [address] [place] [address] Milana Mata DO Cervical neck pain with evidence of disc disease from Last 3 Months Immunizations Immunization Administration Dates Next Due Hep B, adult [...] Sign Reading Time Taken Comments Blood Pressure 116/79 02/24/2025 11:08 AM EDT Pulse 78 02/24/2025 11:08 AM EDT Temperature 36.8 ??C (98.2 ??F) 02/24/2025 11:08 AM E DT Respiratory Rate 21 02/24/2025 11:08 AM EDT Oxygen Saturation 98% 02/24/2025 11:08 AM EDT Inhaled Oxygen Concentration - - Weight 97.5 kg (215 lb) 02/24/2025 11:08 AM EDT Height 165.1 cm (5' 5 ) 02/24/2025 11:08 AM EDT Body Mass Index 35.78 02/24/2025 11:08 AM EDT Plan of Treatment Upcoming Encounters Date Type Department Care Team (Late st Contact Info) Description 03/20/2025 10:00 AM EDT Telemedicine [facility] [address] [place] [address] Milana Mata DO [address] [place] [address] Health Maintenance Due Date Last Done Comments CT Colonography 1969 Dental Oral Exam 1969 Dental Prophylaxis 1969 Dental X-Ray: Full Mouth 1969 FIT DNA/Cologuard 1969 Sigmoidoscopy 1969 Diabetes: Foot Exam 1979 FIT 11/15/2024 11/15/2023 FOBT 11/15/2024 11/15/2023 SDOH Screening 04/25/2025 04/25/2024 Diabetes: Hemoglobin A1C 07/08/2025 025, 12/31/2024, 07/28/2024, Additional history exists Diabetes: Urine Protein Screening 07/28/2025 07/28/2024, 09/20/2021 Lipid Panel 07/28/2025 07/28/2024, 06/, 08/30/2022, Additional history exists Dental X-Ray: Bitewings 08/22/2025 08/21/2024 Eye Exam 11/26/2025 11/26/2023, 0202/2024, 11/26/2023, Additional history exists Alcohol/Substance Use Screening [...] patient's age to complete this topic Meningococcal B Vaccine Aged Out No l onger eligible based on patient's age to complete [...] TROPONIN I Routine 02/28/2025 6:47 PM EDT B TYPE NATRIURETIC PEPTIDE (BNP) Routine 02/28/2025 6:47 PM EDT MAGNESIUM Routine 02/28/2025 6:47 PM EDT COMPREHENSIVE METABOLIC PANEL Routine 02/28/2025 6:47 PM EDT PROTHROMBIN TIME-INR Routine 02/28/2025 6:47 PM EDT CBC WITH AUTO DIFFERENTIAL Routine 02/28/2025 6:47 PM EDT SARS COV2/INFLUENZA A/B AND RSV RNA QL NAAT Routine 02/28/2025 6:47 PM EDT ECG 12-LEAD Routine 02/24/2025 11:39 AM EDT Palpitations BASIC METABOLIC PANEL Routine 02/20/2025 1:37 PM EDT Palpitations CBC WITH AUTO DIFFERENTIAL Routine 02/20/2025 1:37 PM EDT Palpitations TSH W/REFLEX TO FT4 Routine 02/20/2025 1 :[address] ABDOMEN PELVIS W CONTRAST Routine 01/06/2025 [...] Recently Relevant to Health Maintenance Results * XR Chest 2 Views (02/28/2025 7:44 PM EDT) Anatomical Region Laterality Modality Chest Radiographic Marybel ging 02/28/2025 7:44 PM EDT Narrative 02/28/2025 7:45 PM EDT ? [facility] ?[address] ?[place] [address] ?XRay Report ? Signed ? Patient: Jose Alberto Frey,Reynaldo ?MR#: [id number] ?? [id number] ? : 1970 ?Acct:[id number] ? Age/Sex: 55 / M ?ADM Date: 05/10/25 ? Loc: HO.ED ? Attending Dr: ? Ordering Physician: Cristy Alamo ?? Date of Service: 02/28/25 ?? Procedure(s): XR chest 2V ?? Accession Number(s): [id number] ? cc: Cristy Alamo; Milana Mata DO [...] ? DD/ 43 ? TD/TT: 02/28/251943 ? Senior Principal Architect: ? Procedure Note Sheldon Sellers - 02/28/2025 [place] [address] XRay Report Signed Patient: Patrick Osuna#: [id number] : 1970Acct:[id number] Age/Sex: 55 / MADM Date: 02/28/25 Loc: HO.ED Attending Dr: Ordering Physician: Cristy Alamo Date of Service: 02/28/25 Procedure(s): XR chest 2V Accession Number(s): [id number] cc: Cristy Alamo; Milana Mata DO CLINICAL [...] in OV> 02/28/251944 DD/ 43 TD/TT: 02/28/251943 Senior Principal Architect: [facility] External Provider IMG XR PROCEDURES Edited Result - Final * High Sensitivity Troponin I (02/28/2025 6:47 PM EDT) TROPONIN I HIGH SENSITIVITY <2.7 <3.5 - 35.0 ng/L [facility] Comment:The Maier high sens itivity Troponin-I results should beused in conjunction with other diagnostic information suchas ECG, clinical observations and information, and patientsymptoms to aid in the diagnosis of SC. 02/28/2025 6:47 PM EDT 02/28/2025 6:50 PM EDT Generic External Data Provider LAB BLOOD ORDERAB LES Final Result [facility] [address] [place] [phone] * SARS-CoV-2 RNA, Influenza A/B, and RSV RNA, Ql NAAT (02/28/2025 6:47 PM EDT) Pathologist [facility] Influenza A PCR NEGATIVE Negative [facility] Influenza B PCR NEGATIVE Negative [facility] Resp Syncy Virus RNA Qual PCR NEGATIVE Negative [facility] SARS COV2 PCR NEGATIVE Negative [facility] Comment:All test results mus t be [...] use by authorized laboratories.Testing performed on the [employer] GeneXpert utilizingreal-time RT-PCR.All SARS CoV2 and positive influenza A/B results arereported to [facility]. 02/28/2025 6:47 PM EDT 02/28/2025 6:50 PM EDT us Generic External Data Provider LAB MICROBIOLOGY - GENERAL ORDERABLES Final Result [facility] [address] [place] [phone] [phone] * (ABNORMAL) CBC auto differential (02/28/2025 6:47 PM EDT) Only the most recent of2 resultswithin the time period is included. White Blood Count 9.9 4.8 - 10.8 X10*3/uL [facility] Red Blood Count 4.63 4.60 - 5.80 X10*6/uL [facility] Hemoglobin 12.1(L) 14.0 - 18.0 g/dl [facility] Hematocrit 36.9(L) 42.0 - 52.0 % [facility] Mean Corpuscular Volume 79.7(L) 80.0 - 98.0 fL [facility] Mean Corpuscular Hemoglobin 26.1(L) 27.0 - 33.0 pg [facility] Mean Corpuscular HGB Conc 32.8 31.0 - 36.0 g/dl [facility] Red Cell Distribution Width 14.6 11.0 - 16.0 % [facility] Platelet Count 228 160 - 400 X10*3/uL [facility] Mean Platelet Volume 11.1 9.4 - 12.4 fL [facility] Neutrophils Percent Auto 68.4 45 - 73 % [facility] Imm Gran Pct Auto 0.2 0.0 - 0.4 % [facility] Lymphocytes Percent Auto 23.5 20 - 40 % [facility] Monocytes Percent Auto 6.3 2 - 11 % [facility] Eosinophils Percent Auto 1.3 0 - 4 % [facility] Basophils Percent Auto 0.3 0 - 2 % [facility] NRBC Pct Auto 0.0 0.0 - 0.2 /100WBC [facility] Neutrophils Absolute Auto 6.8 2.0 - 8.3 x10*3/uL [facility] Imm Gran Abs Auto 0.02 0.00 - 0.03 X10*3/uL [facility] Lymphocytes Absolute Auto 2.3 1.2 - 4.9 X10*3/uL [facility] Monocytes Absolute Auto 0.6 0.1 - 1.2 X10*3/uL [facility] Eosinophils Absolute Auto 0.1 0.0 - 0.4 X10*3/uL [facility] Basophils Absolute Auto 0.0 0.0 - 0.2 X10*3/uL [facility] NRBC Abs Auto 0.000 0.0 - 0.012 X10*3/uL [facility] 02/28/2025 6:47 PM EDT 02/28/2025 6:50 PM EDT us Generic External Data Provider LAB BLOOD ORDERAB LES Final Result Performing Organization Address City/State/[facility] Co de Phone Number [facility] [address] [place] [phone] * (ABNORMAL) Prothrombin Time-INR (02/28/2025 6:47 PM EDT) Prothrombin Time 13.8(H) 10.9 - 12.4 SEC [facility] INTERNATIONAL NORM RATIO 1.2(H) 0.9 - 1.1 [facility] Comment:INTERNATIONAL NORMAL IZED RATIO [...] ORDERAB LES Final Result Performing Organization Address [facility] Co de Phone Number [facility] [address] [place] [phone] * B Type Natriuretic Peptide (BNP) (02/28/2025 6:47 PM EDT) Pathologist [facility] B Type Natriuretic Peptide <10 <100 pg/mL [facility] 02/28/2025 6:47 PM EDT 02/28/2025 6:50 PM EDT us Generic External Data Provider LAB BLOOD ORDERAB LES Final Result Performing Organization Address [facility] Co de Phone Number [facility] [address] [place] [phone] * Magnesium (02/28/2025 6:47 PM EDT) Pathologist [facility] Magnesium 1.8 1.6 - 2.6 mg/dL [facility] 02/28/2025 6:47 PM EDT 02/28/2025 6:50 PM EDT Generic External Data Provider LAB BLOOD ORDERAB LES Final Result Performing Organization Address [facility] de Phone Number [facility] [address] [place] [phone] * Comprehensive Metabolic Panel (02/28/2025 6:47 PM EDT) Pathologist [facility] Sodium 143 135 - 145 mmol/L [facility] Potassium 3.6 3.3 - 5.1 mmol/L [facility] Chloride 104 96 - 108 mmol/L [facility] Carbon Dioxide 28 22 - 29 mmol/L [facility] Anion Gap 15 12 - 20 [facility] Urea Nitrogen (BUN) 12 9 - 16 mg/dL [facility] Creatinine, Serum 0.78 0.5 - 1.4 mg/dL [facility] Creatinine Clr Calc Pharmacy 113.7 [facility] Comment:eGFR (calculated fro m the MDRD study equation) and eCrCl(calculated from the Cockcroft-Gault equation) are based ondifferent parameters and may not yield comparable results.If eCrCl result is absurd, please check patient'sheight/weight. Estimated Glomerular Filt Rate >60 [facility] Comment:Chronic Kidney Disea se: Estimated GFR < 60 mL/min/1.59x7Stfrfu Kidney Disease: Estimated GFR < 15 mL/min/1.73m2 Glucose 97 60 - 115 mg/dL [facility] Calcium 9.2 8.4 - 10.2 mg/dL [facility] Bilirubin, Total 0.3 0.0 - 1.0 mg/dL [facility] Aspartate Amino Transferase 21 5 - 37 U/L [facility] Alanine Aminotransferase 20 0 - 40 U/L [facility] Total Protein 7.5 6.5 - 8.0 g/dL [facility] Albumin Level 4.3 3.5 - 5.0 g/dL [facility] Alkaline Phosphatase 93 39 - 117 U/L [facility] 02/28/2025 6:47 PM EDT 02/28/2025 6:50 PM EDT us Generic External Data Provider LAB BLOOD ORDERAB LES Final Result [facility] [address] [place] [phone] * ECG 12 lead (02/24/2025 11:39 AM EDT) Narrative Zena Galo MD - 02/24/2025 11:39 AM EDT NSR 66 bpm us Zena Galo MD ECG ORDERABLES Final Resu lt * TSH W/Reflex to FT4 (02/20/2025 1:37 PM EDT) TSH reflex Free T4 0.60 0.32 - 4.0 uIU/mL [facility] Blood Venous blood specimen / Unknown 02/20/2025 1:37 PM EDT 02/20/2025 4:06 PM EDT us Kiara Cheng STAFFING AND SCHEDULING COORDINATOR LAB BLOOD ORDERABLES Final Resu lt Performing Organization Address [facility] Co de Phone Number [facility] [address] [place] [phone] [phone] * (ABNORMAL) Basic Metabolic Panel (02/20/2025 1:37 PM EDT) Pathologist [facility] Sodium 140 135 - 145 mmol/L [facility] Potassium 3.9 3.3 - 5.1 mmol/L [facility] Chloride 103 96 - 108 mmol/L [facility] Carbon Dioxide 30(H) 22 - 29 mmol/L [facility] Anion Gap 11(L) 12 - 20 [facility] Urea Nitrogen (BUN) 14 9 - 16 mg/dL [facility] Creatinine, Serum 0.75 0.5 - 1.4 mg/dL [facility] Estimated Glomerular Filt Rate >60 [facility] Comment:Chronic Kidney Disea se: Estimated GFR < 60 mL/min/1.52h3Bdzphm Kidney Disease: Estimated GFR < 15 mL/min/1.73m2 Glucose 90 60 - 115 mg/dL [facility] Calcium 9.3 8.4 - 10.2 mg/dL [facility] Blood Venous blood specimen / Unknown 02/20/2025 1:37 PM EDT 02/20/2025 4:06 PM EDT us Kiara Hoff STAFFING AND SCHEDULING COORDINATOR LAB BLOOD ORDERABLES Final Resu lt Performing Organization Address [facility]/ZIP Co de Phone Number [facility] [address] [place] [phone] [phone] * CT Abdomen Pelvis w/ Contrast (01/06/2025 10:04 AM EDT) Anatomical Region Laterality Modality Body, Pelvis, Abdomen Computed T omography 01/06/2025 10:0 4 AM EDT Narrative 01/06/2025 11:38 AM EDT ? [facility] ?[address] ?[place] [address] ? CT Scan Report ? Signed ? Patient: Jose Alberto Frey,Reynaldo ?MR#: [id number] ?? [id number] ? : 1970 ?Acct:[id number] ? Age/Sex: 54 / M ?ADM Date: 01/06/25 ? Loc: HO.CT ? Attending Dr: Raphael Powell MD ? Ordering Physician: Raphael Powell MD ?? Date of Service: 01/06/25 ?? Procedure(s): CT abdomen pelvis w IV con ?? Accession Number(s): [id number] ? cc: Raphael Powell MD; Milana Mata DO ? Report Number: ?? [id number]: Total DLP = ??565.00 mGy-cm ?? EXAMINATION: [...] DD/ 1004 ? TD/TT: 01/06/25 1035 ? Senior Principal Architect: ? Procedure Note Verito, Image - 01/06/[address] [address] [address] Scan Report Signed Patient: Patrick Osuna#: [id number] : 1970Acct:[id number] Age/Sex: 54 / MADM Date: 01/06/25 Loc: HO.CT Attending Dr: Raphael Powell MD Ordering Physician: Raphael Powell MD Date of Service: 01/06/25 Procedure(s): CT abdomen pelvis w IV con Accession Number(s): [id number] cc: Raphael Powell MD; Milana Mata DO Report Number: [id number]: Total DLP = 565.00 mGy-cm EXAMINATION: CT [...] 01/06/25 1134 DD/ 1004 TD/TT: 01/06/25 1035 Senior Principal Architect: [facility] External Provider IMG CT PROCEDURES Final Result * (ABNORMAL) POCT HGB A1C (01/05/2025 12:26 PM EDT) [facility] Hemoglobin A1C 6.4(A) 4.0 - 6.0 % QC Media Lot # [id number] Lot# Expiration Date ,026 Blood 01/05/2025 12:2 6 PM EDT Milana Mata DO POINT OF CARE TEST ENTER/MITZI T ORDERABLES Final Result * POCT Glucose (01/05/2025 12:25 PM EDT) Glucose Blood, POC 124 60 - 200 mg/dL QC Media Lot # [id number] Lot# Expiration Date [id number] Blood Capillary blood specimen / Unknown 01/05/2025 12:25 PM EDT Milana Mata DO POINT OF CARE TEST ENTER/MITZI T ORDERABLES Final Result * (ABNORMAL) Hemoglobin A1c (12/31/2024 12:22 PM EDT) Hemoglobin A1c 6.5(H) <6.0 % [facility] Comment:Hemoglobin A1C Refer ence Range Adults: 4.8 - 6.0 % Non diabetic: < 6.0 % Goal: < 7.0 %Additional Action Suggested: > 8.0 %Note: Hemoglobin A1c results are invalid for patients with abnormal amounts of HbF. Blood transfusions may impact the HbA1c concentration in the patient sample. Estimated Average Glucose 140 mg/dL [facility] Comment:eAG = Estimated ave rage glucose which is %A1C expressed asaverage glucose, using the formula of the [id number] Glucose study (ADAG), Diabetes Care, Vol.31,#8,2007 Blood Venous blood specimen / Unknown 12/31/2024 12:22 PM EDT 12/31/2024 1:49 PM EDT Milana Adolfo SALVADOR LAB BLOOD ORDERABLES Final R esult Performing Organization Address City/[facility]/ZIP Co de Phone Number [facility] [address] [place] [phone] * Hepatitis C Antibody with Reflex to HCV, RNA, Quantitative, Real-Time PCR (07/28/2024 10:21 AM EDT) Hepatitis C Antibody Nonreactive Nonreactive [facility] Comment:Antibodies to HCV no t detected; does not exclude early acuteHCV infection. Blood Venous blood specimen / Unknown 07/28/2024 10:21 AM EDT 07/28/2024 11:15 AM EDT Milana Adolfo LAB BLOOD ORDERABLES Final R esult Performing Organization Address [facility]/ZIP Co de Phone Number [facility] [address] [place] [phone] * HIV-1/2 Antigen and Antibodies, Fourth Generation, with Reflexes (07/28/2024 10:21 AM EDT) HIV AB/AG Nonreactive Nonreactive [facility] Comment:HIV-1 p24 Ag and/or HIV-1/HIV-2 Ab not detected.A test result that is nonreactive does not exclude thepossibility of exposure to or infection with HIV-1 and/orHIV-2. Nonreactive results in this assay for individualswith prior exposure to HIV-1 and/or HIV-2 may be due toantigen and antibody levels that are below the limit ofdetection of this assay.The [employer] HIV Ag/Ab Combo assay result andsupplemental assay results should be interpreted inconjunction with the patient's clinical presentation,history and other laboratory results. If the results areinconsistent with clinical evidence, additional testing issuggested to confirm the result. Blood Venous blood specimen / Unknown 07/28/2024 10:21 AM EDT 07/28/2024 11:15 AM EDT us Milana Mata DO LAB BLOOD ORDERABLES Final R esult [facility] [address] [place] [phone] * (ABNORMAL) Lipid Panel, Standard (07/28/2024 10:21 AM EDT) Triglycerides 116 <150 mg/dL [facility] Comment:Desirable Triglyceri de: less than 150 mg/dLBorderline High Triglyceride 150-199 mg/dLHigh Triglyceride: 200-499 mg/dLVery High Triglyceride: greater than or equal to 5OO mg/dL Cholesterol 127 <200 mg/dL [facility] Comment:Desirable Cholestero l: less than 200 mg/dLBorderline High Cholesterol: 200-239 mg/dLHigh Cholesterol: greater than 239 mg/dL LDL Cholesterol Calculated 67 <100 mg/dL [facility] Comment:Desirable LDL: less than 100 mg/dLNear Optimal/Above Optimal LDL: 110- 129 mg/dLBorderline High LDL: 130-159 mg/dLHigh LDL: 160-189 mg/dLVery High LDL: greater than or equal to 190 mg/dL HDL Cholesterol 37(L) >40 mg/dL [facility] Comment:Desirable HDL: great er than 40 mg/dL Note: This HDL assay may give artificially low results in patients with liver disease. Blood Venous blood specimen / Unknown 07/28/2024 10:21 AM EDT 07/28/2024 10:55 AM EDT us Milana Mata DO LAB BLOOD ORDERABLES Final R esult Performing Organization Address [facility] Co de Phone Number [facility] [address] [place] [phone] * Albumin, Random Urine W/Creatinine (07/28/2024 10:13 AM EDT) Creatinine, Urine 102.76 mg/dL [facility] Microalbumin Urine <5.0 mg/L [facility] Microalbum Creatinine Ratio Ur TNP <30 ug/mg cr [facility] Comment:Unable to calculate albumin/creatinine ratio due to lowmicroalbumin or creatinine result. Urine (Urine, Random) 07/28/2024 10:13 AM EDT 07/28/2024 10:55 AM EDT Milana Mata DO LAB URINE ORDERABLES Final R esult Performing Organization Address [facility] Co de Phone Number [facility] [address] [place] [phone] * (ABNORMAL) Fecal Globin by Immunochemistry (11/15/2023 9:03 AM EST) Fecal Globin By Immunochemistry SEE NOTE(A) [facility] Comment:FECAL GLOBIN BY IMMU NOCHEMISTRY Micro Number: [id number] Test Status: Final Specimen Source: Not given Specimen Quality: Adequate Fecal Globin: DetectedTHIS TEST WAS PERFORMED AT:[facility] [address] [id number] VLILALPANDO MD Stool Rectal contents / Unknown 11/15/2023 9:03 AM EST 11/15/2023 12:27 PM EST Fátima Bridges OPTICAL LABORATORY TECHNICIAN LAB BODY FLUIDS AND STOOLS ORD ERABLES Final Result [facility] [address] [place] [phone] * Colonoscopy (04/19/2023 2:32 PM EDT) Colonoscopy Normal Normal Comment:Repeat in 5 years Historical Provider HEALTH MAINTENANCE Final Result from Last 3 Months or Most Recently Relevant to Health Maintenance Insurance [facility] STAND ADULT Care Teams Railroad Conductor Relationship Specialty Start Date End Date Milana Mata DO [address] [place] [address] PCP - General Family Medicine 07/02/24
--- OUTSIDE RECORDS SUMMARY | 2025-03-05 14:16 | XMS_ITS | Encounter Summary ---
Author Organization [employer] Address [address] 7t [place] [address] Care Team Providers Care Train Caller Name Role Phone GenetMilana dallas Primary Care Provider + [phone] Reason for Visit * Reason Comments Med Refill Encounter Details Date Type Department Care Team ([facility] st Contact Info) Description 03/05/2025 Refill [facility] MED & PEDS [address] [place] [address] Sandra De Jesus FNP [address] [facility] [place] [address] Social History Tobacco Use Types Packs/Day Years [...] Info) Description 03/20/2025 10:00 AM EDT Telemedicine [facility] MEDICINE [address] [place] [address] Milana Mata DO [address] [place] [address] documented as of this encounter Visit Diagnoses Not on filedocumented in this encounter Additional Health Concerns Assessment Noted Time PHQ-9 Depression Total Score: 0 01/01/20 25 10:51 AM EDT documented as of this encounter Care Teams Train Caller Relationship Specialty Start Date End Date Milana Mata DO [address] [place] [address] PCP - General Family Medicine 07/02/24 documented as of this encounter
--- OUTSIDE RECORDS SUMMARY | 2025-03-05 14:16 | XMS_ITS | Encounter Summary ---
Author Organization [employer] Address [address] [facility] 7t [place] [address] Care Team Providers Care Air Defense Artillery Officer Name Role Phone Sandra De Jesus Primary Care Provider [phone] Jimi, Daniel العراقي Primary Care Provider [phone] Milana Mata DO Primary Care Provider + [phone] Reason for Visit * Reason Onset Date Comments CLOTH LAYER Reevaluation 05/06/2024 Encounter Details Date Type Department Care Team ([facility] st Contact Info) Description 05/06/2024 Telephone [facility] MEDICINE [address] [place], [place] [phone] Sandra De Jesus FNP [address] [place], [place] [phone] [employer]OTH [employer] Reevaluation Social History Tobacco Use Types Packs/Day [...] 05/13/2024 9:28 AM EDT Return call from Isidra, explain that client want to re-start foster care program, Isidra advised to fax form to [facility], provider will review it and will contact agency if needed anything. Isidra verbally greed and understood. * Telephone Encounter - Alexys Orozco RN - 05/13/2024 9:09 AM EDT T/C x 2 am to [phone] for isidra for below message, No answer. Deputy Chief Executive sent message to call back on [phone]. T/C to lissett to inform that [facility] is trying to call [employer] company for below message , but not able to contact them. LVM to call back on [phone]. Lissett states she is going to call them, Lissett also informed if [employer] company / [employer] is missing any sign please fax documents on [phone] to get sign from PCP. Lissett states she is going to call to company. * Telephone Encounter - Lorena Waldrop - 05/12/2024 4:06 PM EDT Tc from pt spouse regarding message below. * Telephone Encounter - Alexys Orozco RN - 05/12/2024 10:05 AM EDT T/C to [phone] for isidra for below message, No answer. Deputy Chief Executive sent message to call back on [phone]. * Telephone Encounter - Humberto Arauz - 05/12/2024 9:52 AM EDT Tc from [facility] requesting a status on PCP order form. Please see notes. Please contact at [phone] ( ask for isidra ) * Telephone Encounter - Brenda Gifford - 05/09/2024 12:35 PM EDT Tc from pt and Lissett requesting a call back in regards below message. Please contact at [phone] * Telephone Encounter - Alexys Orozco RN - 05/06/2024 4:21 PM EDT T/C to pt. For below message, pt. States his [employer] company called him and states PCP discontinue the service for CLOTH L[employer]ER services, pt. States he is having upcoming surgery and needs CLOTH LAYER services. RN cannotsee any notes that says [...] Info) Description 03/20/2025 10:00 AM EDT Telemedicine [facility] MEDICINE [address] [place] [address] Milana Mata DO [address] [place] [address] documented as of this encounter Visit Diagnoses Not on filedocumented in this encounter Additional Health Concerns Assessment Noted Time PHQ-9 Depression Total Score: 8 11/15/19 24 9:20 AM EST documented as of this encounter Care Teams Air Defense Artillery Officer Relationship Specialty Start Date End Date Sandra De Jesus FNP [address] [place] [address] PCP - General Family Medicine 07/06/23 06/23/24 Name, MD Daniel [address] [place] [address] PCP - General Internal Medicine 06/24/24 07/01/24 Milana Mata DO [address] [place] [address] PCP - General Family Medicine 07/02/24 documented as of this encounter
--- OUTSIDE RECORDS SUMMARY | 2025-03-05 14:16 | XMS_ITS | Encounter Summary ---
Author Organization [employer] Address [address] [facility] [address] 7t [place] [address] Care Team Providers Care Business Unit Controller Name Role Phone Milana Mata DO Primary Care Provider + [phone] Reason for Visit * Reason Comments Med Refill Encounter Details Date Type Department Care Team (Late st Contact Info) Description 02/27/2025 Refill [facility] CHC MED & PEDS [address] [place], [place] [phone] Milana Mata DO [address] [facility] [place] [address] Chronic neck and back pain Social History Tobacco Use Types Packs/Day Years [...] Telephone Encounter - Cristine Savage RN - 03/02/2025 8:54 AM EDT Cain reviewed again today, rx pended * Telephone Encounter - Cristine Savage RN - 02/27/2025 1:55 PM EDT Cain reviewed, pt. Last picked up 28 day supply 02/03/25, rx will be due 03/03/25. Will pend to PCP 03/02/25 documented in this encounter Plan of Treatment Upcoming Encounters Date Type Department Care Team (Late st Contact Info) Description 03/20/2025 10:00 AM EDT Telemedicine [facility] MEDICINE [address] [place] [address] Milana Mata DO [address] [place] [address] documented as of this encounter Visit Diagnoses Diagnosis Chronic neck and back pain documented in this encounter Additional Health Concerns Assessment Noted Time PHQ-9 Depression Total Score: 0 01/01/20 25 10:51 AM EDT documented as of this encounter Care Teams Business Unit Controller Relationship Specialty Start Date End Date Milana Mata DO [address] [place] [address] PCP - General Family Medicine 07/02/24 documented as of this encounter
--- OUTSIDE RECORDS SUMMARY | 2025-03-05 14:16 | XMS_ITS | Encounter Summary ---
Author Organization [employer] Address [address] [facility] [address] 7t [place] [address] Care Team Providers Care Photoengraving Proofer Apprentice Name Role Phone Sandra De Jesus Primary Care Provider + Daniel Krause MD Primary Care Provider [phone] Milana Mata DO Primary Care Provider + Reason for Visit * Reason Comments Med Refill Encounter Details Date Type Department Care Team (Late st Contact Info) Description 09/30/2023 Refill [facility] MEDICINE [address] [place] [address] Campbell Salguero AGNP Social History Tobacco Use [...] Info) Description 03/20/2025 10:00 AM EDT Telemedicine [facility] MEDICINE [address] [place] [address] Milana Mata DO 230 [place] [address] documented as of this encounter Visit Diagnoses Not on filedocumented in this encounter Additional Health Concerns Assessment Noted Time PHQ-9 Depression Total Score: 12 023 2:23 PM EDT documented as of this encounter Care Teams Photoengraving Proofer Apprentice Relationship Specialty Start Date End Date Sandra De Jesus FNP [address] [place] [address] PCP - General Family Medicine 07/06/23 06/23/24 Name, MD Daniel [address] [place] [address] PCP - General Internal Medicine 06/24/24 07/01/24 Milana Mata DO [address] [place] [phone] PCP - General Family Medicine 07/02/24 documented as of this encounter
--- OUTSIDE RECORDS SUMMARY | 2025-03-05 14:16 | XMS_ITS | Encounter Summary ---
Author Organization [employer] Address [address] [facility] 7t [place] [address] Care Team Providers Care Digital Media Buyer Name Role Phone Sandra De Jesus Primary Care Provider [phone] Jimi, Daniel العراقي Primary Care Provider [phone] Milana Mata DO Primary Care Provider [phone] Reason for Visit * Reason Comments Med Refill Encounter Details Date Type Department Care Team (Late st Contact Info) Description 10/21/2023 Refill [facility] MEDICINE [address] [place] [address] Sandra De Jesus FNP [address] [place], [place] [phone] Social History Tobacco Use Types Packs/Day Years [...] Info) Description 03/20/2025 10:00 AM EDT Telemedicine [facility] MEDICINE [address] [place] [address] Milana Mata DO [address] [place] [address] documented as of this encounter Visit Diagnoses Not on filedocumented in this encounter Additional Health Concerns Assessment Noted Time PHQ-9 Depression Total Score: 12 023 2:23 PM EDT documented as of this encounter Care Teams Digital Media Buyer Relationship Specialty Start Date End Date Sandra De Jesus FNP [address] [place] [address] PCP - General Family Medicine 07/06/23 06/23/24 Daniel Krause MD [address] [place] [address] PCP - General Internal Medicine 06/24/24 07/01/24 Milana Mata DO [address] [place] [address] PCP - General Family Medicine 07/02/24 documented as of this encounter
--- OUTSIDE RECORDS SUMMARY | 2025-03-05 14:16 | XMS_ITS ---
Author Organization [facility] Address [address] [place] [address] Care Team Providers Care Area Field Worker Name Role Phone Milana Mata M.D. Primary [...] Problem Status W/U Status Risk Notes Problem [id number] Generalized abdominal pain (R10.84) Active confirmed Vital Signs Temperature 98.7 degrees Fahrenheit 11/12/19 25 Blood pressure systolic 000 mm Hg 11/12/19 25 Blood pressure diastolic 00 mm Hg 025 Height 65 in 11/12/2024 Weight 224 lb 2 oz lbs 11/12/2024 BMI 37.29 kg/m2 11/12/2024 Encounters Encounter Location Date Provider Diagnosis [facility] [address] [place] [address] 11/12/2024 Raphael Powell Jr Generalized abdominal pain [...] and we will get his records from [facility] where he had sigmoid resection. Plan [...] 10:40:00 AM, [address], [address], [place], [address], Progress Notes * REYNALDO SOARESDOB:1970 (54 yo M)Acc No.[id number]:11/12/2024 Progress Notes Patient:?REYNALDO SOARES Provider:?Raphael Powell MD :1970???Age:54 Y???Sex:Male Gagan e:11/12/2024 Address:[address] [place] [address], [facility] Pcp:iMlana Mata M.D. Subjective: * Chief Complaints: * [...] and we will get his records from [facility] where he had sigmoid resection. Plan: * [...] MD Date:?0 11/12/2024 Generated for Phil walter/Filippo/eTransmitting on:?03/05/2025 02:16 PM EDT History and Physical Notes * [...]
--- OUTSIDE RECORDS SUMMARY | 2025-03-05 14:17 | XMS_ITS | Encounter Summary ---
Author Organization [employer] Address [address] [facility] [address] 7t [place] [address] Care Team Providers Care Production Broaching Machine Operator Name Role Phone Campbell Salguero Primary Care Provider Unavail Sandra Mercado Primary Care Provider + Daniel Krause MD Primary Care Provider [phone] Milana Mata DO Primary Care Provider [phone] Encounter Details Date Type Department Care Team ([facility] Contact Info) Description 04/25/2023 Telephone [facility] MEDICINE [address] [place] [address] Earlene Lange LPN Social History Tobacco Use [...] Upcoming Encounters Date Type Department Care Team ([facility] Contact Info) Description 03/20/2025 10:00 AM EDT Telemedicine [facility] MEDICINE [address] [place] [address] Milana Mata DO [address] [place] [address] documented as of this encounter Visit Diagnoses Not on filedocumented in this encounter Additional Health Concerns Assessment Noted Time PHQ-9 Depression Total Score: 023 2:23 PM EDT documented as of this encounter Care Teams Production Broaching Machine Operator Relationship Specialty Start Date End Date Campbell Salguero AGNP PCP - General Family Medicine 09/25/22 07/05/23 Sandra [place] [address] PCP - General Family Medicine 07/06/23 06/23/24 Jimi, MD Daniel [address] [place] [address] PCP - General Internal Medicine 06/24/24 07/01/24 Milana Mata DO [address] [place] [address] PCP - General Family Medicine 07/02/24 documented as of this encounter
--- OUTSIDE RECORDS SUMMARY | 2025-03-05 14:17 | XMS_ITS | Encounter Summary ---
Author Organization [employer] Address [address] [facility] 7t [place] [address] Care Team Providers Care Roller Stitcher Name Role Phone Jose M Campbell AGNAny Primary Care Provider Unavail Sandra MercadoP Primary Care Provider [phone] NameDaniel MD Primary Care Provider [phone] Milana Mata DO Primary Care Provider + [phone] Reason for Visit * Reason Comments Med Refill Encounter Details Date Type Department Care Team (Late Contact Info) Description 07/04/2023 Refill [facility] MEDICINE [address] [place] [address] Name, MD Daniel [address] [place], [place] [phone] Social History Tobacco Use Types Packs/Day Years [...] Info) Description 03/20/2025 10:00 AM EDT Telemedicine [facility] MEDICINE [address] [place] [address] Milana Mata DO [address] [place] [address] documented as of this encounter Visit Diagnoses Not on filedocumented in this encounter Additional Health Concerns Assessment Noted Time PHQ-9 Depression Total Score: 12 023 2:23 PM EDT documented as of this encounter Care Teams Roller Stitcher Relationship Specialty Start Date End Date Campbell Salguero AGNP PCP - General Family Medicine 09/25/22 07/05/23 Sandra De Jesus FNP [address] [place] [address] PCP - General Family Medicine 07/06/23 06/23/24 Jimi, MD Daniel [address] [place] [address] PCP - General Internal Medicine 06/24/24 07/01/24 Milana Mata DO [address] [place] [address] PCP - General Family Medicine 07/02/24 documented as of this encounter
--- OUTSIDE RECORDS SUMMARY | 2025-03-05 14:17 | XMS_ITS | Encounter Summary ---
Author Organization [employer] Address [address] [facility] 7t [place] [address] Care Team Providers Care Community Sports Coordinator Name Role Phone Jose M Campbell VERONICA Primary Care Provider Unavail Sandra MercadoP Primary Care Provider + Daniel Krause MD Primary Care Provider [phone] Milana Mata DO Primary Care Provider + Reason for Visit * Reason Comments Med Refill Encounter Details Date Type Department Care Team ([facility] st Contact Info) Description 04/05/[address] [facility] CHC MED & PEDS [address] [place], [place] [phone] Evie Francisco MD [address] [place] [address] Allergic rhinitis, unspecified seasonality, unspecified trigger Social [...] Description 03/20/2025 10:[address] [facility] MEDICINE 230 [place] [address] Milana Mata DO [address] [place] [address] documented as of this encounter Visit Diagnoses Diagnosis Allergic rhinitis, unspecified seasonality, unspecified trigger documented in this encounter Additional Health Concerns Assessment Noted Time PHQ-9 Depression Total Score: 12 023 2:23 PM EDT documented as of this encounter Care Teams Community Sports Coordinator Relationship Specialty Start Date End Date Campbell Salguero AGNP PCP - General Family Medicine 09/25/22 07/05/23 Sandra De Jesus FNP [address] [place] [address] PCP - General Family Medicine 07/06/23 06/23/24 Name, MD Daniel [address] [place] [address] PCP - General Internal Medicine 06/24/24 07/01/24 Milana Mata DO [address] [place] [address] PCP - General Family Medicine 07/02/24 documented as of this encounter
--- OUTSIDE RECORDS SUMMARY | 2025-03-05 14:17 | XMS_ITS | Encounter Summary ---
Author Organization [employer] Address [address] [facility] 7t [place] [address] Care Team Providers Care Rubber Production Machine Operator Name Role Phone Campbell Salguero Primary Care Provider Unavail Sandra Mercado Primary Care Provider [phone] NameDaniel MD Primary Care Provider [phone] Milana Mata DO Primary Care Provider + [phone] Reason for Visit * Reason Onset Date Comments Nurse Triage 05/28/2023 Encounter Details Date Type Department Care Team (Late st Contact Info) Description 05/28/[address] [facility] MEDICINE [address] [place] [address] Campbell Salguero AGNP Nurse Triage Social History [...] 9:23 AM EDT Call to Pt with [employer]es Garage Manager [place] [id number] Pt is given message from EVIN Salguero, [...] EDT Triage call Pt gives permission for RADIOLOGY EQUIPMENT SERVICER, Lissett, to speak for Pt. PT was [...] accepted this outcome Please contact lissett at [phone] documented in this encounter Plan of Treatment Upcoming Encounters Date Type Department Care Team (Late st Contact Info) Description 03/20/2025 10:00 AM EDT Telemedicine [facility] MEDICINE [address] [place] [address] Milana Mata DO [address] [place] [address] documented as of this encounter Visit Diagnoses Diagnosis Benign prostatic hyperplasia with incomplete bladder emptying- Primary documented in this encounter Additional Health Concerns Assessment Noted Time PHQ-9 Depression Total Score: 12 023 2:23 PM EDT documented as of this encounter Care Teams Rubber Production Machine Operator Relationship Specialty Start Date End Date Campbell Salguero AGNP PCP - General Family Medicine 09/25/22 07/05/23 [place] [address] PCP - General Family Medicine 07/06/23 06/23/24 [place] [address] PCP - General Internal Medicine 06/24/24 07/01/24 [place] [address] PCP - General Family Medicine 07/02/24 documented as of this encounter
--- OUTSIDE RECORDS SUMMARY | 2025-03-05 14:17 | XMS_ITS | Patient Health Record ---
Author Organization [facility] Address [address] [place] [address] Care Team Providers Care Qc Scientist Name Role Phone Milana Mata M.D. Primary Care Provider Raphael Cortes Jr Unavailable Allergies Allergen (clinical drug ingredient) Drug/Non Drug Allergy documented on EMR Reaction Allergy Type Onset Date Status Penicillin Unknown Drug Allergy Active Results Component Value Reference Range Notes Complete Blood Count no Diff Reviewed date:01/06/2025 01:45:38 PM Interpretation: Performing Lab:[address] [id number] Notes/Report: White Blood Count 6.3 4.8-10.8 X10*3/uL [...] Panel Reviewed date:01/06/2025 01:45:32 PM Interpretation: Performing Lab:[address] [address] Notes/Report: Bilirubin Total 0.3 0.0-1.0 mg/dL Bilirubin Direct 0.1 0.0-0.5 mg/dL Aspartate Amino Transferase 24 5-37 U/L Alanine Aminotransferase 20 0-40 U/L Total Protein 8.1 6.5-8.0 g/dL Albumin Level 4.3 3.5-5.0 g/dL Alkaline Phosphatase 99 39-117 U/L Blood Urea Nitrogen Reviewed date:01/06/2025 01:45:29 PM Interpretation: Performing Lab:[address] [id number] Notes/Report: Blood Urea Nitrogen 13 9-16 mg/dL Creatinine Reviewed date:01/06/2025 01:45:24 PM Interpretation: Performing Lab:[address] [address] Notes/Report: Creatinine 0.78 0.5-1.4 mg/dL Estimated Glomerular Filt Rate > 60 Chronic Kidney Disease: Estimated GFR < 60 mL/min/1.73m2 Severe Kidney Disease: Estimated GFR < 15 mL/min/1.73m2 Lipase Reviewed date:01/06/2025 01:45:19 PM Interpretation: Performing Lab:[address] [address] Notes/Report: Lipase 20 8-78 U/L CT abdomen pelvis w con Reviewed date:01/06/2025 01:45:13 PM Interpretation: Performing Lab: Notes/Report: [address] [address] [address] Scan Report Signed Patient: Reynaldo Osuna MR#: [id number] : 1970 Acct:[id number] Age/Sex: 54 / M ADM Date: 01/06/25 Loc: HO.CT Attending Dr: Raphael Powell MD Ordering Physician: Raphael Powell MD Date of Service: 01/06/25 Procedure(s): CT abdomen pelvis w IV con Accession Number(s): [id number] cc: Raphael Powell MD; Milana Mata DO Report Number: [id number]: Total DLP = 565.00 mGy-cm EXAMINATION: CT [...] 01/06/25 1134 DD/ 1004 TD/TT: 01/06/25 1035 Autocad Draftsman: [place] [id number] CT Scan Report Signed Patient: Reynaldo Osuna MR#: [id number] : 1970 Acct:[id number] Age/Sex: 54 / M ADM Date: 01/06/25 Loc: HO.CT Attending Dr: Patricia Powell MD Ordering Physician: Raphael Powell MD Date of Service: 01/06/25 Procedure(s): CT abd omen pelvis w IV con Accession Number(s): [id number] cc: Raphael Powell MD; Milana Mata DO Report Number: [id number]: Total DLP = 565.00 mGy-cm EXAMINATION: CT [...] 01/06/25 1134 DD/ 1004 TD/TT: 01/06/25 1035 Autocad Draftsman: Reason For Referral No Information Medications Medication SIG (Take, Route, Frequency, Duration) [...] Problem Status W/U Status Risk Notes Problem 5164103 Diverticulitis o f large intestine without perforation or abscess without bleeding (K57.32) Active confirmed Problem 151494740 Generalized abdominal pain (R10.84) Active confirmed Problem 377434022 Diverticulitis (K57.92) Active confirmed Problem 063916235 Family history o f colon cancer (Z80.0) Active confirmed Problem 721583190 Acute diverticulitis (K57.92) Active confirmed Problem 59698447 Hypertension, unspecified type (I10) Active confirmed Problem 831862274 Gas bloat syndro me (K92.89) Active confirmed Vital Signs Temperature 98.7 degrees Fahrenheit 11/12/2024 Blood pressure diastolic 00 mm Hg 11/12/2024 Height 65 in 11/12/2024 Blood pressure systolic 000 mm Hg 11/12/2024 Weight 224 lb 2 oz lbs 11/12/2024 BMI 37.29 kg/m2 11/12/2024 Encounters Encounter Location Date Provider Diagnosis [facility] [address] [place] [phone] 11/12/2024 Raphael Powell Jr Generalized abdominal pain R10.84 [facility] [address] [place] [phone] 04/11/2024 Raphael Powell Jr [facility] [address] [place] [phone] 07/21/2024 Raphael Powell Jr [facility] [address] [place] [phone] 01/06/2025 Raphael Powell Jr Assessments Encounter Date [...] we will get his records from [facility] where he had sigmoid resection. Plan [...] 10:40:00 AM, [address], [address], [place], [address], Insurance Providers Payer Name Payer Address Payer Phone Subscriber Number Group Number Insured Name Patient Relationship to Insured Coverage Start Date Coverage End Date MEDICAID OF [facility] [address] [place] [phone] [id number] REYNALDO SOARES Self - patient is the [...]
--- OUTSIDE RECORDS SUMMARY | 2025-03-05 14:17 | XMS_ITS ---
Author Organization [facility] Address [address] [place] [address] Care Team Providers Care Agricultural Chemist Name Role Phone Milana Mata M.D. Primary Care Provider Fabiola vailable Raphael Powell Jr Unavailable [phone] REASON FOR VISIT Results Encounters Encounter Location Date Provider Diagnosis [facility] [address] [place] [address] 01/06/2025 Raphael Powell Jr Plan Of Treatment Next Appt Details Provider Name:Raphael yi Jr, 05/13/2025 10:40:00 AM, [address], [address], [place], [address], Progress Notes * ORAL SOARESDOB:1970 (54 yo M)Acc No.[id number]:01/06/2025 Patient:?ORAL SOARES :1970???Age:54 Y???Sex:Male Address:[address] [place] [address] [address], [place], [address] * true * Date:? Generated for Printi jose angel/Filippo/eTransmitting on:?03/05/2025 02:16 PM EDT
== END 2025-03-05 14:28 | disposition home or self-care (01) ==
LOC: HO.HSMS 13:42
PROVIDERS: PCP Nurse Practitioner Family; Visit Provider Nurse Practitioner Family
DX: G47.33 Obstructive sleep apnea (adult) (pediatric) (principal); G47.34 Idiopathic sleep related nonobstructive alveolar hypoventilation; J45.909 Unspecified asthma, uncomplicated
CPT/HCPCS: 99213

== ENCOUNTER → 2025-03-05 13:41 | Outpatient (BNVA) | payer MEDICAID, SELFPAY | PROVIDERS: PCP Nurse Practitioner Family; Visit Provider Nurse Practitioner Family | DX: G47.33 Obstructive sleep apnea (adult) (pediatric) (principal); G47.34 Idiopathic sleep related nonobstructive alveolar hypoventilation; R91.1 Solitary pulmonary nodule; J45.909 Unspecified asthma, uncomplicated; Z86.711 Personal history of pulmonary embolism | CPT/HCPCS: 99212 ==

== ENCOUNTER 2025-05-12 08:38 | Outpatient (REF) | payer MEDICAID, SELFPAY ==
--- OUTSIDE RECORDS SUMMARY | 2024-07-21 05:40 | XMS_ITS ---
Author Organization [facility] Address [address] [place] [address] Care Team Providers Care Audio Narrator Name Role Phone Adolfo Vivar, Milana Primary Care Provider Fabiola Raphael Antonio Jr Unavailable [phone] REASON FOR VISIT Patient presents today for diverticulitis Encounters Encounter Location Date Provider Diagnosis [facility] [address] [place] [address] 07/21/2024 Raphael Powell Jr Plan Of Treatment Next Appt Details Provider Name:Raphael yi Jr, 05/13/2025 10:40:00 AM, [address], [address], [place], [address], Progress Notes * ORAL SOARESDOB:1970 (55 yo M)Acc No.[id number]:07/21/2024 Progress Notes Patient: ORAL VALDOVINOS Provider: Jaye Powell MD :1970 A ge:54 Y S ex:Male Date:07/21/2024 Address:[address] [place] [address] [address], [place], [place] Pcp:Milana Mata M.D. Subjective: * Chief Complaints: * 1 . Patient presents today for diverticulitis. * Medical History: Objective: * Vitals: Assessment: Plan: * Treatment: * * The named appointment provid er may or may not be the originator of this progress note, and it is not deemed complete until electronically signed by the appointment provider. Sign off status: Pending * Provider: Jaye Powell MD Date: 0 07/21/2024 Generated for Phil walter/Filippo/Paolo on: 0 05/12/2025 08:55 AM EDT
--- NOTE | ~2025-05-12 | CT_ITS ---
EXAMINATION: CT CHEST WITH CONTRAST CLINICAL INFORMATION: Questionable nodular density, right lung on a chest x-ray. COMPARISON: CT chest PE protocol dated June 03, 2023. Correlated to recent x-ray dated February 28, 2025. TECHNIQUE: Multidetector volumetric CT imaging of the chest was obtained after the administration of 65 mL of Omnipaque 350 intravenous contrast without immediate adverse reactions. Axial MIP volume rendering provided. Sagittal and coronal reformatted images were obtained. This CT examination was performed using dose optimization techniques as appropriate, variously including the following: *Automated exposure control *Adjustment of mA and/or kV according to patient size (this includes techniques or standardized protocols for targeted exams where dose is matched to indication/reason for exam; i.e. extremities or head) *Use of iterative reconstruction technique DLP: 197 mGy centimeter. FINDINGS: ACTUARIAL TRAINEE: No hyperinflation. Cardiomediastinal silhouette size is normal. Mild multilevel thoracolumbar spondylosis. Both upper extremities at the size of the head. LUNGS: There is a 1.4 mm noncalcified pulmonary nodule in the periphery of anterior segment right upper lung lobe. No gross consolidation. No bronchiectasis. No honeycombing. No gross emphysematous changes. Upper airway is patent. MEDIASTINUM: No lymphadenopathy. No aneurysm or dissection, thoracic aorta. No pericardial effusion. No pneumomediastinum. No hemopericardium. No pericardial effusion. The thyroid gland is not enlarged. PLEURA: No pleural effusion. No pneumothorax. No calcified pleural plaques. No hemothorax. AXILLA: Nonspecific prominent axillary lymph nodes. UPPER ABDOMEN: Abundant stool, transverse colon. Nondistended stomach with questionable wall thickening. Scattered diverticula throughout the transverse colon. Less than 5 mm hypodensities throughout the liver parenchyma, too small to be fully characterized. OSSEOUS STRUCTURES: Multilevel spondylosis. There is a superior endplate compression deformity representing 40% volume loss likely old at T9 vertebra, similar findings to a lesser extent at T11 and T12. No gross malalignment. No lytic or last effusions. Degenerative changes in the left glenohumeral joint. No acute rib fracture. Scapula and clavicles are grossly intact. CT/CT chest w IV con IMPRESSION: 1.4 mm noncalcified pulmonary nodule, right upper lung lobe. No acute airspace disease. Nonspecific subcentimeter hepatic hypodensities. Multilevel spondylosis and old superior endplate compression deformity, T9, T11 and T12. Diverticular disease, transverse colon. Fleischner guidelines were followed. Electronically signed by: Saurbah Dejesus MD 05/12/2025 09:53 AM EDT
--- OUTSIDE RECORDS SUMMARY | 2025-05-12 08:55 | XMS_ITS | Encounter Summary ---
Author Organization [facility] Address [address] [address] Phone Care Team Providers Care Biology Specimen Technician Name Role Phone Pcp, Unknown Primary Care Provider Christiana Amador MD Primary Care Provider Caroline magaña Encounter Details Date Type Department Care Team (Late st Contact Info) Description 09/19/2022 Procedure [facility], Ct Scan - [address] [address] Social History Tobacco Use Types Packs/Day Years Used Date Smoking Tobacco: Never Assessed Sex and Gender Information Value Date Recorded Sex Assigned at Not on file Legal Sex Male 7:17 PM EST Gender Identity Not on file Sexual Orientation Not on file documented as of this encounter Functional Status * Calculated C-SSRS Risk Score (Lifetime/Recent) Answer Date of Assessment Author No Risk Indicated 09/19/2022 7:36 PM Usman Trejo, RN * [place] Suicide Severity Rating Scale (Screener/Recent Self-Report) Question Answer Date of Assessment Author 1. Wish to be (Past 1 Month) No 022 7:36 PM Usman Trejo, RN 2. Non-Specific Active Suici [place] Thoughts (Past 1 Month) No 09/19/2022 7:36 PM Dalton Trejo, RN 6. Suicidal Behavior (Lifetime) No 7:36 PM Usman Trejo, RN documented as of this encounter Plan of Treatment Not on file documented as of this encounter Visit Diagnoses Not on filedocumented in this encounter Care Teams Biology Specimen Technician Relationship Specialty Start Date End Date Pcp, Unknown PCP - General 09/19/22 09/26/22 Christiana Campbell MD PCP - General Internal Medicine 09/27/22 documented as of this encounter Additional Source Comments The information contained in this document represents components of the legal health record. It is not the complete legal health record.[facility]
--- OUTSIDE RECORDS SUMMARY | 2025-05-12 08:55 | XMS_ITS | Encounter Summary ---
Author Organization [employer] Address [address] [facility] [address] [place] [address] Care Team Providers Care Shaping Machine Tender Name Role Phone Sandra De Jesus Primary Care Provider [phone] Name, Daniel العراقي Primary Care Provider [phone] Milana Mata DO Primary Care Provider + [phone] Encounter Details Date Type Department Care Team (Late st Contact Info) Description 02/05/2024 Telephone [facility] [address] [place] [address] Sandra De Jesus FNP [address] [place] [address] Social History Tobacco Use Types Packs/Day Years [...] Care Team (Late st Contact Info) Description 07/28/2025 10:00 AM EDT Clinical Support [facility] [address] [place] [address] Stacia Mcfarland, RAN documented as of this encounter Visit Diagnoses Not on filedocumented in this encounter Additional Health Concerns Assessment Noted Time PHQ-9 Depression Total Score: 8 11/15/19 24 9:20 AM EST documented as of this encounter Care Teams Shaping Machine Tender Relationship Specialty Start Date End Date Sandra De Jesus FNP [address] [place] [address] PCP - General Family Medicine 07/06/23 06/23/24 Daniel Krause MD [address] [place] [address] PCP - General Internal Medicine 06/24/24 07/01/24 Milana Mata DO [address] [place] [address] PCP - General Family Medicine 07/02/24 documented as of this encounter
[2025-05-12] MEDS: iohexoL 350 MG/ML 100 ML INFUS..BTL IV (09:36)
[2025-05-13 08:14] LABS: Creatinine POC 0.9 mg/dL (0.5-1.4); GFR POC > 60
== END 2025-05-12 08:39 | disposition home or self-care (01) ==
LOC: HO.CT 08:38
PROVIDERS: PCP Family Medicine; Visit Provider Family Medicine
DX: R93.89 Abnormal findings on diagnostic imaging of other specified body structures (principal); J45.20 Mild intermittent asthma, uncomplicated; R91.1 Solitary pulmonary nodule; G47.33 Obstructive sleep apnea (adult) (pediatric); R07.81 Pleurodynia
CPT/HCPCS: 71260; 82565; 99202; Q9967

== ENCOUNTER → 2025-05-12 08:40 | Outpatient (BNV) | payer MEDICAID, SELFPAY | PROVIDERS: PCP Family Medicine; Visit Provider Radiology Diagnostic Radiology | DX: R91.1 Solitary pulmonary nodule (principal) | CPT/HCPCS: 71260 ==

== ENCOUNTER 2025-05-12 13:15 | Outpatient (AMB) | payer MEDICAID, SELFPAY ==
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
[2025-05-12 13:23] VITALS: BP 90/56; PULSE 84; O2SAT 99; BMI 33.6
== END 2025-05-12 14:01 | disposition home or self-care (01) ==
LOC: HO.HPS 13:16
PROVIDERS: PCP Nurse Practitioner Family; Referring Provider Nurse Practitioner Family; Visit Provider Hospitalist
DX: J45.20 Mild intermittent asthma, uncomplicated (principal); R91.1 Solitary pulmonary nodule; G47.33 Obstructive sleep apnea (adult) (pediatric); T78.40XA Allergy, unspecified, initial encounter; R07.81 Pleurodynia
CPT/HCPCS: 99204

== ENCOUNTER 2025-05-12 13:58 | Outpatient (REF) | payer MEDICAID, SELFPAY | END 2025-05-12 13:59 | disposition home or self-care (01) | LOC: HO.LAB 13:58 | PROVIDERS: Visit Provider Hospitalist | DX: Z13.89 Encounter for screening for other disorder (principal) ==

== ENCOUNTER 2025-07-07 08:58 | Outpatient (REF) | payer MEDICAID, SELFPAY ==
--- OUTSIDE RECORDS SUMMARY | 2024-04-14 06:20 | XMS_ITS ---
Author Organization [facility] Address [address] [place] [address] Care Team Providers Care Geriatric Nurse Name Role Phone Adolfo Vivar, Milana Primary Care Provider Fabiola vailaRaphael Esparza Jr Unavailable [phone] REASON FOR VISIT Patient presents today for an OFFICE VISIT F/U HX OF DIVERTICULITIS Encounters Encounter Location Date Provider Diagnosis [facility] [address] [place] [address] 04/14/2024 Raphael Powell Jr Plan Of Treatment Next Appt Details Provider Name:Raphael yi Jr, 05/17/2026 09:20:00 AM, [address] [place] [address], [address], [place], [address], Progress Notes * FANY ORALDOB:1970 (55 yo M)Acc No.[id number]:04/14/2024 Progress Notes Patient: ORAL VALDOVINOS Provider: Jaye Powell MD :1970 A ge:54 Y S ex:Male Date:04/14/2024 Address:[address] [place] [address] [address], [id number] Pcp:Milana Mata M.D. Subjective: * Chief Complaints: [...] 04/14/2024 Generated for Phil walter/Filippo/Paolo on: 0 07/07/2025 11:09 AM EDT
--- OUTSIDE RECORDS SUMMARY | 2024-07-21 05:40 | XMS_ITS ---
Author Organization [facility] Address [address] [place] [address] Care Team Providers Care Bobbin Washer Name Role Phone Adolfo Vivar, Milana Primary Care Provider Fabiola Raphael Antonio Jr Unavailable REASON FOR VISIT Patient presents today for diverticulitis Encounters Encounter Location Date Provider Diagnosis [facility] [address] [place] [address] 07/21/2024 Raphael Powell Jr Plan Of Treatment Next Appt Details Provider Name:Raphael yi Jr, 05/17/2026 09:20:00 AM, [address], [address], [place], [address], Progress Notes * ORAL SOARESDOB:1970 (55 yo M)Acc No.[id number]:07/21/2024 Progress Notes Patient: ORAL VALDOVINOS Provider: Jaye Powell MD :1970 A ge:54 Y S ex:Male Date:07/21/2024 Address:[address] [place] [address] [address], [place], [place] Pcp:Milana Mata M.D. Subjective: * Chief Complaints: [...] 07/21/2024 Generated for Phil walter/Filippo/Paolo on: 0 07/07/2025 11:09 AM EDT
--- OUTSIDE RECORDS SUMMARY | 2025-07-06 19:40 | XMS_ITS | Encounter Summary ---
Author Organization [employer] Address [address] [facility] [address] [place] [address] Care Team Providers Care Property Management Assistant Name Role Phone AdolfoMilana Primary Care Provider + [phone] Encounter Details Date Type Department Care Team ([facility] st Contact Info) Description 07/06/2025 7:40 PM EDT Office Visit [facility] [address] [place] [address] Willy Rock MD [address] [place] [address] Mid back pain on right side (Primary [...] Chronic Kidney Disease: Estimated GFR < 60 mL/min/1.18u2Qvlkpo Kidney Disease: Estimated GFR < 15 mL/min/1.73m2 Diagnoses and all orders for this visit: Mid back pain on right side (Primary) - XR Chest 2 Views; Future - CBC auto differential; Future - Comprehensive Metabolic Panel; Future - Urinalysis Complete; Future Patient presents to [facility] with right-sided flank pain, not reproducible with [...] Description 07/28/2025 10:00 AM EDT Clinical Support [facility] [address] [place] [phone] Stacia Mcfarland, RN Scheduled Orders Name Type Priority Associated Diagnoses Orde r Schedule CBC auto differential Lab Routine Mid back pain on right side Expected: 07/06/2025 (Approximate), Expires: 07/06/2026 Comprehensive Metabolic Panel Lab Routine Mid back pain on right side Expected: 07/06/2025 (Approximate), Expires: 07/06/2026 Urinalysis Complete Lab Routine Mid back pain on right side Expected: 07/06/2025, Expires: 07/06/2026 documented as of this encounter Procedures Procedure Name Priority Date/Time Associated Diagnosis Comments XR CHEST 2 VIEWS Routine 07/07/2025 9:30 AM EDT Mid back pain on right side documented in this encounter Results * XR Chest 2 Views (07/07/2025 9:30 AM EDT) Anatomical Region Laterality Modality Chest Radiographic Marybel ging 07/07/2025 9:30 AM EDT Narrative 07/07/2025 9:39 AM EDT [address] [address] XRay Report Signed Patient: Reynaldo Osuna MR#: [id number] : 1970 Acct:[id number] Age/Sex: 55 / M ADM Date: 07/07/25 Loc: HO.HHCX Attending Dr: Chance Ortiz MD Ordering Physician: Willy Rock MD Date of Service: 07/07/25 Procedure(s): XR chest 2V Accession Number(s): [id number] cc: Milana Mata DO; Willy Rock MD [...] in OV> 07/07/25934 DD/ 9 TD/TT: 07/07/25930 Shark Biologist: Procedure Note Donotuseinterpreter, Image - 07/07/[address] [place] [address] XRay Report Signed Patient: Patrick Osuna#: [id number] : 1970Acct:[id number] Age/Sex: 55 / MADM Date: 07/07/25 Loc: HO.HHCX Attending Dr: Chance Ortiz MD Ordering Physician: Willy Rock MD Date of Service: 07/07/25 Procedure(s): XR chest 2V Accession Number(s): [id number] cc: Milana Mata DO; Willy Rock MD [...] MD in OV> 07/07/25934 DD/ 9 TD/TT: 07/07/2531 Shark Biologist: Willy Rock MD IMG XR PROCEDURES Edited Result - Final documented in this encounter Visit Diagnoses Diagnosis Mid back pain on right side- Primary documented in this encounter Additional Health Concerns Assessment Noted Time PHQ-9 Depression Total Score: 0 01/01/20 25 10:51 AM EDT documented as of this encounter Care Teams Property Management Assistant Relationship Specialty Start Date End Date Milana Mata DO [address] [place] [phone] PCP - General Family Medicine 07/02/24 documented as of this encounter
--- NOTE | ~2025-07-07 | XR_ITS ---
EXAMINATION: XR CHEST CLINICAL INFORMATION: Patient with right-sided posterior chest pain for 9 days COMPARISON: 02/28/2025. TECHNIQUE: 2 views of the chest were obtained. FINDINGS: The cardiac, hilar, and mediastinal contours are normal. The lungs are clear bilaterally. There is no pneumothorax or pleural effusion. There is no focal osseous or soft tissue abnormality. XR/XR chest 2V IMPRESSION: Normal chest. Electronically signed by: Esequiel Harris MD 07/07/2025 09:35 AM EDT
--- OUTSIDE RECORDS SUMMARY | 2025-07-07 11:09 | XMS_ITS | Encounter Summary ---
Author Organization [employer] Address [address] [facility] [address] [facility] [address] [place] [address] Care Team Providers Care Concrete Block Molder Name Role Phone Milana Mtaa DO Primary Care Provider + [phone] Encounter Details Date Type Department Care Team ([facility] st Contact Info) Description 05/20/2025 Orders Only [facility] [address] [place] [address] Milana Mata DO [address] [place] [address] Social History Tobacco Use Types Packs/Day Years [...] Description 07/28/2025 10:00 AM EDT Clinical Support [facility] [address] [place] [address] Stacia Mcfarland RN documented as of this encounter Visit Diagnoses Not on filedocumented in this encounter Additional Health Concerns Assessment Noted Time PHQ-9 Depression Total Score: 0 01/01/20 25 10:51 AM EDT documented as of this encounter Care Teams Concrete Block Molder Relationship Specialty Start Date End Date Milana Mata DO [address] [place] [phone] PCP - General Family Medicine 07/02/24 documented as of this encounter
--- OUTSIDE RECORDS SUMMARY | 2025-07-07 11:09 | XMS_ITS | Encounter Summary ---
Author Organization [employer] Address [address] [facility] [address] [place] [address] Care Team Providers Care Director Hospice Operations Name Role Phone Sandra De Jesus Primary Care Provider + Daniel Krause MD Primary Care Provider [phone] Milana Mata DO Primary Care Provider [phone] Reason for Visit * Reason Comments Med Refill Encounter Details Date Type Department Care Team (Late st Contact Info) Description 09/30/2023 Refill [facility] [address] [place] [address] Campbell Salguero AGNP Social History Tobacco Use [...] Description 07/28/2025 10:00 AM EDT Clinical Support [facility] [address] [place] [address] Stacia Mcfarland RN documented as of this encounter Visit Diagnoses Not on filedocumented in this encounter Additional Health Concerns Assessment Noted Time PHQ-9 Depression Total Score: 12 023 2:23 PM EDT documented as of this encounter Care Teams Director Hospice Operations Relationship Specialty Start Date End Date Sandra De Jesus FNP [address] [place] [address] PCP - General Family Medicine 07/06/23 06/23/24 Daniel Krause MD [address] [place] [phone] PCP - General Internal Medicine 06/24/24 07/01/24 Milana Mata DO [address] [place] [phone] PCP - General Family Medicine 07/02/24 documented as of this encounter
--- OUTSIDE RECORDS SUMMARY | 2025-07-07 11:09 | XMS_ITS | Encounter Summary ---
Author Organization [facility] Address [address] [address] Phone Care Team Providers Care Wing Coverer Name Role Phone Pcp, Unknown Primary Care Provider Christiana Amador MD Primary Care Provider Caroline magaña Encounter Details Date Type Department Care Team (Late st Contact Info) Description 09/19/2022 Procedure Pass [facility], Ct Scan - [address] [address] Social History Tobacco Use Types Packs/Day Years [...] 09/19/2022 7:36 PM Usman Trejo, RN * [place] Suicide Severity Rating Scale (Screener/Recent Self-Report) Question [...] on filedocumented in this encounter Care Teams Wing Coverer Relationship Specialty Start Date End Date Pcp, Unknown PCP - General 09/19/22 09/26/22 Christiana Campbell MD PCP - General Internal Medicine 09/27/22 documented as of this encounter Additional Source Comments The information contained in this document represents components of the legal health record. It is not the complete legal health record.[facility]
--- OUTSIDE RECORDS SUMMARY | 2025-07-07 11:09 | XMS_ITS | Encounter Summary ---
Author Organization [employer] Address [address] [facility] 7t [place] [address] Care Team Providers Care Compliance Professional Name Role Phone Sandra De Jesus Primary Care Provider + Jimi, Daniel العراقي Primary Care Provider [phone] Milana Mata DO Primary Care Provider [phone] Reason for Visit * Reason Comments Med Refill Encounter Details Date Type Department Care Team (Late st Contact Info) Description 10/21/2023 Refill [facility] [address] [place] [address] Sandra De Jesus FNP [address] [place], [place] [phone] Social History Tobacco Use Types Packs/Day Years [...] Description 07/28/2025 10:00 AM EDT Clinical Support [facility] [address] [place] [address] Stacia Mcfarland, RAN documented as of this encounter Visit Diagnoses Not on filedocumented in this encounter Additional Health Concerns Assessment Noted Time PHQ-9 Depression Total Score: 12 023 2:23 PM EDT documented as of this encounter Care Teams Compliance Professional Relationship Specialty Start Date End Date Sandra De Jesus FNP [address] [place] [address] PCP - General Family Medicine 07/06/23 06/23/24 Name, MD Daniel [address] [place] [address] PCP - General Internal Medicine 06/24/24 07/01/24 Milana Mata DO [address] [place] [phone] PCP - General Family Medicine 07/02/24 documented as of this encounter
--- OUTSIDE RECORDS SUMMARY | 2025-07-07 11:09 | XMS_ITS | Encounter Summary ---
Author Organization [employer] Address [address] [facility] [facility] [address] [place] [address] Care Team Providers Care Director Of Integrated Marketing Name Role Phone Sandra De Jesus Primary Care Provider + Jimi, Daniel العراقي Primary Care Provider [phone] - Milana Mata DO Primary Care Provider [phone] Encounter Details Date Type Department Care Team (Late st Contact Info) Description 09/03/2023 Abstract [facility] [address] [place] [address] Iram Resendiz Social History Tobacco Use Types [...] Description 07/28/2025 10:00 AM EDT Clinical Support [facility] [address] [place] [address] Stacia Mcfarland RN documented as of this encounter Visit Diagnoses Not on filedocumented in this encounter Additional Health Concerns Assessment Noted Time PHQ-9 Depression Total Score: 12 023 2:23 PM EDT documented as of this encounter Care Teams Director Of Integrated Marketing Relationship Specialty Start Date End Date Sandra De Jesus FNP [address] [place] [address] PCP - General Family Medicine 07/06/23 06/23/24 Daniel Krause MD [address] [place] [phone] PCP - General Internal Medicine 06/24/24 07/01/24 Milana Mata DO [address] [place] [address] PCP - General Family Medicine 07/02/24 documented as of this encounter
--- OUTSIDE RECORDS SUMMARY | 2025-07-07 11:09 | XMS_ITS | Encounter Summary ---
Author Organization [employer] Address [address] [facility] 7t [place] [address] Care Team Providers Care Excel Specialist Name Role Phone Sandra De Jesus Primary Care Provider + Daniel Krause MD Primary Care Provider [phone] Milana Mata DO Primary Care Provider [phone] Reason for Visit * Reason Comments Med Refill Encounter Details Date Type Department Care Team ([facility] st Contact Info) Description 08/01/2023 Refill [facility] [address] [place] [address] Ryan Nation MD [address] [place] [address] Social History Tobacco Use Types Packs/Day Years [...] Description 07/28/2025 10:00 AM EDT Clinical Support [facility] [address] [place] [address] Stacia Mcfarland RN documented as of this encounter Visit Diagnoses Not on filedocumented in this encounter Additional Health Concerns Assessment Noted Time PHQ-9 Depression Total Score: 12 023 2:23 PM EDT documented as of this encounter Care Teams Excel Specialist Relationship Specialty Start Date End Date Sandra De Jesus FNP [address] [place] [address] PCP - General Family Medicine 07/06/23 06/23/24 Daniel Krause MD [address] [place] [address] PCP - General Internal Medicine 06/24/24 07/01/24 Milana Mata DO [address] [place] [address] PCP - General Family Medicine 07/02/24 documented as of this encounter
--- OUTSIDE RECORDS SUMMARY | 2025-07-07 11:09 | XMS_ITS | Encounter Summary ---
Author Organization [employer] Address [address] [facility] 7t [place] [address] Care Team Providers Care Industrial Millwright Name Role Phone Sandra De Jesus Primary Care Provider [phone] Daniel Krause MD Primary Care Provider [phone] Milana Mata DO Primary Care Provider + [phone] Reason for Visit * Reason Onset Date Comments CROSSING W[employer]MAN Reevaluation 05/06/2024 Encounter Details Date Type Department Care Team ([facility] st Contact Info) Description 05/06/2024 Telephone [facility] [address] [place], [place] [phone] Sandra De Jesus FNP [address] [place], [place] [phone] CROSSING [employer] Reevaluation Social History Tobacco Use Types Packs/Day [...] 05/13/2024 9:28 AM EDT Return call from [employer], explain that client want to re-start foster care program, Isidra advised to fax form to [facility], provider will review it and will contact agency if needed anything. Isidra verbally greed and understood. * Telephone Encounter - Alexys Orozco RN - 05/13/2024 9:09 AM EDT T/C x 2 am to [phone] for isidra for below message, No answer. Owner/Photographer sent message to call back on [phone]. T/C to lissett to inform that [facility] is trying to call [employer] / [employer] company for below message , but not able to contact them. LVM to call back on [phone]. Lissett states she is going to call them, Lissett also informed if [employer]OSSING [employer] company / [employer] is missing any sign please fax documents on [phone] to get sign from PCP. Lissett states she is going to call to company. * Telephone Encounter - Lorena Waldrop - 05/12/2024 4:06 PM EDT Tc from pt spouse regarding message below. * Telephone Encounter - Alexys Orozco RN - 05/12/2024 10:05 AM EDT T/C to [phone] for isidra for below message, No answer. Owner/Photographer sent message to call back on [phone]. * Telephone Encounter - Humberto Arauz - 05/12/2024 9:52 AM EDT Tc from [facility] requesting a status on PCP order form. Please see notes. Please contact at [phone] ( ask for isidra ) * Telephone Encounter - Brenda Gifford - 05/09/2024 12:35 PM EDT Tc from pt and Lissett requesting a call back in regards below message. Please contact at [phone] * Telephone Encounter - [place]ys Orozco RN - 05/06/2024 4:21 PM EDT T/C to pt. For below message, pt. States his [employer]OSSING WATCH[employer] company called him and states PCP discontinue the service for CROSSING WATCHMAN services, pt. States he is having upcoming surgery and needs CROSSING WATCHMAN services. RN cannotsee any notes that says [...] Description 07/28/2025 10:00 AM EDT Clinical Support [facility] [address] [place] [address] Stacia Mcfarland RN documented as of this encounter Visit Diagnoses Not on filedocumented in this encounter Additional Health Concerns Assessment Noted Time PHQ-9 Depression Total Score: 8 11/15/19 24 9:20 AM EST documented as of this encounter Care Teams Industrial Millwright Relationship Specialty Start Date End Date Sandra De Jesus FNP [address] [place] [address] PCP - General Family Medicine 07/06/23 06/23/24 Daniel Krause MD [address] [place] [address] PCP - General Internal Medicine 06/24/24 07/01/24 Milana Mata DO [address] [place] [address] PCP - General Family Medicine 07/02/24 documented as of this encounter
--- OUTSIDE RECORDS SUMMARY | 2025-07-07 11:09 | XMS_ITS | Encounter Summary ---
Author Organization [employer] Address [address] [facility] 7t [place] [address] Care Team Providers Care Business Support Coordinator Name Role Phone Adolfo Milana Primary Care Provider + [phone] Reason for Visit * Reason Comments Med Refill Encounter Details Date Type Department Care Team ([facility] st Contact Info) Description 09/04/2024 Refill [facility] [address] [place] [address] Sandra De Jesus FNP [address] [place] [address] Allergic rhinitis due to other allergic trigger, [...] Description 07/28/2025 10:00 AM EDT Clinical Support [facility] [address] [place] [address] Stacia Mcfarland, RAN documented as of this encounter Visit Diagnoses Diagnosis Allergic rhinitis due to other allergic trigger, unspecified seasonality documented in this encounter Additional Health Concerns Assessment Noted Time PHQ-9 Depression Total Score: 8 11/15/19 24 9:20 AM EST documented as of this encounter Care Teams Business Support Coordinator Relationship Specialty Start Date End Date Milana Mata DO [address] [place] [address] PCP - General Family Medicine 07/02/24 documented as of this encounter
--- OUTSIDE RECORDS SUMMARY | 2025-07-07 11:09 | XMS_ITS | Encounter Summary ---
Author Organization [employer] Address [address] [facility] 7t [place] [address] Care Team Providers Care Operator Cavity Pump Name Role Phone Sandra De Jesus Primary Care Provider [phone] Name, Daniel العراقي Primary Care Provider [phone] Milana Mata DO Primary Care Provider + [phone] Encounter Details Date Type Department Care Team (Late st Contact Info) Description 02/05/2024 Telephone [facility] [address] [place] [address] Sandra De Jesus FNP [address] [place] [address] Social History Tobacco Use Types Packs/Day Years [...] Description 07/28/2025 10:00 AM EDT Clinical Support [facility] [address] [place] [address] Stacia Mcfarland, RAN documented as of this encounter Visit Diagnoses Not on filedocumented in this encounter Additional Health Concerns Assessment Noted Time PHQ-9 Depression Total Score: 8 11/15/19 24 9:20 AM EST documented as of this encounter Care Teams Operator Cavity Pump Relationship Specialty Start Date End Date Sandra De Jesus FNP [address] [place] [address] PCP - General Family Medicine 07/06/23 06/23/24 Daniel Krause MD [address] [place] [address] PCP - General Internal Medicine 06/24/24 07/01/24 Milana Mata DO [address] [place] [address] PCP - General Family Medicine 07/02/24 documented as of this encounter
--- OUTSIDE RECORDS SUMMARY | 2025-07-07 11:09 | XMS_ITS | Encounter Summary ---
Author Organization [facility] Address [address] [address] Phone Care Team Providers Care Green Building Design Specialist Name Role Phone Christiana Campbell MD Primary Care Provider Caroline magaña Encounter Details Date Type Department Care Team (Late st Contact Info) Description 02/13/2023 Procedure Pass OR Admitting Dept - [facility] Department [address] [place] [address] Social History Tobacco Use Types Packs/Day Years Used Date Smoking Tobacco: Never Smokeless Tobacco: Never Alcohol Use Standard Drinks/Week Comments Never 0 (1 standard drink = 0.6 oz pur e alcohol) Education Answer Date Recorded Are you interested in more education? Not on mansi e 02/15/2023 Are you concerned about learning? Not on file 02/15/2023 No 02/15/2023 No 02/15/2023 Intimate Partner Violence Answer Date R ecorded Are you denied basic needs s uch as food, clothing, or medical care? No 02/13/2023 In the past 12 months have y ou been in a relationship with a person who hurts, threatens, or tries to control you? No 02/13/2023 Are you denied basic needs s uch as food, clothing, or medical care? No 02/13/2023 In the past 12 months have y ou been in a relationship with a person who hurts, threatens, or tries to control you? No 02/13/2023 Sex and Gender Information Value Date Recorded Sex Assigned at Not on file Legal Sex Male 7:17 PM EST Gender Identity Not on file Sexual Orientation Not on file documented as of this encounter Functional Status * Calculated C-SSRS Risk Score (Lifetime/Recent) Answer Date of Assessment Author No Risk Indicated 02/13/2023 4:19 PM EDT Iliana Olguin RN * [place] Suicide Severity Rating Scale (Screener/Recent Self-Report) Question Answer Date of Assessment Author 1. Wish to be (Past 1 Month) No 023 4:19 PM EDT Iliana Olguin RN 2. Non-Specific Active Suici b[place] Thoughts (Past 1 Month) No 02/13/2023 4:19 PM EDT Melinda Olguin RN 6. Suicidal Behavior (Lifetime) No 3 4:19 PM EDT Iliana Olguin RN documented as of this encounter Plan of Treatment Not on file documented as of this encounter Visit Diagnoses Not on filedocumented in this encounter Care Teams Green Building Design Specialist Relationship Specialty Start Date End Date Christiana Campbell MD PCP - General Internal Medicine 09/27/22 documented as of this encounter Additional Source Comments The information contained in this document represents components of the legal health record. It is not the complete legal health record.[facility]
--- OUTSIDE RECORDS SUMMARY | 2025-07-07 11:09 | XMS_ITS | Encounter Summary ---
Author Organization [employer] Address [address] [facility] 7t [place] [address] Care Team Providers Care Double End Sewer Name Role Phone Sandra De Jesus Primary Care Provider +- Name, Daniel العراقي Primary Care Provider [phone] Milana Mata DO Primary Care Provider [phone] Encounter Details Date Type Department Care Team (Late st Contact Info) Description 05/23/2024 Orders Only [facility] [address] [place] [address] Sandra De Jesus FNP [address] [place] [address] Cervical neck pain with evidence of disc [...] 10:00 AM EDT Clinical Support [facility] MEDICINE [address] [place] [address] Stacia Mcfarland RN documented as of this encounter Visit Diagnoses Diagnosis Cervical neck pain with evidence of disc disease- Primary Other and unspecified disc disorder of cervical region documented in this encounter Additional Health Concerns Assessment Noted Time PHQ-9 Depression Total Score: 8 11/15/19 24 9:20 AM EST documented as of this encounter Care Teams Double End Sewer Relationship Specialty Start Date End Date Sandra De Jesus FNP [address] [place] [address] PCP - General Family Medicine 07/06/23 06/23/24 Daniel Krause MD [address] [place] [address] PCP - General Internal Medicine 06/24/24 07/01/24 Milana Mata DO [address] [place] [address] PCP - General Family Medicine 07/02/24 documented as of this encounter
--- OUTSIDE RECORDS SUMMARY | 2025-07-07 11:10 | XMS_ITS | Encounter Summary ---
Author Organization [employer] Address [address] [facility] [address] 7t [place] [address] Care Team Providers Care Warehouse Forklift Operator Name Role Phone Milana Mata DO Primary Care Provider + [phone] Reason for Visit * Reason Onset Date Comments Nurse Triage 07/06/2025 Encounter Details Date Type Department Care Team ([facility] st Contact Info) Description 07/06/2025 Telephone [facility] [address] [place], [place] [phone] Milana Mata DO [address] [place] [address] Nurse Triage Social History Tobacco Use Types [...] encounter Miscellaneous Notes * Telephone Encounter - Nya Knight RN - 07/06/2025 4:12 PM EDT Called pt. [employer] Data Entry Technician [id number] Jerry. Pt. States that he was getting injections for Diabetesand weight loss. He has lost some weight about 40lbs. Pt. Is looking for an increase in his weight loss injection Trulicity. Pt. States that his blood sugars have been going up x 160-175 over the past week and also his weight has plateau to about 180lbs. Pt is also stating that his upper right back has been hurting and continuing to worsen. Pt. Does not have cough and does not remember straining himself or lifting anything to hurt back. Advised pt. To go to [facility] at 630[facility] as walk in is full already until 630pm. I advised that I will forward request for increase in Trulicity to PCP. Protocol Used: Diabetes - High Blood Sugar (Adult) Protocol-Based Disposition: Home Care Positive Triage Question: * Blood glucose 70 - 240 mg/dL (3.9 -13.3 mmol/L) * All higher-acuity triage questions were negative * Telephone Encounter - Bharath Plasencia - 07/06/2025 4:10 PM EDT Symptom: Back Pain - Not From Injury Outcome: Schedule an appointment to be seen within 3 days Reason: Caller denied all higher acuity questions Mauritian speaking documented in this encounter Plan of Treatment Upcoming Encounters Date Type Department Care Team (Late st Contact Info) Description 07/28/2025 10:00 AM EDT Clinical Support [facility] [address] [place] [address] Stacia Mcfarland RN documented as of this encounter Visit Diagnoses Not on filedocumented in this encounter Additional Health Concerns Assessment Noted Time PHQ-9 Depression Total Score: 0 01/01/20 25 10:51 AM EDT documented as of this encounter Care Teams Warehouse Forklift Operator Relationship Specialty Start Date End Date Milana Mata DO [address] [place] [address] PCP - General Family Medicine 07/02/24 documented as of this encounter
--- OUTSIDE RECORDS SUMMARY | 2025-07-07 11:10 | XMS_ITS | Encounter Summary ---
Author Organization [employer] Address [address] [facility] 7t [place] [address] Care Team Providers Care Saw Handle Assembler Name Role Phone VinMilana dwyer Primary Care Provider [phone] Encounter Details Date Type Department Care Team (Latest Contact Info) Description 07/06/2025 Travel Social History Tobacco Use Types Packs/Day [...] Description 07/28/2025 10:00 AM EDT Clinical Support [facility] [address] [place] [address] Stacia Mcfarland RN documented as of this encounter Visit Diagnoses Not on filedocumented in this encounter Additional Health Concerns Assessment Noted Time PHQ-9 Depression Total Score: 0 01/01/20 25 10:51 AM EDT documented as of this encounter Care Teams Saw Handle Assembler Relationship Specialty Start Date End Date Milana Mata DO [address] [place] [address] PCP - General Family Medicine 07/02/24 documented as of this encounter
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
--- OUTSIDE RECORDS SUMMARY | 2025-07-07 11:10 | XMS_ITS | Encounter Summary ---
Author Organization [employer] Address [address] [facility] [address] [place] [address] Care Team Providers Care Foreign Language Teacher Name Role Phone Milana Mata DO Primary Care Provider + [phone] Reason for Visit * Reason Onset Date Comments Medication Question 07/06/2025 Encounter Details Date Type Department Care Team ([facility] st Contact Info) Description 07/06/2025 Refill [facility] [address] [place], [place] [phone] Milana Mata DO [address] [place] [address] Type 2 diabetes mellitus without complication, without long-term current use of insulin ([facility]) Social History Tobacco Use Types Packs/Day Years [...] Telephone Encounter - Cristine Savage RN - 07/07/2025 9:30 AM EDT 1.5mg dose pended if agreeable, looks like pt. Has been on 0.5mg dose since December * Telephone Encounter - Bharath Plasencia - 07/06/2025 4:08 PM EDT TC from pt requesting dosage increase on Trulicity 0.75 MG/0.5ML solution auto- injector . Pt reports this past week he has been gaining his appetite back documented in this encounter Plan of Treatment Upcoming Encounters Date Type Department Care Team (Late st Contact Info) Description 07/28/2025 10:00 AM EDT Clinical Support [facility]INE [address] [place] [id number] Stacia Mcfarland RN documented as of this encounter Visit Diagnoses Diagnosis Type 2 diabetes mellitus without complication, without long-term current use of insulin ([facility]) documented in this encounter Additional Health Concerns Assessment Noted Time PHQ-9 Depression Total Score: 0 01/01/20 25 10:51 AM EDT documented as of this encounter Care Teams Foreign Language Teacher Relationship Specialty Start Date End Date Milana Mata DO [address] [place] [address] PCP - General Family Medicine 07/02/24 documented as of this encounter
--- OUTSIDE RECORDS SUMMARY | 2025-07-07 11:10 | XMS_ITS | Encounter Summary ---
Author Organization [employer] Address [address] [facility] [address] [place] [address] Care Team Providers Care Industrial Methods Consultant Name Role Phone Campbell Salguero Primary Care Provider Unavail Sandra Mercado Primary Care Provider + Daniel Krause MD Primary Care Provider [phone] Milana Mata DO Primary Care Provider [phone] Encounter Details Date Type Department Care Team ([facility] Contact Info) Description 04/25/2023 Telephone [facility] MEDICINE [address] [place] [address] Earlene Lange LPN Social History Tobacco Use [...] Upcoming Encounters Date Type Department Care Team ([facility] Contact Info) Description 07/28/2025 10:00 AM EDT Clinical Support [facility] MEDICINE [address] [place] [address] Stacia Mcfarland, RAN documented as of this encounter Visit Diagnoses Not on filedocumented in this encounter Additional Health Concerns Assessment Noted Time PHQ-9 Depression Total Score: 12 023 2:23 PM EDT documented as of this encounter Care Teams Industrial Methods Consultant Relationship Specialty Start Date End Date Campbell Salguero AGNP PCP - General Family Medicine 09/25/22 07/05/23 Sandra De Jesus FNP [address] [place] [address] PCP - General Family Medicine 07/06/23 06/23/24 Daniel Krause MD [address] [place] [address] PCP - General Internal Medicine 06/24/24 07/01/24 Milana Mata DO [address] [place] [address] PCP - General Family Medicine 07/02/24 documented as of this encounter
--- OUTSIDE RECORDS SUMMARY | 2025-07-07 11:10 | XMS_ITS | Encounter Summary ---
Author Organization [employer] Address [address] [place] [address] [address] [place] [address] Care Team Providers Care Aircraft Instrument Engineer Name Role Phone Campbell Salguero Primary Care Provider Unavail Sandra Mercado Primary Care Provider [phone] NameDaniel MD Primary Care Provider [phone] Milana Mata DO Primary Care Provider [phone] Reason for Visit * Reason Onset Date Comments Nurse Triage 05/28/2023 Encounter Details Date Type Department Care Team (Late st Contact Info) Description 05/28/2023 Telephone [facility] MEDICINE [address] [place] [address] Campbell Salguero AGNP Nurse Triage Social History [...] 9:23 AM EDT Call to Pt with [place] Transfer Engineer ID [id number] Pt is given message from EVIN Salguero, [...] EDT Triage call Pt gives permission for [employer] OFFICE INSTRUCTOR, Lissett, to speak for Pt. PT was [...] accepted this outcome Please contact lissett at [phone] documented in this encounter Plan of Treatment Upcoming Encounters Date Type Department Care Team (Late st Contact Info) Description 07/28/2025 10:00 AM EDT Clinical Support [facility] [address] [place] [address] Stacia Mcfarland, RN documented as of this encounter Visit Diagnoses Diagnosis Benign prostatic hyperplasia with incomplete bladder emptying- Primary documented in this encounter Additional Health Concerns Assessment Noted Time PHQ-9 Depression Total Score: 12 023 2:23 PM EDT documented as of this encounter Care Teams Aircraft Instrument Engineer Relationship Specialty Start Date End Date Campbell Salguero AGNP PCP - General Family Medicine 09/25/22 07/05/23 Sandra De Jesus FNP [address] [place] [address] PCP - General Family Medicine 07/06/23 06/23/24 Daniel Krause MD [address] [place] [address] PCP - General Internal Medicine 06/24/24 07/01/24 Milana Mata DO [address] [place] [address] PCP - General Family Medicine 07/02/24 documented as of this encounter
--- OUTSIDE RECORDS SUMMARY | 2025-07-07 11:10 | XMS_ITS | Clinical Summary ---
Author Organization [employer] Address [address] [facility] [address] [place] [address] Care Team Providers Care Nickel Operator Name Role Phone AdolfoMilana Primary Care Provider [phone] Allergies Active Allergy Reactions Criticality Noted Date Comments [place]-Containing Products Anaphylaxis High 04/20/2023 Fruit Extracts 10/10/2023 Pt states he is allergic to any fruit that has seeds Penicillins Rash High 10/12/2010 [place] Oil 08/21/2024 Medications OXcarbazepine (Trileptal) 300 MG [...] or buttocks. 2 each 1 023 Active hydrocortisone (Anusol-HC) 25 MG suppository Insert [...] day. 90 capsule 3 024 2024 Active losartan-hydroCHL OROthiazide (Hyzaar) 100-25 MG tablet TAKE 1 TABLET BY MOUTH EVERY MORNING 90 tablet 3 Active cholecalciferol VITAMIN D (Vitamin D-3) 50 MCG (1999 UT) tabletIndications :Anxiety state TAKE 1 TABLET BY MOUTH EVERY MORNING 90 tablet 3 Active sucralfate (Carafate) 1 GM/10ML suspension SWISH AND SWALLOW 10 ML FOUR TIMES DAILY NEEDED FOR HEARTBURN USE AFTER FOOD OR DRINK Active fluticasone (Flonase) 50 MCG/ACT nasal spray Administer 2 sprays into each nostril Once per day. 48 g 3 Active lidocaine (Lidoderm) 5 % patch Apply [...] blood sugar 2 times daily 100 each Active Blood Glucose Monitoring Suppl (FreeStyle [place] Lite) w/Device kit Use to test blood sugar 2 times daily 1 kit Active Polyethyl Glycol-Propyl Glycol (Lubricant Eye Drops) 0.4-0.3 % solutionIndicatio ns:Pruritus of both eyes Administer 1 drop into both eyes if needed in the morning, at noon, and at bedtime (irritation). 5 mL Active amLODIPine (Norvasc) 5 MG tablet TAKE 1 TABLET BY MOUTH EVERY MORNING 90 tablet 3 Active Ventolin HFA 108 (90 Base) MCG/ACT inhaler INHALE 2 PUFFS BY MOUTH EVERY 4 HOURS NEEDED FOR WHEEZING OR SHORTNESS OF BREATH 18 g 1 025 Active acetaminophen (Tylenol 8 Hour) 650 MG ER tablet TAKE 1 TABLET BY MOUTH EVERY 8 HOURS NEEDED FOR MILD PAIN DO NOT BREAK, CRUSH, DISSOLVE OR CHEW 60 tablet 1 025 Active apixaban (Eliquis) 5 MG tablet TAKE 1 TABLET BY MOUTH TWICE DAILY IN THE MORNING AND IN THE EVENING 60 tablet 5 025 Active Eye Itch Relief 0.035 % solution INSTILL 1 DROP AFFECTED EYE(S) TWICE DAILY IN THE MORNING AND AT BEDTIME NEEDED FOR ALLERGIES OR FOR ITCHING 10 mL 1 025 Active Trulicity 0.75 MG/0.5ML solution auto-injector INJECT ONE PEN (=0.75MG) SUBCUTANEOUSLY ONCE A WEEK DIRECTED 2 mL 3 Active Diclofenac Sodium 1 % gel APPLY 2 GRAMS TOPICALLY TO AFFECTED AREA(S) 4 TIMES A DAY IN THE MORNING, AT NOON, IN THE EVENING, AND AT BEDTIME NEEDED FOR PAIN 200 g 2 025 Active naloxone (Narcan) 4 mg/0.1 mL nasal sprayIndications: Chronic neck and back pain Administer 1 spray (4 mg) into affected nostril(s) if needed for opioid reversal. May repeat every 2-3 minutes if needed, alternating nostrils, until medical assistance becomes available. 2 each 3 025 2025 Active baclofen (Lioresal) 10 MG tablet TAKE 1 TABLET BY MOUTH THREE TIMES DAILY IN THE MORNING, AT NOON, AND AT BEDTIME NEEDED FOR MUSCLE SPASMS 60 tablet Active rosuvastatin (Crestor) 40 MG tabletIndications :Hyperlipidemia, unspecified hyperlipidemia type TAKE 1 TABLET BY MOUTH AT BEDTIME 90 tablet 1 025 Active traMADol (Ultram) 50 MG tabletIndications :Chronic neck and back pain TAKE 1 TABLET BY MOUTH EVERY TWELVE HOURS NEEDED FOR SEVERE PAIN FOR UP TO 28 DAYS 56 tablet 025 2024 Active cetirizine (ZyrTEC) 10 MG tabletIndications :Seasonal allergic rhinitis, unspecified trigger TAKE 1 TABLET BY MOUTH EVERY MORNING 90 tablet 1 025 Active cetirizine (ZyrTEC) 10 MG tabletIndications :Seasonal allergic rhinitis, unspecified trigger TAKE 1 TABLET BY MOUTH ONCE DAILY 90 tablet 1 025 2024 Discontinued traMADol (Ultram) 50 MG tabletIndications :Chronic neck and back pain Take 1 tablet (50 mg) by mouth every 12 (twelve) hours if needed for severe pain for up to 28 days. Do not start before May 13, 2025. 56 tablet 025 2024 Discontinued Active Problems Problem Noted Date Diagnosed Date Long-term current use of opiate analgesic 2024 Palpitations 02/24/2025 Assessment & Plan (02/24/2025 11:41 [...] K/uL 9.28 RBC 4.23 - 5.82 M/uL 4.07 Low HGB 13.4 - 17.5 g/dL 10.8 Low HCT 37.0 - 51.0 % 33.5 Low Ref Range & Units 2 wk ago WBC 4.00 - 11.00 K/uL 14.96 High RBC 4.23 - 5.82 M/uL 4.25 HGB 13.4 - 17.5 g/dL 11.1 Low HCT 37.0 - 51.0 % 34.5 Low S/P laparoscopic-assisted sigmoidectomy 02/21/20 23 Assessment & [...] there were small polyps. Eye exam: Saw accreditation coordinator 8 months ago, [facility]. Does not wear glasses. Dental home: upcoming appointment next month at [facility]. Allergies 04/20/2023 07/24/2024 Assessment & Plan (04/20/2023 [...] was prudent to send him to an global professional to get a comprehensive and accurate list [...] 16mm the pericolonic phlegmon/developing abscess. No pneumoperitoneum. Patient admitted on ceftriaxone and metronidazole day [...] IV fluids and opiates for pain control. Epilepsy 09/20/2022 07/24/2024 Overview (03/01/2023): Last Assessment & Plan: Seizure-free regimen of Trileptal. Calcaneal spur of both feet 04/20/2022 07/24/2024 Low back pain 05/14/2012 07/24/2024 Hypercoagulable state 10/22/19592023 Hypertriglyceridemia 10/22/1959 024 Encounters Date Type Department Care Team Description 07/06/2025 7:40 PM EDT Office Visit [facility] [address] [place] [address] Willy Rock MD Mid back pain on right side (Primary Dx) 07/06/2025 Travel 07/06/2025 Telephone [facility] [address] [facility] [place] [address] Milana Mata DO Nurse Triage 07/06/2025 Refill [facility] [address] [facility] [place] [address] Milana Mata DO Type 2 diabetes mellitus without complication, without long-term current use of insulin ([facility]) 06/25/2025 Refill [facility] [address] [facility] [place] [place] [address] Milana Mata DO Seasonal allergic rhinitis, unspecified trigger 06/04/2025 Refill [facility] [address] [facility] [place] [address] Milana Mata DO Chronic neck and back pain 06/02/2025 Refill [facility] [address] [facility] [place] [address] Milana Mata DO Hyperlipidemia, unspecified hyperlipidemia type 05/27/2025 Refill [facility] [address] [facility] [place] [place] [address] Milana Mata DO 05/20/2025 Orders Only [facility] [address] [place] [address] Milana Mata DO 05/12/2025 Orders Only [facility] [address] [place] [address] Milana Mata DO 05/11/2025 11:00 AM EDT Office Visit [facility] [address] [place] [phone] Justyn Mondragon MD Acute intractable headache, unspecified headache type (Primary Dx); Neck pain; Right facial numbness 05/11/2025 9:00 AM EDT Clinical Support [facility] [address] [place] [address] Stacia Mcfarland, RN Long-term current use of opiate analgesic (Primary Dx) 05/11/2025 Refill [facility] [address] [place] [address] Stacia Mcfarland, body builder apprentice neck and back pain 05/11/2025 Travel 05/10/2025 Refill [facility] [address] [place] [address] Milana Mata DO 05/01/2025 Telephone [facility] [address] [place] [phone] Milana Mata DO Results 04/30/2025 Telephone [facility] [address] [place] [address] Stacia Mcfarland, RN MRI SPECIAL PROCEDURES TECHNOLOGIST Tier level 04/23/2025 Refill [facility] [address] [place] [address] Milana Mata DO 04/17/2025 Refill [facility] [address] [place] [address] Milana Mata DO 04/07/2025 Refill [facility] [address] [place] [address] Milana Mata DO Chronic neck and back pain from Last 3 Months Immunizations Immunization Administration [...] 18 07/06/2025 6:59 PM EDT Oxygen Saturation 96% 05/11/2025 11:25 AM EDT Inhaled Oxygen Concentration - - Weight 88.9 kg (196 lb) 07/06/2025 6:59 PM EDT Height 165.1 cm (5' 5 ) 07/06/2025 6:59 PM EDT Body Mass Index 32.62 07/06/2025 6:59 PM EDT Plan of Treatment Upcoming Encounters Date Type Department Care Team (Late st Contact Info) Description 07/28/2025 10:00 AM EDT Clinical Support [facility] [address] [place] [phone] Stacia Mcfarland, RN Health Maintenance Due Date Last Done Comments CT Colonography 1969 Dental Oral Exam 1969 Dental Prophylaxis 1969 Dental X-Ray: Full Mouth 1969 FIT DNA/Cologuard 1969 Sigmoidoscopy 1969 Diabetes: Foot Exam 1979 FIT 11/15/2024 11/15/2023 FOBT 11/15/2024 11/15/2023 SDOH Screening 04/25/2025 04/25/2024 Influenza Vaccine (#1) 2025 , 10/10/2023, 09/29/2022, Additional history exists Diabetes: Hemoglobin A1C 07/08/2025 025, 12/31/2024, 07/28/2024, Additional history exists Diabetes: Urine Protein Screening 07/28/2025 07/28/2024, 09/20/2021 Lipid Panel 07/28/2025 07/28/2024, 06, 08/30/2022, Additional history exists Dental X-Ray: Bitewings 08/22/2025 08/21/2024 Eye Exam 11/26/2025 11/26/2023, 02/2024, 11/26/2023, Additional history exists Alcohol/Substance Use Screening 12/31/2025 12/31/2024 Depression Screening 12/31/2025 12/31/2024, 01/01/20 25 Disability Screening 03/20/2026 03/20/2025 Tobacco Screening 05/11/2026 05/11/2025 Colonoscopy 04/19/2028 04/19/2023 Colorectal Cancer Screening 04/19/2028 DTaP/Tdap/Td Vaccines (4 - Td or Tdap) 12/01/2032 12/01/2022, 09/09/2012, 01/06/2011 RSV Patients and Patients Aged 60 years or older (1 - 1-dose 75+ series) 02/05/2044 Zoster Vaccines Completed 12/01/2022, 09/29/2022 Pneumococcal Vaccine: 50+ Years Completed 10/10/2023 COVID-19 Vaccine Completed 07/24/2024, , 02/02/2021, Additional history exists HIV Screening Completed 07/28/2024, [...] EDT Mid back pain on right side POCT CREATININE GFR Routine 05/12/2025 9 :[address] CHEST W CONTRAST Urgent 05/12/2025 9 :09 AM EDT Abnormal chest x-ray POCT ABILIO-14 URINE DRUG SCREEN Routine 05/11/2025 9:24 AM EDT Long-term current use of opiate analgesic POCT GLYCATED HEMOGLOBIN, TOTAL Routine 01/05/2025 12:26 PM EDT New onset type 2 diabetes mellitus (CMS/HCC) BITEWING - SINGLE RADIOGRAPHIC IMAGE Routine 08/21/2024 [...] Maintenance Results * XR Chest 2 Views (07/07/2025 9:30 AM EDT) Anatomical Region Laterality Modality Chest Radiographic Marybel ging 07/07/2025 9:30 AM EDT Narrative 07/07/2025 9:39 [place] [address] XRay Report Signed Patient: Reynaldo Osuna MR#: [id number] : 1970 Acct:[id number] Age/Sex: 55 / M ADM Date: 07/07/25 Loc: HO.HHCX Attending Dr: Chance Ortiz MD Ordering Physician: Willy Rock MD Date of Service: 07/07/25 Procedure(s): XR chest 2V Accession Number(s): [id number] cc: Milana Mata DO; Willy Rock MD [...] Esequiel Harris MD 07/07/2025 09:35 AM EDT RP Dictated By: Esequiel Harris MD Signed By: <Electronically signed by Esequiel Harris MD in OV> 07/07/25934 DD/ 9 TD/TT: 07/07/25930 Global Recruiter: Procedure Note Donotuseinterpreter, Image - 07/07/2025 [place] [address] XRay Report Signed Patient: Patrick Osuna#: [id number] : 1970Acct:[id number] Age/Sex: 55 / MADM Date: 07/07/25 Loc: HO.HHCX Attending Dr: Chance Ortiz MD Ordering Physician: Willy Rock MD Date of Service: 07/07/25 Procedure(s): XR chest 2V Accession Number(s): [id number] cc: Milana Mata DO; Willy Rock MD [...] Esequiel Harris MD 07/07/2025 09:35 AM EDT RP Dictated By: Esequiel Harris MD Signed By: <Electronically signed by Esequiel Harris MD in OV> 07/07/25934 DD/ 9 TD/TT: 07/07/25930 Global Recruiter: us Willy Rock MD IMG XR PROCEDURES Edited Result - Final * POCT Creatinine GFR (05/12/2025 9:10 AM EDT) POCT Creatinine 0.9 0.5 - 1.4 mg/dL [facility] GFR POC >60 [facility] Comment:Chronic Kidney Disea se: Estimated GFR < 60 mL/min/1.35d1Ykijuy Kidney Disease: Estimated GFR < 15 mL/min/1.73m2 05/12/2025 9:10 AM EDT 05/13/2025 8:13 AM EDT Narrative [facility] - 05/13/2025 8:14 AM EDT [id number] us Milana Mata DO LAB POINT OF CARE TEST DOCKE D DEVICE ORDERABLES Final Result Performing Organization Address City/State/RUST Co de Phone Number [facility] [address] [place] [address] [phone] * CT Chest w/ Contrast (05/12/2025 9:09 AM EDT) Anatomical Region Laterality Modality Body, Chest Computed Tomogra phy 05/12/2025 9:09 AM EDT Narrative 05/12/2025 9:56 AM EDT [place] [address] CT Scan Report Signed Patient: Reynaldo Osuna MR#: [id number] : 1970 Acct:[id number] Age/Sex: 55 / M ADM Date: 05/12/25 Loc: HO.CT Attending Dr: Milana Mata DO Ordering Physician: Milana Mata DO Date of Service: 05/12/25 Procedure(s): CT chest w IV con Accession Number(s): [id number] cc: Milana Mata Report Number: [id number]: Total DLP = 197.00 mGy-cm EXAMINATION: CT CHEST WITH CONTRAST CLINICAL INFORMATION: Questionable nodular density, right lung on a chest x-ray. COMPARISON: CT chest PE protocol dated June 03, 2023. Correlated to recent x-ray dated February 28, 2025. TECHNIQUE: Multidetector volumetric CT imaging of the chest was obtained after the administration of 65 mL of Omnipaque 350 intravenous contrast without immediate adverse reactions. Axial MIP volume rendering provided. Sagittal and coronal reformatted images were obtained. This CT examination was performed using dose optimization techniques as appropriate, variously including the following: *Automated exposure control *Adjustment of mA and/or kV according to patient size (this includes techniques or standardized protocols for targeted exams where dose is matched to indication/reason for exam; i.e. extremities or head) *Use of iterative reconstruction technique DLP: 197 mGy centimeter. FINDINGS: SHOE POLISHER: No hyperinflation. Cardiomediastinal silhouette size is normal. Mild multilevel thoracolumbar spondylosis. Both upper extremities at the size of the head. LUNGS: There is a 1.4 mm noncalcified pulmonary nodule in the periphery of anterior segment right upper lung lobe. No gross consolidation. No bronchiectasis. No honeycombing. No gross emphysematous changes. Upper airway is patent. MEDIASTINUM: No lymphadenopathy. No aneurysm or dissection, thoracic aorta. No pericardial effusion. No pneumomediastinum. No hemopericardium. No pericardial effusion. The thyroid gland is not enlarged. PLEURA: No pleural effusion. No pneumothorax. No calcified pleural plaques. No hemothorax. AXILLA: Nonspecific prominent axillary lymph nodes. UPPER ABDOMEN: Abundant stool, transverse colon. Nondistended stomach with questionable wall thickening. Scattered diverticula throughout the transverse colon. Less than 5 mm hypodensities throughout the liver parenchyma, too small to be fully characterized. OSSEOUS STRUCTURES: Multilevel spondylosis. There is a superior endplate compression deformity representing 40% volume loss likely old at T9 vertebra, similar findings to a lesser extent at T11 and T12. No gross malalignment. No lytic or last effusions. Degenerative changes in the left glenohumeral joint. No acute rib fracture. Scapula and clavicles are grossly intact. CT/CT chest w IV con IMPRESSION: 1.4 mm noncalcified pulmonary nodule, right upper lung lobe. No acute airspace disease. Nonspecific subcentimeter hepatic hypodensities. Multilevel spondylosis and old superior endplate compression deformity, T9, T11 and T12. Diverticular disease, transverse colon. Fleischner guidelines were followed. Electronically signed by: Saurabh Dejesus MD 05/12/2025 09:53 AM EDT RP Dictated By: Saurabh Pena MD Signed By: <Electronically signed by Saurabh Jiménez MD in OV> 05/12/25 0953 DD/ 8 TD/TT: 05/12/2535 Global Recruiter: Procedure Note Donotuseinterpreter, Image - 05/12/[address] [place] [address] [address] Scan Report Signed Patient: Patrick Osuna#: [id number] : 1970Acct:[id number] Age/Sex: 55 / MADM Date: 05/12/25 Loc: HO.CT Attending Dr: Milana Mata DO Ordering Physician: Milana Mata DO Date of Service: 05/12/25 Procedure(s): CT chest w IV con Accession Number(s): [id number] cc: Milana Mata DO Report Number: [id number]: Total DLP = 197.00 mGy-cm EXAMINATION: CT CHEST WITH CONTRAST CLINICAL INFORMATION: Questionable nodular density, right lung on a chest x-ray. COMPARISON: CT chest PE protocol dated June 03, 2023. Correlated to recent x-ray dated February 28, 2025. TECHNIQUE: Multidetector volumetric CT imaging of the chest was obtained after the administration of 65 mL of Omnipaque 350 intravenous contrast without immediate adverse reactions. Axial MIP volume rendering provided. Sagittal and coronal reformatted images were obtained. This CT examination was performed using dose optimization techniques as appropriate, variously including the following: *Automated exposure control *Adjustment of mA and/or kV according to patient size (this includes techniques or standardized protocols for targeted exams where dose is matched to indication/reason for exam; i.e. extremities or head) *Use of iterative reconstruction technique DLP: 197 mGy centimeter. FINDINGS: SHOE POLISHER: No hyperinflation. Cardiomediastinal silhouette size is normal. Mild multilevel thoracolumbar spondylosis. Both upper extremities at the size of the head. LUNGS: There is a 1.4 mm noncalcified pulmonary nodule in the periphery of anterior segment right upper lung lobe. No gross consolidation. No bronchiectasis. No honeycombing. No gross emphysematous changes. Upper airway is patent. MEDIASTINUM: No lymphadenopathy. No aneurysm or dissection, thoracic aorta. No pericardial effusion. No pneumomediastinum. No hemopericardium. No pericardial effusion. The thyroid gland is not enlarged. PLEURA: No pleural effusion. No pneumothorax. No calcified pleural plaques. No hemothorax. AXILLA: Nonspecific prominent axillary lymph nodes. UPPER ABDOMEN: Abundant stool, transverse colon. Nondistended stomach with questionable wall thickening. Scattered diverticula throughout the transverse colon. Less than 5 mm hypodensities throughout the liver parenchyma, too small to be fully characterized. OSSEOUS STRUCTURES: Multilevel spondylosis. There is a superior endplate compression deformity representing 40% volume loss likely old at T9 vertebra, similar findings to a lesser extent at T11 and T12. No gross malalignment. No lytic or last effusions. Degenerative changes in the left glenohumeral joint. No acute rib fracture. Scapula and clavicles are grossly intact. CT/CT chest w IV con IMPRESSION: 1.4 mm noncalcified pulmonary nodule, right upper lung lobe. No acute airspace disease. Nonspecific subcentimeter hepatic hypodensities. Multilevel spondylosis and old superior endplate compression deformity, T9, T11 and T12. Diverticular disease, transverse colon. Fleischner guidelines were followed. Electronically signed by: Saurabh Dejesus MD 05/12/2025 09:53 AM EDT RP Dictated By: Saurabh Pena MD Signed By: <Electronically signed by Saurabh Jiménez MDin OV> 05/12/2553 DD/ TD/TT: 05/12/25 0935 Global Recruiter: Milana Mata DO IMG CT PROCEDURES Final Resu lt * POCT ABILIO-14 Urine Drug Screen (05/11/2025 9:24 AM EDT) Pathologist [facility] THC Negative Negative Cocaine Screen, Urine Negative Negative Opiate Screen, Urine Negative Negative Methamphetamine Screen Urine Negative Negative Amphetamine Screen, Urine Negative Negative Benzodiazepines Screen, Urine Negative Negative Barbiturate Screen, Urine Negative Negative Methadone Screen, Urine Negative Negative Buprenophine Screen, Urine Negative Negative TCA, Urine Negative Negative MDMA Urine Negative Negative ng/mL Oxycodone Screen, Urine Negative Negative Phencyclidine (PCP), Urine Negative Negative Propoxyphene, Urine Negative Negative Fentanyl, Urine Negative Negative Urine Urine specimen obtained by clean catch procedure / Unknown 05/11/2025 9:24 AM EDT Narrative Stacia Mcfarland RN - 05/11/2025 9:24 AM EDT UTOX cup Lot#[id number] Exp. 07/28/26 Internal Pass Control Milana Mata DO POINT OF CARE TEST ENTER/MITZI T ORDERABLES Final Result * (ABNORMAL) POCT HGB A1C (01/05/2025 12:26 PM EDT) Pathologist [facility] Hemoglobin A1C 6.4(A) 4.0 - 6.0 % QC Media Lot # [id number] Lot# Expiration Date Blood 01/05/2025 12:2 6 PM EDT Milana Mata DO POINT OF CARE TEST ENTER/MITZI T ORDERABLES Final Result * Hepatitis C Antibody with Reflex to HCV, RNA, Quantitative, Real-Time PCR (07/28/2024 10:21 AM EDT) Pathologist [facility] Hepatitis C Antibody Nonreactive Nonreactive [facility] Comment:Antibodies to HCV no t detected; does not exclude early acuteHCV infection. Blood Venous blood specimen / Unknown 07/28/2024 10:21 AM EDT 07/28/2024 11:15 AM EDT Milana Mata DO LAB BLOOD ORDERABLES Final R esult Performing Organization Address City/[facility]/ZIP Co de Phone Number [facility] [address] [place] [address] [phone] * HIV-1/2 Antigen and Antibodies, Fourth Generation, with Reflexes (07/28/2024 10:21 AM EDT) HIV AB/AG Nonreactive Nonreactive [facility] Comment:HIV-1 p24 Ag and/or HIV-1/HIV-2 Ab not detected.A test result that is nonreactive does not exclude thepossibility of exposure to or infection with HIV-1 and/orHIV-2. Nonreactive results in this assay for individualswith prior exposure to HIV-1 and/or HIV-2 may be due toantigen and antibody levels that are below the limit ofdetection of this assay.The [employer] HIV Ag/Ab Combo assay result andsupplemental assay results should be interpreted inconjunction with the patient's clinical presentation,history and other laboratory results. If the results areinconsistent with clinical evidence, additional testing issuggested to confirm the result. Blood Venous blood specimen / Unknown 07/28/2024 10:21 AM EDT 07/28/2024 11:15 AM EDT Milana Adolfo DO LAB BLOOD ORDERABLES Final R esult Performing Organization Address City/[facility]/ZIP Co de Phone Number [facility] [address] [place] [address] [phone] * (ABNORMAL) Lipid Panel, Standard (07/28/2024 10:21 AM EDT) Triglycerides 116 <150 mg/dL [facility] Comment:Desirable Triglyceri de: less than 150 mg/dLBorderline High Triglyceride 150-199 mg/dLHigh Triglyceride: 200-499 mg/dLVery High Triglyceride: greater than or equal to 5OO mg/dL Cholesterol 127 <200 mg/dL [facility] Comment:Desirable Cholestero l: less than 200 mg/dLBorderline High Cholesterol: 200-239 mg/dLHigh Cholesterol: greater than 239 mg/dL LDL Cholesterol Calculated 67 <100 mg/dL [facility] Comment:Desirable LDL: less than 100 mg/dLNear Optimal/Above Optimal LDL: 110- 129 mg/dLBorderline High LDL: 130-159 mg/dLHigh LDL: 160-189 mg/dLVery High LDL: greater than or equal to 190 mg/dL HDL Cholesterol 37(L) >40 mg/dL [facility] Comment:Desirable HDL: great er than 40 mg/dL Note: This HDL assay may give artificially low results in patients with liver disease. Blood Venous blood specimen / Unknown 07/28/2024 10:21 AM EDT 07/28/2024 10:55 AM EDT Milana Mata DO LAB BLOOD ORDERABLES Final R esult Performing Organization Address [facility]/[place]UST Co de Phone Number [facility] [address] [place] [phone] * Albumin, Random Urine W/Creatinine (07/28/2024 10:13 AM EDT) Creatinine, Urine 102.76 mg/dL [facility] Microalbumin Urine <5.0 mg/L [facility] Microalbum Creatinine Ratio Ur TNP <30 ug/mg cr [facility] Comment:Unable to calculate albumin/creatinine ratio due to lowmicroalbumin or creatinine result. Urine (Urine, Random) 07/28/2024 10:13 AM EDT 07/28/2024 10:55 AM EDT Milana Mata [employer] LAB URINE ORDERABLES Final R esult Performing Organization Address [facility]/ZIP Co de Phone Number [facility] [address] [place] [phone] * (ABNORMAL) Fecal Globin by Immunochemistry (11/15/2023 9:03 AM EST) Fecal Globin By Immunochemistry SEE NOTE(A) [facility] Comment:FECAL GLOBIN BY IMMU NOCHEMISTRY Micro Number: [id number] Test Status: Final Specimen Source: Not given Specimen Quality: Adequate Fecal Globin: DetectedTHIS TEST WAS PERFORMED AT:[facility] [place] [id number] VILLALPANDO MD Stool Rectal contents / Unknown 11/15/2023 9:03 AM EST 11/15/2023 12:27 PM EST Fátima Bridges MANAGER [facility] LAB BODY FLUIDS AND STOOLS ORD ERABLES Final Result [facility] [address] [place] [address] [phone] * Hm Colonoscopy (04/19/2023 2:32 PM EDT) Colonoscopy Normal Normal Comment:Repeat in 5 years Historical Provider HEALTH MAINTENANCE Final Result from Last 3 Months or Most Recently Relevant to Health Maintenance Insurance [facility] ST[place] ADULT Care Teams Nickel Operator Relationship Specialty Start Date End Date Milana Mata DO [address] [place] [address] PCP - General Family Medicine 07/02/24
--- OUTSIDE RECORDS SUMMARY | 2025-07-07 11:10 | XMS_ITS | Encounter Summary ---
Author Organization [employer] Address [address] [place] [address] 7t [place] [address] Care Team Providers Care Bi Application Developer Name Role Phone Jose M Campbell VERONICA Primary Care Provider Unavail Sandra Mercado Primary Care Provider [phone] NameDaniel MD Primary Care Provider [phone] Milana Mata DO Primary Care Provider [phone] Reason for Visit * Reason Comments Med Refill Encounter Details Date Type Department Care Team (Late Contact Info) Description 07/04/2023 Refill [facility] [address] [place] [address] Name, MD Daniel [address] [place] [address] Social History Tobacco Use Types Packs/Day Years [...] Department Care Team (Late Contact Info) Description 07/28/2025 10:00 AM EDT Clinical Support [facility] [address] [place] [address] Stacia Mcfarland, RN documented as of this encounter Visit Diagnoses Not on filedocumented in this encounter Additional Health Concerns Assessment Noted Time PHQ-9 Depression Total Score: 12 023 2:23 PM EDT documented as of this encounter Care Teams Bi Application Developer Relationship Specialty Start Date End Date Campbell Salguero AGNP PCP - General Family Medicine 09/25/22 07/05/23 Sandra De Jesus FNP [address] [place] [address] PCP - General Family Medicine 07/06/23 06/23/24 Daniel Krause MD [address] [place] [address] PCP - General Internal Medicine 06/24/24 07/01/24 Milana Mata DO [address] [place] [address] PCP - General Family Medicine 07/02/24 documented as of this encounter
--- OUTSIDE RECORDS SUMMARY | 2025-07-07 11:10 | XMS_ITS | Clinical Summary ---
Author Organization [facility] Address [address] [place] [address] Phone Care Team Providers Care Dynamometer Tester Name Role Phone Christiana Campbell MD Primary Care Provider Caroline illety Allergies Active Allergy Reactions Criticality Noted Date Comments Penicillins 09/19/2022 Raw Fruit 09/22/2022 Pt can have canned fruit and cooked fruit Medications amLODIPine (NORVASC) 5 MG tablet Take 5 mg by mouth daily. 06/16/20 Active ELIQUIS 5 mg tablet Take 5 mg by mouth 2 (two) times a day. 08/16/20 Active cholecalciferol (VITAMIN D3) 2,000 unit tablet Take 2,000 Units by mouth daily. 08/16/20 Active cloNIDine HCL (CATAPRES) 0.2 MG tablet Take 0.2 mg by mouth nightly at bedtime. at bedtime. 08/16/20 Active losartan-hydroC HLOROthiazide (HYZAAR) 100-25 mg per tablet Take 1 tablet by mouth daily. 06/16/20 Active omeprazole (PRILOSEC) 20 MG capsule Take 20 mg by mouth daily. 08/16/20 Active QUEtiapine (SEROQUEL) 50 MG tablet Take 50 mg by mouth nightly at bedtime. at bedtime. 08/16/20 Active rosuvastatin (CRESTOR) 40 MG tablet Take 40 mg by mouth nightly at bedtime. at bedtime. 08/16/20 Active sertraline (ZOLOFT) 50 MG tablet Take 50 mg by mouth daily. 08/16/20 Active acetaminophen (TYLENOL) 325 mg tablet Take 2 tablets (650 mg total) by mouth every 6 (six) hours as needed. 0 09/23/20 Active Additional Information Patient not taking.Reported on 03/07/2023 tamsulosin (FLOMAX) 0.4 mg Cap take 1 capsule by oral route every day 1/2 hour following the same meal each day 08/11/20 Active fluticasone propionate (FLONASE) 50 mcg/actuation nasal spray 2 sprays by Nasal route daily as needed for allergies. Instill 2 sprays in each nostril once daily as needed 09/13/20 Active EPINEPHrine 0.3 mg/0.3 mL auto-injector Inject 0.3 mg into the muscle. 09/12/20 Active cetirizine (ZYRTEC) 10 MG tablet Take 10 mg by mouth daily. 09/13/20 Active OXcarbazepine (TRILEPTAL) 300 MG tablet Take 300 mg by mouth 2 (two) times a day. Active docusate sodium (COLACE) 100 MG capsule Take 1 capsule (100 mg total) by mouth 2 (two) times a day. 02/15/20 Active Medication-Free Text Medbox status Active VENTOLIN HFA 90 mcg/actuation inhaler inhale 2 puffs by mouth every 4 hours as needed for wheezing or shortness of breath Active alfuzosin (UROXATRAL) 10 mg 24 hr tablet 10 mg. 09/11/20 Active hydrocortisone acetate (ANUSOL-HC) [address] 1 suppository (25 mg total) rectally daily. 21 suppository 3 12/26/19 24 Active hydrocortisone (ANUSOL-HC) 2.5 % rectal cream Place rectally 2 (two) times a day. 30 g 01/01/20 24 Active Active Problems Problem Noted Date Diagnosed Date S/P colectomy 02/20/2023 Diverticulitis 02/13/2023 Diverticulitis of large intestine with abscess 1 11/20/2021 Assessment & Plan (09/22/2022 5:42 PM EST): Patient presented with abdominal pain of 3 [...] IV fluids and opiates for pain control. History of pulmonary embolism 09/20/2022 Assessment & Plan (09/22/2022 5:42 PM EST): Stable. No respiratory symptoms. Oxygenating well on room air. -On home Eliquis. - If surgery feels that intervention is necessary he will need to be placed on a heparin drip. BPH (benign prostatic hyperplasia) 09/20/2022 Epilepsy 09/20/2022 Assessment & Plan (09/21/2022 5:59 PM EST): Seizure-free regimen of Trileptal. Essential hypertension 09/20/2022 Assessment & Plan (09/22/2022 5:43 PM EST): Hydrochlorothiazide on hold as patient is receiving IV fluids with only clear liquid intake. Blood pressures well controlled with losartan, clonidine and amlodipine. GERD (gastroesophageal reflux disease) Assessment & Plan (09/21/2022 6:00 PM EST): Asymptomatic. Hyperlipidemia 09/20/2022 Assessment & Plan (09/20/2022 3:03 AM EST): Continue rosuvastatin. History of stroke 09/20/2022 Assessment & Plan (09/22/2022 5:43 PM EST): Remains on home regimen of Eliquis. Stable no neurologic symptoms. Diverticulitis of large inte winnie with abscess without bleeding 09/20/2022 Abdominal pain Immunizations Immunization Administration Dates Next Due COVID-19 (Pre-08/13) Moderna Vaccine, mRNA, PF 01/02/2021 Hepatitis B Adult 12/05/2011,05/30/2011,01/18/20 11 INFLUENZA, SPLIT VIRUS, TRIV ALENT W/ PRESERVATIVE IM 09/05/2022,07/10/2018 Influenza Quadrivalent MDCK Preservative Free IM 09/29/2022 Influenza Split (Incl. Purif ied Surface Antigen) 07/29/2013 Tdap 09/09/2012,01/06/2011 Zoster recombinant 12/01/2022,09/29/2022 Family History Medical History Relation Comments Hypertension Brother 1 Hypertension Brother 2 Hypertension Brother 3 Hypertension Brother 4 Hypertension Brother 5 Hypertension Brother 6 Hypertension Brother 7 Cancer Father Heart disease Father Hypertension Mother Relation Status Comments Brother 1 Alive Brother 2 Alive Brother 3 Alive Brother 4 Alive Brother 5 Alive Brother 6 Alive Brother 7 Alive Father Mother Alive Social History Tobacco Use Types Packs/Day Years Used Date Smoking Tobacco: Never Smokeless Tobacco: Never Tobacco Cessation:Counseling Given: Not Answered Alcohol Use Standard Drinks/Week Comments Never 0 (1 standard drink = 0.6 oz pur e alcohol) Education Answer Date Recorded Are you interested in more education? Not on mansi e 02/15/2023 Are you concerned about learning? Not on file 02/15/2023 No 02/15/2023 No 02/15/2023 Digital Access Answer Date Recorded No 03/13/2023 No 03/13/2023 Reliable internet access at home? Not on file 03/13/2023 Device with a working camera? Not on file Intimate Partner Violence Answer Date R ecorded [...] on file Sexual Orientation Not on file Last Filed Vital Signs Vital Sign Reading Time Taken Comments Blood Pressure 122/72 12/26/2023 11:32 AM EST Pulse 70 12/26/2023 11:32 AM EST Temperature 36.8 C (98.3 F) 12/26/2023 11:32 AM EST Respiratory Rate 18 02/14/2023 3:49 PM EDT Oxygen Saturation 96% 12/26/2023 11:32 AM EST Inhaled Oxygen Concentration - - Weight 95.3 kg (210 lb) 02/13/2023 4:16 PM EDT Height 165.1 cm (5' 5 ) 02/13/2023 4:16 PM EDT Body Mass Index 34.95 02/13/2023 4:16 PM EDT Plan of Treatment Health Maintenance Due Date Last Done Comments DEPRESSION SCREENING 1981 HEPATITIS C SCREENING 1987 HIV ONE-TIME SCREENING (18-65 YEARS) 1987 COLOGUARD 2014 COLONOSCOPY 2014 FIT TEST 2014 SIGMOIDOSCOPY 2014 VIRTUAL COLONOSCOPY 2014 PNEUMOCOCCAL VACCINES (50+ years) (1 of 1 - PCV) 2019 CREATININE LEVEL 02/15/2024 02/14/2023, 11/2021, 09/20/2022, Additional history exists POTASSIUM LEVEL 02/15/2024 02/14/2023, 12/11/2021, 09/20/2022, Additional history exists BLOOD PRESSURE 06/27/2024 12/26/2023 COLORECTAL CANCER SCREENING 11/15/2024 FOBT 11/15/2024 11/15/2023 INFLUENZA VACCINE (#1) 2025 , 09/05/2022, 07/10/2018, Additional history exists COVID-19 VACCINE ( - season) 2025 01/02/2021 SCREENING FOR DIABETES 02/13/2026 02/13/2023 LIPID PANEL 04/20/2028 04/20/2023 Adult Td,Tdap Booster 12/01/2032 12/01/2022 , 09/09/2012, 01/06/2011 ZOSTER VACCINES Completed 12/01/2022, 09/29/2022 SMOKING STATUS SCREENING (Once After 26 Yrs) Completed 12/26/2023 HEPATITIS A VACCINES Aged Out No long er eligible based on patient's age to complete this topic HIB VACCINES Aged Out No longer eligi ble based on patient's age to complete this topic MENINGOCOCCAL VACCINES (ACWY) Aged Out No longer eligible based on patient's age to complete this topic MENINGOCOCCAL VACCINES (B) Aged Out N o longer eligible based on patient's age to complete this topic Medical Devices Not on file Procedures Procedure Name Priority Date/Time Associated Diagnosis Comments BASIC METABOLIC PANEL Routine 02/14/2023 5:33 AM EDT from Last 3 Months or Most Recently Relevant to Health Maintenance Results * (ABNORMAL) Basic metabolic panel (02/14/2023 5:33 AM EDT) SODIUM 140 133 - 146 mmol/L [facility] CHLORIDE 102 96 - 108 mmol/L [facility] POTASSIUM 4.4 3.3 - 5.1 mmol/L [facility] CO2 25 21 - 35 mmol/L [facility] BUN 19 6 - 19 mg/dL [facility] CREATININE 1.00 0.5 - 1.5 mg/dL [facility] GLUCOSE 146(H) 70 - 99 mg/dL [facility] CALCIUM 8.9 8.4 - 10.3 mg/dL [facility] EGFR 89 >59 mL/min/1.7 3m2 [facility] Comment:Estimated glomerular filtration rate calculated using the CKD-EPI refit equation. ANION GAP 17 10 - 20 mmol/L [facility] Blood 02/14/2023 5:33 AM EDT 02/14/2023 5:52 AM EDT us Tierra Pollock MD LAB BLOOD ORDERABLES Final R esult [facility] [address] [place] [address] from Last 3 Months or Most Recently Relevant to Health Maintenance Insurance C3 ACO C3 ACO C3 ACO C[address] [place] [address] [address] [place] [address] C3 ACO Advance Directives For more information, please contact: [phone] (9AM - 5PM [facility] * Full Code (Latest Code Status on File) Date Activated Date Inactivated Comments 02/13/2023 3:44 PM Question Answer Comments Code Status Confirmed With: Patient * Full Code Date Activated Date Inactivated Comments 02/13/2023 8:55 AM 02/13/2023 3:44 PM Question Answer Comments Code Status Confirmed With: Patient * Full Code Date Activated Date Inactivated Comments 09/20/2022 3:15 AM 02/13/2023 8:55 AM Question Answer Comments Code Status Confirmed With: Patient Care Teams Dynamometer Tester Relationship Specialty Start Date End Date Christiana Campbell MD PCP - General Internal Medicine 09/27/22 Additional Source Comments The information contained in this document represents components of the legal health record. It is not the complete legal health record.[facility]
--- OUTSIDE RECORDS SUMMARY | 2025-07-07 11:10 | XMS_ITS | Encounter Summary ---
Author Organization [employer] Address [address] [place] [address] 7t [place] [address] Care Team Providers Care Band Straightener Name Role Phone Jose M Campbell VERONICA Primary Care Provider Unavail Sandra Mercado Primary Care Provider + Daniel Krause MD Primary Care Provider [phone] Milana Mata DO Primary Care Provider + Reason for Visit * Reason Comments Med Refill Encounter Details Date Type Department Care Team ([facility] st Contact Info) Description 04/05/2023 Refill [facility] [address] [place], [place] [phone] Evie Francisco MD [address] [place] [address] Allergic rhinitis, unspecified seasonality, unspecified trigger Social [...] Description 07/28/2025 10:00 AM EDT Clinical Support [facility] [address] [place] [address] Stacia Mcfarland, RN documented as of this encounter Visit Diagnoses Diagnosis Allergic rhinitis, unspecified seasonality, unspecified trigger documented in this encounter Additional Health Concerns Assessment Noted Time PHQ-9 Depression Total Score: 12 023 2:23 PM EDT documented as of this encounter Care Teams Band Straightener Relationship Specialty Start Date End Date Campbell Salguero AGNP PCP - General Family Medicine 09/25/22 07/05/23 Sandra De Jesus FNP [address] [place] [address] PCP - General Family Medicine 07/06/23 06/23/24 Daniel Krause MD [address] [place] [address] PCP - General Internal Medicine 06/24/24 07/01/24 Milana Mata DO [address] [place] [address] PCP - General Family Medicine 07/02/24 documented as of this encounter
[2025-07-07 11:21] LABS: MANUAL DIFF FLAG NO
[2025-07-07 11:37] LABS: Hematocrit 38.2 % (42.0-52.0); Hemoglobin 12.1 g/dl (14.0-18.0); Imm Gran Abs Auto 0.01 X10*3/uL (0.00-0.03); Imm Gran Pct Auto 0.2 % (0.0-0.4); Lymphocytes Absolute Auto 1.9 X10*3/uL (1.2-4.9); Mean Corpuscular HGB Conc 31.7 g/dl (31.0-36.0); Mean Corpuscular Hemoglobin 25.7 pg (27.0-33.0); Mean Corpuscular Volume 81.1 fL (80.0-98.0); NRBC Abs Auto 0.000 X10*3/uL (0.0-0.012); NRBC Pct Auto 0.0 /100WBC (0.0-0.2); Platelet Count 240 X10*3/uL (160-400); Red Blood Count 4.71 X10*6/uL (4.60-5.80); White Blood Count 6.6 X10*3/uL (4.8-10.8)
[2025-07-07 12:30] LABS: Alanine Aminotransferase 23 U/L (0-40); Albumin Level 4.4 g/dL (3.5-5.0); Alkaline Phosphatase 103 U/L (39-117); Anion Gap 10 (12-20); Aspartate Amino Transferase 22 U/L (5-37); Blood Urea Nitrogen 14 mg/dL (9-16); Calcium 9.1 mg/dL (8.4-10.2); Carbon Dioxide 30 mmol/L (22-29); Chloride 104 mmol/L (96-108); Estimated Glomerular Filt Rate > 60; Potassium 3.9 mmol/L (3.3-5.1); Sodium 140 mmol/L (135-145); Total Protein 7.3 g/dL (6.5-8.0)
[2025-07-07 13:19] LABS: Appearance Urine Turbid; Glucose Urine UA Negative (Negative); PH 5.5 (5.0-9.0); Specific Gravity - Urine >= 1.030 (1.005-1.025)
[2025-07-13 11:54] LABS: Class Mouse Urine Protein 0
[2025-07-13 11:55] LABS: I006-IgE Cockroach, German 0.19
[2025-07-13 11:56] LABS: Class Cockroach 0/1
[2025-07-13 11:57] LABS: Class Dermatophagoides farinae 0/1; D002 - IgE D farinae 0.21
[2025-07-13 11:58] LABS: Class Cat Dander 0; E001 - IgE Cat Dander <0.10; E005 - IgE Dog Dander 0.35
[2025-07-13 11:59] LABS: Class Dog Dander 1
[2025-07-13 12:00] LABS: G006 - IgE Timothy Grass <0.10
[2025-07-13 12:01] LABS: Class Alternaria alternata 0; Class Aspergillus fumigatus 0; Class Cladosporium herbarum 0; Class Mountain Cedar 0; Class Oak 3; Class Timothy Grass 0; M002 - IgE Cladosporium herbar <0.10; M003 - IgE Aspergillus fumigat <0.10; M006 - IgE Alternaria alternat <0.10; T006 - IgE Cedar, Mountain <0.10; T007 - IgE Oak, White 7.70
[2025-07-13 12:02] LABS: Class Common Ragweed 0; Class Cottonwood 0; Class Mugwort 0; Class Sycamore 0; Class Walnut Tree 0; Class White Ash 0/1; Class White Mulberry 0; T010 - IgE Walnut <0.10; T011 - IgE Maple Leaf Sycamore <0.10; T014 - IgE Cottonwood <0.10; T015 - IgE Ash, White 016; T070 - IgE White Mulberry <0.10; W001 - IgE Ragweed, Short <0.10; W006 - IgE Mugwort <0.10
[2025-07-13 12:03] LABS: Class Bermuda Grass 0; Class Birch 4; Class Derm. pterony 2; Class Elm 0; Class Maple Box Elder 2; Class Penicillium crysogenum 0; T001 IgE Maple/Box Elder 2.12; T008 IgE Elm, American <0.10
[2025-07-13 12:04] LABS: Class Rough Pigweed 0; Class Sheep Sorrel 0; W014 IgE Pigweed, Common <0.10; W018 IgE Sheep Sorrel <0.10
== END 2025-07-07 08:59 | disposition home or self-care (01) ==
LOC: HO.HHCX 08:58
PROVIDERS: PCP Family Medicine; Referring Provider Family Medicine; Visit Provider Hospitalist
DX: Z00.00 Encounter for general adult medical examination without abnormal findings (principal); Z23 Encounter for immunization; T78.40XA Allergy, unspecified, initial encounter; I10 Essential (primary) hypertension; E78.49 Other hyperlipidemia; R73.03 Prediabetes; F33.9 Major depressive disorder, recurrent, unspecified; G40.909 Epilepsy, unspecified, not intractable, without status epilepticus; D68.9 Coagulation defect, unspecified; R10.9 Unspecified abdominal pain; G89.29 Other chronic pain; G47.33 Obstructive sleep apnea (adult) (pediatric); J45.909 Unspecified asthma, uncomplicated; R91.1 Solitary pulmonary nodule; M54.6 Pain in thoracic spine; Z68.36 Body mass index [BMI] 36.0-36.9, adult
CPT/HCPCS: 36415; 71046; 80053; 81001; 82785; 85025; 85652; 86003; 86140

== ENCOUNTER → 2025-07-07 09:07 | Outpatient (BNV) | payer MEDICAID, SELFPAY | PROVIDERS: PCP Family Medicine; Referring Provider Family Medicine; Visit Provider Radiology Diagnostic Radiology | DX: R07.89 Other chest pain (principal) | CPT/HCPCS: 71046 ==

== ENCOUNTER 2025-07-10 08:56 | Outpatient (REF) | payer MEDICAID, SELFPAY ==
--- OUTSIDE RECORDS SUMMARY | 2024-04-14 06:20 | XMS_ITS ---
Author Organization [facility] Address [address] [place] [address] Care Team Providers Care Biomedical Equipment Support Specialist Name Role Phone Adolfo Vivar, Milana Primary Care Provider Fabiola vailaRaphael Esparza Jr Unavailable [phone] REASON FOR VISIT Patient presents today for an OFFICE VISIT F/U HX OF DIVERTICULITIS Encounters Encounter Location Date Provider Diagnosis [facility] [address] [place] [address] 04/14/2024 Raphael Powell Jr Plan Of Treatment Next Appt Details Provider Name:Raphael yi Jr, 05/17/2026 09:20:00 AM, [address] [place] [address], [address], [place], [address], Progress Notes * FANY ORALDOB:1970 (55 yo M)Acc No.[id number]:04/14/2024 Progress Notes Patient: ORAL VALDOVINOS Provider: Jaye Powell MD :1970 A ge:54 Y S ex:Male Date:04/14/2024 Address:[address] [place] [address] [address], [id number] Pcp:Milana Mata M.D. Subjective: * Chief Complaints: * 1 . Patient presents today for an OFFICE VISIT F/U HX OF DIVERTICULITIS. * Medical History: Objective: * Vitals: Assessment: Plan: * Treatment: * * The named appointment provid er may or may not be the originator of this progress note, and it is not deemed complete until electronically signed by the appointment provider. Sign off status: Pending * Provider: Jaye Powell MD Date: 0 04/14/2024 Generated for Phil walter/Filippo/Paolo on: 0 07/10/2025 09:40 AM EDT
--- OUTSIDE RECORDS SUMMARY | 2024-07-21 05:40 | XMS_ITS ---
Author Organization [facility] Address [address] [place] [address] Care Team Providers Care New Car Driver Name Role Phone Adolfo Vivar, Milana Primary Care Provider Fabiola Raphael Antonio Jr Unavailable REASON FOR VISIT Patient presents today for diverticulitis Encounters Encounter Location Date Provider Diagnosis [facility] [address] [place] [address] 07/21/2024 Raphael Powell Jr Plan Of Treatment Next Appt Details Provider Name:Raphael yi Jr, 05/17/2026 09:20:00 AM, [address], [address], [place], [address], Progress Notes * ORAL SOARESDOB:1970 (55 yo M)Acc No.[id number]:07/21/2024 Progress Notes Patient: ORAL VALDOVINOS Provider: Jaye Powell MD :1970 A ge:54 Y S ex:Male Date:07/21/2024 Address:[address] [place] [address] [address], [place], [place] Pcp:Milana Mata M.D. Subjective: * Chief Complaints: [...] 07/21/2024 Generated for Phil walter/Filippo/Paolo on: 0 07/10/2025 09:40 AM EDT
--- OUTSIDE RECORDS SUMMARY | 2025-07-06 19:40 | XMS_ITS | Encounter Summary ---
Author Organization [employer] Address [address] [facility] [address] [place] [address] Care Team Providers Care Crane Crew Supervisor Name Role Phone AdolfoMilana Primary Care Provider + [phone] Encounter Details Date Type Department Care Team ([facility] st Contact Info) Description 07/06/2025 7:40 PM EDT Office Visit [facility] [address] [place] [address] Willy Rock MD [address] [place] [address] Mid back pain on right side (Primary Dx) Social History Tobacco Use Types [...] Sign Reading Time Taken Comments Blood Pressure 125/80 07/06/2025 6:59 PM EDT Pulse 97 07/06/2025 6:59 PM EDT Temperature 36.6 C (97.8 F) 07/06/2025 6:59 PM EDT Respiratory Rate 18 07/06/2025 6:59 PM EDT Oxygen Saturation - - Inhaled Oxygen Concentration - - Weight 88.9 kg (196 lb) 07/06/2025 6:59 PM EDT Height 165.1 cm (5' 5 ) 07/06/2025 6:59 PM EDT Body Mass Index 32.62 07/06/2025 6:59 PM EDT documented in this encounter Progress Notes * Willy Rock MD - 07/06/2025 7:40 PM EDT Subjective History was provided by the patient. Reynaldo Frey is a 55 y.o. male who presents for evaluation of right-sided lateral mid-back pain. However, the pain is not reproducible by palpation. Reports pain is deep and more noticeable with deep inspiration and position change. Yesterday, his symptoms completely went away for several hours, but now resumed. Denies any trauma or fall. Denies any activity change. No recent travel. Currently on Eliquis for history of PE. Denies CP/SOB/PHELPS. Denies cough or congestion. Denies F/C/N/V/D. Denies hematuria or dysuria. Denies abdominal pain. Also with underlying GENE & asthma, followed by Pulmonology. Recent CT (05/12/2025) showed 1.4mm non-calcified pulmonary nodule in the periphery of right anterior upper lung; no lymphadenopathy; noaneurysm or dissection, no pleural effusion, no pneumothorax; presence of transverse colon diverticula; found to have endplate compression deformity at T9, T11, and T12 vertebra (likely old). Has been on Trulicity for >1 year. O2 sat 98% on RA today. Objective Vitals: 07/06/25 1859 BP: 125/80 BP Location: Left arm Patient Position: Sitting BP Cuff Size: Adult Pulse: 97 Resp: 18 Temp: 97.8 ??F (36.6 ??C) TempSrc: Oral Weight: 196 lb (88.9 kg) Height: 5' 5 (1.651 m) Physical Exam Vitals reviewed. Constitutional: General: He is not in acute distress. Appearance: Normal appearance. He is not ill-appearing, toxic-appearing or diaphoretic. HENT: Head: Normocephalic and atraumatic. Right Ear: External ear normal. Left Ear: External ear normal. Nose: Nose normal. Mouth/Throat: Mouth: Mucous membranes are moist. Pharynx: Oropharynx is clear. No oropharyngeal exudate or posterior oropharyngeal erythema. Eyes: Extraocular Movements: Extraocular movements intact. Conjunctiva/sclera: Conjunctivae normal. Cardiovascular: Rate and Rhythm: Normal rate and regular rhythm. Heart sounds: Normal heart sounds. Pulmonary: Effort: Pulmonary effort is normal. No respiratory distress. Breath sounds: Normal breath sounds. No wheezing, rhonchi or rales. Chest: Chest wall: No tenderness. Abdominal: General: Abdomen is flat. There is no distension. Palpations: Abdomen is soft. Tenderness: There is no abdominal tenderness. There is no right CVA tenderness, left CVA tenderness, guarding or rebound. Musculoskeletal: General: Tenderness (in the right flank area, not reproducible by palpation; no CVAT bilaterally) present. Normal range of motion. Cervical back: Neck supple. Lymphadenopathy: Cervical: No cervical adenopathy. Skin: General: Skin is warm and dry. Neurological: General: No focal deficit present. Mental Status: He is alert and oriented to person, place, and time. Psychiatric: Mood and Affect: Mood normal. Behavior: Behavior normal. Thought Content: Thought content normal. Judgment: Judgment normal. No visits with results within 2 Day(s) from this visit. Latest known visit with results is: Orders Only on 05/12/2025 Component Date Value Ref Range Status POCT Creatinine 05/12/2025 0.9 0.5 - 1.4 mg/dL Final GFR POC 05/12/2025 >60 Final Chronic Kidney Disease: Estimated GFR < 60 mL/min/1.95j4Ntufrj Kidney Disease: Estimated GFR < 15 mL/min/1.73m2 Diagnoses and all orders for this visit: Mid back pain on right side (Primary) - XR Chest 2 Views; Future - CBC auto differential; Future - Comprehensive Metabolic Panel; Future - Urinalysis Complete; Future Patient presents to [facility] with right-sided flank pain, not reproducible with palpation Pain present for 9 days with a brief alleviation of pain without intervention Pain is more noticeable with deep inspiration and position change Underlying PE on Eliquis Denies any dyspnea or SOB Normal pulmonary exam and no respiratory distress O2 sat reassuring Denies any urinary symptoms Will check CXR Also check CBC, CMP and UA Warm compress has been helpful short-term; advised to continue Recent CT revealed old compression deformity at T9, T11, and T12 vertebra, but his symptoms are new Advised to contact the clinic if no improvement of symptoms Indications for UC/ER use reviewed documented in this encounter Plan of Treatment Upcoming Encounters Date Type Department Care Team (Late st Contact Info) Description 07/28/2025 10:00 AM EDT Clinical Support [facility] [address] [place] [address] Stacia Mcfarland RN 08/10/2025 9:45 AM EDT Office Visit [facility] [address] [place] [address] Heidi Nolen FNP [address] [place] [address] documented as of this encounter Procedures Procedure Name Priority Date/Time Associated Diagnosis Comments XR CHEST 2 VIEWS Routine 07/07/2025 9:3 0 AM EDT Mid back pain on right side CBC WITH AUTO DIFFERENTIAL Routine 07/07/2025 9:24 AM EDT Mid back pain on right side URINALYSIS, COMPLETE Routine 07/07/2025 9:24 AM EDT Mid back pain on right side COMPREHENSIVE METABOLIC PANEL Routine 07/07/2025 9:24 AM EDT Mid back pain on right side documented in this encounter Results * XR Chest 2 Views (07/07/2025 9:30 AM EDT) Anatomical Region Laterality Modality Chest Radiographic Marybel ging 07/07/2025 9:30 AM EDT Narrative 07/07/2025 9:39 [place] [address] XRay Report Signed Patient: Reynaldo Osuna MR#: [id number] : 1970 Acct:[id number] Age/Sex: 55 / M ADM Date: 07/07/25 Loc: HO.HHCX Attending Dr: Chance Ortiz MD Ordering Physician: Willy Rock MD Date of Service: 07/07/25 Procedure(s): XR chest 2V Accession Number(s): [id number] cc: Milana Mata DO; Willy Rock MD Reason for Exam: Patient with right-sided posterior chest pain for 9 days EXAMINATION: XR CHEST CLINICAL INFORMATION: Patient with right-sided posterior chest pain for 9 days COMPARISON: 02/28/2025. TECHNIQUE: 2 views of the chest were obtained. FINDINGS: The cardiac, hilar, and mediastinal contours are normal. The lungs are clear bilaterally. There is no pneumothorax or pleural effusion. There is no focal osseous or soft tissue abnormality. XR/XR chest 2V IMPRESSION: Normal chest. Electronically signed by: Esequiel Harris MD 07/07/2025 09:35 AM EDT Dictated By: Esequiel Harris MD Signed By: <Electronically signed by Esequiel Harris MD in OV> 07/07/25934 DD/ 9 TD/TT: 07/07/25930 Parts Counter Salesperson: Procedure Note Verito, Image - 07/07/2025 [facility] [address] [place] [address] XRay Report Signed Patient: Patrick Osuna#: [id number] : 1970Acct:[id number] Age/Sex: 55 / MADM Date: 07/07/25 Loc: HO.HHCX Attending Dr: Chance Ortiz MD Ordering Physician: Willy Rock MD Date of Service: 07/07/25 Procedure(s): XR chest 2V Accession Number(s): [id number] cc: Milana Mata DO; Willy Rock MD Reason for Exam: Patient with right-sided posterior chest pain for 9 days EXAMINATION: XR CHEST CLINICAL INFORMATION: Patient with right-sided posterior chest pain for 9 days COMPARISON: 02/28/2025. TECHNIQUE: 2 views of the chest were obtained. FINDINGS: The cardiac, hilar, and mediastinal contours are normal. The lungs are clear bilaterally. There is no pneumothorax or pleural effusion. There is no focal osseous or soft tissue abnormality. XR/XR chest 2V IMPRESSION: Normal chest. Electronically signed by: Esequiel Harris MD 07/07/2025 09:35 AM EDT Dictated By: Esequiel Harris MD Signed By: <Electronically signed by Esequiel Harris MD in OV> 07/07/2535 DD/ 9 TD/TT: 07/07/25930 Parts Counter Salesperson: Willy Rock MD IMG XR PROCEDURES Edited Result - Final * (ABNORMAL) Urinalysis Complete (07/07/2025 9:24 AM EDT) Color Urine Yellow [facility] Appearance Urine Turbid [facility] PH 5.5 5.0 - 9.0 [facility] Glucose Urine UA Negative Negative mg/dL [facility] Urine Blood Negative Negative [facility] Specific [place] - Urine >=1.030(H) 1.005 - 1.025 [facility] Urine Protein Negative Neg-Trace mg/dL [facility] Urine Ketones Negative Negative mg/dL [facility] Nitrite Urine Negative Negative [facility] Leukocyte Esterase Urine Negative Negative [facility] RBC Urine 0-2 0 - 2 /HPF [facility] Urine WBC 0-5 0 - 5 /HPF [facility] Urine Squamous Epithelial Cell 0-2 0 - 2 /HPF [facility] Urine Bacteria None Seen None Seen [facility] Hyaline Casts, Urine 0-2 0 - 2 /LPF [facility] Urine (Urine, Random) 07/07/2025 9:24 AM EDT 07/07/2025 12:18 PM EDT us Willy Rock MD LAB URINE ORDERABLES Final Resul t [facility] [address] [place] [address] [phone] * (ABNORMAL) Comprehensive Metabolic Panel (07/07/2025 9:24 AM EDT) Sodium 140 135 - 145 mmol/L [facility] Potassium 3.9 3.3 - 5.1 mmol/L [facility] Chloride 104 96 - 108 mmol/L [facility] Carbon Dioxide 30(H) 22 - 29 mmol/L [facility] Anion Gap 10(L) 12 - 20 [facility] Urea Nitrogen (BUN) 14 9 - 16 mg/dL [facility] Creatinine, Serum 0.78 0.5 - 1.4 mg/dL [facility] Estimated Glomerular Filt Rate >60 [facility] Comment:Chronic Kidney Disea se: Estimated GFR < 60 mL/min/1.64v5Jqgwas Kidney Disease: Estimated GFR < 15 mL/min/1.73m2 Glucose 96 60 - 115 mg/dL [facility] Calcium 9.1 8.4 - 10.2 mg/dL [facility] Bilirubin, Total 0.4 0.0 - 1.0 mg/dL [facility] Aspartate Amino Transferase 22 5 - 37 U/L [facility] Alanine Aminotransferase 23 0 - 40 U/L [facility] Total Protein 7.3 6.5 - 8.0 g/dL [facility] Albumin Level 4.4 3.5 - 5.0 g/dL [facility] Alkaline Phosphatase 103 39 - 117 U/L [facility] Blood Venous blood specimen / Unknown 07/07/2025 9:24 AM EDT 07/07/2025 11:20 AM EDT us Willy Rock MD LAB BLOOD ORDERABLES Final Resul t [facility] [address] [place] [address] [phone] * (ABNORMAL) CBC auto differential (07/07/2025 9:24 AM EDT) White Blood Count 6.6 4.8 - 10.8 X10*3/uL [facility] Red Blood Count 4.71 4.60 - 5.80 X10*6/uL [facility] Hemoglobin 12.1(L) 14.0 - 18.0 g/dl [facility] Hematocrit 38.2(L) 42.0 - 52.0 % [facility] Mean Corpuscular Volume 81.1 80.0 - 98.0 fL [facility] Mean Corpuscular Hemoglobin 25.7(L) 27.0 - 33.0 pg [facility] Mean Corpuscular HGB Conc 31.7 31.0 - 36.0 g/dl [facility] Red Cell Distribution Width 14.6 11.0 - 16.0 % [facility] Platelet Count 240 160 - 400 X10*3/uL [facility] Mean Platelet Volume 12.2 9.4 - 12.4 fL [facility] Neutrophils Percent Auto 62.1 45 - 73 % [facility] Imm Gran Pct Auto 0.2 0.0 - 0.4 % [facility] Lymphocytes Percent Auto 29.1 20 - 40 % [facility] Monocytes Percent Auto 6.7 2 - 11 % [facility] Eosinophils Percent Auto 1.4 0 - 4 % [facility] Basophils Percent Auto 0.5 0 - 2 % [facility] NRBC Pct Auto 0.0 0.0 - 0.2 /100WBC [facility] Neutrophils Absolute Auto 4.1 2.0 - 8.3 x10*3/uL [facility] Imm Gran Abs Auto 0.01 0.00 - 0.03 X10*3/uL [facility] Lymphocytes Absolute Auto 1.9 1.2 - 4.9 X10*3/uL [facility] Monocytes Absolute Auto 0.4 0.1 - 1.2 X10*3/uL [facility] Eosinophils Absolute Auto 0.1 0.0 - 0.4 X10*3/uL [facility] Basophils Absolute Auto 0.0 0.0 - 0.2 X10*3/uL [facility] NRBC Abs Auto 0.000 0.0 - 0.012 X10*3/uL [facility] Blood Venous blood specimen / Unknown 07/07/2025 9:24 AM EDT 07/07/2025 11:16 AM EDT us Willy Rock MD LAB BLOOD ORDERABLES Final Resul t [facility] [address] [place] [address] [phone] documented in this encounter Visit Diagnoses Diagnosis Mid back pain on right side- Primary documented in this encounter Additional Health Concerns Assessment Noted Time PHQ-9 Depression Total Score: 0 01/01/20 25 10:51 AM EDT documented as of this encounter Care Teams Crane Crew Supervisor Relationship Specialty Start Date End Date Milana Mata DO [address] [place] [phone] PCP - General Family Medicine 07/02/24 documented as of this encounter
--- OUTSIDE RECORDS SUMMARY | 2025-07-09 11:15 | XMS_ITS | Encounter Summary ---
Author Organization [employer] Address [address] [place] [address] 7[address] [place] [address] Care Team Providers Care Space Control Supervisor Name Role Phone Milana Mata DO Primary Care Provider [phone] Reason for Referral * Imaging (STAT) - Authorized Specialty Diagnoses / Procedures Referred By Contac t Referred To Contact Radiology Diagnoses Mid back pain on right side Pleuritic pain Procedures CT Abdomen w/ Contrast Mona Chan MD [address] [place] [address] Phone: tel: fax: [address] Phone: tel: fax: Referral ID Status Reason Start Date Expiration Date V isits Requested Visits Authorized [id number] Authorized 07/09/2025 07/09/2026 1 1 * Imaging (STAT) - Authorized Specialty Diagnoses / Procedures Referred By Contac t Referred To Contact Radiology Diagnoses Mid back pain on right side Pleuritic pain Procedures CT Chest w/ Contrast Mona Chan MD [address] [place] [address] Phone: tel: fax: [address] Phone: tel: fax: Referral ID Status Reason Start Date Expiration Date V isits Requested Visits Authorized [id number] Authorized 07/09/2025 07/09/2026 1 1 Encounter Details Date Type Department Care Team (Late st Contact Info) Description 07/09/2025 11:15 AM EDT Office Visit [facility] [address] [place] [address] Mona Chan MD [address] [place], [place] [phone] Mid back pain on right side (Primary Dx); Pleuritic pain Social History Tobacco Use Types Packs/Day [...] Sign Reading Time Taken Comments Blood Pressure 140/80 07/09/2025 11:55 AM EDT Pulse 81 07/09/2025 11:55 AM EDT Temperature 36.7 C (98 F) 07/09/2025 11:55 AM EDT Respiratory Rate 20 07/09/2025 11:55 AM EDT Oxygen Saturation 99% 07/09/2025 11:55 AM EDT Inhaled Oxygen Concentration - - Weight 90.7 kg (200 lb) 07/09/2025 11:55 AM EDT Height 165.1 cm (5' 5 ) 07/09/2025 11:55 AM EDT Body Mass Index 33.28 07/09/2025 11:55 AM EDT documented in this encounter Plan of Treatment Upcoming Encounters Date Type Department Care Team (Late st Contact Info) Description 07/28/2025 10:00 AM EDT Clinical Support [facility] [address] [place] [address] Stacia Mcfarland RN 08/10/2025 9:45 AM EDT Office Visit [facility] [address] [place] [phone] [facility] [address] [place] [address] Scheduled Orders Name Type Priority Associated Diagnoses Orde r Schedule D Dimer High Sensitivity Lab Routine Mid back pain on right side Pleuritic pain Expected: 07/09/2025, Expires: 07/09/2026 CT Chest w/ Contrast Imaging STAT Mid back pain on right side Pleuritic pain Expected: 07/09/2025, Expires: 07/09/2026 CT Abdomen w/ Contrast Imaging STAT Mid back pain on right side Pleuritic pain Expected: 07/09/2025, Expires: 07/09/2026 documented as of this encounter Visit Diagnoses Diagnosis Mid back pain on right side- Primary Pleuritic pain Painful respiration documented in this encounter Additional Health Concerns Assessment Noted Time PHQ-9 Depression Total Score: 0 01/01/20 25 10:51 AM EDT documented as of this encounter Care Teams Space Control Supervisor Relationship Specialty Start Date End Date Milana Mata DO [address] [place] [address] PCP - General Family Medicine 07/02/24 documented as of this encounter
--- OUTSIDE RECORDS SUMMARY | 2025-07-10 09:40 | XMS_ITS | Encounter Summary ---
Author Organization [facility] Address [address] [address] Phone Care Team Providers Care Paper Maker Name Role Phone Pcp, Unknown Primary Care Provider Christiana Amador MD Primary Care Provider Caroline magaña Encounter Details Date Type Department Care Team (Late st Contact Info) Description 09/19/2022 Procedure Pass [facility], Ct Scan - [address] [address] Social History Tobacco Use Types Packs/Day Years [...] 09/19/2022 7:36 PM Usman Trejo, RN * Loving Suicide Severity Rating Scale (Screener/Recent Self-Report) Question [...] on filedocumented in this encounter Care Teams Paper Maker Relationship Specialty Start Date End Date Pcp, Unknown PCP - General 09/19/22 09/26/22 Christiana Campbell MD PCP - General Internal Medicine 09/27/22 documented as of this encounter Additional Source Comments The information contained in this document represents components of the legal health record. It is not the complete legal health record.[facility]
--- OUTSIDE RECORDS SUMMARY | 2025-07-10 09:40 | XMS_ITS | Encounter Summary ---
Author Organization [employer] Address [address] [facility] 7t [place] [address] Care Team Providers Care Bindery Assistant Name Role Phone Sandra De Jesus Primary Care Provider + Jimi, Daniel العراقي Primary Care Provider [phone] Milana aMta DO Primary Care Provider [phone] Reason for Visit * Reason Comments Med Refill Encounter Details Date Type Department Care Team (Late st Contact Info) Description 10/21/2023 Refill [facility] [address] [place] [address] Sandra De Jesus FNP [address] [place], [place] [phone] Social History Tobacco Use Types Packs/Day Years [...] Description 07/28/2025 10:00 AM EDT Clinical Support [address] [address] Stacia Mcfarland RN 08/10/2025 9:45 AM EDT Office Visit [address] [address] [place] [address] [address] documented as of this encounter Visit Diagnoses Not on filedocumented in this encounter Additional Health Concerns Assessment Noted Time PHQ-9 Depression Total Score: 12 023 2:23 PM EDT documented as of this encounter Care Teams Bindery Assistant Relationship Specialty Start Date End Date Sandra De Jesus FNP [address] [place] [address] PCP - General Family Medicine 07/06/23 06/23/24 aDniel Krause MD [address] [place] [address] PCP - General Internal Medicine 06/24/24 07/01/24 Milana Mata DO [address] [place] [address] PCP - General Family Medicine 07/02/24 documented as of this encounter
--- OUTSIDE RECORDS SUMMARY | 2025-07-10 09:40 | XMS_ITS | Encounter Summary ---
Author Organization [employer] Address [address] [facility] 7t [place] [address] Care Team Providers Care Bow Repairer Custom Name Role Phone Sandra De Jesus Primary Care Provider + Daniel Krause MD Primary Care Provider [phone] Milana Mata DO Primary Care Provider [phone] Reason for Visit * Reason Comments Med Refill Encounter Details Date Type Department Care Team ([facility] st Contact Info) Description 08/01/2023 Refill [facility] [address] [place] [address] Ryan Nation MD [address] [place] [address] Social History Tobacco Use Types Packs/Day Years [...] Description 07/28/2025 10:00 AM EDT Clinical Support [facility] [address] [place] [address] Stacia Mcfarland RN 08/10/2025 9:45 AM EDT Office Visit [facility] [address] [place] [phone] Heidi Nolen FNP [address] [place] [address] documented as of this encounter Visit Diagnoses Not on filedocumented in this encounter Additional Health Concerns Assessment Noted Time PHQ-9 Depression Total Score: 12 023 2:23 PM EDT documented as of this encounter Care Teams Bow Repairer Custom Relationship Specialty Start Date End Date Sandra De Jesus FNP [address] [place] [address] PCP - General Family Medicine 07/06/23 06/23/24 Daniel Krause MD [address] [place] [address] PCP - General Internal Medicine 06/24/24 07/01/24 Milana Mata DO [address] [place] [address] PCP - General Family Medicine 07/02/24 documented as of this encounter
--- OUTSIDE RECORDS SUMMARY | 2025-07-10 09:40 | XMS_ITS | Encounter Summary ---
Author Organization [employer] Address [address] [place] [address] Care Team Providers Care Sanforizing Machine Operator Name Role Phone Sandra De Jesus Primary Care Provider + Jimi, Daniel العراقي Primary Care Provider [phone] Milana aMta DO Primary Care Provider [phone] Encounter Details Date Type Department Care Team (Late st Contact Info) Description 09/03/[address] [facility] [address] [place] [address] Iram Resendiz Social History Tobacco Use Types [...] Description 07/28/2025 10:00 AM EDT Clinical Support [facility] [address] [place] [address] Stacia Mcfarland RN 08/10/2025 9:45 AM EDT Office Visit [facility] [address] [place] [address] SomersHeidi hawkins [facility] [address] [place] [address] documented as of this encounter Visit Diagnoses Not on filedocumented in this encounter Additional Health Concerns Assessment Noted Time PHQ-9 Depression Total Score: 12 023 2:23 PM EDT documented as of this encounter Care Teams Sanforizing Machine Operator Relationship Specialty Start Date End Date Sandra De Jesus FNP [address] [place] [address] PCP - General Family Medicine 07/06/23 06/23/24 Daniel Krause MD [address] [place] [address] PCP - General Internal Medicine 06/24/24 07/01/24 Milana Mata DO [address] [place] [address] PCP - General Family Medicine 07/02/24 documented as of this encounter
--- OUTSIDE RECORDS SUMMARY | 2025-07-10 09:40 | XMS_ITS | Encounter Summary ---
Author Organization [employer] Address [address] [facility] [address] [place] [address] Care Team Providers Care News Copy Editor Name Role Phone Sandra De Jesus Primary Care Provider + Daniel Krause MD Primary Care Provider [phone] Milana Mata DO Primary Care Provider [phone] Reason for Visit * Reason Comments Med Refill Encounter Details Date Type Department Care Team (Late st Contact Info) Description 09/30/2023 Refill [facility] [address] [place] [address] Campbell Salguero AGNP Social History Tobacco Use [...] Description 07/28/2025 10:00 AM EDT Clinical Support [address] [address] Stacia Mcfarland, RN 08/10/2025 9:45 AM EDT Office Visit [address] [address] [address] [address] documented as of this encounter Visit Diagnoses Not on filedocumented in this encounter Additional Health Concerns Assessment Noted Time PHQ-9 Depression Total Score: 12 023 2:23 PM EDT documented as of this encounter Care Teams News Copy Editor Relationship Specialty Start Date End Date Sandra De Jesus FNP [address] [place] [address] PCP - General Family Medicine 07/06/23 06/23/24 Daniel Krause MD [address] [place] [address] PCP - General Internal Medicine 06/24/24 07/01/24 Milana Mata DO [address] [place] [address] PCP - General Family Medicine 07/02/24 documented as of this encounter
--- OUTSIDE RECORDS SUMMARY | 2025-07-10 09:40 | XMS_ITS | Encounter Summary ---
Author Organization [employer] Address [address] [facility] 7t [place] [address] Care Team Providers Care Azure Architect Name Role Phone Sandra De Jesus Primary Care Provider +- Name, Daniel العراقي Primary Care Provider [phone] Milana Mata DO Primary Care Provider [phone] Encounter Details Date Type Department Care Team (Late st Contact Info) Description 05/23/2024 Orders Only [facility] [address] [place] [address] Sandra De Jesus FNP [address] [place] [address] Cervical neck pain with evidence of disc [...] 10:00 AM EDT Clinical Support [facility] [address] [place] [address] Stacia Mcfarland, RAN 08/10/2025 9:45 AM EDT Office Visit [facility] [address] [place] [address] Heidi Nolen FNP [address] [place] [address] documented as of this encounter Visit Diagnoses Diagnosis Cervical neck pain with evidence of disc disease- Primary Other and unspecified disc disorder of cervical region documented in this encounter Additional Health Concerns Assessment Noted Time PHQ-9 Depression Total Score: 8 11/15/19 9:20 AM EST documented as of this encounter Care Teams Azure Architect Relationship Specialty Start Date End Date Sandra De Jesus FNP [address] [place] [address] PCP - General Family Medicine 07/06/23 06/23/24 Daniel Krause MD [address] [place] [address] PCP - General Internal Medicine 06/24/24 07/01/24 Milana Mata DO [address] [place] [address] PCP - General Family Medicine 07/02/24 documented as of this encounter
--- OUTSIDE RECORDS SUMMARY | 2025-07-10 09:40 | XMS_ITS | Encounter Summary ---
Author Organization [employer] Address [address] [facility] 7t [place] [address] Care Team Providers Care Harvest Crew Supervisor Name Role Phone Sandra De Jesus Primary Care Provider [phone] Daniel Krause MD Primary Care Provider [phone] Milana Mata DO Primary Care Provider + [phone] Reason for Visit * Reason Onset Date Comments [employer] Reevaluation 05/06/2024 Encounter Details Date Type Department Care Team ([facility] st Contact Info) Description 05/06/2024 Telephone [facility] [address] [place], [place] [phone] Sandra De Jesus FNP [address] [place], [place] [phone] [employer] Reevaluation Social History Tobacco Use Types Packs/Day [...] 05/13/2024 9:28 AM EDT Return call from [employer], explain that client want to re-start foster care program, Isidra advised to fax form to [facility], provider will review it and will contact agency if needed anything. Isidra verbally greed and understood. * Telephone Encounter - Alexys Orozco RN - 05/13/2024 9:09 AM EDT T/C x 2 am to [phone] for isidra for below message, No answer. [employer]er sent message to call back on [phone]. T/C to lissett to inform that [facility] is trying to call [employer] company for below message , but not able to contact them. LVM to call back on [phone]. Lissett states she is going to call them, Lissett also informed if [employer] company / [employer] is missing any sign please fax documents on [phone] to get sign from PCP. Lissett states she is going to call to company. * Telephone Encounter - Lorena Waldrop - 05/12/2024 4:06 PM EDT Tc from pt spouse regarding message below. * Telephone Encounter - Alexys Orozco RN - 05/12/2024 10:05 AM EDT T/C to [phone] for isidra for below message, No answer. [employer] sent message to call back on [phone]. * Telephone Encounter - Humberto Arauz - 05/12/2024 9:52 AM EDT Tc from [facility] requesting a status on PCP order form. Please see notes. Please contact at [phone] ( ask for isidra ) * Telephone Encounter - Brenda Gifford - 05/09/2024 12:35 PM EDT Tc from pt and Lissett requesting a call back in regards below message. Please contact at [phone] * Telephone Encounter - Alexys Orozco RN - 05/06/2024 4:21 PM EDT T/C to pt. For below message, pt. States his [employer] company called him and states PCP discontinue the service for [employer] services, pt. States he is having upcoming surgery and needs [employer] services. RN cannotsee any notes that says [...] Description 07/28/2025 10:00 AM EDT Clinical Support [address] [address] Stacia Mcfarland RN 08/10/2025 9:45 AM EDT Office Visit [address] [address] [address] documented as of this encounter Visit Diagnoses Not on filedocumented in this encounter Additional Health Concerns Assessment Noted Time PHQ-9 Depression Total Score: 8 11/15/19 9:20 AM EST documented as of this encounter Care Teams Harvest Crew Supervisor Relationship Specialty Start Date End Date Sandra De Jesus FNP [address] [place] [address] PCP - General Family Medicine 07/06/23 06/23/24 Daniel Krause MD [address] [place] [address] PCP - General Internal Medicine 06/24/24 07/01/24 Milana Mata DO [address] [place] [address] PCP - General Family Medicine 07/02/24 documented as of this encounter
--- OUTSIDE RECORDS SUMMARY | 2025-07-10 09:40 | XMS_ITS | Encounter Summary ---
Author Organization [employer] Address [address] [facility] 7t [place] [address] Care Team Providers Care Web Press Jogger Name Role Phone Sandra De Jesus Primary Care Provider [phone] Name, Daniel العراقي Primary Care Provider [phone] Milana Mata DO Primary Care Provider [phone] Encounter Details Date Type Department Care Team (Late st Contact Info) Description 02/05/2024 Telephone [facility] [address] [place] [address] Sandra De Jesus FNP [address] [place] [address] Social History Tobacco Use Types Packs/Day Years [...] 07/28/2025 10:00 AM EDT Clinical Support [facility] [address] [place] [address] Stacia Mcfarland, RAN 08/10/2025 9:45 AM EDT Office Visit [facility] [address] [place] [address] MinoaHeidi FNP [address] [place] [address] documented as of this encounter Visit Diagnoses Not on filedocumented in this encounter Additional Health Concerns Assessment Noted Time PHQ-9 Depression Total Score: 8 11/15/19 9:20 AM EST documented as of this encounter Care Teams Web Press Jogger Relationship Specialty Start Date End Date Sandra De Jesus FNP [address] [place] [address] PCP - General Family Medicine 07/06/23 06/23/24 Daniel Krause MD [address] [place] [address] PCP - General Internal Medicine 06/24/24 07/01/24 Milana Mata DO [address] [place] [address] PCP - General Family Medicine 07/02/24 documented as of this encounter
--- OUTSIDE RECORDS SUMMARY | 2025-07-10 09:40 | XMS_ITS | Encounter Summary ---
Author Organization [facility] Address [address] [address] Phone Care Team Providers Care Lead Java Programmer Name Role Phone Christiana Campbell MD Primary Care Provider Caroline magaña Encounter Details Date Type Department Care Team (Late st Contact Info) Description 02/13/2023 Procedure Pass OR Admitting Dept - [facility] Department [address] [place] [address] Social History Tobacco Use Types Packs/Day Years [...] 4:19 PM EDT Iliana Olguin RN * [place] Suicide Severity Rating Scale (Screener/Recent Self-Report) Question [...] on filedocumented in this encounter Care Teams Lead Java Programmer Relationship Specialty Start Date End Date Christiana Campbell MD PCP - General Internal Medicine 09/27/22 documented as of this encounter Additional Source Comments The information contained in this document represents components of the legal health record. It is not the complete legal health record.[facility]
--- OUTSIDE RECORDS SUMMARY | 2025-07-10 09:41 | XMS_ITS | Encounter Summary ---
Author Organization [employer] Address [address] [facility] 7t [place] [address] Care Team Providers Care Aging Department Supervisor Name Role Phone Milana Mata DO Primary Care Provider + [phone] Reason for Visit * Reason Onset Date Comments Medication Question 07/06/2025 Encounter Details Date Type Department Care Team ([facility] st Contact Info) Description 07/06/2025 Refill [facility] [address] [place], [place] [phone] Milana Mata DO [address] [place] [address] Type 2 diabetes mellitus without complication, without long-term current use of insulin ([facility]) Social History Tobacco Use Types Packs/Day Years [...] Description 07/28/2025 10:00 AM EDT Clinical Support [facility] [address] [place] [address] Stacia Mcfarland, RAN 08/10/2025 9:45 AM EDT Office Visit [facility] [address] [place], [place] [phone] Heidi Nolen FNP [address] [place] [address] documented as of this encounter Visit Diagnoses Diagnosis Type 2 diabetes mellitus without complication, without long-term current use of insulin ([facility]) documented in this encounter Additional Health Concerns Assessment Noted Time PHQ-9 Depression Total Score: 0 01/01/20 25 10:51 AM EDT documented as of this encounter Care Teams Aging Department Supervisor Relationship Specialty Start Date End Date Milana Mata DO [address] [place] [address] PCP - General Family Medicine 07/02/24 documented as of this encounter
--- OUTSIDE RECORDS SUMMARY | 2025-07-10 09:41 | XMS_ITS | Clinical Summary ---
Author Organization [employer] Co[employer] Address [address] [facility] [address] [place] [address] Care Team Providers Care Food And Nutrition Services Assistant Name Role Phone AdolfoMilana Primary Care Provider Allergies Active Allergy Reactions Criticality Noted Date Comments [place]-Containing Products Anaphylaxis High 04/20/2023 Fruit Extracts 10/10/2023 Pt states he is allergic to any fruit that has seeds Penicillins Rash High 10/12/2010 [place] Oil 08/21/2024 Medications OXcarbazepine (Trileptal) 300 MG [...] each Active Blood Glucose Monitoring Suppl (FreeStyle [place] Lite) w/Device kit Use to test blood [...] ONCE A WEEK DIRECTED 2 mL 3 025 Active Additional Information Patient not taking.Reported on 07/09/2025 Diclofenac Sodium 1 % gel APPLY 2 [...] BEDTIME NEEDED FOR MUSCLE SPASMS 60 tablet 025 Active rosuvastatin (Crestor) 40 MG tabletIndications :Hyperlipidemia, unspecified hyperlipidemia type TAKE 1 TABLET BY MOUTH AT BEDTIME 90 tablet 1 025 Active cetirizine (ZyrTEC) 10 MG tabletIndications :Seasonal allergic rhinitis, unspecified trigger TAKE 1 TABLET BY MOUTH EVERY MORNING 90 tablet 1 025 Active Dulaglutide (Trulicity) 1.5 MG/0.5ML solution auto-injectorIndi cations:Type 2 diabetes mellitus without complication, without long-term current use of insulin ([facility]) Inject 0.5 mL under the skin 1 (one) time per week. 2 mL 11 Active cloNIDine (Catapres) 0.2 MG tablet Take 0.2 mg by mouth at bedtime. Active cetirizine (ZyrTEC) 10 MG tabletIndications :Seasonal allergic rhinitis, unspecified trigger TAKE 1 TABLET BY MOUTH ONCE DAILY 90 tablet 1 025 2024 Discontinued traMADol (Ultram) 50 MG tabletIndications :Chronic neck and back pain TAKE 1 TABLET BY MOUTH EVERY TWELVE HOURS NEEDED FOR SEVERE PAIN FOR UP TO 28 DAYS 56 tablet 025 2024 Active Problems Problem Noted Date Diagnosed [...] there were small polyps. 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 Does not wear glasses. Dental home: upcoming appointment next month at [facility]. Allergies 04/20/2023 07/24/2024 Assessment & Plan (04/20/2023 [...] was prudent to send him to an bible teacher to get a comprehensive and accurate list [...] Encounters Date Type Department Care Team Description 07/10/2025 Refill [facility] [address] [place] [phone] Milana Mata DO Chronic neck and back pain 07/09/2025 11:15 AM EDT Office Visit [facility] [address] [place] [phone] Mona Chan MD Mid back pain on right side (Primary Dx); Pleuritic pain 07/09/2025 Travel 07/09/2025 Telephone [facility] [address] [place] [phone] Milana Mata DO Appointment Request 07/08/2025 Results Follow-Up [facility] [address] [place] [address] [phone] Willy Rock MD CBC auto differential, Comprehensive Metabolic Panel, Urinalysis Complete, XR Chest 2 Views 07/07/2025 Orders Only GENERIC EXTERNAL DATA DEPARTMENT Provider, Generic External Data 07/07/2025 Telephone [facility] [address] [place] [phone] Milana Mata DO Results 07/06/2025 7:40 PM EDT Office Visit [facility] [address] [place] [phone] Willy Rock MD Mid back pain on right side (Primary Dx) 07/06/2025 Travel 07/06/2025 Telephone [facility] [address] [place] [address] Milana Mata DO Nurse Triage 07/06/2025 Refill [facility] [address] [address] Milana Mata DO Type 2 diabetes mellitus without complication, without long-term current use of insulin ([facility]) 06/25/2025 Refill [facility] [address] [address] Milana Mata DO Seasonal allergic rhinitis, unspecified trigger 06/04/2025 Refill [facility] [address] [address] Milana Mata DO Chronic neck and back pain 06/02/2025 Refill [facility] [address] [address] Milana Mata DO Hyperlipidemia, unspecified hyperlipidemia type 05/27/2025 Refill [facility] [address] [address] Milana Mata DO 05/20/2025 Orders Only [facility] [place] [address] [place] [address] Milana Mata DO 05/12/2025 Orders Only [facility] [place] [address] Milana Mata DO 05/11/2025 11:00 AM EDT Office Visit [facility] [place] [address] [place] [phone] Justyn Mondragon MD Acute intractable headache, unspecified headache type (Primary Dx); Neck pain; Right facial numbness 05/11/2025 9:00 AM EDT Clinical Support [facility] [place] [address] [place] [address] Stacia Mcfarland, RN Long-term current use of opiate analgesic (Primary Dx) 05/11/2025 Refill [facility] [place] [address] [place] [address] Stacia Mcfarland, director video neck and back pain 05/11/2025 Travel 05/10/2025 Refill [facility] [address] [place] [address] Milana Mata, 05/01/2025 Telephone [facility] [address] [place] [address] Milana Mata, Results 04/30/2025 Telephone [facility] [address] [place] [address] Stacia Mcfarland RN METAL [employer]ER [employer]FFER APPRENTICE Tier level 04/23/2025 Refill [facility] [address] [place] [address] Milana Mata, 04/17/2025 Refill [facility] [address] [place] [address] Milana Mata, from Last 3 Months Immunizations Immunization Administration [...] your housing situation today? I have geneva gamaliel 04/18/[address] you li [...] Mass Index 33.28 07/09/2025 11:55 AM EDT Plan of Treatment Upcoming Encounters Date Type Department Care Team (Late st Contact Info) Description 07/28/2025 10:00 AM EDT Clinical Support [facility] [address] [place] [phone] Stacia Mcfarland, RN 08/10/2025 9:45 AM EDT Office Visit [facility] [address] [place] [phone] Heidi Nolen FNP [address] [place] [address] Health Maintenance Due Date Last Done Comments CT Colonography 1969 Dental Oral Exam 1969 Dental Prophylaxis 1969 Dental X-Ray: Full Mouth 1969 FIT DNA/Cologuard 1969 Sigmoidoscopy 1969 Diabetes: Foot Exam 1979 FIT 11/15/2024 11/15/2023 FOBT 11/15/2024 11/15/2023 SDOH Screening 04/25/2025 04/25/2024 Influenza Vaccine (#1) 2025 , 10/10/2023, 09/29/2022, Additional history exists Diabetes: Hemoglobin A1C 07/08/20252 025, 12/31/2024, 07/28/2024, Additional history exists Diabetes: Urine Protein Screening 07/28/2025 07/28/2024, 09/20/2021 Lipid Panel 07/28/2025 07/28/2024, /, 08/30/2022, Additional history exists Dental X-Ray: Bitewings 08/22/2025 08/21/2024 Eye Exam 11/26/2025 11/26/2023, 02/0 02/2024, 11/26/2023, Additional history exists Alcohol/Substance Use Screening 12/31/2025 12/31/2024 Depression Screening 12/31/2025 12/31/2024, 01/01/20 25 Disability Screening 03/20/2026 03/20/2025 Tobacco Screening 07/09/2026 07/09/2025 Colonoscopy 04/19/2028 04/19/2023 Colorectal Cancer Screening 04/19/2028 [...] EDT Mid back pain on right side RESPIRATORY ALLERGY PROFILE REGION I Routine 07/07/2025 9:24 AM EDT URINALYSIS, COMPLETE Routine 07/07/2025 9:24 AM EDT Mid back pain on right side COMPREHENSIVE METABOLIC PANEL Routine 07/07/2025 9:24 AM EDT Mid back pain on right side CBC WITH AUTO DIFFERENTIAL Routine 07/07/2025 9:24 AM EDT Mid back pain on right side C-REACTIVE PROTEIN Routine 07/07/2025 9: 24 AM EDT Routine history and physical examination of adult Essential hypertension Other hyperlipidemia Prediabetes Major depression, recurrent, chronic (CMS/HCC) Seizure disorder (CMS/HCC) Clotting disorder (CMS/HCC) Polyarthralgia Chronic abdominal pain Obstructive sleep apnea BMI 36.0-36.9,adult Encounter for immunization SED RATE BY MODIFIED WESTERGREN Routine 07/07/2025 9:24 AM EDT Routine history and physical examination of adult Essential hypertension Other hyperlipidemia Prediabetes Major depression, recurrent, chronic (CMS/HCC) Seizure disorder (CMS/HCC) Clotting disorder (CMS/HCC) Polyarthralgia Chronic abdominal pain Obstructive sleep apnea BMI 36.0-36.9,adult Encounter for immunization POCT CREATININE GFR Routine 05/12/2025 9 :10 [...] AM EDT Narrative 07/07/2025 9:39 AM EDT [address] [address] XRay Report Signed Patient: Reynaldo Ousna MR#: [id number] : 1970 Acct:[id number] Age/Sex: 55 / M ADM Date: 07/07/25 Loc: JAY Attending Dr: Chance Ortiz MD Ordering Physician: Willy Rock MD Date of Service: 07/07/25 Procedure(s): XR chest 2V Accession Number(s): [id number] cc: Milana Mata DO; Willy Rock MD [...] in OV> 07/07/25934 DD/ 9 TD/TT: 07/07/25930 Brim Rounder: Procedure Note Donotuseinterpreter, Image - 07/07/[address] [address] XRay Report Signed Patient: Reynaldo OsunaMR#: [id number] : 1970Acct:[id number] Age/Sex: 55 / MADM Date: 07/07/25 Loc: JAY Attending Dr: Chance Ortiz MD Ordering Physician: Willy Rock MD Date of Service: 07/07/25 Procedure(s): XR chest 2V Accession Number(s): [id number] cc: Milana Mata DO; Willy Rock MD [...] in OV> 07/07/2535 DD/ 9 TD/TT: 07/07/25930 Brim Rounder: Willy Rock MD IMG XR PROCEDURES Edited Result - Final * (ABNORMAL) CBC auto differential (07/07/2025 9:24 AM EDT) White Blood Count 6.6 4.8 - 10.8 X10*3/uL [facility] Red Blood Count 4.71 4.60 - 5.80 X10*6/uL [facility] Hemoglobin 12.1(L) 14.0 - 18.0 g/dl [facility] Hematocrit 38.2(L) 42.0 - 52.0 % [facility] Mean Corpuscular Volume 81.1 80.0 - 98.0 fL [facility] Mean Corpuscular Hemoglobin 25.7(L) 27.0 - 33.0 pg [facility] Mean Corpuscular HGB Conc 31.7 31.0 - 36.0 g/dl [facility] Red Cell Distribution Width 14.6 11.0 - 16.0 % [facility] Platelet Count 240 160 - 400 X10*3/uL [facility] Mean Platelet Volume 12.2 9.4 - 12.4 fL [facility] Neutrophils Percent Auto 62.1 45 - 73 % [facility] Imm Gran Pct Auto 0.2 0.0 - 0.4 % [facility] Lymphocytes Percent Auto 29.1 20 - 40 % [facility] Monocytes Percent Auto 6.7 2 - 11 % [facility] Eosinophils Percent Auto 1.4 0 - 4 % [facility] Basophils Percent Auto 0.5 0 - 2 % [facility] NRBC Pct Auto 0.0 0.0 - 0.2 /100WBC [facility] Neutrophils Absolute Auto 4.1 2.0 - 8.3 x10*3/uL [facility] Imm Gran Abs Auto 0.01 0.00 - 0.03 X10*3/uL [facility] Lymphocytes Absolute Auto 1.9 1.2 - 4.9 X10*3/uL [facility] Monocytes Absolute Auto 0.4 0.1 - 1.2 X10*3/uL [facility] Eosinophils Absolute Auto 0.1 0.0 - 0.4 X10*3/uL [facility] Basophils Absolute Auto 0.0 0.0 - 0.2 X10*3/uL [facility] NRBC Abs Auto 0.000 0.0 - 0.012 X10*3/uL [facility] Blood Venous blood specimen / Unknown 07/07/2025 9:24 AM EDT 07/07/2025 11:16 AM EDT us Willy Rock MD LAB BLOOD ORDERABLES Final Resul t [facility] [address] [place] [phone] * (ABNORMAL) Urinalysis Complete (07/07/2025 9:24 AM EDT) Color Urine Yellow [facility] Appearance Urine Turbid [facility] PH 5.5 5.0 - 9.0 [facility] Glucose Urine UA Negative Negative mg/dL [facility] Urine Blood Negative Negative [facility] Specific [place] - Urine >=1.030(H) 1.005 - 1.025 [facility] Urine Protein Negative Neg-Trace mg/dL [facility] Urine Ketones Negative Negative mg/dL [facility] Nitrite Urine Negative Negative [facility] Leukocyte Esterase Urine Negative Negative [facility] RBC Urine 0-2 0 - 2 /HPF [facility] Urine WBC 0-5 0 - 5 /HPF [facility] Urine Squamous Epithelial Cell 0-2 0 - 2 /HPF [facility] Urine Bacteria None Seen None Seen [facility] Hyaline Casts, Urine 0-2 0 - 2 /LPF [facility] Urine (Urine, Random) 07/07/2025 9:24 AM EDT 07/07/2025 12:18 PM EDT us Willy Rock MD LAB URINE ORDERABLES Final Resul t Performing Organization Address [facility] [[email or web address]] Co de Phone Number [facility] [address] [place] [phone] * (ABNORMAL) Sed Rate by Modified Lawrence (07/07/2025 9:24 AM EDT) Erythrocyte Sedimentation Rate 25(H) 0 - 15 MM/HR [facility] Comment:Patients with polycy themia and many hemoglobin abnormalitiesmay have depressed sed rates whereas patients with anemiamay have elevated sed rates. Blood Venous blood specimen / Unknown 07/07/2025 9:24 AM EDT 07/07/2025 11:16 AM EDT us Milana Mata DO LAB BLOOD ORDERABLES Final R esult Performing Organization Address City/[facility]/ZIP Co de Phone Number [facility] [address] [place] [phone] * (ABNORMAL) C-reactive Protein (07/07/2025 9:24 AM EDT) C Reactive Protein 1.04(H) < or = 0.50 mg/dL [facility] Blood Venous blood specimen / Unknown 07/07/2025 9:24 AM EDT 07/07/2025 11:20 AM EDT us Milana Mata DO LAB BLOOD ORDERABLES Final R esult [facility] [address] [place] [phone] * (ABNORMAL) Comprehensive Metabolic Panel (07/07/2025 9:24 AM EDT) Sodium 140 135 - 145 mmol/L [facility] Potassium 3.9 3.3 - 5.1 mmol/L [facility] Chloride 104 96 - 108 mmol/L [facility] Carbon Dioxide 30(H) 22 - 29 mmol/L [facility] Anion Gap 10(L) 12 - 20 [facility] Urea Nitrogen (BUN) 14 9 - 16 mg/dL [facility] Creatinine, Serum 0.78 0.5 - 1.4 mg/dL [facility] Estimated Glomerular Filt Rate >60 [facility] Comment:Chronic Kidney Disea se: Estimated GFR < 60 mL/min/1.09b1Cfcaje Kidney Disease: Estimated GFR < 15 mL/min/1.73m2 Glucose 96 60 - 115 mg/dL [facility] Calcium 9.1 8.4 - 10.2 mg/dL [facility] Bilirubin, Total 0.4 0.0 - 1.0 mg/dL [facility] Aspartate Amino Transferase 22 5 - 37 U/L [facility] Alanine Aminotransferase 23 0 - 40 U/L [facility] Total Protein 7.3 6.5 - 8.0 g/dL [facility] Albumin Level 4.4 3.5 - 5.0 g/dL [facility] Alkaline Phosphatase 103 39 - 117 U/L [facility] Blood Venous blood specimen / Unknown 07/07/2025 9:24 AM EDT 07/07/2025 11:20 AM EDT us Willy Rock MD LAB BLOOD ORDERABLES Final Resul t [facility] [address] [place] [phone] * POCT Creatinine GFR (05/12/2025 9:10 AM EDT) POCT Creatinine 0.9 0.5 - 1.4 mg/dL [facility] GFR POC >60 [facility] Comment:Chronic Kidney Disea se: Estimated GFR < 60 mL/min/1.94x4Ghnnuv Kidney Disease: Estimated GFR < 15 mL/min/1.73m2 05/12/2025 9:10 AM EDT 05/13/2025 8:13 AM EDT Narrative [facility] - 05/13/2025 8:14 AM EDT [id number] Milana Mata DO LAB POINT OF CARE TEST DOCKE D DEVICE ORDERABLES Final Result Performing Organization Address [facility] [[email or web address]] Co de Phone Number [facility] [address] [place] [phone] * CT Chest w/ Contrast (05/12/2025 9:09 AM EDT) Anatomical Region Laterality Modality Body, Chest Computed Tomogra phy 05/12/2025 9:09 AM EDT Narrative 05/12/2025 9:56 AM EDT [address] [address] [address] Scan Report Signed Patient: Reynaldo Osuna MR#: [id number] : 1970 Acct:[id number] Age/Sex: 55 / M ADM Date: 05/12/25 Loc: HO.CT Attending Dr: Milana Mata DO Ordering Physician: Milana Mata DO Date of Service: 05/12/25 Procedure(s): CT chest w IV con Accession Number(s): [id number] cc: Milana Mata DO Report Number: [id number]: Total DLP = 197.00 mGy-cm EXAMINATION: CT [...] reconstruction technique DLP: 197 mGy centimeter. FINDINGS: ADMINISTRATIVE OFFICE MANAGER: No hyperinflation. Cardiomediastinal silhouette size is normal. [...] Jiménez MD in OV> 05/12/25 0953 DD/ TD/TT: 05/12/2535 Brim Rounder: Procedure Note Donotuseinterpreter, Image - 05/12/[address] [place] [address] [address] Scan Report Signed Patient: Patrick Osuna#: [id number] : 1970Acct:[id number] Age/Sex: 55 / MADM Date: 05/12/25 Loc: HO.CT Attending Dr: Milana Mata DO Ordering Physician: Milana Mata DO Date of Service: 05/12/25 Procedure(s): CT chest w IV con Accession Number(s): [id number] cc: Milana Mata DO Report Number: [id number]: Total DLP = 197.00 mGy-cm EXAMINATION: CT [...] reconstruction technique DLP: 197 mGy centimeter. FINDINGS: ADMINISTRATIVE OFFICE MANAGER: No hyperinflation. Cardiomediastinal silhouette size is normal. [...] Saurabh Dejesus MD 05/12/2025 09:53 AM EDT Dictated By: Saurabh Pena MD Signed By: <Electronically signed by Saurabh Jiménez MDin OV> 05/12/25 0953 DD/ TD/TT: 05/12/2535 Brim Rounder: us Milana Mata DO IMG CT PROCEDURES Final Resu lt * POCT ABILIO-14 Urine Drug Screen (05/11/2025 9:24 AM EDT) Pathologist [facility] THC Negative Negative Cocaine Screen, Urine Negative [...] - 05/11/2025 9:24 AM EDT UTOX cup Lot#[id number] Exp. 07/28/26 Internal Pass Control Milana Banuelosreymundo POINT OF CARE TEST ENTER/MITZI T ORDERABLES Final Result * (ABNORMAL) POCT HGB A1C (01/05/2025 12:26 PM EDT) [facility] Hemoglobin A1C 6.4(A) 4.0 - 6.0 % QC Media Lot # [id number] Lot# Expiration Date ,282 Blood 01/05/2025 12:2 6 PM EDT Milana Mata POINT OF CARE TEST ENTER/MITZI T ORDERABLES Final Result * Hepatitis C Antibody with Reflex to HCV, RNA, Quantitative, Real-Time PCR (07/28/2024 10:21 AM EDT) Pathologist [facility] Hepatitis C Antibody Nonreactive Nonreactive [facility] Comment:Antibodies to HCV no t detected; does not exclude early acuteHCV infection. Blood Venous blood specimen / Unknown 07/28/2024 10:21 AM EDT 07/28/2024 11:15 AM EDT Milana Adolfo DO LAB BLOOD ORDERABLES Final R esult Performing Organization Address [facility] [[email or web address]] Co de Phone Number [facility] [address] [place] [phone] * HIV-1/2 Antigen and Antibodies, Fourth Generation, with Reflexes (07/28/2024 10:21 AM EDT) HIV AB/AG Nonreactive Nonreactive [facility] Comment:HIV-1 p24 Ag and/or HIV-1/HIV-2 Ab not detected.A test result that is nonreactive does not exclude thepossibility of exposure to or infection with HIV-1 and/orHIV-2. Nonreactive results in this assay for individualswith prior exposure to HIV-1 and/or HIV-2 may be due toantigen and antibody levels that are below the limit ofdetection of this assay.The [employer] HIV Ag/Ab Combo assay result andsupplemental assay results should be interpreted inconjunction with the patient's clinical presentation,history and other laboratory results. If the results areinconsistent with clinical evidence, additional testing issuggested to confirm the result. Blood Venous blood specimen / Unknown 07/28/2024 10:21 AM EDT 07/28/2024 11:15 AM EDT us Milana Adolfo DO LAB BLOOD ORDERABLES Final R esult Performing Organization Address [facility] [[email or web address]] Co de Phone Number [facility] [address] [place] [phone] * (ABNORMAL) Lipid Panel, Standard (07/28/2024 10:21 AM EDT) Triglycerides 116 <150 mg/dL [facility] Comment:Desirable Triglyceri de: less than 150 mg/dLBorderline High Triglyceride 150-199 mg/dLHigh Triglyceride: 200-499 mg/dLVery High Triglyceride: greater than or equal to 5OO mg/dL Cholesterol 127 <200 mg/dL [facility] Comment:Desirable Cholestero l: less than 200 mg/dLBorderline High Cholesterol: 200-239 mg/dLHigh Cholesterol: greater than 239 mg/dL LDL Cholesterol Calculated 67 <100 mg/dL [facility] Comment:Desirable LDL: less than 100 mg/dLNear Optimal/Above Optimal LDL: 110- 129 mg/dLBorderline High LDL: 130-159 mg/dLHigh LDL: 160-189 mg/dLVery High LDL: greater than or equal to 190 mg/dL HDL Cholesterol 37(L) >40 mg/dL [facility] Comment:Desirable HDL: great er than 40 mg/dL Note: This HDL assay may give artificially low results in patients with liver disease. Blood Venous blood specimen / Unknown 07/28/2024 10:21 AM EDT 07/28/2024 10:55 AM EDT us Milana Mata DO LAB BLOOD ORDERABLES Final R esult Performing Organization Address [facility] [[email or web address]] Co de Phone Number [facility] [address] [place] [phone] * Albumin, Random Urine W/Creatinine (07/28/2024 10:13 AM EDT) Creatinine, Urine 102.76 mg/dL [facility] Microalbumin Urine <5.0 mg/L [facility] Microalbum Creatinine Ratio Ur TNP <30 ug/mg cr [facility] Comment:Unable to calculate albumin/creatinine ratio due to lowmicroalbumin or creatinine result. Urine (Urine, Random) 07/28/2024 10:13 AM EDT 07/28/2024 10:55 AM EDT us Milana Mata DO LAB URINE ORDERABLES Final R esult Performing Organization Address [facility] [[email or web address]] Co de Phone Number [facility] [address] [place] [phone] * (ABNORMAL) Fecal Globin by Immunochemistry (11/15/2023 9:03 AM EST) Fecal Globin By Immunochemistry SEE NOTE(A) [facility] Comment:FECAL GLOBIN BY IMMU NOCHEMISTRY Micro Number: [id number] Test Status: Final Specimen Source: Not given Specimen Quality: Adequate Fecal Globin: DetectedTHIS TEST WAS PERFORMED AT:[employer] [place] [phone] VILLALPANDO MD Stool Rectal contents / Unknown 11/15/2023 9:03 AM EST 11/15/2023 12:27 PM EST Fátima Bridges G[employer]INE [employer] CR[employer] OPERATOR LAB BODY FLUIDS AND STOOLS ORD ERABLES Final Result [facility] [address] [place] [phone] * Colonoscopy (04/19/2023 2:32 PM EDT) Colonoscopy Normal Normal Comment:Repeat in 5 years Historical Provider HEALTH MAINTENANCE Final Result from Last 3 Months or Most Recently Relevant to Health Maintenance Insurance [facility] ST[facility] AD[facility] Care Teams Food And Nutrition Services Assistant Relationship Specialty Start Date End Date Milana Mata DO [address] [place] [address] PCP - General Family Medicine 07/02/24
--- OUTSIDE RECORDS SUMMARY | 2025-07-10 09:41 | XMS_ITS | Patient Health Record ---
Author Organization [facility] Address [address] [place] [address] Care Team Providers Care Color Worker Name Role Phone Milana Mata M.D. Primary Care Provider Raphael Cortes Jr Unavailable Allergies Allergen (clinical drug ingredient) Drug/Non Drug Allergy documented on EMR Reaction Allergy Type Onset Date Status Penicillin Unknown Drug Allergy Active Results Component Value Reference Range Notes Complete Blood Count no Diff Reviewed date:01/06/2025 01:45:38 PM Interpretation: Performing Lab:[address] [phone] Notes/Report: White Blood Count 6.3 4.8-10.8 X10*3/uL [...] Panel Reviewed date:01/06/2025 01:45:32 PM Interpretation: Performing Lab:[address] [id number] Notes/Report: Bilirubin Total 0.3 0.0-1.0 mg/dL Bilirubin Direct 0.1 0.0-0.5 mg/dL Aspartate Amino Transferase 24 5-37 U/L Alanine Aminotransferase 20 0-40 U/L Total Protein 8.1 6.5-8.0 g/dL Albumin Level 4.3 3.5-5.0 g/dL Alkaline Phosphatase 99 39-117 U/L Blood Urea Nitrogen Reviewed date:01/06/2025 01:45:29 PM Interpretation: Performing Lab:[address] [id number] Notes/Report: Blood Urea Nitrogen 13 9-16 mg/dL Creatinine Reviewed date:01/06/2025 01:45:24 PM Interpretation: Performing Lab:[address] [id number] Notes/Report: Creatinine 0.78 0.5-1.4 mg/dL Estimated Glomerular Filt Rate > 60 Chronic Kidney Disease: Estimated GFR < 60 mL/min/1.73m2 Severe Kidney Disease: Estimated GFR < 15 mL/min/1.73m2 Lipase Reviewed date:01/06/2025 01:45:19 PM Interpretation: Performing Lab:[address] [address] Notes/Report: Lipase 20 8-78 U/L CT abdomen pelvis w con Reviewed date:01/06/2025 01:45:13 PM Interpretation: Performing Lab: Notes/Report: [address] [address] [address] Scan Report Signed Patient: Reynaldo Osuna MR#: [id number] : 1970 Acct:[id number] Age/Sex: 54 / M ADM Date: 01/06/25 Loc: HO.CT Attending Dr: Raphael Powell MD Ordering Physician: Raphael Powell MD Date of Service: 01/06/25 Procedure(s): CT abdomen pelvis w IV con Accession Number(s): [id number] cc: Raphael Powell MD; Milana Mata DO Report Number: [id number]: Total DLP = 565.00 mGy-cm EXAMINATION: CT [...] 01/06/25 1134 DD/ 1004 TD/TT: 01/06/25 1035 Paving Plant Operator: Reason For Referral Referring Provider First Name Milana Referring Provider Last Name Adolfo Referred Organization [facility] Referred Provider Raphael Powell Jr Referred Address [address] [place] [address],[place] [address],[place], [place],[address], Referred Provider Specialty Gastroentero logy General Notes Katherine Kraus 2024 02:11:14 PM >requested [facility] referral from [facility] [phone] Referral Priority Routine Medications Medication SIG (Take, [...] Problem Status W/U Status Risk Notes Problem 4604192 Diverticulitis o f large intestine without perforation or abscess without bleeding (K57.32) Active confirmed Problem 978649931 Generalized abdominal pain (R10.84) Active confirmed Problem 915996739 Diverticulitis (K57.92) Active confirmed Problem 631857645 Family history o f colon cancer (Z80.0) Active confirmed Problem 901646304 Acute diverticulitis (K57.92) Active confirmed Problem Gastroesophageal reflux disease (120468140) GERD without esophagitis (K21.9) Active confirmed Problem 47780800 Hypertension, unspecified type (I10) Active confirmed Problem 726794768 Gas bloat syndrome (K92.89) Active confirmed Vital Signs Temperature 98.7 degrees Fahrenheit 05/13/2025 Blood pressure diastolic 01 mm Hg 05/13/2025 Height 65 in 05/13/2025 Blood pressure systolic 001 mm Hg 05/13/2025 Weight 200.6 lbs 05/13/2025 BMI 33.38 kg/m2 05/13/2025 Encounters Encounter Location Date Provider Diagnosis [facility] [address] [place] [phone] 11/12/2024 Raphael Powell Jr Generalized abdominal pain R10.84 [facility] [address] [place] [phone] 05/13/2025 Raphael Powell Jr GERD without esophagitis K21.9 ; Family history of colon cancer Z80.0 and Diverticulitis of large intestine without perforation or abscess without bleeding K57.32 [facility] [address] [place] [address] 07/21/2024 Raphael Powell Jr [facility] [address] [place] [address] 01/06/2025 Raphael Powell Jr Assessments Encounter Date [...] we will get his records from [facility] where he had sigmoid resection. 05/13/2025 Family [...] Name:Raphael yi , 05/17/2026 09:20:00 AM, [address], [address], [place], [address], Insurance Providers Payer Name Payer Address Payer Phone Subscriber Number Group Number Insured Name Patient Relationship to Insured Coverage Start Date Coverage End Date [facility] [address] [place] [address] [id number] REYNALDO SOARES Self - patient is the [...]
--- OUTSIDE RECORDS SUMMARY | 2025-07-10 09:41 | XMS_ITS | Encounter Summary ---
Author Organization [email or web address] Address [address] 7t [place] [address] Care Team Providers Care Healthcare Insurance Sales Agent Name Role Phone Milana Mata DO Primary Care Provider + [phone] Reason for Visit * Reason Onset Date Comments Nurse Triage 07/06/2025 Encounter Details Date Type Department Care Team ([facility] st Contact Info) Description 07/06/2025 Telephone [facility] MEDICINE [address] [place] [address] Milana Mata DO [address] [place] [address] Nurse Triage Social History Tobacco Use Types [...] 07/06/2025 4:12 PM EDT Called pt. Via [employer] [address] Jerry. Pt. States that he was getting [...] hurt back. Advised pt. To go to [facility] at [address] as walk in is full [...] Reason: Caller denied all higher acuity questions Hong Konger speaking documented in this encounter Plan of Treatment Upcoming Encounters Date Type Department Care Team (Late st Contact Info) Description 07/28/2025 10:00 AM EDT Clinical Support [facility] MEDICINE [address] [place] [address] Stacia Mcfarland RN 08/10/2025 9:45 AM EDT Office Visit [facility] MEDICINE [address] [place] [address] Heidi Nolen FNP [address] [place] [address] documented as of this encounter Visit Diagnoses Not on filedocumented in this encounter Additional Health Concerns Assessment Noted Time PHQ-9 Depression Total Score: 0 01/01/20 25 10:51 AM EDT documented as of this encounter Care Teams Healthcare Insurance Sales Agent Relationship Specialty Start Date End Date Milana Mata DO [address] [place] [address] PCP - General Family Medicine 07/02/24 documented as of this encounter
--- OUTSIDE RECORDS SUMMARY | 2025-07-10 09:41 | XMS_ITS | Encounter Summary ---
Author Organization [employer] Address [address] [facility] 7t [place] [address] Care Team Providers Care Waterworks Pump Station Operator Name Role Phone AdolfoMilana Primary Care Provider [phone] Encounter Details Date Type Department Care Team ([facility] st Contact Info) Description 07/07/2025 Orders Only GENERIC EXTERNAL DATA DEPARTMENT [...] Description 07/28/2025 10:00 AM EDT Clinical Support [facility] MEDICINE [address] [place] [address] Stacia Mcfarland RN 08/10/2025 9:45 AM EDT Office Visit [facility] MEDICINE [address] [place] [address] [place] SpringsHeidi hawkins FNP [address] [place] [address] Pending Results Name Type Priority Associated Diagnoses Date /Time Respiratory Allergy Profile Region I Lab Routine 07/07/2025 9:24 AM EDT documented as of this encounter Procedures Procedure Name Priority Date/Time Associated Diagnosis Comments RESPIRATORY ALLERGY PROFILE REGION I Routine 07/07/2025 9:24 AM EDT documented in this encounter Visit Diagnoses Not on filedocumented in this encounter Additional Health Concerns Assessment Noted Time PHQ-9 Depression Total Score: 0 01/01/20 25 10:51 AM EDT documented as of this encounter Care Teams Waterworks Pump Station Operator Relationship Specialty Start Date End Date Milana Mata DO [address] [place] [address] PCP - General Family Medicine 07/02/24 documented as of this encounter
--- OUTSIDE RECORDS SUMMARY | 2025-07-10 09:41 | XMS_ITS | Encounter Summary ---
Author Organization [employer] Address [address] [facility] 7t [place] [address] Care Team Providers Care Line Producer Name Role Phone Milana Mata DO Primary Care Provider + [phone] Reason for Visit * Reason Onset Date Comments Results 07/07/2025 Encounter Details Date Type Department Care Team ([facility] st Contact Info) Description 07/07/2025 Telephone [facility] MEDICINE [address] [place] [address] Milana Mata DO 230 [place] [address] Results Social History Tobacco Use Types Packs/Day [...] encounter Miscellaneous Notes * Telephone Encounter - Kisha Stover RN - 07/08/2025 9:[address] Rock called pt today and discussed results. No further action needed. * Telephone Encounter - Bharath Plasencia - 07/07/2025 4:10 PM EDT TC from pt was seen by ANDREINA Rock today at [facility] . Had Labs and Xray done . Pt is requesting lab and x-ray results. documented in this encounter Plan of Treatment Upcoming Encounters Date Type Department Care Team (Late st Contact Info) Description 07/28/2025 10:00 AM EDT Clinical Support [facility] MEDICINE [address] [place] [address] Stcaia Mcfarland, RN 08/10/2025 9:45 AM EDT Office Visit [facility]INE [address] [place] [address] North BranchHeidi, HANDBAG OPERATOR [address] [place] [address] documented as of this encounter Visit Diagnoses Not on filedocumented in this encounter Additional Health Concerns Assessment Noted Time PHQ-9 Depression Total Score: 0 01/01/20 25 10:51 AM EDT documented as of this encounter Care Teams Line Producer Relationship Specialty Start Date End Date Milana Mata DO 230 [place] [address] PCP - General Family Medicine 07/02/24 documented as of this encounter
--- OUTSIDE RECORDS SUMMARY | 2025-07-10 09:41 | XMS_ITS | Encounter Summary ---
Author Organization [employer] Address [address] [place] [address] 7t [place] [address] Care Team Providers Care Aviation Safety Inspector Name Role Phone Jose M Campbell VERONICA Primary Care Provider Unavail Sandra Mercado Primary Care Provider + Daniel Krause MD Primary Care Provider [phone] Milana Mata DO Primary Care Provider + Reason for Visit * Reason Comments Med Refill Encounter Details Date Type Department Care Team ([facility] st Contact Info) Description 04/05/2023 Refill [facility] [address] [place], [place] [phone] Evie Francisco MD [address] [place] [address] Allergic rhinitis, unspecified seasonality, unspecified trigger Social [...] Description 07/28/2025 10:00 AM EDT Clinical Support [facility] [place] [address] Stacia Mcfarland, RN 08/10/2025 9:45 AM EDT Office Visit [facility] [address] Heidi Nolen FNP 230 [place] [address] documented as of this encounter Visit Diagnoses Diagnosis Allergic rhinitis, unspecified seasonality, unspecified trigger documented in this encounter Additional Health Concerns Assessment Noted Time PHQ-9 Depression Total Score: 12 023 2:23 PM EDT documented as of this encounter Care Teams Aviation Safety Inspector Relationship Specialty Start Date End Date Campbell Salguero AGNP PCP - General Family Medicine 09/25/22 07/05/23 Sandra De Jesus FNP [address] [place] [address] PCP - General Family Medicine 07/06/23 06/23/24 Daniel Krause MD [address] [place] [address] PCP - General Internal Medicine 06/24/24 07/01/24 Milana Mata DO [address] [place] [address] PCP - General Family Medicine 07/02/24 documented as of this encounter
--- OUTSIDE RECORDS SUMMARY | 2025-07-10 09:41 | XMS_ITS | Encounter Summary ---
Author Organization [employer] Address [address] [facility] 7t [place] [address] Care Team Providers Care Critical Care Physician Assistant Name Role Phone Adolfo Milana Primary Care Provider + [phone] Reason for Visit * Reason Comments Med Refill Encounter Details Date Type Department Care Team ([facility] st Contact Info) Description 09/04/2024 Refill [facility] [address] [place] [address] Sandra De Jesus FNP [address] [place] [address] Allergic rhinitis due to other allergic trigger, [...] Description 07/28/2025 10:00 AM EDT Clinical Support [facility] [address] [place] [address] Stacia Mcfarland, RN 08/10/2025 9:45 AM EDT Office Visit [facility] [address] [place] [address] Heidi Nolen FNP [address] [place] [address] documented as of this encounter Visit Diagnoses Diagnosis Allergic rhinitis due to other allergic trigger, unspecified seasonality documented in this encounter Additional Health Concerns Assessment Noted Time PHQ-9 Depression Total Score: 8 11/15/19 9:20 AM EST documented as of this encounter Care Teams Critical Care Physician Assistant Relationship Specialty Start Date End Date Milana Mata DO [address] [place] [address] PCP - General Family Medicine 07/02/24 documented as of this encounter
--- OUTSIDE RECORDS SUMMARY | 2025-07-10 09:41 | XMS_ITS | Encounter Summary ---
Author Organization [employer] Address [address] [place] [address] 7t [place] [address] Care Team Providers Care Fan Installer Name Role Phone Campbell Salguero Primary Care Provider Unavail Sandra Mercado Primary Care Provider + NameDaniel MD Primary Care Provider [phone] Milana Mata DO Primary Care Provider [phone] Reason for Visit * Reason Onset Date Comments Nurse Triage 05/28/2023 Encounter Details Date Type Department Care Team (Late st Contact Info) Description 05/28/2023 Telephone [facility] [address] [place] [address] Campbell Salguero AGNP Nurse Triage Social History [...] 9:23 AM EDT Call to Pt with [employer] Manager [place] [id number] Pt is given message from EVIN Salguero, [...] EDT Triage call Pt gives permission for BLOCK SAWYER, Lissett, to speak for Pt. PT was [...] accepted this outcome Please contact lissett at [phone] documented in this encounter Plan of Treatment Upcoming Encounters Date Type Department Care Team (Late st Contact Info) Description 07/28/2025 10:00 AM EDT Clinical Support [address] [address] Stacia Mcfarland, RN 08/10/2025 9:45 AM EDT Office Visit [address] [address] Heidi Nolen FNP 230 [place] [address] documented as of this encounter Visit Diagnoses Diagnosis Benign prostatic hyperplasia with incomplete bladder emptying- Primary documented in this encounter Additional Health Concerns Assessment Noted Time PHQ-9 Depression Total Score: 12 023 2:23 PM EDT documented as of this encounter Care Teams Fan Installer Relationship Specialty Start Date End Date Campbell Salguero AGNP PCP - General Family Medicine 09/25/22 07/05/23 [place] [address] PCP - General Family Medicine 07/06/23 06/23/24 Daniel Krause MD [address] [place] [address] PCP - General Internal Medicine 06/24/24 07/01/24 Milana Mata DO [address] [place] [phone] PCP - General Family Medicine 07/02/24 documented as of this encounter
--- OUTSIDE RECORDS SUMMARY | 2025-07-10 09:41 | XMS_ITS | Encounter Summary ---
Author Organization [employer] Address [address] [facility] 7t [place] [address] Care Team Providers Care Algebraist Name Role Phone Campbell Salguero Primary Care Provider Unavail Sandra Mercado Primary Care Provider + Daniel Krause MD Primary Care Provider [phone] Milana Mata DO Primary Care Provider [phone] Encounter Details Date Type Department Care Team ([facility] Contact Info) Description 04/25/2023 Telephone [facility] MEDICINE [address] [place] [address] Earlene Lange LPN Social History Tobacco Use [...] Upcoming Encounters Date Type Department Care Team ([facility] Contact Info) Description 07/28/2025 10:00 AM EDT Clinical Support [facility] [place] [address] Stacia Mcfarland, RN 08/10/2025 9:45 AM EDT Office Visit [facility] [place] [place] [address] Heidi Nolen FNP [address] [place] [address] documented as of this encounter Visit Diagnoses Not on filedocumented in this encounter Additional Health Concerns Assessment Noted Time PHQ-9 Depression Total Score: 12 023 2:23 PM EDT documented as of this encounter Care Teams Algebraist Relationship Specialty Start Date End Date Campbell Salguero AGNP PCP - General Family Medicine 09/25/22 07/05/23 Sandra [place] [address] PCP - General Family Medicine 07/06/23 06/23/24 Daniel Krause MD [address] [place] [address] PCP - General Internal Medicine 06/24/24 07/01/24 Milana Mata DO [address] [place] [address] PCP - General Family Medicine 07/02/24 documented as of this encounter
--- OUTSIDE RECORDS SUMMARY | 2025-07-10 09:41 | XMS_ITS | Encounter Summary ---
Author Organization [employer] Address [address] [facility] 7t [place] [address] Care Team Providers Care Health And Fitness Professor Name Role Phone VinMilana dwyer Primary Care Provider [phone] Encounter Details Date Type Department Care Team (Latest Contact Info) Description 07/09/2025 Travel Social History Tobacco Use Types Packs/Day [...] Description 07/28/2025 10:00 AM EDT Clinical Support [facility] MEDICINE [address] [place] [address] Stacia Mcfarland RN 08/10/2025 9:45 AM EDT Office Visit [facility] MEDICINE [address] [place] [address] VistaHeidi FNP 230 [place] [address] documented as of this encounter Visit Diagnoses Not on filedocumented in this encounter Additional Health Concerns Assessment Noted Time PHQ-9 Depression Total Score: 0 01/01/20 25 10:51 AM EDT documented as of this encounter Care Teams Health And Fitness Professor Relationship Specialty Start Date End Date Milana Mata DO [address] [place] [address] PCP - General Family Medicine 07/02/24 documented as of this encounter
--- OUTSIDE RECORDS SUMMARY | 2025-07-10 09:41 | XMS_ITS | Encounter Summary ---
Author Organization [employer] Address [address] [place] [address] 7t [place] [address] Care Team Providers Care Shot Core Drill Operator Helper Name Role Phone oJse M Campbell VERONICA Primary Care Provider Unavail Sandra Mercado Primary Care Provider [phone] NameDaniel MD Primary Care Provider [phone] Milana Mata DO Primary Care Provider + [phone] Reason for Visit * Reason Comments Med Refill Encounter Details Date Type Department Care Team (Late Contact Info) Description 07/04/2023 Refill [facility] MEDICINE [address] [place] [address] Name, MD Daniel [address] [place] [address] Social History Tobacco Use Types Packs/Day Years [...] 10:00 AM EDT Clinical Support [facility] MEDICINE [address] [place] [address] Stacia Mcfarland, RN 08/10/2025 9:45 AM EDT Office Visit [facility] MEDICINE [address] [place] [address] Heidi Nolen FNP [address] [place] [address] documented as of this encounter Visit Diagnoses Not on filedocumented in this encounter Additional Health Concerns Assessment Noted Time PHQ-9 Depression Total Score: 12 023 2:23 PM EDT documented as of this encounter Care Teams Shot Core Drill Operator Helper Relationship Specialty Start Date End Date Campbell Salguero AGNP PCP - General Family Medicine 09/25/22 07/05/23 Sandra De Jesus FNP [address] [place] [address] PCP - General Family Medicine 07/06/23 06/23/24 Daniel Krause MD [address] [place] [address] PCP - General Internal Medicine 06/24/24 07/01/24 Milana Mata DO [address] [place] [address] PCP - General Family Medicine 07/02/24 documented as of this encounter
--- OUTSIDE RECORDS SUMMARY | 2025-07-10 09:41 | XMS_ITS | Encounter Summary ---
Author Organization [employer] Address [address] [facility] 7t [place] [address] Care Team Providers Care Freezing Machine Operator Name Role Phone VinMilana dwyer Primary Care Provider [phone] Encounter Details Date Type Department Care Team [...] 10:00 AM EDT Clinical Support [facility] [address] [place] [address] Stacia Mcfarland RN 08/10/2025 9:45 AM EDT Office Visit [facility] [address] [place] [address] HildaleHeidi FNP [address] [place] [address] documented as of this encounter Visit Diagnoses Not on filedocumented in this encounter Additional Health Concerns Assessment Noted Time PHQ-9 Depression Total Score: 0 01/01/20 25 10:51 AM EDT documented as of this encounter Care Teams Freezing Machine Operator Relationship Specialty Start Date End Date Milana Mata DO [address] [place] [address] PCP - General Family Medicine 07/02/24 documented as of this encounter
--- OUTSIDE RECORDS SUMMARY | 2025-07-10 09:41 | XMS_ITS | Encounter Summary ---
Author Organization [employer] Address [address] [facility] [address] [facility] [address] 7t [place] [address] Care Team Providers Care Cylinder Press Feeder Name Role Phone Milana Mata DO Primary Care Provider + [phone] Encounter Details Date Type Department Care Team ([facility] st Contact Info) Description 05/20/[address] [facility] MEDICINE [address] [place] [address] Milana Mata DO [address] [place] [address] Social History Tobacco Use Types Packs/Day Years [...] 07/28/2025 10:00 AM EDT Clinical Support [facility] [address] [place] [address] Stacia Mcfarland, RAN 08/10/2025 9:45 AM EDT Office Visit [facility] [address] [place] [address] [facility] [address] [place] [address] documented as of this encounter Visit Diagnoses Not on filedocumented in this encounter Additional Health Concerns Assessment Noted Time PHQ-9 Depression Total Score: 0 01/01/20 25 10:51 AM EDT documented as of this encounter Care Teams Cylinder Press Feeder Relationship Specialty Start Date End Date Milana Mata DO [address] [place] [address] PCP - General Family Medicine 07/02/24 documented as of this encounter
--- OUTSIDE RECORDS SUMMARY | 2025-07-10 09:41 | XMS_ITS | Encounter Summary ---
Author Organization [employer] Address 75 [facility] 7t [place] [address] Care Team Providers Care Cutting Machine Operator Name Role Phone Milana Mata DO Primary Care Provider + [phone] Reason for Visit * Reason Comments Med Refill Encounter Details Date Type Department Care Team ([facility] st Contact Info) Description 07/10/2025 Refill [facility] [address] [place] [address] Milana Mata DO 230 [place] [address] Chronic neck and back pain Social History [...] 10:00 AM EDT Clinical Support [facility] [address] [place] [address] Stacia Mcfarland, RN 08/10/2025 9:45 AM EDT Office Visit [facility] [address] [place] [address] Heidi Nolen FNP [address] [place] [address] documented as of this encounter Visit Diagnoses Diagnosis Chronic neck and back pain documented in this encounter Additional Health Concerns Assessment Noted Time PHQ-9 Depression Total Score: 0 01/01/20 25 10:51 AM EDT documented as of this encounter Care Teams Cutting Machine Operator Relationship Specialty Start Date End Date Milana Mata DO [address] [place] [address] PCP - General Family Medicine 07/02/24 documented as of this encounter
--- OUTSIDE RECORDS SUMMARY | 2025-07-10 09:41 | XMS_ITS | Encounter Summary ---
Author Organization [employer] Address 75 [facility] 7t [place] [address] Care Team Providers Care Tire Mold Engraver Name Role Phone AdolfoMilana Primary Care Provider + [phone] Encounter Details Date Type Department Care Team (Latest Contact Info) Description 07/08/2025 Results Follow-Up [facility] MED[facility]INE 230 [place] [address] Willy Rock MD 230 [place] [address] CBC auto differential, Comprehensive Metabolic Panel, Urinalysis Complete, XR Chest 2 Views Social History Tobacco Use Types Packs/Day Years [...] Description 07/28/2025 10:00 AM EDT Clinical Support [facility] [address] [place] [address] Stacia Mcfarland, RN 08/10/2025 9:45 AM EDT Office Visit [facility] [address] [place] [address] Heidi Nolen FNP 230 [place] [address] documented as of this encounter Visit Diagnoses Not on filedocumented in this encounter Additional Health Concerns Assessment Noted Time PHQ-9 Depression Total Score: 0 01/01/20 25 10:51 AM EDT documented as of this encounter Care Teams Tire Mold Engraver Relationship Specialty Start Date End Date Milana Mata DO [address] [place] [address] PCP - General Family Medicine 07/02/24 documented as of this encounter
--- OUTSIDE RECORDS SUMMARY | 2025-07-10 09:41 | XMS_ITS | Clinical Summary ---
Author Organization [facility] Address [id number] [place] [address] Phone Care Team Providers Care Water Pipe Installer Name Role Phone Christiana Campbell MD Primary [...] EDT) SODIUM 140 133 - 146 mmol/L [facility] CHLORIDE 102 96 - 108 mmol/L [facility] POTASSIUM 4.4 3.3 - 5.1 mmol/L [facility] CO2 25 21 - 35 mmol/L [facility] BUN 19 6 - 19 mg/dL [facility] CREATININE 1.00 0.5 - 1.5 mg/dL [facility] GLUCOSE 146(H) 70 - 99 mg/dL [facility] CALCIUM 8.9 8.4 - 10.3 mg/dL [facility] EGFR 89 >59 mL/min/1.7 3m2 [facility] Comment:Estimated glomerular filtration rate calculated using the CKD-EPI refit equation. ANION GAP 17 10 - 20 mmol/L [facility] Blood 02/14/2023 5:33 AM EDT 02/14/2023 5:52 AM EDT us Tierra Pollock MD LAB BLOOD ORDERABLES Final R esult [facility] [address] [place] [address] from Last 3 Months or Most Recently Relevant to Health Maintenance Insurance [employer] ACO [address] [place] [address] [address] [place] [address] [employer] Advance Directives For more information, please contact: [phone] (9AM - 5PM [facility], Sunday-Sunday) * Full Code (Latest Code [...] Code Status Confirmed With: Patient Care Teams Water Pipe Installer Relationship Specialty Start Date End Date Christiana Campbell MD PCP - General Internal Medicine 09/27/22 Additional Source Comments The information contained in this document represents components of the legal health record. It is not the complete legal health record.[facility]
--- OUTSIDE RECORDS SUMMARY | 2025-07-10 09:41 | XMS_ITS | Encounter Summary ---
Author Organization [employer] Address 75 [facility] 7t [place] [address] Care Team Providers Care Electrical Tech/Project Manager Name Role Phone Milana Mata DO Primary Care Provider + [phone] Reason for Visit * Reason Onset Date Comments Appointment Request 07/09/2025 Encounter Details Date Type Department Care Team ([facility] st Contact Info) Description 07/09/2025 Telephone [facility]INE 230 [place], [place] [phone] Milana Mata DO 230 [place] [address] Appointment Request Social History Tobacco Use Types Packs/Day Years [...] encounter Miscellaneous Notes * Telephone Encounter - Yinka Melendez MA - 07/09/2025 9:26 AM EDT Pt has been schedule for today at 11:15 am in green team pt has been informed of appt * Telephone Encounter - Norma Cleary RN - 07/09/2025 9:24 AM EDT [place] contact patient in regards to below message. Patient reported no improvement in pain since [facility] visit on 07/06/25. Patient reports he cannot take NSAID's and warm compresses are not helpful. Patientrequested to be re-evaluated. Patient scheduled for an appointment today at 11:15am. Patient to f/uPRN. * Telephone Encounter - Shaista Mcguire - 07/09/2025 8:56 AM EDT Tc from pt Spouse requesting an following appt deu to recent visit on 07/06. (Spouse not on HIPAA) Contact pt at [phone] documented in this encounter Plan of Treatment Upcoming Encounters Date Type Department Care Team (Late st Contact Info) Description 07/28/2025 10:00 AM EDT Clinical Support [address] [address] Stacia Mcfarland, RN 08/10/2025 9:45 AM EDT Office Visit [facility] [address] [place] [address] Heidi Nolen FNP 230 [place] [address] documented as of this encounter Visit Diagnoses Not on filedocumented in this encounter Additional Health Concerns Assessment Noted Time PHQ-9 Depression Total Score: 0 01/01/20 25 10:51 AM EDT documented as of this encounter Care Teams Electrical Tech/Project Manager Relationship Specialty Start Date End Date Milana Mata DO [address] [place] [address] PCP - General Family Medicine 07/02/24 documented as of this encounter
[2025-07-10 11:29] LABS: MANUAL DIFF FLAG NO
[2025-07-10 11:34] LABS: Hematocrit 37.9 % (42.0-52.0); Hemoglobin 12.3 g/dl (14.0-18.0); Imm Gran Abs Auto 0.02 X10*3/uL (0.00-0.03); Imm Gran Pct Auto 0.3 % (0.0-0.4); Lymphocytes Absolute Auto 1.8 X10*3/uL (1.2-4.9); Mean Corpuscular HGB Conc 32.5 g/dl (31.0-36.0); Mean Corpuscular Hemoglobin 26.1 pg (27.0-33.0); Mean Corpuscular Volume 80.5 fL (80.0-98.0); NRBC Abs Auto 0.000 X10*3/uL (0.0-0.012); NRBC Pct Auto 0.0 /100WBC (0.0-0.2); Platelet Count 247 X10*3/uL (160-400); Red Blood Count 4.71 X10*6/uL (4.60-5.80); White Blood Count 6.6 X10*3/uL (4.8-10.8)
[2025-07-10 11:42] LABS: D Dimer High Sensitivity < 150 NG/ML
== END 2025-07-10 08:57 | disposition home or self-care (01) ==
LOC: HO.HHCL 08:56
PROVIDERS: PCP Family Medicine; Referring Provider Student in an Organized Health Care Education/Training Program; Visit Provider Hospitalist
DX: T78.40XA Allergy, unspecified, initial encounter (principal); M54.9 Dorsalgia, unspecified; R07.81 Pleurodynia; J45.909 Unspecified asthma, uncomplicated
CPT/HCPCS: 36415; 82785; 85025; 85379; 85652

== ENCOUNTER 2025-07-21 08:42 | Outpatient (REF) | payer MEDICAID, SELFPAY ==
--- OUTSIDE RECORDS SUMMARY | 2024-04-14 06:20 | XMS_ITS ---
Author Organization [facility] Address [address] [place] [address] Care Team Providers Care Cosmetic Consultant Name Role Phone Adolfo Vivar, Milana Primary Care Provider Fabiola vailaRaphael Esparza Jr Unavailable REASON FOR VISIT Patient presents today for an OFFICE VISIT F/U HX OF DIVERTICULITIS Encounters Encounter Location Date Provider Diagnosis [facility] [address] [place] [address] 04/14/2024 Raphael Powell Jr Plan Of Treatment Next Appt Details Provider Name:Raphael yi Jr, 05/17/2026 09:20:00 AM, [address] [place] [address], [address], [place], [address], Progress Notes * FANY ORALDOB:1970 (55 yo M)Acc No.[id number]:04/14/2024 Progress Notes Patient: ORAL VALDOVINOS Provider: Jaye Powell MD :1970 A ge:54 Y S ex:Male Date:04/14/2024 Address:[address] [place] [address] [address], [id number] Pcp:Milana Mata M.D. Subjective: * Chief Complaints: [...] 04/14/2024 Generated for Phil walter/Filippo/Paolo on: 0 07/21/2025 09:13 AM EDT
--- OUTSIDE RECORDS SUMMARY | 2024-07-21 05:40 | XMS_ITS ---
Author Organization [facility] Address [address] [place] [address] Care Team Providers Care Machine Sizer Name Role Phone Adolfo Vivar, Milana Primary Care Provider Fabiola Raphael Antonio Jr Unavailable REASON FOR VISIT Patient presents today for diverticulitis Encounters Encounter Location Date Provider Diagnosis [facility] [address] [place] [address] 07/21/2024 Raphael Powell Jr Plan Of Treatment Next Appt Details Provider Name:Raphael yi Jr, 05/17/2026 09:20:00 AM, [address], [address], [place], [address], Progress Notes * ORAL SOARESDOB:1970 (55 yo M)Acc No.[id number]:07/21/2024 Progress Notes Patient: ORAL VALDOVINOS Provider: Jaye Powell MD :1970 A ge:54 Y S ex:Male Date:07/21/2024 Address:[address] [place] [address] [address], [place], [place] Pcp:Milana Mata M.D. Subjective: * Chief Complaints: [...] 07/21/2024 Generated for Phil walter/Filippo/Paolo on: 0 07/21/2025 09:12 AM EDT
--- NOTE | ~2025-07-21 | CT_ITS ---
EXAMINATION: CT ABDOMEN WITH CONTRAST CLINICAL INFORMATION: mid back pain on right side COMPARISON: January 06, 2025 TECHNIQUE: Contiguous axial thin section helical images of the abdomen were performed following the administration of oral contrast and mL of Omnipaque 350 intravenous contrast. The data set was reformatted in the coronal and sagittal planes and reviewed on an independent workstation. This CT examination was performed using dose optimization techniques as appropriate, variously including the following: *Automated exposure control *Adjustment of mA and/or kV according to patient size (this includes techniques or standardized protocols for targeted exams where dose is matched to indication/reason for exam; i.e. extremities or head) *Use of iterative reconstruction technique FINDINGS: LUNG BASES: See report CT chest from same day. Clear LIVER, GALLBLADDER, AND BILIARY TREE: There are several hypoattenuating lesions that are too small to characterize but probably represent simple hepatic cysts. The gallbladder is unremarkable. There is no biliary ductal dilation. PANCREAS: Unremarkable SPLEEN: Unremarkable ADRENAL GLANDS AND KIDNEYS: Adrenal glands are unremarkable. There are numerous parapelvic cysts in the left kidney. No stones identified. No hydronephrosis is present. BOWEL LOOPS: There are a few pseudodiverticula at the junction of descending and sigmoid colon. LYMPH NODES: Unremarkable VASCULAR: Unremarkable. BONES: Again seen is a chronic mild superior endplate compression fracture of T9. There is also possible mild disc. Endplate compression fracture of T12. Mild multilevel degenerative changes are present in the lower thoracic and lumbar spine. There is facet sclerosis on the left at L5. CT/CT abdomen w IV con IMPRESSION: Mild chronic compression fractures of T9 and T12. Mild multilevel degenerative changes are present in the thoracolumbar spine. Fleischner guidelines were followed. Electronically signed by: Zeke Arzate MD 07/21/2025 10:31 AM EDT
--- NOTE | ~2025-07-21 | CT_ITS ---
EXAMINATION: CT CHEST WITH CONTRAST CLINICAL INFORMATION: Pleurodynia COMPARISON: May 12, 2025 and June 03, 2023 TECHNIQUE: Multidetector volumetric CT imaging of the chest was obtained after the administration of 85 mL of Omnipaque 350 intravenous contrast without immediate adverse reactions. Axial MIP volume rendering provided. Sagittal and coronal reformatted images were obtained. This CT examination was performed using dose optimization techniques as appropriate, variously including the following: *Automated exposure control *Adjustment of mA and/or kV according to patient size (this includes techniques or standardized protocols for targeted exams where dose is matched to indication/reason for exam; i.e. extremities or head) *Use of iterative reconstruction technique FINDINGS: LUNGS: Axial image 56/157: Again seen is a solid pulmonary nodule in the anterior segment right upper lobe, located laterally and measuring 2 mm. Lungs are clear and unremarkable otherwise. MEDIASTINUM: The mediastinum is normal. PLEURA: There is no pleural effusion. No pleural mass or thickening. AXILLA: No lymphadenopathy. UPPER ABDOMEN: See the CT abdomen and pelvis report from the same day. OSSEOUS STRUCTURES: Again seen is a chronic mild superior endplate compression fracture of T9. There is multilevel mild disc space narrowing with vacuum phenomenon mid to lower thoracic spine. CT/CT chest w IV con IMPRESSION: Stable 2 mm subpleural pulmonary nodule anterior segment right upper lobe. It is unchanged from 2022 and is no further follow-up. Chronic mild compression fracture of the superior endplate of T9. Mild multilevel degenerative disc disease. Fleischner guidelines were followed. Electronically signed by: Zeke Arzate MD 07/21/2025 10:25 AM EDT
--- OUTSIDE RECORDS SUMMARY | 2025-07-21 09:12 | XMS_ITS | Encounter Summary ---
Author Organization [employer] Address [address] [facility] 7t [place] [address] Care Team Providers Care Steamtable Worker Name Role Phone Sandra De Jesus Primary Care Provider [phone] Name, Daniel العراقي Primary Care Provider [phone] Milana Mata DO Primary Care Provider + [phone] Encounter Details Date Type Department Care Team (Late st Contact Info) Description 02/05/2024 Telephone [facility] MEDICINE 230 [place] [address] Sandra De Jesus FNP [address] [place] [address] Social History Tobacco Use Types Packs/Day Years [...] Description 07/28/2025 10:00 AM EDT Clinical Support [facility] MEDICINE [address] [place] [address] Stacia Mcfarland, RAN 08/10/2025 9:45 AM EDT Office Visit [facility] MED[facility]INE [address] [place] [address] SunsetHeidi FNP 230 [place] [address] documented as of this encounter Visit Diagnoses Not on filedocumented in this encounter Additional Health Concerns Assessment Noted Time PHQ-9 Depression Total Score: 8 11/15/19 9:20 AM EST documented as of this encounter Care Teams Steamtable Worker Relationship Specialty Start Date End Date Sandra De Jesus FNP [address] [place] [address] PCP - General Family Medicine 07/06/23 06/23/24 Daniel Krause MD [address] [place] [address] PCP - General Internal Medicine 06/24/24 07/01/24 Milana Mata DO 230 [place] [address] PCP - General Family Medicine 07/02/24 documented as of this encounter
--- OUTSIDE RECORDS SUMMARY | 2025-07-21 09:12 | XMS_ITS | Encounter Summary ---
Author Organization [employer] Address [address] [facility] [address] 7t [place] [address] Care Team Providers Care Investment Analyst Name Role Phone Milana Mata DO Primary Care Provider + [phone] Encounter Details Date Type Department Care Team ([facility] st Contact Info) Description 05/20/2025 Orders Only [facility] MEDICINE 230 [place] [address] Milana Mata DO 230 [place] [address] Social History Tobacco Use Types Packs/Day Years [...] Description 07/28/2025 10:00 AM EDT Clinical Support [facility] MEDICINE [address] [place] [address] Stacia Mcfarland, RAN 08/10/2025 9:45 AM EDT Office Visit [facility] MEDICINE [address] [place] [address] [facility], [facility] 230 [place] [address] documented as of this encounter Visit Diagnoses Not on filedocumented in this encounter Additional Health Concerns Assessment Noted Time PHQ-9 Depression Total Score: 0 01/01/20 25 10:51 AM EDT documented as of this encounter Care Teams Investment Analyst Relationship Specialty Start Date End Date Milana Mata DO [address] [place] [address] PCP - General Family Medicine 07/02/24 documented as of this encounter
--- OUTSIDE RECORDS SUMMARY | 2025-07-21 09:12 | XMS_ITS | Encounter Summary ---
Author Organization [employer] Address [address] [facility] 7t [place] [address] Care Team Providers Care Medical Safety Director Name Role Phone Sandra De Jesus Primary Care Provider +- Name, Daniel العراقي Primary Care Provider [phone] Milana Mata DO Primary Care Provider [phone] Encounter Details Date Type Department Care Team (Late st Contact Info) Description 05/23/2024 Orders Only [facility] [address] [place] [address] Sandra De Jesus FNP [address] [place] [address] Cervical neck pain with evidence of disc [...] Description 07/28/2025 10:00 AM EDT Clinical Support [facility] MEDICINE [address] [place] [address] Stacia Mcfarland, RAN 08/10/2025 9:45 AM EDT Office Visit [facility] [address] [place] [address] Heidi Nolen FNP 230 [place] [address] documented as of this encounter Visit Diagnoses Diagnosis Cervical neck pain with evidence of disc disease- Primary Other and unspecified disc disorder of cervical region documented in this encounter Additional Health Concerns Assessment Noted Time PHQ-9 Depression Total Score: 8 11/15/19 9:20 AM EST documented as of this encounter Care Teams Medical Safety Director Relationship Specialty Start Date End Date Sandra De Jesus FNP [address] [place] [address] PCP - General Family Medicine 07/06/23 06/23/24 Daniel Krause MD [address] [place] [address] PCP - General Internal Medicine 06/24/24 07/01/24 Milana Mata DO [address] [place] [address] PCP - General Family Medicine 07/02/24 documented as of this encounter
--- OUTSIDE RECORDS SUMMARY | 2025-07-21 09:12 | XMS_ITS | Encounter Summary ---
Author Organization [employer] Address 75 [facility] 7t [place] [address] Care Team Providers Care Ethnic Origins Teacher Name Role Phone AdolfoMilana Primary Care Provider + [phone] Encounter Details Date Type Department Care Team ([facility] st Contact Info) Description 07/10/2025 Results Follow-Up [facility] MEDICINE 230 [place] [address] Mona Chan MD 230 [place] [address] D Dimer High Sensitivity Social History Tobacco Use Types Packs/Day Years [...] as of this encounter Miscellaneous Notes * Result Encounter Note - Mona Webber MD - 07/10/2025 12:05 PM EDT I called pt and informed about normal D dimer ,given ongoing pain still advised to get CT chest/abddone documented in this encounter Plan of Treatment Upcoming Encounters Date Type Department Care Team (Late st Contact Info) Description 07/28/2025 10:00 AM EDT Clinical Support [facility] MEDICINE [address] [place] [address] Stacia Mcfarland RN 08/10/2025 9:45 AM EDT Office Visit [facility] MEDICINE [address] [place] [address] Heidi Nolen FNP 230 [place] [address] documented as of this encounter Visit Diagnoses Not on filedocumented in this encounter Additional Health Concerns Assessment Noted Time PHQ-9 Depression Total Score: 0 01/01/20 25 10:51 AM EDT documented as of this encounter Care Teams Ethnic Origins Teacher Relationship Specialty Start Date End Date Milana Mata DO [address] [place] [address] PCP - General Family Medicine 07/02/24 documented as of this encounter
--- OUTSIDE RECORDS SUMMARY | 2025-07-21 09:12 | XMS_ITS | Encounter Summary ---
Author Organization [facility] Address [address] [address] Phone Care Team Providers Care Food Service Assistant Name Role Phone Christiana Campbell MD Primary Care Provider Caroline magaña Encounter Details Date Type Department Care Team (Late st Contact Info) Description 02/13/2023 Procedure Pass OR Admitting Dept - [facility] Department [address] [place] [address] Social History Tobacco Use Types Packs/Day Years [...] 4:19 PM EDT Iliana Olguin RN * [place] Suicide Severity Rating Scale (Screener/Recent Self-Report) Question [...] on filedocumented in this encounter Care Teams Food Service Assistant Relationship Specialty Start Date End Date Christiana Campbell MD PCP - General Internal Medicine 09/27/22 documented as of this encounter Additional Source Comments The information contained in this document represents components of the legal health record. It is not the complete legal health record.[facility]
--- OUTSIDE RECORDS SUMMARY | 2025-07-21 09:12 | XMS_ITS | Encounter Summary ---
Author Organization [employer] Address [address] [facility] [address] 7t [place] [address] Care Team Providers Care Alterations Supervisor Name Role Phone Sandra De Jesus Primary Care Provider + Jimi, Daniel العراقي Primary Care Provider [phone] Milana Mata DO Primary Care Provider [phone] Encounter Details Date Type Department Care Team (Late st Contact Info) Description 09/03/2023 Abstract [facility] MEDICINE [address] [place] [address] Iram Resendiz Social History Tobacco Use Types [...] Clinical Support [facility] MEDICINE [address] [place] [address] Stacia Mcfarland RN 08/10/2025 9:45 AM EDT Office Visit [facility] MEDICINE [address] [place] [address] PeakHeidi hawkins [facility] 230 [place] [address] documented as of this encounter Visit Diagnoses Not on filedocumented in this encounter Additional Health Concerns Assessment Noted Time PHQ-9 Depression Total Score: 12 023 2:23 PM EDT documented as of this encounter Care Teams Alterations Supervisor Relationship Specialty Start Date End Date Sandra De Jesus FNP [address] [place] [address] PCP - General Family Medicine 07/06/23 06/23/24 Daniel Krause MD [address] [place] [address] PCP - General Internal Medicine 06/24/24 07/01/24 Milana Mata DO [address] [place] [address] PCP - General Family Medicine 07/02/24 documented as of this encounter
--- OUTSIDE RECORDS SUMMARY | 2025-07-21 09:12 | XMS_ITS | Encounter Summary ---
Author Organization [facility] Address [address] [address] Phone Care Team Providers Care Lumber Checker Name Role Phone Pcp, Unknown Primary Care Provider Christiana Amador MD Primary Care Provider Caroline magaña Encounter Details Date Type Department Care Team (Late st Contact Info) Description 09/19/2022 Procedure Pass [facility], Ct Scan - [address] [address] Social History Tobacco Use Types Packs/Day Years [...] 09/19/2022 7:36 PM Usman Trejo, RN * [place] Suicide Severity Rating Scale (Screener/Recent Self-Report) Question [...] on filedocumented in this encounter Care Teams Lumber Checker Relationship Specialty Start Date End Date Pcp, Unknown PCP - General 09/19/22 09/26/22 Christiana Campbell MD PCP - General Internal Medicine 09/27/22 documented as of this encounter Additional Source Comments The information contained in this document represents components of the legal health record. It is not the complete legal health record.[facility]
--- OUTSIDE RECORDS SUMMARY | 2025-07-21 09:12 | XMS_ITS | Encounter Summary ---
Author Organization [employer] Address [address] [facility] [address] 7t [place] [address] Care Team Providers Care Commercial Loan Underwriter Name Role Phone Sandra De Jesus Primary Care Provider + Daniel Krause MD Primary Care Provider [phone] Milana Mata DO Primary Care Provider [phone] Reason for Visit * Reason Comments Med Refill Encounter Details Date Type Department Care Team (Late st Contact Info) Description 09/30/2023 Refill [facility] MEDICINE 230 [place] [address] Campbell Salguero AGNP Social History Tobacco Use [...] Description 07/28/2025 10:00 AM EDT Clinical Support [address] [address] Stacia Mcfarland, RN 08/10/2025 9:45 AM EDT Office Visit [address] [address] [address]idi [address]olen [address] [address] documented as of this encounter Visit Diagnoses Not on filedocumented in this encounter Additional Health Concerns Assessment Noted Time PHQ-9 Depression Total Score: 12 023 2:23 PM EDT documented as of this encounter Care Teams Commercial Loan Underwriter Relationship Specialty Start Date End Date Sandra De Jesus FNP [address] [place] [address] PCP - General Family Medicine 07/06/23 06/23/24 Daniel Krause MD [address] [place] [address] PCP - General Internal Medicine 06/24/24 07/01/24 Milana Mata DO [address] [place] [address] PCP - General Family Medicine 07/02/24 documented as of this encounter
--- OUTSIDE RECORDS SUMMARY | 2025-07-21 09:12 | XMS_ITS | Encounter Summary ---
Author Organization [employer] Address [address] [facility] 7t [place] [address] Care Team Providers Care Imcu Nurse Name Role Phone Sandra De Jesus Primary Care Provider + Daniel Krause MD Primary Care Provider [phone] Milnaa Mata DO Primary Care Provider +[phone] Reason for Visit * Reason Comments Med Refill Encounter Details Date Type Department Care Team ([facility] st Contact Info) Description 08/01/2023 Refill [facility] 230 [place] [address] Ryan Nation MD [address] [place] [address] Social History Tobacco Use Types Packs/Day Years [...] Description 07/28/2025 10:00 AM EDT Clinical Support [facility] [address] [place] [address] Stacia Mcfarland RN 08/10/2025 9:45 AM EDT Office Visit [facility] [address] [place] [address] Heidi Nolen FNP 230 [place] [address] documented as of this encounter Visit Diagnoses Not on filedocumented in this encounter Additional Health Concerns Assessment Noted Time PHQ-9 Depression Total Score: 12 023 2:23 PM EDT documented as of this encounter Care Teams Imcu Nurse Relationship Specialty Start Date End Date Sandra De Jesus FNP 230 [place] [address] PCP - General Family Medicine 07/06/23 06/23/24 Daniel Krause MD 230 [place] [address] PCP - General Internal Medicine 06/24/24 07/01/24 Milana Mata DO 230 [place] [address] PCP - General Family Medicine 07/02/24 documented as of this encounter
--- OUTSIDE RECORDS SUMMARY | 2025-07-21 09:12 | XMS_ITS | Encounter Summary ---
Author Organization [employer] Address 75 [facility] 7t [place] [address] Care Team Providers Care Returner Name Role Phone Sandra De Jesus Primary Care Provider + Jimi, Daniel العراقي Primary Care Provider +[phone] Milana Mata DO Primary Care Provider [phone] Reason for Visit * Reason Comments Med Refill Encounter Details Date Type Department Care Team (Late st Contact Info) Description 10/21/2023 Refill [facility] MEDICINE 230 [place] [address] Sandra De Jesus FNP [address] [place], [place] [phone] Social History Tobacco Use Types Packs/Day Years [...] Description 07/28/2025 10:00 AM EDT Clinical Support [address] [address] Stacia Mcfarland RN 08/10/2025 9:45 AM EDT Office Visit [address] [address] [address] [address] documented as of this encounter Visit Diagnoses Not on filedocumented in this encounter Additional Health Concerns Assessment Noted Time PHQ-9 Depression Total Score: 12 023 2:23 PM EDT documented as of this encounter Care Teams Returner Relationship Specialty Start Date End Date Sandra De Jesus FNP [address] [place] [address] PCP - General Family Medicine 07/06/23 06/23/24 Daniel Krause MD [address] [place] [address] PCP - General Internal Medicine 06/24/24 07/01/24 Milana Mata DO [address] [place] [address] PCP - General Family Medicine 07/02/24 documented as of this encounter
--- OUTSIDE RECORDS SUMMARY | 2025-07-21 09:12 | XMS_ITS | Encounter Summary ---
Author Organization [employer] Address [address] [facility] 7t [place] [address] Care Team Providers Care Certified Paralegal Name Role Phone Sandra De Jesus Primary Care Provider [phone] Daniel Krause MD Primary Care Provider [phone] Milana Mata DO Primary Care Provider + [phone] Reason for Visit * Reason Onset Date Comments ORGANIZATIONAL DEVELOPMENT SPECIALIST Reevaluation 05/06/2024 Encounter Details Date Type Department Care Team ([facility] st Contact Info) Description 05/06/2024 Telephone [facility] MEDICINE [address] [place], [place] [phone] Sandra De Jesus FNP [address] [place], [place] [phone] ORGANIZATIONAL DEVELOPMENT SPECIALIST Reevaluation Social History Tobacco Use Types Packs/Day [...] 05/13/2024 9:28 AM EDT Return call from [employer], explain that client want to re-start foster care program, Isidra advised to fax form to [facility], provider will review it and will contact agency if needed anything. Isidra verbally greed and understood. * Telephone Encounter - Alexys Orozco RN - 05/13/2024 9:09 AM EDT T/C x 2 am to [phone] for isidra for below message, No answer. [employer] sent message to call back on [phone]. T/C to lissett to inform that [facility] is trying to call [employer] / ORGANIZATIONAL DEVELOPMENT SPECIALIST company for below message , but not able to contact them. LVM to call back on [phone]. Lissett states she is going to call them, Lissett also informed if ORGANIZATIONAL DEVELOPMENT SPECIALIST company / [employer] is missing any sign please fax documents on [phone] to get sign from PCP. Lissett states she is going to call to company. * Telephone Encounter - Lorena Waldrop - 05/12/2024 4:06 PM EDT Tc from pt spouse regarding message below. * Telephone Encounter - Alexys Orozco RN - 05/12/2024 10:05 AM EDT T/C to [phone] for isidra for below message, No answer. [employer] sent message to call back on [phone]. * Telephone Encounter - Humberto Arauz - 05/12/2024 9:52 AM EDT Tc from [facility] requesting a status on PCP order form. Please see notes. Please contact at [phone] ( ask for isidra ) * Telephone Encounter - Brenda Gifford - 05/09/2024 12:35 PM EDT Tc from pt and Lissett requesting a call back in regards below message. Please contact at [phone] * Telephone Encounter - Alexys Orozco RN - 05/06/2024 4:21 PM EDT T/C to pt. For below message, pt. States his ORGANIZATIONAL DEVELOPMENT SPECIALIST company called him and states PCP discontinue the service for ORGANIZATIONAL DEVELOPMENT SPECIALIST services, pt. States he is having upcoming surgery and needs ORGANIZATIONAL DEVELOPMENT SPECIALIST services. RN cannotsee any notes that says [...] 07/28/2025 10:00 AM EDT Clinical Support [address] [address] Stacia Mcfarland RN 08/10/2025 9:45 AM EDT Office Visit [address] [address] [address] documented as of this encounter Visit Diagnoses Not on filedocumented in this encounter Additional Health Concerns Assessment Noted Time PHQ-9 Depression Total Score: 8 11/15/19 9:20 AM EST documented as of this encounter Care Teams Certified Paralegal Relationship Specialty Start Date End Date Sandra De Jesus FNP [address] [place] [address] PCP - General Family Medicine 07/06/23 06/23/24 Daniel Krause MD [address] [place] [address] PCP - General Internal Medicine 06/24/24 07/01/24 Milana Mata DO [address] [place] [address] PCP - General Family Medicine 07/02/24 documented as of this encounter
--- OUTSIDE RECORDS SUMMARY | 2025-07-21 09:13 | XMS_ITS | Encounter Summary ---
Author Organization [employer] Address [address] [place] [address] 7t [place] [address] Care Team Providers Care Law Office Assistant Name Role Phone Jose M Campbell VERONICA Primary Care Provider Unavail Sandra Mercado Primary Care Provider + Daniel Krause MD Primary Care Provider [phone] Milana Mata DO Primary Care Provider + Reason for Visit * Reason Comments Med Refill Encounter Details Date Type Department Care Team ([facility] st Contact Info) Description 04/05/2023 Refill [facility] [address] [place], [place] [phone] Evie Francisco MD [address] [place] [address] Allergic rhinitis, unspecified seasonality, unspecified trigger Social [...] Description 07/28/2025 10:00 AM EDT Clinical Support [facility] [place] [address] Stacia Mcfarland, RN 08/10/2025 9:45 AM EDT Office Visit [facility] [place] [address] Heidi Nolen FNP [address] [place] [address] documented as of this encounter Visit Diagnoses Diagnosis Allergic rhinitis, unspecified seasonality, unspecified trigger documented in this encounter Additional Health Concerns Assessment Noted Time PHQ-9 Depression Total Score: 12 023 2:23 PM EDT documented as of this encounter Care Teams Law Office Assistant Relationship Specialty Start Date End Date Campbell Salguero AGNP PCP - General Family Medicine 09/25/22 07/05/23 Sandra De Jesus FNP [address] [place] [address] PCP - General Family Medicine 07/06/23 06/23/24 Daniel Krause MD [address] [place] [address] PCP - General Internal Medicine 06/24/24 07/01/24 Milana Mata DO [address] [place] [address] PCP - General Family Medicine 07/02/24 documented as of this encounter
--- OUTSIDE RECORDS SUMMARY | 2025-07-21 09:13 | XMS_ITS | Encounter Summary ---
Author Organization [employer] Address [address] [facility] 7t [place] [address] Care Team Providers Care Cert Occupational Therapy Asst Name Role Phone Adolfo Milana Primary Care Provider + [phone] Reason for Visit * Reason Comments Med Refill Encounter Details Date Type Department Care Team ([facility] st Contact Info) Description 09/04/2024 Refill [facility] [address] [place] [address] Sandra De Jesus FNP [address] [place] [address] Allergic rhinitis due to other allergic trigger, [...] Description 07/28/2025 10:00 AM EDT Clinical Support [facility] [address] [place] [address] Stacia Mcfarland, RN 08/10/2025 9:45 AM EDT Office Visit [facility] [address] [place] [address] Heidi Nolen FNP [address] [place] [address] documented as of this encounter Visit Diagnoses Diagnosis Allergic rhinitis due to other allergic trigger, unspecified seasonality documented in this encounter Additional Health Concerns Assessment Noted Time PHQ-9 Depression Total Score: 8 11/15/19 9:20 AM EST documented as of this encounter Care Teams Cert Occupational Therapy Asst Relationship Specialty Start Date End Date Milana Mata DO [address] [place] [address] PCP - General Family Medicine 07/02/24 documented as of this encounter
--- OUTSIDE RECORDS SUMMARY | 2025-07-21 09:13 | XMS_ITS | Clinical Summary ---
Author Organization [facility] Address [address] [place] [address] Phone Care Team Providers Care Recoverer Name Role Phone Christiana Campbell MD Primary [...] EDT) SODIUM 140 133 - 146 mmol/L [facility] CHLORIDE 102 96 - 108 mmol/L [facility] POTASSIUM 4.4 3.3 - 5.1 mmol/L [facility] CO2 25 21 - 35 mmol/L [facility] BUN 19 6 - 19 mg/dL [facility] CREATININE 1.00 0.5 - 1.5 mg/dL [facility] GLUCOSE 146(H) 70 - 99 mg/dL [facility] CALCIUM 8.9 8.4 - 10.3 mg/dL [facility] EGFR 89 >59 mL/min/1.7 3m2 [facility] Comment:Estimated glomerular filtration rate calculated using the CKD-EPI refit equation. ANION GAP 17 10 - 20 mmol/L [facility] Blood 02/14/2023 5:33 AM EDT 02/14/2023 5:52 AM EDT us Tierra Pollock MD LAB BLOOD ORDERABLES Final R esult [facility] [address] [place] [address] from Last 3 Months or Most Recently Relevant to Health Maintenance Insurance [employer] ACO [address] [place] [address] [address] [place] [address] [employer] Advance Directives For more information, please contact: [phone] (9AM - 5PM [facility], Sunday-Sunday) * Full Code (Latest Code [...] Code Status Confirmed With: Patient Care Teams Recoverer Relationship Specialty Start Date End Date Christiana Campbell MD PCP - General Internal Medicine 09/27/22 Additional Source Comments The information contained in this document represents components of the legal health record. It is not the complete legal health record.[facility]
--- OUTSIDE RECORDS SUMMARY | 2025-07-21 09:13 | XMS_ITS | Patient Health Record ---
Author Organization [facility] Address [address] [place] [address] Care Team Providers Care Supply Chain Manager Name Role Phone Milana Mata M.D. Primary Care Provider Raphael Cortes Jr Unavailable Allergies Allergen (clinical drug ingredient) Drug/Non Drug Allergy documented on EMR Reaction Allergy Type Onset Date Status Penicillin Unknown Drug Allergy Active Results Component Value Reference Range Notes Complete Blood Count no Diff Reviewed date:01/06/2025 01:45:38 PM Interpretation: Performing Lab:[address] [id number] Notes/Report: White Blood Count 6.3 4.8-10.8 X10*3/uL [...] Panel Reviewed date:01/06/2025 01:45:32 PM Interpretation: Performing Lab:[address] [id number] Notes/Report: Bilirubin Total 0.3 0.0-1.0 mg/dL Bilirubin Direct 0.1 0.0-0.5 mg/dL Aspartate Amino Transferase 24 5-37 U/L Alanine Aminotransferase 20 0-40 U/L Total Protein 8.1 6.5-8.0 g/dL Albumin Level 4.3 3.5-5.0 g/dL Alkaline Phosphatase 99 39-117 U/L Blood Urea Nitrogen Reviewed date:01/06/2025 01:45:29 PM Interpretation: Performing Lab:[address] [id number] Notes/Report: Blood Urea Nitrogen 13 9-16 mg/dL Creatinine Reviewed date:01/06/2025 01:45:24 PM Interpretation: Performing Lab:[address] [address] Notes/Report: Creatinine 0.78 0.5-1.4 mg/dL Estimated Glomerular Filt Rate > 60 Chronic Kidney Disease: Estimated GFR < 60 mL/min/1.73m2 Severe Kidney Disease: Estimated GFR < 15 mL/min/1.73m2 Lipase Reviewed date:01/06/2025 01:45:19 PM Interpretation: Performing Lab:[address] [address] Notes/Report: Lipase 20 8-78 U/L CT abdomen pelvis w con Reviewed date:01/06/2025 01:45:13 PM Interpretation: Performing Lab: Notes/Report: [address] [address] [address] Scan Report Signed Patient: Reynaldo Osuna MR#: [id number] : 1970 Acct:[id number] Age/Sex: 54 / M ADM Date: 01/06/25 Loc: HO.CT Attending Dr: Raphael Powell MD Ordering Physician: Raphael Powell MD Date of Service: 01/06/25 Procedure(s): CT abdomen pelvis w IV con Accession Number(s): [id number] cc: Raphael Powell MD; Milana Mata DO Report Number: [id number]: Total DLP = 565.00 mGy-cm EXAMINATION: CT [...] 01/06/25 1134 DD/ 1004 TD/TT: 01/06/25 1035 Structural Designer: Reason For Referral Referring Provider First Name Milana Referring Provider Last Name Adolfo Referred Organization [facility] Referred Provider Raphael Powell Jr Referred Address [address] [place] [address],[address] [address],[place], [place],[address], Referred Provider Specialty Gastroentero logy General Notes Katherine Kraus 2024 02:11:14 PM >requested [facility] referral from [facility] [phone] Referral Priority Routine Medications Medication SIG (Take, [...] Problem Status W/U Status Risk Notes Problem 1352384 Diverticulitis o f large intestine without perforation or abscess without bleeding (K57.32) Active confirmed Problem 107481520 Generalized abdominal pain (R10.84) Active confirmed Problem 577587057 Diverticulitis (K57.92) Active confirmed Problem 774169789 Family history o f colon cancer (Z80.0) Active confirmed Problem 158542028 Acute diverticulitis (K57.92) Active confirmed Problem Gastroesophageal reflux disease (979952717) GERD without esophagitis (K21.9) Active confirmed Problem 24849859 Hypertension, unspecified type (I10) Active confirmed Problem 615269842 Gas bloat syndrome (K92.89) Active confirmed Vital Signs Temperature 98.7 degrees Fahrenheit 05/13/2025 Blood pressure diastolic 01 mm Hg 05/13/2025 Height 65 in 05/13/2025 Blood pressure systolic 001 mm Hg 05/13/2025 Weight 200.6 lbs 05/13/2025 BMI 33.38 kg/m2 05/13/2025 Encounters Encounter Location Date Provider Diagnosis [facility] [address] [place] [phone] 11/12/2024 Raphael Powell Jr Generalized abdominal pain R10.84 [facility] [address] [place] [address] 05/13/2025 Raphael Powell Jr GERD without esophagitis K21.9 ; Family history of colon cancer Z80.0 and Diverticulitis of large intestine without perforation or abscess without bleeding K57.32 [facility] [address] [place] [address] 07/21/2024 Raphael Powell Jr [facility] [address] [place] [address] 01/06/2025 Raphael Powell Jr Assessments Encounter Date [...] and we will get his records from [facility] where he had sigmoid resection. 05/13/2025 [...] Name:Raphael yi , 05/17/2026 09:20:00 AM, [address], [address], [place], [address], Insurance Providers Payer Name Payer Address Payer Phone Subscriber Number Group Number Insured Name Patient Relationship to Insured Coverage Start Date Coverage End Date [facility]ICA[facility] [address] [place] [address] [id number] REYNALDO SOARES Self - patient is the [...]
--- OUTSIDE RECORDS SUMMARY | 2025-07-21 09:13 | XMS_ITS | Encounter Summary ---
Author Organization [employer] Address [address] [place] [address] 7t [place] [address] Care Team Providers Care Rn Hospital Name Role Phone Campbell Salguero Primary Care Provider Unavail Sandra Mercado Primary Care Provider + NameDaniel MD Primary Care Provider [phone] Milana Mata DO Primary Care Provider [phone] Reason for Visit * Reason Onset Date Comments Nurse Triage 05/28/2023 Encounter Details Date Type Department Care Team (Late st Contact Info) Description 05/28/2023 Telephone [facility] MEDICINE [address] [place] [address] Campbell Salguero AGNP Nurse Triage Social History [...] 9:23 AM EDT Call to Pt with [place] [employer] [place] [id number] Pt is given message from EVIN Salguero, [...] EDT Triage call Pt gives permission for JUNIOR QA ANALYST, Lissett, to speak for Pt. PT was [...] accepted this outcome Please contact lissett at [phone] documented in this encounter Plan of Treatment Upcoming Encounters Date Type Department Care Team (Late st Contact Info) Description 07/28/2025 10:00 AM EDT Clinical Support [address] [address] Stacia Mcfarland, RN 08/10/2025 9:45 AM EDT Office Visit [address] [address] Heidi Nolen FNP [address] [place] [address] documented as of this encounter Visit Diagnoses Diagnosis Benign prostatic hyperplasia with incomplete bladder emptying- Primary documented in this encounter Additional Health Concerns Assessment Noted Time PHQ-9 Depression Total Score: 12 023 2:23 PM EDT documented as of this encounter Care Teams Rn Hospital Relationship Specialty Start Date End Date Campbell Salguero AGNP PCP - General Family Medicine 09/25/22 07/05/23 [place] [address] PCP - General Family Medicine 07/06/23 06/23/24 Daniel Krause MD [address] [place] [address] PCP - General Internal Medicine 06/24/24 07/01/24 Milana Mata DO [address] [place] [id number] PCP - General Family Medicine 07/02/24 documented as of this encounter
--- OUTSIDE RECORDS SUMMARY | 2025-07-21 09:13 | XMS_ITS | Encounter Summary ---
Author Organization [employer] Address [address] [facility] 7t [place] [address] Care Team Providers Care Glazing Department Supervisor Name Role Phone AdolfoMilana Primary Care Provider + [phone] Encounter Details Date Type Department Care Team (Latest Contact Info) Description 07/08/2025 Results Follow-Up [facility] MEDICINE [address] [place], [place] [phone] Willy Rock MD [address] [place] [address] CBC auto differential, Comprehensive Metabolic Panel, Urinalysis [...] EDT Clinical Support [facility] [address] [place] [address] Stacia Mcfarland, RN 08/10/2025 9:45 AM EDT Office Visit [facility] [address] [place] [address] Heidi Nolen FNP [address] [place] [address] documented as of this encounter Visit Diagnoses Not on filedocumented in this encounter Additional Health Concerns Assessment Noted Time PHQ-9 Depression Total Score: 0 01/01/20 25 10:51 AM EDT documented as of this encounter Care Teams Glazing Department Supervisor Relationship Specialty Start Date End Date Milana Mata DO [address] [place] [address] PCP - General Family Medicine 07/02/24 documented as of this encounter
--- OUTSIDE RECORDS SUMMARY | 2025-07-21 09:13 | XMS_ITS | Encounter Summary ---
Author Organization [employer] Address [address] [place] [address] 7t [place] [address] Care Team Providers Care Ruffler Name Role Phone Jose M Campbell VERONICA Primary Care Provider Unavail Sandra Mercado Primary Care Provider [phone] NameDaniel MD Primary Care Provider [phone] Milana Mata DO Primary Care Provider + [phone] Reason for Visit * Reason Comments Med Refill Encounter Details Date Type Department Care Team (Late Contact Info) Description 07/04/2023 Refill [facility] MEDICINE [address] [place] [address] Name, MD Daniel [address] [place] [address] Social History Tobacco Use Types Packs/Day Years [...] 07/28/2025 10:00 AM EDT Clinical Support [facility] MEDICINE [address] [place] [address] Stacia Mcfarland, RN 08/10/2025 9:45 AM EDT Office Visit [facility] MEDICINE [address] [place] [address] Heidi Nolen FNP [address] [place] [address] documented as of this encounter Visit Diagnoses Not on filedocumented in this encounter Additional Health Concerns Assessment Noted Time PHQ-9 Depression Total Score: 12 023 2:23 PM EDT documented as of this encounter Care Teams Ruffler Relationship Specialty Start Date End Date Cmapbell Salguero AGNP PCP - General Family Medicine 09/25/22 07/05/23 Sandra De Jesus FNP [address] [place] [address] PCP - General Family Medicine 07/06/23 06/23/24 Daniel Krause MD [address] [place] [address] PCP - General Internal Medicine 06/24/24 07/01/24 Milana Mata DO [address] [place] [address] PCP - General Family Medicine 07/02/24 documented as of this encounter
--- OUTSIDE RECORDS SUMMARY | 2025-07-21 09:13 | XMS_ITS | Clinical Summary ---
Author Organization [employer] Address [address] [facility] [address] [place] [address] Care Team Providers Care Boat Engines Installer Name Role Phone AdolfoMilana Primary Care Provider Allergies Active Allergy Reactions Criticality Noted Date Comments [place]-Containing Products Anaphylaxis High 04/20/2023 Fruit Extracts 10/10/2023 Pt states he is allergic to any fruit that has seeds Penicillins Rash High 10/12/2010 [place] Oil 08/21/2024 Medications OXcarbazepine (Trileptal) 300 MG [...] each Active Blood Glucose Monitoring Suppl (FreeStyle [place] Lite) w/Device kit Use to test blood [...] complication, without long-term current use of insulin (HCC) Inject 0.5 mL under the skin 1 (one) time per week. 2 mL 11 025 Active cloNIDine (Catapres) 0.2 MG tablet Take 0.2 mg by mouth at bedtime. 025 Active traMADol (Ultram) 50 MG tabletIndications :Chronic neck and back pain TAKE 1 TABLET EVERY TWELVE HOURS NEEDED FOR SEVERE PAIN 56 tablet 025 Active cetirizine (ZyrTEC) 10 MG tabletIndications :Seasonal allergic rhinitis, unspecified trigger TAKE 1 TABLET BY MOUTH ONCE DAILY 90 tablet 1 025 2024 Discontinued traMADol (Ultram) 50 MG tabletIndications :Chronic neck and back pain TAKE 1 TABLET BY MOUTH EVERY TWELVE HOURS NEEDED FOR SEVERE PAIN FOR UP TO 28 DAYS 56 tablet 025 2024 Discontinued Active Problems Problem Noted Date Diagnosed Date Right flank pain 07/11/2025 Assessment & Plan (07/11/2025 12:19 AM EDT): -CT chest w IV con 04/2025 1.4 mm noncalcified pulmonary nodule, right upper lung lobe. Nonspecific subcentimeter hepatic hypodensities. Multilevel spondylosis and old superior endplate compression deformity, T9, T11 and T12. Diverticular disease, transverse colon. -Pt was seen at [facility] on 07/06/2025 for similar complaint . [place] possible pain from costochondritis, labs done 07/07/2025 UA neg, Chem wnl , WBC wnl, Hb 12.1 <---12.1 ( chronic anemia ) ,CRP 1.04 ,ESR 25 CXR Normal Pt w intense right flank pain ,pleuritic ,pain is not reproduced in any way w movement or palpation on exam Pt has relevant hx of PE from apparent hypercoagulable unspecified condition and despite to be compliant w AC this should be r/o given symptoms persisit ,will also r/o clots in kidney that may cause as well similar symptoms .Will need to r/o nephrolithiasis -D dimer ordered -CT chest ,abd w contrast -advised tylenol 1 g Q 8 -ok tramadol 50 mg up to 8 h for now for more intense pain -alarm signs and symptoms discussed w pt in case needs to go to ED Long-term current use of opiate analgesic 2024 [...] % 34.5 Low S/P laparoscopic-assisted sigmoidectomy 02/21/20 Assessment & Plan [...] losartan, clonidine and amlodipine. Assessment & Plan (07/11/2025 12:19 AM EDT): BP mild elevated ,can be from current pain -continue current regimen and to f w PCP Assessment & Plan (04/20/2023 5:31 PM EDT): [...] Major depression, recurrent, chronic 10/22/1959 Seizure disorder ([facility]) 10/22/1959 Resolved Problems Problem Noted Date Diagnosed [...] there were small polyps. 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 Does not wear glasses. Dental home: upcoming appointment next month at [facility]. Allergies 04/20/2023 07/24/2024 Assessment & [...] was prudent to send him to an residential framing carpenter to get a comprehensive and accurate list [...] Ordered stat CT Gas bloat syndrome 03/01/2023 4 Assessment & Plan (03/02/2023 3:45 PM EDT): [...] fluids and opiates for pain control. Epilepsy (CMS/HCC) 09/20/2022 4 Overview (03/01/2023): Last Assessment & Plan: Seizure-free regimen of Trileptal. Calcaneal spur of both feet 04/20/2022 07/24/2024 Low back pain 05/14/2012 07/24/2024 Hypercoagulable state 10/22/19592023 Hypertriglyceridemia 10/22/1960 024 Encounters Date Type Department Care Team Description 07/10/2025 Results Follow-Up [facility] [place] [address] Mona Chan MD D Dimer High Sensitivity 07/10/2025 Orders Only GENERIC EXTERNAL DATA DEPARTMENT Provider, Generic External Data 07/10/2025 Refill [facility] [place] [place] [address] Milana Mata DO Chronic neck and back pain 07/09/2025 11:15 AM EDT Office Visit [facility] [place] [address] Mona Chan MD Mid back pain on right side (Primary Dx); Pleuritic pain; Right flank pain; Essential hypertension 07/09/2025 Travel 07/09/2025 Telephone [facility] [place] [address] Milana Mata DO Appointment Request 07/08/2025 Results Follow-Up [facility] [place] [address] [place] [address] Willy Rock MD CBC auto differential, Comprehensive Metabolic Panel, Urinalysis Complete, XR Chest 2 Views 07/07/2025 Orders Only GENERIC EXTERNAL DATA DEPARTMENT Provider, Generic External Data 07/07/2025 Telephone [facility] [place] [address] Milana Mata DO Results 07/06/2025 7:40 PM EDT Office Visit [facility] [place] [address] Willy Rock MD Mid back pain on right side (Primary Dx) 07/06/2025 Travel 07/06/2025 Telephone [facility] [place] [address] Milana Mata DO Nurse Triage 07/06/2025 Refill [facility] [address] [place] [address] Milana Mata DO Type 2 diabetes mellitus without complication, without long-term current use of insulin ([facility]) 06/25/2025 Refill [facility] [address] [place] [address] Milana Mata DO Seasonal allergic rhinitis, unspecified trigger 06/04/2025 Refill [facility] [address] [place] [address] Milana Mata DO Chronic neck and back pain 06/02/2025 Refill [facility] [address] [place] [address] Milana Mata DO Hyperlipidemia, unspecified hyperlipidemia type 05/27/2025 Refill [facility] [address] [place] [address] Milana Mata DO 05/20/2025 Orders Only [facility] [address] [place] [address] Milana Mata DO 05/12/2025 Orders Only [facility] [address] [place] [address] Milana Mata DO 05/11/2025 11:00 AM EDT Office Visit [facility] [address] [place] [phone] Justyn Mondragon MD Acute intractable headache, unspecified headache type (Primary Dx); Neck pain; Right facial numbness 05/11/2025 9:00 AM EDT Clinical Support [facility] [address] [place] [phone] Stacia Mcfarland, RAN Long-term current use of opiate analgesic (Primary Dx) 05/11/2025 Refill [facility] [address] [place] [address] Stacia Mcfarland, sand car worker neck and back pain 05/11/2025 Travel 05/10/2025 Refill [facility] [address] [place] [address] Milana Maat DO 05/01/2025 Telephone [facility] [address] [place] [address] Milana Mata DO Results 04/30/2025 Telephone [facility] [address] [place] [address] Stacia Mcfarland RN METAPHYSICS TEACHER Tier level 04/23/2025 Refill [facility] [address] [place] [address] Milana Mata DO from Last 3 Months Immunizations Immunization Administration [...] Description 07/28/2025 10:00 AM EDT Clinical Support [facility] [address] [place] [phone] Stacia Mcfarland, RN 08/10/2025 9:45 AM EDT Office Visit [facility] [address] [place] [phone] Heidi Nolen FNP [address] [place] [address] Health Maintenance Due Date Last Done Comments [...] Procedure Name Priority Date/Time Associated Diagnosis Comments IMMUNOGLOBULIN E Routine 07/10/2025 9:01 AM EDT SED RATE BY MODIFIED WESTERGREN Routine 07/10/2025 9:01 AM EDT CBC WITH AUTO DIFFERENTIAL Routine 07/10/2025 9:01 AM EDT D DIMER HIGH SENSITIVITY Routine 07/10/2025 9:01 AM EDT Mid back pain on right side Pleuritic pain XR CHEST 2 VIEWS Routine 07/07/2025 9:30 AM EDT Mid back pain on right side RAST ALLERGEN (NON ORDERABLE) Routine 07/07/2025 9:24 AM EDT IMMUNOGLOBULIN E Routine 07/07/2025 9:24 AM EDT RESPIRATORY ALLERGY PROFILE REGION I Routine 07/07/2025 [...] Recently Relevant to Health Maintenance Results * D Dimer High Sensitivity (07/10/2025 9:01 AM EDT) Pathologist [facility] D Dimer High Sensitivity <150 NG/ML [facility] Comment:D-DIMER HS REFERENCE RANGENote: Our assay reports D-Dimer Units (D- DU).The cut-off value for venous thromboembolic (VTE) disease is230 ng/mL. This value has a very high negative predictivevalue when the patient has a low to moderate clinicalprobability of VTE.The upper limit of normal is 243 ng/mL. Blood 07/10/2025 9:01 AM EDT 07/10/2025 11:12 AM EDT Mona Webber MD LAB BLOOD ORDERAB LES Final Result [facility] [address] [place] [phone] * (ABNORMAL) CBC auto differential (07/10/2025 9:01 AM EDT) Only the most recent of2 resultswithin the time period is included. Pathologist [facility] White Blood Count 6.6 4.8 - 10.8 X10*3/uL [facility] Red Blood Count 4.71 4.60 - 5.80 X10*6/uL [facility] Hemoglobin 12.3(L) 14.0 - 18.0 g/dl [facility] Hematocrit 37.9(L) 42.0 - 52.0 % [facility] Mean Corpuscular Volume 80.5 80.0 - 98.0 fL [facility] Mean Corpuscular Hemoglobin 26.1(L) 27.0 - 33.0 pg [facility] Mean Corpuscular HGB Conc 32.5 31.0 - 36.0 g/dl [facility] Red Cell Distribution Width 14.6 11.0 - 16.0 % [facility] Platelet Count 247 160 - 400 X10*3/uL [facility] Mean Platelet Volume 12.3 9.4 - 12.4 fL [facility] Neutrophils Percent Auto 62.9 45 - 73 % [facility] Imm Gran Pct Auto 0.3 0.0 - 0.4 % [facility] Lymphocytes Percent Auto 27.5 20 - 40 % [facility] Monocytes Percent Auto 7.0 2 - 11 % [facility] Eosinophils Percent Auto 1.8 0 - 4 % [facility] Basophils Percent Auto 0.5 0 - 2 % [facility] NRBC Pct Auto 0.0 0.0 - 0.2 /100WBC [facility] Neutrophils Absolute Auto 4.1 2.0 - 8.3 x10*3/uL [facility] Imm Gran Abs Auto 0.02 0.00 - 0.03 X10*3/uL [facility] Lymphocytes Absolute Auto 1.8 1.2 - 4.9 X10*3/uL [facility] Monocytes Absolute Auto 0.5 0.1 - 1.2 X10*3/uL [facility] Eosinophils Absolute Auto 0.1 0.0 - 0.4 X10*3/uL [facility] Basophils Absolute Auto 0.0 0.0 - 0.2 X10*3/uL [facility] NRBC Abs Auto 0.000 0.0 - 0.012 X10*3/uL [facility] 07/10/2025 9:01 AM EDT 07/10/2025 11:19 AM EDT us Generic External Data Provider LAB BLOOD ORDERAB LES Final Result [facility] [address] [place] [phone] [phone] * (ABNORMAL) Sed Rate by Modified Lawrence (07/10/2025 9:01 AM EDT) Only the most recent of2 resultswithin the time period is included. Erythrocyte Sedimentation Rate 25(H) 0 - 15 MM/HR [facility] Comment:Patients with polycy themia and many hemoglobin abnormalitiesmay have depressed sed rates whereas patients with anemiamay have elevated sed rates. 07/10/2025 9:01 AM EDT 07/10/2025 11:12 AM EDT Generic External Data Provider LAB BLOOD ORDERAB LES Final Result Performing Organization Address [facility] de Phone Number [facility] [address] [place] [phone] * Immunoglobulin E (07/10/2025 9:01 AM EDT) Only the most recent of2 resultswithin the time period is included. Immunoglobulin E 72 <YK=719 kU/L [facility] Comment:THIS TEST WAS PERFOR MED AT:[employer] [place] [phone] VILLALPANDO MD 07/10/2025 9:01 AM EDT 07/10/2025 11:12 AM EDT Generic External Data Provider LAB BLOOD ORDERAB LES Final Result Performing Organization Address [facility] de Phone Number [facility] [address] [place] [phone] * XR Chest 2 Views (07/07/2025 9:30 AM EDT) Anatomical Region Laterality Modality Chest Radiographic Marybel ging 07/07/2025 9:30 AM EDT Narrative 07/07/2025 9:39 AM EDT [facility] [address] [place] [address] XRay Report Signed Patient: Reynaldo Osuna MR#: [id number] : 1970 Acct:[id number] Age/Sex: 55 / M ADM Date: 07/07/25 Loc: HO.HHCX Attending Dr: Chance Ortiz MD Ordering Physician: Willy Rock MD Date of Service: 07/07/25 Procedure(s): XR chest 2V Accession Number(s): [id number] cc: Milana Mata DO; Willy Rock MD [...] in OV> 07/07/2535 DD/ 9 TD/TT: 07/07/25930 Crinkling Machine Operator: Procedure Note Donotuseinterpreter, Image - 07/07/[address] [address] XRay Report Signed Patient: Patrick Osuna#: [id number] : 1970Acct:[id number] Age/Sex: 55 / MADM Date: 07/07/25 Loc: HO.HHCX Attending Dr: Chance Ortiz MD Ordering Physician: Willy Rock MD Date of Service: 07/07/25 Procedure(s): XR chest 2V Accession Number(s): [id number] cc: Milana Mata DO; Willy Rock MD [...] in OV> 07/07/25934 DD/ 9 TD/TT: 07/07/25930 Crinkling Machine Operator: us Willy Rock MD IMG XR PROCEDURES Edited Result - Final * Rast Allergen (07/07/2025 9:24 AM EDT) Rast Allergen SEE NOTE [facility] Comment:SEE SCANNED REPORT I N EMR 07/07/2025 9:24 AM EDT 07/13/2025 12:05 PM EDT Narrative [facility] - 07/13/2025 12:06 PM EDT DOG DANDER REFLEX us Generic External Data Provider HISTORICAL/NON OR DERABLE LABS Final Result [facility] [address] [place] [phone] * Respiratory Allergy Profile Region I (07/07/2025 9:24 AM EDT) Mouse Urine Proteins (E72) IgE <0.10 [facility] Class 0 [facility] Cockroach (I6) IgE 0.19 [facility] Class 0/1 [facility] Dermatophagoides farinae (D2) IgE 0.21 [facility] Class 0/1 [facility] Cat Dander (E1) IgE <0.10 [facility] Class 0 [facility] Dog Dander (E5) IgE 0.35 [facility] Class 1 [facility] Bhupinder Grass (G6) IgE <0.10 [facility] Class 0 [facility] Cladosporium herbarum (M2) IgE <0.10 [facility] Class 0 [facility] Aspergillus Fumigatis (M3) IgE <0.10 [facility] Class 0 [facility] Alternaria alternata (M6) IgE <0.10 [facility] Class 0 [facility] [place] (t6) IgE <0.10 [facility] Class 0 [facility] [place] (T7) IgE 7.70 [facility] Class 3 [facility] [place] (T10) IgE <0.10 [facility] Class 0 [facility] [place] (T11) IgE <0.10 [facility] Class 0 [facility] [place] (T14) IgE <0.10 [facility] Class 0 [facility] [place] (t15) IgE 016 [facility] Class 0/1 [facility] [place] (T70) IgE <0.10 [facility] Class 0 [facility] Common Ragweed (Short) (W1) IgE <0.10 [facility] Class 0 [facility] Mugwort (w6) IgE <0.10 [facility] Class 0 [facility] Dermatophagoides pteronyssinus (D1) IgE 0.25 [facility] Class 2 [facility] Bermuda Grass (g2) IgE <0.10 [facility] Class 0 [facility] Penicillium Notatum (M1) IgE <0.10 [facility] Class 0 [facility] Birch (T3) IgE 40.20 [facility] Class 4 [facility] Elm (t8) IgE <0.10 [facility] Class 0 [facility] Maple (Creek) (T1) IgE 2.12 [facility] Class 2 [facility] Rough Pigweed (W14) IgE <0.10 [facility] Class 0 [facility] [place] (W18) IgE <0.10 [facility] Class 0 [facility] Allergen Comment See Below [facility] Comment: Specific Level of AllergenIGE Class kU/L Specific IGE Antibody ----- --------- 0 <0.10 Absent/Undetectable 0/1 0.10-0.34 Very Low Level 1 0.35-0.69 Low Level 2 0.70-3.49 Moderate Level 3 3.50-17.4 High Level 4 17.5-49.9 Very High Level 5 50-100 Very High Level 6 >100 Very High LevelThe clinical relevance of allergen results of0.10-0.34 kU/L are undetermined and intended forspecialist use.Allergens denoted with a include results usingone or more analyte specific reagents. In thosecases, the test was developed and its analyticalperformance characteristics have been determined by[employer]. It has not been cleared or approvedby the U.S. Food and Drug Administration. This assayhas been validated pursuant to the CLIA regulationsand is used for clinical purposes.THIS TEST WAS PERFORMED AT:[employer] [place] [phone] VILLALPANDO MD 07/07/2025 9:24 AM EDT 07/07/2025 11:20 AM EDT us Generic External Data Provider LAB BLOOD ORDERAB LES Final Result [facility] [address] [place] [phone] * (ABNORMAL) Urinalysis Complete (07/07/2025 9:24 AM EDT) Color Urine Yellow [facility] Appearance Urine Turbid [facility] PH 5.5 5.0 - 9.0 [facility] Glucose Urine UA Negative Negative mg/dL [facility] Urine Blood Negative Negative [facility] Specific [place] - Urine >=1.030(H) 1.005 - 1.025 [facility] Urine Protein Negative Neg-Trace mg/dL [facility] Urine Ketones Negative Negative mg/dL [facility] Nitrite Urine Negative Negative [facility] Leukocyte Esterase Urine Negative Negative [facility] RBC Urine 0-2 0 - 2 /HPF [facility] Urine WBC 0-5 0 - 5 /HPF [facility] Urine Squamous Epithelial Cell 0-2 0 - 2 /HPF [facility] Urine Bacteria None Seen None Seen [facility] Hyaline Casts, Urine 0-2 0 - 2 /LPF [facility] Urine (Urine, Random) 07/07/2025 9:24 AM EDT 07/07/2025 12:18 PM EDT us Willy Rock MD LAB URINE ORDERABLES Final Resul t Performing Organization Address [facility] Co de Phone Number [facility] [address] [place] [phone] * (ABNORMAL) C-reactive Protein (07/07/2025 9:24 AM EDT) C Reactive Protein 1.04(H) < or = 0.50 mg/dL [facility] Blood Venous blood specimen / Unknown 07/07/2025 9:24 AM EDT 07/07/2025 11:20 AM EDT us Milana Mata DO LAB BLOOD ORDERABLES Final R esult Performing Organization Address [facility] Co de Phone Number [facility] [address] [place] [phone] * (ABNORMAL) Comprehensive Metabolic Panel (07/07/2025 9:24 AM EDT) Sodium 140 135 - 145 mmol/L [facility] Potassium 3.9 3.3 - 5.1 mmol/L [facility] Chloride 104 96 - 108 mmol/L [facility] Carbon Dioxide 30(H) 22 - 29 mmol/L [facility] Anion Gap 10(L) 12 - 20 [facility] Urea Nitrogen (BUN) 14 9 - 16 mg/dL [facility] Creatinine, Serum 0.78 0.5 - 1.4 mg/dL [facility] Estimated Glomerular Filt Rate >60 [facility] Comment:Chronic Kidney Disea se: Estimated GFR < 60 mL/min/[id number] Kidney Disease: Estimated GFR < 15 mL/min/1.73m2 Glucose 96 60 - 115 mg/dL [facility] Calcium 9.1 8.4 - 10.2 mg/dL [facility] Bilirubin, Total 0.4 0.0 - 1.0 mg/dL [facility] Aspartate Amino Transferase 22 5 - 37 U/L [facility] Alanine Aminotransferase 23 0 - 40 U/L [facility] Total Protein 7.3 6.5 - 8.0 g/dL [facility] Albumin Level 4.4 3.5 - 5.0 g/dL [facility] Alkaline Phosphatase 103 39 - 117 U/L [facility] Blood Venous blood specimen / Unknown 07/07/2025 9:24 AM EDT 07/07/2025 11:20 AM EDT us Willy Rock MD LAB BLOOD ORDERABLES Final Resul t [facility] [address] [place] [phone] * POCT Creatinine GFR (05/12/2025 9:10 AM EDT) POCT Creatinine 0.9 0.5 - 1.4 mg/dL [facility] GFR POC >60 [facility] Comment:Chronic Kidney Disea se: Estimated GFR < 60 mL/min/[id number] Kidney Disease: Estimated GFR < 15 mL/min/1.73m2 05/12/2025 9:10 AM EDT 05/13/2025 8:13 AM EDT Narrative [facility] - 05/13/2025 8:14 AM EDT [id number] Milana Mata DO LAB POINT OF CARE TEST DOCKE D DEVICE ORDERABLES Final Result [facility] [address] [place] [phone] * CT Chest w/ Contrast (05/12/2025 9:09 AM EDT) Anatomical Region Laterality Modality Body, Chest Computed Tomogra phy 05/12/2025 9:09 AM EDT Narrative 05/12/2025 9:56 AM EDT [address] [address] [address] Scan Report Signed Patient: Reynaldo Osuna MR#: [id number] : 1970 Acct:[id number] Age/Sex: 55 / M ADM Date: 05/12/25 Loc: HO.CT Attending Dr: Milana Mata DO Ordering Physician: Milana Mata DO Date of Service: 05/12/25 Procedure(s): CT chest w IV con Accession Number(s): [id number] cc: Milana Mata DO Report Number: [id number]: Total DLP = 197.00 mGy-cm EXAMINATION: CT [...] reconstruction technique DLP: 197 mGy centimeter. FINDINGS: REGASIFICATION PLANT OPERATOR: No hyperinflation. Cardiomediastinal silhouette size is normal. [...] in OV> 05/12/25 0953 DD/ TD/TT: 05/12/2535 Crinkling Machine Operator: Procedure Note Donotuseinterpreter, Image - 05/12/[address] [address] [address] Scan Report Signed Patient: Patrick Osuna#: [id number] : 1970Acct:[id number] Age/Sex: 55 / MADM Date: 05/12/25 Loc: HO.CT Attending Dr: Milana Mata DO Ordering Physician: Milana Mata DO Date of Service: 05/12/25 Procedure(s): CT chest w IV con Accession Number(s): [id number] cc: Milana Mata DO Report Number: [id number]: Total DLP = 197.00 mGy-cm EXAMINATION: CT [...] reconstruction technique DLP: 197 mGy centimeter. FINDINGS: REGASIFICATION PLANT OPERATOR: No hyperinflation. Cardiomediastinal silhouette size is normal. [...] Saurabh Jiménez MDin OV> 05/12/25 0953 DD/ 0909 TD/TT: 05/12/2535 Crinkling Machine Operator: Milana Mata DO IMG CT PROCEDURES Final Resu lt * POCT ABILIO-14 Urine Drug Screen (05/11/2025 9:24 AM EDT) THC Negative Negative Cocaine Screen, Urine Negative [...] - 05/11/2025 9:24 AM EDT UTOX cup Lot#[id number] Exp. 07/28/26 Internal Pass Control Milana Mata [...] [facility] Hepatitis C Antibody Nonreactive Nonreactive [facility] Comment:Antibodies to HCV no t detected; does not exclude early acuteHCV infection. Blood Venous blood specimen / Unknown 07/28/2024 10:21 AM EDT 07/28/2024 11:15 AM EDT Milana Mata DO LAB BLOOD ORDERABLES Final R esult [facility] [address] [place] [phone] * HIV-1/2 Antigen and Antibodies, Fourth Generation, with Reflexes (07/28/2024 10:21 AM EDT) Pathologist [facility] HIV AB/AG Nonreactive Nonreactive [facility] Comment:HIV-1 p24 Ag and/or HIV-1/HIV-2 Ab not detected.A test result that is nonreactive does not exclude thepossibility of exposure to or infection with HIV-1 and/orHIV-2. Nonreactive results in this assay for individualswith prior exposure to HIV-1 and/or HIV-2 may be due toantigen and antibody levels that are below the limit ofdetection of this assay.The [employer] HIV Ag/Ab Combo assay result andsupplemental assay results should be interpreted inconjunction with the patient's clinical presentation,history and other laboratory results. If the results areinconsistent with clinical evidence, additional testing issuggested to confirm the result. Blood Venous blood specimen / Unknown 07/28/2024 10:21 AM EDT 07/28/2024 11:15 AM EDT us Milana Mata DO LAB BLOOD ORDERABLES Final R esult [facility] [address] [place] [phone] * (ABNORMAL) Lipid Panel, Standard (07/28/2024 10:21 AM EDT) Triglycerides 116 <150 mg/dL [facility] Comment:Desirable Triglyceri de: less than 150 mg/dLBorderline High Triglyceride 150-199 mg/dLHigh Triglyceride: 200-499 mg/dLVery High Triglyceride: greater than or equal to 5OO mg/dL Cholesterol 127 <200 mg/dL [facility] Comment:Desirable Cholestero l: less than 200 mg/dLBorderline High Cholesterol: 200-239 mg/dLHigh Cholesterol: greater than 239 mg/dL LDL Cholesterol Calculated 67 <100 mg/dL [facility] Comment:Desirable LDL: less than 100 mg/dLNear Optimal/Above Optimal LDL: 110- 129 mg/dLBorderline High LDL: 130-159 mg/dLHigh LDL: 160-189 mg/dLVery High LDL: greater than or equal to 190 mg/dL HDL Cholesterol 37(L) >40 mg/dL [facility] Comment:Desirable HDL: great er than 40 mg/dL Note: This HDL assay may give artificially low results in patients with liver disease. Blood Venous blood specimen / Unknown 07/28/2024 10:21 AM EDT 07/28/2024 10:55 AM EDT us Milana Adolfo DO LAB BLOOD ORDERABLES Final R esult Performing Organization Address [facility] Co de Phone Number [facility] [address] [place] [phone] * Albumin, Random Urine W/Creatinine (07/28/2024 10:13 AM EDT) Creatinine, Urine 102.76 mg/dL [facility] Microalbumin Urine <5.0 mg/L [facility] Microalbum Creatinine Ratio Ur TNP <30 ug/mg cr [facility] Comment:Unable to calculate albumin/creatinine ratio due to lowmicroalbumin or creatinine result. Urine (Urine, Random) 07/28/2024 10:13 AM EDT 07/28/2024 10:55 AM EDT us Milana Mata DO LAB URINE ORDERABLES Final R esult Performing Organization Address [facility] Co de Phone Number [facility] [address] [place] [phone] * (ABNORMAL) Fecal Globin by Immunochemistry (11/15/2023 9:03 AM EST) Fecal Globin By Immunochemistry SEE NOTE(A) [facility] Comment:FECAL GLOBIN BY IMMU NOCHEMISTRY Micro Number: [id number] Test Status: Final Specimen Source: Not given Specimen Quality: Adequate Fecal Globin: DetectedTHIS TEST WAS PERFORMED AT:[employer] [place] [phone] VILLALPANDO MD Stool Rectal contents / Unknown 11/15/2023 9:03 AM EST 11/15/2023 12:27 PM EST us Fátima MONGEP LAB BODY FLUIDS AND STOOLS ORD ERABLES Final Result Performing Organization Address [facility] Co de Phone Number [facility] [address] [place] [phone] * Colonoscopy (04/19/2023 2:32 PM EDT) Colonoscopy Normal Normal Comment:Repeat in 5 years us Historical Provider MD HEALTH MAINTENANCE Final Result from Last 3 Months or Most Recently Relevant to Health Maintenance Insurance [facility] C3 DENTAL-[facility] MEDICAID STAND ADULT Care Teams [employer] Installer Relationship Specialty Start Date End Date Milana Mata DO [address] [place] [address] PCP - General Family Medicine 07/02/24
--- OUTSIDE RECORDS SUMMARY | 2025-07-21 09:13 | XMS_ITS | Encounter Summary ---
Author Organization [employer] Address [address] [facility] [address] [place] [address] Care Team Providers Care Service Planner Name Role Phone Campbell Salguero Primary Care Provider Unavail Sandra Mercado Primary Care Provider + Daniel Krause MD Primary Care Provider [phone] Milana Mata DO Primary Care Provider + Encounter Details Date Type Department Care Team ([facility] Contact Info) Description 04/25/2023 Telephone [facility] [address] [place] [address] Earlene Lange LPN Social History Tobacco Use [...] Upcoming Encounters Date Type Department Care Team ([facility] Contact Info) Description 07/28/2025 10:00 AM EDT Clinical Support [place] [address] Stacia Mcfarland, RN 08/10/2025 9:45 AM EDT Office Visit [place] [address] Heidi Nolen FNP [address] [place] [address] documented as of this encounter Visit Diagnoses Not on filedocumented in this encounter Additional Health Concerns Assessment Noted Time PHQ-9 Depression Total Score: 12 023 2:23 PM EDT documented as of this encounter Care Teams Service Planner Relationship Specialty Start Date End Date Campbell Salguero AGNP PCP - General Family Medicine 09/25/22 07/05/23 [place] [address] PCP - General Family Medicine 07/06/23 06/23/24 Daniel Krause MD [address] [place] [phone] PCP - General Internal Medicine 06/24/24 07/01/24 Milana Mata DO [address] [place] [phone] PCP - General Family Medicine 07/02/24 documented as of this encounter
[2025-07-21] MEDS: iohexoL 350 MG/ML 100 ML INFUS..BTL 85 ML IV (10:12)
== END 2025-07-21 08:43 | disposition home or self-care (01) ==
LOC: HO.CT 08:42
PROVIDERS: PCP Student in an Organized Health Care Education/Training Program; Visit Provider Student in an Organized Health Care Education/Training Program
DX: M54.9 Dorsalgia, unspecified (principal); R07.81 Pleurodynia
CPT/HCPCS: 71260; 74160; Q9967

== ENCOUNTER → 2025-07-21 08:47 | Outpatient (BNV) | payer MEDICAID, SELFPAY | PROVIDERS: PCP Student in an Organized Health Care Education/Training Program; Visit Provider Radiology Diagnostic Radiology | DX: M84.48XA Pathological fracture, other site, initial encounter for fracture (principal); R91.1 Solitary pulmonary nodule; M51.34 Other intervertebral disc degeneration, thoracic region | CPT/HCPCS: 71260; 74160 ==

== ENCOUNTER 2025-07-21 15:44 | Outpatient (REF) | payer MEDICAID, SELFPAY ==
--- NOTE | 2025-07-21 15:52 | PFT_ITS ---
Indication: Allergies Spirometry FEV1 to FVC 80%; FEV1 2.48 L; FVC 3.12 L. No significant response to bronchodilators noted. Lung Volumes Total lung capacity 72% predicted; residual volume 69% predicted; expiratory reserve volume 49% predicted Diffusion Capacity DLCO 82% predicted Comparisons None Interpretation No obstructive ventilatory defects. No significant response to bronchodilators noted. The patient does have a mild restrictive ventilatory defect. Diffusing capacity is low normal. Clinical correlation warranted. MTDD
[2025-07-21 16:31] VITALS: PULSE 89; O2SAT 99
== END 2025-07-21 15:45 | disposition home or self-care (01) ==
LOC: HO.RESP 15:44
PROVIDERS: PCP Family Medicine; Visit Provider Hospitalist
DX: J45.909 Unspecified asthma, uncomplicated (principal); T78.40XA Allergy, unspecified, initial encounter
CPT/HCPCS: 94010; 94640; 94727; 94729

== ENCOUNTER → 2025-07-21 15:52 | Outpatient (BNV) | payer MEDICAID, SELFPAY | PROVIDERS: PCP Family Medicine; Visit Provider Hospitalist | DX: T78.40XA Allergy, unspecified, initial encounter (principal) | CPT/HCPCS: 94060; 94727; 94729 ==

== ENCOUNTER 2025-08-10 12:10 | Outpatient (REF) | payer MEDICAID, SELFPAY ==
--- NOTE | ~2025-08-10 | XR_ITS ---
EXAMINATION: XR SHOULDER, RIGHT CLINICAL INFORMATION: diffuse joint pain COMPARISON: None available. TECHNIQUE: AP external rotation, Grashey, scapular Y, and axillary views of the right shoulder. FINDINGS: Normal bone mineralization. No fracture, dislocation, or suspicious bone lesion. Normal alignment. The glenohumeral joint is normal. The AC joint is normal. There is a type II acromion. No undersurface spurring. The subacromial space is preserved. Remainder of the soft tissue and bony structures appear normal. XR/XR shoulder RT min 2V IMPRESSION: Normal right shoulder. Electronically signed by: Esequiel Harris MD 08/10/2025 01:30 PM EDT
--- NOTE | ~2025-08-10 | XR_ITS ---
EXAMINATION: XR HAND 3 OR MORE VIEWS LEFT HISTORY: diffuse joint pain COMPARISON: Comparison is made with the prior examination dated 07/28/2024. FINDINGS: Three views of the left hand are submitted. Osseous mineralization is normal. There is deformity of the distal phalanx of the 4th finger which may be due to prior trauma. This is unchanged in appearance. No acute fracture or dislocation is seen. There is narrowing of the 4th PIP joint. There is ulnar negative variance at the wrist. The soft tissues are unremarkable. XR/XR hand LT min 3V IMPRESSION: No acute abnormality is identified. Electronically signed by: Anil Sanchez MD 08/10/2025 01:30 PM EDT
--- NOTE | ~2025-08-10 | XR_ITS ---
EXAMINATION: XR HAND, RIGHT CLINICAL INFORMATION: diffuse joint pain COMPARISON: None available. TECHNIQUE: PA, lateral, and oblique views of the right hand. FINDINGS: No fracture, dislocation or suspicious bone lesion. There is normal alignment. Joint spaces are preserved. There is no periarticular osteopenia or erosions evident. There is no blunting of the ulnar styloid. Carpal bones are intact and normally aligned. Normal-appearing soft tissues. XR/XR hand RT min 3V IMPRESSION: Normal right hand. Electronically signed by: Esequiel Harris MD 08/10/2025 01:30 PM EDT
--- NOTE | ~2025-08-10 | XR_ITS ---
EXAMINATION: XR SHOULDER 2 OR MORE VIEWS LEFT HISTORY: diffuse joint pain COMPARISON: Comparison is made with the prior examination dated 07/06/2023. FINDINGS: Four views of the left shoulder are submitted. Osseous mineralization is normal. There is no fracture or dislocation. The glenohumeral joint is maintained. There is mild narrowing of the AC joint. The soft tissues are unremarkable. XR/XR shoulder LT min 2V IMPRESSION: Mild narrowing of the AC joint. Electronically signed by: Anil Sanchez MD 08/10/2025 01:31 PM EDT
== END 2025-08-10 12:11 | disposition home or self-care (01) ==
LOC: HO.HHCX 12:10
PROVIDERS: PCP Family Medicine; Visit Provider Family Medicine
DX: M25.50 Pain in unspecified joint (principal); M25.512 Pain in left shoulder; M79.642 Pain in left hand; M79.641 Pain in right hand
CPT/HCPCS: 73030; 73130

== ENCOUNTER → 2025-08-10 12:34 | Outpatient (BNV) | payer MEDICAID, SELFPAY | PROVIDERS: PCP Family Medicine; Visit Provider Radiology Diagnostic Radiology | DX: M25.511 Pain in right shoulder (principal); M25.512 Pain in left shoulder; M25.542 Pain in joints of left hand; M25.541 Pain in joints of right hand | CPT/HCPCS: 73030; 73130 ==

== ENCOUNTER 2025-08-11 08:46 | Outpatient (REF) | payer MEDICAID, SELFPAY ==
--- OUTSIDE RECORDS SUMMARY | 2024-04-14 06:20 | XMS_ITS ---
Author Organization [facility] Address [address] [place] [address] Care Team Providers Care Fitness Sales Associate Name Role Phone Adolfo Vivar, Milana Primary Care Provider Fabiola vailaRaphael Esparza Jr Unavailable REASON FOR VISIT Patient presents today for an OFFICE VISIT F/U HX OF DIVERTICULITIS Encounters Encounter Location Date Provider Diagnosis [facility] [address] [place] [address] 04/14/2024 Raphael Powell Jr Plan Of Treatment Next Appt Details Provider Name:Raphael yi Jr, 05/17/2026 09:20:00 AM, [address] [place] [address], [address], [place], [address], Progress Notes * FANY ORALDOB:1970 (55 yo M)Acc No.[id number]:04/14/2024 Progress Notes Patient: ORAL VALDOVINOS Provider: Jaye Powell MD :1970 A ge:54 Y S ex:Male Date:04/14/2024 Address:[address] [place] [address] [address], [id number] Pcp:Milana Mata M.D. Subjective: * Chief Complaints: [...] 0 04/14/2024 Generated for Phil walter/Filippo/Paolo on: 1 09:10 AM EDT
--- OUTSIDE RECORDS SUMMARY | 2024-07-21 05:40 | XMS_ITS ---
Author Organization [facility] Address [address] [place] [address] Care Team Providers Care Biologics Specialist Name Role Phone Adolfo Vivar, Milana Primary Care Provider Fabiola Raphael Antonio Jr Unavailable REASON FOR VISIT Patient presents today for diverticulitis Encounters Encounter Location Date Provider Diagnosis [facility] [address] [place] [address] 07/21/2024 Raphael Powell Jr Plan Of Treatment Next Appt Details Provider Name:Raphael yi Jr, 05/17/2026 09:20:00 AM, [address], [address], [place], [address], Progress Notes * ORAL SOARESDOB:1970 (55 yo M)Acc No.[id number]:07/21/2024 Progress Notes Patient: ORAL VALDOVINOS Provider: Jaye Powell MD :1970 A ge:54 Y S ex:Male Date:07/21/2024 Address:[address] [place] [address] [address], [place], [place] Pcp:Milana Mata M.D. Subjective: * Chief Complaints: [...] 07/21/2024 Generated for Phil walter/Filippo/Paolo on: 1 09:09 AM EDT
--- OUTSIDE RECORDS SUMMARY | 2025-08-10 10:30 | XMS_ITS | Encounter Summary ---
Author Organization [employer] Address [address] [facility] [address] [place] [address] Care Team Providers Care Specialist Physician Name Role Phone Milana Mata DO Primary Care Provider + [phone] Encounter Details Date Type Department Care Team (Late st Contact Info) Description 08/10/2025 10:30 AM EDT Office Visit [facility] [address] [place] [address] Milana Mata DO [address] [place], [place] [id number] Type 2 diabetes mellitus without complication, without long-term current use of insulin (HCC) (Primary Dx); Polyarthralgia Social History Tobacco Use Types Packs/Day Years Used Date Smoking Tobacco: Never Passive Smoke Exposure: Never Smokeless Tobacco: Never Alcohol Use Standard Drinks/Week Comments Not Currently 0 (1 standard drink = 0.6 oz pur e alcohol) Depression Answer Date Recorded Patient Health Questionnaire-9 Score 9 08/10/2025 Patient Health Questionnaire-9 Score 9 08/10/2025 Last PHQ-9: Questionnaire Data Not on file 1 Housing Stability Answer Date Recorded What is your housing situation today? I have [facility] [place] 08/10/[address] you li ve. Do you have problems with any of the following? None of the above 08/10/2025 Food Insecurity Answer Date Recorded Within the past 12 months, y ou worried that your food would run out before you got money to buy more: Never True 08/10/2025 Within the past 12 months,th e food you bought just didn't last and you didn't have enough money to get more: Never True Transportation Answer Date Recorded In the past 12 months, has l ack of transportation kept you from medical appts, meetings, work or from getting things needed for daily living? No 08/10/2025 Utilities Answer Date Recorded In the past 12 months, has t he electric, gas, oil or water company threatened to shut off services in your home? No 08/10/2025 Depression Answer Date Recorded Patient Health Questionnaire-2 Score 2 08/10/2025 Internet Access Answer Date Recorded Internet Access Q1 Yes 08/10/2025 Internet Access Q2 Not on file 08/10/2025 Sex and Gender Information Value Date Recorded Sex Assigned at Male 08/21/2022 10:16 AM EDT Legal Sex Male 10:16 AM EDT Gender Identity Male 08/21/2022 10:16 AM EDT Sexual Orientation Choose not to disclose 2021 10:16 AM EDT documented as of this encounter Last Filed Vital Signs Vital Sign Reading Time Taken Comments Blood Pressure 128/70 08/10/2025 11:13 AM EDT Pulse 88 08/10/2025 11:13 AM EDT Temperature 36.9 C (98.4 F) 08/10/2025 11:13 AM EDT Respiratory Rate 21 08/10/2025 11:13 AM EDT Oxygen Saturation 98% 08/10/2025 11:13 AM EDT Inhaled Oxygen Concentration - - Weight 91.7 kg (202 lb 4 oz) 08/10/2025 11:13 AM EDT Height 165.1 cm (5' 5 ) 08/10/2025 11:13 AM EDT Body Mass Index 33.66 08/10/2025 11:13 AM EDT documented in this encounter Functional Status * Over the past 2 weeks, how often have you been bothered by any of the following problems? Question Answer Date of Assessment Author Patient Health Questionnaire -2 Score 2 08/10/2025 11:18 AM EDT Hortencia Blackmon MA * Little interest or pleasure in doing things Answer Date of Assessment Author Several days 08/10/2025 11:18 AM EDT Hortencia Blackmon MA * Feeling down, depressed, or hopeless Answer Date of Assessment Author Several days 08/10/2025 11:18 AM EDT Hortencia Blackmon MA * Trouble falling or staying asleep, or sleeping too much Answer Date of Assessment Author More than half the days 08/10/2025 11:18 AM Hortencia Truong MA * Feeling tired or having little energy Answer Date of Assessment Author More than half the days 08/10/2025 11:18 AM Hortencia Truong MA * Poor appetite or overeating Answer Date of Assessment Author More than half the days 08/10/2025 11:18 AM [place]MAINET Hortencia Blackmon MA * Feeling bad about yourself - or that you are a failure or have let yourself or your family down Answer Date of Assessment Author Not at all 08/10/2025 11:18 AM Hortencia Truong MA * Trouble concentrating on things, such as reading the newspaper or watching television Answer Date of Assessment Author Several days 08/10/2025 11:18 AM Hortnecia Truong MA * Moving or speaking so slowly that other people could have noticed? Or the opposite - being so fidgety or restless that you have been moving around a lot more than usual. Answer Date of Assessment Author Not at all 08/10/2025 11:18 AM Hortencia Truong MA * Thoughts that you would be better off or hurting yourself in some way Answer Date of Assessment Author Not at all 08/10/2025 11:18 AM Hortencia Truong MA * Patient Health Questionnaire-9 Score Answer Date of Assessment Author 9 08/10/2025 11:18 AM Hortencia Truong MA * How difficult have these problems made it for you to do your work, take care of things at home, or get along with other people? Answer Date of Assessment Author Not difficult at all 08/10/2025 11:18 AM Hortencia Farmer MA * Over the last 2 weeks, how often have you been bothered by any of the following problems? Question Answer Date of Assessment Author Feeling nervous, anxious, or on edge 1 08/10/2025 11:18 AM Hortencia Truong MA Not being able to stop or co ntrol worrying 1 08/10/2025 11:18 AM EDT Hortencia Blackmon MA Worrying too much about diff erent things 1 08/10/2025 11:18 AM EDT Hortencia Blackmon MA Trouble relaxing 0 08/10/2025 11:18 AM EDT Hortencia Blackmon MA Being so restless that it is hard to sit still 0 08/10/2025 11:18 AM EDT Hortencia Blackmon MA Becoming easily annoyed or irritable 1 08/10/2025 11:18 AM EDT Hortencia Blackmon MA Feeling afraid as if somethi ng awful might happen 0 08/10/2025 11:18 AM EDT Hortencia Blackmon MA INOCENTE-7 Total Score 4 08/10/2025 11:18 AM CHARMAINET Hortencia Blackmno MA documented as of this encounter Plan of Treatment Upcoming Encounters Date Type Department Care Team (Late st Contact Info) Description 10/28/2025 10:00 AM EST Clinical Support [facility] [address] [place] [id number] Stacia Mcfarland, RN Scheduled Orders Name Type Priority Associated Diagnoses Order Schedule POCT Hgb A1c Point of Care Testing Routine Type 2 diabetes mellitus without complication, without long-term current use of insulin (HCC) Ordered: 08/10/2025 T4, Free Lab Routine Type 2 diabetes mellitus without complication, without long-term current use of insulin (HCC) Polyarthralgia Expected: 08/10/2025 (Approximate), Expires: 08/10/2026 Vitamin D, 25-Hydroxy, Total, Immunoassay Lab Routine Type 2 diabetes mellitus without complication, without long-term current use of insulin (HCC) Polyarthralgia Expected: 08/10/2025 (Approximate), Expires: 08/10/2026 Lipid Panel, Standard Lab Routine Type 2 diabetes mellitus without complication, without long-term current use of insulin (HCC) Polyarthralgia Expected: 08/10/2025 (Approximate), Expires: 08/10/2026 TSH Lab Routine Type 2 diabetes mellitus without complication, without long-term current use of insulin (HCC) Polyarthralgia Expected: 08/10/2025 (Approximate), Expires: 08/10/2026 Hepatic Function Panel Lab Routine Type 2 diabetes mellitus without complication, without long-term current use of insulin (HCC) Polyarthralgia Expected: 08/10/2025 (Approximate), Expires: 08/10/2026 Hemoglobin A1c Lab Routine Type 2 diabetes mellitus without complication, without long-term current use of insulin (HCC) Polyarthralgia Expected: 08/10/2025 (Approximate), Expires: 08/10/2026 Basic Metabolic Panel Lab Routine Type 2 diabetes mellitus without complication, without long-term current use of insulin (HCC) Polyarthralgia Expected: 08/10/2025 (Approximate), Expires: 08/10/2026 CBC Lab Routine Type 2 diabetes mellitus without complication, without long-term current use of insulin (HCC) Polyarthralgia Expected: 08/10/2025, Expires: 08/10/2026 Albumin, Random Urine W/Creatinine Lab Routine Type 2 diabetes mellitus without complication, without long-term current use of insulin (HCC) Polyarthralgia Expected: 08/10/2025 (Approximate), Expires: 08/10/2026 Hepatitis B surface antigen, EIA Lab Routine Type 2 diabetes mellitus without complication, without long-term current use of insulin (HCC) Polyarthralgia Expected: 08/10/2025 (Approximate), Expires: 08/10/2026 Chlamydia/N. Gonorrhoeae RNA, TMA, Urogenitial Microbiology Routine Type 2 diabetes mellitus without complication, without long-term current use of insulin (HCC) Polyarthralgia Ordered: 08/10/2025 HIV-1/2 Antigen and Antibodies, Fourth Generation, with Reflexes Lab Routine Type 2 diabetes mellitus without complication, without long-term current use of insulin (HCC) Polyarthralgia Expected: 08/10/2025 (Approximate), Expires: 08/10/2026 Hepatitis C Antibody with Reflex to HCV, RNA, Quantitative, Real-Time PCR Lab Routine Type 2 diabetes mellitus without complication, without long-term current use of insulin (HCC) Polyarthralgia Expected: 08/10/2025, Expires: 08/10/2026 RPR (Monitor) with Reflex to Titer Lab Routine Type 2 diabetes mellitus without complication, without long-term current use of insulin (HCC) Polyarthralgia Expected: 08/10/2025, Expires: 08/10/2026 Hepatitis B Surface Antibody, Qualitative Lab Routine Type 2 diabetes mellitus without complication, without long-term current use of insulin (HCC) Polyarthralgia Expected: 08/10/2025 (Approximate), Expires: 08/10/2026 Vitamin B12 (Cobalamin) and Folate Panel, Serum Lab Routine Type 2 diabetes mellitus without complication, without long-term current use of insulin (HCC) Polyarthralgia Expected: 08/10/2025, Expires: 08/10/2026 Ferritin Lab Routine Type 2 diabetes mellitus without complication, without long-term current use of insulin (HCC) Polyarthralgia Expected: 08/10/2025, Expires: 08/10/2026 Iron And Total Iron Binding Capacity Lab Routine Type 2 diabetes mellitus without complication, without long-term current use of insulin (HCC) Polyarthralgia Expected: 08/10/2025, Expires: 08/10/2026 documented as of this encounter Procedures Procedure Name Priority Date/Time Associated Diagnosis Comments XR SHOULDER 2+ VIEWS RIGHT Routine 08/10/2025 1:20 PM EDT Polyarthralgia XR SHOULDER 2+ VIEWS LEFT Routine 08/10/2025 1:20 PM EDT Polyarthralgia XR HAND 3+ VIEWS RIGHT Routine 08/10/2025 1:02 PM EDT Polyarthralgia XR HAND 3+ VIEWS LEFT Routine 08/10/2025 12:30 PM EDT Polyarthralgia POCT GLUCOSE Routine 08/10/2025 11:20 AM EDT Type 2 diabetes mellitus without complication, without long-term current use of insulin (HCC) documented in this encounter Results * XR Shoulder 2+ Views Left (08/10/2025 1:20 PM EDT) Anatomical Region Laterality Modality Upper Extremities, Shoulder Left Radi ographic Imaging 08/10/2025 1:20 PM EDT Narrative 08/10/2025 1:34 PM EDT [address] [address] XRay Report Signed Patient: Reynaldo Osuna MR#: [id number] : 1970 Acct:[id number] Age/Sex: 55 / M ADM Date: 08/10/25 Loc: [facility] Attending Dr: Milana Mata DO Ordering Physician: Milana Mata DO Date of Service: 08/10/25 Procedure(s): XR shoulder LT min 2V Accession Number(s): [id number] cc: Milana Mata DO Reason for Exam: diffuse joint pain EXAMINATION: XR SHOULDER 2 OR MORE VIEWS LEFT HISTORY: diffuse joint pain COMPARISON: Comparison is made with the prior examination dated 07/06/2023. FINDINGS: Four views of the left shoulder are submitted. Osseous mineralization is normal. There is no fracture or dislocation. The glenohumeral joint is maintained. There is mild narrowing of the AC joint. The soft tissues are unremarkable. XR/XR shoulder LT min 2V IMPRESSION: Mild narrowing of the AC joint. Electronically signed by: Anil Sanchez MD 08/10/2025 01:31 PM EDT Dictated By: Anil Sanchez MD Signed By: <Electronically signed by Anil Sanchez MD in OV> 08/10/25 1331 DD/ 1320 TD/TT: 08/10/25 1322 Air Support Control Officer: Procedure Note Donotnohemiinterpreter, Image - 08/10/[address] [address] XRay Report Signed Patient: Reynaldo OsunaMR#: [id number] : 1970Acct:[id number] Age/Sex: 55 / MADM Date: 08/10/25 Loc: [facility] Attending Dr: Milana Mata DO Ordering Physician: Milana Mata DO Date of Service: 08/10/25 Procedure(s): XR shoulder LT min 2V Accession Number(s): [id number] cc: Milana Mata DO Reason for Exam: diffuse joint pain EXAMINATION: XR SHOULDER 2 OR MORE VIEWS LEFT HISTORY: diffuse joint pain COMPARISON: Comparison is made with the prior examination dated 07/06/2023. FINDINGS: Four views of the left shoulder are submitted. Osseous mineralization is normal. There is no fracture or dislocation. The glenohumeral joint is maintained. There is mild narrowing of the AC joint. The soft tissues are unremarkable. XR/XR shoulder LT min 2V IMPRESSION: Mild narrowing of the AC joint. Electronically signed by: Anil Sanchez MD 08/10/2025 01:31 PM EDT RP Dictated By: Anil Sanchez MD Signed By: <Electronically signed by Anil Sanchez MD in OV> 08/10/25 1331 DD/ 1320 TD/TT: 08/10/25 1322 Air Support Control Officer: Milana Mata DO IMG XR PROCEDURES Edited Res ult - Final * XR Shoulder 2+ Views Right (08/10/2025 1:20 PM EDT) Anatomical Region Laterality Modality Upper Extremities, Shoulder Right Radi ographic Imaging 08/10/2025 1:20 PM EDT Narrative 08/10/2025 1:33 PM EDT [address] [address] XRay Report Signed Patient: Reynaldo Osuna MR#: [id number] : 1970 Acct:[id number] Age/Sex: 55 / M ADM Date: 08/10/25 Loc: HO.HHCX Attending Dr: Milana Mata DO Ordering Physician: Milana Mata DO Date of Service: 08/10/25 Procedure(s): XR shoulder RT min 2V Accession Number(s): [id number] cc: Milana Mata DO Reason for Exam: diffuse joint pain EXAMINATION: XR SHOULDER, RIGHT CLINICAL INFORMATION: diffuse joint pain COMPARISON: None available. TECHNIQUE: AP external rotation, Grashey, scapular Y, and axillary views of the right shoulder. FINDINGS: Normal bone mineralization. No fracture, dislocation, or suspicious bone lesion. Normal alignment. The glenohumeral joint is normal. The AC joint is normal. There is a type II acromion. No undersurface spurring. The subacromial space is preserved. Remainder of the soft tissue and bony structures appear normal. XR/XR shoulder RT min 2V IMPRESSION: Normal right shoulder. Electronically signed by: Esequiel Harris MD 08/10/2025 01:30 PM EDT RP Dictated By: Esequiel Harris MD Signed By: <Electronically signed by Esequiel Harris MD in OV> 08/10/25 1330 DD/ 1320 TD/TT: 08/10/25 1322 Air Support Control Officer: Procedure Note Verito, Sheldon - 08/10/[address] [address] XRay Report Signed Patient: Reynaldo Osuna#: [id number] : 1970Acct:[id number] Age/Sex: 55 / MADM Date: 08/10/25 Loc: HO.HHCX Attending Dr: Milana Mata DO Ordering Physician: Milana Mata DO Date of Service: 08/10/25 Procedure(s): XR shoulder RT min 2V Accession Number(s): [id number] cc: Milana Mata DO Reason for Exam: diffuse joint pain EXAMINATION: XR SHOULDER, RIGHT CLINICAL INFORMATION: diffuse joint pain COMPARISON: None available. TECHNIQUE: AP external rotation, Grashey, scapular Y, and axillary views of the right shoulder. FINDINGS: Normal bone mineralization. No fracture, dislocation, or suspicious bone lesion. Normal alignment. The glenohumeral joint is normal. The AC joint is normal. There is a type II acromion. No undersurface spurring. The subacromial space is preserved. Remainder of the soft tissue and bony structures appear normal. XR/XR shoulder RT min 2V IMPRESSION: Normal right shoulder. Electronically signed by: Esequiel Harris MD 08/10/2025 01:30 PM EDT RP Dictated By: Esequiel Harris MD Signed By: <Electronically signed by Esequiel Harris MD in OV> 08/10/25 1330 DD/ 1320 TD/TT: 08/10/25 1322 Air Support Control Officer: Milana Mata DO IMG XR PROCEDURES Edited Res ult - Final * XR Hand 3+ Views Right (08/10/2025 1:02 PM EDT) Anatomical Region Laterality Modality Upper Extremities, Hand Right Radiogra phic Imaging 08/10/2025 1:02 PM EDT Narrative 08/10/2025 1:32 PM EDT [address] [address] XRay Report Signed Patient: Reynaldo Osuna MR#: [id number] : 1970 Acct:[id number] Age/Sex: 55 / M ADM Date: 08/10/25 [facility]: Milana Mata DO Ordering Physician: Milana Mata DO Date of Service: 08/10/25 Procedure(s): XR hand RT min 3V Accession Number(s): [id number] cc: Milana Mata DO Reason for Exam: diffuse joint pain EXAMINATION: XR HAND, RIGHT CLINICAL INFORMATION: diffuse joint pain COMPARISON: None available. TECHNIQUE: PA, lateral, and oblique views of the right hand. FINDINGS: No fracture, dislocation or suspicious bone lesion. There is normal alignment. Joint spaces are preserved. There is no periarticular osteopenia or erosions evident. There is no blunting of the ulnar styloid. Carpal bones are intact and normally aligned. Normal-appearing soft tissues. XR/XR hand RT min 3V IMPRESSION: Normal right hand. Electronically signed by: Esequiel aHrris MD 08/10/2025 01:30 PM EDT RP Dictated By: Esequiel Harris MD Signed By: <Electronically signed by Esequiel Harris MD in OV> 08/10/25 1330 DD/ 1302 TD/TT: 08/10/25 1322 Air Support Control Officer: Procedure Note Donotuseinterpreter, Image - 08/10/[address] [address] XRay Report Signed Patient: Patrick Osuna#: [id number] : 1970Acct:[id number] Age/Sex: 55 / MADM Date: 08/10/25 Loc: HO.HHCX Attending Dr: Milana Mata DO Ordering Physician: Milana Mata DO Date of Service: 08/10/25 Procedure(s): XR hand RT min 3V Accession Number(s): [id number] cc: Milana Mata DO Reason for Exam: diffuse joint pain EXAMINATION: XR HAND, RIGHT CLINICAL INFORMATION: diffuse joint pain COMPARISON: None available. TECHNIQUE: PA, lateral, and oblique views of the right hand. FINDINGS: No fracture, dislocation or suspicious bone lesion. There is normal alignment. Joint spaces are preserved. There is no periarticular osteopenia or erosions evident. There is no blunting of the ulnar styloid. Carpal bones are intact and normally aligned. Normal-appearing soft tissues. XR/XR hand RT min 3V IMPRESSION: Normal right hand. Electronically signed by: Esequiel Harris MD 08/10/2025 01:30 PM EDT Dictated By: Esequiel Harris MD Signed By: <Electronically signed by Esequiel Harris MD in OV> 08/10/25 1330 DD/ 1302 TD/TT: 08/10/25 1322 Air Support Control Officer: us Milana Mata DO IMG XR PROCEDURES Edited Res ult - Final * XR Hand 3+ Views Left (08/10/2025 12:30 PM EDT) Anatomical Region Laterality Modality Upper Extremities, Hand Left Radiogra phic Imaging 08/10/2025 12:3 0 PM EDT Narrative 08/10/2025 1:32 PM EDT [address] [address] XRay Report Signed Patient: Reynaldo Osuna MR#: [id number] : 1970 Acct:[id number] Age/Sex: 55 / M ADM Date: 08/10/25 [facility] Att[facility] Dr: Milana Mata DO Ordering Physician: Milana Mata DO Date of Service: 08/10/25 Procedure(s): XR hand LT min 3V Accession Number(s): [id number] cc: Milana Mata DO Reason for Exam: diffuse joint pain EXAMINATION: XR HAND 3 OR MORE VIEWS LEFT HISTORY: diffuse joint pain COMPARISON: Comparison is made with the prior examination dated 07/28/2024. FINDINGS: Three views of the left hand are submitted. Osseous mineralization is normal. There is deformity of the distal phalanx of the 4th finger which may be due to prior trauma. This is unchanged in appearance. No acute fracture or dislocation is seen. There is narrowing of the 4th PIP joint. There is ulnar negative variance at the wrist. The soft tissues are unremarkable. XR/XR hand LT min 3V IMPRESSION: No acute abnormality is identified. Electronically signed by: Anil Sanchez MD 08/10/2025 01:30 PM EDT Dictated By: Anil Sanchez MD Signed By: <Electronically signed by Anil Sanchez MD in OV> 08/10/25 1330 DD/ 1230 TD/TT: 08/10/25 1232 Air Support Control Officer: Procedure Note Donotuseinterpreter, Image - 08/10/2025 [facility] [address] [place] [address] XRay Report Signed Patient: Reynaldo OsunaMR#: [id number] : 1970Acct:[id number] Age/Sex: 55 / MADM Date: 08/10/25 Loc: HO.DOMX Attending Dr: Milana Mata DO Ordering Physician: Milana Mata DO Date of Service: 08/10/25 Procedure(s): XR hand LT min 3V Accession Number(s): [id number] cc: Milana Mata DO Reason for Exam: diffuse joint pain EXAMINATION: XR HAND 3 OR MORE VIEWS LEFT HISTORY: diffuse joint pain COMPARISON: Comparison is made with the prior examination dated 07/28/2024. FINDINGS: Three views of the left hand are submitted. Osseous mineralization is normal. There is deformity of the distal phalanx of the 4th finger which may be due to prior trauma. This is unchanged in appearance. No acute fracture or dislocation is seen. There is narrowing of the 4th PIP joint. There is ulnar negative variance at the wrist. The soft tissues are unremarkable. XR/XR hand LT min 3V IMPRESSION: No acute abnormality is identified. Electronically signed by: Anil Sanchez MD 08/10/2025 01:30 PM EDT RP Dictated By: Anil Sanchez MD Signed By: <Electronically signed by Anil Sanchez MD in OV> 08/10/25 1330 DD/ 1230 TD/TT: 08/10/25 1232 Air Support Control Officer: Milana Mata DO IMG XR PROCEDURES Edited Res ult - Final * POCT Glucose (08/10/2025 11:20 AM EDT) Glucose Blood, POC 130 60 - 200 mg/dL QC Media Lot # [id number] Lot# Expiration Date 3, Blood Capillary blood specimen / Unknown 08/10/2025 11:20 AM EDT Milana Mata DO POINT OF CARE TEST ENTER/MITZI T ORDERABLES Final Result documented in this encounter Visit Diagnoses Diagnosis Type 2 diabetes mellitus without complication, without long-term current use of insulin (HCC)- Primary Polyarthralgia Pain in joint, multiple sites documented in this encounter Additional Health Concerns Assessment Noted Time PHQ-9 Depression Total Score: 9 08/10/20 11:18 AM EDT documented as of this encounter Care Teams Specialist Physician Relationship Specialty Start Date End Date Milana Mata DO [address] [place] [id number] PCP - General Family Medicine 07/02/24 documented as of this encounter
--- OUTSIDE RECORDS SUMMARY | 2025-08-11 09:09 | XMS_ITS | Encounter Summary ---
Author Organization [employer] Address [address] [facility] 7t [place] [address] Care Team Providers Care Tufting Machine Operator Single Needle Name Role Phone Milana Mata DO Primary Care Provider + [phone] Encounter Details Date Type Department Care Team (Latest Contact Info) Description 08/10/2025 Travel Social History Tobacco Use Types Packs/Day [...] AM EDT documented as of this encounter Functional Status * Over the [...] Assessment Author Several days 08/10/2025 11:18 AM [place]MAINET Hortencia Blackmon [place] * Trouble falling or staying asleep, or sleeping too much Answer Date of Assessment Author More than half the days 08/10/2025 11:18 AM Hortencia Truong MA * Feeling tired or having little energy Answer Date of Assessment Author More than half the days 08/10/2025 11:18 AM [place]MAINET Hortencia Blackmon MA * Poor appetite or overeating Answer Date of Assessment Author More than half the days 08/10/2025 11:18 AM Hortencia Truong MA * Feeling bad about yourself - or that you are a failure or have let yourself or your family down Answer Date of Assessment Author Not at all 08/10/2025 11:18 AM Hortencia Truong MA * Trouble concentrating on things, such as reading the newspaper or watching television Answer Date of Assessment Author Several days 08/10/2025 11:18 AM CHARMAINET Hortencia Blackmon MA * Moving or speaking so slowly that other people could have noticed? Or the opposite - being so fidgety or restless that you have been moving around a lot more than usual. Answer Date of Assessment Author Not at all 08/10/2025 11:18 AM EDT Hortencia Blackmon MA * Thoughts that you would be better off or hurting yourself in some way Answer Date of Assessment Author Not at all 08/10/2025 11:18 AM [place]MAINET Hortencia Blackmon MA * Patient Health Questionnaire-9 Score Answer Date of Assessment Author 9 08/10/2025 11:18 AM EDT Hortencia Blackmon MA * How difficult have these problems made it for you to do your work, take care of things at home, or get along with other people? Answer Date of Assessment Author Not difficult at all 08/10/2025 11:18 AM EDT Hortencia Capps MA * Over the last 2 weeks, how often have you been bothered by any of the following problems? Question Answer Date of Assessment Author Feeling nervous, anxious, or on edge 1 08/10/2025 11:18 AM EDT Hortencia Blackmon MA Not being able to stop or co ntrol worrying 1 08/10/2025 11:18 AM CHARMAINET Hortencia Blackmon MA Worrying too much about diff erent things 1 08/10/2025 11:18 AM CHARMAINET Hortencia Blackmon MA Trouble relaxing 0 08/10/2025 11:18 AM [place]MAINET Hortencia Blackmon MA Being so restless that it is hard to sit still 0 08/10/2025 11:18 AM Hortencia Truong MA Becoming easily annoyed or irritable 1 08/10/2025 11:18 AM [place]MAINET Hortencia Blackmon MA Feeling afraid as if somethi ng awful might happen 0 08/10/2025 11:18 AM Hortencia Truong MA INOCENTE-7 Total Score 4 08/10/2025 11:18 AM Hortencia Truong MA documented as of this encounter Plan of Treatment Upcoming Encounters Date Type Department Care Team (Late st Contact Info) Description 10/28/2025 10:00 AM EST Clinical Support [address] [address] Stacia Mcfarland RN documented as of this encounter Visit Diagnoses Not on filedocumented in this encounter Additional Health Concerns Assessment Noted Time PHQ-9 Depression Total Score: 9 08/10/20 25 11:18 AM EDT documented as of this encounter Care Teams Tufting Machine Operator Single Needle Relationship Specialty Start Date End Date Milana Mata DO [address] [place] [address] PCP - General Family Medicine 07/02/24 documented as of this encounter
--- OUTSIDE RECORDS SUMMARY | 2025-08-11 09:09 | XMS_ITS | Encounter Summary ---
Author Organization [employer] Address [address] [facility] 7t [place] [address] Care Team Providers Care Muffler Tender Name Role Phone Sandra De Jesus Primary Care Provider + Name, Daniel العراقي Primary Care Provider [phone] Milana Mata DO Primary Care Provider +1 Reason for Visit * Reason Comments Med Refill Encounter Details Date Type Department Care Team (Late st Contact Info) Description 10/21/2023 Refill [facility] [address] [place] [address] Sandra De Jesus FNP [address] [place] [address] Social History Tobacco Use Types Packs/Day Years [...] Description 10/28/2025 10:00 AM EST Clinical Support [facility] [address] [place] [address] Stacia Mcfarland, RAN documented as of this encounter Visit Diagnoses Not on filedocumented in this encounter Additional Health Concerns Assessment Noted Time PHQ-9 Depression Total Score: 12 023 2:23 PM EDT documented as of this encounter Care Teams Muffler Tender Relationship Specialty Start Date End Date Sandra De Jesus FNP [address] [place] [address] PCP - General Family Medicine 07/06/23 06/23/24 NameDaniel MD [address] [place] [address] PCP - General Internal Medicine 06/24/24 07/01/24 Milana Mata DO [address] [place] [address] PCP - General Family Medicine 07/02/24 documented as of this encounter
--- OUTSIDE RECORDS SUMMARY | 2025-08-11 09:09 | XMS_ITS | Encounter Summary ---
Author Organization [employer] Address [address] [facility] [address] 7t [place] [address] Care Team Providers Care Well Testing Operator Name Role Phone Sandra De Jesus Primary Care Provider + Name, Daniel العراقي Primary Care Provider [phone] Milana Mata DO Primary Care Provider +[phone] Encounter Details Date Type Department Care Team (Late st Contact Info) Description 09/03/2023 Abstract [facility] [address] [place] [address] Iram Resendiz Social History Tobacco Use Types [...] Description 10/28/2025 10:00 AM EST Clinical Support [facility] [address] [place] [address] Stacia Mcfarland RN documented as of this encounter Visit Diagnoses Not on filedocumented in this encounter Additional Health Concerns Assessment Noted Time PHQ-9 Depression Total Score: 12 023 2:23 PM EDT documented as of this encounter Care Teams Well Testing Operator Relationship Specialty Start Date End Date Sandra De Jesus FNP [address] [place] [address] PCP - General Family Medicine 07/06/23 06/23/24 Daniel Krause MD [address] [place] [address] PCP - General Internal Medicine 06/24/24 07/01/24 Milana Mata DO [address] [place] [address] PCP - General Family Medicine 07/02/24 documented as of this encounter
--- OUTSIDE RECORDS SUMMARY | 2025-08-11 09:09 | XMS_ITS | Encounter Summary ---
Author Organization [employer] Address [address] [facility] 7t [place] [address] Care Team Providers Care Corporate Safety Coordinator Name Role Phone Sandra De Jesus Primary Care Provider + Jimi, Daniel العراقي Primary Care Provider +[phone] Milana Mata DO Primary Care Provider +[phone] Reason for Visit * Reason Comments Med Refill Encounter Details Date Type Department Care Team ([facility] st Contact Info) Description 08/01/2023 Refill [facility] [address] [place] [address] Ryan Nation MD [address] [place] [address] Social History Tobacco Use Types Packs/Day Years [...] Description 10/28/2025 10:00 AM EST Clinical Support [facility] [address] [place] [address] Stacia Mcfarland RN documented as of this encounter Visit Diagnoses Not on filedocumented in this encounter Additional Health Concerns Assessment Noted Time PHQ-9 Depression Total Score: 12 023 2:23 PM EDT documented as of this encounter Care Teams Corporate Safety Coordinator Relationship Specialty Start Date End Date Sandra De Jesus FNP [address] [place] [address] PCP - General Family Medicine 07/06/23 06/23/24 Daniel Krause MD [address] [place] [address] PCP - General Internal Medicine 06/24/24 07/01/24 Milana Mata DO [address] [place] [address] PCP - General Family Medicine 07/02/24 documented as of this encounter
--- OUTSIDE RECORDS SUMMARY | 2025-08-11 09:09 | XMS_ITS | Encounter Summary ---
Author Organization [employer] Address [address] [facility] 7t [place] [address] Care Team Providers Care Manager Placement Name Role Phone Sandra De Jesus Primary Care Provider [phone] Name, Daniel العراقي Primary Care Provider [phone] Milana Mata DO Primary Care Provider + [phone] Reason for Visit * Reason Onset Date Comments [employer] Reevaluation 05/06/2024 Encounter Details Date Type Department Care Team (Late st Contact Info) Description 05/06/2024 Telephone [facility] [address] [place] [address] Sandra De Jesus FNP [address] [place], [place] [phone] [employer] Reevaluation Social History Tobacco Use Types Packs/Day [...] form to [facility], provider will review it and will contact agency if needed anything. Isidra verbally greed and understood. * Telephone Encounter - Alexys Orozco RN - 05/13/2024 9:09 AM EDT T/C x 2 am to [id number] for isidra for below message, No answer. Solar Project Engineer sent message to call back on [phone]. T/C to lissett to inform that [facility] is trying to call [employer] company for below message , but not able to contact them. LVM to call back on [phone]. Lissett states she is going to call them, Lissett also informed if [employer] company / [employer] is missing any sign please fax documents on [phone] to get sign from PCP. Lissett states she is going to call to company. * Telephone Encounter - Lorena Waldrop - 05/12/2024 4:06 PM EDT Tc from pt spouse regarding message below. * Telephone Encounter - Alexys Orozco RN - 05/12/2024 10:05 AM EDT T/C to [id number] for isidra for below message, No answer. Solar Project Engineer sent message to call back on [phone]. * Telephone Encounter - Humberto Arauz - 05/12/2024 9:52 AM EDT Tc from [facility] requesting a status on PCP order form. Please see notes. Please contact at [phone] ( ask for isidra ) * Telephone Encounter - Brenda Gifford - 05/09/2024 12:35 PM EDT Tc from pt and Lissett requesting a call back in regards below message. Please contact at [phone] * Telephone Encounter - Alexys Orozco RN - 05/06/2024 4:21 PM EDT T/C to pt. For below message, pt. States his [employer] company called him and states PCP discontinue the service for [employer] services, pt. States he is having upcoming surgery and needs [employer] services. RN cannotsee any notes that says [...] Description 10/28/2025 10:00 AM EST Clinical Support [facility] MED[facility]INE [address] [place] [address] Stacia Mcfarland, RAN documented as of this encounter Visit Diagnoses Not on filedocumented in this encounter Additional Health Concerns Assessment Noted Time PHQ-9 Depression Total Score: 8 11/15/19 9:20 AM EST documented as of this encounter Care Teams Manager Placement Relationship Specialty Start Date End Date Sandra De Jesus FNP [address] [place] [address] PCP - General Family Medicine 07/06/23 06/23/24 Daniel Krause MD [address] [place] [address] PCP - General Internal Medicine 06/24/24 07/01/24 Milana Mata DO [address] [place] [address] PCP - General Family Medicine 07/02/24 documented as of this encounter
--- OUTSIDE RECORDS SUMMARY | 2025-08-11 09:09 | XMS_ITS | Encounter Summary ---
Author Organization [employer] Address [address] [facility] 7t [place] [address] Care Team Providers Care Chemistry Instructor Name Role Phone Sandra De Jesus Primary Care Provider + Name, Daniel العراقي Primary Care Provider [phone] Milana Mata DO Primary Care Provider + [phone] Encounter Details Date Type Department Care Team (Late st Contact Info) Description 02/05/2024 Telephone [facility] [address] [place] [address] Sandra De Jesus FNP [address] [place] [address] Social History Tobacco Use Types Packs/Day Years [...] enough money to get more: Never True 10/ Transportation Answer Date Recorded In the past [...] Description 10/28/2025 10:00 AM EST Clinical Support [facility] [address] [place] [address] Stacia Mcfarland RN documented as of this encounter Visit Diagnoses Not on filedocumented in this encounter Additional Health Concerns Assessment Noted Time PHQ-9 Depression Total Score: 8 11/15/19 9:20 AM EST documented as of this encounter Care Teams Chemistry Instructor Relationship Specialty Start Date End Date Sandra De Jesus FNP [address] [place] [address] PCP - General Family Medicine 07/06/23 06/23/24 Daniel Krause MD [address] [place] [address] PCP - General Internal Medicine 06/24/24 07/01/24 Milana Mata DO [address] [place] [address] PCP - General Family Medicine 07/02/24 documented as of this encounter
--- OUTSIDE RECORDS SUMMARY | 2025-08-11 09:09 | XMS_ITS | Encounter Summary ---
Author Organization [employer] Address 75 [facility] 7t [place] [address] Care Team Providers Care Medical Stenographer Name Role Phone Sandra De Jesus Primary Care Provider + Name, Daniel العراقي Primary Care Provider [phone] Milana Mata DO Primary Care Provider [phone] Encounter Details Date Type Department Care Team (Late st Contact Info) Description 05/23/2024 Orders Only [facility] [address] [place], [place] [phone] Sadnra De Jesus FNP [address] [place] [address] Cervical neck pain with evidence of disc [...] Description 10/28/2025 10:00 AM EST Clinical Support [facility] [address] [place] [address] Stacia Mcfarland RN documented as of this encounter Visit Diagnoses Diagnosis Cervical neck pain with evidence of disc disease- Primary Other and unspecified disc disorder of cervical region documented in this encounter Additional Health Concerns Assessment Noted Time PHQ-9 Depression Total Score: 8 11/15/19 9:20 AM EST documented as of this encounter Care Teams Medical Stenographer Relationship Specialty Start Date End Date Sandra De Jesus FNP [address] [place] [address] PCP - General Family Medicine 07/06/23 06/23/24 Daniel Krause MD [address] [place] [address] PCP - General Internal Medicine 06/24/24 07/01/24 Milana Mata DO [address] [place] [address] PCP - General Family Medicine 07/02/24 documented as of this encounter
--- OUTSIDE RECORDS SUMMARY | 2025-08-11 09:09 | XMS_ITS | Encounter Summary ---
Author Organization [employer] Address [address] [facility] 7t [place] [address] Care Team Providers Care Envelope Stuffer Name Role Phone LizaJuliazelalem VOGEL Primary Care Provider + Jimi, Daniel العراقي Primary Care Provider [phone] Milana Mata DO Primary Care Provider +1 Reason for Visit * Reason Comments Med Refill Encounter Details Date Type Department Care Team (Late st Contact Info) Description 09/30/2023 Refill [facility] [address] [place], [place] [phone] Campbell Salguero AGNP Social History Tobacco Use [...] 10:00 AM EST Clinical Support [facility] [address] [place] [address] Stacia Mcfarland RN documented as of this encounter Visit Diagnoses Not on filedocumented in this encounter Additional Health Concerns Assessment Noted Time PHQ-9 Depression Total Score: 12 023 2:23 PM EDT documented as of this encounter Care Teams Envelope Stuffer Relationship Specialty Start Date End Date Sandra De Jesus FNP [address] [place] [address] PCP - General Family Medicine 07/06/23 06/23/24 Daniel Krause MD [address] [place] [address] PCP - General Internal Medicine 06/24/24 07/01/24 Milana Mata DO [address] [place] [address] PCP - General Family Medicine 07/02/24 documented as of this encounter
--- OUTSIDE RECORDS SUMMARY | 2025-08-11 09:09 | XMS_ITS | Encounter Summary ---
Author Organization [facility] Address [address] [address] Phone Care Team Providers Care Fish Hatchery Superintendent Name Role Phone Christiana Campbell MD Primary Care Provider Caroline magaña Encounter Details Date Type Department Care Team (Late st Contact Info) Description 02/13/2023 Procedure Pass OR Admitting Dept - [facility] Department [address] [place] [address] Social History Tobacco Use Types Packs/Day Years [...] 4:19 PM EDT Iliana Olguin RN * [place] Suicide Severity Rating Scale (Screener/Recent Self-Report) Question [...] on filedocumented in this encounter Care Teams Fish Hatchery Superintendent Relationship Specialty Start Date End Date Christiana Campbell MD PCP - General Internal Medicine 09/27/22 documented as of this encounter Additional Source Comments The information contained in this document represents components of the legal health record. It is not the complete legal health record.[facility]
--- OUTSIDE RECORDS SUMMARY | 2025-08-11 09:09 | XMS_ITS | Encounter Summary ---
Author Organization [facility] Address [address] [address] Phone Care Team Providers Care Attending Pathologist Name Role Phone Pcp, Unknown Primary Care Provider Christiana Amador MD Primary Care Provider Caroline magaña Encounter Details Date Type Department Care Team (Late st Contact Info) Description 09/19/2022 Procedure Pass [facility], Ct Scan - [address] [address] Social History Tobacco Use Types Packs/Day Years [...] 09/19/2022 7:36 PM Usman Trejo, RN * [place] Suicide Severity Rating Scale (Screener/Recent Self-Report) Question [...] on filedocumented in this encounter Care Teams Attending Pathologist Relationship Specialty Start Date End Date Pcp, Unknown PCP - General 09/19/22 09/26/22 Christiana Campbell MD PCP - General Internal Medicine 09/27/22 documented as of this encounter Additional Source Comments The information contained in this document represents components of the legal health record. It is not the complete legal health record.[facility]
--- OUTSIDE RECORDS SUMMARY | 2025-08-11 09:09 | XMS_ITS | Encounter Summary ---
Author Organization [employer] Address 75 [facility] 7t [place] [address] Care Team Providers Care Foot Tender Name Role Phone Milana Mata DO Primary Care Provider + [phone] Encounter Details Date Type Department Care Team (Late st Contact Info) Description 05/20/2025 Orders Only [facility] MEDICINE [address] [place], [place] [phone] Milana Mata DO [address] [place], [place] [phone] Social History Tobacco Use Types Packs/Day Years [...] Description 10/28/2025 10:00 AM EST Clinical Support [facility] [address] [place] [address] Stacia Mcfarland RN documented as of this encounter Visit Diagnoses Not on filedocumented in this encounter Additional Health Concerns Assessment Noted Time PHQ-9 Depression Total Score: 0 01/01/20 25 10:51 AM EDT documented as of this encounter Care Teams Foot Tender Relationship Specialty Start Date End Date Milana Mata DO [address] [place] [address] PCP - General Family Medicine 07/02/24 documented as of this encounter
--- OUTSIDE RECORDS SUMMARY | 2025-08-11 09:10 | XMS_ITS | Encounter Summary ---
Author Organization [employer] Address 75 [facility] 7t [place] [address] Care Team Providers Care Medicaid Eligibility Specialist Name Role Phone Milana Mata DO Primary Care Provider + [phone] Encounter Details Date Type Department Care Team (Latest Contact Info) Description 07/08/2025 Results Follow-Up [facility] MEDICINE [address] [place] [address] Willy Rock MD [address] [place] [address] CBC auto differential, Comprehensive Metabolic Panel, Urinalysis [...] Description 10/28/2025 10:00 AM EST Clinical Support [facility] [address] [place] [address] Stacia Mcfarland RN documented as of this encounter Visit Diagnoses Not on filedocumented in this encounter Additional Health Concerns Assessment Noted Time PHQ-9 Depression Total Score: 0 01/01/20 25 10:51 AM EDT documented as of this encounter Care Teams Medicaid Eligibility Specialist Relationship Specialty Start Date End Date Milana Mata DO [address] [place] [address] PCP - General Family Medicine 07/02/24 documented as of this encounter
--- OUTSIDE RECORDS SUMMARY | 2025-08-11 09:10 | XMS_ITS | Encounter Summary ---
Author Organization [employer] Address 75 [facility] 7t [place] [address] Care Team Providers Care Executive Legal Secretary Name Role Phone Milana Mata DO Primary Care Provider + [phone] Reason for Visit * Reason Comments Med Refill Encounter Details Date Type Department Care Team ([facility] st Contact Info) Description 09/04/2024 Refill [facility] [address] [place], [place] [phone] Sandra De Jesus FNP [address] [place] [address] Allergic rhinitis due to other allergic trigger, [...] Description 10/28/2025 10:00 AM EST Clinical Support [facility] MED[facility]INE [address] [place] [address] Stacia Mcfarland RN documented as of this encounter Visit Diagnoses Diagnosis Allergic rhinitis due to other allergic trigger, unspecified seasonality documented in this encounter Additional Health Concerns Assessment Noted Time PHQ-9 Depression Total Score: 8 11/15/19 24 9:20 AM EST documented as of this encounter Care Teams Executive Legal Secretary Relationship Specialty Start Date End Date Milana Mata DO [address] [place] [address] PCP - General Family Medicine 07/02/24 documented as of this encounter
--- OUTSIDE RECORDS SUMMARY | 2025-08-11 09:10 | XMS_ITS | Encounter Summary ---
Author Organization [employer] Address [address] [facility] 7t [place] [address] Care Team Providers Care Associate Genetics Professor Name Role Phone Campbell Salguero AGNAny Primary Care Provider Unavail Sandra Mercado Primary Care Provider +- Jimi, Daniel العراقي Primary Care Provider [phone] Milana Mata DO Primary Care Provider +[phone] Reason for Visit * Reason Comments Med Refill Encounter Details Date Type Department Care Team ([facility] st Contact Info) Description 04/05/[address] [facility] [address] [place], [place] [phone] Evie Francisco MD [address] [place] [address] Allergic rhinitis, unspecified seasonality, unspecified trigger Social [...] Description 10/28/2025 10:00 AM EST Clinical Support [facility] MED[facility] [address] [place] [address] Stacia Mcfarland, RN documented as of this encounter Visit Diagnoses Diagnosis Allergic rhinitis, unspecified seasonality, unspecified trigger documented in this encounter Additional Health Concerns Assessment Noted Time PHQ-9 Depression Total Score: 12 023 2:23 PM EDT documented as of this encounter Care Teams Associate Genetics Professor Relationship Specialty Start Date End Date Campbell Salguero AGNP PCP - General Family Medicine 09/25/22 07/05/23 Sandra De Jesus FNP [address] [place] [address] PCP - General Family Medicine 07/06/23 06/23/24 Daniel Krause MD [address] [place] [address] PCP - General Internal Medicine 06/24/24 07/01/24 Milana Mata DO [address] [place] [address] PCP - General Family Medicine 07/02/24 documented as of this encounter
--- OUTSIDE RECORDS SUMMARY | 2025-08-11 09:10 | XMS_ITS | Clinical Summary ---
Author Organization [facility] Address [id number] [place] [address] Phone Care Team Providers Care Assistant Business Manager Name Role Phone Christiana Campbell MD Primary [...] Additional history exists POTASSIUM LEVEL 02/15/2024 02/14/2023, 12/0 11/2021, 09/20/2022, Additional history exists BLOOD PRESSURE 06/27/2024 12/26/2023 COLORECTAL CANCER SCREENING 11/15/2024 FOBT 11/15/2024 11/15/2023 INFLUENZA VACCINE (#1) 2025 , 09/05/2022, 07/10/2018, Additional history exists COVID-19 VACCINE (2 - season) 2025 01/02/2021 SCREENING FOR DIABETES 02/13/2026 02/13/2023 LIPID PANEL 04/20/2028 04/20/2023 Adult Td,Tdap Booster 12/01/2032 12/01/2022 , 09/09/2012, 01/06/2011 RSV VACCINE (1 - 1-dose 75+ series) 02/05/2044 ZOSTER VACCINES Completed 12/01/2022, 09/29/2022 SMOKING STATUS [...] EDT) SODIUM 140 133 - 146 mmol/L [facility] CHLORIDE 102 96 - 108 mmol/L [facility] POTASSIUM 4.4 3.3 - 5.1 mmol/L [facility] CO2 25 21 - 35 mmol/L [facility] BUN 19 6 - 19 mg/dL [facility] CREATININE 1.00 0.5 - 1.5 mg/dL [facility] GLUCOSE 146(H) 70 - 99 mg/dL [facility] CALCIUM 8.9 8.4 - 10.3 mg/dL [facility] EGFR 89 >59 mL/min/1.7 3m2 [facility] Comment:Estimated glomerular filtration rate calculated using the CKD-EPI refit equation. ANION GAP 17 10 - 20 mmol/L [facility] Blood 02/14/2023 5:33 AM EDT 02/14/2023 5:52 AM EDT us Tierra Pollock MD LAB BLOOD ORDERABLES Final R esult [address] [id number] from Last 3 Months or Most Recently Relevant to Health Maintenance Insurance [employer] [address] [place] [address] [address] [address] [place] [address] [employer] Advance Directives For more information, please contact: [phone] (9AM - 5PM [facility], Sunday-Sunday) * Full Code (Latest Code [...] Code Status Confirmed With: Patient Care Teams Assistant Business Manager Relationship Specialty Start Date End Date Christiana Campbell MD PCP - General Internal Medicine 09/27/22 Additional Source Comments The information contained in this document represents components of the legal health record. It is not the complete legal health record.[facility]
--- OUTSIDE RECORDS SUMMARY | 2025-08-11 09:10 | XMS_ITS | Encounter Summary ---
Author Organization [employer] Address [address] [facility] [address] [place] [address] Care Team Providers Care Director Of Graduate Admissions Name Role Phone Jose M Campbell VERONICA Primary Care Provider Unavail Sandra Mercado Primary Care Provider + Name, Daniel العراقي Primary Care Provider [phone] Milana Mata DO Primary Care Provider [phone] Encounter Details Date Type Department Care Team (Late Contact Info) Description 04/25/2023 Telephone [facility] [address] [place], [place] [phone] Earlene Lange LPN Social History Tobacco Use [...] Department Care Team (Late Contact Info) Description 10/28/2025 10:00 AM EST Clinical Support [facility] [address] [place] [id number] Stacia Mcfarland, RN documented as of this encounter Visit Diagnoses Not on filedocumented in this encounter Additional Health Concerns Assessment Noted Time PHQ-9 Depression Total Score: 12 023 2:23 PM EDT documented as of this encounter Care Teams Director Of Graduate Admissions Relationship Specialty Start Date End Date Campbell Salguero AGNP PCP - General Family Medicine 09/25/22 07/05/23 Sandra De Jesus FNP [address] [place] [id number] PCP - General Family Medicine 07/06/23 06/23/24 Daniel Krause MD [address] [place] [id number] PCP - General Internal Medicine 06/24/24 07/01/24 Milana Mata DO [address] [place] [id number] PCP - General Family Medicine 07/02/24 documented as of this encounter
--- OUTSIDE RECORDS SUMMARY | 2025-08-11 09:10 | XMS_ITS | Encounter Summary ---
Author Organization [employer] Address [address] [facility] [address] [place] [address] Care Team Providers Care Geographic Information System Analyst Name Role Phone Campbell Salguero AGNAny Primary Care Provider Unavail Sandra Mercado Primary Care Provider [phone] Daniel Krause MD Primary Care Provider [phone] Milana Mata DO Primary Care Provider + [phone] Reason for Visit * Reason Comments Med Refill Encounter Details Date Type Department Care Team (Late Contact Info) Description 07/04/2023 Refill [facility] [address] [place] [phone] Name, MD Daniel [address] [place] [address] Social History Tobacco Use Types Packs/Day Years [...] Description 10/28/2025 10:00 AM EST Clinical Support [facility] [address] [place] [phone] Stacia Mcfarland, RN documented as of this encounter Visit Diagnoses Not on filedocumented in this encounter Additional Health Concerns Assessment Noted Time PHQ-9 Depression Total Score: 12 023 2:23 PM EDT documented as of this encounter Care Teams Geographic Information System Analyst Relationship Specialty Start Date End Date Campbell Salguero AGNP PCP - General Family Medicine 09/25/22 07/05/23 Sandra De Jesus FNP [address] [place] [address] PCP - General Family Medicine 07/06/23 06/23/24 Daniel Krause MD [address] [place] [address] PCP - General Internal Medicine 06/24/24 07/01/24 Milana Mata DO [address] [place] [address] PCP - General Family Medicine 07/02/24 documented as of this encounter
--- OUTSIDE RECORDS SUMMARY | 2025-08-11 09:10 | XMS_ITS | Clinical Summary ---
Author Organization [employer] Address [address] [facility] [address] [place] [address] Care Team Providers Care Aerial Gunner Superintendent Name Role Phone Milana Mata DO Primary Care Provider [phone] Allergies Active Allergy Reactions Criticality Noted Date Comments [place]-Containing Products Anaphylaxis High 04/20/2023 Fruit Extracts 10/10/2023 Pt states he is allergic to any fruit that has seeds Penicillins Rash High 10/12/2010 [place] Oil 08/21/2024 Medications OXcarbazepine (Trileptal) 300 MG [...] buttocks. 2 each 1 10/09/20 23 Active hydrocortisone (Anusol-HC) 25 MG suppository Insert [...] evening meal. 180 capsule 3 07/24/20 24 Active losartan-hydroCHL OROthiazide (Hyzaar) 100-25 MG [...] day. 48 g 3 01/01/20 25 Active lidocaine (Lidoderm) 5 % [...] 25 Active Blood Glucose Monitoring Suppl (FreeStyle Yeaddiss Lite) w/Device kit Use to test blood sugar 2 times daily 1 kit 01/06/20 25 Active Polyethyl Glycol-Propyl Glycol (Lubricant Eye Drops) 0.4-0.3 % solutionIndicatio ns:Pruritus of both eyes Administer 1 drop into both eyes if needed in the morning, at noon, and at bedtime (irritation). 5 mL 02/21/20 25 Active amLODIPine (Norvasc) 5 MG tablet TAKE 1 TABLET BY MOUTH EVERY MORNING 90 tablet 3 03/05/20 25 Active Ventolin HFA 108 (90 Base) MCG/ACT inhaler INHALE 2 PUFFS BY MOUTH EVERY 4 HOURS NEEDED FOR WHEEZING OR SHORTNESS OF BREATH 18 g 1 03/23/20 25 Active acetaminophen (Tylenol 8 Hour) 650 MG ER tablet TAKE 1 TABLET BY MOUTH EVERY 8 HOURS NEEDED FOR MILD PAIN DO NOT BREAK, CRUSH, DISSOLVE OR CHEW 60 tablet 1 03/25/20 25 Active apixaban (Eliquis) 5 MG tablet TAKE 1 TABLET BY MOUTH TWICE DAILY IN THE MORNING AND IN THE EVENING 60 tablet 5 03/31/20 25 Active Eye Itch Relief 0.035 % solution INSTILL 1 DROP AFFECTED EYE(S) TWICE DAILY IN THE MORNING AND AT BEDTIME NEEDED FOR ALLERGIES OR FOR ITCHING 10 mL 1 04/18/20 25 Active Diclofenac Sodium 1 % gel APPLY 2 GRAMS TOPICALLY TO AFFECTED AREA(S) 4 TIMES A DAY IN THE MORNING, AT NOON, IN THE EVENING, AND AT BEDTIME NEEDED FOR PAIN 200 g 2 05/11/20 25 Active naloxone (Narcan) 4 mg/0.1 mL nasal sprayIndications: Chronic neck and back pain Administer 1 spray (4 mg) into affected nostril(s) if needed for opioid reversal. May repeat every 2-3 minutes if needed, alternating nostrils, until medical assistance becomes available. 2 each 3 05/11/20 25 2025 Active baclofen (Lioresal) 10 MG tablet TAKE 1 TABLET BY MOUTH THREE TIMES DAILY IN THE MORNING, AT NOON, AND AT BEDTIME NEEDED FOR MUSCLE SPASMS 60 tablet 05/28/20 25 Active rosuvastatin (Crestor) 40 MG tabletIndications :Hyperlipidemia, unspecified hyperlipidemia type TAKE 1 TABLET BY MOUTH AT BEDTIME 90 tablet 1 06/03/20 25 Active cetirizine (ZyrTEC) 10 MG tabletIndications :Seasonal allergic rhinitis, unspecified trigger TAKE 1 TABLET BY MOUTH EVERY MORNING 90 tablet 1 06/25/20 25 Active Dulaglutide (Trulicity) 1.5 MG/0.5ML solution auto-injectorIndi cations:Type 2 diabetes mellitus without complication, without long-term current use of insulin (HCC) Inject 0.5 mL under the skin 1 (one) time per week. 2 mL 11 07/08/20 25 Active cloNIDine (Catapres) 0.2 MG tablet Take 0.2 mg by mouth at bedtime. 06/03/20 25 Active traMADol (Ultram) 50 MG tabletIndications :Chronic neck and back pain TAKE 1 TABLET EVERY TWELVE HOURS NEEDED FOR SEVERE PAIN 56 tablet 07/10/20 25 Active polycarbophil (FiberCon) 625 MG tablet Take 1 tablet (625 mg) by mouth 2 times daily. 180 tablet 3 07/24/20 24 2024 Saccharomyces boulardii (probiotic) 250 MG capsule Take 1 capsule (250 mg) by mouth Once per day. 90 capsule 3 07/24/20 24 2024 Trulicity 0.75 MG/0.5ML solution auto-injector INJECT ONE PEN (=0.75MG) SUBCUTANEOUSLY ONCE A WEEK DIRECTED 2 mL 3 04/27/20 25 2024 Discontin ued(Dose adjustmen t) Active Problems Problem Noted Date Diagnosed Date Right flank pain 07/11/2025 Assessment & Plan (07/11/2025 12:19 AM EDT): -CT chest w IV con 04/2025 1.4 mm noncalcified pulmonary nodule, right upper lung lobe. Nonspecific subcentimeter hepatic hypodensities. Multilevel spondylosis and old superior endplate compression deformity, T9, T11 and T12. Diverticular disease, transverse colon. -Pt was seen at [facility] on 07/06/2025 for similar complaint . [place] possible pain from costochondritis, labs done 07/07/2025 [...] Major depression, recurrent, chronic 10/22/1959 Seizure disorder ([facility]/HCC) 10/22/1959 Resolved Problems Problem Noted Date Diagnosed [...] there were small polyps. 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 not wear glasses. Dental home: upcoming appointment next month at [facility]. Allergies 04/20/2023 07/24/2024 Assessment & Plan (04/20/2023 [...] was prudent to send him to an methods specialist engineer to get a comprehensive and accurate list [...] Encounters Date Type Department Care Team Description 08/10/2025 10:30 AM EDT [facility] [address] [place] [address] [place] [address] Milana Mata DO Type 2 diabetes mellitus without complication, without long-term current use of insulin (HCC) (Primary Dx); Polyarthralgia 08/10/2025 Travel 07/31/2025 Telephone [facility] [place] [address] Milana Mata DO Chart Prep 07/29/2025 [address] [address] Milana Mata DO Medication Question 07/28/2025 10:00 AM EDT Clinical Support [facility] [place] [facility] [place] [address] Stacia Mcfarland RN Long-term current use of opiate analgesic (Primary Dx) 07/28/2025 Travel 07/10/2025 Results Follow-Up [address] [place] [address] Mona Chan MD D Dimer High Sensitivity, CT Abdomen w/ Contrast 07/10/2025 Orders Only GENERIC EXTERNAL DATA DEPARTMENT Provider, Generic External Data 07/10/2025 Refill [facility] [place] [address] Milana Mata DO Chronic neck and back pain 07/09/2025 11:15 AM EDT Office Visit [facility] [place] [address] Mona Chan MD Mid back pain on right side (Primary Dx); Pleuritic pain; Right flank pain; Essential hypertension 07/09/2025 Travel 07/09/2025 Telephone [facility] [address] Milana Mata DO Appointment Request 07/08/2025 Results Follow-Up [address] [address] Willy Rock MD CBC auto differential, Comprehensive Metabolic Panel, Urinalysis Complete, XR Chest 2 Views 07/07/2025 Orders Only GENERIC EXTERNAL DATA DEPARTMENT Provider, Generic External Data 07/07/2025 Telephone [facility] [place] [address] Milana Mata DO Results 07/06/2025 7:40 PM EDT Office Visit [facility] [place] [address] Willy Rock MD Mid back pain on right side (Primary Dx) 07/06/2025 Travel 07/06/2025 Telephone [facility] [place] [address] Milana Mata DO Nurse Triage 07/06/2025 Refill [facility] [address] [facility] [place] [place] [address] Milana Mata DO Type 2 diabetes mellitus without complication, without long-term current use of insulin ([facility]) 06/25/2025 Refill [facility] [address] [place], [place] [address] [address] Milana Mata DO Seasonal allergic rhinitis, unspecified trigger 06/04/2025 Refill [facility] [address] [place], [place] [address] [address] Milana Mata DO Chronic neck and back pain 06/02/2025 Refill [facility] [address] [place], [place] [address] [address] Milana Mata DO Hyperlipidemia, unspecified hyperlipidemia type 05/27/2025 Refill [facility] [address] [place], [place] [address] [address] Milana Mata DO 05/20/2025 Orders Only [facility] [address] [place], [place] [address] [address] Milana Mata DO 05/12/2025 Orders Only [facility] [address] [place] [address] Milana Mata DO 05/11/2025 11:00 AM EDT [facility] [place] [address] Justyn Mondragon MD Acute intractable headache, unspecified headache type (Primary Dx); Neck pain; Right facial numbness 05/11/2025 9:00 AM EDT Clinical Support [facility] [address] [place] [address] Stacia Mcfarland, RN Long-term current use of opiate analgesic (Primary Dx) 05/11/2025 Refill [facility] [address] [place] [address] Stacia Mcfarland, registered diet technician neck and back pain 05/11/2025 Travel from Last 3 Months Immunizations Immunization Administration [...] your housing situation today? I have [place] 08/10/[address] you li [...] Mass Index 33.66 08/10/2025 11:13 AM EDT Plan of Treatment Upcoming Encounters Date Type Department Care Team (Late st Contact Info) Description 10/28/2025 10:00 AM EST Clinical Support [address] [address] Stacia Mcfarland, RN Health Maintenance Due Date Last Done Comments CT Colonography 1969 Dental Oral Exam 1969 Dental Prophylaxis 1969 Dental X-Ray: Full Mouth 1969 FIT DNA/Cologuard 1969 Sigmoidoscopy 1969 Diabetes: Foot Exam 1979 FIT 11/15/2024 11/15/2023 FOBT 11/15/2024 11/15/2023 Influenza Vaccine (#1) 2025 , 10/10/2023, 09/29/2022, Additional history exists Diabetes: Hemoglobin A1C 07/08/2025 025, 12/31/2024, 07/28/2024, Additional history exists Diabetes: Urine Protein Screening 07/28/2025 07/28/2024, 09/20/2021 Lipid Panel 07/28/2025 07/28/2024, 06, 08/30/2022, Additional history exists Dental X-Ray: Bitewings 08/22/2025 08/21/2024 Eye Exam 11/26/2025 11/26/2023, 02/2024, 11/26/2023, Additional history exists Alcohol/Substance Use Screening 12/31/2025 12/31/2024 Depression Monitoring 02/08/2026 08/10/2025, 025 Disability Screening 03/20/2026 03/20/2025 SDOH Screening 08/10/2026 08/10/2025 Tobacco Screening 08/10/2026 08/10/2025 Colonoscopy 04/19/2028 04/19/2023 Colorectal Cancer Screening 04/19/2028 [...] Associated Diagnosis Comments XR SHOULDER 2+ VIEWS LEFT Routine 08/10/2025 1:20 PM EDT Polyarthralgia XR SHOULDER 2+ VIEWS RIGHT Routine 08/10/2025 1:20 PM EDT Polyarthralgia XR HAND 3+ VIEWS RIGHT Routine 1:02 PM EDT Polyarthralgia XR HAND 3+ VIEWS LEFT Routine 08/10/2025 12:30 PM EDT Polyarthralgia POCT GLUCOSE Routine 08/10/2025 11:20 AM EDT Type 2 diabetes mellitus without complication, without long-term current use of insulin (HCC) POCT ABILIO-14 URINE DRUG SCREEN Routine 07/28/2025 10:20 AM EDT Long-term current use of opiate analgesic CT ABDOMEN W CONTRAST STAT 07/21/2025 9:51 AM EDT Mid back pain on right side Pleuritic pain CT CHEST W CONTRAST STAT 07/21/2025 9 :51 AM EDT Mid back pain on right side Pleuritic pain IMMUNOGLOBULIN E Routine 07/10/2025 9:01 AM EDT [...] Relevant to Health Maintenance Results * XR Shoulder 2+ Views Right (08/10/2025 1:20 PM EDT) Anatomical Region Laterality Modality Upper Extremities, Shoulder Right Radi ographic Imaging 08/10/2025 1:20 PM EDT Narrative 08/10/2025 1:33 PM EDT [address] [address] XRay Report Signed Patient: Reynaldo Osuna MR#: [id number] : 1970 Acct:[id number] Age/Sex: 55 / M ADM Date: 08/10/25 Loc: HO.HHCX Attending Dr: Milana Mata DO Ordering Physician: Milana Mata DO Date of Service: 08/10/25 Procedure(s): XR shoulder RT min 2V Accession Number(s): [id number] cc: Milana Mata DO Reason for Exam: [...] 08/10/25 1330 DD/ 1320 TD/TT: 08/10/25 1322 Field Administrator: Procedure Note Donotuseinterpreter, Image - 08/10/2025 [place] [address] XRay Report Signed Patient: Patrick Osuna#: [id number] : 1970Acct:[id number] Age/Sex: 55 / MADM Date: 08/10/25 Loc: HO.HHCX Attending Dr: Milana Mata DO Ordering Physician: Milana Mata DO Date of Service: 08/10/25 Procedure(s): XR shoulder RT min 2V Accession Number(s): [id number] cc: Milana Mata DO Reason for Exam: [...] MD Signed By: <Electronically signed by Esequiel Hraris MD in OV> 08/10/25 1330 DD/ 1320 TD/TT: 08/10/25 1322 Field Administrator: Milana Mata DO IMG XR PROCEDURES Edited Res ult - Final * XR Shoulder 2+ Views Left (08/10/2025 1:20 PM EDT) Anatomical Region Laterality Modality Upper Extremities, Shoulder Left Radi ographic Imaging 08/10/2025 1:20 PM EDT Narrative 08/10/2025 1:34 PM EDT [address] [address] XRay Report Signed Patient: Reynaldo Osuna MR#: [id number] : 1970 Acct:[id number] Age/Sex: 55 / M ADM Date: 08/10/25 Loc: .HHCX Attending Dr: Milana Mata DO Ordering Physician: Milana Mata DO Date of Service: 08/10/25 Procedure(s): XR shoulder LT min 2V Accession Number(s): [id number] cc: Milana Mata DO Reason for Exam: [...] 08/10/25 1331 DD/ 1320 TD/TT: 08/10/25 1322 Field Administrator: Procedure Note Donotnohemiinterpreter, Image - 08/10/[address] [address] XRay Report Signed Patient: Patrick Osuna#: [id number] : 1970Acct:[id number] Age/Sex: 55 / MADM Date: 08/10/25 Loc: HO.HHCX Attending Dr: Milana Mata DO Ordering Physician: Milana Mata DO Date of Service: 08/10/25 Procedure(s): XR shoulder LT min 2V Accession Number(s): [id number] cc: Milana Mata DO Reason for Exam: [...] 08/10/25 1331 DD/ 1320 TD/TT: 08/10/25 1322 Field Administrator: Milana Mata DO IMG XR PROCEDURES Edited Res ult - Final * XR Hand 3+ Views Right (08/10/2025 1:02 PM EDT) Anatomical Region Laterality Modality Upper Extremities, Hand Right Radiogra phic Imaging 08/10/2025 1:02 PM EDT Narrative 08/10/2025 1:32 PM EDT [address] [address] XRay Report Signed Patient: Reynaldo Osuna MR#: [id number] : 1970 Acct:[id number] Age/Sex: 55 / M ADM Date: 08/10/25 Loc: JAY Attending Dr: Milana Mata DO Ordering Physician: Milana Mata DO Date of Service: 08/10/25 Procedure(s): XR hand RT min 3V Accession Number(s): [id number] cc: Milana Mata DO Reason for Exam: [...] 08/10/25 1330 DD/ 1302 TD/TT: 08/10/25 1322 Field Administrator: Procedure Note Donotuseinterpreter, Image - 08/10/[address] [address] XRay Report Signed Patient: Reynaldo OsunaMR#: [id number] : 1970Acct:[id number] Age/Sex: 55 / MADM Date: 08/10/25 Loc: JAY Attending Dr: Milana Mata DO Ordering Physician: Milana Mata DO Date of Service: 08/10/25 Procedure(s): XR hand RT min 3V Accession Number(s): [id number] cc: Milana Mata DO Reason for Exam: [...] 08/10/25 1330 DD/ 1302 TD/TT: 08/10/25 1322 Field Administrator: Milana Mata DO IMG XR PROCEDURES Edited Res ult - Final * XR Hand 3+ Views Left (08/10/2025 12:30 PM EDT) Anatomical Region Laterality Modality Upper Extremities, Hand Left Radiogra phic Imaging 08/10/2025 12:3 0 PM EDT Narrative 08/10/2025 1:32 PM EDT [address] [address] XRay Report Signed Patient: Reynaldo Osuna MR#: [id number] : 1970 Acct:[id number] Age/Sex: 55 / M ADM Date: 08/10/25 Loc: HO.HHCX Attending Dr: Milana Mata DO Ordering Physician: Milana Mata DO Date of Service: 08/10/25 Procedure(s): XR hand LT min 3V Accession Number(s): [id number] cc: Milana Mata DO Reason for Exam: [...] 08/10/25 1330 DD/ 1230 TD/TT: 08/10/25 1232 Field Administrator: Procedure Note Donotuseinterpreter, Image - 08/10/2025 [place] [address] XRay Report Signed Patient: Patrick Osuna#: [id number] : 1970Acct:[id number] Age/Sex: 55 / MADM Date: 08/10/25 Loc: HO.HHCX Attending Dr: Milana Mata DO Ordering Physician: Milana Mata DO Date of Service: 08/10/25 Procedure(s): XR hand LT min 3V Accession Number(s): [id number] cc: Milana Mata DO Reason for Exam: [...] 08/10/25 1330 DD/ 1230 TD/TT: 08/10/25 1232 Field Administrator: Milana Mata DO IMG XR PROCEDURES Edited Res ult - Final * POCT Glucose (08/10/2025 11:20 AM EDT) Glucose Blood, POC 130 60 - 200 mg/dL QC Media Lot # [id number] Lot# Expiration Date Blood Capillary blood specimen / Unknown 08/10/2025 11:20 AM EDT Milana Mata DO POINT OF CARE TEST ENTER/MITZI T ORDERABLES Final Result * POCT ABILIO-14 Urine Drug Screen (07/28/2025 10:20 AM EDT) Only the most recent of2 resultswithin the time period is included. THC Negative Negative Cocaine Screen, Urine Negative [...] obtained by clean catch procedure / Unknown 07/28/2025 10:20 AM EDT Narrative Stacia Mcfarland RN - 07/28/2025 10:20 AM EDT UTOX cup Lot#[id number] Exp. 07/28/26 Internal Pass Control Milana Mata DO POINT OF CARE TEST ENTER/MITZI T ORDERABLES Final Result * CT Abdomen w/ Contrast (07/21/2025 9:51 AM EDT) Anatomical Region Laterality Modality Body, Abdomen Computed Tomogra phy 07/21/2025 9:51 AM EDT Narrative 07/21/2025 10:34 AM EDT [address] [address] [address] Scan Report Signed Patient: Reynaldo Osuna MR#: [id number] : 1970 Acct:[id number] Age/Sex: 55 / M ADM Date: 07/21/25 Loc: HO.CT Attending Dr: Mona Webber MD Ordering Physician: Mona Chan MD Date of Service: 07/21/25 Procedure(s): CT abdomen w IV con Accession Number(s): [id number] cc: Mona Chan MD Report Number: [id number]: Total DLP = 343.00 mGy-cm Reason for Exam: mid back pain on right side EXAMINATION: CT ABDOMEN WITH CONTRAST CLINICAL INFORMATION: mid back pain on right side COMPARISON: January 06, 2025 TECHNIQUE: Contiguous axial thin section helical images of the abdomen were performed following the administration of oral contrast and mL of Omnipaque 350 intravenous contrast. The data set was reformatted in the coronal and sagittal planes and reviewed on an independent workstation. This CT examination was performed using dose optimization techniques as appropriate, variously including the following: *Automated exposure control *Adjustment of mA and/or kV according to patient size (this includes techniques or standardized protocols for targeted exams where dose is matched to indication/reason for exam; i.e. extremities or head) *Use of iterative reconstruction technique FINDINGS: LUNG BASES: See report CT chest from same day. Clear LIVER, GALLBLADDER, AND BILIARY TREE: There are several hypoattenuating lesions that are too small to characterize but probably represent simple hepatic cysts. The gallbladder is unremarkable. There is no biliary ductal dilation. PANCREAS: Unremarkable SPLEEN: Unremarkable ADRENAL GLANDS AND KIDNEYS: Adrenal glands are unremarkable. There are numerous parapelvic cysts in the left kidney. No stones identified. No hydronephrosis is present. BOWEL LOOPS: There are a few pseudodiverticula at the junction of descending and sigmoid colon. LYMPH NODES: Unremarkable VASCULAR: Unremarkable. BONES: Again seen is a chronic mild superior endplate compression fracture of T9. There is also possible mild disc. Endplate compression fracture of T12. Mild multilevel degenerative changes are present in the lower thoracic and lumbar spine. There is facet sclerosis on the left at L5. CT/CT abdomen w IV con IMPRESSION: Mild chronic compression fractures of T9 and T12. Mild multilevel degenerative changes are present in the thoracolumbar spine. Fleischner guidelines were followed. Electronically signed by: Zeke Arzate MD 07/21/2025 10:31 AM EDT Dictated By: Zeke Arzate MD Signed By: <Electronically signed by Zeke Arzate MD in OV> 07/21/25 1031 DD/ 0951 TD/TT: 07/21/25 1013 Field Administrator: Procedure Note Donotuseinterpreter, Image - 07/21/[address] [place] [address] [address] Scan Report Signed Patient: Patrick Osuna#: [id number] : 1970Acct:[id number] Age/Sex: 55 / MADM Date: 07/21/25 Loc: HO.CT Attending Dr: Mona Webber MD Ordering Physician: Mona Chan MD Date of Service: 07/21/25 Procedure(s): CT abdomen w IV con Accession Number(s): [id number] cc: Mona Chan MD Report Number: [id number]: Total DLP = 343.00 mGy-cm Reason for Exam: mid back pain on right side EXAMINATION: CT ABDOMEN WITH CONTRAST CLINICAL INFORMATION: mid back pain on right side COMPARISON: January 06, 2025 TECHNIQUE: Contiguous axial thin section helical images of the abdomen were performed following the administration of oral contrast and mL of Omnipaque 350 intravenous contrast. The data set was reformatted in the coronal and sagittal planes and reviewed on an independent workstation. This CT examination was performed using dose optimization techniques as appropriate, variously including the following: *Automated exposure control *Adjustment of mA and/or kV according to patient size (this includes techniques or standardized protocols for targeted exams where dose is matched to indication/reason for exam; i.e. extremities or head) *Use of iterative reconstruction technique FINDINGS: LUNG BASES: See report CT chest from same day. Clear LIVER, GALLBLADDER, AND BILIARY TREE: There are several hypoattenuating lesions that are too small to characterize but probably represent simple hepatic cysts. The gallbladder is unremarkable. There is no biliary ductal dilation. PANCREAS: Unremarkable SPLEEN: Unremarkable ADRENAL GLANDS AND KIDNEYS: Adrenal glands are unremarkable. There are numerous parapelvic cysts in the left kidney. No stones identified. No hydronephrosis is present. BOWEL LOOPS: There are a few pseudodiverticula at the junction of descending and sigmoid colon. LYMPH NODES: Unremarkable VASCULAR: Unremarkable. BONES: Again seen is a chronic mild superior endplate compression fracture of T9. There is also possible mild disc. Endplate compression fracture of T12. Mild multilevel degenerative changes are present in the lower thoracic and lumbar spine. There is facet sclerosis on the left at L5. CT/CT abdomen w IV con IMPRESSION: Mild chronic compression fractures of T9 and T12. Mild multilevel degenerative changes are present in the thoracolumbar spine. Fleischner guidelines were followed. Electronically signed by: Zeke Arzate MD 07/21/2025 10:31 AM EDT Dictated By: Zeke Arzate MD Signed By: <Electronically signed by Zeke Arzate MD in OV> 07/21/25 1031 DD/ 0951 TD/TT: 07/21/25 1013 Field Administrator: Mona Webber MD IMG CT PROCEDURES Edited Result - Final * CT Chest w/ Contrast (07/21/2025 9:51 AM EDT) Only the most recent of2 resultswithin the time period is included. Anatomical Region Laterality Modality Body, Chest Computed Tomogra phy 07/21/2025 9:51 AM EDT Narrative 07/21/2025 10:28 AM EDT [address] [address] [address] Scan Report Signed Patient: Reynaldo Osuna MR#: [id number] : 1970 Acct:[id number] Age/Sex: 55 / M ADM Date: 07/21/25 Loc: HO.CT Attending Dr: Mona Webber MD Ordering Physician: Mona Chan MD Date of Service: 07/21/25 Procedure(s): CT chest w IV con Accession Number(s): [id number] cc: Mona Chan MD Report Number: [id number]: Total DLP = 343.00 mGy-cm Reason for Exam: Pleurodynia EXAMINATION: CT CHEST WITH CONTRAST CLINICAL INFORMATION: Pleurodynia COMPARISON: May 12, 2025 and June 03, 2023 TECHNIQUE: Multidetector volumetric CT imaging of the chest was obtained after the administration of 85 mL of Omnipaque 350 intravenous contrast without [...] or head) *Use of iterative reconstruction technique FINDINGS: LUNGS: Axial image 56/157: Again seen is a solid pulmonary nodule in the anterior segment right upper lobe, located laterally and measuring 2 mm. Lungs are clear and unremarkable otherwise. MEDIASTINUM: The mediastinum is normal. PLEURA: There is no pleural effusion. No pleural mass or thickening. AXILLA: No lymphadenopathy. UPPER ABDOMEN: See the CT abdomen and pelvis report from the same day. OSSEOUS STRUCTURES: Again seen is a chronic mild superior endplate compression fracture of T9. There is multilevel mild disc space narrowing with vacuum phenomenon mid to lower thoracic spine. CT/CT chest w IV con IMPRESSION: Stable 2 mm subpleural pulmonary nodule anterior segment right upper lobe. It is unchanged from 2022 and is no further follow-up. Chronic mild compression fracture of the superior endplate of T9. Mild multilevel degenerative disc disease. Fleischner guidelines were followed. Electronically signed by: Zeke Arzate MD 07/21/2025 10:25 AM EDT Dictated By: Zeke Arzate MD Signed By: <Electronically signed by Zeke Arzate MD in OV> 07/21/25 1025 DD/ 0951 TD/TT: 07/21/25 1013 Field Administrator: Procedure Note Donotuseinterpreter, Image - 07/21/[address] [place] [address] [address] Scan Report Signed Patient: Patrick Osuna#: [id number] : 1970Acct:[id number] Age/Sex: 55 / MADM Date: 07/21/25 Loc: HO.CT Attending Dr: Mona Webber MD Ordering Physician: Mona Chan MD Date of Service: 07/21/25 Procedure(s): CT chest w IV con Accession Number(s): [id number] cc: Mona Chan MD Report Number: [id number]: Total DLP = 343.00 mGy-cm Reason for Exam: Pleurodynia EXAMINATION: CT CHEST WITH CONTRAST CLINICAL INFORMATION: Pleurodynia COMPARISON: May 12, 2025 and June 03, 2023 TECHNIQUE: Multidetector volumetric CT imaging of the chest was obtained after the administration of 85 mL of Omnipaque 350 intravenous contrast without [...] or head) *Use of iterative reconstruction technique FINDINGS: LUNGS: Axial image 56/157: Again seen is a solid pulmonary nodule in the anterior segment right upper lobe, located laterally and measuring 2 mm. Lungs are clear and unremarkable otherwise. MEDIASTINUM: The mediastinum is normal. PLEURA: There is no pleural effusion. No pleural mass or thickening. AXILLA: No lymphadenopathy. UPPER ABDOMEN: See the CT abdomen and pelvis report from the same day. OSSEOUS STRUCTURES: Again seen is a chronic mild superior endplate compression fracture of T9. There is multilevel mild disc space narrowing with vacuum phenomenon mid to lower thoracic spine. CT/CT chest w IV con IMPRESSION: Stable 2 mm subpleural pulmonary nodule anterior segment right upper lobe. It is unchanged from 2022 and is no further follow-up. Chronic mild compression fracture of the superior endplate of T9. Mild multilevel degenerative disc disease. Fleischner guidelines were followed. Electronically signed by: Zeke Arzate MD 07/21/2025 10:25 AM EDT RP Dictated By: Zeke Arzate MD Signed By: <Electronically signed by Zeke Arzate MD in OV> 07/21/25 1025 DD/ 0951 TD/TT: 07/21/25 1013 Field Administrator: Mona Webber MD IMG CT PROCEDURES Edited Result - Final * D Dimer High Sensitivity (07/10/2025 9:01 AM EDT) [facility] D Dimer High Sensitivity <150 NG/ML [facility] Comment:D-DIMER HS REFERENCE RANGENote: Our assay reports D-Dimer Units (D- DU).The cut-off value for venous thromboembolic (VTE) disease is230 ng/mL. This value has a very high negative predictivevalue when the patient has a low to moderate clinicalprobability of VTE.The upper limit of normal is 243 ng/mL. Blood 07/10/2025 9:01 AM EDT 07/10/2025 11:12 AM EDT us Mona Webber MD LAB BLOOD ORDERAB LES Final Result [facility] [address] [place] [phone] * (ABNORMAL) CBC auto differential (07/10/2025 9:01 AM EDT) Only the most recent of2 resultswithin the time period is included. White Blood Count 6.6 4.8 - 10.8 X10*3/uL [facility] Red Blood Count 4.71 4.60 - 5.80 X10*6/uL [facility] Hemoglobin 12.3(L) 14.0 - 18.0 g/dl [facility] Hematocrit 37.9(L) 42.0 - 52.0 % [facility] Mean Corpuscular Volume 80.5 80.0 - 98.0 fL [facility] Mean Corpuscular Hemoglobin 26.1(L) 27.0 - 33.0 pg [facility] Mean Corpuscular HGB Conc 32.5 31.0 - 36.0 g/dl [facility] Red Cell Distribution Width 14.6 11.0 - 16.0 % [facility] Platelet Count 247 160 - 400 X10*3/uL [facility] Mean Platelet Volume 12.3 9.4 - 12.4 fL [facility] Neutrophils Percent Auto 62.9 45 - 73 % [facility] Imm Gran Pct Auto 0.3 0.0 - 0.4 % [facility] Lymphocytes Percent Auto 27.5 20 - 40 % [facility] Monocytes Percent Auto 7.0 2 - 11 % [facility] Eosinophils Percent Auto 1.8 0 - 4 % [facility] Basophils Percent Auto 0.5 0 - 2 % [facility] NRBC Pct Auto 0.0 0.0 - 0.2 /100WBC [facility] Neutrophils Absolute Auto 4.1 2.0 - 8.3 x10*3/uL [facility] Imm Gran Abs Auto 0.02 0.00 - 0.03 X10*3/uL [facility] Lymphocytes Absolute Auto 1.8 1.2 - 4.9 X10*3/uL [facility] Monocytes Absolute Auto 0.5 0.1 - 1.2 X10*3/uL [facility] Eosinophils Absolute Auto 0.1 0.0 - 0.4 X10*3/uL [facility] Basophils Absolute Auto 0.0 0.0 - 0.2 X10*3/uL [facility] NRBC Abs Auto 0.000 0.0 - 0.012 X10*3/uL [facility] 07/10/2025 9:01 AM EDT 07/10/2025 11:19 AM EDT us Generic External Data Provider LAB BLOOD ORDERAB LES Final Result Performing Organization Address [facility]/ZIP Co de Phone Number [facility] [address] [place] [phone] * (ABNORMAL) Sed Rate by Modified Westergren (07/10/2025 9:01 AM EDT) Only the most recent of2 resultswithin the time period is included. Erythrocyte Sedimentation Rate 25(H) 0 - 15 MM/HR [facility] Comment:Patients with polycy themia and many hemoglobin abnormalitiesmay have depressed sed rates whereas patients with anemiamay have elevated sed rates. 07/10/2025 9:01 AM EDT 07/10/2025 11:12 AM EDT us Generic External Data Provider LAB BLOOD ORDERAB LES Final Result Performing Organization Address [facility] de Phone Number [facility] [address] [place] [phone] * Immunoglobulin E (07/10/2025 9:01 AM EDT) Only the most recent of2 resultswithin the time period is included. Immunoglobulin E 72 <DT=332 kU/L [facility] Comment:THIS TEST WAS PERFOR MED AT:[facility] [address] [place] [phone] VILLALPANDO MD 07/10/2025 9:01 AM EDT 07/10/2025 11:12 AM EDT us Generic External Data Provider LAB BLOOD ORDERAB LES Final Result Performing Organization Address [facility] Co de Phone Number [facility] [address] [place] [phone] * XR Chest 2 Views (07/07/2025 9:30 AM EDT) Anatomical Region Laterality Modality Chest Radiographic Marybel ging 07/07/2025 9:30 AM EDT Narrative 07/07/2025 9:39 AM EDT [address] [address] XRay Report Signed Patient: Reynaldo Osuna MR#: [id number] : 1970 Acct:[id number] Age/Sex: 55 / M ADM Date: 07/07/25 [facility]: Chance Ortiz MD Ordering Physician: Willy Rock MD Date of Service: 07/07/25 Procedure(s): XR chest 2V Accession Number(s): [id number] cc: Milana Mata DO; Willy Rock MD [...] in OV> 07/07/2535 DD/ 9 TD/TT: 07/07/25930 Field Administrator: Procedure Note Donotuseinterpreter, Image - 07/07/[address] [address] XRay Report Signed Patient: Reynaldo OsunaMR#: [id number] : 1970Acct:[id number] Age/Sex: 55 / MADM Date: 07/07/25 Loc: HO.HHCX Attending Dr: Chance Ortiz MD Ordering Physician: Willy Rock MD Date of Service: 07/07/25 Procedure(s): XR chest 2V Accession Number(s): [id number] cc: Milana Mata DO; Willy Rock MD [...] in OV> 07/07/25934 DD/ 9 TD/TT: 07/07/25930 Field Administrator: Willy Rock MD IMG XR PROCEDURES Edited Result - Final * Rast Allergen (07/07/2025 9:24 AM EDT) Rast Allergen SEE NOTE [facility] Comment:SEE SCANNED REPORT I N EMR 07/07/2025 9:24 AM EDT 07/13/2025 12:05 PM EDT Narrative [facility] - 07/13/2025 12:06 PM EDT DOG DANDER REFLEX us Generic External Data Provider HISTORICAL/NON OR DERABLE LABS Final Result [facility] [address] [place] [phone] * Respiratory Allergy Profile Region I (07/07/2025 9:24 AM EDT) Mouse Urine Proteins (E72) IgE <0.10 [facility] Class 0 [facility] Cockroach (I6) IgE 0.19 [facility] Class 0/1 [facility] Dermatophagoides farinae (D2) IgE 0.21 [facility] Class 0/1 [facility] Cat Dander (E1) IgE <0.10 [facility] Class 0 [facility] Dog Dander (E5) IgE 0.35 [facility] Class 1 [facility] Bhupinder Grass (G6) IgE <0.10 [facility] Class 0 [facility] Cladosporium herbarum (M2) IgE <0.10 [facility] Class 0 [facility] Aspergillus Fumigatis (M3) IgE <0.10 [facility] Class 0 [facility] Alternaria alternata (M6) IgE <0.10 [facility] Class 0 [facility] [place] (t6) IgE <0.10 [facility] Class 0 [facility] Weinert (T7) IgE 7.70 [facility] Class 3 [facility] [place] (T10) IgE <0.10 [facility] Class 0 [facility] [place] (T11) IgE <0.10 [facility] Class 0 [facility] [place] (T14) IgE <0.10 [facility] Class 0 [facility] [place] (t15) IgE 016 [facility] Class 0/1 [facility] [place] (T70) IgE <0.10 [facility] Class 0 [facility] Common Ragweed (Short) (W1) IgE <0.10 [facility] Class 0 [facility] Mugwort (w6) IgE <0.10 [facility] Class 0 [facility] Dermatophagoides pteronyssinus (D1) IgE 0.25 [facility] Class 2 [facility] B[place] Grass (g2) IgE <0.10 [facility] Class 0 [facility] Penicillium Notatum (M1) IgE <0.10 [facility] Class 0 [facility] Birch (T3) IgE 40.20 [facility] Class 4 [facility] Elm (t8) IgE <0.10 [facility] Class 0 [facility] Maple ([place]) (T1) IgE 2.12 [facility] Class 2 [facility] Rough Pigweed (W14) IgE <0.10 [facility] Class 0 [facility] Sheep [place] (W18) IgE <0.10 [facility] Class 0 [facility] Allergen Comment See Below [facility] Comment: Specific Level of AllergenIGE Class [...] and its analyticalperformance characteristics have been determined by[employer]. It has not been cleared or approvedby the U.S. Food and Drug Administration. This assayhas been validated pursuant to the CLIA regulationsand is used for clinical purposes.THIS TEST WAS PERFORMED AT:[facility] [address] [place] [phone] VILLALPANDO MD 07/07/2025 9:24 AM EDT 07/07/2025 11:20 AM EDT us Generic External Data Provider LAB BLOOD ORDERAB LES Final Result Performing Organization Address [facility] de Phone Number [facility] [address] [place] [phone] * (ABNORMAL) Urinalysis Complete (07/07/2025 9:24 AM EDT) Color Urine Yellow [facility] Appearance Urine Turbid [facility] PH 5.5 5.0 - 9.0 [facility] Glucose Urine UA Negative Negative mg/dL [facility] Urine Blood Negative Negative [facility] Specific [place] - Urine >=1.030(H) 1.005 - 1.025 [facility] Urine Protein Negative Neg-Trace mg/dL [facility] Urine Ketones Negative Negative mg/dL [facility] Nitrite Urine Negative Negative [facility] Leukocyte Esterase Urine Negative Negative [facility] RBC Urine 0-2 0 - 2 /HPF [facility] Urine WBC 0-5 0 - 5 /HPF [facility] Urine Squamous Epithelial Cell 0-2 0 - 2 /HPF [facility] Urine Bacteria None Seen None Seen [facility] Hyaline Casts, Urine 0-2 0 - 2 /LPF [facility] Urine (Urine, Random) 07/07/2025 9:24 AM EDT 07/07/2025 12:18 PM EDT Willy Rock MD LAB URINE ORDERABLES Final Resul t Performing Organization Address [facility] Co de Phone Number [facility] [address] [place] [phone] * (ABNORMAL) C-reactive Protein (07/07/2025 9:24 AM EDT) C Reactive Protein 1.04(H) < or = 0.50 mg/dL [facility] Blood Venous blood specimen / Unknown 07/07/2025 9:24 AM EDT 07/07/2025 11:20 AM EDT us Milana Mata DO LAB BLOOD ORDERABLES Final R esult [facility] [address] [place] [phone] * (ABNORMAL) Comprehensive Metabolic Panel (07/07/2025 9:24 AM EDT) Sodium 140 135 - 145 mmol/L [facility] Potassium 3.9 3.3 - 5.1 mmol/L [facility] Chloride 104 96 - 108 mmol/L [facility] Carbon Dioxide 30(H) 22 - 29 mmol/L [facility] Anion Gap 10(L) 12 - 20 [facility] Urea Nitrogen (BUN) 14 9 - 16 mg/dL [facility] Creatinine, Serum 0.78 0.5 - 1.4 mg/dL [facility] Estimated Glomerular Filt Rate >60 [facility] Comment:Chronic Kidney Disea se: Estimated GFR < 60 mL/min/1.14y5Ejaakn Kidney Disease: Estimated GFR < 15 mL/min/1.73m2 Glucose 96 60 - 115 mg/dL [facility] Calcium 9.1 8.4 - 10.2 mg/dL [facility] Bilirubin, Total 0.4 0.0 - 1.0 mg/dL [facility] Aspartate Amino Transferase 22 5 - 37 U/L [facility] Alanine Aminotransferase 23 0 - 40 U/L [facility] Total Protein 7.3 6.5 - 8.0 g/dL [facility] Albumin Level 4.4 3.5 - 5.0 g/dL [facility] Alkaline Phosphatase 103 39 - 117 U/L [facility] Blood Venous blood specimen / Unknown 07/07/2025 9:24 AM EDT 07/07/2025 11:20 AM EDT us Willy Rock MD LAB BLOOD ORDERABLES Final Resul t [facility] [address] [place] [phone] * POCT Creatinine GFR (05/12/2025 9:10 AM EDT) Pathologist [facility] POCT Creatinine 0.9 0.5 - 1.4 mg/dL [facility] GFR POC >60 [facility] Comment:Chronic Kidney Disea se: Estimated GFR < 60 mL/min/1.23a2Oaqkcg Kidney Disease: Estimated GFR < 15 mL/min/1.73m2 05/12/2025 9:10 AM EDT 05/13/2025 8:13 AM EDT Narrative [facility] - 05/13/2025 8:14 AM EDT [id number].ENEDINAN Milana Mata DO LAB POINT OF CARE TEST DOCKE D DEVICE ORDERABLES Final Result [facility] [address] [place] [phone] * (ABNORMAL) POCT HGB A1C (01/05/2025 12:26 PM EDT) [facility] Hemoglobin A1C 6.4(A) 4.0 - 6.0 % QC Media Lot # [id number] Lot# Expiration Date Blood 01/05/2025 12:2 6 PM EDT Milana Mata DO POINT OF CARE TEST ENTER/MITZI T ORDERABLES Final Result * Hepatitis C Antibody with Reflex to HCV, RNA, Quantitative, Real-Time PCR (07/28/2024 10:21 AM EDT) Pathologist [facility] Hepatitis C Antibody Nonreactive Nonreactive [facility] Comment:Antibodies to HCV no t detected; does not exclude early acuteHCV infection. Blood Venous blood specimen / Unknown 07/28/2024 10:21 AM EDT 07/28/2024 11:15 AM EDT Milana Mata DO LAB BLOOD ORDERABLES Final R esult Performing Organization Address City/[facility]/ZIP Co de Phone Number [facility] [address] [place] [phone] * HIV-1/2 Antigen and Antibodies, Fourth Generation, with Reflexes (07/28/2024 10:21 AM EDT) HIV AB/AG Nonreactive Nonreactive [facility] Comment:HIV-1 p24 Ag and/or HIV-1/HIV-2 Ab not detected.A test result that is nonreactive does not exclude thepossibility of exposure to or infection with HIV-1 and/orHIV-2. Nonreactive results in this assay for individualswith prior exposure to HIV-1 and/or HIV-2 may be due toantigen and antibody levels that are below the limit ofdetection of this assay.The [employer] HIV Ag/Ab Combo assay result andsupplemental assay results should be interpreted inconjunction with the patient's clinical presentation,history and other laboratory results. If the results areinconsistent with clinical evidence, additional testing issuggested to confirm the result. Blood Venous blood specimen / Unknown 07/28/2024 10:21 AM EDT 07/28/2024 11:15 AM EDT us Milana Banuelosbrysonburt SALVADOR LAB BLOOD ORDERABLES Final R uday Performing Organization Address City/[facility]/ZIP Co de Phone Number [facility] [address] [place] [phone] * (ABNORMAL) Lipid Panel, Standard (07/28/2024 10:21 AM EDT) Triglycerides 116 <150 mg/dL [facility] Comment:Desirable Triglyceri de: less than 150 mg/dLBorderline High Triglyceride 150-199 mg/dLHigh Triglyceride: 200-499 mg/dLVery High Triglyceride: greater than or equal to 5OO mg/dL Cholesterol 127 <200 mg/dL [facility] Comment:Desirable Cholestero l: less than 200 mg/dLBorderline High Cholesterol: 200-239 mg/dLHigh Cholesterol: greater than 239 mg/dL LDL Cholesterol Calculated 67 <100 mg/dL [facility] Comment:Desirable LDL: less than 100 mg/dLNear Optimal/Above Optimal LDL: 110- 129 mg/dLBorderline High LDL: 130-159 mg/dLHigh LDL: 160-189 mg/dLVery High LDL: greater than or equal to 190 mg/dL HDL Cholesterol 37(L) >40 mg/dL [facility] Comment:Desirable HDL: great er than 40 mg/dL Note: This HDL assay may give artificially low results in patients with liver disease. Blood Venous blood specimen / Unknown 07/28/2024 10:21 AM EDT 07/28/2024 10:55 AM EDT us Milana Mata DO LAB BLOOD ORDERABLES Final R esult Performing Organization Address [facility] Co de Phone Number [facility] [address] [place] [phone] * Albumin, Random Urine W/Creatinine (07/28/2024 10:13 AM EDT) Creatinine, Urine 102.76 mg/dL [facility] Microalbumin Urine <5.0 mg/L [facility] Microalbum Creatinine Ratio Ur TNP <30 ug/mg cr [facility] Comment:Unable to calculate albumin/creatinine ratio due to lowmicroalbumin or creatinine result. Urine (Urine, Random) 07/28/2024 10:13 AM EDT 07/28/2024 10:55 AM EDT Milana Mata DO LAB URINE ORDERABLES Final R esult Performing Organization Address [facility] Co de Phone Number [facility] [address] [place] [phone] * (ABNORMAL) Fecal Globin by Immunochemistry (11/15/2023 9:03 AM EST) Fecal Globin By Immunochemistry SEE NOTE(A) [facility] Comment:FECAL GLOBIN BY IMMU NOCHEMISTRY Micro Number: [id number] Test Status: Final Specimen Source: Not given Specimen Quality: Adequate Fecal Globin: DetectedTHIS TEST WAS PERFORMED AT:[facility] [address] [phone] VILLALPANDO MD Stool Rectal contents / Unknown 11/15/2023 9:03 AM EST 11/15/2023 12:27 PM EST [facility] LAB BODY FLUIDS AND STOOLS ORD ERABLES Final Result [facility] [address] [place] [phone] * Colonoscopy (04/19/2023 2:32 PM EDT) Colonoscopy Normal Normal Comment:Repeat in 5 years Historical Provider HEALTH MAINTENANCE Final Result from Last 3 Months or Most Recently Relevant to Health Maintenance Insurance [facility] C[place] ADULT Care Teams Aerial Gunner Superintendent Relationship Specialty Start Date End Date Milana Mata DO [address] [place] [phone] PCP - General Family Medicine 07/02/24
--- OUTSIDE RECORDS SUMMARY | 2025-08-11 09:10 | XMS_ITS | Patient Health Record ---
Author Organization [facility] Address [address] [place] [address] Care Team Providers Care Patient Financial Rep Name Role Phone Milana Mata M.D. Primary Care Provider Raphael Cortes Jr Unavailable [phone] Allergies Allergen (clinical drug ingredient) Drug/Non Drug Allergy documented on EMR Reaction Allergy Type Onset Date Status Penicillin Unknown Drug Allergy Active Results Component Value Reference Range Notes Complete Blood Count no Diff Reviewed date:01/06/2025 01:45:38 PM Interpretation: Performing Lab:[address] [address] Notes/Report: White Blood Count 6.3 4.8-10.8 X10*3/uL [...] Panel Reviewed date:01/06/2025 01:45:32 PM Interpretation: Performing Lab:[address] [address] Notes/Report: Bilirubin Total 0.3 0.0-1.0 mg/dL Bilirubin Direct 0.1 0.0-0.5 mg/dL Aspartate Amino Transferase 24 5-37 U/L Alanine Aminotransferase 20 0-40 U/L Total Protein 8.1 6.5-8.0 g/dL Albumin Level 4.3 3.5-5.0 g/dL Alkaline Phosphatase 99 39-117 U/L Blood Urea Nitrogen Reviewed date:01/06/2025 01:45:29 PM Interpretation: Performing Lab:[address] [address] Notes/Report: Blood Urea Nitrogen 13 9-16 mg/dL Creatinine Reviewed date:01/06/2025 01:45:24 PM Interpretation: Performing Lab:[address] [address] Notes/Report: Creatinine 0.78 0.5-1.4 mg/dL Estimated Glomerular Filt Rate > 60 Chronic Kidney Disease: Estimated GFR < 60 mL/min/1.73m2 Severe Kidney Disease: Estimated GFR < 15 mL/min/1.73m2 Lipase Reviewed date:01/06/2025 01:45:19 PM Interpretation: Performing Lab:[address] [address] Notes/Report: Lipase 20 8-78 U/L CT abdomen pelvis w con Reviewed date:01/06/2025 01:45:13 PM Interpretation: Performing Lab: Notes/Report: [address] [address] [address] Scan Report Signed Patient: Reynaldo Osuna MR#: [id number] : 1970 Acct:[id number] Age/Sex: 54 / M ADM Date: 01/06/25 Loc: HO.CT Attending Dr: Raphael Powell MD Ordering Physician: Raphael Powell MD Date of Service: 01/06/25 Procedure(s): CT abdomen pelvis w IV con Accession Number(s): [id number] cc: Raphael Powell MD; Milana Mata DO Report Number: [id number]: Total DLP = 565.00 mGy-cm EXAMINATION: CT [...] 01/06/25 1134 DD/ 1004 TD/TT: 01/06/25 1035 Private Branch Exchange Operator: Reason For Referral Referring Provider First Name Milana Referring Provider Last Name Adolfo Referred Organization [facility] Referred Provider Raphael Powell Jr Referred Address [address] [place] [address],[place] [address],[place], [place],[address], Referred Provider Specialty Gastroentero logy General Notes Katherine Kraus 2024 02:11:14 PM >requested [facility] referral from [facility] [phone] Referral Priority Routine Medications Medication SIG (Take, Route, Frequency, Duration) Notes Start Date End Date Status Ventolin HFA 108 (90 Base) MCG/ACT INHALE 2 PUFFS BY MOUTH EVERY 4 HOURS NEEDED FOR WHEEZING OR SHORTNESS OF BREATH Inhalation; Duration: 17 Days Active OXcarbazepine 300 MG 1 [...] our before morning meal Orally Once a day; Duration: 30 day(s) 11/12/2024 Active Eliquis 5 MG 1 tablet Orally Twic e a day; Duration: 30 day(s) Active Baclofen 10 MG TAKE 1 TABLET BY SNEHAL THREE TIMES DAILY IN THE MORNING, AT NOON, AND AT BEDTIME NEEDED FOR MUSCLE SPASMS Oral; Duration: 30 Days Active Trulicity 0.75 MG/0.5ML INJECT ONE PEN (=0.75MG) SUBCUTANEOUSLY ONCE A WEEK DIRECTED Subcutaneous; Duration: 28 Days Active cloNIDine HCl 0.2 MG 1 tablet Orally Onc e a day Active traMADol HCl 50 MG TAKE 1 TABLET BY SNEHAL TH EVERY TWELVE HOURS NEEDED FOR SEVERE PAIN Oral; Duration: 28 Days Active Fenofibrate 54 MG 1 tablet with food Orally Once a day Active Acetaminophen ER 650 MG TAKE 1 TABLET BY MOUTH EVERY 8 HOURS NEEDED FOR MILD PAIN DO NOT BREAK, CRUSH, DISSOLVE OR CHEW Oral; Duration: 20 Days Active hydroCHLOROthiazide 12.5 MG 1 [...] Problem Status W/U Status Risk Notes Problem Diverticulitis of colon (720514984) Diverticulitis of large intestine without perforation or abscess without bleeding (K57.32) Active confirmed Problem Generalized abdominal pain (695744751) Generalized abdominal pain (R10.84) Active confirmed Problem Diverticulitis (12331908) Diverticulitis (K57.92) Active confirmed Problem Family History of Cancer of Colon (Situation) (420789561) Family history of colon cancer (Z80.0) Active confirmed Problem Diverticulitis of colon (625080793) Acute diverticulitis (K57.92) Active confirmed Problem Gastroesophageal reflux disease (875728204) GERD without esophagitis (K21.9) Active confirmed Problem Essential hypertension (34137745) Hypertension, unspecified type (I10) Active confirmed Problem Abdominal bloating (finding) (630217213) Gas bloat syndrome (K92.89) Active confirmed Vital Signs Temperature 98.7 degrees Fahrenheit 05/13/2025 Blood pressure diastolic 01 mm Hg 05/13/2025 Height 65 in 05/13/2025 Blood pressure systolic 001 mm Hg 05/13/2025 Weight 200.6 lbs 05/13/2025 BMI 33.38 kg/m2 05/13/2025 Encounters Encounter Location Date Provider Diagnosis [facility] [address] [facility] [address] [place] [id number] 11/12/2024 Raphael Powell Jr Generalized abdominal pain R10.84 [facility] [address] [place] [address] 05/13/2025 Raphael Powell Jr GERD without esophagitis K21.9 ; Family history of colon cancer Z80.0 and Diverticulitis of large intestine without perforation or abscess without bleeding K57.32 [facility] [address] [place] [address] 01/06/2025 Raphael Powell Jr Assessments Encounter Date [...] we will get his records from [facility] where he had sigmoid resection. 05/13/2025 Family [...] Name:Raphael yi Jr, 05/17/2026 09:20:00 AM, [address] [place] [address], [address], [place], [address], Insurance Providers Payer Name Payer Address Payer Phone Subscriber Number Group Number Insured Name Patient Relationship to Insured Coverage Start Date Coverage End Date MEDICA[employer] OF [employer] [address] [place] [phone] [id number] REYNALDO SOARES Self - patient is the [...]
--- OUTSIDE RECORDS SUMMARY | 2025-08-11 09:10 | XMS_ITS | Encounter Summary ---
Author Organization [employer] Address [address] [facility] 7t [place] [address] Care Team Providers Care Spa Therapist Name Role Phone Campbell Salguero Primary Care Provider Unavail Sandra Mercado Primary Care Provider [phone] NameDaniel MD Primary Care Provider [phone] Milana Mata DO Primary Care Provider [phone] Reason for Visit * Reason Onset Date Comments Nurse Triage 05/28/2023 Encounter Details Date Type Department Care Team (Late st Contact Info) Description 05/28/2023 Telephone [facility] [address] [place] [address] Campbell Salguero AGNP Nurse Triage Social History [...] 9:23 AM EDT Call to Pt with [employer] Child Development Assistant ID [id number] Pt is given message from EVIN Salguero, [...] to urology. * Telephone Encounter - Yasmine Espazra RN - 05/28/2023 10:33 AM EDT Triage call Pt gives permission for Lissett DELACRUZ, to speak for Pt. PT was seen [...] accepted this outcome Please contact lissett at [phone] documented in this encounter Plan of Treatment Upcoming Encounters Date Type Department Care Team (Late st Contact Info) Description 10/28/2025 10:00 AM EST Clinical Support [facility] [address] [place] [address] Stacia Mcfarland, RN documented as of this encounter Visit Diagnoses Diagnosis Benign prostatic hyperplasia with incomplete bladder emptying- Primary documented in this encounter Additional Health Concerns Assessment Noted Time PHQ-9 Depression Total Score: 12 023 2:23 PM EDT documented as of this encounter Care Teams Spa Therapist Relationship Specialty Start Date End Date Campbell Salguero AGNP PCP - General Family Medicine 09/25/22 07/05/23 Sandra De Jesus FNP [address] [place] [address] PCP - General Family Medicine 07/06/23 06/23/24 Daniel Krause MD [address] [place] [address] PCP - General Internal Medicine 06/24/24 07/01/24 Milana Mata DO [address] [place] [address] PCP - General Family Medicine 07/02/24 documented as of this encounter
[2025-08-11 09:50] LABS: Hematocrit 39.1 % (42.0-52.0); Hemoglobin 12.3 g/dl (14.0-18.0); Mean Corpuscular HGB Conc 31.5 g/dl (31.0-36.0); Mean Corpuscular Hemoglobin 25.5 pg (27.0-33.0); Mean Corpuscular Volume 81.0 fL (80.0-98.0); NRBC Abs Auto 0.000 X10*3/uL (0.0-0.012); NRBC Pct Auto 0.0 /100WBC (0.0-0.2); Platelet Count 229 X10*3/uL (160-400); Red Blood Count 4.83 X10*6/uL (4.60-5.80); White Blood Count 6.5 X10*3/uL (4.8-10.8)
[2025-08-11 11:20] LABS: Microalbum/Creatinine Ratio Ur 3.4 ug/mg cr (<30)
[2025-08-11 11:53] LABS: Folate 6.7 ng/mL (> or = 4.0); Vitamin B12 336 pg/mL (200-900)
[2025-08-11 11:55] LABS: Alanine Aminotransferase 24 U/L (0-40); Albumin Level 4.5 g/dL (3.5-5.0); Alkaline Phosphatase 106 U/L (39-117); Anion Gap 10 (12-20); Aspartate Amino Transferase 20 U/L (5-37); Blood Urea Nitrogen 13 mg/dL (9-16); Calcium 9.4 mg/dL (8.4-10.2); Carbon Dioxide 30 mmol/L (22-29); Chloride 104 mmol/L (96-108); Cholesterol 125 mg/dL (<200); Estimated Glomerular Filt Rate > 60; HDL Cholesterol 44 mg/dL (>40); Iron 63 mcg/dL (45-160); Percent Iron Saturation 22 % (15-50); Potassium 3.9 mmol/L (3.3-5.1); Sodium 140 mmol/L (135-145); Total Iron Binding Capacity 284 mcg/dL (228-428); Total Protein 7.5 g/dL (6.5-8.0); Triglycerides 65 mg/dL (<150); Unsaturated Iron Binding 221 ug/dL
[2025-08-11 12:07] LABS: HBsAGNum1 0.38 S/CO (0.00-0.99); HIV Num 1 0.05 S/CO (0.00-0.99); Hepatitis B Surface Antigen Negative (Negative); ~HepC Num1 0.08 S/CO (0.00-0.79); ~Hepatitis B Surface Antibody REACTIVE (Nonreactive); ~Hepatitis C Antibody Nonreactive (Nonreactive)
[2025-08-11 13:34] LABS: Ferritin 73 ng/mL (20-250); Free T4 (Free Thyroxine) 0.89 ng/dL (0.71-1.85); Thyroid Stimulating Hormone 0.98 uIU/mL (0.32-4.0)
== END 2025-08-11 08:47 | disposition home or self-care (01) ==
LOC: HO.LAB 08:46
PROVIDERS: Visit Provider Family Medicine
DX: Z11.4 Encounter for screening for human immunodeficiency virus [HIV] (principal); Z11.59 Encounter for screening for other viral diseases; E11.9 Type 2 diabetes mellitus without complications; M25.50 Pain in unspecified joint
CPT/HCPCS: 36415; 80048; 80061; 80076; 82043; 82306; 82570; 82607; 82728; 82746; 83036; 83540; 84439; 84443; 85027; 86592; 86706; 86803; 87340; 87389

== ENCOUNTER 2025-10-06 09:41 | Outpatient (AMB) | payer MEDICAID, SELFPAY ==
--- OUTSIDE RECORDS SUMMARY | 2024-04-14 05:20 | XMS_ITS ---
Author Organization [facility] Address [address] [place] [address] Care Team Providers Care Fire Control Mechanic Name Role Phone Adolfo Vivar, Milana Primary Care Provider Fabiola vailaRaphael Esparza Jr Unavailable REASON FOR VISIT Patient presents today for an OFFICE VISIT F/U HX OF DIVERTICULITIS Encounters Encounter Location Date Provider Diagnosis [facility] [address] [place] [address] 04/14/2024 Raphael Powell Jr Plan Of Treatment Next Appt Details Provider Name:Raphael yi Jr, 05/17/2026 09:20:00 AM, [address] [place] [address], [address], [place], [address], Progress Notes * FANY ORALDOB:1970 (55 yo M)Acc No.[id number]:04/14/2024 Progress Notes Patient: ORAL VALDOVINOS Provider: Jaye Powell MD :1970 A ge:54 Y S ex:Male Date:04/14/2024 Address:[address] [place] [address] [address], [id number] Pcp:Milana Mata M.D. Subjective: * Chief Complaints: [...] 04/14/2024 Generated for Phil walter/Filippo/Ygitting on: 1 12/07/2024 11:28 AM EST
--- OUTSIDE RECORDS SUMMARY | 2024-07-21 04:40 | XMS_ITS ---
Author Organization [facility] Address [address] [place] [address] Care Team Providers Care Oral Surgeon Name Role Phone Adolfo Vivar, Milana Primary Care Provider Fabiola gilmerilaRaphael Esparza Jr Unavailable [phone] REASON FOR VISIT Patient presents today for diverticulitis Encounters Encounter Location Date Provider Diagnosis [facility] [address] [place] [address] 07/21/2024 Raphael Powell Jr Plan Of Treatment Next Appt Details Provider Name:Raphael yi Jr, 05/17/2026 09:20:00 AM, [address], [address], [place], [address], Progress Notes * ORAL SOARESDOB:1970 (55 yo M)Acc No.[id number]:07/21/2024 Progress Notes Patient: ORAL VALDOVINOS Provider: Jaye Powell MD :1970 A ge:54 Y S ex:Male Date:07/21/2024 Address:[address] [place] [address] [address], [place] Pcp:Milana Mata M.D. Subjective: * Chief Complaints: [...] 07/21/2024 Generated for Phil walter/Filippo/Paolo on: 1 12/07/2024 11:27 AM EST
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
[2025-10-06 09:49] VITALS: BP 120/68; PULSE 75; BMI 33.0
--- OUTSIDE RECORDS SUMMARY | 2025-10-06 11:27 | XMS_ITS | Encounter Summary ---
Author Organization [employer] Address [address] [facility] 7t [place] [address] Care Team Providers Care Origination Specialist Name Role Phone Sandra De Jesus Primary Care Provider [phone] Name, Daniel العراقي Primary Care Provider [phone] Milana Mata DO Primary Care Provider [phone] Reason for Visit * Reason Onset Date Comments TAILER IN Reevaluation 05/06/2024 Encounter Details Date Type Department Care Team (Late st Contact Info) Description 05/06/2024 Telephone [facility] [address] [place] [address] Sandra De Jesus FNP [address] [place], [place] [phone] TAILER [employer] Reevaluation Social History Tobacco Use Types Packs/Day [...] program, Isidra advised to fax form to [facility], provider will review it and will contact agency if needed anything. Isidra verbally greed and understood. * Telephone Encounter - Alexys Orozco RN - 05/13/2024 9:09 AM EDT T/C x 2 am to [phone] for isidra for below message, No answer. Color Stripper sent message to call back on [phone]. T/C to lissett to inform that [facility] is trying to call [employer] / [employer] company for below message , but not able to contact them. LVM to call back on [phone]. Lissett states she is going to call them, Lissett also informed if [employer] company / [employer] is missing any sign please fax documents on [phone] to get sign from PCP. Lissett states she is going to call to company. * Telephone Encounter - Lorena Waldrop - 05/12/2024 4:06 PM EDT Tc from pt spouse regarding message below. * Telephone Encounter - Alexys Orozco RN - 05/12/2024 10:05 AM EDT T/C to [phone] for isidra for below message, No answer. Color Stripper sent message to call back on [phone]. * Telephone Encounter - Humberto Arauz - 05/12/2024 9:52 AM EDT Tc from [facility] requesting a status on PCP order form. Please see notes. Please contact at [phone] ( ask for isidra ) * Telephone Encounter - Brenda Gifford - 05/09/2024 12:35 PM EDT Tc from pt and Lissett requesting a call back in regards below message. Please contact at [phone] * Telephone Encounter - Alexys Orozco RN - 05/06/2024 4:21 PM EDT T/C to pt. For below message, pt. States his TAIL[employer] company called him and states PCP discontinue the service for TAILER IN services, pt. States he is having upcoming surgery and needs TAILER IN services. RN cannotsee any notes that says [...] Description 10/28/2025 10:00 AM EST Clinical Support [facility] [address] [place] [address] Stacia Mcfarland, RAN 12/28/2025 11:00 AM EDT Office Visit [facility] [address] [place] [address] Nancy Jesus, OD [address] [place] [address] documented as of this encounter Visit Diagnoses Not on filedocumented in this encounter Additional Health Concerns Assessment Noted Time PHQ-9 Depression Total Score: 8 11/15/19 24 9:20 AM EST documented as of this encounter Care Teams Origination Specialist Relationship Specialty Start Date End Date Sandra De Jesus FNP [address] [place] [address] PCP - General Family Medicine 07/06/23 06/23/24 Daniel Krause MD [address] [place] [address] PCP - General Internal Medicine 06/24/24 07/01/24 Milana Mata DO [address] [place] [address] PCP - General Family Medicine 07/02/24 documented as of this encounter
--- OUTSIDE RECORDS SUMMARY | 2025-10-06 11:27 | XMS_ITS | Encounter Summary ---
Author Organization [facility] Address [address] [address] Phone Care Team Providers Care Cnmt Name Role Phone Pcp, Unknown Primary Care Provider Christiana Amador MD Primary Care Provider Caroline magaña Encounter Details Date Type Department Care Team (Late st Contact Info) Description 09/19/2022 Procedure Pass [facility], Ct Scan - [address] [address] Social History Tobacco Use Types Packs/Day Years [...] 09/19/2022 7:36 PM Usman Trejo, RN * Raymond Suicide Severity Rating Scale (Screener/Recent Self-Report) Question [...] on filedocumented in this encounter Care Teams Cnmt Relationship Specialty Start Date End Date Pcp, Unknown PCP - General 09/19/22 09/26/22 Christiana Campbell MD PCP - General Internal Medicine 09/27/22 documented as of this encounter Additional Source Comments The information contained in this document represents components of the legal health record. It is not the complete legal health record.[facility]
--- OUTSIDE RECORDS SUMMARY | 2025-10-06 11:27 | XMS_ITS | Encounter Summary ---
Author Organization [employer] Address [address] [facility] 7t [place] [address] Care Team Providers Care Software Security Consultant Name Role Phone Sandra De Jesus Primary Care Provider + Name, Daniel العراقي Primary Care Provider [phone] Milana Mata DO Primary Care Provider + [phone] Encounter Details Date Type Department Care Team (Late st Contact Info) Description 02/05/2024 Telephone [facility] [address] [place] [address] Sandra De Jesus FNP [address] [place] [address] Social History Tobacco Use Types Packs/Day Years [...] Description 10/28/2025 10:00 AM EST Clinical Support [facility] [address] [place] [address] Stacia Mcfarland RN 12/28/2025 11:00 AM EDT Office Visit [facility] [address] [place] [address] Edin, Nancy, OD [address] [place] [address] documented as of this encounter Visit Diagnoses Not on filedocumented in this encounter Additional Health Concerns Assessment Noted Time PHQ-9 Depression Total Score: 8 11/15/19 24 9:20 AM EST documented as of this encounter Care Teams Software Security Consultant Relationship Specialty Start Date End Date Sandra De Jesus FNP [address] [place] [address] PCP - General Family Medicine 07/06/23 06/23/24 Daniel Krause MD [address] [place] [address] PCP - General Internal Medicine 06/24/24 07/01/24 Milana Mata DO [address] [place] [address] PCP - General Family Medicine 07/02/24 documented as of this encounter
--- OUTSIDE RECORDS SUMMARY | 2025-10-06 11:27 | XMS_ITS | Encounter Summary ---
Author Organization [employer] Address [address] [facility] 7t [place] [address] Care Team Providers Care Pulmonologist/Intensivist Name Role Phone Sandra De Jesus Primary Care Provider + Name, Daniel العراقي Primary Care Provider [phone] Milana Mata DO Primary Care Provider [phone] Encounter Details Date Type Department Care Team (Late st Contact Info) Description 05/23/2024 Orders Only [facility] [address] [place], [place] [phone] Sandra De Jesus FNP [address] [place] [address] Cervical neck pain with evidence of disc [...] Description 10/28/2025 10:00 AM EST Clinical Support [facility] [address] [place] [address] Stacia Mcfarland RN 12/28/2025 11:00 AM EDT Office Visit [facility] [address] [place] [address] Nancy Jesus, OD [address] [place] [address] documented as of this encounter Visit Diagnoses Diagnosis Cervical neck pain with evidence of disc disease- Primary Other and unspecified disc disorder of cervical region documented in this encounter Additional Health Concerns Assessment Noted Time PHQ-9 Depression Total Score: 8 11/15/19 24 9:20 AM EST documented as of this encounter Care Teams Pulmonologist/Intensivist Relationship Specialty Start Date End Date Sandra De Jesus FNP [address] [place] [address] PCP - General Family Medicine 07/06/23 06/23/24 Daniel Krause MD [address] [place] [address] PCP - General Internal Medicine 06/24/24 07/01/24 Milana Mata DO [address] [place] [address] PCP - General Family Medicine 07/02/24 documented as of this encounter
--- OUTSIDE RECORDS SUMMARY | 2025-10-06 11:27 | XMS_ITS | Encounter Summary ---
Author Organization [employer] Address [address] [facility] [address] [place] [address] Care Team Providers Care Warp Changer Name Role Phone LizaJluiazelalem VOGEL Primary Care Provider + Jimi, Daniel العراقي Primary Care Provider [phone] Milana Mata DO Primary Care Provider [phone] Reason for Visit * Reason Comments Med Refill Encounter Details Date Type Department Care Team (Late st Contact Info) Description 09/30/2023 Refill [facility] MEDICINE [address] [place], [place] [phone] Campbell Salguero AGNP Social History Tobacco Use [...] 10:00 AM EST Clinical Support [facility] MEDICINE [address] [place] [address] Stacia Mcfarland, RAN 12/28/2025 11:00 AM EDT Office Visit [facility] OPTOMETRY [address] [place] [address] Edin, Nancy, OD [address] [place] [address] documented as of this encounter Visit Diagnoses Not on filedocumented in this encounter Additional Health Concerns Assessment Noted Time PHQ-9 Depression Total Score: 12 023 2:23 PM EDT documented as of this encounter Care Teams Warp Changer Relationship Specialty Start Date End Date Sandra De Jesus FNP [address] [place] [address] PCP - General Family Medicine 07/06/23 06/23/24 Daniel Krause MD [address] [place] [id number] PCP - General Internal Medicine 06/24/24 07/01/24 Milana Mata DO [address] [place] [id number] PCP - General Family Medicine 07/02/24 documented as of this encounter
--- OUTSIDE RECORDS SUMMARY | 2025-10-06 11:28 | XMS_ITS | Encounter Summary ---
Author Organization [employer] Address [address] [facility] [address] [place] [address] Care Team Providers Care Fiberglass Boat Builder Name Role Phone Jose M Campbell VERONICA Primary Care Provider Unavail Sandra Mercado Primary Care Provider + Name, Daniel العراقي Primary Care Provider [phone] Milana Mata DO Primary Care Provider [phone] Encounter Details Date Type Department Care Team (Late Contact Info) Description 04/25/2023 Telephone [facility] MEDICINE [address] [place], [place] [phone] Earlene Lange LPN Social History Tobacco Use [...] Description 10/28/2025 10:00 AM EST Clinical Support [facility] MEDICINE [address] [place] [address] Stacia Mcfarland, RN 12/28/2025 11:00 AM EDT Office Visit [facility] OPTOMETRY [address] [place], [place] [phone] Nancy Jesus, OD [address] [place] [address] documented as of this encounter Visit Diagnoses Not on filedocumented in this encounter Additional Health Concerns Assessment Noted Time PHQ-9 Depression Total Score: 12 023 2:23 PM EDT documented as of this encounter Care Teams Fiberglass Boat Builder Relationship Specialty Start Date End Date Campbell Salguero AGNP PCP - General Family Medicine 09/25/22 07/05/23 Sandra De Jesus FNP [address] [place] [address] PCP - General Family Medicine 07/06/23 06/23/24 Daniel Krause MD [address] [place] [address] PCP - General Internal Medicine 06/24/24 07/01/24 Milana Mata DO [address] [place] [address] PCP - General Family Medicine 07/02/24 documented as of this encounter
--- OUTSIDE RECORDS SUMMARY | 2025-10-06 11:28 | XMS_ITS | Encounter Summary ---
Author Organization [facility] Address [address] [address] Phone Care Team Providers Care Sales Consulting Director Name Role Phone Christiana Campbell MD Primary Care Provider Caroline magaña Encounter Details Date Type Department Care Team (Late st Contact Info) Description 02/13/2023 Procedure Pass OR Admitting Dept - [facility] Department [address] [place] [address] Social History Tobacco Use Types Packs/Day Years [...] 4:19 PM EDT Iliana Olguin RN * [place] Suicide Severity Rating Scale (Screener/Recent Self-Report) Question [...] on filedocumented in this encounter Care Teams Sales Consulting Director Relationship Specialty Start Date End Date Christiana Campbell MD PCP - General Internal Medicine 09/27/22 documented as of this encounter Additional Source Comments The information contained in this document represents components of the legal health record. It is not the complete legal health record.[facility]
--- OUTSIDE RECORDS SUMMARY | 2025-10-06 11:28 | XMS_ITS | Encounter Summary ---
Author Organization [employer] Address [address] [facility] [address] [place] [address] Care Team Providers Care Risk Management Manager Name Role Phone Sandra De Jesus Primary Care Provider + Jimi, Daniel العراقي Primary Care Provider [phone] Milana Maat DO Primary Care Provider [phone] Reason for Visit * Reason Comments Med Refill Encounter Details Date Type Department Care Team ([facility] st Contact Info) Description 08/01/2023 Refill [facility] [address] [place] [address] Ryan Nation MD [address] [place] [address] Social History Tobacco Use Types Packs/Day Years [...] Description 10/28/2025 10:00 AM EST Clinical Support [facility] MEDIC[facility] [address] [place] [address] Stacia Mcfarland RN 12/28/2025 11:00 AM EDT Office Visit [facility] OPTOMETRY [address] [place] [address] Edin, Nancy, OD [address] [place] [address] documented as of this encounter Visit Diagnoses Not on filedocumented in this encounter Additional Health Concerns Assessment Noted Time PHQ-9 Depression Total Score: 12 023 2:23 PM EDT documented as of this encounter Care Teams Risk Management Manager Relationship Specialty Start Date End Date Sandra De Jesus FNP [address] [place] [address] PCP - General Family Medicine 07/06/23 06/23/24 Daniel Krause MD [address] [place] [address] PCP - General Internal Medicine 06/24/24 07/01/24 Milana Mata DO [address] [place] [address] PCP - General Family Medicine 07/02/24 documented as of this encounter
--- OUTSIDE RECORDS SUMMARY | 2025-10-06 11:28 | XMS_ITS | Clinical Summary ---
Author Organization [employer] Address [address] [place] [address] Care Team Providers Care Network Security Administrator Name Role Phone Milana Mata DO Primary Care Provider [phone] Allergies Active Allergy Reactions Criticality Noted Date Comments [place]-Containing Products Anaphylaxis High 04/20/2023 Fruit Extracts 10/10/2023 Pt states he is allergic to any fruit that has seeds Penicillins Rash High 10/12/2010 [place] Oil 08/21/2024 Medications OXcarbazepine (Trileptal) 300 MG [...] before evening meal. 180 capsule 3 024 Active losartan-hydroCHL OROthiazide (Hyzaar) 100-25 MG tablet TAKE 1 TABLET BY MOUTH EVERY MORNING 90 tablet 3 025 Active cholecalciferol VITAMIN D (Vitamin D-3) 50 MCG (1999 UT) tabletIndications :Anxiety state TAKE 1 TABLET BY MOUTH EVERY MORNING 90 tablet 3 025 Active sucralfate (Carafate) 1 GM/10ML suspension SWISH AND SWALLOW 10 ML FOUR TIMES DAILY NEEDED FOR HEARTBURN USE AFTER FOOD OR DRINK Active fluticasone (Flonase) 50 MCG/ACT nasal spray Administer 2 sprays into each nostril Once per day. 48 g 3 5 9:11 AM EST Active lidocaine (Lidoderm) 5 % patch Apply 1-2 patches topically if needed each day for mild pain. Remove & discard patch within 12 hours or as directed by MD. 60 patch 3 Active FREESTYLE LITE test strip Use to test blood sugar 2 times daily 100 each 11 5 9:11 AM EST 025 2025 Active Lancets misc Use to test blood sugar 2 times daily 100 each 11 5 9:11 AM EST 025 Active Blood Glucose Monitoring Suppl (FreeStyle [place] Lite) w/Device kit Use to test blood sugar 2 times daily 1 kit Active Polyethyl Glycol-Propyl Glycol (Lubricant Eye Drops) 0.4-0.3 % solutionIndicatio ns:Pruritus of both eyes Administer 1 drop into both eyes if needed in the morning, at noon, and at bedtime (irritation). 5 mL 025 Active amLODIPine (Norvasc) 5 MG tablet TAKE 1 TABLET BY MOUTH EVERY MORNING 90 tablet 3 025 Active Ventolin HFA 108 (90 Base) MCG/ACT inhaler INHALE 2 PUFFS BY MOUTH EVERY 4 HOURS NEEDED FOR WHEEZING OR SHORTNESS OF BREATH 18 g 1 025 Active acetaminophen (Tylenol 8 Hour) 650 MG ER tablet TAKE 1 TABLET BY MOUTH EVERY 8 HOURS NEEDED FOR MILD PAIN DO NOT BREAK, CRUSH, DISSOLVE OR CHEW 60 tablet 1 025 Active Eye Itch Relief 0.035 % solution INSTILL 1 DROP AFFECTED EYE(S) TWICE DAILY IN THE MORNING AND AT BEDTIME NEEDED FOR ALLERGIES OR FOR ITCHING 10 mL 1 025 Active Diclofenac Sodium 1 % gel APPLY [...] BY MOUTH AT BEDTIME 90 tablet 1 5 9:11 AM EST 025 Active cetirizine (ZyrTEC) 10 MG tabletIndications :Seasonal allergic rhinitis, unspecified trigger TAKE 1 TABLET BY MOUTH EVERY MORNING 90 tablet 1 025 Active Dulaglutide (Trulicity) 1.5 MG/0.5ML solution auto-injectorIndi cations:Type 2 diabetes mellitus without complication, without long-term current use of insulin (HCC) Inject 0.5 mL under the skin 1 (one) time per week. 2 mL 11 5 12:57 PM EST 025 Active cloNIDine (Catapres) 0.2 MG tablet Take 0.2 mg by mouth at bedtime. 025 Active traMADol (Ultram) 50 MG tabletIndications :Chronic neck and back pain TAKE 1 TABLET EVERY TWELVE HOURS NEEDED FOR SEVERE PAIN 56 tablet 025 Active Alcohol Swabs (Alcohol Prep) 70 % pads TEST BLOOD SUGAR TWICE DAILY 100 each 11 5 9:11 AM EST 025 Active Fiber-Lax 625 MG tablet TAKE 1 TABLET BY MOUTH TWICE DAILY 180 tablet 3 11/04/2 025 Active apixaban (Eliquis) 5 MG tablet TAKE 1 TABLET BY MOUTH TWICE DAILY IN THE MORNING AND IN THE EVENING 60 tablet 5 Active apixaban (Eliquis) 5 MG tablet TAKE 1 TABLET BY MOUTH TWICE DAILY IN THE MORNING AND IN THE EVENING 60 tablet 5 025 2024 Discontinued Active Problems Problem Noted [...] Major depression, recurrent, chronic 10/22/1959 Seizure disorder (CMS/HCC) 10/22/1959 Resolved Problems Problem Noted Date Diagnosed Date Resolved Date Right flank pain 07/11/2025 08/31/2025 Assessment & Plan (07/11/2025 12:19 AM EDT): -CT chest w IV con 04/2025 1.4 mm noncalcified pulmonary nodule, right upper lung lobe. Nonspecific subcentimeter hepatic hypodensities. Multilevel spondylosis and old superior endplate compression deformity, T9, T11 and T12. Diverticular disease, transverse colon. -Pt was seen at [facility] on 07/06/2025 for similar complaint . [place] possible pain from costochondritis, labs done 07/07/2025 [...] in case needs to go to ED Routine adult health maintenance 04/20/2023 07/24/2024 Assessment & Plan (04/20/2023 5:25 PM EDT): PHQ: 12 Substance use: Denies ever using tobacco. Denies drug use. Social drinker Lipids: labs ordered Colonoscopy: 12/18/18, no mention of when to repeat, mild sigmoid diverticulosis, no polyps identified; but there was some liquid stool making it difficult to see if there were small polyps. Eye exam: Saw dispatch clerk 8 months ago, [facility]. Does not wear glasses. Dental home: upcoming appointment next month at [facility]. Allergies 04/20/2023 07/24/2024 Assessment & [...] was prudent to send him to an insulation sprayer to get a comprehensive and accurate list [...] Encounters Date Type Department Care Team Description 09/24/2025 Refill [facility] [address] [place] [address] Milana Mata DO 09/07/2025 10:00 AM EST Immunization [facility] [place] [place] [address] Norma Cleary, RAN Encounter for vaccination; Encounter for immunization 09/07/2025 Travel 08/24/2025 Refill [facility] [place] [place] [address] Milana Mata DO 08/14/2025 Refill [facility] [place] [place] [address] Milana Mata DO 08/10/2025 10:30 AM EDT Office Visit [facility] [place] [place] [address] Milana Mata DO Type 2 diabetes mellitus without complication, without long-term current use of insulin (HCC) (Primary Dx); Essential hypertension; Other hyperlipidemia; Major depression, recurrent, chronic (CMS/HCC); Seizure disorder (CMS/HCC) (HCC); Clotting disorder; Obstructive sleep apnea; Chronic gastroesophageal reflux disease; Seasonal allergic rhinitis, unspecified trigger; Chronic neck and back pain; Polyarthralgia; Lung nodule; Healthcare maintenance 08/10/2025 Travel 07/31/2025 Telephone [facility] [place] [place] [place] [address] Milana Mata DO Chart Prep 07/29/2025 Telephone [facility] [place] [address] Milana Mata DO Medication Question 07/28/2025 10:00 AM EDT Clinical Support [facility] [place] [place] [place] [address] Stacia Mcfarland RN Long-term current use of opiate analgesic (Primary Dx) 07/28/2025 Travel 07/10/2025 Results Follow-Up [facility] [place] [place] [place] [address] Mona Chan MD D Dimer High Sensitivity, CT Abdomen w/ Contrast 07/10/2025 Orders Only GENERIC EXTERNAL DATA DEPARTMENT Provider, Generic External Data 07/10/[address] [address] Milana Mata DO Chronic neck and back pain 07/09/2025 11:15 AM EDT Office Visit [address] [address] Mona Chan MD Mid back pain on right side (Primary Dx); Pleuritic pain; Right flank pain; Essential hypertension 07/09/2025 Travel 07/09/[address] [address] Milana Mata DO Appointment Request 07/08/2025 Results Follow-Up [address] [address] Willy Rock MD CBC auto differential, Comprehensive Metabolic Panel, Urinalysis Complete, XR Chest 2 Views 07/07/2025 Orders Only GENERIC EXTERNAL DATA DEPARTMENT Provider, Generic External Data 07/07/[address] [address] Milana Mata DO Results from Last 3 Months Immunizations Immunization Administration Dates Next Due Hep B, adult 12/31/2024, 2,05/30/2011,2010 Influenza Injectable Quadriv alant Preservative Free IIV4 MDCK 09/29/2022 Influenza injectable quadriv alent preservative free 10/10/2023 Influenza, IIV3, injectable 09/05/2022, 8 Influenza, Split (incl. josue fied surface antigen) 07/29/2013 Influenza, seasonal, injecta ble, preservative free 09/07/2025,07/24/2024 Moderna Covid-19 Vaccine 12+ 10/11/2021,02/03/20 21,01/02/2021 Pfizer Covid-19 Vaccine 12+ 09/07/2025, 4 Pneumococcal Conjugate PCV 20 10/10/2023 Tdap 12/01/2022,09/09/2012,01/06/2011 [...] housing situation today? I have genevadarcie alston 08/10/[address] you [...] [facility] [address] [place] [address] Stacia Mcfarland RN 12/28/2025 11:00 AM EDT Office Visit [facility] [address] [place] [address] Edin, Nancy, OD [address] [place] [address] Health Maintenance Due Date Last Done Comments CT Colonography 1969 Dental Oral Exam 1969 Dental Prophylaxis 1969 FIT DNA/Cologuard 1969 Sigmoidoscopy 1969 Diabetes: Foot Exam 1979 RSV Patients and Patients Aged 60 years or older (1 - Risk 50-74 years 1-dose series) 2019 FIT 11/15/2024 11/15/2023, 11/15/2023 FOBT 11/15/2024 11/15/2023 Dental X-Ray: Bitewings 08/22/2025 08/21/2024 Eye Exam 11/26/2025 11/26/2023, 020 02/2024, 11/26/2023, Additional history exists Alcohol/Substance Use Screening 12/31/2025 12/31/2024 Depression Monitoring 02/08/2026 08/10/2025, 025 Diabetes: Hemoglobin A1C 02/09/2026 025, 01/05/2025, 12/31/2024, Additional history exists Disability Screening 03/20/2026 03/20/2025 Dental X-Ray: Full Mouth 05/23/2026 05/22/2023 SDOH Screening 08/10/2026 08/10/2025 Tobacco Screening 08/10/2026 08/10/2025 Diabetes: Urine Protein Screening 08/11/2026 08/11/2025, 07/28/2024, 09/20/2021, Additional history exists Lipid Panel 08/11/2026 08/11/2025, 04/2024, 04/20/2023, Additional history exists Colonoscopy 04/19/2028 04/19/2023, 12/29/2022 Colorectal Cancer Screening 04/19/2028 DTaP/Tdap/Td Vaccines (4 - Td or Tdap) 12/01/2032 12/01/2022, 09/09/2012, 01/06/2011 Zoster Vaccines Completed 12/01/2022, 09/29/2022 Pneumococcal Vaccine: 50+ Years Completed 10/10/2023 Hepatitis B Vaccines Completed 12/31/2024, 12/05/2011, 05/30/2011, Additional history exists HIV Screening Completed 08/11/2025, 04/2024, 09/20/2021 Hepatitis C Screening Completed 08/11/2025 , 07/28/2024, 04/20/2023 COVID-19 Vaccine Completed 09/07/2025, 12/2023, 10/11/2021, Additional history exists Influenza Vaccine Completed 09/07/2025, , 10/10/2023, Additional history exists HIB Vaccines Aged Out [...] Procedure Name Priority Date/Time Associated Diagnosis Comments IRON AND TOTAL IRON BINDING CAPACITY Routine 08/11/2025 9:14 AM EDT Type 2 diabetes mellitus without complication, without long-term current use of insulin (HCC) Polyarthralgia FERRITIN Routine 08/11/2025 9:14 AM EDT Type 2 diabetes mellitus without complication, without long-term current use of insulin (HCC) Polyarthralgia VITAMIN B12/FOLATE, SERUM PANEL Routine 08/11/2025 9:14 AM EDT Type 2 diabetes mellitus without complication, without long-term current use of insulin (HCC) Polyarthralgia HEPATITIS B SURFACE ANTIBODY, QUALITATIVE Routine 08/11/2025 9:14 AM EDT Type 2 diabetes mellitus without complication, without long-term current use of insulin (HCC) Polyarthralgia RPR (MONITOR) W/REFL TITER Routine 08/11/2025 9:14 AM EDT Type 2 diabetes mellitus without complication, without long-term current use of insulin (HCC) Polyarthralgia HEPATITIS C AB W/REFL TO HCV RNA, QN, PCR Routine 08/11/2025 9:14 AM EDT Type 2 diabetes mellitus without complication, without long-term current use of insulin (HCC) Polyarthralgia HIV 1/2 ANTIGEN/ANTIBODY, FOURTH GENERATION W/RFL Routine 08/11/2025 9:14 AM EDT Type 2 diabetes mellitus without complication, without long-term current use of insulin (HCC) Polyarthralgia HEPATITIS B SURFACE ANTIGEN, EIA Routine 08/11/2025 9:14 AM EDT Type 2 diabetes mellitus without complication, without long-term current use of insulin (HCC) Polyarthralgia CBC Routine 08/11/2025 9:14 AM EDT Type 2 diabetes mellitus without complication, without long-term current use of insulin (HCC) Polyarthralgia BASIC METABOLIC PANEL Routine 08/11/2025 9:14 AM EDT Type 2 diabetes mellitus without complication, without long-term current use of insulin (HCC) Polyarthralgia HEMOGLOBIN A1C Routine 08/11/2025 9:14 AM EDT Type 2 diabetes mellitus without complication, without long-term current use of insulin (HCC) Polyarthralgia HEPATIC FUNCTION PANEL Routine 9:14 AM EDT Type 2 diabetes mellitus without complication, without long-term current use of insulin (HCC) Polyarthralgia TSH Routine 08/11/2025 9:14 AM EDT Type 2 diabetes mellitus without complication, without long-term current use of insulin ([facility]) Polyarthralgia LIPID PANEL, STANDARD Routine 08/11/2025 9:14 AM EDT Type 2 diabetes mellitus without complication, without long-term current use of insulin (HCC) Polyarthralgia VITAMIN D,25-OH,TOTAL,IA Routine 08/11/2025 9:14 AM EDT Type 2 diabetes mellitus without complication, without long-term current use of insulin (HCC) Polyarthralgia T4, FREE Routine 08/11/2025 9:14 AM EDT Type 2 diabetes mellitus without complication, without long-term current use of insulin (HCC) Polyarthralgia ALBUMIN, RANDOM URINE W/CREATININE Routine 08/11/2025 9:13 AM EDT Type 2 diabetes mellitus without complication, without long-term current use of insulin (HCC) Polyarthralgia XR SHOULDER 2+ VIEWS LEFT Routine [...] Routine 07/07/2025 9:24 AM EDT URINALYSIS, COMPLETE (INCLUDES MACRO AND MICRO) Routine 07/07/2025 9:24 AM EDT Mid back [...] sleep apnea BMI 36.0-36.9,adult Encounter for immunization BITEWING - SINGLE RADIOGRAPHIC IMAGE Routine 08/21/2024 11:30 AM EDT Symptomatic periapical periodontitis FECAL GLOBIN BY IMMUNOCHEMISTRY Routine 11/15/2023 9:03 AM EST Dark stools HM COLONOSCOPY Routine 04/19/2023 2:32 PM EDT from Last 3 Months or Most Recently Relevant to Health Maintenance Results * Vitamin D, 25-Hydroxy, Total, Immunoassay (08/11/2025 9:14 AM EDT) Vitamin D 25-OH Total 41.7 >30 ng/mL [facility] Comment: Health Based Reference Values*< 20 ng/mL Ezexdoogx68-18 ng/mL Insufficient> 30 ng/mL Sufficient*Isabela MONTES. N Engl J Med. 2007;357:266-280There is no well-established upper level of normal vitamin Dlevels. Some laboratories use 50 ng/mL as an upper limit ofnormal. However, toxicity is patient-dependent and may occurat any level. Careful correlation with the patient'spresentation is necessary and, if there is concern forvitamin D toxicity, treatment should be consideredirrespective of the serum level.Care must be taken in interpreting Vitamin D results fromdifferent laboratories and methodologies. Published datademonstrated that results from patients undergoinghemodialysis may show a negative bias when tested withvarious automated 25-OH vitamin D assays when compared toLC-MS/MS.When testing samples from patients whose predominant form ofVitamin D is Vitamin D2, such as patients receiving VitaminD2 supplementation, results that are subtherapeutic shouldbe confirmed with another method such as LC-MS/MS. Blood Venous blood specimen / Unknown 08/11/2025 9:14 AM EDT 08/11/2025 9:14 AM EDT Milana Mata DO LAB BLOOD ORDERABLES Final R esult [facility] [address] [place] [address] [phone] * Vitamin B12 (Cobalamin) and Folate Panel, Serum (08/11/2025 9:14 AM EDT) Vitamin B12 336 200 - 900 pg/mL [facility] Comment:NORMAL 200-900 PG/ML INDETERMINATE 160-199 PG/ML DEFICIENT < 160 PG/ML Folate 6.7 > or = 4.0 ng/mL [facility] Comment:Reference Values:> o r = 4.0 ng/mL< 4.0 ng/mL suggests folate deficiency Methotrexate, aminopterin and folinic acid(leucovorin) are chemotherapeutic agents whose molecularstructures are similar to folate; therefore, the Architectfolate assay cannot be used for patients using these drugs. Blood 08/11/2025 9:14 AM EDT 08/11/2025 9:14 AM EDT Milana Mata DO LAB BLOOD ORDERABLES Final R esult Performing Organization Address City/[facility] Co de Phone Number [facility] [address] [place] [address] [phone] * Hepatitis C Antibody with Reflex to HCV, RNA, Quantitative, Real-Time PCR (08/11/2025 9:14 AM EDT) Hepatitis C Antibody Nonreactive Nonreactive [facility] Comment:Antibodies to HCV no t detected; does not exclude early acuteHCV infection. Blood Venous blood specimen / Unknown 08/11/2025 9:14 AM EDT 08/11/2025 9:14 AM EDT Milana Mata LAB BLOOD ORDERABLES Final R esult Performing Organization Address [facility] Co de Phone Number [facility] [address] [place] [phone] * Iron And Total Iron Binding Capacity (08/11/2025 9:14 AM EDT) Pathologist [facility] Iron 63 45 - 160 mcg/dL [facility] Total Iron Binding Capacity 284 228 - 428 mcg/dL [facility] Percent Iron Saturation 22 15 - 50 % [facility] Unsaturated Iron Binding 221 ug/dL [facility] Blood Venous blood specimen / Unknown 08/11/2025 9:14 AM EDT 08/11/2025 9:14 AM EDT Milana Mata DO LAB BLOOD ORDERABLES Final R esult Performing Organization Address City/[facility]/ZIP Co de Phone Number [facility] [address] [place] [address] [phone] * Hepatitis B surface antigen, EIA (08/11/2025 9:14 AM EDT) Hepatitis B Surface Ag Negative Negative [facility] Blood Venous blood specimen / Unknown 08/11/2025 9:14 AM EDT 08/11/2025 9:14 AM EDT Milana Mata DO LAB BLOOD ORDERABLES Final R esult Performing Organization Address City/[facility]/ZIP Co de Phone Number [facility] [address] [place] [address] [phone] * RPR (Monitor) with Reflex to??Titer (08/11/2025 9:14 AM EDT) RPR (Monitor) w/Refl Titer NON-REACTI VE NON-REACT WENDY [facility] Comment:THIS TEST WAS PERFOR MED AT:[facility] [place] [phone] VILLALPANDO MD Rapid Plasma Reagin Ab Titer TNP [facility] Blood Venous blood specimen / Unknown 08/11/2025 9:14 AM EDT 08/11/2025 9:14 AM EDT us Milana Mata DO LAB BLOOD ORDERABLES Final R esult Performing Organization Address [facility] Co de Phone Number [facility] [address] [place] [address] [phone] * HIV-1/2 Antigen and Antibodies, Fourth Generation, with Reflexes (08/11/2025 9:14 AM EDT) HIV AB/AG Nonreactive Nonreactive [facility] Comment:HIV-1 p24 Ag and/or HIV-1/HIV-2 Ab not detected.A test result that is nonreactive does not exclude thepossibility of exposure to or infection with HIV-1 and/orHIV-2. Nonreactive results in this assay for individualswith prior exposure to HIV-1 and/or HIV-2 may be due toantigen and antibody levels that are below the limit ofdetection of this assay.[employer] HIV Ag/Ab Combo assay result andsupplemental assay results should be interpreted inconjunction with the patient's clinical presentation,history and other laboratory results. If the results areinconsistent with clinical evidence, additional testing issuggested to confirm the result. Blood Venous blood specimen / Unknown 08/11/2025 9:14 AM EDT 08/11/2025 9:14 AM EDT Milana Mata LAB BLOOD ORDERABLES Final R esult Performing Organization Address City/[facility] Co de Phone Number [facility] [address] [place] [phone] * Hepatitis B Surface Antibody, Qualitative (08/11/2025 9:14 AM EDT) Pathologist [facility] ~Hepatitis B Surface Antibody REACTIVE Nonreactive [facility] Comment:REACTIVE: > 11.99 mI U/mL Blood Venous blood specimen / Unknown 08/11/2025 9:14 AM EDT 08/11/2025 9:14 AM EDT Milana Mata LAB BLOOD ORDERABLES Final R esult Performing Organization Address [facility] de Phone Number [facility] [address] [place] [phone] * (ABNORMAL) CBC (08/11/2025 9:14 AM EDT) Pathologist [facility] White Blood Count 6.5 4.8 - 10.8 X10*3/uL [facility] Red Blood Count 4.83 4.60 - 5.80 X10*6/uL [facility] Hemoglobin 12.3(L) 14.0 - 18.0 g/dl [facility] Hematocrit 39.1(L) 42.0 - 52.0 % [facility] Mean Corpuscular Volume 81.0 80.0 - 98.0 fL [facility] Mean Corpuscular Hemoglobin 25.5(L) 27.0 - 33.0 pg [facility] Mean Corpuscular HGB Conc 31.5 31.0 - 36.0 g/dl [facility] Red Cell Distribution Width 14.7 11.0 - 16.0 % [facility] Platelet Count 229 160 - 400 X10*3/uL [facility] Mean Platelet Volume 11.2 9.4 - 12.4 fL [facility] NRBC Pct Auto 0.0 0.0 - 0.2 /100WBC [facility] NRBC Abs Auto 0.000 0.0 - 0.012 X10*3/uL [facility] Blood Venous blood specimen / Unknown 08/11/2025 9:14 AM EDT 08/11/2025 9:14 AM EDT Milana Mata DO LAB BLOOD ORDERABLES Final R esult Performing Organization Address City/[facility]/ZIP Co de Phone Number [facility] [address] [place] [phone] * TSH (08/11/2025 9:14 AM EDT) Thyroid Stimulating Hormone 0.98 0.32 - 4.0 uIU/mL [facility] Comment:TSH 3rd Generation ( [facility]) Blood Venous blood specimen / Unknown 08/11/2025 9:14 AM EDT 08/11/2025 9:14 AM EDT Milana Mata DO LAB BLOOD ORDERABLES Final R esult Performing Organization Address City/[facility]/ZIP Co de Phone Number [facility] [address] [place] [phone] * T4, Free (08/11/2025 9:14 AM EDT) Free T4 (Free Thyroxine) 0.89 0.71 - 1.85 ng/dL [facility] Blood Venous blood specimen / Unknown 08/11/2025 9:14 AM EDT 08/11/2025 9:14 AM EDT Milana Mata DO LAB BLOOD ORDERABLES Final R esult Performing Organization Address City/[facility]/ZIP Co de Phone Number [facility] [address] [place] [phone] * Hemoglobin A1c (08/11/2025 9:14 AM EDT) Hemoglobin A1c 6.0 <6.0 % [facility] Comment:Hemoglobin A1C Refer ence Range Adults: 4.8 - 6.0 % Non diabetic: < 6.0 % Goal: < 7.0 %Additional Action Suggested: > 8.0 %Note: Hemoglobin A1c results are invalid for patients with abnormal amounts of HbF. Blood transfusions may impact the HbA1c concentration in the patient sample. Estimated Average Glucose 126 mg/dL [facility] Comment:eAG = Estimated ave rage glucose which is %A1C expressed asaverage glucose, using the formula of the B2R-VvlqtceViwgktw Glucose study (ADAG), Diabetes Care, Vol.31,#8,2007 Blood Venous blood specimen / Unknown 08/11/2025 9:14 AM EDT 08/11/2025 9:14 AM EDT Milana Mata [employer] LAB BLOOD ORDERABLES Final R esult Performing Organization Address [facility] Co de Phone Number [facility] [address] [place] [address] [phone] * Ferritin (08/11/2025 9:14 AM EDT) Ferritin 73 20 - 250 ng/mL [facility] Blood Venous blood specimen / Unknown 08/11/2025 9:14 AM EDT 08/11/2025 9:14 AM EDT Milana Adolfo DO LAB BLOOD ORDERABLES Final R esult Performing Organization Address City/[facility]/ZIP Co de Phone Number [facility] [address] [place] [phone] [phone] * Hepatic Function Panel (08/11/2025 9:14 AM EDT) Bilirubin, Total 0.6 0.0 - 1.0 mg/dL [facility] Bilirubin, Direct 0.2 0.0 - 0.5 mg/dL [facility] Aspartate Amino Transferase 20 5 - 37 U/L [facility] Alanine Aminotransferase 24 0 - 40 U/L [facility] Total Protein 7.5 6.5 - 8.0 g/dL [facility] Albumin Level 4.5 3.5 - 5.0 g/dL [facility] Alkaline Phosphatase 106 39 - 117 U/L [facility] Blood Venous blood specimen / Unknown 08/11/2025 9:14 AM EDT 08/11/2025 9:14 AM EDT us Milana Mata DO LAB BLOOD ORDERABLES Final R esult [facility] [address] [place] [phone] * Lipid Panel, Standard (08/11/2025 9:14 AM EDT) Triglycerides 65 <150 mg/dL [facility] Comment:Desirable Triglyceri de: less than 150 mg/dLBorderline High Triglyceride 150-199 mg/dLHigh Triglyceride: 200-499 mg/dLVery High Triglyceride: greater than or equal to 5OO mg/dL Cholesterol 125 <200 mg/dL [facility] Comment:Desirable Cholestero l: less than 200 mg/dLBorderline High Cholesterol: 200-239 mg/dLHigh Cholesterol: greater than 239 mg/dL LDL Cholesterol Calculated 68 <100 mg/dL [facility] Comment:Desirable LDL: less than 100 mg/dLNear Optimal/Above Optimal LDL: 110- 129 mg/dLBorderline High LDL: 130-159 mg/dLHigh LDL: 160-189 mg/dLVery High LDL: greater than or equal to 190 mg/dL HDL Cholesterol 44 >40 mg/dL [facility] Comment:Desirable HDL: great er than 40 mg/dL Note: This HDL assay may give artificially low results in patients with liver disease. Blood Venous blood specimen / Unknown 08/11/2025 9:14 AM EDT 08/11/2025 9:14 AM EDT Milana Mata DO LAB BLOOD ORDERABLES Final R esult Performing Organization Address City/[facility]/ZIP Co de Phone Number [facility] [address] [place] [phone] * (ABNORMAL) Basic Metabolic Panel (08/11/2025 9:14 AM EDT) Sodium 140 135 - 145 mmol/L [facility] Potassium 3.9 3.3 - 5.1 mmol/L [facility] Chloride 104 96 - 108 mmol/L [facility] Carbon Dioxide 30(H) 22 - 29 mmol/L [facility] Anion Gap 10(L) 12 - 20 [facility] Urea Nitrogen (BUN) 13 9 - 16 mg/dL [facility] Creatinine, Serum 0.73 0.5 - 1.4 mg/dL [facility] Estimated Glomerular Filt Rate >60 [facility] Comment:Chronic Kidney Disea se: Estimated GFR < 60 mL/min/1.08l0Krcejo Kidney Disease: Estimated GFR < 15 mL/min/1.73m2 Glucose 98 60 - 115 mg/dL [facility] Calcium 9.4 8.4 - 10.2 mg/dL [facility] Blood Venous blood specimen / Unknown 08/11/2025 9:14 AM EDT 08/11/2025 9:14 AM EDT Milana Mata DO LAB BLOOD ORDERABLES Final R esult Performing Organization Address City/[facility]/ZIP Co de Phone Number [facility] [address] [place] [address] [phone] * Albumin, Random Urine W/Creatinine (08/11/2025 9:13 AM EDT) Creatinine, Urine 262.82 mg/dL [facility] Microalbumin Urine 9.0 mg/L [facility] Microalbum Creatinine Ratio Ur 3.4 <30 ug/mg cr [facility] Comment:Albumin/Creatinine R atio Reference Ranges: Normal: < 30 ug/mg creatinine Microalbuminuria: 30 - 300 ug/mg creatinineClinical Albuminuria: > 300 ug/mg creatinine Urine (Urine, Random) 08/11/2025 9:13 AM EDT 08/11/2025 9:46 AM EDT us Milana Mata DO LAB URINE ORDERABLES Final R esult Performing Organization Address City/State/[facility] Co de Phone Number [facility] [address] [place] [phone] * XR Shoulder 2+ Views Right (08/10/2025 1:20 PM EDT) Anatomical Region Laterality Modality Upper Extremities, Shoulder Right Radi ographic Imaging 08/10/2025 1:20 PM EDT Narrative 08/10/2025 1:33 PM EDT [address] [address] XRay Report Signed Patient: Reynaldo Osuna MR#: [id number] : 1970 Acct:[id number] Age/Sex: 55 / M ADM Date: 08/10/25 Loc: HO.HHCX Attending Dr: Milana Mata DO Ordering Physician: Milana Mata DO Date of Service: 08/10/25 Procedure(s): XR shoulder RT min 2V Accession Number(s): [id number] cc: Milana Mata DO Reason for Exam: [...] 08/10/25 1330 DD/ 1320 TD/TT: 08/10/25 1322 Hydraulic Plumber: Procedure Note Donotuseinterpreter, Image - 08/10/[address] [address] XRay Report Signed Patient: Patrick Osuna#: [id number] : 1970Acct:[id number] Age/Sex: 55 / MADM Date: 08/10/25 Loc: HO.HHCX Attending Dr: Milana Mata DO Ordering Physician: Milana Mata DO Date of Service: 08/10/25 Procedure(s): XR shoulder RT min 2V Accession Number(s): [id number] cc: Milana Mata DO Reason for Exam: [...] OV> 08/10/25 1330 DD/ 1320 TD/TT: 08/10/25 132 Hydraulic Plumber: Milana Mata DO IMG XR PROCEDURES Edited Res ult - Final * XR Shoulder 2+ Views Left (08/10/2025 1:20 PM EDT) Anatomical Region Laterality Modality Upper Extremities, Shoulder Left Radi ographic Imaging 08/10/2025 1:20 PM EDT Narrative 08/10/2025 1:34 PM EDT [address] [address] XRay Report Signed Patient: Reynaldo Osuna MR#: [id number] : 1970 Acct:[id number] Age/Sex: 55 / M ADM Date: 08/10/25 [facility] Dr: Milana Mata DO Ordering Physician: Milana Mata DO Date of Service: 08/10/25 Procedure(s): XR shoulder LT min 2V Accession Number(s): [id number] cc: Milana Mata DO Reason for Exam: [...] 08/10/25 1331 DD/ 1320 TD/TT: 08/10/25 1322 Hydraulic Plumber: Procedure Note Donotuseinterpreter, Image - 08/10/2025 [facility] [address] [place] [address] XRay Report Signed Patient: Reynaldo OsunaMR#: [id number] : 1970Acct:[id number] Age/Sex: 55 / MADM Date: 08/10/25 Loc: HO.HHCX Attending Dr: Milana Mata DO Ordering Physician: Milana Mata DO Date of Service: 08/10/25 Procedure(s): XR shoulder LT min 2V Accession Number(s): [id number] cc: Milana Mata DO Reason for Exam: [...] 08/10/25 1331 DD/ 1320 TD/TT: 08/10/25 1322 Hydraulic Plumber: Milana Mata DO IMG XR PROCEDURES Edited Res ult - Final * XR Hand 3+ Views Right (08/10/2025 1:02 PM EDT) Anatomical Region Laterality Modality Upper Extremities, Hand Right Radiogra phic Imaging 08/10/2025 1:02 PM EDT Narrative 08/10/2025 1:32 PM EDT [facility] [address] [place] [address] XRay Report Signed Patient: Reynaldo Osuna MR#: [id number] : 1970 Acct:[id number] Age/Sex: 55 / M ADM Date: 08/10/25 Loc: DAVIONX Attending Dr: Milana Mata DO Ordering Physician: Milana Mata DO Date of Service: 08/10/25 Procedure(s): XR hand RT min 3V Accession Number(s): [id number] cc: Milana Mata DO Reason for Exam: [...] 08/10/25 1330 DD/ 1302 TD/TT: 08/10/25 1322 Hydraulic Plumber: Procedure Note Donotuseinterpreter, Image - 08/10/2025 [place] [address] XRay Report Signed Patient: Reynaldo OsunaMR#: [id number] : 1970Acct:[id number] Age/Sex: 55 / MADM Date: 08/10/25 Loc: DAVIONX Attending Dr: Milana Mata DO Ordering Physician: Milana Mata DO Date of Service: 08/10/25 Procedure(s): XR hand RT min 3V Accession Number(s): [id number] cc: Milana Mata DO Reason for Exam: [...] IMPRESSION: Normal right hand. Electronically signed by: Eseqiuel Harris MD 08/10/2025 01:30 PM EDT Dictated By: Esequiel Harris MD Signed By: <Electronically signed by Esequiel Harris MD in OV> 08/10/25 1330 DD/ 1302 TD/TT: 08/10/25 1322 Hydraulic Plumber: Milana Mata DO IMG XR PROCEDURES Edited Res ult - Final * XR Hand 3+ Views Left (08/10/2025 12:30 PM EDT) Anatomical Region Laterality Modality Upper Extremities, Hand Left Radiogra phic Imaging 08/10/2025 12:3 0 PM EDT Narrative 08/10/2025 1:32 PM EDT [address] [address] XRay Report Signed Patient: Reynaldo Osuna MR#: [id number] : 1970 Acct:[id number] Age/Sex: 55 / M ADM Date: 08/10/25 Loc: .HHCX Attending Dr: Milana Mata DO Ordering Physician: Milana Mata DO Date of Service: 08/10/25 Procedure(s): XR hand LT min 3V Accession Number(s): [id number] cc: Milana Mata DO Reason for Exam: [...] 08/10/25 1330 DD/ 1230 TD/TT: 08/10/25 1232 Hydraulic Plumber: Procedure Note Donotuseinterpreter, Image - 08/10/[address] [address] XRay Report Signed Patient: Reynaldo OsunaMR#: [id number] : 1970Acct:[id number] Age/Sex: 55 / MADM Date: 08/10/25 Loc: HO.HHCX Attending Dr: Milnaa Mata DO Ordering Physician: Milana Mata DO Date of Service: 08/10/25 Procedure(s): XR hand LT min 3V Accession Number(s): [id number] cc: Milana Mata DO Reason for Exam: [...] 08/10/25 1330 DD/ 1230 TD/TT: 08/10/25 1232 Hydraulic Plumber: Milana Mata DO IMG XR PROCEDURES Edited [...] Urine Drug Screen (07/28/2025 10:20 AM EDT) THC Negative Negative Cocaine Screen, [...] - 07/28/2025 10:20 AM EDT UTOX cup Lot#[id number] Exp. 07/28/26 Internal Pass Control Milana Mata DO POINT OF CARE TEST ENTER/MITZI T ORDERABLES Final Result * CT Abdomen w/ Contrast (07/21/2025 9:51 AM EDT) Anatomical Region Laterality Modality Body, Abdomen Computed Tomogra phy 07/21/2025 9:51 AM EDT Narrative 07/21/2025 10:34 AM EDT [address] [address] [address] Scan Report Signed Patient: Reynaldo Osuna MR#: [id number] : 1970 Acct:[id number] Age/Sex: 55 / M ADM Date: 07/21/25 Loc: HO.CT Attending Dr: Mona Webber MD Ordering Physician: Mona Chan MD Date of Service: 07/21/25 Procedure(s): CT abdomen w IV con Accession Number(s): [id number] cc: Mona Chan MD Report Number: [id number]: Total DLP = 343.00 mGy-cm Reason for [...] 07/21/25 1031 DD/ 0951 TD/TT: 07/21/25 1013 Hydraulic Plumber: Procedure Note Donotuseinterpreter, Image - 07/21/[address] [place] [address] [address] Scan Report Signed Patient: Patrick Osuna#: [id number] : 1970Acct:[id number] Age/Sex: 55 / MADM Date: 07/21/25 Loc: HO.CT Attending Dr: Mona Webber MD Ordering Physician: Mona Chan MD Date of Service: 07/21/25 Procedure(s): CT abdomen w IV con Accession Number(s): [id number] cc: Mona Chan MD Report Number: [id number]: Total DLP = 343.00 mGy-cm Reason for [...] 07/21/25 1031 DD/ 0951 TD/TT: 07/21/25 1013 Hydraulic Plumber: Mona Webber MD IMG CT PROCEDURES Edited Result - Final * CT Chest w/ Contrast (07/21/2025 9:51 AM EDT) Anatomical Region Laterality Modality Body, Chest Computed Tomogra phy 07/21/2025 9:51 AM EDT Narrative 07/21/2025 10:28 AM EDT [address] [address] [address] Scan Report Signed Patient: Reynaldo Osuna MR#: [id number] : 1970 Acct:[id number] Age/Sex: 55 / M ADM Date: 07/21/25 Loc: HO.CT Attending Dr: Mona Webber MD Ordering Physician: Mona Chan MD Date of Service: 07/21/25 Procedure(s): CT chest w IV con Accession Number(s): [id number] cc: Mona Chan MD Report Number: [id number]: Total DLP = 343.00 mGy-cm Reason for [...] 07/21/25 1025 DD/ 0951 TD/TT: 07/21/25 1013 Hydraulic Plumber: Procedure Note Donotuseinterpreter, Image - 07/21/[address] [address] [address] Scan Report Signed Patient: Patrick Osuna#: [id number] : 1970Acct:[id number] Age/Sex: 55 / MADM Date: 07/21/25 Loc: HO.CT Attending Dr: Mona Webber MD Ordering Physician: Mona Chan MD Date of Service: 07/21/25 Procedure(s): CT chest w IV con Accession Number(s): [id number] cc: Mona Chan MD Report Number: [id number]: Total DLP = 343.00 mGy-cm Reason for [...] 07/21/25 1025 DD/ 0951 TD/TT: 07/21/25 1013 Hydraulic Plumber: Mona Webber MD IMG CT PROCEDURES Edited Result - Final * D Dimer High Sensitivity (07/10/2025 9:01 AM EDT) [facility] D Dimer High Sensitivity <150 NG/ML [facility] Comment:D-DIMER HS REFERENCE RANGENote: Our assay [...] MD LAB BLOOD ORDERAB LES Final Result [facility] [address] [place] [phone] * (ABNORMAL) CBC auto differential (07/10/2025 9:01 AM EDT) Only the most recent of2 resultswithin the time period is included. [facility] White Blood Count 6.6 4.8 - 10.8 X10*3/uL [facility] Red Blood Count 4.71 4.60 - 5.80 X10*6/uL [facility] Hemoglobin 12.3(L) 14.0 - 18.0 g/dl [facility] Hematocrit 37.9(L) 42.0 - 52.0 % [facility] Mean Corpuscular Volume 80.5 80.0 - 98.0 fL [facility] Mean Corpuscular Hemoglobin 26.1(L) 27.0 - 33.0 pg [facility] Mean Corpuscular HGB Conc 32.5 31.0 - 36.0 g/dl [facility] Red Cell Distribution Width 14.6 11.0 - 16.0 % [facility] Platelet Count 247 160 - 400 X10*3/uL [facility] Mean Platelet Volume 12.3 9.4 - 12.4 fL [facility] Neutrophils Percent Auto 62.9 45 - 73 % [facility] Imm Gran Pct Auto 0.3 0.0 - 0.4 % [facility] Lymphocytes Percent Auto 27.5 20 - 40 % [facility] Monocytes Percent Auto 7.0 2 - 11 % [facility] Eosinophils Percent Auto 1.8 0 - 4 % [facility] Basophils Percent Auto 0.5 0 - 2 % [facility] NRBC Pct Auto 0.0 0.0 - 0.2 /100WBC [facility] Neutrophils Absolute Auto 4.1 2.0 - 8.3 x10*3/uL [facility] Imm Gran Abs Auto 0.02 0.00 - 0.03 X10*3/uL [facility] Lymphocytes Absolute Auto 1.8 1.2 - 4.9 X10*3/uL [facility] Monocytes Absolute Auto 0.5 0.1 - 1.2 X10*3/uL [facility] Eosinophils Absolute Auto 0.1 0.0 - 0.4 X10*3/uL [facility] Basophils Absolute Auto 0.0 0.0 - 0.2 X10*3/uL [facility] NRBC Abs Auto 0.000 0.0 - 0.012 X10*3/uL [facility] 07/10/2025 9:01 AM EDT 07/10/2025 11:19 AM EDT Generic External Data Provider LAB BLOOD ORDERAB LES Final Result Performing Organization Address [facility] de Phone Number [facility] [address] [place] [phone] * (ABNORMAL) Sed Rate by Modified Jose Juanergren (07/10/2025 9:01 AM EDT) Only the most recent of2 resultswithin the time period is included. Erythrocyte Sedimentation Rate 25(H) 0 - 15 MM/HR [facility] Comment:Patients with polycy themia and many hemoglobin abnormalitiesmay have depressed sed rates whereas patients with anemiamay have elevated sed rates. 07/10/2025 9:01 AM EDT 07/10/2025 11:12 AM EDT Generic External Data Provider LAB BLOOD ORDERAB LES Final Result Performing Organization Address [facility] Phone Number [facility] [address] [place] [phone] * Immunoglobulin E (07/10/2025 9:01 AM EDT) Only the most recent of2 resultswithin the time period is included. Immunoglobulin E 72 <RP=902 kU/L [facility] Comment:THIS TEST WAS PERFOR MED AT:[facility] [address] [phone] VILLALPANDO MD 07/10/2025 9:01 AM EDT 07/10/2025 11:12 AM EDT Generic External Data Provider LAB BLOOD ORDERAB LES Final Result Performing Organization Address [facility] de Phone Number [facility] [address] [place] [phone] * XR Chest 2 Views (07/07/2025 9:30 AM EDT) Anatomical Region Laterality Modality Chest Radiographic Marybel ging 07/07/2025 9:30 AM EDT Narrative 07/07/2025 9:39 AM EDT [address] [address] XRay Report Signed Patient: Reynaldo Osuna MR#: [id number] : 1970 Acct:[id number] Age/Sex: 55 / M ADM Date: 07/07/25 Loc: CX Attending Dr: Chance Ortiz MD Ordering Physician: Willy Rock MD Date of Service: 07/07/25 Procedure(s): XR chest 2V Accession Number(s): [id number] cc: Milana Mata DO; Willy Rock MD [...] in OV> 07/07/[address] DD/ 9 TD/TT: 07/07/25930 Hydraulic Plumber: Procedure Note Donotuseinterpreter, Image - 07/07/[address] [address] XRay Report Signed Patient: Reynaldo OsunaMR#: [id number] : 1970Acct:[id number] Age/Sex: 55 / MADM Date: 07/07/25 Loc: NIKOSCX Attending Dr: Chance Ortiz MD Ordering Physician: Willy Rock MD Date of Service: 07/07/25 Procedure(s): XR chest 2V Accession Number(s): [id number] cc: Milana Mata DO; Willy Rock MD [...] in OV> 07/07/[address] DD/ 9 TD/TT: 07/07/25930 Hydraulic Plumber: Willy Rock MD IMG XR PROCEDURES Edited Result - Final * Rast Allergen (07/07/2025 9:24 AM EDT) Pathologist [facility] Rast Allergen SEE NOTE [facility] Comment:SEE SCANNED REPORT I N EMR 07/07/2025 9:24 AM EDT 07/13/2025 12:05 PM EDT Narrative [facility] - 07/13/2025 12:06 PM EDT DOG DANDER REFLEX Generic External Data Provider HISTORICAL/NON OR DERABLE LABS Final Result [facility] [address] [place] [phone] * Respiratory Allergy Profile Region I (07/07/2025 9:24 AM EDT) Mouse Urine Proteins (E72) IgE <0.10 [facility] Class 0 [facility] Cockroach (I6) IgE 0.19 [facility] Class 0/1 [facility] Dermatophagoides farinae (D2) IgE 0.21 [facility] Class 0/1 [facility] Cat Dander (E1) IgE <0.10 [facility] Class 0 [facility] Dog Dander (E5) IgE 0.35 [facility] Class 1 [facility] Bhupinder Grass (G6) IgE <0.10 [facility] Class 0 [facility] Cladosporium herbarum (M2) IgE <0.10 [facility] Class 0 [facility] Aspergillus Fumigatis (M3) IgE <0.10 [facility] Class 0 [facility] Alternaria alternata (M6) IgE <0.10 [facility] Class 0 [facility] [place] (t6) IgE <0.10 [facility] Class 0 [facility] Reg[place] (T7) IgE 7.70 [facility] Class 3 [facility] [place] Tree (T10) IgE <0.10 [facility] Class 0 [facility] [place] (T11) IgE <0.10 [facility] Class 0 [facility] [place] (T14) IgE <0.10 [facility] Class 0 [facility] [place] (t15) IgE 016 [facility] Class 0/1 [facility] [place] (T70) IgE <0.10 [facility] Class 0 [facility] Common Ragweed (Short) (W1) IgE <0.10 [facility] Class 0 [facility] Mugwort (w6) IgE <0.10 [facility] Class 0 [facility] Dermatophagoides pteronyssinus (D1) IgE 0.25 [facility] Class 2 [facility] B[place] Grass (g2) IgE <0.10 [facility] Class 0 [facility] Penicillium Notatum (M1) IgE <0.10 [facility] Class 0 [facility] Birch (T3) IgE 40.20 [facility] Class 4 [facility] Elm (t8) IgE <0.10 [facility] Class 0 [facility] Maple (Jenkins) (T1) IgE 2.12 [facility] Class 2 [facility] Rough Pigweed (W14) IgE <0.10 [facility] Class 0 [facility] Sheep [place] (W18) IgE <0.10 [facility] Class 0 [facility] Allergen Comment See Below [facility] Comment: Specific Level of AllergenIGE Class [...] and its analyticalperformance characteristics have been determined by[facility]. It has not been cleared or approvedby the U.S. Food and Drug Administration. This assayhas been validated pursuant to the CLIA regulationsand is used for clinical purposes.THIS TEST WAS PERFORMED AT:[facility] [place] [id number] VILLALPANDO MD 07/07/2025 9:24 AM EDT 07/07/2025 11:20 AM EDT us Generic External Data Provider LAB BLOOD ORDERAB LES Final Result [facility] [address] [place] [phone] [phone] * (ABNORMAL) Urinalysis Complete (07/07/2025 9:24 AM EDT) Color Urine Yellow [facility] Appearance Urine Turbid [facility] PH 5.5 5.0 - 9.0 [facility] Glucose Urine UA Negative Negative mg/dL [facility] Urine Blood Negative Negative [facility] Specific [place] - Urine >=1.030(H) 1.005 - 1.025 [facility] Urine Protein Negative Neg-Trace mg/dL [facility] Urine Ketones Negative Negative mg/dL [facility] Nitrite Urine Negative Negative [facility] Leukocyte Esterase Urine Negative Negative [facility] RBC Urine 0-2 0 - 2 /HPF [facility] Urine WBC 0-5 0 - 5 /HPF [facility] Urine Squamous Epithelial Cell 0-2 0 - 2 /HPF [facility] Urine Bacteria None Seen None Seen [facility] Hyaline Casts, Urine 0-2 0 - 2 /LPF [facility] Urine (Urine, Random) 07/07/2025 9:24 AM EDT 07/07/2025 12:18 PM EDT us Willy Rock MD LAB URINE ORDERABLES Final Resul t Performing Organization Address City/[facility] Co de Phone Number [facility] [address] [place] [phone] * (ABNORMAL) C-reactive Protein (07/07/2025 9:24 AM EDT) C Reactive Protein 1.04(H) < or = 0.50 mg/dL [facility] Blood Venous blood specimen / Unknown 07/07/2025 9:24 AM EDT 07/07/2025 11:20 AM EDT us Milana Mata DO LAB BLOOD ORDERABLES Final R esult Performing Organization Address City/[facility]/ZIP Co de Phone Number [facility] [address] [place] [phone] * (ABNORMAL) Comprehensive Metabolic Panel (07/07/2025 9:24 AM EDT) Sodium 140 135 - 145 mmol/L [facility] Potassium 3.9 3.3 - 5.1 mmol/L [facility] Chloride 104 96 - 108 mmol/L [facility] Carbon Dioxide 30(H) 22 - 29 mmol/L [facility] Anion Gap 10(L) 12 - 20 [facility] Urea Nitrogen (BUN) 14 9 - 16 mg/dL [facility] Creatinine, Serum 0.78 0.5 - 1.4 mg/dL [facility] Estimated Glomerular Filt Rate >60 [facility] Comment:Chronic Kidney Disea se: Estimated GFR < 60 mL/min/[id number] Kidney Disease: Estimated GFR < 15 mL/min/1.73m2 Glucose 96 60 - 115 mg/dL [facility] Calcium 9.1 8.4 - 10.2 mg/dL [facility] Bilirubin, Total 0.4 0.0 - 1.0 mg/dL [facility] Aspartate Amino Transferase 22 5 - 37 U/L [facility] Alanine Aminotransferase 23 0 - 40 U/L [facility] Total Protein 7.3 6.5 - 8.0 g/dL [facility] Albumin Level 4.4 3.5 - 5.0 g/dL [facility] Alkaline Phosphatase 103 39 - 117 U/L [facility] Blood Venous blood specimen / Unknown 07/07/2025 9:24 AM EDT 07/07/2025 11:20 AM EDT us Willy Rock MD LAB BLOOD ORDERABLES Final Resul t [facility] [address] [place] [phone] * (ABNORMAL) Fecal Globin by Immunochemistry (11/15/2023 9:03 AM EST) Fecal Globin By Immunochemistry SEE NOTE(A) [facility] Comment:FECAL GLOBIN BY IMMU NOCHEMISTRY Micro Number: [id number] Test Status: Final Specimen Source: Not given Specimen Quality: Adequate Fecal Globin: DetectedTHIS TEST WAS PERFORMED AT:[facility] [place] [id number] VILLALPANDO MD Stool Rectal contents / Unknown 11/15/2023 9:03 AM EST 11/15/2023 12:27 PM EST Fátima Bridges BLUE LINE OPERATOR LAB BODY FLUIDS AND STOOLS ORD ERABLES Final Result [facility] [address] [place] [phone] * Colonoscopy (04/19/2023 2:32 PM EDT) Colonoscopy Normal Normal Comment:Repeat in 5 years Historical Provider HEALTH MAINTENANCE Final Result from Last 3 Months or Most Recently Relevant to Health Maintenance Insurance [facility] C[facility] MEDICAID STAND ADULT Care Teams Network Security Administrator Relationship Specialty Start Date End Date Milana Mata DO [address] [place] [phone] PCP - General Family Medicine 07/02/24
--- OUTSIDE RECORDS SUMMARY | 2025-10-06 11:28 | XMS_ITS | Encounter Summary ---
Author Organization [employer] Address [address] [facility] 7t [place] [address] Care Team Providers Care Dry Wall Finisher Name Role Phone Sandra De Jesus Primary Care Provider + Name, Daniel العراقي Primary Care Provider [phone] Milana Mata DO Primary Care Provider [phone] Reason for Visit * Reason Comments Med Refill Encounter Details Date Type Department Care Team (Late st Contact Info) Description 10/21/2023 Refill [facility] MED[facility] [address] [place] [address] Sandra De Jesus FNP [address] [place] [address] Social History Tobacco Use Types Packs/Day Years [...] 10:00 AM EST Clinical Support [facility] [facility] [address] [place] [address] Stacia Mcfarland RN 12/28/2025 11:00 AM EDT Office Visit [facility] OPT[facility] [address] [place] [address] Edin, Nancy, OD 230 [place] [address] documented as of this encounter Visit Diagnoses Not on filedocumented in this encounter Additional Health Concerns Assessment Noted Time PHQ-9 Depression Total Score: 12 023 2:23 PM EDT documented as of this encounter Care Teams Dry Wall Finisher Relationship Specialty Start Date End Date Sandra De Jesus FNP [address] [place] [address] PCP - General Family Medicine 07/06/23 06/23/24 Daniel Krause MD [address] [place] [address] PCP - General Internal Medicine 06/24/24 07/01/24 Milana Mata DO [address] [place] [address] PCP - General Family Medicine 07/02/24 documented as of this encounter
--- OUTSIDE RECORDS SUMMARY | 2025-10-06 11:28 | XMS_ITS | Encounter Summary ---
Author Organization [employer] Address [address] [facility] [address] 7t [place] [address] Care Team Providers Care Chainstitch Binder Name Role Phone Sandra De Jesus Primary Care Provider + Name, Daniel العراقي Primary Care Provider [phone] Milana Maat DO Primary Care Provider [phone] Encounter Details Date Type Department Care Team (Late st Contact Info) Description 09/03/2023 Abstract [facility] MED[facility]INE [address] [place] [address] Iram Resendiz Social History Tobacco Use Types [...] Description 10/28/2025 10:00 AM EST Clinical Support [facility] MEDICINE [address] [place] [address] Stacia Mcfarland RN 12/28/2025 11:00 AM EDT Office Visit [facility] OPTOMETRY [address] [place] [address] Edin, Nancy, OD [address] [place] [address] documented as of this encounter Visit Diagnoses Not on filedocumented in this encounter Additional Health Concerns Assessment Noted Time PHQ-9 Depression Total Score: 12 023 2:23 PM EDT documented as of this encounter Care Teams Chainstitch Binder Relationship Specialty Start Date End Date Sandra De Jesus FNP [address] [place] [address] PCP - General Family Medicine 07/06/23 06/23/24 Daniel Krause MD [address] [place] [address] PCP - General Internal Medicine 06/24/24 07/01/24 Milana Mata DO [address] [place] [address] PCP - General Family Medicine 07/02/24 documented as of this encounter
--- OUTSIDE RECORDS SUMMARY | 2025-10-06 11:28 | XMS_ITS | Encounter Summary ---
Author Organization [employer] Address [address] [facility] 7t [place] [address] Care Team Providers Care Assistant Professor In Family Studies Name Role Phone Campbell Salugero AGNAny Primary Care Provider Unavail Sandra Mercado Primary Care Provider [phone] Daniel Krause MD Primary Care Provider [phone] Milana Mata DO Primary Care Provider + [phone] Reason for Visit * Reason Comments Med Refill Encounter Details Date Type Department Care Team (Late Contact Info) Description 07/04/2023 Refill [facility] MEDICINE [address] [place] [address] Name, MD Daniel [address] [place] [address] Social History Tobacco Use Types Packs/Day Years [...] Description 10/28/2025 10:00 AM EST Clinical Support [facility] MEDICINE [address] [place] [address] Stacia Mcfarland, RN 12/28/2025 11:00 AM EDT Office Visit [facility] OPTOMETRY [address] [place] [address] Nancy Jesus, RONAK 230 [place] [address] documented as of this encounter Visit Diagnoses Not on filedocumented in this encounter Additional Health Concerns Assessment Noted Time PHQ-9 Depression Total Score: 12 023 2:23 PM EDT documented as of this encounter Care Teams Assistant Professor In Family Studies Relationship Specialty Start Date End Date Campbell Salguero AGNP PCP - General Family Medicine 09/25/22 07/05/23 Sandra De Jesus FNP 230 [place] [address] PCP - General Family Medicine 07/06/23 06/23/24 Daniel Krause MD [address] [place] [address] PCP - General Internal Medicine 06/24/24 07/01/24 Milana Mata DO [address] [place] [address] PCP - General Family Medicine 07/02/24 documented as of this encounter
--- OUTSIDE RECORDS SUMMARY | 2025-10-06 11:28 | XMS_ITS | Encounter Summary ---
Author Organization [employer] Address [address] [facility] 7t [place] [address] Care Team Providers Care Science Interpreter Name Role Phone Campbell Salguero Primary Care Provider Unavail Sandra Mercado Primary Care Provider [phone] NameDaniel MD Primary Care Provider [phone] Milana Mata DO Primary Care Provider [phone] Reason for Visit * Reason Onset Date Comments Nurse Triage 05/28/2023 Encounter Details Date Type Department Care Team (Late st Contact Info) Description 05/28/2023 Telephone [facility] MEDICINE [address] [place], [place] [phone] Campbell Salguero AGNP Nurse Triage Social History [...] 9:23 AM EDT Call to Pt with [employer] Water Pollution Scientist ID [id number] Pt is given message from EVIN Salguero, [...] accepted this outcome Please contact lissett at [phone] documented in this encounter Plan of Treatment Upcoming Encounters Date Type Department Care Team (Late st Contact Info) Description 10/28/2025 10:00 AM EST Clinical Support [facility] MEDICINE [address] [place] [address] Stacia Mcfarland, RN 12/28/2025 11:00 AM EDT Office Visit [facility] OPTOMETRY [address] [place], [place] [phone] Nancy Jesus, OD 230 [place] [address] documented as of this encounter Visit Diagnoses Diagnosis Benign prostatic hyperplasia with incomplete bladder emptying- Primary documented in this encounter Additional Health Concerns Assessment Noted Time PHQ-9 Depression Total Score: 12 023 2:23 PM EDT documented as of this encounter Care Teams Science Interpreter Relationship Specialty Start Date End Date Campbell Salguero AGNP PCP - General Family Medicine 09/25/22 07/05/23 Sandra De Jesus FNP [address] [place] [address] PCP - General Family Medicine 07/06/23 06/23/24 Daniel Krause MD [address] [place] [address] PCP - General Internal Medicine 06/24/24 07/01/24 Milana Mata DO [address] [place] [address] PCP - General Family Medicine 07/02/24 documented as of this encounter
--- OUTSIDE RECORDS SUMMARY | 2025-10-06 11:28 | XMS_ITS | Clinical Summary ---
Author Organization [facility] Address [address] [place] [address] Phone Care Team Providers Care Cath Lab Radiology Technician Name Role Phone Christiana Campbell MD Primary [...] Date/Time Associated Diagnosis Comments BASIC METABOLIC PANEL (BMP) Routine 02/14/2023 5:33 AM EDT from Last 3 Months or Most Recently Relevant to Health Maintenance Results * (ABNORMAL) Basic metabolic panel (02/14/2023 5:33 AM EDT) SODIUM 140 133 - 146 mmol/L [facility] CHLORIDE 102 96 - 108 mmol/L [facility] POTASSIUM 4.4 3.3 - 5.1 mmol/L [facility] CO2 25 21 - 35 mmol/L [facility] BUN 19 6 - 19 mg/dL [facility] CREATININE 1.00 0.5 - 1.5 mg/dL [facility] GLUCOSE 146(H) 70 - 99 mg/dL [facility] CALCIUM 8.9 8.4 - 10.3 mg/dL [facility] EGFR 89 >59 mL/min/1.7 3m2 [facility] Comment:Estimated glomerular filtration rate calculated using the CKD-EPI refit equation. ANION GAP 17 10 - 20 mmol/L [facility] Blood 02/14/2023 5:33 AM EDT 02/14/2023 5:52 AM EDT us Tierra Pollock MD LAB BLOOD BKR ORDERABLES Fin al Result [address] [address] from Last 3 Months or Most Recently Relevant to Health Maintenance Insurance [employer] [place] [address] [place] [address] [employer] ACO Advance Directives For more information, please contact: [phone] (9AM - 5PM Ann/[facility], Sunday-Sunday) * Full Code (Latest Code [...] Code Status Confirmed With: Patient Care Teams Cath Lab Radiology Technician Relationship Specialty Start Date End Date Christiana Campbell MD PCP - General Internal Medicine 09/27/22 Additional Source Comments The information contained in this document represents components of the legal health record. It is not the complete legal health record.[facility]
--- OUTSIDE RECORDS SUMMARY | 2025-10-06 11:28 | XMS_ITS | Encounter Summary ---
Author Organization [employer] Address [address] [facility] 7t [place] [address] Care Team Providers Care Batch Plant Operator Name Role Phone Campbell Salguero AGNAny Primary Care Provider Unavail Sandra Mercado Primary Care Provider +- Daniel Krause MD Primary Care Provider [phone] Milana Mata DO Primary Care Provider [phone] Reason for Visit * Reason Comments Med Refill Encounter Details Date Type Department Care Team ([facility] st Contact Info) Description 04/05/[address] [facility] MED & PEDS [address] [place], [place] [phone] Evie Francisco MD [address] [place] [address] Allergic rhinitis, unspecified seasonality, unspecified trigger Social [...] Description 10/28/2025 10:00 AM EST Clinical Support [facility] MEDICINE [address] [place] [address] Stacia Mcfarland, RN 12/28/2025 11:00 AM EDT Office Visit [facility] OPTOMETRY [address] [place], [place] [phone] Nancy Jesus, OD [address] [place] [address] documented as of this encounter Visit Diagnoses Diagnosis Allergic rhinitis, unspecified seasonality, unspecified trigger documented in this encounter Additional Health Concerns Assessment Noted Time PHQ-9 Depression Total Score: 12 023 2:23 PM EDT documented as of this encounter Care Teams Batch Plant Operator Relationship Specialty Start Date End Date Campbell Salguero AGNP PCP - General Family Medicine 09/25/22 07/05/23 Sandra De Jesus FNP [address] [place] [address] PCP - General Family Medicine 07/06/23 06/23/24 [place] [address] PCP - General Internal Medicine 06/24/24 07/01/24 Milana Mata DO [address] [place] [address] PCP - General Family Medicine 07/02/24 documented as of this encounter
--- OUTSIDE RECORDS SUMMARY | 2025-10-06 11:28 | XMS_ITS | Encounter Summary ---
Author Organization [employer] Address [address] [facility] 7t [place] [address] Care Team Providers Care Preschool Program Director Name Role Phone Milana Mata DO Primary Care Provider + [phone] Encounter Details Date Type Department Care Team (Late st Contact Info) Description 05/20/2025 Orders Only [facility] MEDICINE [address] [place], [place] [phone] Milana Mata DO [address] [place], [place] [phone] Social History Tobacco Use Types Packs/Day Years [...] Description 10/28/2025 10:00 AM EST Clinical Support [facility] MEDICINE [address] [place] [address] Stacia Mcfarland, RN 12/28/2025 11:00 AM EDT Office Visit [facility] OPTOMETRY [address] [place] [address] Edin, Nancy, OD [address] [place] [address] documented as of this encounter Visit Diagnoses Not on filedocumented in this encounter Additional Health Concerns Assessment Noted Time PHQ-9 Depression Total Score: 0 01/01/20 25 10:51 AM EDT documented as of this encounter Care Teams Preschool Program Director Relationship Specialty Start Date End Date Milana Mata DO [address] [place] [address] PCP - General Family Medicine 07/02/24 documented as of this encounter
--- OUTSIDE RECORDS SUMMARY | 2025-10-06 11:28 | XMS_ITS | Patient Health Record ---
Author Organization [facility] Address [address] [place] [address] Care Team Providers Care Manager Disaster Recovery Name Role Phone Milana Mata M.D. Primary Care Provider Raphael Cortes Jr Unavailable Allergies Allergen (clinical drug ingredient) Drug/Non Drug Allergy documented on EMR Reaction Allergy Type Onset Date Status Penicillin Unknown Drug Allergy Active Results Component Value Reference Range Flag Notes Complete Blood Count no Diff Reviewed date:01/06/2025 01:45:38 PM Interpretation: Performing Lab:[facility], [address] [place] [phone] Notes/Report: White Blood Count 6.3 4.8-10.8 X10*3/uL N Red Blood Count 4.75 4.60-5.80 X10*6/uL N Hemoglobin 12.3 14.0-18.0 g/dl L Hematocrit 37.2 42.0-52.0 % L Mean Corpuscular Volume 78.3 80.0-98.0 fL L Mean Corpuscular Hemoglobin 25.9 27.0-33.0 pg L Mean Corpuscular HGB Conc 33.1 31.0-36.0 g/dl N Red Cell Distribution Width 14.6 11.0-16.0 % N Platelet Count 292 160-400 X10*3/uL N Mean Platelet Volume 11.6 9.4-12.4 fL N NRBC Pct Auto 0.0 0.0-0.2 /100WBC N NRBC Abs Auto 0.000 0.0-0.012 X10*3/uL N Liver Panel Reviewed date:01/06/2025 01:45:32 PM Interpretation: Performing Lab:[address] [phone] Notes/Report: Bilirubin Total 0.3 0.0-1.0 mg/dL N Bilirubin Direct 0.1 0.0-0.5 mg/dL N Aspartate Amino Transferase 24 5-37 U/L N Alanine Aminotransferase 20 0-40 U/L N Total Protein 8.1 6.5-8.0 g/dL H Albumin Level 4.3 3.5-5.0 g/dL N Alkaline Phosphatase 99 39-117 U/L N Blood Urea Nitrogen Reviewed date:01/06/2025 01:45:29 PM Interpretation: Performing Lab:[address] [address] Notes/Report: Blood Urea Nitrogen 13 9-16 mg/dL N Creatinine Reviewed date:01/06/2025 01:45:24 PM Interpretation: Performing Lab:[address] [address] Notes/Report: Creatinine 0.78 0.5-1.4 mg/dL N Estimated Glomerular Filt Rate > 60 Chronic Kidney Disease: Estimated GFR < 60 mL/min/1.73m2 Severe Kidney Disease: Estimated GFR < 15 mL/min/1.73m2 Lipase Reviewed date:01/06/2025 01:45:19 PM Interpretation: Performing Lab:[address] [address] Notes/Report: Lipase 20 8-78 U/L N CT abdomen pelvis w con Reviewed date:01/06/2025 01:45:13 PM Interpretation: Performing Lab: Notes/Report: [address] [address] [address] Scan Report Signed Patient: Reynaldo Osuna MR#: [id number] : 1970 Acct:[id number] Age/Sex: 54 / M ADM Date: 01/06/25 Loc: HO.CT Attending Dr: Raphael Powell MD Ordering Physician: Raphael Powell MD Date of Service: 01/06/25 Procedure(s): CT abdomen pelvis w IV con Accession Number(s): [id number] cc: Raphael Powell MD; Milana Mata DO Report Number: [id number]: Total DLP = 565.00 mGy-cm EXAMINATION: CT [...] 01/06/25 1134 DD/ 1004 TD/TT: 01/06/25 1035 Air Brake Operator: Reason For Referral Referring Provider First Name Milana Referring Provider Last Name Adolfo Referred Organization [facility] Referred Provider Raphael Powell Jr Referred Address [address] [place] [address],[place] [address],[place], [place],[address], Referred Provider Specialty Gastroentero logy General Notes Katherine Kraus 2024 02:11:14 PM >requested [facility] referral from [facility] [phone] Referral Priority Routine Medications Medication SIG (Take, Route, Frequency, Duration) Notes Start Date End Date Status cloNIDine HCl 0.2 MG Tablet 1 tablet Ora lly Once a day Unknown Acetaminophen ER 650 MG Tablet Extended Release TAKE 1 TABLET BY MOUTH EVERY 8 HOURS NEEDED FOR MILD PAIN DO NOT BREAK, CRUSH, DISSOLVE OR CHEW Oral; Duration: 20 Days Unknown Eliquis 5 MG Tablet 1 tablet Orally Twic e a day; Duration: 30 day(s) Unknown traMADol HCl 50 MG Tablet TAKE 1 TABLET BY MOUTH EVERY TWELVE HOURS NEEDED FOR SEVERE PAIN Oral; Duration: 28 Days Unknown hydroCHLOROthiazide 12.5 MG Capsule 1 capsule in the morning Orally Once a day Unknown Fenofibrate 54 MG Tablet 1 tablet with f ood Orally Once a day Unknown Ventolin HFA 108 (90 Base) MCG/ACT Aerosol Solution INHALE 2 PUFFS BY MOUTH EVERY 4 HOURS NEEDED FOR WHEEZING OR SHORTNESS OF BREATH Inhalation; Duration: 17 Days Unknown Omeprazole 20 MG Capsule Delayed Release 1 capsule 1/2 to 1 hour before morning meal Orally Once a day; Duration: 30 day(s) 11/12/2024 Unknown Trulicity 0.75 MG/0.5ML Solution Auto-injector INJECT ONE PEN (=0.75MG) SUBCUTANEOUSLY ONCE A WEEK DIRECTED Subcutaneous; Duration: 28 Days Unknown Baclofen 10 MG Tablet TAKE 1 TABLET BY M OUTH THREE TIMES DAILY IN THE MORNING, AT NOON, AND AT BEDTIME NEEDED FOR MUSCLE SPASMS Oral; Duration: 30 Days Unknown Rosuvastatin Calcium 40 MG Tablet 1 tablet Orally Once a day Unknown Alfuzosin HCl ER 10 MG Tablet Extended Release 24 Hour 1 tablet immediately after the same meal Orally Once a day Unknown Meloxicam 7.5 MG Tablet 1 tablet Orally Once a day Unknown QUEtiapine Fumarate 100 MG Tablet 1 tablet Orally Once a day Unknown OXcarbazepine 300 MG Tablet 1 tablet Ora lly Twice a day Unknown amLODIPine Besylate 5 MG Tablet 1 tablet Orally Once a day Unknown Losartan Potassium 50 MG Tablet 1 tablet Orally Once a day Unknown Sertraline HCl 100 MG Tablet 1 tablet Or ally Once a day Unknown Immunizations Vaccine Route Administration Date Status Comme nts Influenza Unknown 07/10/2018 Administered Influenza Unknown 09/05/2022 Administered Influenza Unknown 07/15/2024 Administered Social History Tobacco Use: Social History Observation Description Date Details (start date - stop date) Never Smoker NA - NA Social History Drugs/Alcohol: Social Info Question Answer Notes Alcohol Screen Did you have a drink containing alcohol in the past year? No Points 0 Interpretation Negative Tobacco Use: Social Info Question Answer Notes Tobacco Use/Smoking Patient is a nonsmoker Additional Details Category Social Info Options Details Miscellaneous: Marital status: single Occupation: unemployed Problems Problem Type SNOMED Code ICD Code Onset Dates Problem Status W/U Status Risk Notes Problem Diverticulitis of colon (648760741) Diverticulitis of large intestine without perforation or abscess without bleeding (K57.32) Active confirmed Problem Generalized abdominal pain (813197655) Generalized abdominal pain (R10.84) Active confirmed Problem Diverticulitis (13233474) Diverticulitis (K57.92) Active confirmed Problem Family History of Cancer of Colon (Situation) (479917884) Family history of colon cancer (Z80.0) Active confirmed Problem Diverticulitis of colon (060152183) Acute diverticulitis (K57.92) Active confirmed Problem Gastroesophageal reflux disease (682276060) GERD without esophagitis (K21.9) Active confirmed Problem Essential hypertension (67322871) Hypertension, unspecified type (I10) Active confirmed Problem Abdominal bloating (finding) (486047204) Gas bloat syndrome (K92.89) Active confirmed Vital Signs Temperature 98.7 degrees Fahrenheit 05/13/2025 Blood pressure diastolic 01 mm Hg 05/13/2025 Height 65 in 05/13/2025 Blood pressure systolic 001 mm Hg 05/13/2025 Weight 200.6 lbs 05/13/2025 BMI 33.38 kg/m2 05/13/2025 Encounters Encounter Location Date Provider Diagnosis [facility] [address] [place] [phone] 11/12/2024 Raphael Powell Jr Generalized abdominal pain R10.84 [facility] [address] [place] [phone] 05/13/2025 Raphael Powell Jr GERD without esophagitis K21.9 ; Family history of colon cancer Z80.0 and Diverticulitis of large intestine without perforation or abscess without bleeding K57.32 [facility] [address] [place] [phone] 01/06/2025 Raphael Powell Jr [facility] [address] [place] [phone] 05/13/2025 Raphael Powell Jr Assessments Encounter Date Diagnosis [...] and we will get his records from [facility] where he had sigmoid resection. 05/13/2025 [...] Name:Raphael yi , 05/17/2026 09:20:00 AM, [address] [facility], [address], [place], [address], Insurance Providers Payer Name Payer Address Payer Phone Subscriber Number Group Number Insured Name Patient Relationship to Insured Coverage Start Date Coverage End Date [employer]ICA[employer] [email or web address] [address] [place] [address] [id number] REYNALDO SOARES Self - patient is the [...]
--- OUTSIDE RECORDS SUMMARY | 2025-10-06 11:28 | XMS_ITS | Encounter Summary ---
Author Organization [employer] Address 75 [facility] 7t [place] [address] Care Team Providers Care Prizer Hand Name Role Phone Milana Mata DO Primary Care Provider + [phone] Reason for Visit * Reason Comments Med Refill Encounter Details Date Type Department Care Team ([facility] st Contact Info) Description 09/04/2024 Refill [facility] [address] [place], [place] [phone] Sandra De Jesus FNP [address] [place] [address] Allergic rhinitis due to other allergic trigger, [...] Description 10/28/2025 10:00 AM EST Clinical Support [facility] MEDICINE [address] [place] [address] Stacia Mcfarland, RAN 12/28/2025 11:00 AM EDT Office Visit [facility] OPTOMETRY [address] [place] [address] Nancy Jesus, OD 230 [place] [address] documented as of this encounter Visit Diagnoses Diagnosis Allergic rhinitis due to other allergic trigger, unspecified seasonality documented in this encounter Additional Health Concerns Assessment Noted Time PHQ-9 Depression Total Score: 8 11/15/19 9:20 AM EST documented as of this encounter Care Teams Prizer Hand Relationship Specialty Start Date End Date Milana Mata DO [address] [place] [address] PCP - General Family Medicine 07/02/24 documented as of this encounter
== END 2025-10-06 10:14 | disposition home or self-care (01) ==
LOC: HO.HCS 09:41
PROVIDERS: PCP Family Medicine; Visit Provider Internal Medicine Cardiovascular Disease
DX: R00.2 Palpitations (principal); R07.89 Other chest pain
CPT/HCPCS: 93010; 99214

== ENCOUNTER → 2025-10-06 09:41 | Outpatient (BNVA) | payer MEDICAID, SELFPAY | PROVIDERS: PCP Family Medicine; Visit Provider Internal Medicine Cardiovascular Disease | DX: R00.2 Palpitations (principal); R07.89 Other chest pain | CPT/HCPCS: 93005; 99212 ==

== ENCOUNTER → 2025-10-07 07:57 | Outpatient (REF) | payer MEDICAID, SELFPAY ==
--- OUTSIDE RECORDS SUMMARY | 2024-04-14 05:20 | XMS_ITS ---
Author Organization [facility] Address [address] [place] [address] Care Team Providers Care Tool Analyst Name Role Phone Adolfo Vivar, Milana Primary Care Provider Fabiola vailaRaphael Esparza Jr Unavailable [phone] REASON FOR VISIT Patient presents today for an OFFICE VISIT F/U HX OF DIVERTICULITIS Encounters Encounter Location Date Provider Diagnosis [facility] [address] [place] [address] 04/14/2024 Raphael Powell Jr Plan Of Treatment Next Appt Details Provider Name:Raphael iy Jr, 05/17/2026 09:20:00 AM, [address] [place] [address], [address], [place], [address], Progress Notes * FANY ORALDOB:1970 (55 yo M)Acc No.[id number]:04/14/2024 Progress Notes Patient: ORAL VALDOVINOS Provider: Jaye Powell MD :1970 A ge:54 Y S ex:Male Date:04/14/2024 Address:[address] [place] [address] [address], [id number] Pcp:Milana Mata M.D. Subjective: * Chief Complaints: * Any patel presents today for an OFFICE VISIT F/U HX OF DIVERTICULITIS * The named appointment provid er may or may not be the originator of this progress note, and it is not deemed complete until electronically signed by the appointment provider. Sign off status: Pending * Provider: Jaye Powell MD Date: 0 04/14/2024 Generated for Phil walter/Filippo/Ygitting on: 1 12/08/2024 08:02 AM EST
--- OUTSIDE RECORDS SUMMARY | 2024-07-21 04:40 | XMS_ITS ---
Author Organization [facility] Address [address] [place] [address] Care Team Providers Care Software Licensing Specialist Name Role Phone Adolfo Vivar, Milana Primary Care Provider Fabiola gilmerilaRaphael Esparza Jr Unavailable [phone] REASON FOR VISIT Patient presents today for diverticulitis Encounters Encounter Location Date Provider Diagnosis [facility] [address] [place] [address] 07/21/2024 Raphael Powell Jr Plan Of Treatment Next Appt Details Provider Name:Raphael yi Jr, 05/17/2026 09:20:00 AM, [address], [address], [place], [address], Progress Notes * ORAL SOARESDOB:1970 (55 yo M)Acc No.[id number]:07/21/2024 Progress Notes Patient: ORAL VALDOVINOS Provider: Jaye Powell MD :1970 A ge:54 Y S ex:Male Date:07/21/2024 Address:[address] [place] [address] [address], [place] Pcp:Milana Mata M.D. Subjective: * Chief Complaints: * P atient presents today for diverticulitis Billing Information: * Procedure Codes: * The named appointment provid er may or may not be the originator of this progress note, and it is not deemed complete until electronically signed by the appointment provider. Sign off status: Pending * Provider: Jaye Powell MD Date: 0 07/21/2024 Generated for Phil walter/Filippo/Paolo on: 1 12/08/2024 08:02 AM EST
--- NOTE | 2025-10-07 08:00 | CA_ITS ---
Acquisition Time: 2025-10-07 08:16:12 Total Exercise Time: 00:06:30 Test Indications: Palpitations Medications: SEE H&P Protocol: FERNANDA Max HR: 148 BPM 90% of Pred: 164 BPM Max BP: 152/70 mmHG Max Work Load: 7.7 METS Exercise stress test with exercise 6 mins 30 secs of Fernanda Protocol, achieving 90% MPHR, with reports of 3/10 mid chest pressure at baseline that went up to 7 with exercise, without any arrythmias, with normotensive response to exercise. without any EKG changes meeting criteria for ischemia. In recovery, chest pressure improved and pt feeling back to baseline. Will order a stress echo for further eval. Test reviewed with Dr. Cabrera. Referred By: Joby Yan Electronically Signed By: Juwan Hernandez
--- OUTSIDE RECORDS SUMMARY | 2025-10-07 08:01 | XMS_ITS | Encounter Summary ---
Author Organization [employer] Address [address] [facility] 7t [place] [address] Care Team Providers Care Manager Unix Name Role Phone Sandra De Jesus Primary Care Provider + Name, Daniel العراقي Primary Care Provider [phone] Milana Mata DO Primary Care Provider + [phone] Encounter Details Date Type Department Care Team (Late st Contact Info) Description 02/05/2024 Telephone [facility] [address] [place] [address] Sandra De Jesus FNP [address] [place] [address] Social History Tobacco Use Types Packs/Day Years [...] Description 10/28/2025 10:00 AM EST Clinical Support [facility] 230 [place] [address] Stacia Mcfarland RN 12/28/2025 11:00 AM EDT Office Visit [facility] [address] [place] [address] Edin, Nancy, OD 230 [place] [address] documented as of this encounter Visit Diagnoses Not on filedocumented in this encounter Additional Health Concerns Assessment Noted Time PHQ-9 Depression Total Score: 8 11/15/19 24 9:20 AM EST documented as of this encounter Care Teams Manager Unix Relationship Specialty Start Date End Date Sandra De Jesus FNP [address] [place] [address] PCP - General Family Medicine 07/06/23 06/23/24 Daniel Krause MD [address] [place] [address] PCP - General Internal Medicine 06/24/24 07/01/24 Milana Mata DO [address] [place] [address] PCP - General Family Medicine 07/02/24 documented as of this encounter
--- OUTSIDE RECORDS SUMMARY | 2025-10-07 08:02 | XMS_ITS | Clinical Summary ---
Author Organization [facility] Address [id number] [place] [address] Phone Care Team Providers Care Band Saw Operator Name Role Phone Christiana Campbell MD Primary [...] EDT) SODIUM 140 133 - 146 mmol/L [facility] CHLORIDE 102 96 - 108 mmol/L [facility] POTASSIUM 4.4 3.3 - 5.1 mmol/L [facility] CO2 25 21 - 35 mmol/L [facility] BUN 19 6 - 19 mg/dL [facility] CREATININE 1.00 0.5 - 1.5 mg/dL [facility] GLUCOSE 146(H) 70 - 99 mg/dL [facility] CALCIUM 8.9 8.4 - 10.3 mg/dL [facility] EGFR 89 >59 mL/min/1.7 3m2 [facility] Comment:Estimated glomerular filtration rate calculated using the CKD-EPI refit equation. ANION GAP 17 10 - 20 mmol/L [facility] Blood 02/14/2023 5:33 AM EDT 02/14/2023 5:52 AM EDT us Tierra Pollock MD LAB BLOOD BKR ORDERABLES Fin al Result [address] [address] from Last 3 Months or Most Recently Relevant to Health Maintenance Insurance C3 A[employer] [place] [address] [address] C3 A[employer] C3 ACO Advance Directives For more information, please contact: [phone] (9AM - 5PM Ann/[facility], Sunday-Sunday) * Full Code (Latest Code [...] Code Status Confirmed With: Patient Care Teams Band Saw Operator Relationship Specialty Start Date End Date Christiana Campbell MD PCP - General Internal Medicine 09/27/22 Additional Source Comments The information contained in this document represents components of the legal health record. It is not the complete legal health record.[facility]
--- OUTSIDE RECORDS SUMMARY | 2025-10-07 08:02 | XMS_ITS | Encounter Summary ---
Author Organization [employer] Address [address] [facility] 7t [place] [address] Care Team Providers Care Supervisor Prop Making Name Role Phone Sandra De Jesus Primary Care Provider [phone] Name, Daniel العراقي Primary Care Provider [phone] Milana Mata DO Primary Care Provider + [phone] Reason for Visit * Reason Onset Date Comments [employer] BU[employer]ER Reevaluation 05/06/2024 Encounter Details Date Type Department Care Team (Late st Contact Info) Description 05/06/2024 Telephone [facility] MEDICINE [address] [place] [address] Sandra De Jesus FNP [address] [place], [place] [phone] [employer] Reevaluation Social History Tobacco Use Types Packs/Day [...] program, Isidra advised to fax form to [facility], provider will review it and will contact agency if needed anything. Isidra verbally greed and understood. * Telephone Encounter - Alexys Orozco RN - 05/13/2024 9:09 AM EDT T/C x 2 am to [phone] for isidra for below message, No answer. [employer] sent message to call back on [phone]. T/C to lissett to inform that [facility] is trying to call [employer] company for below message , but not able to contact them. LVM to call back on [phone]. Lissett states she is going to call them, Lissett also informed if [employer] company / [employer] is missing any sign please fax documents on [phone] to get sign from PCP. Lissett states she is going to call to company. * Telephone Encounter - Lorena Waldrop - 05/12/2024 4:06 PM EDT Tc from pt spouse regarding message below. * Telephone Encounter - Alexys Orozco RN - 05/12/2024 10:05 AM EDT T/C to [phone] for isidra for below message, No answer. [employer] sent message to call back on [phone]. * Telephone Encounter - Humberto Arauz - 05/12/2024 9:52 AM EDT Tc from [facility] requesting a status on PCP order form. Please see notes. Please contact at [phone] ( ask for isidra ) * Telephone Encounter - Brenda Gifford - 05/09/2024 12:35 PM EDT Tc from pt and Lissett requesting a call back in regards below message. Please contact at [phone] * Telephone Encounter - Alexys Orozco RN - 05/06/2024 4:21 PM EDT T/C to pt. For below message, pt. 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 States he is having upcoming surgery and needs LOG BUYER services. RN cannotsee any notes that says [...] Support [facility]INE [address] [place] [address] Stacia Mcfarland, RAN 12/28/2025 11:00 AM EDT Office Visit [facility] OPTOMETRY [address] [place] [address] Nancy Jesus, OD 230 [place] [address] documented as of this encounter Visit Diagnoses Not on filedocumented in this encounter Additional Health Concerns Assessment Noted Time PHQ-9 Depression Total Score: 8 11/15/19 24 9:20 AM EST documented as of this encounter Care Teams Supervisor Prop Making Relationship Specialty Start Date End Date Sandra De Jesus FNP [address] [place] [address] PCP - General Family Medicine 07/06/23 06/23/24 Daniel Krause MD 230 [place] [address] PCP - General Internal Medicine 06/24/24 07/01/24 Milana Mata DO [address] [place] [address] PCP - General Family Medicine 07/02/24 documented as of this encounter
--- OUTSIDE RECORDS SUMMARY | 2025-10-07 08:02 | XMS_ITS | Encounter Summary ---
Author Organization [employer] Address 75 [facility] 7t [place] [address] Care Team Providers Care Cone Marker Name Role Phone Sandra De Jesus Primary Care Provider + Name, Daniel العراقي Primary Care Provider [phone] Milana Mata DO Primary Care Provider [phone] Reason for Visit * Reason Comments Med Refill Encounter Details Date Type Department Care Team (Late st Contact Info) Description 10/21/2023 Refill [facility] MEDICINE [address] [place] [address] Sandra De Jesus FNP [address] [place] [address] Social History Tobacco Use Types Packs/Day Years [...] Description 10/28/2025 10:00 AM EST Clinical Support [facility] MEDICINE [address] [place] [address] Stacia Mcfarland RN 12/28/2025 11:00 AM EDT Office Visit [facility] OPTOMETRY [address] [place] [address] Edin, Nancy, OD [address] [place] [address] documented as of this encounter Visit Diagnoses Not on filedocumented in this encounter Additional Health Concerns Assessment Noted Time PHQ-9 Depression Total Score: 12 023 2:23 PM EDT documented as of this encounter Care Teams Cone Marker Relationship Specialty Start Date End Date Sandra De Jesus FNP [address] [place] [address] PCP - General Family Medicine 07/06/23 06/23/24 Daniel Krause MD [address] [place] [address] PCP - General Internal Medicine 06/24/24 07/01/24 Milana Mata DO [address] [place] [address] PCP - General Family Medicine 07/02/24 documented as of this encounter
--- OUTSIDE RECORDS SUMMARY | 2025-10-07 08:02 | XMS_ITS | Encounter Summary ---
Author Organization [email or web address] Address 75 [facility] 7t [place] [address] Care Team Providers Care Bait Painter Name Role Phone Milana Mata DO Primary Care Provider + [phone] Reason for Visit * Reason Comments Med Refill Encounter Details Date Type Department Care Team ([facility] st Contact Info) Description 09/04/2024 Refill [facility] [address] [place], [place] [phone] Sandra De Jesus FNP [address] [place] [address] Allergic rhinitis due to other allergic trigger, [...] Description 10/28/2025 10:00 AM EST Clinical Support [facility] MEDICINE [address] [place] [address] Stacia Mcfarland, RAN 12/28/2025 11:00 AM EDT Office Visit [facility] OPTOMETRY [address] [place] [address] Nancy Jesus, OD 230 [place] [address] documented as of this encounter Visit Diagnoses Diagnosis Allergic rhinitis due to other allergic trigger, unspecified seasonality documented in this encounter Additional Health Concerns Assessment Noted Time PHQ-9 Depression Total Score: 8 11/15/19 9:20 AM EST documented as of this encounter Care Teams Bait Painter Relationship Specialty Start Date End Date Milana Mata DO 230 [place] [address] PCP - General Family Medicine 07/02/24 documented as of this encounter
--- OUTSIDE RECORDS SUMMARY | 2025-10-07 08:02 | XMS_ITS | Encounter Summary ---
Author Organization [employer] Address 75 [facility] 7t [place] [address] Care Team Providers Care Product Development Specialist Name Role Phone LizaJuliazelalem VOGEL Primary Care Provider + Jimi, Daniel العراقي Primary Care Provider [phone] Milana Mata DO Primary Care Provider + Reason for Visit * Reason Comments Med Refill Encounter Details Date Type Department Care Team (Late st Contact Info) Description 09/30/2023 Refill [facility] MEDICINE [address] [place], [place] [phone] Campbell Salguero AGNP Social History Tobacco Use [...] Description 10/28/2025 10:00 AM EST Clinical Support [facility] MEDICINE [address] [place] [address] Stacia Mcfarland, RAN 12/28/2025 11:00 AM EDT Office Visit [facility] OPTOMETRY [address] [place] [address] Edin, Nancy, OD 230 [place] [address] documented as of this encounter Visit Diagnoses Not on filedocumented in this encounter Additional Health Concerns Assessment Noted Time PHQ-9 Depression Total Score: 12 023 2:23 PM EDT documented as of this encounter Care Teams Product Development Specialist Relationship Specialty Start Date End Date Sandra De Jesus FNP [address] [place] [address] PCP - General Family Medicine 07/06/23 06/23/24 Daniel Krause MD [address] [place] [address] PCP - General Internal Medicine 06/24/24 07/01/24 Milana Mata DO [address] [place] [address] PCP - General Family Medicine 07/02/24 documented as of this encounter
--- OUTSIDE RECORDS SUMMARY | 2025-10-07 08:02 | XMS_ITS | Encounter Summary ---
Author Organization [employer] Address [address] [facility] [address] [place] [address] Care Team Providers Care Quality Assurance Associate Name Role Phone Sandra De Jesus Primary Care Provider + Name, Daniel العراقي Primary Care Provider [phone] Milana Mata DO Primary Care Provider + Encounter Details Date Type Department Care Team (Late st Contact Info) Description 09/03/2023 Abstract [facility] MEDICINE [address] [place] [address] Iram Resendiz Social History Tobacco Use Types [...] Description 10/28/2025 10:00 AM EST Clinical Support [facility] MEDICINE [address] [place] [address] Stacia Mcfarland RN 12/28/2025 11:00 AM EDT Office Visit [facility] OPTOMETRY [address] [place] [address] Edin, Nancy, OD [address] [place] [address] documented as of this encounter Visit Diagnoses Not on filedocumented in this encounter Additional Health Concerns Assessment Noted Time PHQ-9 Depression Total Score: 12 023 2:23 PM EDT documented as of this encounter Care Teams Quality Assurance Associate Relationship Specialty Start Date End Date Sandra De Jesus FNP [address] [place] [address] PCP - General Family Medicine 07/06/23 06/23/24 Daniel Krause MD [address] [place] [address] PCP - General Internal Medicine 06/24/24 07/01/24 Milana Mata DO [address] [place] [address] PCP - General Family Medicine 07/02/24 documented as of this encounter
--- OUTSIDE RECORDS SUMMARY | 2025-10-07 08:02 | XMS_ITS | Encounter Summary ---
Author Organization [employer] Address 75 [facility] 7t [place] [address] Care Team Providers Care Nursing Director Name Role Phone Milana Mata DO Primary Care Provider + [phone] Encounter Details Date Type Department Care Team (Late st Contact Info) Description 05/20/2025 Orders Only [facility] MEDICINE 230 [place], [place] [phone] Milana Mata DO 230 [place], [place] [phone] Social History Tobacco Use Types Packs/Day Years [...] Description 10/28/2025 10:00 AM EST Clinical Support [facility] MEDICINE [address] [place] [address] Stacia Mcfarland, RN 12/28/2025 11:00 AM EDT Office Visit [facility] OPTOMETRY [address] [place] [address] Edin, Nancy, OD 230 [place] [address] documented as of this encounter Visit Diagnoses Not on filedocumented in this encounter Additional Health Concerns Assessment Noted Time PHQ-9 Depression Total Score: 0 01/01/20 25 10:51 AM EDT documented as of this encounter Care Teams Nursing Director Relationship Specialty Start Date End Date Milana Mata DO 230 [place] [address] PCP - General Family Medicine 07/02/24 documented as of this encounter
--- OUTSIDE RECORDS SUMMARY | 2025-10-07 08:02 | XMS_ITS | Encounter Summary ---
Author Organization [employer] Address 75 [facility] 7t [place] [address] Care Team Providers Care Lithographic Artist Name Role Phone Sandra De Jesus Primary Care Provider + Name, Daniel العراقي Primary Care Provider [phone] Milana Mata DO Primary Care Provider [phone] Encounter Details Date Type Department Care Team (Late st Contact Info) Description 05/23/2024 Orders Only [facility] [address] [place], [place] [phone] Sandra De Jesus FNP [address] [place] [address] Cervical neck pain with evidence of disc [...] Description 10/28/2025 10:00 AM EST Clinical Support [facility] MEDICINE [address] [place] [address] Stacia Mcfarland RN 12/28/2025 11:00 AM EDT Office Visit [facility] OPTOMETRY [address] [place] [address] Nancy Jesus, OD 230 [place] [address] documented as of this encounter Visit Diagnoses Diagnosis Cervical neck pain with evidence of disc disease- Primary Other and unspecified disc disorder of cervical region documented in this encounter Additional Health Concerns Assessment Noted Time PHQ-9 Depression Total Score: 8 11/15/19 24 9:20 AM EST documented as of this encounter Care Teams Lithographic Artist Relationship Specialty Start Date End Date Sandra De Jesus FNP 230 [place] [address] PCP - General Family Medicine 07/06/23 06/23/24 Daniel Krause MD 230 [place] [address] PCP - General Internal Medicine 06/24/24 07/01/24 Milana Mata DO [address] [place] [address] PCP - General Family Medicine 07/02/24 documented as of this encounter
--- OUTSIDE RECORDS SUMMARY | 2025-10-07 08:02 | XMS_ITS | Encounter Summary ---
Author Organization [employer] Address 75 [facility] 7t [place] [address] Care Team Providers Care High Risk Ob Name Role Phone Sandra De Jesus Primary Care Provider + Jimi, Daniel العراقي Primary Care Provider [phone] Milana Mata DO Primary Care Provider [phone] Reason for Visit * Reason Comments Med Refill Encounter Details Date Type Department Care Team ([facility] st Contact Info) Description 08/01/2023 Refill [facility] 230 [place] [address] Ryan Nation MD [address] [place] [address] Social History Tobacco Use Types Packs/Day Years [...] Description 10/28/2025 10:00 AM EST Clinical Support [facility] [address] [place] [address] Stacia Mcfarland RN 12/28/2025 11:00 AM EDT Office Visit [facility] OPTOMETRY [address] [place] [address] Edin, Nancy, OD 230 [place] [address] documented as of this encounter Visit Diagnoses Not on filedocumented in this encounter Additional Health Concerns Assessment Noted Time PHQ-9 Depression Total Score: 12 023 2:23 PM EDT documented as of this encounter Care Teams High Risk Ob Relationship Specialty Start Date End Date Sandra De Jesus FNP [address] [place] [address] PCP - General Family Medicine 07/06/23 06/23/24 Daniel Krause MD 230 [place] [address] PCP - General Internal Medicine 06/24/24 07/01/24 Milana Mata DO 230 [place] [address] PCP - General Family Medicine 07/02/24 documented as of this encounter
--- OUTSIDE RECORDS SUMMARY | 2025-10-07 08:02 | XMS_ITS | Encounter Summary ---
Author Organization [facility] Address [address] [address] Phone Care Team Providers Care Rough Rice Tender Name Role Phone Christiana Campbell MD Primary Care Provider Caroline magaña Encounter Details Date Type Department Care Team (Late st Contact Info) Description 02/13/2023 Procedure Pass OR Admitting Dept - [facility] Department [address] [place] [address] Social History Tobacco Use Types Packs/Day Years [...] 4:19 PM EDT Iliana Olguin RN * [place] Suicide Severity Rating Scale (Screener/Recent Self-Report) Question [...] on filedocumented in this encounter Care Teams Rough Rice Tender Relationship Specialty Start Date End Date Christiana Campbell MD PCP - General Internal Medicine 09/27/22 documented as of this encounter Additional Source Comments The information contained in this document represents components of the legal health record. It is not the complete legal health record.[facility]
--- OUTSIDE RECORDS SUMMARY | 2025-10-07 08:02 | XMS_ITS | Encounter Summary ---
Author Organization [facility] Address [address] [address] Phone Care Team Providers Care Security And Compliance Project Manager Name Role Phone Pcp, Unknown Primary Care Provider Christiana Amador MD Primary Care Provider Caroline magaña Encounter Details Date Type Department Care Team (Late st Contact Info) Description 09/19/2022 Procedure Pass [facility], Ct Scan - [address] [address] Social History Tobacco Use Types Packs/Day Years [...] 09/19/2022 7:36 PM Usman Trejo, RN * [place] Suicide Severity Rating Scale (Screener/Recent Self-Report) Question [...] on filedocumented in this encounter Care Teams Security And Compliance Project Manager Relationship Specialty Start Date End Date Pcp, Unknown PCP - General 09/19/22 09/26/22 Christiana Campbell MD PCP - General Internal Medicine 09/27/22 documented as of this encounter Additional Source Comments The information contained in this document represents components of the legal health record. It is not the complete legal health record.[facility]
--- OUTSIDE RECORDS SUMMARY | 2025-10-07 08:03 | XMS_ITS | Patient Health Record ---
Author Organization [facility] Address [address] [place] [address] Care Team Providers Care Bead Machine Operator Name Role Phone Milana Mata M.D. Primary Care Provider Raphael Cortes Jr Unavailable [phone] Allergies Allergen (clinical drug ingredient) Drug/Non Drug Allergy documented on EMR Reaction Allergy Type Onset Date Status Penicillin Unknown Drug Allergy Active Results Component Value Reference Range Flag Notes Lipase Reviewed date:01/06/2025 01:45:19 PM Interpretation: Performing Lab:[facility], [address] [place] [phone] Notes/Report: Lipase 20 8-78 U/L N Creatinine Reviewed date:01/06/2025 01:45:24 PM Interpretation: Performing Lab:[facility], [address] [place] [phone] Notes/Report: Creatinine 0.78 0.5-1.4 mg/dL N Estimated Glomerular Filt Rate > 60 Chronic Kidney Disease: Estimated GFR < 60 mL/min/1.73m2 Severe Kidney Disease: Estimated GFR < 15 mL/min/1.73m2 Blood Urea Nitrogen Reviewed date:01/06/2025 01:45:29 PM Interpretation: Performing Lab:[facility], [address] [place] [phone] Notes/Report: Blood Urea Nitrogen 13 9-16 mg/dL N Liver Panel Reviewed date:01/06/2025 01:45:32 PM Interpretation: Performing Lab:[facility], [address] [place] [phone] Notes/Report: Bilirubin Total 0.3 0.0-1.0 mg/dL N Bilirubin Direct 0.1 0.0-0.5 mg/dL N Aspartate Amino Transferase 24 5-37 U/L N Alanine Aminotransferase 20 0-40 U/L N Total Protein 8.1 6.5-8.0 g/dL H Albumin Level 4.3 3.5-5.0 g/dL N Alkaline Phosphatase 99 39-117 U/L N Complete Blood Count no Diff Reviewed date:01/06/2025 01:45:38 PM Interpretation: Performing Lab:[facility], [address] [place] [phone] Notes/Report: White Blood Count 6.3 4.8-10.8 X10*3/uL [...] NRBC Abs Auto 0.000 0.0-0.012 X10*3/uL N CT abdomen pelvis w con Reviewed date:01/06/2025 01:45:13 PM Interpretation: Performing Lab: Notes/Report: [address] [address] [address] Scan Report Signed Patient: Reynaldo Osuna MR#: [id number] : 1970 Acct:[id number] Age/Sex: 54 / M ADM Date: 01/06/25 Loc: HO.CT Attending Dr: Raphael Powell MD Ordering Physician: Raphael Powell MD Date of Service: 01/06/25 Procedure(s): CT abdomen pelvis w IV con Accession Number(s): [id number] cc: Raphael Powell MD; Milana Mata DO Report Number: [id number]: Total DLP = 565.00 mGy-cm EXAMINATION: CT [...] 01/06/25 1134 DD/ 1004 TD/TT: 01/06/25 1035 Optimization Specialist: Reason For Referral Referring Provider First Name Milana Referring Provider Last Name Adolfo Referred Organization [facility] Referred Provider Raphael Powell Jr Referred Address [address] [place] [address],[place] [address],[place], [place],[address], Referred Provider Specialty Gastroentero logy General Notes Katherine Kraus 2024 02:11:14 PM >requested [facility] referral from [facility] [phone] Referral Priority Routine Medications Medication SIG (Take, [...] Status Risk Notes Problem Diverticulitis of colon (702586803) Diverticulitis of large intestine without perforation or abscess without bleeding (K57.32) Active confirmed Problem Generalized abdominal pain (884759254) Generalized abdominal pain (R10.84) Active confirmed Problem Diverticulitis (80801738) Diverticulitis (K57.92) Active confirmed Problem Family History of Cancer of Colon (Situation) (250625700) Family history of colon cancer (Z80.0) Active confirmed Problem Diverticulitis of colon (499262674) Acute diverticulitis (K57.92) Active confirmed Problem Gastroesophageal reflux disease (248739035) GERD without esophagitis (K21.9) Active confirmed Problem Essential hypertension (56236003) Hypertension, unspecified type (I10) Active confirmed Problem Abdominal bloating (finding) (165715971) Gas bloat syndrome (K92.89) Active confirmed Vital Signs Temperature 98.7 degrees Fahrenheit 05/13/2025 Blood pressure diastolic 01 mm Hg 05/13/2025 Height 65 in 05/13/2025 Blood pressure systolic 001 mm Hg 05/13/2025 Weight 200.6 lbs 05/13/2025 BMI 33.38 kg/m2 05/13/2025 Encounters Encounter Location Date Provider Diagnosis [facility] [address] [place] [phone] 11/12/2024 Raphael Powell Jr Generalized abdominal pain R10.84 [facility] [address] [place] [phone] 05/13/2025 Raphael Powell Jr GERD without esophagitis K21.9 ; Family history of colon cancer Z80.0 and Diverticulitis of large intestine without perforation or abscess without bleeding K57.32 [facility] [address] [place] [phone] 01/06/2025 Raphael Powell Jr [facility] [address] [place] [phone] 05/13/2025 Raphael Powell Jr Assessments Encounter Date [...] and we will get his records from [facility] where he had sigmoid resection. 05/13/2025 [...] Name:Raphael yi , 05/17/2026 09:20:00 AM, [address] [facility], [address], [place], [address], Insurance Providers Payer Name Payer Address Payer Phone Subscriber Number Group Number Insured Name Patient Relationship to Insured Coverage Start Date Coverage End Date [employer] [facility] [address] [place] [phone] [id number] REYNALDO SOARES Self - patient is the [...]
--- OUTSIDE RECORDS SUMMARY | 2025-10-07 08:03 | XMS_ITS | Clinical Summary ---
Author Organization [facility] [employer] Address [address] [facility] [address] [place] [address] Care Team Providers Care Plastics Supervisor Name Role Phone Milana Mata DO Primary Care Provider [phone] Allergies Active Allergy Reactions Criticality Noted Date Comments [place]-Containing Products Anaphylaxis High 04/20/2023 Fruit Extracts 10/10/2023 Pt states he is allergic to any fruit that has seeds Penicillins Rash High 10/12/2010 Dawson Oil 08/21/2024 Medications OXcarbazepine (Trileptal) 300 MG [...] 025 Active Blood Glucose Monitoring Suppl (FreeStyle [place] Lite) w/Device kit Use to test blood [...] disease, transverse colon. -Pt was seen at [facility] on 07/06/2025 for similar complaint . [place] possible pain from costochondritis, labs done 07/07/2025 [...] there were small polyps. Eye exam: [place] [facility] [place]. Dental home: [place] [facility] [place] Allergies [...] was prudent to send him to an trash man to get a comprehensive and accurate list [...] Type Department Care Team Description 09/24/2025 Refill [facility] [address] [place] [address] Milana Mata DO 09/07/2025 10:00 AM EST Immunization [facility] [place] [address] Norma Cleary, RAN Encounter for vaccination; Encounter for immunization 09/07/2025 Travel 08/24/2025 Refill [facility] [place] [address] Milana Mata DO 08/14/2025 Refill [facility] [place] [place] [place] [address] Milana Mata DO 08/10/2025 10:30 AM EDT Office Visit [facility] [place] [place] [address] Milana Mata DO Type 2 diabetes mellitus without complication, without long-term current use of insulin (HCC) (Primary Dx); Essential hypertension; Other hyperlipidemia; Major depression, recurrent, chronic (CMS/HCC); Seizure disorder (CMS/HCC) (HCC); Clotting disorder; Obstructive sleep apnea; Chronic gastroesophageal reflux disease; Seasonal allergic rhinitis, unspecified trigger; Chronic neck and back pain; Polyarthralgia; Lung nodule; Healthcare maintenance 08/10/2025 Travel 07/31/2025 Telephone [facility] [place] [place] [place] [address] Milana Mata DO Chart Prep 07/29/2025 Telephone [facility] [place] [address] Milana Mata DO Medication Question 07/28/2025 10:00 AM EDT Clinical Support [facility] [place] [place] [address] Stacia Mcfarland RN Long-term current use of opiate analgesic (Primary Dx) 07/28/2025 Travel 07/10/2025 Results Follow-Up [facility] [place] [place] [address] Mona Chan MD D Dimer High Sensitivity, CT Abdomen w/ Contrast 07/10/2025 Orders Only GENERIC EXTERNAL DATA DEPARTMENT Provider, Generic External Data 07/10/2025 Refill [facility] [address] [place] [address] Milana Mata DO Chronic neck and back pain 07/09/2025 11:15 AM EDT Office Visit [facility] [address] [place] [address] oMna Chan MD Mid back pain on right side (Primary Dx); Pleuritic pain; Right flank pain; Essential hypertension 07/09/2025 Travel 07/09/2025 Telephone [facility] [address] [place] [address] Milana Mata DO Appointment Request 07/08/2025 Results Follow-Up [facility] [address] [place] [address] Willy Rock MD CBC auto differential, Comprehensive Metabolic Panel, Urinalysis Complete, XR Chest 2 Views from Last 3 Months Immunizations Immunization Administration [...] Description 10/28/2025 10:00 AM EST Clinical Support [facility] [address] [place], [place] [phone] Stacia Mcfarland, RAN 12/28/2025 11:00 AM EDT Office Visit [facility] [address] [place], [place] [phone] EdinNancy collins, OD [address] [place] [address] Health Maintenance Due Date Last Done Comments [...] long-term current use of insulin (HCC) Polyarthralgia LIPID PANEL, STANDARD Routine 08/11/2025 9:14 [...] back pain on right side Pleuritic pain BITEWING - SINGLE RADIOGRAPHIC IMAGE Routine 08/21/2024 11:30 AM EDT Symptomatic periapical periodontitis FECAL GLOBIN BY IMMUNOCHEMISTRY Routine 11/15/2023 9:03 AM EST Dark stools HM COLONOSCOPY Routine 04/19/2023 2:32 PM EDT from Last 3 Months or Most Recently Relevant to Health Maintenance Results * Vitamin D, 25-Hydroxy, Total, Immunoassay (08/11/2025 9:14 AM EDT) Vitamin D 25-OH Total 41.7 >30 ng/mL [facility] Comment: Health Based Reference Values*< 20 ng/mL [id number] ng/mL Insufficient> 30 ng/mL Sufficient*Holick MF. N Engl J Med. 2007;357:266-280There is no [...] DO LAB BLOOD ORDERABLES Final R esult [facility] [address] [place] [phone] * Vitamin B12 (Cobalamin) and Folate Panel, Serum (08/11/2025 9:14 AM EDT) Vitamin B12 336 200 - 900 pg/mL [facility] Comment:NORMAL 200-900 PG/ML INDETERMINATE 160-199 PG/ML DEFICIENT < 160 PG/ML Folate 6.7 > or = 4.0 ng/mL [facility] Comment:Reference Values:> o r = 4.0 ng/mL< 4.0 ng/mL suggests folate deficiency Methotrexate, aminopterin and folinic acid(leucovorin) are chemotherapeutic agents whose molecularstructures are similar to folate; therefore, the Architectfolate assay cannot be used for patients using these drugs. Blood 08/11/2025 9:14 AM EDT 08/11/2025 9:14 AM EDT Milana Adolfo DO LAB BLOOD ORDERABLES Final R esult Performing Organization Address [facility] Co de Phone Number [facility] [address] [place] [phone] * Hepatitis C Antibody with Reflex to HCV, RNA, Quantitative, Real-Time PCR (08/11/2025 9:14 AM EDT) Pathologist [facility] Hepatitis C Antibody Nonreactive Nonreactive [facility] Comment:Antibodies to HCV no t detected; does not exclude early acuteHCV infection. Blood Venous blood specimen / Unknown 08/11/2025 9:14 AM EDT 08/11/2025 9:14 AM EDT us Milana Adolfo DO LAB BLOOD ORDERABLES Final R esult Performing Organization Address [facility] Co de Phone Number [facility] [address] [place] [phone] * Iron And Total Iron Binding Capacity (08/11/2025 9:14 AM EDT) [facility] Iron 63 45 - 160 mcg/dL [facility] Total Iron Binding Capacity 284 228 - 428 mcg/dL [facility] Percent Iron Saturation 22 15 - 50 % [facility] Unsaturated Iron Binding 221 ug/dL [facility] Blood Venous blood specimen / Unknown 08/11/2025 9:14 AM EDT 08/11/2025 9:14 AM EDT Milana Adolfo DO LAB BLOOD ORDERABLES Final R esult Performing Organization Address [facility] Co de Phone Number [facility] [address] [place] [phone] * Hepatitis B surface antigen, EIA (08/11/2025 9:14 AM EDT) Pathologist [facility] Hepatitis B Surface Ag Negative Negative [facility] Blood Venous blood specimen / Unknown 08/11/2025 9:14 AM EDT 08/11/2025 9:14 AM EDT Milana Adolfo DO LAB BLOOD ORDERABLES Final R esult Performing Organization Address [facility] Co de Phone Number [facility] [address] [place] [phone] * RPR (Monitor) with Reflex to??Titer (08/11/2025 9:14 AM EDT) RPR (Monitor) w/Refl Titer NON-REACTI VE NON-REACT WENDY [facility] Comment:THIS TEST WAS PERFOR MED AT:[employer] [place] [phone] VILLALPANDO MD Rapid Plasma Reagin Ab Titer TNP [facility] Blood Venous blood specimen / Unknown 08/11/2025 9:14 AM EDT 08/11/2025 9:14 AM EDT us Milana Mata DO LAB BLOOD ORDERABLES Final R esult Performing Organization Address [facility] Co de Phone Number [facility] [address] [place] [phone] * HIV-1/2 Antigen and Antibodies, Fourth Generation, with Reflexes (08/11/2025 9:14 AM EDT) HIV AB/AG Nonreactive Nonreactive [facility] Comment:HIV-1 p24 Ag and/or HIV-1/HIV-2 Ab not detected.A test result that is nonreactive does not exclude thepossibility of exposure to or infection with HIV-1 and/orHIV-2. Nonreactive results in this assay for individualswith prior exposure to HIV-1 and/or HIV-2 may be due toantigen and antibody levels that are below the limit ofdetection of this assay.The [employer] HIV Ag/Ab Combo assay result andsupplemental assay [...] Performing Organization Address City/[facility] Co de Phone Number [facility] [address] [place] [phone] * Hepatitis B Surface Antibody, Qualitative (08/11/2025 9:14 AM EDT) [facility] ~Hepatitis B Surface Antibody REACTIVE Nonreactive [facility] Comment:REACTIVE: > 11.99 mI U/mL Blood Venous blood specimen / Unknown 08/11/2025 9:14 AM EDT 08/11/2025 9:14 AM EDT Milana Mata DO LAB BLOOD ORDERABLES Final R esult Performing Organization Address [facility] de Phone Number [facility] [address] [place] [phone] * (ABNORMAL) CBC (08/11/2025 9:14 AM EDT) [facility] White Blood Count 6.5 4.8 - 10.8 X10*3/uL [facility] Red Blood Count 4.83 4.60 - 5.80 X10*6/uL [facility] Hemoglobin 12.3(L) 14.0 - 18.0 g/dl [facility] Hematocrit 39.1(L) 42.0 - 52.0 % [facility] Mean Corpuscular Volume 81.0 80.0 - 98.0 fL [facility] Mean Corpuscular Hemoglobin 25.5(L) 27.0 - 33.0 pg [facility] Mean Corpuscular HGB Conc 31.5 31.0 - 36.0 g/dl [facility] Red Cell Distribution Width 14.7 11.0 - 16.0 % [facility] Platelet Count 229 160 - 400 X10*3/uL [facility] Mean Platelet Volume 11.2 9.4 - 12.4 fL [facility] NRBC Pct Auto 0.0 0.0 - 0.2 /100WBC [facility] NRBC Abs Auto 0.000 0.0 - 0.012 X10*3/uL [facility] Blood Venous blood specimen / Unknown 08/11/2025 9:14 AM EDT 08/11/2025 9:14 AM EDT Milana Mata LAB BLOOD ORDERABLES Final R esult Performing Organization Address City/[facility]/ZIP Co de Phone Number [facility] [address] [place] [phone] * TSH (08/11/2025 9:14 AM EDT) Thyroid Stimulating Hormone 0.98 0.32 - 4.0 uIU/mL [facility] Comment:TSH 3rd Generation ( Buru Buru) Blood Venous blood specimen / Unknown 08/11/2025 9:14 AM EDT 08/11/2025 9:14 AM EDT Milana Mata DO LAB BLOOD ORDERABLES Final R esult [facility] [address] [place] [phone] * T4, Free (08/11/2025 9:14 AM EDT) Free T4 (Free Thyroxine) 0.89 0.71 - 1.85 ng/dL [facility] Blood Venous blood specimen / Unknown 08/11/2025 9:14 AM EDT 08/11/2025 9:14 AM EDT us Milana Mata DO LAB BLOOD ORDERABLES Final R esult Performing Organization Address City/[facility]/ZIP Co de Phone Number [facility] [address] [place] [phone] * Hemoglobin A1c (08/11/2025 9:14 AM EDT) Hemoglobin A1c 6.0 <6.0 % [facility] Comment:Hemoglobin A1C Refer ence Range Adults: 4.8 - 6.0 % Non diabetic: < 6.0 % Goal: < 7.0 %Additional Action Suggested: > 8.0 %Note: Hemoglobin A1c results are invalid for patients with abnormal amounts of HbF. Blood transfusions may impact the HbA1c concentration in the patient sample. Estimated Average Glucose 126 mg/dL [facility] Comment:eAG = Estimated ave rage glucose which is %A1C expressed asaverage glucose, using the formula of the F1G-HjbndljItquqfk Glucose study (ADAG), Diabetes Care, Vol.31,#8,May. 2007 Blood Venous blood specimen / Unknown 08/11/2025 9:14 AM EDT 08/11/2025 9:14 AM EDT us Milana Mata DO LAB BLOOD ORDERABLES Final R esult Performing Organization Address [facility] Co de Phone Number [facility] [address] [place] [phone] * Ferritin (08/11/2025 9:14 AM EDT) Ferritin 73 20 - 250 ng/mL [facility] Blood Venous blood specimen / Unknown 08/11/2025 9:14 AM EDT 08/11/2025 9:14 AM EDT us Milana Mata DO LAB BLOOD ORDERABLES Final R esult Performing Organization Address City/[facility]/ZIP Co de Phone Number [facility] [address] [place] [phone] * Hepatic Function Panel (08/11/2025 9:14 AM EDT) Bilirubin, Total 0.6 0.0 - 1.0 mg/dL [facility] Bilirubin, Direct 0.2 0.0 - 0.5 mg/dL [facility] Aspartate Amino Transferase 20 5 - 37 U/L [facility] Alanine Aminotransferase 24 0 - 40 U/L [facility] Total Protein 7.5 6.5 - 8.0 g/dL [facility] Albumin Level 4.5 3.5 - 5.0 g/dL [facility] Alkaline Phosphatase 106 39 - 117 U/L [facility] Blood Venous blood specimen / Unknown 08/11/2025 9:14 AM EDT 08/11/2025 9:14 AM EDT Milana Mata DO LAB BLOOD ORDERABLES Final R esult [facility] [address] [place] [phone] * Lipid Panel, Standard (08/11/2025 9:14 AM EDT) Triglycerides 65 <150 mg/dL [facility] Comment:Desirable Triglyceri de: less than 150 mg/dLBorderline High Triglyceride 150-199 mg/dLHigh Triglyceride: 200-499 mg/dLVery High Triglyceride: greater than or equal to 5OO mg/dL Cholesterol 125 <200 mg/dL [facility] Comment:Desirable Cholestero l: less than 200 mg/dLBorderline High Cholesterol: 200-239 mg/dLHigh Cholesterol: greater than 239 mg/dL LDL Cholesterol Calculated 68 <100 mg/dL [facility] Comment:Desirable LDL: less than 100 mg/dLNear Optimal/Above Optimal LDL: 110- 129 mg/dLBorderline High LDL: 130-159 mg/dLHigh LDL: 160-189 mg/dLVery High LDL: greater than or equal to 190 mg/dL HDL Cholesterol 44 >40 mg/dL [facility] Comment:Desirable HDL: great er than 40 mg/dL Note: This HDL assay may give artificially low results in patients with liver disease. Blood Venous blood specimen / Unknown 08/11/2025 9:14 AM EDT 08/11/2025 9:14 AM EDT Milana Mata LAB BLOOD ORDERABLES Final R esult Performing Organization Address [facility] Co de Phone Number [facility] [address] [place] [phone] * (ABNORMAL) Basic Metabolic Panel (08/11/2025 9:14 AM EDT) Sodium 140 135 - 145 mmol/L [facility] Potassium 3.9 3.3 - 5.1 mmol/L [facility] Chloride 104 96 - 108 mmol/L [facility] Carbon Dioxide 30(H) 22 - 29 mmol/L [facility] Anion Gap 10(L) 12 - 20 [facility] Urea Nitrogen (BUN) 13 9 - 16 mg/dL [facility] Creatinine, Serum 0.73 0.5 - 1.4 mg/dL [facility] Estimated Glomerular Filt Rate >60 [facility] Comment:Chronic Kidney Disea se: Estimated GFR < 60 mL/min/1.92j7Djpsnz Kidney Disease: Estimated GFR < 15 mL/min/1.73m2 Glucose 98 60 - 115 mg/dL [facility] Calcium 9.4 8.4 - 10.2 mg/dL [facility] Blood Venous blood specimen / Unknown 08/11/2025 9:14 AM EDT 08/11/2025 9:14 AM EDT Milana Mata DO LAB BLOOD ORDERABLES Final R esult Performing Organization Address [facility]/ZIP Co de Phone Number [facility] [address] [place] [phone] * Albumin, Random Urine W/Creatinine (08/11/2025 9:13 AM EDT) Creatinine, Urine 262.82 mg/dL [facility] Microalbumin Urine 9.0 mg/L [facility] Microalbum Creatinine Ratio Ur 3.4 <30 ug/mg cr [facility] Comment:Albumin/Creatinine R atio Reference Ranges: Normal: < 30 ug/mg creatinine Microalbuminuria: 30 - 300 ug/mg creatinineClinical Albuminuria: > 300 ug/mg creatinine Urine (Urine, Random) 08/11/2025 9:13 AM EDT 08/11/2025 9:46 AM EDT us Milana Mata DO LAB URINE ORDERABLES Final R esult Performing Organization Address City/State/[facility] Co de Phone Number [facility] [address] [place] [phone] * XR Shoulder 2+ Views Right (08/10/2025 1:20 PM EDT) Anatomical Region Laterality Modality Upper Extremities, Shoulder Right Radi ographic Imaging 08/10/2025 1:20 PM EDT Narrative 08/10/2025 1:33 PM EDT [address] [address] XRay Report Signed Patient: Reynaldo Osuna MR#: [id number] : 1970 Acct:[id number] Age/Sex: 55 / M ADM Date: 08/10/25 Loc: HO.HHCX Attending Dr: Milana Mata DO Ordering Physician: Milana Mata DO Date of Service: 08/10/25 Procedure(s): XR shoulder RT min 2V Accession Number(s): [id number] cc: Milana Mata DO Reason for Exam: [...] 08/10/25 1330 DD/ 1320 TD/TT: 08/10/25 1322 Drinking Water Technician: Procedure Note Donotuseinterpreter, Image - 08/10/2025 [place] [address] XRay Report Signed Patient: Reynaldo Osuna#: [id number] : 1970Acct:[id number] Age/Sex: 55 / MADM Date: 08/10/25 Loc: HO.HHCX Attending Dr: Milana Mata DO Ordering Physician: Milana Mata DO Date of Service: 08/10/25 Procedure(s): XR shoulder RT min 2V Accession Number(s): [id number] cc: Milana Mata DO Reason for Exam: [...] 08/10/25 1330 DD/ 1320 TD/TT: 08/10/25 1322 Drinking Water Technician: Milana Mata DO IMG XR PROCEDURES Edited Res ult - Final * XR Shoulder 2+ Views Left (08/10/2025 1:20 PM EDT) Anatomical Region Laterality Modality Upper Extremities, Shoulder Left Radi ographic Imaging 08/10/2025 1:20 PM EDT Narrative 08/10/2025 1:34 PM EDT [address] [address] XRay Report Signed Patient: Reynaldo Osuna MR#: [id number] : 1970 Acct:[id number] Age/Sex: 55 / M ADM Date: 08/10/25 Loc: .HHCX Attending Dr: Milana Mata DO Ordering Physician: Milana Mata DO Date of Service: 08/10/25 Procedure(s): XR shoulder LT min 2V Accession Number(s): [id number] cc: Milana Mata DO Reason for Exam: [...] 08/10/25 1331 DD/ 1320 TD/TT: 08/10/25 1322 Drinking Water Technician: Procedure Note Donotnohemiinterpreter, Image - 08/10/[address] [address] XRay Report Signed Patient: Reynaldo OsunaMR#: [id number] : 1970Acct:[id number] Age/Sex: 55 / MADM Date: 08/10/25 Loc: HO.HHCX Attending Dr: Milana Mata DO Ordering Physician: Milana Mata DO Date of Service: 08/10/25 Procedure(s): XR shoulder LT min 2V Accession Number(s): [id number] cc: Milana Mata DO Reason for Exam: [...] 08/10/25 1331 DD/ 1320 TD/TT: 08/10/25 1322 Drinking Water Technician: Milana Mata DO IMG XR PROCEDURES Edited Res ult - Final * XR Hand 3+ Views Right (08/10/2025 1:02 PM EDT) Anatomical Region Laterality Modality Upper Extremities, Hand Right Radiogra phic Imaging 08/10/2025 1:02 PM EDT Narrative 08/10/2025 1:32 PM EDT [facility] [address] [place] [address] XRay Report Signed Patient: Reynaldo Osuna MR#: [id number] : 1970 Acct:[id number] Age/Sex: 55 / M ADM Date: 08/10/25 Loc: JAY Attending Dr: Milana Mata DO Ordering Physician: Milana Mata DO Date of Service: 08/10/25 Procedure(s): XR hand RT min 3V Accession Number(s): [id number] cc: Milana Mata DO Reason for Exam: [...] 08/10/25 1330 DD/ 1302 TD/TT: 08/10/25 1322 Drinking Water Technician: Procedure Note Donotuseinterpreter, Image - 08/10/[address] [address] XRay Report Signed Patient: Reynaldo OsunaMR#: [id number] : 1970Acct:[id number] Age/Sex: 55 / MADM Date: 08/10/25 Loc: JAY Attending Dr: Milana Mata DO Ordering Physician: Milana Mata DO Date of Service: 08/10/25 Procedure(s): XR hand RT min 3V Accession Number(s): [id number] cc: Milana Mata DO Reason for Exam: [...] 08/10/25 1330 DD/ 1302 TD/TT: 08/10/25 1322 Drinking Water Technician: Milana Mata DO IMG XR PROCEDURES Edited Res ult - Final * XR Hand 3+ Views Left (08/10/2025 12:30 PM EDT) Anatomical Region Laterality Modality Upper Extremities, Hand Left Radiogra phic Imaging 08/10/2025 12:3 0 PM EDT Narrative 08/10/2025 1:32 PM EDT [address] [address] XRay Report Signed Patient: Reynaldo Osuna MR#: [id number] : 1970 Acct:[id number] Age/Sex: 55 / M ADM Date: 08/10/25 Loc: HO.HHCX Attending Dr: Milana Mata DO Ordering Physician: Milana Mata DO Date of Service: 08/10/25 Procedure(s): XR hand LT min 3V Accession Number(s): [id number] cc: Milana Mata DO Reason for Exam: [...] 08/10/25 1330 DD/ 1230 TD/TT: 08/10/25 1232 Drinking Water Technician: Procedure Note Donotuseinterpreter, Image - 08/10/2025 [place] [address] XRay Report Signed Patient: Patrick Osuna#: [id number] : 1970Acct:[id number] Age/Sex: 55 / MADM Date: 08/10/25 Loc: HO.HHCX Attending Dr: Milana Mata DO Ordering Physician: Milana Mata DO Date of Service: 08/10/25 Procedure(s): XR hand LT min 3V Accession Number(s): [id number] cc: Milana Mata DO Reason for Exam: [...] Sanchez MD Signed By: <Electronically signed by Anli Sanchez MD in OV> 08/10/25 1330 DD/ 1230 TD/TT: 08/10/25 1232 Drinking Water Technician: Milana Mata DO IMG XR PROCEDURES Edited [...] - 07/28/2025 10:20 AM EDT UTOX cup Lot#[id number] Exp. 07/28/26 Internal Pass Control Milana Mata DO POINT OF CARE TEST ENTER/MITZI T ORDERABLES Final Result * CT Abdomen w/ Contrast (07/21/2025 9:51 AM EDT) Anatomical Region Laterality Modality Body, Abdomen Computed Tomogra phy 07/21/2025 9:51 AM EDT Narrative 07/21/2025 10:34 AM EDT [address] [address] [address] Scan Report Signed Patient: Reynaldo Osuna MR#: [id number] : 1970 Acct:[id number] Age/Sex: 55 / M ADM Date: 07/21/25 Loc: HO.CT Attending Dr: Mona Webber MD Ordering Physician: Mona Chan MD Date of Service: 07/21/25 Procedure(s): CT abdomen w IV con Accession Number(s): [id number] cc: Mona Chan MD Report Number: [id number]: Total DLP = 343.00 mGy-cm Reason for [...] 07/21/25 1031 DD/ 0951 TD/TT: 07/21/25 1013 Drinking Water Technician: Procedure Note Donotuseinterpreter, Image - 07/21/[address] [place] [address] [address] Scan Report Signed Patient: Patrick Osuna#: [id number] : 1970Acct:[id number] Age/Sex: 55 / MADM Date: 07/21/25 Loc: HO.CT Attending Dr: Mona Webber MD Ordering Physician: Mona Chan MD Date of Service: 07/21/25 Procedure(s): CT abdomen w IV con Accession Number(s): [id number] cc: Mona Chan MD Report Number: [id number]: Total DLP = 343.00 mGy-cm Reason for [...] 07/21/25 1031 DD/ 0951 TD/TT: 07/21/25 1013 Drinking Water Technician: Mona Webber MD IMG CT PROCEDURES Edited Result - Final * CT Chest w/ Contrast (07/21/2025 9:51 AM EDT) Anatomical Region Laterality Modality Body, Chest Computed Tomogra phy 07/21/2025 9:51 AM EDT Narrative 07/21/2025 10:28 AM EDT [address] [address] [address] Scan Report Signed Patient: Reynaldo Osuna MR#: [id number] : 1970 Acct:[id number] Age/Sex: 55 / M ADM Date: 07/21/25 Loc: HO.CT Attending Dr: Mona Webber MD Ordering Physician: Mona Chan MD Date of Service: 07/21/25 Procedure(s): CT chest w IV con Accession Number(s): [id number] cc: Mona Chan MD Report Number: [id number]: Total DLP = 343.00 mGy-cm Reason for [...] 07/21/25 1025 DD/ 0951 TD/TT: 07/21/25 1013 Drinking Water Technician: Procedure Note Donotuseinterpreter, Image - 07/21/2025 [address] [address] [address] [address] Scan Report Signed Patient: Patrick Osuna#: [id number] : 1970Acct:[id number] Age/Sex: 55 / MADM Date: 07/21/25 Loc: HO.CT Attending Dr: Mona Webber MD Ordering Physician: Mona Chan MD Date of Service: 07/21/25 Procedure(s): CT chest w IV con Accession Number(s): [id number] cc: Mona Chan MD Report Number: [id number]: Total DLP = 343.00 mGy-cm Reason for [...] right upper lobe. It is unchanged from 202 and is no further follow-up. Chronic mild compression fracture of the superior endplate of T9. Mild multilevel degenerative disc disease. Fleischner guidelines were followed. Electronically signed by: Zeke Arzate MD 07/21/2025 10:25 AM EDT RP Dictated By: Zeke Arzate MD Signed By: <Electronically signed by Zeke Arzate MD in OV> 07/21/25 1025 DD/ 0951 TD/TT: 07/21/25 1013 Drinking Water Technician: Mona Webber MD IMG CT PROCEDURES Edited Result - Final * D Dimer High Sensitivity (07/10/2025 9:01 AM EDT) [facility] D Dimer High Sensitivity <150 NG/ML [facility] Comment:D-DIMER HS REFERENCE RANGENote: Our [...] MD LAB BLOOD ORDERAB LES Final Result [facility] [address] [place] [phone] * (ABNORMAL) CBC auto differential (07/10/2025 9:01 AM EDT) [facility] White Blood Count 6.6 4.8 - 10.8 X10*3/uL [facility] Red Blood Count 4.71 4.60 - 5.80 X10*6/uL [facility] Hemoglobin 12.3(L) 14.0 - 18.0 g/dl [facility] Hematocrit 37.9(L) 42.0 - 52.0 % [facility] Mean Corpuscular Volume 80.5 80.0 - 98.0 fL [facility] Mean Corpuscular Hemoglobin 26.1(L) 27.0 - 33.0 pg [facility] Mean Corpuscular HGB Conc 32.5 31.0 - 36.0 g/dl [facility] Red Cell Distribution Width 14.6 11.0 - 16.0 % [facility] Platelet Count 247 160 - 400 X10*3/uL [facility] Mean Platelet Volume 12.3 9.4 - 12.4 fL [facility] Neutrophils Percent Auto 62.9 45 - 73 % [facility] Imm Gran Pct Auto 0.3 0.0 - 0.4 % [facility] Lymphocytes Percent Auto 27.5 20 - 40 % [facility] Monocytes Percent Auto 7.0 2 - 11 % [facility] Eosinophils Percent Auto 1.8 0 - 4 % [facility] Basophils Percent Auto 0.5 0 - 2 % [facility] NRBC Pct Auto 0.0 0.0 - 0.2 /100WBC [facility] Neutrophils Absolute Auto 4.1 2.0 - 8.3 x10*3/uL [facility] Imm Gran Abs Auto 0.02 0.00 - 0.03 X10*3/uL [facility] Lymphocytes Absolute Auto 1.8 1.2 - 4.9 X10*3/uL [facility] Monocytes Absolute Auto 0.5 0.1 - 1.2 X10*3/uL [facility] Eosinophils Absolute Auto 0.1 0.0 - 0.4 X10*3/uL [facility] Basophils Absolute Auto 0.0 0.0 - 0.2 X10*3/uL [facility] NRBC Abs Auto 0.000 0.0 - 0.012 X10*3/uL [facility] 07/10/2025 9:01 AM EDT 07/10/2025 11:19 AM EDT Generic External Data Provider LAB BLOOD ORDERAB LES Final Result Performing Organization Address [facility] Co de Phone Number [facility] [address] [place] [phone] * (ABNORMAL) Sed Rate by Modified Westergren (07/10/2025 9:01 AM EDT) Erythrocyte Sedimentation Rate 25(H) 0 - 15 MM/HR [facility] Comment:Patients with polycy themia and many hemoglobin abnormalitiesmay have depressed sed rates whereas patients with anemiamay have elevated sed rates. 07/10/2025 9:01 AM EDT 07/10/2025 11:12 AM EDT Generic External Data Provider LAB BLOOD ORDERAB LES Final Result Performing Organization Address [facility] de Phone Number [facility] [address] [place] [phone] * Immunoglobulin E (07/10/2025 9:01 AM EDT) Pathologist [facility] Immunoglobulin E 72 <VR=132 kU/L [facility] Comment:THIS TEST WAS PERFOR MED AT:[facility] [address] [id number] VILLALPANDO MD 07/10/2025 9:01 AM EDT 07/10/2025 11:12 AM EDT Generic External Data Provider LAB BLOOD ORDERAB LES Final Result Performing Organization Address [facility] de Phone Number [facility] [address] [place] [phone] * (ABNORMAL) Fecal Globin by Immunochemistry (11/15/2023 9:03 AM EST) Fecal Globin By Immunochemistry SEE NOTE(A) [facility] Comment:FECAL GLOBIN BY IMMU NOCHEMISTRY Micro Number: [id number] Test Status: Final Specimen Source: Not given Specimen Quality: Adequate Fecal Globin: DetectedTHIS TEST WAS PERFORMED AT:[facility] [address] [id number] VILLALPANDO MD Stool Rectal contents / Unknown 11/15/2023 9:03 AM EST 11/15/2023 12:27 PM EST Fátima Bridges [facility] BODY FLUIDS AND STOOLS ORD ERABLES Final Result [facility] [address] [place] [phone] * Colonoscopy (04/19/2023 2:32 PM EDT) Colonoscopy Normal Normal Comment:Repeat in 5 years Historical Provider HEALTH MAINTENANCE Final Result from Last 3 Months or Most Recently Relevant to Health Maintenance Insurance [facility] C[facility] MEDICAID STAND ADULT Care Teams Plastics Supervisor Relationship Specialty Start Date End Date Milana Mata DO [address] [place] [phone] PCP - General Family Medicine 07/02/24
--- OUTSIDE RECORDS SUMMARY | 2025-10-07 08:03 | XMS_ITS | Encounter Summary ---
Author Organization [employer] Address [address] [facility] 7t [place] [address] Care Team Providers Care Health Outcomes Liaison Name Role Phone Campbell Salguero Primary Care Provider Unavail Sandra Mercado Primary Care Provider [phone] NameDaniel MD Primary Care Provider [phone] Milana Mata DO Primary Care Provider + [phone] Reason for Visit * Reason Onset Date Comments Nurse Triage 05/28/2023 Encounter Details Date Type Department Care Team (Late st Contact Info) Description 05/28/2023 Telephone [facility] [address] [place], [place] [phone] Campbell Salguero AGNP Nurse Triage Social History [...] 9:23 AM EDT Call to Pt with [place] Bre[employer] Up Machine Operator ID [id number] Pt is given message from EVIN Salguero, [...] accepted this outcome Please contact lissett at [phone] documented in this encounter Plan of Treatment Upcoming Encounters Date Type Department Care Team (Late st Contact Info) Description 10/28/2025 10:00 AM EST Clinical Support [facility] [address] [place] [address] Stacia Mcfarland, RN 12/28/2025 11:00 AM EDT Office Visit [facility] [address] [place], [place] [phone] Nancy Jesus, OD [address] [place] [phone] documented as of this encounter Visit Diagnoses Diagnosis Benign prostatic hyperplasia with incomplete bladder emptying- Primary documented in this encounter Additional Health Concerns Assessment Noted Time PHQ-9 Depression Total Score: 12 023 2:23 PM EDT documented as of this encounter Care Teams Health Outcomes Liaison Relationship Specialty Start Date End Date Campbell Salguero AGNP PCP - General Family Medicine 09/25/22 07/05/23 Sandra De Jesus FNP [address] [place] [address] PCP - General Family Medicine 07/06/23 06/23/24 Daniel Krause MD [address] [place] [address] PCP - General Internal Medicine 06/24/24 07/01/24 Milana Mata DO [address] [place] [address] PCP - General Family Medicine 07/02/24 documented as of this encounter
--- OUTSIDE RECORDS SUMMARY | 2025-10-07 08:03 | XMS_ITS | Encounter Summary ---
Author Organization [employer] Address [address] [facility] 7t [place] [address] Care Team Providers Care Global President Name Role Phone Jose M Campbell VERONICA Primary Care Provider Unavail Sandra Mercado Primary Care Provider + Name, Daniel العراقي Primary Care Provider [phone] Milana Mata DO Primary Care Provider [phone] Encounter Details Date Type Department Care Team (Late Contact Info) Description 04/25/2023 Telephone [facility] [address] [place], [place] [phone] Earlene Lange LPN Social History Tobacco Use [...] Description 10/28/2025 10:00 AM EST Clinical Support [facility] [address] [place] [address] Stacia Mcfarland, RN 12/28/2025 11:00 AM EDT Office Visit [facility] [address] [place], [place] [phone] Nancy Jesus, OD [address] [place] [address] documented as of this encounter Visit Diagnoses Not on filedocumented in this encounter Additional Health Concerns Assessment Noted Time PHQ-9 Depression Total Score: 12 023 2:23 PM EDT documented as of this encounter Care Teams Global President Relationship Specialty Start Date End Date Campbell Salguero AGNP PCP - General Family Medicine 09/25/22 07/05/23 Sandra De Jesus FNP [address] [place] [address] PCP - General Family Medicine 07/06/23 06/23/24 Daniel Krause MD [address] [place] [address] PCP - General Internal Medicine 06/24/24 07/01/24 Milana Mata DO [address] [place] [address] PCP - General Family Medicine 07/02/24 documented as of this encounter
--- OUTSIDE RECORDS SUMMARY | 2025-10-07 08:03 | XMS_ITS | Encounter Summary ---
Author Organization [employer] Address [address] [facility] 7t [place] [address] Care Team Providers Care Market Manager Name Role Phone Campbell Salguero AGNAny Primary Care Provider Unavail Sandra Mercado Primary Care Provider +- Daniel Krause MD Primary Care Provider [phone] Milana Mata DO Primary Care Provider [phone] Reason for Visit * Reason Comments Med Refill Encounter Details Date Type Department Care Team ([facility] st Contact Info) Description 04/05/2023 Refill [facility] [address] [place], [place] [phone] Evie Francisco MD [address] [place] [address] Allergic rhinitis, unspecified seasonality, unspecified trigger Social [...] 10/28/2025 10:00 AM EST Clinical Support [facility] [address] [place] [address] Stacia Mcfarland, RN 12/28/2025 11:00 AM EDT Office Visit [facility] [address] [place], [place] [phone] Nancy Jesus, OD [address] [place] [address] documented as of this encounter Visit Diagnoses Diagnosis Allergic rhinitis, unspecified seasonality, unspecified trigger documented in this encounter Additional Health Concerns Assessment Noted Time PHQ-9 Depression Total Score: 12 023 2:23 PM EDT documented as of this encounter Care Teams Market Manager Relationship Specialty Start Date End Date Campbell Salguero AGNP PCP - General Family Medicine 09/25/22 07/05/23 Sandra De Jesus FNP [address] [place] [address] PCP - General Family Medicine 07/06/23 06/23/24 [place] [address] PCP - General Internal Medicine 06/24/24 07/01/24 Milana Mata DO [address] [place] [phone] PCP - General Family Medicine 07/02/24 documented as of this encounter
--- OUTSIDE RECORDS SUMMARY | 2025-10-07 08:03 | XMS_ITS | Encounter Summary ---
Author Organization [employer] Address [address] [facility] 7t [place] [address] Care Team Providers Care Fraternity Adviser Name Role Phone Campbell Salguero AGNAny Primary Care Provider Unavail Sandra Mercado Primary Care Provider [phone] Daniel Krause MD Primary Care Provider [phone] Milana Mata DO Primary Care Provider + [phone] Reason for Visit * Reason Comments Med Refill Encounter Details Date Type Department Care Team (Late Contact Info) Description 07/04/2023 Refill [facility] [address] [place] [phone] Name, MD Daniel [address] [place] [address] Social History Tobacco Use Types Packs/Day Years [...] Description 10/28/2025 10:00 AM EST Clinical Support [facility] [address] [place] [phone] Stacia Mcfarland, RN 12/28/2025 11:00 AM EDT Office Visit [facility] [address] [place] [address] Nancy Jesus, RONAK [address] [place] [address] documented as of this encounter Visit Diagnoses Not on filedocumented in this encounter Additional Health Concerns Assessment Noted Time PHQ-9 Depression Total Score: 12 023 2:23 PM EDT documented as of this encounter Care Teams Fraternity Adviser Relationship Specialty Start Date End Date Campbell Salguero AGNP PCP - General Family Medicine 09/25/22 07/05/23 Sandra De Jesus FNP [address] [place] [address] PCP - General Family Medicine 07/06/23 06/23/24 Daniel Krause MD [address] [place] [address] PCP - General Internal Medicine 06/24/24 07/01/24 Milana Mata DO [address] [place] [address] PCP - General Family Medicine 07/02/24 documented as of this encounter
== END ==
LOC: HO.CARD 07:57
PROVIDERS: Visit Provider Internal Medicine Cardiovascular Disease
DX: R07.89 Other chest pain (principal)
CPT/HCPCS: 93017

== ENCOUNTER → 2025-10-07 08:00 | Outpatient (BNV) | payer MEDICAID, SELFPAY | DX: R07.9 Chest pain, unspecified (principal) | CPT/HCPCS: 93016; 93018 ==